=== PATIENT | male | born 1950 | race Caucasian/White ===

== ENCOUNTER 2017-12-13 12:55 | Emergency (ER) | payer MEDICARE, OTHER ==
[~2017-12-13] VITALS: Ht 177.8 cm; Wt 79.4 kg
--- OUTSIDE RECORDS SUMMARY | 2017-12-13 13:06 | XMS REPORT ---
Author Author Lui Renee [facility] Address [address] [place] [address] Care Team Providers Care Director Of Nursing Name Role Phone Lui Renee Unavailable PROBLEMS ALLERGIES Unknown Allergies SOCIAL HISTORY No smoking Hx information available PLAN OF CARE VITAL SIGNS MEDICATIONS RESULTS No Results PROCEDURES IMMUNIZATIONS No Known Immunizations
--- OUTSIDE RECORDS SUMMARY | 2017-12-13 13:06 | XMS REPORT | Referral Summary ---
Author Author [facility] Organization [facility] Address Unknown Phone Unavailable Care Team Providers Care Lane Attendant Name Role Phone No PCP, Pt States PCP Encounter VC Date(s): 03/23/17 - 03/29/17 [facility] [address] [place] [address] Discharge Disposition: 03-[facility] Facility Attending Physician: Laney Morse MD Admitting Physician: Matt Tyler MD Vital Signs Most recent to 1 oldest [Reference Range]: Temperature Oral 36.9 degC [35.8-37.3 degC] (03/29/17 12:06 PM) Peripheral Pulse 64 bpm Rate [60-100 bpm] (03/29/17 12:06 PM) Heart Rate Monitored 65 bpm [60-100 bpm] (03/27/17 8:00 AM) Respiratory Rate 16 br/min [14-20 br/min] (03/29/17 12:06 PM) Blood Pressure 131/61 mmHg [90-140/60-90 mmHg] (03/29/17 12:06 PM) Mean Arterial 118 mmHg Pressure, Cuff (03/24/17 12:54 AM) SpO2 98 % (03/29/17 12:06 PM) Remote Telemetry Ongoing (03/25/17 2:45 AM) Problem List Condition Effective Dates Status Health Status Informant Acute Active pain(Confirmed) At risk of pressure Active sore(Confirmed) CVA (cerebral Active patient vascular accident)(Confirmed) OH (myocardial Active patient infarction)(Confirme d) No Chronic Problems Active Tissue perfusion Active alteration(Confirmed )1 1Problem added automatically by system based on initiation of Tissue Perfusion Cerebral Plan of Care Allergies, Adverse Reactions, Alerts No Known Allergies Medications aspirin 81 mg oral tablet, chewable 81 mg 1 tabs, Oral, Daily, # 30 tabs, 0 Refill(s) Start Date: 03/29/17 Stop Date: 04/28/17 Status: Ordered atorvastatin 80 mg oral tablet 80 mg 1 tabs, Oral, Daily, 0 Refill(s) Start Date: 03/23/17 Status: Ordered terazosin 1 mg oral capsule 2 mg 2 caps, Oral, Bedtime (once a day), 0 Refill(s) Start Date: 03/23/17 Status: Ordered Results Hematology Most recent to 1 oldest [Reference Range]: WBC [4.8-10.8 9.9 10*3/uL 10*3/uL] (03/29/17 5:37 AM) RBC [4.60-6.20] 4.42 *LOW* (03/29/17 5:37 AM) Hgb [14.0-18.0 12.0 gm/dL gm/dL] *LOW* (03/29/17 5:37 AM) Hct [42.0-52.0 %] 36.9 % *LOW* (03/29/17 5:37 AM) MCV [82.0-99.0 fL] 83.5 fL (03/29/17 5:37 AM) MCH [27.0-32.0 pg] 27.1 pg (03/29/17 5:37 AM) MCHC [32.0-36.0 32.5 gm/dL gm/dL] (03/29/17 5:37 AM) RDW [11.5-14.5 %] 14.0 % (03/29/17 5:37 AM) Platelet [150-400 221 10*3/uL 10*3/uL] (03/29/17 5:37 AM) MPV [9.4-12.3 fL] 9.2 fL *LOW* (03/29/17 5:37 AM) Immature 1.0 % Granulocytes (03/24/17 6:14 AM) [0.0-1.0 %] Neutrophils [51-75 83 % %] *HI* (03/24/17 6:14 AM) Lymphocytes [20-46 7 % %] *LOW* (03/24/17 6:14 AM) Monocytes [4-11 %] 8 % (03/24/17 6:14 AM) Eosinophils [0-4 %] 0 % (03/24/17 6:14 AM) Basophils [0-2 %] 0 % (03/24/17 6:14 AM) Neutro Absolute 12.55 [1.90-7.00] *HI* (03/24/17 6:14 AM) Lymph Absolute 1.08 [0.80-3.30] (03/24/17 6:14 AM) [place] Absolute 1.23 [0.30-1.00] *HI* (03/24/17 6:14 AM) Eos Absolute 0.05 [0.00-0.50] (03/24/17 6:14 AM) Baso Absolute 0.01 [0.00-0.20] (03/24/17 6:14 AM) Nucleated RBC 0.0 /100 WBC Automated [0 /100 (03/24/17 6:14 AM) WBC] Smear Review By See pathology Pathologist (03/24/17 6:14 AM) Chemistry Most recent to 1 oldest [Reference Range]: Sodium Lvl [136-144 133 mEq/L mEq/L] *LOW* (03/29/17 5:37 AM) Potassium Lvl 4.3 mEq/L [3.6-5.1 mEq/L] (03/29/17 5:37 AM) Chloride [99-109 98 mEq/L mEq/L] *LOW* (03/29/17 5:37 AM) CO2 [22-32 mEq/L] 28 mEq/L (03/29/17 5:37 AM) AGAP [3-20 mEq/L] 7 mEq/L (03/29/17 5:37 AM) BUN [4-20 mg/dL] 22 mg/dL *HI* (03/29/17 5:37 AM) Glucose Lvl [70-100 62 mg/dL mg/dL] *LOW* (03/29/17 5:37 AM) Creatinine Lvl 1.09 mg/dL [0.64-1.27 mg/dL] (03/29/17 5:37 AM) eGFR [>60 mL/min] >60 mL/min 1 (03/29/17 5:37 AM) Calcium Lvl 9.1 mg/dL [8.6-10.0 mg/dL] (03/29/17 5:37 AM) Albumin Lvl [3.5-4.8 2.3 gm/dL gm/dL] *LOW* (03/28/17 6:06 AM) Total Protein 6.2 gm/dL [6.1-7.9 gm/dL] (03/23/17 4:00 PM) Globulin [1.9-4.3 3.7 gm/dL gm/dL] (03/23/17 4:00 PM) ALT [17-63 U/L] 26 U/L (03/23/17 4:00 PM) AST [15-41 U/L] 29 U/L (03/23/17 4:00 PM) Alk Phos [26-104 86 U/L U/L] (03/23/17 4:00 PM) Bili Total [0.2-1.2 1.0 mg/dL 2 mg/dL] (03/23/17 4:00 PM) Magnesium Lvl 2.3 mg/dL [1.8-2.5 mg/dL] (03/28/17 6:06 AM) Phosphorus [2.4-4.7 3.5 mg/dL 3 mg/dL] (03/28/17 6:06 AM) Total CK [49-397 22 U/L U/L] *LOW* (03/24/17 6:14 AM) Lactic Acid Lvl 0.9 mEq/L [0.5-2.2 mEq/L] (03/23/17 9:06 PM) 25-Hydroxy D Total 46 ng/mL 4 [30-100 ng/mL] (03/24/17 4:26 PM) Vitamin B12 Lvl 459 pg/mL [213-816 pg/mL] (03/24/17 4:26 PM) Chol [0-199 mg/dL] 110 mg/dL (03/24/17 4:26 PM) Trig [0-149 mg/dL] 67 mg/dL (03/24/17 4:26 PM) HDL [40-84 mg/dL] 24 mg/dL *LOW* (03/24/17 4:26 PM) LDL [0-130 mg/dL] 73 mg/dL (03/24/17 4:26 PM) VLDL Cholesterol 13 mg/dL [0-28 mg/dL] (03/24/17 4:26 PM) Cardiac Risk 4.6 [0.0-5.7] (03/24/17 4:26 PM) T4 Free [0.7-1.5 1.3 ng/dL ng/dL] (03/24/17 4:26 PM) TSH with Reflex Free 0.18 T4 [0.35-4.94] *LOW* (03/24/17 4:26 PM) Hgb A1c [4.1-5.6 %] 5.9 % *HI* (03/24/17 4:26 PM) eAvg Glucose 122.6 mg/dL (03/24/17 4:26 PM) Procalcitonin 0.75 ng/mL 5 [0.00-0.09 ng/mL] *HI* (03/24/17 6:14 AM) 1Result Comment: Multiply eGFR results by 1.21 for race. 2Result Comment: Naproxen, specifically the metabolite O-desmethylnaproxen, may cause spurious elevation in Total Bilirubin levels. 3Result Comment: High dosages of liposomal Amphotericin B (AmBisome) therapy or other drug preparations that use a liposomal envelope to facilitate drug delivery may cause falsely elevated results for phosphorus. 4Result Comment: Note new methodology, reference range and reporting of Vitamin D total only. A level consistently >200 is potentially toxic. 5Result Comment: Normal: <0.1 ng/mL (infants >72 hrs - adults) Suspected Lower Respiratory Tract Infection 0.10-0.25 ng/mL=Low likelihood for bacterial infection; Antibiotics discouraged. >0.25 ng/mL=Increased likelihood for bacterial infection; Antibiotics encouraged. Suspected Sepsis: Strongly consider initiating antibiotics in all unstable patients. 0.10-0.50 ng/mL=Low likelihood for sepsis; Antibiotics discouraged. >0.50 ng/mL=Increased likelihood for sepsis; Antibiotics encouraged. Decisions on antibiotic use should not be based solely on procalcitonin levels. If antibiotics are administered, repeat procalcitonin testing should be obtained every 2-3 days to consider early antibiotic cessation. PCT is a dynamic biomarker and most useful when trends are analyzed over time in accompaniment with other clinical data. Interpretation should be based upon clinical context and algorithms. Toxicology Most recent to 1 oldest [Reference Range]: U Amphetamine Scrn Negative (03/23/17 4:50 PM) U Cocaine Scrn Negative (03/23/17 4:50 PM) U Cannab Scrn Negative (03/23/17 4:50 PM) U Opiate Scrn Negative (03/23/17 4:50 PM) U PCP Scrn Negative (03/23/17 4:50 PM) U Benzodiazepine Negative Scrn (03/23/17 4:50 PM) U Barbiturate Scrn Negative (03/23/17 4:50 PM) Methadone Lvl Negative (03/23/17 4:50 PM) Tricyclics Not Detected 1 (03/23/17 4:50 PM) 1Result Comment: Cut-off concentrations: Amphetamines: 1000 ng/mL Cocaine: 300 ng/mL Cannabinoid: 50 ng/mL Opiate: 300 ng/mL Phencyclidine (PCP): 25 ng/mL Benzodiazepine: 200 ng/mL Barbiturate: 200 ng/mL Methadone: 300 ng/mL Tricyclic: 300 ng/mL The urine drug screen assays are qualitative screens. A more specific GC/MS method must be performed to obtain a confirmed analytical result. Unconfirmed screening results must not be used for non-medical purposes(e.g. employment or legal testing) Urinalysis Most recent to 1 oldest [Reference Range]: UA Color Maite *ABN* (03/23/17 4:50 PM) UA Appear Clear (03/23/17 4:50 PM) UA pH [5.0-8.0] 6.0 (03/23/17 4:50 PM) UA Leuk Est Negative [Negative] (03/23/17 4:50 PM) UA Nitrite Negative [Negative] (03/23/17 4:50 PM) UA Protein Negative [Negative] (03/23/17 4:50 PM) UA Glucose Negative [Negative] (03/23/17 4:50 PM) UA Ketones Negative [Negative] (03/23/17 4:50 PM) UA Urobilinogen 2.0 mg/dL [<1.0 mg/dL] *ABN* (03/23/17 4:50 PM) UA Bili [Negative] Negative (03/23/17 4:50 PM) UA Blood [Negative] Pos 2+ *ABN* (03/23/17 4:50 PM) UA Spec Grav 1.020 [1.003-1.030] (03/23/17 4:50 PM) Type Catheter (03/23/17 4:50 PM) UA WBC [0-4] 0-2 (03/23/17 4:50 PM) UA RBC [0-2] 2-5 (03/23/17 4:50 PM) Epithelial Cells None Seen (03/23/17 4:50 PM) UA Bacteria None Seen (03/23/17 4:50 PM) UA Mucous Present (03/23/17 4:50 PM) Microbiology Reports TEST: Blood Culture STATUS: Auth (Verified) BODY SITE: SOURCE: Blood COLLECTED DATE/TIME: 03/23/17 9:11 PM Blood Culture No growth after 5 days of incubation. TEST: Blood Culture STATUS: Auth (Verified) BODY SITE: SOURCE: Blood COLLECTED DATE/TIME: 03/23/17 9:06 PM Blood Culture No growth after 5 days of incubation. Immunizations No data available for this section Procedures Procedure Date Related Diagnosis Body Site Procedure1 1leg surgery Social History Social History Type Response Smoking Status Former smoker Assessment and Plan No data available for this section
--- OUTSIDE RECORDS SUMMARY | 2017-12-13 13:06 | XMS REPORT ---
Author Author Lui Renee [facility] Address [address] [place] [address] Care Team Providers Care Shovel Mechanic Name Role Phone Lui Renee Unavailable PROBLEMS Type Condition ICD9-CM Code [id number] Code Onset Dates Condition Status SNOMED Code Problem Other specified counseling V65.49 Inactive 361387483 Problem Other and unspecified angina pectoris 413.9 Inactive 232305088 Problem Hypertrophy (benign) of prostate without urinary obstruction and other lower urinary tract symptoms [LUTS] 600.00 Inactive 815261563 Problem Special screening for malignant neoplasms, colon V76.51 Inactive 619940005 Problem Nocturia 788.43 Inactive 800592376 Problem Vaccination not carried out because of patient refusal V64.06 Inactive 221236030637 Problem Personal history of tobacco use, presenting hazards to health V15.82 Inactive 9412906957853 Problem Prostatic hyperplasia N40.0 Active 378387939 Problem Hypertension I10 Active 93582610 Problem Obesity E66.9 Active 297202706 Problem Unspecified cerebrovascular disease 437.9 Inactive 24710737 Problem Hyperlipemia E78.5 Active 45289035 Problem CVA (cerebral vascular accident) I63.9 Active 067177572 ALLERGIES Unknown Allergies SOCIAL HISTORY No smoking Hx information available PLAN OF CARE VITAL SIGNS MEDICATIONS Medication Instructions Dosage Frequency Start Date End Date Duration Status Atorvastatin Calcium 80 MG Orally Once a day 1 tablet 24h Jul, 90 days Active RESULTS No Results PROCEDURES No Known procedures IMMUNIZATIONS No Known Immunizations
--- OUTSIDE RECORDS SUMMARY | 2017-12-13 13:06 | XMS REPORT ---
Author Author Lui Renee [facility] Address [address] [place] [address] Care Team Providers Care Actuarial Manager Name Role Phone Lui Renee Unavailable PROBLEMS Type Condition ICD9-CM Code [id number] Code Onset Dates Condition Status SNOMED Code Problem Other specified counseling V65.49 Inactive 722232781 Problem Other and unspecified angina pectoris 413.9 Inactive 819340596 Problem Hypertrophy (benign) of prostate without urinary obstruction and other lower urinary tract symptoms [LUTS] 600.00 Inactive 136684705 Problem Special screening for malignant neoplasms, colon V76.51 Inactive 771491386 Problem Nocturia 788.43 Inactive 798323946 Problem Vaccination not carried out because of patient refusal V64.06 Inactive 980260456152 Problem Personal history of tobacco use, presenting hazards to health V15.82 Inactive 6574337685273 Problem Prostatic hyperplasia N40.0 Active 271274237 Problem Hypertension I10 Active 87706107 Problem Obesity E66.9 Active 069222267 Problem Unspecified cerebrovascular disease 437.9 Inactive 72126416 Problem Hyperlipemia E78.5 Active 92229821 Problem CVA (cerebral vascular accident) I63.9 Active 614662809 ALLERGIES Unknown Allergies SOCIAL HISTORY No smoking Hx information available PLAN OF CARE VITAL SIGNS MEDICATIONS Unknown Medications RESULTS No Results PROCEDURES No Known procedures IMMUNIZATIONS No Known Immunizations
--- OUTSIDE RECORDS SUMMARY | 2017-12-13 13:06 | XMS REPORT ---
Author Author Lui Renee [facility] Address [address] [place] [address] Care Team Providers Care Instructional Manager Name Role Phone Ariana Ragland Lui Unavailable PROBLEMS Type Condition ICD9-CM Code DSI82-AW Code Onset Dates Condition Status SNOMED Code Problem Nocturia 788.43 Inactive 972748246 Problem Unspecified cerebrovascular disease 437.9 Inactive 69117095 Problem Hypertrophy (benign) of prostate without urinary obstruction and other lower urinary tract symptoms [LUTS] 600.00 Inactive 468300279 Problem Special screening for malignant neoplasms, colon V76.51 Inactive 959452600 Problem Other specified counseling V65.49 Inactive 940234084 Problem Vaccination not carried out because of patient refusal V64.06 Inactive 399254685261 Problem Personal history of tobacco use, presenting hazards to health V15.82 Inactive 1005570718253 Problem Prostatic hyperplasia N40.0 Active 255782493 Problem CVA (cerebral vascular accident) I63.9 Active 119809453 Problem Hyperlipemia E78.5 Active 93379422 Problem Other and unspecified angina pectoris 413.9 Inactive 519551229 Problem Hypertension I10 Active 56622531 Problem Obesity E66.9 Active 736937320 ALLERGIES No Information SOCIAL HISTORY Never Assessed PLAN OF CARE VITAL SIGNS MEDICATIONS Unknown Medications RESULTS No Results PROCEDURES No Known procedures IMMUNIZATIONS No Known Immunizations MEDICAL (GENERAL) HISTORY Type Description Date Medical History ACUTE, BUT ILL-DEFINED, CEREBROVASCULAR DISEASE (436.) ; Medical History HTN (hypertension) (401.9) ; Medical History Tobacco abuse, 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 Medical History Residual Dysarthria and Gait Disturbance- Ambulates with Cane ; Medical History Benign prostate hyperplasia
--- OUTSIDE RECORDS SUMMARY | 2017-12-13 13:06 | XMS REPORT ---
Author Author Lui Renee Organization [employer] Address Unknown Phone Unavailable Care Team Providers Care Cosmetology Educator Name Role Phone Lui Renee CP Unavailable Allergies No Known Allergies Problems Problem Type Condition Code Onset Dates Condition Status Problem Personal history of tobacco use, presenting hazards to health V15.82 Inactive Problem Hypertrophy (benign) of prostate without urinary obstruction and other lower urinary tract symptoms [LUTS] 600.00 Inactive Problem Other specified counseling V65.49 Inactive Problem Hyperlipemia E78.5 Active Problem CVA (cerebral vascular accident) I63.9 Active Problem Hypertension I10 Active Problem Unspecified cerebrovascular disease 437.9 Inactive Problem Other and unspecified angina pectoris 413.9 Inactive Problem BPH (benign prostatic hyperplasia) N40.0 Active Problem Obesity E66.9 Active Problem Special screening for malignant neoplasms, colon V76.51 Inactive Problem Nocturia 788.43 Inactive Problem Vaccination not carried out because of patient refusal V64.06 Inactive Medications No Known Medications Results No Known Results Summary Purpose [employer] Submission
--- OUTSIDE RECORDS SUMMARY | 2017-12-13 13:06 | XMS REPORT ---
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 Active Problem Hyperplasia of prostate, unspecified, without urinary obstruction and other lower urinary tract symptoms [LUTS] 600.90 Active Problem Unspecified essential hypertension 401.9 Active Problem Other and unspecified hyperlipidemia 272.4 Active Problem Unspecified cerebrovascular disease 437.9 Inactive Problem Hypertrophy (benign) of prostate without urinary obstruction and other lower urinary tract symptoms [LUTS] 600.00 Inactive Problem Other specified counseling V65.49 Inactive Problem Other and unspecified angina pectoris 413.9 Inactive Problem Anxiety state, unspecified 300.00 Active Problem Special screening for malignant neoplasms, colon V76.51 Inactive Problem Nocturia 788.43 Inactive Assessment Unspecified essential hypertension 401.9 Active Problem Vaccination not carried out because of patient refusal V64.06 Inactive Problem Obesity, unspecified 278.00 Active Problem Orthostatic hypotension 458.0 Active Medications Medication Code System Code Instructions Start Date End Date Status Dosage Lisinopril-Hydrochlorothiazide [facility] [address]-18 20-12.5 MG Orally Once a day Jul 23, 2014 Active 1 tablet Results No Known Results Summary Purpose [employer] Submission
--- OUTSIDE RECORDS SUMMARY | 2017-12-13 13:07 | XMS REPORT | Continuity of Care Document ---
Author Author [facility] Organization [facility] Address Unknown Phone Unavailable Allergies Active Description Code Type Severity Reaction Onset Reported/Identified Relationship to Patient Clinical Status Yes Penicillins Penicillins Drug Allergy Moderate RASH 10/07/2011 Yes No Known Allergies NKMA N/A N/A 03/23/2017 Yes penicillin NKMA N/A [id number] 05/07/2017 Medications Medication Packaging Start Date Stop Date Route Dosage Sig terazosin(terazosin 1 mg oral capsule) 2 caps 03/23/2017 Oral 2 mg 2 mg=2 caps, Oral, Bedtime (once a day), 0 Refill(s) atorvastatin(atorvastatin 80 mg oral tablet) 1 tabs 03/23/2017 Oral 80 mg 80 mg=1 tabs, Oral, Daily, 0 Refill(s) metoclopramide(Reglan) 2 mL 201603/29/2017 IV Push 10 mg 10 mg=2 mL, IV Push, q6hr, PRN: Nausea atorvastatin(atorvastatin) 1 tabs 03/23/2017 03/24/2017 Oral 80 mg 80 mg=1 tabs, Oral, Daily docusate(Colace) 1 caps 03/23/2017 03/29/2017 Oral 100 mg 100 mg=1 caps, Oral, BID ondansetron(Zofran) 2 mL 201603/29/2017 IV Push 4 mg 4 mg=2 mL, IV Push, q6hr, PRN: Nausea terazosin(terazosin) 1 caps 201603/29/2017 Oral 2 mg 2 mg=1 caps, Oral, Bedtime (once a day) polyethylene glycol 3350(MiraLax) 1 packets 03/23/2017 03/29/2017 Oral 17 g 17 g=1 packets, Oral, Daily, PRN: Constipation enoxaparin(Lovenox) 0.4 mL 201603/29/2017 SubCutaneous 40 mg 40 mg=0.4 mL, SubCutaneous, Bedtime (once a day) Sodium Chloride 0.9%(Sodium Chloride 0.9% 1,000 mL) 1,000 mL 03/23/2017 03/26/2017 IV 80 mL/hr, IV acetaminophen(acetaminophen) 2 tabs 03/23/2017 03/29/2017 Oral 650 mg 650 mg=2 tabs, Oral, q4hr, PRN: Other (See Comment) potassium chloride(potassium chloride 20 mEq oral tablet, extended release) 2 tabs 03/24/20172016 Oral 40 mEq 40 mEq=2 tabs, Oral, BID aspirin(aspirin) 1 tabs 03/24/2017 03/29/2017 Oral 81 mg 81 mg=1 tabs, Oral, Daily potassium chloride(potassium chloride 10 mEq/50 mL intravenous solution) 50 mL 03/24/20172016 IV Piggyback 10 mEq 10 mEq=50 mL, 50 mL/hr, IV Piggyback, q1hr aspirin(aspirin 81 mg oral tablet, chewable) 1 tabs 03/29/2017 04/28/2017 Oral 81 mg 81 mg=1 tabs, Oral, Daily, for 30 days, 30 tabs, 0 Refill(s) cefTRIAXone(Rocephin) 10 mL 201605/07/2017 IV Push 1 g 1 g=10 mL, IV Push, Once cephalexin(cephalexin 500 mg oral tablet) 1 tabs 05/07/2017 05/14/2017 Oral 500 mg 500 mg=1 tabs, Oral, BID, for 7 days, 14 tabs, 0 Refill(s) Problems Date Dx Coded Attending Type Code Diagnosis Diagnosed By 05/10/2017 Bass Denise Final I10 Essential (primary) hypertension 05/10/2017 Bass Denise Final I25.2 Old myocardial infarction 05/10/2017 Bass Denise Final N39.0 Urinary tract infection, site not specified 05/10/2017 Bass Denise Reason R42 Dizziness and giddiness 05/10/2017 Bass Denise 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 <section xmlns="urn:hl7-org:v3" xmlns:xsi="http:// www.Twitmusic3.org/2001/XMLSchema-instance"> <templateId root= "[email or web address]" /> <templateId root= "[id number]" /> <code codeSystemName="LOINC" codeSystem= "[id number]" code="00086-8" displayName="Results" /> <title>Results< /title> <text> <table> <thead> <tr> <th>Test</th> <th>Result</th> <th>Range</th> </tr> </thead> < tbody> <tr> <th colspan="10">CBC W/DIFF - 09/28/16 11:22</th> </tr> <tr> <td>COMMENT</td> <td>REVIEWED </td> <td /> </tr> <tr> <td>DOHLE BODIES</td> <td>NOTED </td> <td /> </tr> <tr> <td> GRANULOCYTE #</td> <td>16.6 k/cumm</td> <td>2.0-9.0</td> </tr> <tr> <td>GRANULOCYTE %</td> <td>91 %</ td> <td>50-75</td> </tr> <tr> <td>LYMPHOCYTE #</ td> <td>0.3 k/cumm</td> <td>1.0-4.0</td> </tr> < tr> <td>LYMPHOCYTE %</td> <td>2 %</td> <td>20 -30</td> </tr> <tr> <td>MEAN CELL HGB</td> <td> 27.3 pg</td> <td>27.0-33.0</td> </tr> <tr> <td> MEAN CELL HGB CONCENTRATION</td> <td>34.2 g/dL</td> <td>32.0- 37.0</td> </tr> <tr> <td>MEAN CELL VOLUME</td> < td>79.6 fl</td> <td>80.0-100.0</td> </tr> <tr> < td>MONOCYTE #</td> <td>1.3 k/cumm</td> <td>0.1-1.0</td> </tr> <tr> <td>MONOCYTE %</td> <td>7 %</td> <td>4-6</td> </tr> <tr> <td>RED BLOOD CELL</td> <td>5.54 m/cumm</td> <td>4.00-6.00</td> </tr> < tr> <td>RED CELL DISTRIBUTION WIDTH</td> <td>13.5 %</td> <td>11.0-15.6</td> </tr> <tr> <td>WHITE BLOOD CELL</td> <td>18.2 k/cumm</td> <td>5.0-10.0</td> </tr> <tr> <td>HEMOGLOBIN</td> <td>15.1 gm/dL</td> <td>14.0-18.0</td> </tr> <tr> <td>HEMATOCRIT</td> <td>44.1 %</td> <td>40.0-54.0</td> </tr> <tr> <td>PLATELET COUNT</td> <td>102 k/cumm</td> <td>150-400< /td> </tr> <tr> <th colspan="10">ALCOHOL (ETHANOL) SERUM - 09/28/16 11:22</th> </tr> <tr> <td>ALCOHOL (ETHANOL) SERUM</td> <td>< 10 mg/dL</td> <td> < 10</td> </ tr> <tr> < colspan="10">CHEM/HEM PROFILE-BEDSIDE - 09/28/16 11 :30</th> </tr> <tr> <td>POTASSIUM</td> <td>3.5 mmol/L</td> <td>3.5-5.3</td> </tr> <tr> <td> METHOD</td> <td>Bedside </td> <td /> </tr> <tr> <td>ANION GAP</td> <td>19 mmol/L</td> <td>10-20</td > </tr> <tr> <td>METHOD</td> <td>Bedside </td> <td /> </tr> <tr> <td>GLUCOSE</td> <td> 119 mg/dL</td> <td>70-99</td> </tr> <tr> <td> BLOOD UREA NITROGEN</td> <td>40 mg/dL</td> <td>7-20</td> </tr> <tr> <td>CREATININE</td> <td>1.5 mg/dL</td> <td>0.7-1.3</td> </tr> <tr> <td>HEMOGLOBIN</td> <td>15.3 gm/dL</td> <td>14.0-18.0</td> </tr> <tr > <td>HEMATOCRIT</td> <td>45.0 %</td> <td>40.0- 54.0</td> </tr> <tr> <td>SODIUM</td> <td>131 mmol/L</td> <td>135-148</td> </tr> <tr> <td> CHLORIDE</td> <td>96 mmol/L</td> <td>98-110</td> </tr> <tr> <td>CARBON DIOXIDE</td> <td>21 mmol/L</td> <td>21-32</td> </tr> <tr> <td>CALCIUM IONIZED</td> <td>4.7 mg/dL</td> <td>4.5-5.3</td> </tr> <tr> <th colspan="10">BLOOD CULTURE - 09/28/16 13:05</th> </tr> <tr> <td>Microbiology</td> <td> </td> <td /> </tr> <tr> <th colspan="10">LACTIC ACID - 09/28/16 13:05</th> </tr> <tr> <td>LACTIC ACID</td> <td>2.3 mmol/L< /td> <td>0.5-2.0</td> </tr> <tr> <th colspan="10 ">BLOOD CULTURE - 09/28/16 13:09</th> </tr> <tr> <td> Microbiology</td> <td> </td> <td /> </tr> <tr> <th colspan="10">INFLUENZA A OIA - INFLUENZA B OIA - 09/28/16 13:58</th > </tr> <tr> <td>Microbiology</td> <td> </td> <td /> </tr> <tr> <th colspan="10">URINALYSIS, ROUTINE - 09/28/16 14:10</th> </tr> <tr> <td>UA LEUKOCYTE ESTERASE DIPSTICK</td> <td>TRACE </td> <td>NEGATIVE< /td> </tr> <tr> <td>UA NITRITE DIPSTICK</td> <td >POSITIVE </td> <td>NEGATIVE</td> </tr> <tr> <td >UA PROTEIN DIPSTICK</td> <td>TRACE </td> <td>NEGATIVE</td> </tr> <tr> <td>UA GLUCOSE DIPSTICK</td> <td> NEGATIVE </td> <td>NEGATIVE</td> </tr> <tr> <td> UA KETONE DIPSTICK</td> <td>1+ </td> <td>NEGATIVE</td> </tr> <tr> <td>UA UROBILINOGEN DIPSTICK</td> <td>2+ </ td> <td>NORMAL</td> </tr> <tr> <td>UA BILIRUBIN DIPSTICK</td> <td>POSITIVE </td> <td>NEGATIVE</td> </tr > <tr> <td>UA BLOOD DIPSTICK</td> <td>1+ </td> <td>NEGATIVE</td> </tr> <tr> <td>UA SPECIFIC GRAVITY</ td> <td>1.029 </td> <td>1.015-1.025</td> </tr> < tr> <td>UR PH</td> <td>5.0 </td> <td>5.0-7.0</td> </tr> <tr> < colspan="10">UA MICROSCOPIC - 09/28/16 14:10 </th> </tr> <tr> <td>UA AMORPHOUS SEDIMENT</td> <td>2+ </td> <td /> </tr> <tr> <td>UA BACTERIA</ td> <td>1+ </td> <td>NEGATIVE</td> </tr> <tr> <td>UA RBC</td> <td>5-10 rbc/hpf</td> <td>0 - 3</td> </tr> <tr> <td>UA VOLUME FOR EXAM</td> <td>12.0 mL</td> <td>(12mL STD)</td> </tr> <tr> <td>UA WBC</td> <td>0-1 wbc/hpf</td> <td>0 - 5</td> </tr> <tr> < colspan="10">UR DRUGS OF ABUSE SCREEN - 09/28/16 14:10</th > </tr> <tr> <td>UR AMPHETAMINES SCREEN</td> <td >NEG (<1000 ng/mL) </td> <td>NEGATIVE</td> </tr> <tr > <td>UR BARBITURATE SCREEN</td> <td>NEG (< 200 ng/mL) </ td> <td>NEGATIVE</td> </tr> <tr> <td>DRUGS OF ABUSE SCREEN COMMENT</td> <td> </td> <td /> </tr> <tr> <td>UR OPIATES SCREEN</td> <td>NEG (< 300 ng/ mL) </td> <td>NEGATIVE</td> </tr> <tr> <td>UR PHENCYCLIDINE (PCP) SCREEN</td> <td>NEG (< 25 ng/mL) </td> <td>NEGATIVE</td> </tr> <tr> <td>UR CANNABINOIDS (THC ) SCREEN</td> <td>NEG (< 50 ng/mL) </td> <td>NEGATIVE</td > </tr> <tr> <td>UR COCAINE METABOLITE SCREEN</td> <td>NEG (< 300 ng/mL) </td> <td>NEGATIVE</td> </tr> <tr> <td>UR METHADONE SCREEN</td> <td>NEG (< 300 ng/mL ) </td> <td>NEGATIVE</td> </tr> <tr> <td>UR BENZODIAZEPINE SCREEN</td> <td>NEG (< 200 ng/mL) </td> <td >NEGATIVE</td> </tr> <tr> <th colspan="10">CBC With Platelet and Differential - 05/07/17 13:55</th> </tr> <tr> <td>Absolute Basophils</td> <td>0.03 10*3/uL</td> <td>0.00- 0.20</td> </tr> <tr> <td>Absolute Eosinophils</td> <td>0.04 10*3/uL</td> <td>0.00-0.50</td> </tr> <tr> <td>Absolute Lymphocytes</td> <td>1.15 10*3/uL</td> < td>0.80-3.30</td> </tr> <tr> <td>Absolute Monocytes</td> <td>0.60 10*3/uL</td> <td>0.30-1.00</td> </tr> <tr> <td>Absolute Neutrophils</td> <td>4.22 10*3/uL</td> <td>1.90-7.00</td> </tr> <tr> <td>Basophils</td> <td>1 %</td> <td>0-2</td> </tr> <tr> <td>Eosinophils</td> <td>1 %</td> <td>0-4</td> </tr > <tr> <td>HCT</td> <td>42.5 %</td> <td> 42.0-52.0</td> </tr> <tr> <td>HGB</td> <td>14.4 g/dL</td> <td>14.0-18.0</td> </tr> <tr> <td> Immature Granulocytes</td> <td>0.3 %</td> <td>0.0-1.0</td > </tr> <tr> <td>Lymphocytes</td> <td>19 %</ td> <td>20-46</td> </tr> <tr> <td>MCH</td> <td>27.9 pg</td> <td>27.0-32.0</td> </tr> <tr> <td>MCHC</td> <td>33.9 g/dL</td> <td>32.0-36.0</td> </tr> <tr> <td>MCV</td> <td>82.4 fL</td> < td>82.0-99.0</td> </tr> <tr> <td>Monocytes</td> <td>10 %</td> <td>4-11</td> </tr> <tr> <td> MPV</td> <td>9.4 fL</td> <td>9.4-12.3</td> </tr> <tr> <td>Neutrophils</td> <td>70 %</td> <td>51- 75</td> </tr> <tr> <td>Nucleated RBC Automated</td> <td>0.0 /100 WBC</td> <td /> </tr> <tr> <td >Platelet Count</td> <td>179 K/uL</td> <td>150-400</td> </tr> <tr> <td>RBC</td> <td>5.16 10*6/uL</td> <td>4.60-6.20</td> </tr> <tr> <td>RDW</td> < td>15.5 %</td> <td>11.5-14.5</td> </tr> <tr> <td>WBC</td> <td>6.1 K/uL</td> <td>4.8-10.8</td> </tr > <tr> <th colspan="10">Comprehensive Metabolic Panel (CMP) - 13:55</th> </tr> <tr> <td>Albumin</td> < td>3.8 g/dL</td> <td>3.5-4.8</td> </tr> <tr> <td >Alkaline Phosphatase</td> <td>75 U/L</td> <td>26-104</td> </tr> <tr> <td>ALT (SGPT)</td> <td>17 U/L</td> <td>17-63</td> </tr> <tr> <td>Anion Gap</td> <td>11 mEq/L</td> <td>3-20</td> </tr> <tr> <td>AST (SGOT)</td> <td>22 U/L</td> <td>15-41</td> </tr > <tr> <td>Bilirubin Total</td> <td>0.8 mg/dL</td> <td>0.2-1.2</td> </tr> <tr> <td>BUN</td> < td>13 mg/dL</td> <td>4-20</td> </tr> <tr> <td> Calcium</td> <td>9.5 mg/dL</td> <td>8.6-10.0</td> </tr > <tr> <td>Chloride</td> <td>104 mEq/L</td> < td>99-109</td> </tr> <tr> <td>CO2</td> <td>23 mEq/L</td> <td>22-32</td> </tr> <tr> <td> Creatinine</td> <td>1.11 mg/dL</td> <td>0.64-1.27</td> </tr> <tr> <td>Globulin</td> <td>2.9 g/dL</td> <td>1.9-4.3</td> </tr> <tr> <td>Glucose</td> < td>98 mg/dL</td> <td>70-100</td> </tr> <tr> <td> Potassium</td> <td>3.5 mEq/L</td> <td>3.6-5.1</td> </tr > <tr> <td>Protein</td> <td>6.7 g/dL</td> <td> 6.1-7.9</td> </tr> <tr> <td>Sodium</td> <td>138 mEq/L</td> <td>136-144</td> </tr> <tr> <th colspan="10">eGFR - 05/07/17 13:55</th> </tr> <tr> <td> eGFR</td> <td>>60 mL/min</td> <td>>60</td> </tr> <tr> <th colspan="10">Troponin - 05/07/17 13:55</th> </ tr> <tr> <td>Troponin</td> <td><0.05 ng/mL</td> <td><0.06</td> </tr> <tr> <th colspan="10"> Urinalysis with reflex microscopic - 05/07/17 16:38</th> </tr> <tr > <td>Appearance</td> <td>Cloudy NA</td> <td /> </tr> <tr> <td>Bilirubin</td> <td>Negative NA</td> <td>Negative</td> </tr> <tr> <td>Blood</td> <td>Negative NA</td> <td>Negative</td> </tr> <tr> <td>Color</td> <td>Yellow NA</td> <td /> </tr > <tr> <td>Glucose, Urine</td> <td>Negative </td> <td>Negative</td> </tr> <tr> <td>Ketones</td> <td>Pos 1+ </td> <td>Negative</td> </tr> <tr> <td>Leukocyte Esterase</td> <td>Trace NA</td> <td>Negative< /td> </tr> <tr> <td>Nitrites</td> <td>Negative NA</td> <td>Negative</td> </tr> <tr> <td>pH</td > <td>5.0 NA</td> <td>5.0-8.0</td> </tr> <tr> <td>Protein</td> <td>Pos 1+ NA</td> <td>Negative</td> </tr> <tr> <td>Specific [place]</td> <td>1.025 NA</td> <td>1.003-1.030</td> </tr> <tr> <td>UA Collection type</td> <td>Clean Catch NA</td> <td /> </ tr> <tr> <td>Urobilinogen</td> <td>4.0 mg/dL</td> <td><1.0</td> </tr> <tr> <th colspan="10">Urine Microscopic - 05/07/17 16:38</th> </tr> <tr> <td>Bacteria </td> <td>Occasional NA</td> <td /> </tr> <tr> <td>Crystals</td> <td>Ca Ox NA</td> <td /> </ tr> <tr> <td>Epithelial Cells</td> <td>2 /HPF</td> <td /> </tr> <tr> <td>RBC, Urine</td> <td> 10 /HPF</td> <td>0-2</td> </tr> <tr> <td>Urine Mucus</td> <td>Present NA</td> <td /> </tr> <tr > <td>WBC, Urine</td> <td>20 /HPF</td> <td>0-4</td> </tr> <tr> <th colspan="10">CBC With Platelet and Differential - 08/05/17 01:46</th> </tr> <tr> <td> Absolute Basophils</td> <td>0.03 10*3/uL</td> <td>0.00-0.20</ td> </tr> <tr> <td>Absolute Eosinophils</td> <td >0.15 10*3/uL</td> <td>0.00-0.50</td> </tr> <tr> <td>Absolute Lymphocytes</td> <td>1.44 10*3/uL</td> <td>0.80 -3.30</td> </tr> <tr> <td>Absolute Monocytes</td> <td>0.75 10*3/uL</td> <td>0.30-1.00</td> </tr> <tr> <td>Absolute Neutrophils</td> <td>7.74 10*3/uL</td> < td>1.90-7.00</td> </tr> <tr> <td>Basophils</td> <td>0 %</td> <td>0-2</td> </tr> <tr> <td> Eosinophils</td> <td>2 %</td> <td>0-4</td> </tr> <tr> <td>HCT</td> <td>46.8 %</td> <td>42.0- 52.0</td> </tr> <tr> <td>HGB</td> <td>15.8 g/dL< /td> <td>14.0-18.0</td> </tr> <tr> <td>Immature Granulocytes</td> <td>0.3 %</td> <td>0.0-1.0</td> < /tr> <tr> <td>Lymphocytes</td> <td>14 %</td> <td>20-46</td> </tr> <tr> <td>MCH</td> <td> 29.0 pg</td> <td>27.0-32.0</td> </tr> <tr> <td> MCHC</td> <td>33.8 g/dL</td> <td>32.0-36.0</td> </tr> <tr> <td>MCV</td> <td>86.0 fL</td> <td>82.0- 99.0</td> </tr> <tr> <td>Monocytes</td> <td>7 &# 37;</td> <td>4-11</td> </tr> <tr> <td>MPV</td> <td>10.8 fL</td> <td>9.4-12.3</td> </tr> <tr> <td>Neutrophils</td> <td>76 %</td> <td>51-75</td> </tr> <tr> <td>Nucleated RBC Automated</td> <td >0.0 /100 WBC</td> <td /> </tr> <tr> <td> Platelet Count</td> <td>208 K/uL</td> <td>150-400</td> </tr> <tr> <td>RBC</td> <td>5.44 10*6/uL</td> <td>4.60-6.20</td> </tr> <tr> <td>RDW</td> <td> 13.7 %</td> <td>11.5-14.5</td> </tr> <tr> < td>WBC</td> <td>10.1 K/uL</td> <td>4.8-10.8</td> </tr> <tr> < colspan="10">Urinalysis with reflex microscopic - 01:46</th> </tr> <tr> <td>Appearance</td> <td>Clear NA</td> <td /> </tr> <tr> <td> Bilirubin</td> <td>Negative NA</td> <td>Negative</td> < /tr> <tr> <td>Blood</td> <td>Pos 2+ NA</td> < td>Negative</td> </tr> <tr> <td>Color</td> <td> Colorless NA</td> <td /> </tr> <tr> <td>Glucose , Urine</td> <td>Negative </td> <td>Negative</td> </tr > <tr> <td>Ketones</td> <td>Negative </td> <td >Negative</td> </tr> <tr> <td>Leukocyte Esterase</td> <td>Negative NA</td> <td>Negative</td> </tr> <tr> <td>Nitrites</td> <td>Negative NA</td> <td>Negative< /td> </tr> <tr> <td>pH</td> <td>7.0 NA</td> <td>5.0-8.0</td> </tr> <tr> <td>Protein</td> <td>Negative NA</td> <td>Negative</td> </tr> <tr> <td>Specific [place]</td> <td><1.003 NA</td> <td> 1.003-1.030</td> </tr> <tr> <td>UA Collection type</td> <td>Clean Catch NA</td> <td /> </tr> <tr> <td>Urobilinogen</td> <td>Negative mg/dL</td> <td><1.0< /td> </tr> <tr> < colspan="10">Urine Microscopic - 01:46</th> </tr> <tr> <td>Bacteria</td> < td>None Seen NA</td> <td /> </tr> <tr> <td> Epithelial Cells</td> <td>None Seen /HPF</td> <td /> </ tr> <tr> <td>RBC, Urine</td> <td>0 /HPF</td> < td>0-2</td> </tr> <tr> <td>WBC, Urine</td> <td> 0 /HPF</td> <td>0-4</td> </tr> <tr> < colspan= "10">Comprehensive Metabolic Panel (CMP) - 08/05/17 01:46</th> </tr> <tr> <td>Albumin</td> <td>4.2 g/dL</td> <td>3.5- 4.8</td> </tr> <tr> <td>Alkaline Phosphatase</td> <td>78 U/L</td> <td>26-104</td> </tr> <tr> < td>ALT (SGPT)</td> <td>18 U/L</td> <td>17-63</td> </tr > <tr> <td>Anion Gap</td> <td>8 mEq/L</td> <td >3-20</td> </tr> <tr> <td>AST (SGOT)</td> <td> 26 U/L</td> <td>15-41</td> </tr> <tr> <td> Bilirubin Total</td> <td>1.0 mg/dL</td> <td>0.2-1.2</td> </tr> <tr> <td>BUN</td> <td>14 mg/dL</td> < td>4-20</td> </tr> <tr> <td>Calcium</td> <td> 9.7 mg/dL</td> <td>8.6-10.0</td> </tr> <tr> <td> Chloride</td> <td>98 mEq/L</td> <td>99-109</td> </tr> <tr> <td>CO2</td> <td>29 mEq/L</td> <td>22-32< /td> </tr> <tr> <td>Creatinine</td> <td>0.96 mg/ dL</td> <td>0.64-1.27</td> </tr> <tr> <td> Globulin</td> <td>3.0 g/dL</td> <td>1.9-4.3</td> </tr> <tr> <td>Glucose</td> <td>120 mg/dL</td> <td> 70-100</td> </tr> <tr> <td>Potassium</td> <td> 3.0 mEq/L</td> <td>3.6-5.1</td> </tr> <tr> <td> Protein</td> <td>7.2 g/dL</td> <td>6.1-7.9</td> </tr> <tr> <td>Sodium</td> <td>135 mEq/L</td> <td> 136-144</td> </tr> <tr> <th colspan="10">Lactic Acid Venous - 08/05/17 01:46</th> </tr> <tr> <td>Lactic Acid Venous</td> <td>1.1 mEq/L</td> <td>0.5-2.0</td> </tr> <tr> <th colspan="10">eGFR - 08/05/17 01:46</th> </tr> <tr> <td>eGFR</td> <td>>60 mL/min</td> <td>& gt;60</td> </tr> <tr> <th colspan="10">Magnesium - 01:46</th> </tr> <tr> <td>Magnesium</td> <td> 1.9 mg/dL</td> <td>1.8-2.5</td> </tr> </tbody> </table> </text> <entry> <organizer moodCode="EVN" classCode="BATTERY"> < templateId root="[id number]..22.4.1" /> <id nullFlavor="NA" /> <code codeSystem="local" code="CBCD" displayName="CBC W/DIFF" /> < statusCode code="completed" /> <component> <observation moodCode= "EVN" classCode="OBS"> <templateId root="216.840.1.337872.10...4.2 " /> <id nullFlavor="NA" /> <code codeSystem="local" code= "CBCCOM" displayName="COMMENT" /> <statusCode code="completed" /> <effectiveTime value="[id number]" /> <value unit="" xsi:type="PQ " value="REVIEWED" /> <referenceRange> <observationRange> <text /> </observationRange> </referenceRange> </observation> </component> <component> <observation moodCode="EVN" classCode="OBS"> <templateId root= "10.29.840.1.058427.10...4.2" /> <id nullFlavor="NA" /> < code codeSystem="local" code="DB" displayName="DOHLE BODIES" /> < statusCode code="completed" /> <effectiveTime value="" /> <value unit="" xsi:type="PQ" value="NOTED" /> <referenceRange > <observationRange> <text /> </ observationRange> </referenceRange> </observation> </ component> <component> <observation moodCode="EVN" classCode="OBS"> <templateId root="840.1.283226.10...4.2" /> <id nullFlavor="NA" /> <code codeSystem="local" code="GR#" displayName= "GRANULOCYTE #" /> <statusCode code="completed" /> < effectiveTime value="" /> <value unit="k/cumm" xsi:type="PQ " value="16.6" /> <interpretationCode codeSystem="local" code="*" /> <referenceRange> <observationRange> <text>2.0- 9.0</text> </observationRange> </referenceRange> </ observation> </component> <component> <observation moodCode= "EVN" classCode="OBS"> <templateId root="10.29.840.1.704860.10..22.4.2 " /> <id nullFlavor="NA" /> <code codeSystem="local" code="GR& #37;" displayName="GRANULOCYTE %" /> <statusCode code="completed" / > <effectiveTime value="[id number]" /> <value unit="%" xsi:type="PQ" value="91" /> <interpretationCode codeSystem="local" code ="*" /> <referenceRange> <observationRange> < text>50-75</text> </observationRange> </referenceRange> </observation> </component> <component> <observation moodCode="EVN" classCode="OBS"> <templateId root= "2.16.840.1.711201.10..4.2" /> <id nullFlavor="NA" /> < code codeSystem="local" code="LY#" displayName="LYMPHOCYTE #" /> < statusCode code="completed" /> <effectiveTime value="" /> <value unit="k/cumm" xsi:type="PQ" value="0.3" /> < interpretationCode codeSystem="local" code="*" /> <referenceRange> <observationRange> <text>1.0-4.0</text> </ observationRange> </referenceRange> </observation> </ component> <component> <observation moodCode="EVN" classCode="OBS"> <templateId root="216.840.1.491339.10.4.2" /> <id nullFlavor="NA" /> <code codeSystem="local" code="LY%" displayName= "LYMPHOCYTE %" /> <statusCode code="completed" /> < effectiveTime value="[id number]" /> <value unit="%" xsi:type="PQ " value="2" /> <interpretationCode codeSystem="local" code="*" /> <referenceRange> <observationRange> <text>20-30</ text> </observationRange> </referenceRange> </ observation> </component> <component> <observation moodCode= "EVN" classCode="OBS"> <templateId root="216.840.1.006699.10..4.2 " /> <id nullFlavor="NA" /> <code codeSystem="local" code="MCH " displayName="MEAN CELL HGB" /> <statusCode code="completed" /> <effectiveTime value="447848802702" /> <value unit="pg" xsi:type= "PQ" value="27.3" /> <referenceRange> <observationRange> <text>27.0-33.0</text> </observationRange> </ referenceRange> </observation> </component> <component> <observation moodCode="EVN" classCode="OBS"> <templateId root= "10.29.840.1.326313.10..4.2" /> <id nullFlavor="NA" /> < code codeSystem="local" code="MCHC" displayName="MEAN CELL HGB CONCENTRATION" / > <statusCode code="completed" /> <effectiveTime value= "[id number]" /> <value unit="g/dL" xsi:type="PQ" value="34.2" /> <referenceRange> <observationRange> <text>32.0- 37.0</text> </observationRange> </referenceRange> </ observation> </component> <component> <observation moodCode= "EVN" classCode="OBS"> <templateId root="10.29.840.1.619698.10..4.2 " /> <id nullFlavor="NA" /> <code codeSystem="local" code="MCV " displayName="MEAN CELL VOLUME" /> <statusCode code="completed" /> <effectiveTime value="534479412880" /> <value unit="fl" xsi:type ="PQ" value="79.6" /> <interpretationCode codeSystem="local" code="*" / > <referenceRange> <observationRange> <text> 80.0-100.0</text> </observationRange> </referenceRange> </observation> </component> <component> <observation moodCode="EVN" classCode="OBS"> <templateId root= "216.840.1.703643.10..22.4.2" /> <id nullFlavor="NA" /> < code codeSystem="local" code="MO#" displayName="MONOCYTE #" /> < statusCode code="completed" /> <effectiveTime value="689360328845" /> <value unit="k/cumm" xsi:type="PQ" value="1.3" /> < interpretationCode codeSystem="local" code="*" /> <referenceRange> <observationRange> <text>0.1-1.0</text> </ observationRange> </referenceRange> </observation> </ component> <component> <observation moodCode="EVN" classCode="OBS"> <templateId root="2.16.840.1.315257.10..22.4.2" /> <id nullFlavor="NA" /> <code codeSystem="local" code="MO%" displayName= "MONOCYTE %" /> <statusCode code="completed" /> < effectiveTime value="588023745844" /> <value unit="%" xsi:type="PQ " value="7" /> <interpretationCode codeSystem="local" code="*" /> <referenceRange> <observationRange> <text>4-6</text > </observationRange> </referenceRange> </observation > </component> <component> <observation moodCode="EVN" classCode="OBS"> <templateId root="16.840.1.053515.10.20.22.4.2" /> <id nullFlavor="NA" /> <code codeSystem="local" code="RBC" displayName="RED BLOOD CELL" /> <statusCode code="completed" /> <effectiveTime value="558539357859" /> <value unit="m/cumm" xsi:type ="PQ" value="5.54" /> <referenceRange> <observationRange> <text>4.00-6.00</text> </observationRange> </ referenceRange> </observation> </component> <component> <observation moodCode="EVN" classCode="OBS"> <templateId root= "16.840.1.794863...4.2" /> <id nullFlavor="NA" /> < code codeSystem="local" code="RDW" displayName="RED CELL DISTRIBUTION WIDTH" /> <statusCode code="completed" /> <effectiveTime value= "098521710772" /> <value unit="%" xsi:type="PQ" value="13.5" /> <referenceRange> <observationRange> <text>11.0- 15.6</text> </observationRange> </referenceRange> </ observation> </component> <component> <observation moodCode= "EVN" classCode="OBS"> <templateId root="10.29.840.1.854575.10.20.22.4.2 " /> <id nullFlavor="NA" /> <code codeSystem="local" code="WBC " displayName="WHITE BLOOD CELL" /> <statusCode code="completed" /> <effectiveTime value="181186335902" /> <value unit="k/cumm" xsi: type="PQ" value="18.2" /> <interpretationCode codeSystem="local" code= "*" /> <referenceRange> <observationRange> < text>5.0-10.0</text> </observationRange> </referenceRange> </observation> </component> <component> <observation moodCode="EVN" classCode="OBS"> <templateId root= "216.840.1.292133.10...4.2" /> <id nullFlavor="NA" /> < code codeSystem="local" code="HGBT" displayName="HEMOGLOBIN" /> < statusCode code="completed" /> <effectiveTime value="588158850477" /> <value unit="gm/dL" xsi:type="PQ" value="15.1" /> < referenceRange> <observationRange> <text>14.0-18.0</text > </observationRange> </referenceRange> </observation > </component> <component> <observation moodCode="EVN" classCode="OBS"> <templateId root="10.29.840.1.660157.10..4.2" /> <id nullFlavor="NA" /> <code codeSystem="local" code="HCTT" displayName="HEMATOCRIT" /> <statusCode code="completed" /> < effectiveTime value="005924064346" /> <value unit="%" xsi:type="PQ " value="44.1" /> <referenceRange> <observationRange> <text>40.0-54.0</text> </observationRange> </ referenceRange> </observation> </component> <component> <observation moodCode="EVN" classCode="OBS"> <templateId root= "16.840.1.269557.10.20.22.4.2" /> <id nullFlavor="NA" /> < code codeSystem="local" code="PLT" displayName="PLATELET COUNT" /> < statusCode code="completed" /> <effectiveTime value="143673138568" /> <value unit="k/cumm" xsi:type="PQ" value="102" /> < interpretationCode codeSystem="local" code="*" /> <referenceRange> <observationRange> <text>150-400</text> </ observationRange> </referenceRange> </observation> </ component> </organizer> </entry> <entry> <organizer moodCode="EVN" classCode="BATTERY"> <templateId root="216.840.1.604842.10.20.22.4.1" /> <id nullFlavor="NA" /> <code codeSystem="local" code="ALC" displayName ="ALCOHOL (ETHANOL) SERUM" /> <statusCode code="completed" /> < component> <observation moodCode="EVN" classCode="OBS"> < templateId root="216.840.1.731360.10.20.22.4.2" /> <id nullFlavor="NA " /> <code codeSystem="local" code="ALC" displayName="ALCOHOL (ETHANOL ) SERUM" /> <statusCode code="completed" /> <effectiveTime value="800635971481" /> <value unit="mg/dL" xsi:type="PQ" value="< 10" /> <referenceRange> <observationRange> < text> < 10</text> </observationRange> </referenceRange> </observation> </component> </organizer> </entry> <entry> < organizer moodCode="EVN" classCode="BATTERY"> <templateId root= "216.840.1.676175.10.20.22.4.1" /> <id nullFlavor="NA" /> <code codeSystem="local" code="iCHEM8" displayName="CHEM/HEM PROFILE-BEDSIDE" /> <statusCode code="completed" /> <component> <observation moodCode= "EVN" classCode="OBS"> <templateId root="16.840.1.131894.07.02.22.4.2 " /> <id nullFlavor="NA" /> <code codeSystem="local" code="K" displayName="POTASSIUM" /> <statusCode code="completed" /> < effectiveTime value="131739005257" /> <value unit="mmol/L" xsi:type="PQ " value="3.5" /> <referenceRange> <observationRange> <text>3.5-5.3</text> </observationRange> </ referenceRange> </observation> </component> <component> <observation moodCode="EVN" classCode="OBS"> <templateId root= "10.29.840.1.190504.07.02.22.4.2" /> <id nullFlavor="NA" /> < code codeSystem="local" code="CMETHOD" displayName="METHOD" /> < statusCode code="completed" /> <effectiveTime value="029798735409" /> <value unit="" xsi:type="PQ" value="Bedside" /> < referenceRange> <observationRange> <text /> < /observationRange> </referenceRange> </observation> </ component> <component> <observation moodCode="EVN" classCode="OBS"> <templateId root="16.840.1.435986.07.02.22.4.2" /> <id nullFlavor="NA" /> <code codeSystem="local" code="GAP" displayName= "ANION GAP" /> <statusCode code="completed" /> <effectiveTime value="344137565863" /> <value unit="mmol/L" xsi:type="PQ" value="19" / > <referenceRange> <observationRange> <text>10- 20</text> </observationRange> </referenceRange> </ observation> </component> <component> <observation moodCode= "EVN" classCode="OBS"> <templateId root="10.29.840.1.369040.10..4.2 " /> <id nullFlavor="NA" /> <code codeSystem="local" code= "HMETHOD" displayName="METHOD" /> <statusCode code="completed" /> <effectiveTime value="648852250995" /> <value unit="" xsi:type="PQ " value="Bedside" /> <referenceRange> <observationRange> <text /> </observationRange> </referenceRange> </observation> </component> <component> <observation moodCode="EVN" classCode="OBS"> <templateId root= "840.1.351200.07.02.22.4.2" /> <id nullFlavor="NA" /> < code codeSystem="local" code="GLU" displayName="GLUCOSE" /> < statusCode code="completed" /> <effectiveTime value="256705629182" /> <value unit="mg/dL" xsi:type="PQ" value="119" /> < interpretationCode codeSystem="local" code="*" /> <referenceRange> <observationRange> <text>70-99</text> </ observationRange> </referenceRange> </observation> </ component> <component> <observation moodCode="EVN" classCode="OBS"> <templateId root="10.29.840.1.068944.07.02.22.4.2" /> <id nullFlavor="NA" /> <code codeSystem="local" code="BUN" displayName= "BLOOD UREA NITROGEN" /> <statusCode code="completed" /> < effectiveTime value="253082991160" /> <value unit="mg/dL" xsi:type="PQ " value="40" /> <interpretationCode codeSystem="local" code="*" /> <referenceRange> <observationRange> <text>7-20</ text> </observationRange> </referenceRange> </ observation> </component> <component> <observation moodCode= "EVN" classCode="OBS"> <templateId root="216.840.1.645111.10.20.22.4.2 " /> <id nullFlavor="NA" /> <code codeSystem="local" code= "CREAT" displayName="CREATININE" /> <statusCode code="completed" /> <effectiveTime value="958335712330" /> <value unit="mg/dL" xsi: type="PQ" value="1.5" /> <interpretationCode codeSystem="local" code="* " /> <referenceRange> <observationRange> <text> 0.7-1.3</text> </observationRange> </referenceRange> </observation> </component> <component> <observation moodCode= "EVN" classCode="OBS"> <templateId root="2.16.840.1.764473.10.20.22.4.2 " /> <id nullFlavor="NA" /> <code codeSystem="local" code= "HGBT" displayName="HEMOGLOBIN" /> <statusCode code="completed" /> <effectiveTime value="416958524434" /> <value unit="gm/dL" xsi: type="PQ" value="15.3" /> <referenceRange> <observationRange > <text>14.0-18.0</text> </observationRange> </ referenceRange> </observation> </component> <component> <observation moodCode="EVN" classCode="OBS"> <templateId root= "216.840.1.757932.10.20.22.4.2" /> <id nullFlavor="NA" /> < code codeSystem="local" code="HCTT" displayName="HEMATOCRIT" /> < statusCode code="completed" /> <effectiveTime value="112084047138" /> <value unit="%" xsi:type="PQ" value="45.0" /> < referenceRange> <observationRange> <text>40.0-54.0</text > </observationRange> </referenceRange> </observation > </component> <component> <observation moodCode="EVN" classCode="OBS"> <templateId root="216.840.1.748285.10..4.2" /> <id nullFlavor="NA" /> <code codeSystem="local" code="NA" displayName="SODIUM" /> <statusCode code="completed" /> < effectiveTime value="151204547675" /> <value unit="mmol/L" xsi:type="PQ " value="131" /> <interpretationCode codeSystem="local" code="*" /> <referenceRange> <observationRange> <text>135-148 </text> </observationRange> </referenceRange> </ observation> </component> <component> <observation moodCode= "EVN" classCode="OBS"> <templateId root="16.840.1.026847.10..4.2 " /> <id nullFlavor="NA" /> <code codeSystem="local" code="CL " displayName="CHLORIDE" /> <statusCode code="completed" /> < effectiveTime value="455700077263" /> <value unit="mmol/L" xsi:type="PQ " value="96" /> <interpretationCode codeSystem="local" code="*" /> <referenceRange> <observationRange> <text>98-110</ text> </observationRange> </referenceRange> </ observation> </component> <component> <observation moodCode= "EVN" classCode="OBS"> <templateId root="216.840.1.456743.10...4.2 " /> <id nullFlavor="NA" /> <code codeSystem="local" code="CO2 " displayName="CARBON DIOXIDE" /> <statusCode code="completed" /> <effectiveTime value="755137784919" /> <value unit="mmol/L" xsi: type="PQ" value="21" /> <referenceRange> <observationRange> <text>21-32</text> </observationRange> </ referenceRange> </observation> </component> <component> <observation moodCode="EVN" classCode="OBS"> <templateId root= "10.29.840.1.577002.10..4.2" /> <id nullFlavor="NA" /> < code codeSystem="local" code="CAION" displayName="CALCIUM IONIZED" /> < statusCode code="completed" /> <effectiveTime value="855880512031" /> <value unit="mg/dL" xsi:type="PQ" value="4.7" /> < referenceRange> <observationRange> <text>4.5-5.3</text> </observationRange> </referenceRange> </observation > </component> </organizer> </entry> <entry> <organizer moodCode= "EVN" classCode="BATTERY"> <templateId root="10.29.840.1.279973.10..22.4.1 " /> <id nullFlavor="NA" /> <code codeSystem="local" code="BC" displayName="BLOOD CULTURE" /> <statusCode code="completed" /> < component> <observation moodCode="EVN" classCode="OBS"> < templateId root="10.29.840.1.777883.10..4.2" /> <id nullFlavor="NA " /> <code codeSystem="local" code="MB" displayName="Microbiology" /> <statusCode code="completed" /> <effectiveTime value= "341560984410" /> <value xsi:type="ST" value="<pre><b>BLOOD CULTURE</b > See BelowIs this a Possible Sepsis/Sepsis patient? YesBLOOD CULTURE(F) Jus Date/Time: 09/28/2016 13:05 Richie Date/ Time: 09/30/2016 07:53SOURCE: BLOODSPEC DESC: PERIPHERALPOSITIVE SMEAR CALLED AT 0654, 09/29/16 BY .[facility] TO . AT PHONE #. AND READ BACK.POSITIVE SMEAR (Abnormal)GRAM NEGATIVE BACILLI (Abnormal)HOURS TO DETECTION9:52Organism # 1 ESCHERICHIA COLICOMMENTS .FOR SUSCEPTIBILITY SEE PREVIOUS REPORT [facility] [place] [address]</pre>" /> <referenceRange > <observationRange> <text /> </ observationRange> </referenceRange> </observation> </ component> </organizer> </entry> <entry> <organizer moodCode="EVN" classCode="BATTERY"> <templateId root="10.29.840.1.969609.07.02.22.4.1" /> <id nullFlavor="NA" /> <code codeSystem="local" code="LACT" displayName="LACTIC ACID" /> <statusCode code="completed" /> < component> <observation moodCode="EVN" classCode="OBS"> < templateId root="216.840.1.160927.10...4.2" /> <id nullFlavor="NA " /> <code codeSystem="local" code="LACT" displayName="LACTIC ACID" /> <statusCode code="completed" /> <effectiveTime value= "088714737985" /> <value unit="mmol/L" xsi:type="PQ" value="2.3" /> <interpretationCode codeSystem="local" code="*" /> < referenceRange> <observationRange> <text>0.5-2.0</text> </observationRange> </referenceRange> </observation > </component> </organizer> </entry> <entry> <organizer moodCode= "EVN" classCode="BATTERY"> <templateId root="2.16.840.1.784420.10.20.22.4.1 " /> <id nullFlavor="NA" /> <code codeSystem="local" code="BC" displayName="BLOOD CULTURE" /> <statusCode code="completed" /> < component> <observation moodCode="EVN" classCode="OBS"> < templateId root="2.16.840.1.717941.10.20.22.4.2" /> <id nullFlavor="NA " /> <code codeSystem="local" code="MB" displayName="Microbiology" /> <statusCode code="completed" /> <effectiveTime value= "038152390612" /> <value xsi:type="ST" value="<pre><b> BLOOD CULTURE</b> See BelowIs this a Possible Sepsis/Sepsis patient? YesBLOOD CULTURE(F) Jus Date/Time: 09/28/2016 13:09 Richie Date/Time: 09/30/2016 07:52SOURCE: BLOODSPEC DESC: PERIPHERALPOSITIVE SMEAR CALLED AT 0113, 09/29/16 BY JOVANNI.RIA TO BROOK LIZAMA AT PHONE #[id number] AND READ BACK.POSITIVE SMEAR (Abnormal)GRAM NEGATIVE BACILLI ( Abnormal)HOURS TO [id number] #1 ESCHERICHIA COLI InterpAMPICILLIN VITEK <=2 SAMPICILLIN/SULBACTAM VITEK <=2 SCEFEPIME VITEK &lt ;=1 SCEFTRIAXONE VITEK <=1 SCIPROFLOXACIN VITEK <=0.25 SGENTAMICIN VITEK <=1 SPIPERACILLIN/TAZOBZCTAM VITEK <=4 STRIMETH/SULFA VITEK &lt ;=[address] [facility] [place] [address]</pre>" / > <referenceRange> <observationRange> <text /> </observationRange> </referenceRange> </observation > </component> </organizer> </entry> <entry> <organizer moodCode= "EVN" classCode="BATTERY"> <templateId root="2.16.840.1.588260.10.20.22.4.1 " /> <id nullFlavor="NA" /> <code codeSystem="local" code="INFLAAG" displayName="INFLUENZA A OIA - INFLUENZA B OIA" /> <statusCode code= "completed" /> <component> <observation moodCode="EVN" classCode= "OBS"> <templateId root="2.16.840.1.648255.10.20.22.4.2" /> < id nullFlavor="NA" /> <code codeSystem="local" code="MB" displayName= "Microbiology" /> <statusCode code="completed" /> < effectiveTime value="975583701926" /> <value xsi:type="ST" value="<pre> <b>INFLUENZA A OIA - INFLUENZA B OIA</b> See BelowINFLUENZA A OIA(F) Jus Date/Time: 09/28/2016 13:58 Richie Date/Time: 09/28/2016 14:54SOURCE: NASOPHARYNGEALSPEC DESC: A negative result does not exclude influenza virus infectionINFLUENZA A OIANEGATIVE FOR INFLUENZA [facility] [facility], [place] [address]Hlk BelowINFLUENZA B OIA(F ) Jus Date/Time: 09/28/2016 13:58 Richie Date/Time: 09/28/2016 14:54SOURCE: NASOPHARYNGEALSPEC DESC: INFLUENZA B OIANEGATIVE FOR INFLUENZA [facility] [place] [address]< /pre>" /> <referenceRange> <observationRange> < text /> </observationRange> </referenceRange> </ observation> </component> </organizer> </entry> <entry> <organizer moodCode="EVN" classCode="BATTERY"> <templateId root= "2.16.840.1.025922.10..22.4.1" /> <id nullFlavor="NA" /> <code codeSystem="local" code="UA" displayName="URINALYSIS, ROUTINE" /> < statusCode code="completed" /> <component> <observation moodCode= "EVN" classCode="OBS"> <templateId root="2.16.840.1.316099.10..22.4.2 " /> <id nullFlavor="NA" /> <code codeSystem="local" code= "LEUESU" displayName="UA LEUKOCYTE ESTERASE DIPSTICK" /> <statusCode code="completed" /> <effectiveTime value="349088138954" /> < value unit="" xsi:type="PQ" value="TRACE" /> <interpretationCode codeSystem="local" code="*" /> <referenceRange> < observationRange> <text>NEGATIVE</text> </ observationRange> </referenceRange> </observation> </ component> <component> <observation moodCode="EVN" classCode="OBS"> <templateId root="2.16.840.1.381955.10..22.4.2" /> <id nullFlavor="NA" /> <code codeSystem="local" code="NITRIU" displayName= "UA NITRITE DIPSTICK" /> <statusCode code="completed" /> < effectiveTime value="" /> <value unit="" xsi:type="PQ" value="POSITIVE" /> <interpretationCode codeSystem="local" code="*" /> <referenceRange> <observationRange> <text> NEGATIVE</text> </observationRange> </referenceRange> </observation> </component> <component> <observation moodCode ="EVN" classCode="OBS"> <templateId root= "10.29.840.1.448335.07.02.22.4.2" /> <id nullFlavor="NA" /> < code codeSystem="local" code="PROTEIU" displayName="UA PROTEIN DIPSTICK" /> <statusCode code="completed" /> <effectiveTime value= "" /> <value unit="" xsi:type="PQ" value="TRACE" /> <interpretationCode codeSystem="local" code="*" /> <referenceRange> <observationRange> <text>NEGATIVE</text> </ observationRange> </referenceRange> </observation> </ component> <component> <observation moodCode="EVN" classCode="OBS"> <templateId root="840.1.681223.07.02.22.4.2" /> <id nullFlavor="NA" /> <code codeSystem="local" code="DGLUU" displayName= "UA GLUCOSE DIPSTICK" /> <statusCode code="completed" /> < effectiveTime value="" /> <value unit="" xsi:type="PQ" value="NEGATIVE" /> <referenceRange> <observationRange> <text>NEGATIVE</text> </observationRange> </ referenceRange> </observation> </component> <component> <observation moodCode="EVN" classCode="OBS"> <templateId root= "10.29.840.1.625127.07.02.224.2" /> <id nullFlavor="NA" /> < code codeSystem="local" code="KETONU" displayName="UA KETONE DIPSTICK" /> <statusCode code="completed" /> <effectiveTime value=" " /> <value unit="" xsi:type="PQ" value="1+" /> < interpretationCode codeSystem="local" code="*" /> <referenceRange> <observationRange> <text>NEGATIVE</text> </ observationRange> </referenceRange> </observation> </ component> <component> <observation moodCode="EVN" classCode="OBS"> <templateId root="216.840.1.318567.07.02.224.2" /> <id nullFlavor="NA" /> <code codeSystem="local" code="UROBILU" displayName= "UA UROBILINOGEN DIPSTICK" /> <statusCode code="completed" /> <effectiveTime value="" /> <value unit="" xsi:type="PQ" value="2+" /> <interpretationCode codeSystem="local" code="*" /> <referenceRange> <observationRange> <text>NORMAL</ text> </observationRange> </referenceRange> </ observation> </component> <component> <observation moodCode= "EVN" classCode="OBS"> <templateId root="16.840.1.872912.07.02.22.4.2 " /> <id nullFlavor="NA" /> <code codeSystem="local" code= "BILU" displayName="UA BILIRUBIN DIPSTICK" /> <statusCode code= "completed" /> <effectiveTime value="" /> <value unit="" xsi:type="PQ" value="POSITIVE" /> <interpretationCode codeSystem="local" code="*" /> <referenceRange> < observationRange> <text>NEGATIVE</text> </ observationRange> </referenceRange> </observation> </ component> <component> <observation moodCode="EVN" classCode="OBS"> <templateId root="10.29.840.1.100512.10.2022.4.2" /> <id nullFlavor="NA" /> <code codeSystem="local" code="SURY" displayName="UA BLOOD DIPSTICK" /> <statusCode code="completed" /> < effectiveTime value="709722486854" /> <value unit="" xsi:type="PQ" value="1+" /> <interpretationCode codeSystem="local" code="*" /> <referenceRange> <observationRange> <text>NEGATIVE</ text> </observationRange> </referenceRange> </ observation> </component> <component> <observation moodCode= "EVN" classCode="OBS"> <templateId root="10.29.840.1.205762.10..4.2 " /> <id nullFlavor="NA" /> <code codeSystem="local" code= "SPGRU" displayName="UA SPECIFIC GRAVITY" /> <statusCode code= "completed" /> <effectiveTime value="964745807031" /> <value unit="" xsi:type="PQ" value="1.029" /> <interpretationCode codeSystem= "local" code="*" /> <referenceRange> <observationRange> <text>1.015-1.025</text> </observationRange> </ referenceRange> </observation> </component> <component> <observation moodCode="EVN" classCode="OBS"> <templateId root= "10.29.840.1.849558.10..4.2" /> <id nullFlavor="NA" /> < code codeSystem="local" code="CHUCK" displayName="UR PH" /> <statusCode code="completed" /> <effectiveTime value="" /> < value unit="" xsi:type="PQ" value="5.0" /> <referenceRange> <observationRange> <text>5.0-7.0</text> </ observationRange> </referenceRange> </observation> </ component> </organizer> </entry> <entry> <organizer moodCode="EVN" classCode="BATTERY"> <templateId root="16.840.1.537197.10..22.4.1" /> <id nullFlavor="NA" /> <code codeSystem="local" code="UAMICRO" displayName="UA MICROSCOPIC" /> <statusCode code="completed" /> < component> <observation moodCode="EVN" classCode="OBS"> < templateId root="16.840.1.737822.10...4.2" /> <id nullFlavor="NA " /> <code codeSystem="local" code="AMORPU" displayName="UA AMORPHOUS SEDIMENT" /> <statusCode code="completed" /> <effectiveTime value="" /> <value unit="" xsi:type="PQ" value="2+" /> <referenceRange> <observationRange> <text /> </observationRange> </referenceRange> </observation> </component> <component> <observation moodCode="EVN" classCode= "OBS"> <templateId root="16.840.1.777541.10...4.2" /> < id nullFlavor="NA" /> <code codeSystem="local" code="BACU" displayName= "UA BACTERIA" /> <statusCode code="completed" /> < effectiveTime value="" /> <value unit="" xsi:type="PQ" value="1+" /> <interpretationCode codeSystem="local" code="*" /> <referenceRange> <observationRange> <text>NEGATIVE</ text> </observationRange> </referenceRange> </ observation> </component> <component> <observation moodCode= "EVN" classCode="OBS"> <templateId root="216.840.1.332215.22.4.2 " /> <id nullFlavor="NA" /> <code codeSystem="local" code= "RBCU" displayName="UA RBC" /> <statusCode code="completed" /> <effectiveTime value="012926034167" /> <value unit="rbc/hpf" xsi:type ="PQ" value="5-10" /> <interpretationCode codeSystem="local" code="*" / > <referenceRange> <observationRange> <text>0 - 3</text> </observationRange> </referenceRange> </ observation> </component> <component> <observation moodCode= "EVN" classCode="OBS"> <templateId root="10.29.840.1.303706.07.02.22.4.2 " /> <id nullFlavor="NA" /> <code codeSystem="local" code= "UAVOL" displayName="UA VOLUME FOR EXAM" /> <statusCode code="completed " /> <effectiveTime value="480955341382" /> <value unit="mL" xsi:type="PQ" value="12.0" /> <referenceRange> < observationRange> <text>(12mL STD)</text> </ observationRange> </referenceRange> </observation> </ component> <component> <observation moodCode="EVN" classCode="OBS"> <templateId root="216.840.1.878235..22.4.2" /> <id nullFlavor="NA" /> <code codeSystem="local" code="WBCU" displayName=" UA WBC" /> <statusCode code="completed" /> <effectiveTime value="291628893439" /> <value unit="wbc/hpf" xsi:type="PQ" value="0-1 " /> <referenceRange> <observationRange> <text> 0 - 5</text> </observationRange> </referenceRange> </ observation> </component> </organizer> </entry> <entry> <organizer moodCode="EVN" classCode="BATTERY"> <templateId root= "216.840.1.183114.10...4.1" /> <id nullFlavor="NA" /> <code codeSystem="local" code="DRUGAB" displayName="UR DRUGS OF ABUSE SCREEN" /> <statusCode code="completed" /> <component> <observation moodCode= "EVN" classCode="OBS"> <templateId root="216.840.1.872503.10..22.4.2 " /> <id nullFlavor="NA" /> <code codeSystem="local" code= "AMPHU" displayName="UR AMPHETAMINES SCREEN" /> <statusCode code= "completed" /> <effectiveTime value="840865280317" /> <value unit="" xsi:type="PQ" value="NEG (<1000 ng/mL)" /> <referenceRange > <observationRange> <text>NEGATIVE</text> </ observationRange> </referenceRange> </observation> </ component> <component> <observation moodCode="EVN" classCode="OBS"> <templateId root="216.840.1.809665.10..22.4.2" /> <id nullFlavor="NA" /> <code codeSystem="local" code="BARBU" displayName= "UR BARBITURATE SCREEN" /> <statusCode code="completed" /> < effectiveTime value="461213307926" /> <value unit="" xsi:type="PQ" value="NEG (< 200 ng/mL)" /> <referenceRange> < observationRange> <text>NEGATIVE</text> </ observationRange> </referenceRange> </observation> </ component> <component> <observation moodCode="EVN" classCode="OBS"> <templateId root="216.840.1.165548.10..4.2" /> <id nullFlavor="NA" /> <code codeSystem="local" code="DAUCOMMENT" displayName="DRUGS OF ABUSE SCREEN COMMENT" /> <statusCode code= "completed" /> <effectiveTime value="" /> <value unit="" xsi:type="PQ" value="" /> <referenceRange> < observationRange> <text /> </observationRange> </referenceRange> </observation> </component> <component> <observation moodCode="EVN" classCode="OBS"> <templateId root= "216.840.1.571976.10.4.2" /> <id nullFlavor="NA" /> < code codeSystem="local" code="OPIU" displayName="UR OPIATES SCREEN" /> <statusCode code="completed" /> <effectiveTime value="818879455766" /> <value unit="" xsi:type="PQ" value="NEG (< 300 ng/mL)" /> <referenceRange> <observationRange> <text>NEGATIVE</ text> </observationRange> </referenceRange> </ observation> </component> <component> <observation moodCode= "EVN" classCode="OBS"> <templateId root="216.840.1.134587.07.02.22.4.2 " /> <id nullFlavor="NA" /> <code codeSystem="local" code= "PCPU" displayName="UR PHENCYCLIDINE (PCP) SCREEN" /> <statusCode code= "completed" /> <effectiveTime value="" /> <value unit="" xsi:type="PQ" value="NEG (< 25 ng/mL)" /> <referenceRange > <observationRange> <text>NEGATIVE</text> </ observationRange> </referenceRange> </observation> </ component> <component> <observation moodCode="EVN" classCode="OBS"> <templateId root="2.16.840.1.458640.10..4.2" /> <id nullFlavor="NA" /> <code codeSystem="local" code="THCU" displayName=" UR CANNABINOIDS (THC) SCREEN" /> <statusCode code="completed" /> <effectiveTime value="" /> <value unit="" xsi:type="PQ " value="NEG (< 50 ng/mL)" /> <referenceRange> < observationRange> <text>NEGATIVE</text> </ observationRange> </referenceRange> </observation> </ component> <component> <observation moodCode="EVN" classCode="OBS"> <templateId root="2.16.840.1.591156.10..4.2" /> <id nullFlavor="NA" /> <code codeSystem="local" code="COCAU" displayName= "UR COCAINE METABOLITE SCREEN" /> <statusCode code="completed" /> <effectiveTime value="" /> <value unit="" xsi:type="PQ " value="NEG (< 300 ng/mL)" /> <referenceRange> < observationRange> <text>NEGATIVE</text> </ observationRange> </referenceRange> </observation> </ component> <component> <observation moodCode="EVN" classCode="OBS"> <templateId root="216.840.1.928793.10..22.4.2" /> <id nullFlavor="NA" /> <code codeSystem="local" code="METHU" displayName= "UR METHADONE SCREEN" /> <statusCode code="completed" /> < effectiveTime value="" /> <value unit="" xsi:type="PQ" value="NEG (< 300 ng/mL)" /> <referenceRange> < observationRange> <text>NEGATIVE</text> </ observationRange> </referenceRange> </observation> </ component> <component> <observation moodCode="EVN" classCode="OBS"> <templateId root="216.840.1.229189...4.2" /> <id nullFlavor="NA" /> <code codeSystem="local" code="BENZU" displayName= "UR BENZODIAZEPINE SCREEN" /> <statusCode code="completed" /> <effectiveTime value="" /> <value unit="" xsi:type="PQ" value="NEG (< 200 ng/mL)" /> <referenceRange> < observationRange> <text>NEGATIVE</text> </ observationRange> </referenceRange> </observation> </ component> </organizer> </entry> <entry> <organizer moodCode="EVN" classCode="BATTERY"> <templateId root="2.16.840.1.217810.10..22.4.1" /> <id nullFlavor="NA" /> <code codeSystem="local" code="CBCWD" displayName="CBC With Platelet and Differential" /> <statusCode code= "completed" /> <component> <observation moodCode="EVN" classCode= "OBS"> <templateId root="216.840.1.561726.10..22.4.2" /> < id nullFlavor="NA" /> <code codeSystem="local" code="ABASR" displayName ="Absolute Basophils" /> <statusCode code="completed" /> < effectiveTime value="" /> <value unit="10*3/uL" xsi:type= "PQ" value="0.03" /> <referenceRange> <observationRange> <text>0.00-0.20</text> </observationRange> </ referenceRange> </observation> </component> <component> <observation moodCode="EVN" classCode="OBS"> <templateId root= "216.840.1.733309...4.2" /> <id nullFlavor="NA" /> < code codeSystem="local" code="AEOSR" displayName="Absolute Eosinophils" /> <statusCode code="completed" /> <effectiveTime value=" " /> <value unit="10*3/uL" xsi:type="PQ" value="0.04" /> < referenceRange> <observationRange> <text>0.00-0.50</text > </observationRange> </referenceRange> </observation > </component> <component> <observation moodCode="EVN" classCode="OBS"> <templateId root="16.840.1.358434.10.20.22.4.2" /> <id nullFlavor="NA" /> <code codeSystem="local" code="ALYMR" displayName="Absolute Lymphocytes" /> <statusCode code="completed" /> <effectiveTime value="" /> <value unit="10*3/uL" xsi:type="PQ" value="1.15" /> <referenceRange> < observationRange> <text>0.80-3.30</text> </ observationRange> </referenceRange> </observation> </ component> <component> <observation moodCode="EVN" classCode="OBS"> <templateId root="216.840.1.236593.10.20.22.4.2" /> <id nullFlavor="NA" /> <code codeSystem="local" code="AMONR" displayName= "Absolute Monocytes" /> <statusCode code="completed" /> < effectiveTime value="885814850084" /> <value unit="10*3/uL" xsi:type= "PQ" value="0.60" /> <referenceRange> <observationRange> <text>0.30-1.00</text> </observationRange> </ referenceRange> </observation> </component> <component> <observation moodCode="EVN" classCode="OBS"> <templateId root= "840.1.231810.07.02.22.4.2" /> <id nullFlavor="NA" /> < code codeSystem="local" code="ASEGR" displayName="Absolute Neutrophils" /> <statusCode code="completed" /> <effectiveTime value="243659290657 " /> <value unit="10*3/uL" xsi:type="PQ" value="4.22" /> < referenceRange> <observationRange> <text>1.90-7.00</text > </observationRange> </referenceRange> </observation > </component> <component> <observation moodCode="EVN" classCode="OBS"> <templateId root="10.29.840.1.772086.1020.4.2" /> <id nullFlavor="NA" /> <code codeSystem="local" code="BASOR" displayName="Basophils" /> <statusCode code="completed" /> < effectiveTime value="717349966963" /> <value unit="%" xsi:type="PQ " value="1" /> <referenceRange> <observationRange> <text>0-2</text> </observationRange> </referenceRange> </observation> </component> <component> <observation moodCode="EVN" classCode="OBS"> <templateId root= "216.840.1.872043.10.22.4.2" /> <id nullFlavor="NA" /> < code codeSystem="local" code="EOSR" displayName="Eosinophils" /> < statusCode code="completed" /> <effectiveTime value="651409968842" /> <value unit="%" xsi:type="PQ" value="1" /> <referenceRange > <observationRange> <text>0-4</text> </ observationRange> </referenceRange> </observation> </ component> <component> <observation moodCode="EVN" classCode="OBS"> <templateId root="216.840.1.290102.10..4.2" /> <id nullFlavor="NA" /> <code codeSystem="local" code="HCT" displayName="HCT " /> <statusCode code="completed" /> <effectiveTime value= "215934122934" /> <value unit="%" xsi:type="PQ" value="42.5" /> <referenceRange> <observationRange> <text>42.0- 52.0</text> </observationRange> </referenceRange> </ observation> </component> <component> <observation moodCode= "EVN" classCode="OBS"> <templateId root="216.840.1.183863.10..22.4.2 " /> <id nullFlavor="NA" /> <code codeSystem="local" code="HGB " displayName="HGB" /> <statusCode code="completed" /> < effectiveTime value="642007038162" /> <value unit="g/dL" xsi:type="PQ" value="14.4" /> <referenceRange> <observationRange> <text>14.0-18.0</text> </observationRange> </ referenceRange> </observation> </component> <component> <observation moodCode="EVN" classCode="OBS"> <templateId root= "2.16.840.1.319715.10..22.4.2" /> <id nullFlavor="NA" /> < code codeSystem="local" code="IMGA" displayName="Immature Granulocytes" /> <statusCode code="completed" /> <effectiveTime value="025438627555 " /> <value unit="%" xsi:type="PQ" value="0.3" /> < referenceRange> <observationRange> <text>0.0-1.0</text> </observationRange> </referenceRange> </observation > </component> <component> <observation moodCode="EVN" classCode="OBS"> <templateId root="2.16.840.1.918590.10..22.4.2" /> <id nullFlavor="NA" /> <code codeSystem="local" code="LYMPR" displayName="Lymphocytes" /> <statusCode code="completed" /> < effectiveTime value="156027413495" /> <value unit="%" xsi:type="PQ " value="19" /> <interpretationCode codeSystem="local" code="*" /> <referenceRange> <observationRange> <text>20-46</ text> </observationRange> </referenceRange> </ observation> </component> <component> <observation moodCode= "EVN" classCode="OBS"> <templateId root="16.840.1.313225.10.20.22.4.2 " /> <id nullFlavor="NA" /> <code codeSystem="local" code="MCH " displayName="MCH" /> <statusCode code="completed" /> < effectiveTime value="796758994173" /> <value unit="pg" xsi:type="PQ" value="27.9" /> <referenceRange> <observationRange> <text>27.0-32.0</text> </observationRange> </ referenceRange> </observation> </component> <component> <observation moodCode="EVN" classCode="OBS"> <templateId root= "10.29.840.1.896579.10..22.4.2" /> <id nullFlavor="NA" /> < code codeSystem="local" code="MCHC" displayName="MCHC" /> <statusCode code="completed" /> <effectiveTime value="996317931495" /> < value unit="g/dL" xsi:type="PQ" value="33.9" /> <referenceRange> <observationRange> <text>32.0-36.0</text> </ observationRange> </referenceRange> </observation> </ component> <component> <observation moodCode="EVN" classCode="OBS"> <templateId root="10.29.840.1.454589.10.20.22.4.2" /> <id nullFlavor="NA" /> <code codeSystem="local" code="MCV" displayName="MCV " /> <statusCode code="completed" /> <effectiveTime value= "969739590211" /> <value unit="fL" xsi:type="PQ" value="82.4" /> <referenceRange> <observationRange> <text>82.0-99.0< /text> </observationRange> </referenceRange> </ observation> </component> <component> <observation moodCode= "EVN" classCode="OBS"> <templateId root="216.840.1.045120.10.4.2 " /> <id nullFlavor="NA" /> <code codeSystem="local" code= "MONOR" displayName="Monocytes" /> <statusCode code="completed" /> <effectiveTime value="012545313814" /> <value unit="%" xsi: type="PQ" value="10" /> <referenceRange> <observationRange> <text>4-11</text> </observationRange> </ referenceRange> </observation> </component> <component> <observation moodCode="EVN" classCode="OBS"> <templateId root= "10.29.840.1.427759.07.02.22.4.2" /> <id nullFlavor="NA" /> < code codeSystem="local" code="MPV" displayName="MPV" /> <statusCode code="completed" /> <effectiveTime value="594335916958" /> < value unit="fL" xsi:type="PQ" value="9.4" /> <referenceRange> <observationRange> <text>9.4-12.3</text> </ observationRange> </referenceRange> </observation> </ component> <component> <observation moodCode="EVN" classCode="OBS"> <templateId root="10.29.840.1.750092.07.02.22.4.2" /> <id nullFlavor="NA" /> <code codeSystem="local" code="SEGR" displayName= "Neutrophils" /> <statusCode code="completed" /> < effectiveTime value="152909890871" /> <value unit="%" xsi:type="PQ " value="70" /> <referenceRange> <observationRange> <text>51-75</text> </observationRange> </ referenceRange> </observation> </component> <component> <observation moodCode="EVN" classCode="OBS"> <templateId root= "16.840.1.397501.10.22.4.2" /> <id nullFlavor="NA" /> < code codeSystem="local" code="NRBCA" displayName="Nucleated RBC Automated" /> <statusCode code="completed" /> <effectiveTime value= "901897077876" /> <value unit="/100WBC" xsi:type="PQ" value="0.0" /> <referenceRange> <observationRange> <text /> </observationRange> </referenceRange> </observation> </component> <component> <observation moodCode="EVN" classCode= "OBS"> <templateId root="840.1.909743...4.2" /> < id nullFlavor="NA" /> <code codeSystem="local" code="PLT" displayName= "Platelet Count" /> <statusCode code="completed" /> < effectiveTime value="397033127151" /> <value unit="K/uL" xsi:type="PQ" value="179" /> <referenceRange> <observationRange> <text>150-400</text> </observationRange> </ referenceRange> </observation> </component> <component> <observation moodCode="EVN" classCode="OBS"> <templateId root= "840.1.764256.10.2022.4.2" /> <id nullFlavor="NA" /> < code codeSystem="local" code="RBC" displayName="RBC" /> <statusCode code="completed" /> <effectiveTime value="307485629014" /> < value unit="10*6/uL" xsi:type="PQ" value="5.16" /> <referenceRange> <observationRange> <text>4.60-6.20</text> </ observationRange> </referenceRange> </observation> </ component> <component> <observation moodCode="EVN" classCode="OBS"> <templateId root="216.840.1.100306.10.20.22.4.2" /> <id nullFlavor="NA" /> <code codeSystem="local" code="RDW" displayName="RDW " /> <statusCode code="completed" /> <effectiveTime value= "752872390340" /> <value unit="%" xsi:type="PQ" value="15.5" /> <interpretationCode codeSystem="local" code="*" /> < referenceRange> <observationRange> <text>11.5-14.5</text > </observationRange> </referenceRange> </observation > </component> <component> <observation moodCode="EVN" classCode="OBS"> <templateId root="216.840.1.783675.10.20.22.4.2" /> <id nullFlavor="NA" /> <code codeSystem="local" code="WBCIR" displayName="WBC" /> <statusCode code="completed" /> < effectiveTime value="554182263556" /> <value unit="K/uL" xsi:type="PQ" value="6.1" /> <referenceRange> <observationRange> <text>4.8-10.8</text> </observationRange> </ referenceRange> </observation> </component> </organizer> </entry > <entry> <organizer moodCode="EVN" classCode="BATTERY"> <templateId root="10.29.840.1.117692.10..22.4.1" /> <id nullFlavor="NA" /> <code codeSystem="local" code="CMP" displayName="Comprehensive Metabolic Panel (CMP)" /> <statusCode code="completed" /> <component> <observation moodCode="EVN" classCode="OBS"> <templateId root= "840.1.634563.07.02.22.4.2" /> <id nullFlavor="NA" /> < code codeSystem="local" code="ALB" displayName="Albumin" /> < statusCode code="completed" /> <effectiveTime value="824828318189" /> <value unit="g/dL" xsi:type="PQ" value="3.8" /> < referenceRange> <observationRange> <text>3.5-4.8</text> </observationRange> </referenceRange> </observation > </component> <component> <observation moodCode="EVN" classCode="OBS"> <templateId root="10.29.840.1.897763.07.02.22.4.2" /> <id nullFlavor="NA" /> <code codeSystem="local" code="ALP" displayName="Alkaline Phosphatase" /> <statusCode code="completed" /> <effectiveTime value="503635488286" /> <value unit="U/L" xsi: type="PQ" value="75" /> <referenceRange> <observationRange> <text>26-104</text> </observationRange> </ referenceRange> </observation> </component> <component> <observation moodCode="EVN" classCode="OBS"> <templateId root= "10.29.840.1.693603...4.2" /> <id nullFlavor="NA" /> < code codeSystem="local" code="ALT" displayName="ALT (SGPT)" /> < statusCode code="completed" /> <effectiveTime value="803633901112" /> <value unit="U/L" xsi:type="PQ" value="17" /> <referenceRange > <observationRange> <text>17-63</text> </ observationRange> </referenceRange> </observation> </ component> <component> <observation moodCode="EVN" classCode="OBS"> <templateId root="10.29.840.1.174040.10.20.22.4.2" /> <id nullFlavor="NA" /> <code codeSystem="local" code="AGAP" displayName= "Anion Gap" /> <statusCode code="completed" /> <effectiveTime value="758591099136" /> <value unit="mEq/L" xsi:type="PQ" value="11" / > <referenceRange> <observationRange> <text>3- 20</text> </observationRange> </referenceRange> </ observation> </component> <component> <observation moodCode= "EVN" classCode="OBS"> <templateId root="10.29.840.1.074417.10.20.22.4.2 " /> <id nullFlavor="NA" /> <code codeSystem="local" code="AST " displayName="AST (SGOT)" /> <statusCode code="completed" /> <effectiveTime value="999625498076" /> <value unit="U/L" xsi:type="PQ" value="22" /> <referenceRange> <observationRange> <text>15-41</text> </observationRange> </referenceRange > </observation> </component> <component> <observation moodCode="EVN" classCode="OBS"> <templateId root= "840.1.482104.10..22.4.2" /> <id nullFlavor="NA" /> < code codeSystem="local" code="BILIT" displayName="Bilirubin Total" /> < statusCode code="completed" /> <effectiveTime value="839719139426" /> <value unit="mg/dL" xsi:type="PQ" value="0.8" /> < referenceRange> <observationRange> <text>0.2-1.2</text> </observationRange> </referenceRange> </observation > </component> <component> <observation moodCode="EVN" classCode="OBS"> <templateId root="216.840.1.357351.07.02.22.4.2" /> <id nullFlavor="NA" /> <code codeSystem="local" code="BUN" displayName="BUN" /> <statusCode code="completed" /> < effectiveTime value="459549979118" /> <value unit="mg/dL" xsi:type="PQ " value="13" /> <referenceRange> <observationRange> <text>4-20</text> </observationRange> </referenceRange > </observation> </component> <component> <observation moodCode="EVN" classCode="OBS"> <templateId root= "216.840.1.539046.22.4.2" /> <id nullFlavor="NA" /> < code codeSystem="local" code="CA" displayName="Calcium" /> <statusCode code="completed" /> <effectiveTime value="303895219892" /> < value unit="mg/dL" xsi:type="PQ" value="9.5" /> <referenceRange> <observationRange> <text>8.6-10.0</text> </ observationRange> </referenceRange> </observation> </ component> <component> <observation moodCode="EVN" classCode="OBS"> <templateId root="216.840.1.584968.10..22.4.2" /> <id nullFlavor="NA" /> <code codeSystem="local" code="CL" displayName= "Chloride" /> <statusCode code="completed" /> <effectiveTime value="790759000734" /> <value unit="mEq/L" xsi:type="PQ" value="104" / > <referenceRange> <observationRange> <text>99- 109</text> </observationRange> </referenceRange> </ observation> </component> <component> <observation moodCode= "EVN" classCode="OBS"> <templateId root="216.840.1.449809.10..4.2 " /> <id nullFlavor="NA" /> <code codeSystem="local" code="CO2 " displayName="CO2" /> <statusCode code="completed" /> < effectiveTime value="" /> <value unit="mEq/L" xsi:type="PQ " value="23" /> <referenceRange> <observationRange> <text>22-32</text> </observationRange> </ referenceRange> </observation> </component> <component> <observation moodCode="EVN" classCode="OBS"> <templateId root= "16.840.1.307844.10..22.4.2" /> <id nullFlavor="NA" /> < code codeSystem="local" code="CREAT" displayName="Creatinine" /> < statusCode code="completed" /> <effectiveTime value="340239652624" /> <value unit="mg/dL" xsi:type="PQ" value="1.11" /> < referenceRange> <observationRange> <text>0.64-1.27</text > </observationRange> </referenceRange> </observation > </component> <component> <observation moodCode="EVN" classCode="OBS"> <templateId root="16.840.1.920699.10.22.4.2" /> <id nullFlavor="NA" /> <code codeSystem="local" code="GLOB" displayName="Globulin" /> <statusCode code="completed" /> < effectiveTime value="878332838024" /> <value unit="g/dL" xsi:type="PQ" value="2.9" /> <referenceRange> <observationRange> <text>1.9-4.3</text> </observationRange> </ referenceRange> </observation> </component> <component> <observation moodCode="EVN" classCode="OBS"> <templateId root= "10.29.840.1.294623.07.02.22.4.2" /> <id nullFlavor="NA" /> < code codeSystem="local" code="GLU" displayName="Glucose" /> < statusCode code="completed" /> <effectiveTime value="246143121613" /> <value unit="mg/dL" xsi:type="PQ" value="98" /> < referenceRange> <observationRange> <text>70-100</text> </observationRange> </referenceRange> </observation> </component> <component> <observation moodCode="EVN" classCode ="OBS"> <templateId root="10.29.840.1.481908.10..4.2" /> < id nullFlavor="NA" /> <code codeSystem="local" code="K" displayName= "Potassium" /> <statusCode code="completed" /> <effectiveTime value="226587373906" /> <value unit="mEq/L" xsi:type="PQ" value="3.5" / > <interpretationCode codeSystem="local" code="*" /> < referenceRange> <observationRange> <text>3.6-5.1</text> </observationRange> </referenceRange> </observation > </component> <component> <observation moodCode="EVN" classCode="OBS"> <templateId root="16.840.1.309386.07.02.22.4.2" /> <id nullFlavor="NA" /> <code codeSystem="local" code="TP" displayName="Protein" /> <statusCode code="completed" /> < effectiveTime value="742737390456" /> <value unit="g/dL" xsi:type="PQ" value="6.7" /> <referenceRange> <observationRange> <text>6.1-7.9</text> </observationRange> </ referenceRange> </observation> </component> <component> <observation moodCode="EVN" classCode="OBS"> <templateId root= "16.840.1.726156.07.02.22.4.2" /> <id nullFlavor="NA" /> < code codeSystem="local" code="NA" displayName="Sodium" /> <statusCode code="completed" /> <effectiveTime value="025383226729" /> < value unit="mEq/L" xsi:type="PQ" value="138" /> <referenceRange> <observationRange> <text>136-144</text> </ observationRange> </referenceRange> </observation> </ component> </organizer> </entry> <entry> <organizer moodCode="EVN" classCode="BATTERY"> <templateId root="216.840.1.162560.07.02.22.4.1" /> <id nullFlavor="NA" /> <code codeSystem="local" code="GFR" displayName ="eGFR" /> <statusCode code="completed" /> <component> < observation moodCode="EVN" classCode="OBS"> <templateId root= "16.840.1.441683.07.02.22.4.2" /> <id nullFlavor="NA" /> < code codeSystem="local" code="GFR" displayName="eGFR" /> <statusCode code="completed" /> <effectiveTime value="569136724136" /> < value unit="mL/min" xsi:type="PQ" value=">60" /> <referenceRange> <observationRange> <text>>60</text> </ observationRange> </referenceRange> </observation> </ component> </organizer> </entry> <entry> <organizer moodCode="EVN" classCode="BATTERY"> <templateId root="10.29.840.1.053471.07.02.22.4.1" /> <id nullFlavor="NA" /> <code codeSystem="local" code="TROP" displayName="Troponin" /> <statusCode code="completed" /> <component> <observation moodCode="EVN" classCode="OBS"> <templateId root= "16.840.1.566468.07.02.22.4.2" /> <id nullFlavor="NA" /> < code codeSystem="local" code="TROP" displayName="Troponin" /> < statusCode code="completed" /> <effectiveTime value="022979652061" /> <value unit="ng/mL" xsi:type="PQ" value="<0.05" /> < referenceRange> <observationRange> <text><0.06</text > </observationRange> </referenceRange> </observation > </component> </organizer> </entry> <entry> <organizer moodCode= "EVN" classCode="BATTERY"> <templateId root="2.16.840.1.780739.10..22.4.1 " /> <id nullFlavor="NA" /> <code codeSystem="local" code="UA" displayName="Urinalysis with reflex microscopic" /> <statusCode code= "completed" /> <component> <observation moodCode="EVN" classCode= "OBS"> <templateId root="2.16.840.1.372727.10...4.2" /> < id nullFlavor="NA" /> <code codeSystem="local" code="UAPP" displayName= "Appearance" /> <statusCode code="completed" /> < effectiveTime value="" /> <value unit="NA" xsi:type="PQ" value="Cloudy" /> <interpretationCode codeSystem="local" code="*" /> <referenceRange> <observationRange> <text /> </observationRange> </referenceRange> </observation> </component> <component> <observation moodCode="EVN" classCode= "OBS"> <templateId root="2.16.840.1.382220.10...4.2" /> < id nullFlavor="NA" /> <code codeSystem="local" code="UBIL" displayName= "Bilirubin" /> <statusCode code="completed" /> <effectiveTime value="" /> <value unit="NA" xsi:type="PQ" value="Negative " /> <referenceRange> <observationRange> <text> Negative</text> </observationRange> </referenceRange> </observation> </component> <component> <observation moodCode ="EVN" classCode="OBS"> <templateId root= "16.840.1.669704.10..4.2" /> <id nullFlavor="NA" /> < code codeSystem="local" code="UBLD" displayName="Blood" /> <statusCode code="completed" /> <effectiveTime value="" /> < value unit="NA" xsi:type="PQ" value="Negative" /> <referenceRange> <observationRange> <text>Negative</text> </ observationRange> </referenceRange> </observation> </ component> <component> <observation moodCode="EVN" classCode="OBS"> <templateId root="16.840.1.976428.07.02.22.4.2" /> <id nullFlavor="NA" /> <code codeSystem="local" code="UCOLR" displayName= "Color" /> <statusCode code="completed" /> <effectiveTime value="" /> <value unit="NA" xsi:type="PQ" value="Yellow" / > <referenceRange> <observationRange> <text /> </observationRange> </referenceRange> </observation > </component> <component> <observation moodCode="EVN" classCode="OBS"> <templateId root="10.29.840.1.973553.07.02.22.4.2" /> <id nullFlavor="NA" /> <code codeSystem="local" code="UGLU" displayName="Glucose, Urine" /> <statusCode code="completed" /> <effectiveTime value="" /> <value unit="" xsi:type="PQ" value="Negative" /> <referenceRange> <observationRange> <text>Negative</text> </observationRange> </ referenceRange> </observation> </component> <component> <observation moodCode="EVN" classCode="OBS"> <templateId root= "16.840.1.407025.10..22.4.2" /> <id nullFlavor="NA" /> < code codeSystem="local" code="UKET" displayName="Ketones" /> < statusCode code="completed" /> <effectiveTime value="" /> <value unit="" xsi:type="PQ" value="Pos 1+" /> < interpretationCode codeSystem="local" code="*" /> <referenceRange> <observationRange> <text>Negative</text> </ observationRange> </referenceRange> </observation> </ component> <component> <observation moodCode="EVN" classCode="OBS"> <templateId root="10.29.840.1.619368.07.02.22.4.2" /> <id nullFlavor="NA" /> <code codeSystem="local" code="ULEU" displayName= "Leukocyte Esterase" /> <statusCode code="completed" /> < effectiveTime value="" /> <value unit="NA" xsi:type="PQ" value="Trace" /> <interpretationCode codeSystem="local" code="*" /> <referenceRange> <observationRange> <text> Negative</text> </observationRange> </referenceRange> </observation> </component> <component> <observation moodCode ="EVN" classCode="OBS"> <templateId root= "10.29.840.1.563367.10.22.4.2" /> <id nullFlavor="NA" /> < code codeSystem="local" code="UNIT" displayName="Nitrites" /> < statusCode code="completed" /> <effectiveTime value="" /> <value unit="NA" xsi:type="PQ" value="Negative" /> < referenceRange> <observationRange> <text>Negative</text > </observationRange> </referenceRange> </observation > </component> <component> <observation moodCode="EVN" classCode="OBS"> <templateId root="10.29.840.1.650970.10.22.4.2" /> <id nullFlavor="NA" /> <code codeSystem="local" code="UPH" displayName="pH" /> <statusCode code="completed" /> < effectiveTime value="045244844464" /> <value unit="NA" xsi:type="PQ" value="5.0" /> <referenceRange> <observationRange> <text>5.0-8.0</text> </observationRange> </ referenceRange> </observation> </component> <component> <observation moodCode="EVN" classCode="OBS"> <templateId root= "840.1.112280.10..4.2" /> <id nullFlavor="NA" /> < code codeSystem="local" code="UPRO" displayName="Protein" /> < statusCode code="completed" /> <effectiveTime value="[id number]" /> <value unit="NA" xsi:type="PQ" value="Pos 1+" /> < interpretationCode codeSystem="local" code="*" /> <referenceRange> <observationRange> <text>Negative</text> </ observationRange> </referenceRange> </observation> </ component> <component> <observation moodCode="EVN" classCode="OBS"> <templateId root="840.1.690102.10..22.4.2" /> <id nullFlavor="NA" /> <code codeSystem="local" code="USPG" displayName= "Specific [place]" /> <statusCode code="completed" /> < effectiveTime value="455833164999" /> <value unit="NA" xsi:type="PQ" value="1.025" /> <referenceRange> <observationRange> <text>1.003-1.030</text> </observationRange> </ referenceRange> </observation> </component> <component> <observation moodCode="EVN" classCode="OBS"> <templateId root= "2.16.840.1.598250.10..4.2" /> <id nullFlavor="NA" /> < code codeSystem="local" code="UTYP" displayName="UA Collection type" /> <statusCode code="completed" /> <effectiveTime value="405958044149" / > <value unit="NA" xsi:type="PQ" value="Clean Catch" /> < referenceRange> <observationRange> <text /> < /observationRange> </referenceRange> </observation> </ component> <component> <observation moodCode="EVN" classCode="OBS"> <templateId root="216.840.1.521066.10..4.2" /> <id nullFlavor="NA" /> <code codeSystem="local" code="UURO" displayName= "Urobilinogen" /> <statusCode code="completed" /> < effectiveTime value="727255471019" /> <value unit="mg/dL" xsi:type="PQ " value="4.0" /> <referenceRange> <observationRange> <text><1.0</text> </observationRange> </ referenceRange> </observation> </component> </organizer> </entry > <entry> <organizer moodCode="EVN" classCode="BATTERY"> <templateId root="2.16.840.1.404018.07.02.22.4.1" /> <id nullFlavor="NA" /> <code codeSystem="local" code="UMIC" displayName="Urine Microscopic" /> < statusCode code="completed" /> <component> <observation moodCode= "EVN" classCode="OBS"> <templateId root="840.1.269250.07.02.22.4.2 " /> <id nullFlavor="NA" /> <code codeSystem="local" code= "UBAC" displayName="Bacteria" /> <statusCode code="completed" /> <effectiveTime value="" /> <value unit="NA" xsi:type= "PQ" value="Occasional" /> <interpretationCode codeSystem="local" code= "*" /> <referenceRange> <observationRange> < text /> </observationRange> </referenceRange> </ observation> </component> <component> <observation moodCode= "EVN" classCode="OBS"> <templateId root="840.1.211781.07.02.224.2 " /> <id nullFlavor="NA" /> <code codeSystem="local" code= "UCRY1" displayName="Crystals" /> <statusCode code="completed" /> <effectiveTime value="" /> <value unit="NA" xsi:type= "PQ" value="Ca Ox" /> <referenceRange> <observationRange> <text /> </observationRange> </referenceRange> </observation> </component> <component> <observation moodCode="EVN" classCode="OBS"> <templateId root= "840.1.589067.07.02.22.4.2" /> <id nullFlavor="NA" /> < code codeSystem="local" code="UEPI" displayName="Epithelial Cells" /> < statusCode code="completed" /> <effectiveTime value="" /> <value unit="/HPF" xsi:type="PQ" value="2" /> <referenceRange > <observationRange> <text /> </ observationRange> </referenceRange> </observation> </ component> <component> <observation moodCode="EVN" classCode="OBS"> <templateId root="10.29.840.1.206982.07.02.22.4.2" /> <id nullFlavor="NA" /> <code codeSystem="local" code="URBC" displayName= "RBC, Urine" /> <statusCode code="completed" /> < effectiveTime value="" /> <value unit="/HPF" xsi:type="PQ" value="10" /> <interpretationCode codeSystem="local" code="*" /> <referenceRange> <observationRange> <text>0-2</text > </observationRange> </referenceRange> </observation > </component> <component> <observation moodCode="EVN" classCode="OBS"> <templateId root="10.29.840.1.364262.07.02.22.4.2" /> <id nullFlavor="NA" /> <code codeSystem="local" code="UMUC" displayName="Urine Mucus" /> <statusCode code="completed" /> < effectiveTime value="" /> <value unit="NA" xsi:type="PQ" value="Present" /> <referenceRange> <observationRange> <text /> </observationRange> </referenceRange> </observation> </component> <component> <observation moodCode="EVN" classCode="OBS"> <templateId root= "10.29.840.1.087520.07.02.22.4.2" /> <id nullFlavor="NA" /> < code codeSystem="local" code="UWBC" displayName="WBC, Urine" /> < statusCode code="completed" /> <effectiveTime value="067212828691" /> <value unit="/HPF" xsi:type="PQ" value="20" /> < interpretationCode codeSystem="local" code="*" /> <referenceRange> <observationRange> <text>0-4</text> </ observationRange> </referenceRange> </observation> </ component> </organizer> </entry> <entry> <organizer moodCode="EVN" classCode="BATTERY"> <templateId root="216.840.1.725142.10..22.4.1" /> <id nullFlavor="NA" /> <code codeSystem="local" code="CBCWD" displayName="CBC With Platelet and Differential" /> <statusCode code= "completed" /> <component> <observation moodCode="EVN" classCode= "OBS"> <templateId root="216.840.1.327955.10..22.4.2" /> < id nullFlavor="NA" /> <code codeSystem="local" code="ABASR" displayName ="Absolute Basophils" /> <statusCode code="completed" /> < effectiveTime value="483096250557" /> <value unit="10*3/uL" xsi:type= "PQ" value="0.03" /> <referenceRange> <observationRange> <text>0.00-0.20</text> </observationRange> </ referenceRange> </observation> </component> <component> <observation moodCode="EVN" classCode="OBS"> <templateId root= "216.840.1.855986.10.20.22.4.2" /> <id nullFlavor="NA" /> < code codeSystem="local" code="AEOSR" displayName="Absolute Eosinophils" /> <statusCode code="completed" /> <effectiveTime value="695062321183 " /> <value unit="10*3/uL" xsi:type="PQ" value="0.15" /> < referenceRange> <observationRange> <text>0.00-0.50</text > </observationRange> </referenceRange> </observation > </component> <component> <observation moodCode="EVN" classCode="OBS"> <templateId root="2.16.840.1.478171.10.20.22.4.2" /> <id nullFlavor="NA" /> <code codeSystem="local" code="ALYMR" displayName="Absolute Lymphocytes" /> <statusCode code="completed" /> <effectiveTime value="864603732858" /> <value unit="10*3/uL" xsi:type="PQ" value="1.44" /> <referenceRange> < observationRange> <text>0.80-3.30</text> </ observationRange> </referenceRange> </observation> </ component> <component> <observation moodCode="EVN" classCode="OBS"> <templateId root="2.16.840.1.171230.10.20.22.4.2" /> <id nullFlavor="NA" /> <code codeSystem="local" code="AMONR" displayName= "Absolute Monocytes" /> <statusCode code="completed" /> < effectiveTime value="858540835702" /> <value unit="10*3/uL" xsi:type= "PQ" value="0.75" /> <referenceRange> <observationRange> <text>0.30-1.00</text> </observationRange> </ referenceRange> </observation> </component> <component> <observation moodCode="EVN" classCode="OBS"> <templateId root= "216.840.1.961534.10.20.22.4.2" /> <id nullFlavor="NA" /> < code codeSystem="local" code="ASEGR" displayName="Absolute Neutrophils" /> <statusCode code="completed" /> <effectiveTime value="225119088565 " /> <value unit="10*3/uL" xsi:type="PQ" value="7.74" /> < interpretationCode codeSystem="local" code="*" /> <referenceRange> <observationRange> <text>1.90-7.00</text> </ observationRange> </referenceRange> </observation> </ component> <component> <observation moodCode="EVN" classCode="OBS"> <templateId root="16.840.1.798215.10.22.4.2" /> <id nullFlavor="NA" /> <code codeSystem="local" code="BASOR" displayName= "Basophils" /> <statusCode code="completed" /> <effectiveTime value="" /> <value unit="%" xsi:type="PQ" value="0" /> <referenceRange> <observationRange> <text>0-2< /text> </observationRange> </referenceRange> </ observation> </component> <component> <observation moodCode= "EVN" classCode="OBS"> <templateId root="16.840.1.395766.10.20.22.4.2 " /> <id nullFlavor="NA" /> <code codeSystem="local" code= "EOSR" displayName="Eosinophils" /> <statusCode code="completed" /> <effectiveTime value="231064363041" /> <value unit="%" xsi: type="PQ" value="2" /> <referenceRange> <observationRange> <text>0-4</text> </observationRange> </ referenceRange> </observation> </component> <component> <observation moodCode="EVN" classCode="OBS"> <templateId root= "216.840.1.752065.10..4.2" /> <id nullFlavor="NA" /> < code codeSystem="local" code="HCT" displayName="HCT" /> <statusCode code="completed" /> <effectiveTime value="" /> < value unit="%" xsi:type="PQ" value="46.8" /> <referenceRange> <observationRange> <text>42.0-52.0</text> </ observationRange> </referenceRange> </observation> </ component> <component> <observation moodCode="EVN" classCode="OBS"> <templateId root="10.29.840.1.334228.07.02.22.4.2" /> <id nullFlavor="NA" /> <code codeSystem="local" code="HGB" displayName="HGB " /> <statusCode code="completed" /> <effectiveTime value= "" /> <value unit="g/dL" xsi:type="PQ" value="15.8" /> <referenceRange> <observationRange> <text>14.0- 18.0</text> </observationRange> </referenceRange> </ observation> </component> <component> <observation moodCode= "EVN" classCode="OBS"> <templateId root="10.29.840.1.981777...4.2 " /> <id nullFlavor="NA" /> <code codeSystem="local" code= "IMGA" displayName="Immature Granulocytes" /> <statusCode code= "completed" /> <effectiveTime value="196026231281" /> <value unit="%" xsi:type="PQ" value="0.3" /> <referenceRange> < observationRange> <text>0.0-1.0</text> </ observationRange> </referenceRange> </observation> </ component> <component> <observation moodCode="EVN" classCode="OBS"> <templateId root="216.840.1.693117.10..4.2" /> <id nullFlavor="NA" /> <code codeSystem="local" code="LYMPR" displayName= "Lymphocytes" /> <statusCode code="completed" /> < effectiveTime value="343219970765" /> <value unit="%" xsi:type="PQ " value="14" /> <interpretationCode codeSystem="local" code="*" /> <referenceRange> <observationRange> <text>20-46</ text> </observationRange> </referenceRange> </ observation> </component> <component> <observation moodCode= "EVN" classCode="OBS"> <templateId root="10.29.840.1.643872.10.4.2 " /> <id nullFlavor="NA" /> <code codeSystem="local" code="MCH " displayName="MCH" /> <statusCode code="completed" /> < effectiveTime value="984044696213" /> <value unit="pg" xsi:type="PQ" value="29.0" /> <referenceRange> <observationRange> <text>27.0-32.0</text> </observationRange> </ referenceRange> </observation> </component> <component> <observation moodCode="EVN" classCode="OBS"> <templateId root= "216.840.1.282328.10..4.2" /> <id nullFlavor="NA" /> < code codeSystem="local" code="MCHC" displayName="MCHC" /> <statusCode code="completed" /> <effectiveTime value="793753849995" /> < value unit="g/dL" xsi:type="PQ" value="33.8" /> <referenceRange> <observationRange> <text>32.0-36.0</text> </ observationRange> </referenceRange> </observation> </ component> <component> <observation moodCode="EVN" classCode="OBS"> <templateId root="10.29.840.1.370947.10.20.22.4.2" /> <id nullFlavor="NA" /> <code codeSystem="local" code="MCV" displayName="MCV " /> <statusCode code="completed" /> <effectiveTime value= "568971189808" /> <value unit="fL" xsi:type="PQ" value="86.0" /> <referenceRange> <observationRange> <text>82.0-99.0< /text> </observationRange> </referenceRange> </ observation> </component> <component> <observation moodCode= "EVN" classCode="OBS"> <templateId root="10.29.840.1.113463.10.20.22.4.2 " /> <id nullFlavor="NA" /> <code codeSystem="local" code= "MONOR" displayName="Monocytes" /> <statusCode code="completed" /> <effectiveTime value="085672574646" /> <value unit="%" xsi: type="PQ" value="7" /> <referenceRange> <observationRange> <text>4-11</text> </observationRange> </ referenceRange> </observation> </component> <component> <observation moodCode="EVN" classCode="OBS"> <templateId root= ".1.985771.10.22.4.2" /> <id nullFlavor="NA" /> < code codeSystem="local" code="MPV" displayName="MPV" /> <statusCode code="completed" /> <effectiveTime value="" /> < value unit="fL" xsi:type="PQ" value="10.8" /> <referenceRange> <observationRange> <text>9.4-12.3</text> </ observationRange> </referenceRange> </observation> </ component> <component> <observation moodCode="EVN" classCode="OBS"> <templateId root="10.29.840.1.978041.07.02.22.4.2" /> <id nullFlavor="NA" /> <code codeSystem="local" code="SEGR" displayName= "Neutrophils" /> <statusCode code="completed" /> < effectiveTime value="" /> <value unit="%" xsi:type="PQ " value="76" /> <interpretationCode codeSystem="local" code="*" /> <referenceRange> <observationRange> <text>51-75</ text> </observationRange> </referenceRange> </ observation> </component> <component> <observation moodCode= "EVN" classCode="OBS"> <templateId root="10.29.840.1.085876.10..4.2 " /> <id nullFlavor="NA" /> <code codeSystem="local" code= "NRBCA" displayName="Nucleated RBC Automated" /> <statusCode code= "completed" /> <effectiveTime value="" /> <value unit="/100WBC" xsi:type="PQ" value="0.0" /> <referenceRange> <observationRange> <text /> </observationRange> </referenceRange> </observation> </component> <component> <observation moodCode="EVN" classCode="OBS"> <templateId root= "16.840.1.405040.102022.4.2" /> <id nullFlavor="NA" /> < code codeSystem="local" code="PLT" displayName="Platelet Count" /> < statusCode code="completed" /> <effectiveTime value="" /> <value unit="K/uL" xsi:type="PQ" value="208" /> < referenceRange> <observationRange> <text>150-400</text> </observationRange> </referenceRange> </observation > </component> <component> <observation moodCode="EVN" classCode="OBS"> <templateId root="10.29.840.1.029948.07.02.22.4.2" /> <id nullFlavor="NA" /> <code codeSystem="local" code="RBC" displayName="RBC" /> <statusCode code="completed" /> < effectiveTime value="" /> <value unit="10*6/uL" xsi:type= "PQ" value="5.44" /> <referenceRange> <observationRange> <text>4.60-6.20</text> </observationRange> </ referenceRange> </observation> </component> <component> <observation moodCode="EVN" classCode="OBS"> <templateId root= "10.29.840.1.604589.10.2022.4.2" /> <id nullFlavor="NA" /> < code codeSystem="local" code="RDW" displayName="RDW" /> <statusCode code="completed" /> <effectiveTime value="" /> < value unit="%" xsi:type="PQ" value="13.7" /> <referenceRange> <observationRange> <text>11.5-14.5</text> </ observationRange> </referenceRange> </observation> </ component> <component> <observation moodCode="EVN" classCode="OBS"> <templateId root="10.29.840.1.088614.10.20.22.4.2" /> <id nullFlavor="NA" /> <code codeSystem="local" code="WBCIR" displayName= "WBC" /> <statusCode code="completed" /> <effectiveTime value= "818992068970" /> <value unit="K/uL" xsi:type="PQ" value="10.1" /> <referenceRange> <observationRange> <text>4.8-10.8 </text> </observationRange> </referenceRange> </ observation> </component> </organizer> </entry> <entry> <organizer moodCode="EVN" classCode="BATTERY"> <templateId root= "16.840.1.864643.10..22.4.1" /> <id nullFlavor="NA" /> <code codeSystem="local" code="UA" displayName="Urinalysis with reflex microscopic" / > <statusCode code="completed" /> <component> <observation moodCode="EVN" classCode="OBS"> <templateId root= "16.840.1.616970.10.20.22.4.2" /> <id nullFlavor="NA" /> < code codeSystem="local" code="UAPP" displayName="Appearance" /> < statusCode code="completed" /> <effectiveTime value="205811411984" /> <value unit="NA" xsi:type="PQ" value="Clear" /> < referenceRange> <observationRange> <text /> < /observationRange> </referenceRange> </observation> </ component> <component> <observation moodCode="EVN" classCode="OBS"> <templateId root="10.29.840.1.797279.10.4.2" /> <id nullFlavor="NA" /> <code codeSystem="local" code="UBIL" displayName= "Bilirubin" /> <statusCode code="completed" /> <effectiveTime value="" /> <value unit="NA" xsi:type="PQ" value="Negative " /> <referenceRange> <observationRange> <text> Negative</text> </observationRange> </referenceRange> </observation> </component> <component> <observation moodCode ="EVN" classCode="OBS"> <templateId root= "10.29.840.1.630129.07.02.22.4.2" /> <id nullFlavor="NA" /> < code codeSystem="local" code="UBLD" displayName="Blood" /> <statusCode code="completed" /> <effectiveTime value="" /> < value unit="NA" xsi:type="PQ" value="Pos 2+" /> <interpretationCode codeSystem="local" code="*" /> <referenceRange> < observationRange> <text>Negative</text> </ observationRange> </referenceRange> </observation> </ component> <component> <observation moodCode="EVN" classCode="OBS"> <templateId root="10.29.840.1.603642.1022.4.2" /> <id nullFlavor="NA" /> <code codeSystem="local" code="UCOLR" displayName= "Color" /> <statusCode code="completed" /> <effectiveTime value="" /> <value unit="NA" xsi:type="PQ" value="Colorless " /> <referenceRange> <observationRange> <text /> </observationRange> </referenceRange> </ observation> </component> <component> <observation moodCode= "EVN" classCode="OBS"> <templateId root="10.29.840.1.583305.1022.4.2 " /> <id nullFlavor="NA" /> <code codeSystem="local" code= "UGLU" displayName="Glucose, Urine" /> <statusCode code="completed" /> <effectiveTime value="" /> <value unit="" xsi: type="PQ" value="Negative" /> <referenceRange> < observationRange> <text>Negative</text> </ observationRange> </referenceRange> </observation> </ component> <component> <observation moodCode="EVN" classCode="OBS"> <templateId root="10.29.840.1.134289.10.4.2" /> <id nullFlavor="NA" /> <code codeSystem="local" code="UKET" displayName= "Ketones" /> <statusCode code="completed" /> <effectiveTime value="" /> <value unit="" xsi:type="PQ" value="Negative" / > <referenceRange> <observationRange> <text> Negative</text> </observationRange> </referenceRange> </observation> </component> <component> <observation moodCode ="EVN" classCode="OBS"> <templateId root= "10.29.840.1.689381.10.4.2" /> <id nullFlavor="NA" /> < code codeSystem="local" code="ULEU" displayName="Leukocyte Esterase" /> <statusCode code="completed" /> <effectiveTime value="" / > <value unit="NA" xsi:type="PQ" value="Negative" /> < referenceRange> <observationRange> <text>Negative</text > </observationRange> </referenceRange> </observation > </component> <component> <observation moodCode="EVN" classCode="OBS"> <templateId root="10.29.840.1.120068.10.22.4.2" /> <id nullFlavor="NA" /> <code codeSystem="local" code="UNIT" displayName="Nitrites" /> <statusCode code="completed" /> < effectiveTime value="" /> <value unit="NA" xsi:type="PQ" value="Negative" /> <referenceRange> <observationRange> <text>Negative</text> </observationRange> </ referenceRange> </observation> </component> <component> <observation moodCode="EVN" classCode="OBS"> <templateId root= "10.29.840.1.878510.1022.4.2" /> <id nullFlavor="NA" /> < code codeSystem="local" code="UPH" displayName="pH" /> <statusCode code ="completed" /> <effectiveTime value="" /> <value unit="NA" xsi:type="PQ" value="7.0" /> <referenceRange> < observationRange> <text>5.0-8.0</text> </ observationRange> </referenceRange> </observation> </ component> <component> <observation moodCode="EVN" classCode="OBS"> <templateId root="10.29.840.1.519451.102022.4.2" /> <id nullFlavor="NA" /> <code codeSystem="local" code="UPRO" displayName= "Protein" /> <statusCode code="completed" /> <effectiveTime value="" /> <value unit="NA" xsi:type="PQ" value="Negative " /> <referenceRange> <observationRange> <text> Negative</text> </observationRange> </referenceRange> </observation> </component> <component> <observation moodCode ="EVN" classCode="OBS"> <templateId root= "16.840.1.709501.07.02.22.4.2" /> <id nullFlavor="NA" /> < code codeSystem="local" code="USPG" displayName="Specific [place]" /> < statusCode code="completed" /> <effectiveTime value="034039705388" /> <value unit="NA" xsi:type="PQ" value="<1.003" /> < referenceRange> <observationRange> <text>1.003-1.030</ text> </observationRange> </referenceRange> </ observation> </component> <component> <observation moodCode= "EVN" classCode="OBS"> <templateId root="10.29.840.1.273597.07.02.22.4.2 " /> <id nullFlavor="NA" /> <code codeSystem="local" code= "UTYP" displayName="UA Collection type" /> <statusCode code="completed " /> <effectiveTime value="199561386415" /> <value unit="NA" xsi:type="PQ" value="Clean Catch" /> <referenceRange> < observationRange> <text /> </observationRange> </referenceRange> </observation> </component> <component> <observation moodCode="EVN" classCode="OBS"> <templateId root= "10.29.840.1.372269.07.02.22.4.2" /> <id nullFlavor="NA" /> < code codeSystem="local" code="UURO" displayName="Urobilinogen" /> < statusCode code="completed" /> <effectiveTime value="" /> <value unit="mg/dL" xsi:type="PQ" value="Negative" /> < referenceRange> <observationRange> <text><1.0</text> </observationRange> </referenceRange> </observation > </component> </organizer> </entry> <entry> <organizer moodCode= "EVN" classCode="BATTERY"> <templateId root="16.840.1.966022.10..22.4.1 " /> <id nullFlavor="NA" /> <code codeSystem="local" code="UMIC" displayName="Urine Microscopic" /> <statusCode code="completed" /> < component> <observation moodCode="EVN" classCode="OBS"> < templateId root="16.840.1.386447.10.22.4.2" /> <id nullFlavor="NA " /> <code codeSystem="local" code="UBAC" displayName="Bacteria" /> <statusCode code="completed" /> <effectiveTime value= "" /> <value unit="NA" xsi:type="PQ" value="None Seen" /> <referenceRange> <observationRange> <text /> </observationRange> </referenceRange> </observation> </component> <component> <observation moodCode="EVN" classCode= "OBS"> <templateId root="16.840.1.977022.10.22.4.2" /> < id nullFlavor="NA" /> <code codeSystem="local" code="UEPI" displayName= "Epithelial Cells" /> <statusCode code="completed" /> < effectiveTime value="" /> <value unit="/HPF" xsi:type="PQ" value="None Seen" /> <referenceRange> <observationRange> <text /> </observationRange> </referenceRange> </observation> </component> <component> <observation moodCode="EVN" classCode="OBS"> <templateId root= "16.840.1.048161.10.22.4.2" /> <id nullFlavor="NA" /> < code codeSystem="local" code="URBC" displayName="RBC, Urine" /> < statusCode code="completed" /> <effectiveTime value="" /> <value unit="/HPF" xsi:type="PQ" value="0" /> <referenceRange > <observationRange> <text>0-2</text> </ observationRange> </referenceRange> </observation> </ component> <component> <observation moodCode="EVN" classCode="OBS"> <templateId root="10.29.840.1.982275.07.02.22.4.2" /> <id nullFlavor="NA" /> <code codeSystem="local" code="UWBC" displayName= "WBC, Urine" /> <statusCode code="completed" /> < effectiveTime value="370128671227" /> <value unit="/HPF" xsi:type="PQ" value="0" /> <referenceRange> <observationRange> <text>0-4</text> </observationRange> </referenceRange> </observation> </component> </organizer> </entry> <entry> < organizer moodCode="EVN" classCode="BATTERY"> <templateId root= "10.29.840.1.115223.10.4.1" /> <id nullFlavor="NA" /> <code codeSystem="local" code="CMP" displayName="Comprehensive Metabolic Panel (CMP)" /> <statusCode code="completed" /> <component> <observation moodCode="EVN" classCode="OBS"> <templateId root= "216.840.1.119998.10..22.4.2" /> <id nullFlavor="NA" /> < code codeSystem="local" code="ALB" displayName="Albumin" /> < statusCode code="completed" /> <effectiveTime value="" /> <value unit="g/dL" xsi:type="PQ" value="4.2" /> < referenceRange> <observationRange> <text>3.5-4.8</text> </observationRange> </referenceRange> </observation > </component> <component> <observation moodCode="EVN" classCode="OBS"> <templateId root="16.840.1.924780.10..4.2" /> <id nullFlavor="NA" /> <code codeSystem="local" code="ALP" displayName="Alkaline Phosphatase" /> <statusCode code="completed" /> <effectiveTime value="" /> <value unit="U/L" xsi: type="PQ" value="78" /> <referenceRange> <observationRange> <text>26-104</text> </observationRange> </ referenceRange> </observation> </component> <component> <observation moodCode="EVN" classCode="OBS"> <templateId root= "16.840.1.284403.10...4.2" /> <id nullFlavor="NA" /> < code codeSystem="local" code="ALT" displayName="ALT (SGPT)" /> < statusCode code="completed" /> <effectiveTime value="" /> <value unit="U/L" xsi:type="PQ" value="18" /> <referenceRange > <observationRange> <text>17-63</text> </ observationRange> </referenceRange> </observation> </ component> <component> <observation moodCode="EVN" classCode="OBS"> <templateId root="216.840.1.491469.10..22.4.2" /> <id nullFlavor="NA" /> <code codeSystem="local" code="AGAP" displayName= "Anion Gap" /> <statusCode code="completed" /> <effectiveTime value="" /> <value unit="mEq/L" xsi:type="PQ" value="8" /> <referenceRange> <observationRange> <text>3-20 </text> </observationRange> </referenceRange> </ observation> </component> <component> <observation moodCode= "EVN" classCode="OBS"> <templateId root="10.29.840.1.458662.07.02.22.4.2 " /> <id nullFlavor="NA" /> <code codeSystem="local" code="AST " displayName="AST (SGOT)" /> <statusCode code="completed" /> <effectiveTime value="" /> <value unit="U/L" xsi:type="PQ" value="26" /> <referenceRange> <observationRange> <text>15-41</text> </observationRange> </referenceRange > </observation> </component> <component> <observation moodCode="EVN" classCode="OBS"> <templateId root= "10.29.840.1.410512.10...4.2" /> <id nullFlavor="NA" /> < code codeSystem="local" code="BILIT" displayName="Bilirubin Total" /> < statusCode code="completed" /> <effectiveTime value="246452121649" /> <value unit="mg/dL" xsi:type="PQ" value="1.0" /> < referenceRange> <observationRange> <text>0.2-1.2</text> </observationRange> </referenceRange> </observation > </component> <component> <observation moodCode="EVN" classCode="OBS"> <templateId root="10.29.840.1.003609.1022.4.2" /> <id nullFlavor="NA" /> <code codeSystem="local" code="BUN" displayName="BUN" /> <statusCode code="completed" /> < effectiveTime value="219645202350" /> <value unit="mg/dL" xsi:type="PQ " value="14" /> <referenceRange> <observationRange> <text>4-20</text> </observationRange> </referenceRange > </observation> </component> <component> <observation moodCode="EVN" classCode="OBS"> <templateId root= "10.29.840.1.300141.07.02.22.4.2" /> <id nullFlavor="NA" /> < code codeSystem="local" code="CA" displayName="Calcium" /> <statusCode code="completed" /> <effectiveTime value="712967017193" /> < value unit="mg/dL" xsi:type="PQ" value="9.7" /> <referenceRange> <observationRange> <text>8.6-10.0</text> </ observationRange> </referenceRange> </observation> </ component> <component> <observation moodCode="EVN" classCode="OBS"> <templateId root="10.29.840.1.417340..2022.4.2" /> <id nullFlavor="NA" /> <code codeSystem="local" code="CL" displayName= "Chloride" /> <statusCode code="completed" /> <effectiveTime value="" /> <value unit="mEq/L" xsi:type="PQ" value="98" / > <interpretationCode codeSystem="local" code="*" /> < referenceRange> <observationRange> <text>99-109</text> </observationRange> </referenceRange> </observation> </component> <component> <observation moodCode="EVN" classCode ="OBS"> <templateId root="10.29.840.1.999414.10.20.22.4.2" /> < id nullFlavor="NA" /> <code codeSystem="local" code="CO2" displayName= "CO2" /> <statusCode code="completed" /> <effectiveTime value= "694679714457" /> <value unit="mEq/L" xsi:type="PQ" value="29" /> <referenceRange> <observationRange> <text>22-32</ text> </observationRange> </referenceRange> </ observation> </component> <component> <observation moodCode= "EVN" classCode="OBS"> <templateId root="10.29.840.1.359289.10..22.4.2 " /> <id nullFlavor="NA" /> <code codeSystem="local" code= "CREAT" displayName="Creatinine" /> <statusCode code="completed" /> <effectiveTime value="585527118246" /> <value unit="mg/dL" xsi: type="PQ" value="0.96" /> <referenceRange> <observationRange > <text>0.64-1.27</text> </observationRange> </ referenceRange> </observation> </component> <component> <observation moodCode="EVN" classCode="OBS"> <templateId root= "10.29.840.1.129046.07.02.22.4.2" /> <id nullFlavor="NA" /> < code codeSystem="local" code="GLOB" displayName="Globulin" /> < statusCode code="completed" /> <effectiveTime value="" /> <value unit="g/dL" xsi:type="PQ" value="3.0" /> < referenceRange> <observationRange> <text>1.9-4.3</text> </observationRange> </referenceRange> </observation > </component> <component> <observation moodCode="EVN" classCode="OBS"> <templateId root="216.840.1.490260.07.02.22.4.2" /> <id nullFlavor="NA" /> <code codeSystem="local" code="GLU" displayName="Glucose" /> <statusCode code="completed" /> < effectiveTime value="" /> <value unit="mg/dL" xsi:type="PQ " value="120" /> <interpretationCode codeSystem="local" code="*" /> <referenceRange> <observationRange> <text>70-100< /text> </observationRange> </referenceRange> </ observation> </component> <component> <observation moodCode= "EVN" classCode="OBS"> <templateId root="216.840.1.513043.07.02.22.4.2 " /> <id nullFlavor="NA" /> <code codeSystem="local" code="K" displayName="Potassium" /> <statusCode code="completed" /> < effectiveTime value="740061673063" /> <value unit="mEq/L" xsi:type="PQ " value="3.0" /> <interpretationCode codeSystem="local" code="*" /> <referenceRange> <observationRange> <text>3.6-5.1 </text> </observationRange> </referenceRange> </ observation> </component> <component> <observation moodCode= "EVN" classCode="OBS"> <templateId root="16.840.1.242163.07.02.22.4.2 " /> <id nullFlavor="NA" /> <code codeSystem="local" code="TP " displayName="Protein" /> <statusCode code="completed" /> < effectiveTime value="" /> <value unit="g/dL" xsi:type="PQ" value="7.2" /> <referenceRange> <observationRange> <text>6.1-7.9</text> </observationRange> </ referenceRange> </observation> </component> <component> <observation moodCode="EVN" classCode="OBS"> <templateId root= "10.29.840.1.579056.07.02.22.4.2" /> <id nullFlavor="NA" /> < code codeSystem="local" code="NA" displayName="Sodium" /> <statusCode code="completed" /> <effectiveTime value="006793345453" /> < value unit="mEq/L" xsi:type="PQ" value="135" /> <interpretationCode codeSystem="local" code="*" /> <referenceRange> < observationRange> <text>136-144</text> </ observationRange> </referenceRange> </observation> </ component> </organizer> </entry> <entry> <organizer moodCode="EVN" classCode="BATTERY"> <templateId root="16.840.1.477758.07.02.22.4.1" /> <id nullFlavor="NA" /> <code codeSystem="local" code="LACID" displayName="Lactic Acid Venous" /> <statusCode code="completed" /> < component> <observation moodCode="EVN" classCode="OBS"> < templateId root="2.16.840.1.211587.10..22.4.2" /> <id nullFlavor="NA " /> <code codeSystem="local" code="LACID" displayName="Lactic Acid Venous" /> <statusCode code="completed" /> <effectiveTime value="063287897638" /> <value unit="mEq/L" xsi:type="PQ" value="1.1" / > <referenceRange> <observationRange> <text>0.5 -2.0</text> </observationRange> </referenceRange> </ observation> </component> </organizer> </entry> <entry> <organizer moodCode="EVN" classCode="BATTERY"> <templateId root= "2.16.840.1.085980.10..22.4.1" /> <id nullFlavor="NA" /> <code codeSystem="local" code="GFR" displayName="eGFR" /> <statusCode code= "completed" /> <component> <observation moodCode="EVN" classCode= "OBS"> <templateId root="2.16.840.1.347887.10.20.22.4.2" /> < id nullFlavor="NA" /> <code codeSystem="local" code="GFR" displayName= "eGFR" /> <statusCode code="completed" /> <effectiveTime value ="933035443767" /> <value unit="mL/min" xsi:type="PQ" value=">60" / > <referenceRange> <observationRange> <text>&gt ;60</text> </observationRange> </referenceRange> </ observation> </component> </organizer> </entry> <entry> <organizer moodCode="EVN" classCode="BATTERY"> <templateId root= "2.16.840.1.378250.10.20.22.4.1" /> <id nullFlavor="NA" /> <code codeSystem="local" code="MG" displayName="Magnesium" /> <statusCode code= "completed" /> <component> <observation moodCode="EVN" classCode= "OBS"> <templateId root="2.16.840.1.080317.10.20.22.4.2" /> < id nullFlavor="NA" /> <code codeSystem="local" code="MG" displayName= "Magnesium" /> <statusCode code="completed" /> <effectiveTime value="715120223993" /> <value unit="mg/dL" xsi:type="PQ" value="1.9" / > <referenceRange> <observationRange> <text>1.8 -2.5</text> </observationRange> </referenceRange> </ observation> </component> </organizer> </entry></section> Encounters ACCT No. Visit Date/Time Discharge Status Pt. Type Provider Facility Loc./Unit Complaint [id number] 06/17/2017 13:00:00 06/17/2017 14:51:00 DIS Emergency Tomas Valenzuela DO [facility] W.EDS [id number] 09/28/2016 10:28:00 09/28/2016 17:45:00 DIS Emergency Azul FRAZIER, Vishal Martinez [facility] W.LEO [id number] 10/03/2011 13:27:00 Inpatient [id number] 08/05/2017 00:26:00 08/05/2017 23:59:59 CLS Emergency Carroll Jacob [facility] ED Head pain [id number] 05/07/2017 13:33:00 05/07/2017 23:59:59 CLS Emergency Bass Denise [facility] ab[facility] [id number] 03/23/2017 15:49:00 03/29/2017 14:50:00 DIS Inpatient Morse Donna [facility] on [place] VCHF F8SE ams, leukocytosis [id number] 05/08/2017 05:18:14 Document Registration [id number] 03/30/2017 05:16:25 Document Registration [id number] 03/25/2017 05:16:24 Document Registration [id number] 03/24/2017 05:15:39 Document Registration
--- OUTSIDE RECORDS SUMMARY | 2017-12-13 13:07 | XMS REPORT ---
Author Author Lui Renee [facility] Address [address] [place] [address] Care Team Providers Care Fuel Assembler Name Role Phone Lui Renee Unavailable PROBLEMS Type Condition ICD9-CM Code VQD89-IJ Code Onset Dates Condition Status SNOMED Code Problem Other specified counseling V65.49 Inactive 709249611 Problem Other and unspecified angina pectoris 413.9 Inactive 313063191 Problem Hypertrophy (benign) of prostate without urinary obstruction and other lower urinary tract symptoms [LUTS] 600.00 Inactive 035227739 Problem Special screening for malignant neoplasms, colon V76.51 Inactive 255859570 Problem Nocturia 788.43 Inactive 135132978 Problem Vaccination not carried out because of patient refusal V64.06 Inactive 235439789817 Problem Personal history of tobacco use, presenting hazards to health V15.82 Inactive 3686545396299 Problem Hypertension I10 Active 80366648 Problem Hyperlipemia E78.5 Active 94342202 Problem Obesity E66.9 Active 421459370 Problem Unspecified cerebrovascular disease 437.9 Inactive 01993786 Problem CVA (cerebral vascular accident) I63.9 Active 072242332 Problem BPH (benign prostatic hyperplasia) N40.0 Active 985840246 ALLERGIES Unknown Allergies SOCIAL HISTORY No smoking Hx information available PLAN OF CARE VITAL SIGNS MEDICATIONS Unknown Medications RESULTS No Results PROCEDURES No Known procedures IMMUNIZATIONS No Known Immunizations
--- OUTSIDE RECORDS SUMMARY | 2017-12-13 13:07 | XMS REPORT ---
Author Author Lui Renee Organization [employer] Address Unknown Phone Unavailable Care Team Providers Care Column Precaster Name Role Phone Lui Renee CP Unavailable Allergies, Adverse Reactions, Alerts Substance Reaction Event Type Penicillins Info Not Available Non Drug Allergy Problems Problem Type Condition Code Onset Dates [...] hyperplasia) N40.0 Active Problem Obesity E66.9 Active Assessment Hyperlipemia E78.5 Active Assessment CVA (cerebral vascular accident) I63.9 Active Assessment Repeated falls R29.6 Active Assessment Bedbug bite W57.XXXA Active Assessment Influenza vaccine refused Z28.21 Active Problem Special screening for malignant neoplasms, colon V76.51 Inactive Assessment BPH (benign prostatic hyperplasia) N40.0 Active Problem Nocturia 788.43 Inactive Assessment Hypertension I10 Active Problem Vaccination not carried out because of patient refusal V64.06 Inactive Medications Medication Code System Code Instructions Start Date End Date Status Dosage Terazosin HCl [facility] [address]-15 1 mg Oral at bedtime Nov 03, 2013 2 capsules Lisinopril-Hydrochlorothiazide [facility] [address]-82 20-12.5 MG Orally Once a day Jul 23, 2014 1 tablet Atorvastatin Calcium [facility] [address]-92 80 MG Orally Once a day Jul 17, 2015 1 tablet Aspirin EC [facility] [address]-90 325 MG Oral 1 (one) daily March 02, 2013 not defined Procedures Procedure Coding System Code Date Office Visit, Est Pt., Level 4 CPT-4 78665 Jul 17, 2015 Vital Signs Date/Time: Jul 17, 2015 Temperature 98.3 F Weight 226 lbs Height 67.75 in Respiratory Rate 20 /min Cardiac Monitoring Heart Rate 80 /min Blood Pressure Diastolic 70 mm Hg Blood Pressure Systolic 136 mm Hg BMI 34.61 Index Results Name Result Date Reference Range Unit Abnormality Flag Metabolic Panel (14), Comprehensive (CMP) [id number] Summary Purpose [employer] Submission
--- OUTSIDE RECORDS SUMMARY | 2017-12-13 13:07 | XMS REPORT ---
Author Author Lui Renee [facility] Address [address] [place] [address] Care Team Providers Care Drop Count Associate Name Role Phone Lui Renee Unavailable PROBLEMS Type Condition ICD9-CM Code FOB09-FO Code Onset Dates Condition Status SNOMED Code Problem Other specified counseling V65.49 Inactive 601110659 Problem Other and unspecified angina pectoris 413.9 Inactive 723300397 Problem Hypertrophy (benign) of prostate without urinary obstruction and other lower urinary tract symptoms [LUTS] 600.00 Inactive 676943711 Problem Special screening for malignant neoplasms, colon V76.51 Inactive 582420504 Problem Nocturia 788.43 Inactive 002505127 Problem Vaccination not carried out because of patient refusal V64.06 Inactive 046600549165 Problem Personal history of tobacco use, presenting hazards to health V15.82 Inactive 5732515444937 Problem Prostatic hyperplasia N40.0 Active 209069180 Problem Hypertension I10 Active 67767235 Problem Obesity E66.9 Active 884382873 Problem Unspecified cerebrovascular disease 437.9 Inactive 07652175 Problem Hyperlipemia E78.5 Active 84786170 Problem CVA (cerebral vascular accident) I63.9 Active 201428974 ALLERGIES Unknown Allergies SOCIAL HISTORY No smoking Hx information available PLAN OF CARE VITAL SIGNS MEDICATIONS Unknown Medications RESULTS No Results PROCEDURES No Known procedures IMMUNIZATIONS No Known Immunizations
[2017-12-13] MEDS ORDERED: ZIPRASIDONE 20 MG INJ (GEODON) VIAL IM ONE ×3 (13:20→15:15)
[2017-12-13] MEDS ORDERED: WATER (STERILE) FOR INJECTION 20 ML ONE ×2 (13:24→15:15)
[2017-12-13 13:29] LABS: BASOPHILS % (AUTO) 0 % (0-10); EOSINOPHILS # (AUTO) 0.2 10^3/uL (0.0-0.3); EOSINOPHILS % (AUTO) 2 % (0-10); HEMATOCRIT 44 % (40-54); HEMOGLOBIN 14.7 G/DL (13.3-17.7); LYMPHOCYTES # (AUTO) 1.4 X 10^3 (1.0-4.0); LYMPHOCYTES % (AUTO) 16 % (12-44); MEAN CORPUSCULAR HEMOGLOBIN 31 PG (25-34); MEAN CORPUSCULAR HGB CONC 34 G/DL (32-36); MEAN CORPUSCULAR VOLUME 91 FL (80-99); MEAN PLATELET VOLUME 10.5 FL (7.4-10.4); MONOCYTES # (AUTO) 1.2 X 10^3 (0.0-1.0); MONOCYTES % (AUTO) 13 % (0-12); NEUTROPHILS # (AUTO) 6.3 X 10^3 (1.8-7.8); NEUTROPHILS % (AUTO) 69 % (42-75); PLATELET COUNT 155 10^3/uL (130-400); RED BLOOD COUNT 4.81 10^6/uL (4.35-5.85); RED CELL DISTRIBUTION WIDTH 14.2 % (10.0-14.5); WHITE BLOOD COUNT 9.1 10^3/uL (4.3-11.0)
[2017-12-13 13:45] LABS: ALANINE AMINOTRANSFERASE 21 U/L (0-55); ALBUMIN 4.2 GM/DL (3.2-4.5); ALKALINE PHOSPHATASE 41 U/L (40-136); BILIRUBIN,TOTAL 0.3 MG/DL (0.1-1.0); BUN/CREATININE RATIO 31; CALCIUM 9.6 MG/DL (8.5-10.1); CARBON DIOXIDE 28 MMOL/L (21-32); CHLORIDE 105 MMOL/L (98-107); CREATININE SERUM 0.96 MG/DL (0.60-1.30); GFR ESTIMATED > 60; GLUCOSE 98 MG/DL (70-105); POTASSIUM 4.8 MMOL/L (3.6-5.0); SODIUM 140 MMOL/L (135-145); TOTAL PROTEIN 6.8 GM/DL (6.4-8.2)
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
[2017-12-13 13:53] LABS: VALPROIC ACID 55.5 UG/ML (50.0-100.0)
[2017-12-13 15:53] LABS: BILIRUBIN,URINE NEGATIVE (NEGATIVE); CLARITY,URINE CLEAR; COLOR,URINE YELLOW; GLUCOSE, URINE (UA) NEGATIVE (NEGATIVE); KETONES,URINE NEGATIVE (NEGATIVE); LEUKOCYTE ESTERASE ,URINE NEGATIVE (NEGATIVE); NITRITE,URINE NEGATIVE (NEGATIVE); PH,URINE 8 (5-9); PROTEIN,URINE NEGATIVE (NEGATIVE); UROBILINOGEN,URINE NORMAL (NORMAL)
[2017-12-13] MEDS ORDERED: LORazepam INJ 2 MG/ML (ATIVAN) VIAL IJ ONE (16:00)
[2017-12-13 16:02] LABS: BACTERIA,URINE NEGATIVE /HPF; RBC,URINE RARE /HPF; WBC,URINE RARE /HPF
[2017-12-13 17:49] VITALS: BP 113/78
== END 2017-12-13 17:49 ==
LOC: ER 13:02
DX: G30.9 Alzheimer's disease, unspecified (principal); F03.91 Unspecified dementia, unspecified severity, with behavioral disturbance; R45.1 Restlessness and agitation
CPT/HCPCS: 36415; 80053; 80164; 81000; 85025; 96372; 99284

== ENCOUNTER 2017-12-27 16:40 | Emergency (ER) | payer MEDICARE ==
[~2017-12-27] VITALS: Ht 180.3 cm; Wt 90.7 kg
[2017-12-27] MEDS ORDERED: 1/2 NS IV SOLUTION 1,000 ML IV ONE ×2 (16:45→18:00)
--- OUTSIDE RECORDS SUMMARY | 2017-12-27 16:46 | XMS REPORT | Referral Summary ---
Author Author [facility] Organization [facility] Address Unknown Phone Unavailable Care Team Providers Care Well Blower Name Role Phone No PCP, Pt States PCP Encounter VC Date(s): 05/07/17 - 05/07/17 [facility] [address] [place] [address] Discharge Diagnosis: Fall Discharge Diagnosis: Dizziness Discharge Diagnosis: Urinary tract infection Discharge Disposition: 01-Home or Self Care Attending Physician: Korin Bass MD Admitting Physician: Korin Bass MD Vital Signs Most recent to 1 oldest [Reference Range]: Temperature Oral 36.8 degC [35.8-37.3 degC] (05/07/17 1:45 PM) Peripheral Pulse 83 bpm Rate [60-100 bpm] (05/07/17 7:06 PM) Heart Rate Monitored 86 bpm [60-100 bpm] (05/07/17 6:01 PM) Respiratory Rate 20 br/min [14-20 br/min] (05/07/17 7:06 PM) Blood Pressure 148/98 mmHg [90-140/60-90 mmHg] *HI* (05/07/17 7:06 PM) Mean Arterial 116 mmHg Pressure, Cuff (05/07/17 6:01 PM) SpO2 98 % (05/07/17 7:06 PM) Problem List Condition Effective Dates Status Health Status Informant Acute Active pain(Confirmed) At risk of pressure Active sore(Confirmed) CVA (cerebral Active patient vascular accident)(Confirmed) MO (myocardial Active patient infarction)(Confirme d) No Chronic Problems Active Tissue perfusion Active alteration(Confirmed )1 1Problem added automatically by system based on initiation of Tissue Perfusion Cerebral Plan of Care Allergies, Adverse Reactions, Alerts Substance Reaction Severity Status penicillin Skin Active Medications aspirin 81 mg oral tablet, chewable 81 mg 1 tabs, Oral, Daily, # 30 tabs, 0 Refill(s) Start Date: 03/29/17 Stop Date: 04/28/17 Status: Ordered atorvastatin 80 mg oral tablet 80 mg 1 tabs, Oral, Daily, 0 Refill(s) Start Date: 03/23/17 Status: Ordered cephalexin 500 mg oral tablet 500 mg 1 tabs, Oral, BID, X 7 days, # 14 tabs, 0 Refill(s) Start Date: 05/07/17 Stop Date: 05/14/17 Status: Ordered terazosin 1 mg oral capsule 2 mg 2 caps, Oral, Bedtime (once a day), 0 Refill(s) Start Date: 03/23/17 Status: Ordered Results Hematology Most recent to 1 oldest [Reference Range]: WBC [4.8-10.8 6.1 10*3/uL 10*3/uL] (05/07/17 1:55 PM) RBC [4.60-6.20] 5.16 (05/07/17 1:55 PM) Hgb [14.0-18.0 14.4 gm/dL gm/dL] (05/07/17 1:55 PM) Hct [42.0-52.0 %] 42.5 % (05/07/17 1:55 PM) MCV [82.0-99.0 fL] 82.4 fL (05/07/17 1:55 PM) MCH [27.0-32.0 pg] 27.9 pg (05/07/17 1:55 PM) MCHC [32.0-36.0 33.9 gm/dL gm/dL] (05/07/17 1:55 PM) RDW [11.5-14.5 %] 15.5 % *HI* (05/07/17 1:55 PM) Platelet [150-400 179 10*3/uL 10*3/uL] (05/07/17 1:55 PM) MPV [9.4-12.3 fL] 9.4 fL (05/07/17 1:55 PM) Immature 0.3 % Granulocytes (05/07/17 1:55 PM) [0.0-1.0 %] Neutrophils [51-75 70 % %] (05/07/17 1:55 PM) Lymphocytes [20-46 19 % %] *LOW* (05/07/17 1:55 PM) Monocytes [4-11 %] 10 % (05/07/17 1:55 PM) Eosinophils [0-4 %] 1 % (05/07/17 1:55 PM) Basophils [0-2 %] 1 % (05/07/17 1:55 PM) Neutro Absolute 4.22 [1.90-7.00] (05/07/17 1:55 PM) Lymph Absolute 1.15 [0.80-3.30] (05/07/17 1:55 PM) [place] Absolute 0.60 [0.30-1.00] (05/07/17 1:55 PM) Eos Absolute 0.04 [0.00-0.50] (05/07/17 1:55 PM) Baso Absolute 0.03 [0.00-0.20] (05/07/17 1:55 PM) Nucleated RBC 0.0 /100 WBC Automated [0 /100 (05/07/17 1:55 PM) WBC] Chemistry Most recent to 1 oldest [Reference Range]: Sodium Lvl [136-144 138 mEq/L mEq/L] (05/07/17 1:55 PM) Potassium Lvl 3.5 mEq/L [3.6-5.1 mEq/L] *LOW* (05/07/17 1:55 PM) Chloride [99-109 104 mEq/L mEq/L] (05/07/17 1:55 PM) CO2 [22-32 mEq/L] 23 mEq/L (05/07/17 1:55 PM) AGAP [3-20 mEq/L] 11 mEq/L (05/07/17 1:55 PM) BUN [4-20 mg/dL] 13 mg/dL (05/07/17 1:55 PM) Glucose Lvl [70-100 98 mg/dL mg/dL] (05/07/17 1:55 PM) Creatinine Lvl 1.11 mg/dL [0.64-1.27 mg/dL] (05/07/17 1:55 PM) eGFR [>60 mL/min] >60 mL/min 1 (05/07/17 1:55 PM) Calcium Lvl 9.5 mg/dL [8.6-10.0 mg/dL] (05/07/17 1:55 PM) Albumin Lvl [3.5-4.8 3.8 gm/dL gm/dL] (05/07/17 1:55 PM) Total Protein 6.7 gm/dL [6.1-7.9 gm/dL] (05/07/17 1:55 PM) Globulin [1.9-4.3 2.9 gm/dL gm/dL] (05/07/17 1:55 PM) ALT [17-63 U/L] 17 U/L (05/07/17 1:55 PM) AST [15-41 U/L] 22 U/L (05/07/17 1:55 PM) Alk Phos [26-104 75 U/L U/L] (05/07/17 1:55 PM) Bili Total [0.2-1.2 0.8 mg/dL 2 mg/dL] (05/07/17 1:55 PM) Troponin [<0.06 <0.05 ng/mL ng/mL] (05/07/17 1:55 PM) 1Result Comment: Multiply eGFR results by 1.21 for race. 2Result Comment: Naproxen, specifically the metabolite O-desmethylnaproxen, may cause spurious elevation in Total Bilirubin levels. Urinalysis Most recent to 1 oldest [Reference Range]: UA Color Yellow (05/07/17 4:38 PM) UA Appear Cloudy *ABN* (05/07/17 4:38 PM) UA pH [5.0-8.0] 5.0 (05/07/17 4:38 PM) UA Leuk Est Trace [Negative] *ABN* (05/07/17 4:38 PM) UA Nitrite Negative [Negative] (05/07/17 4:38 PM) UA Protein Pos 1+ [Negative] *ABN* (05/07/17 4:38 PM) UA Glucose Negative [Negative] (05/07/17 4:38 PM) UA Ketones Pos 1+ [Negative] *ABN* (05/07/17 4:38 PM) UA Urobilinogen >=4.0 mg/dL [<1.0 mg/dL] (05/07/17 4:38 PM) UA Bili [Negative] Negative (05/07/17 4:38 PM) UA Blood [Negative] Negative (05/07/17 4:38 PM) UA Spec Grav 1.025 [1.003-1.030] (05/07/17 4:38 PM) Type Clean Catch (05/07/17 4:38 PM) UA WBC [0-4] 20-50 *ABN* (05/07/17 4:38 PM) UA RBC [0-2] 10-20 *ABN* (05/07/17 4:38 PM) Epithelial Cells 2-5 (05/07/17 4:38 PM) UA Bacteria Occasional *ABN* (05/07/17 4:38 PM) Crystals Ca Ox (05/07/17 4:38 PM) UA Mucous Present (05/07/17 4:38 PM) Immunizations No data available for this section Procedures Procedure Date Related Diagnosis Body Site Procedure1 1leg surgery Social History Social History Type Response Smoking Status Former smoker Assessment and Plan No data available for this section
--- OUTSIDE RECORDS SUMMARY | 2017-12-27 16:48 | XMS REPORT | Continuity of Care Document ---
Author Author [facility] Organization [facility] Address Unknown Phone Unavailable Allergies Active Description Code Type Severity Reaction Onset Reported/Identified Relationship to Patient Clinical Status Yes Penicillins Penicillins Drug Allergy Moderate RASH 10/07/2011 Yes No Known Allergies NKMA N/A N/A 03/23/2017 Yes penicillin NKMA N/A [id number] 05/07/2017 Yes No Known Drug Allergies [id number] Drug Allergy Unknown N/A 12/13/2017 Medications Medication Packaging Start Date Stop Date [...] and giddiness 05/10/2017 Bass Denise Final Z79.01 FPC (current) use of anticoagulants 05/10/2017 Bass Denise Final Z86.73 Personal history of transient ischemic attack (TIA), and cerebral infarctio 05/10/2017 Shiousmane Korin Final Z87.891 Personal history of nicotine dependence 12/15/2017 SELIN DUNCAN APRN Ot F03.91 UNSPECIFIED DEMENTIA WITH BEHAVIORAL DIS 12/15/2017 SELIN DUNCAN APRN Ot G30.9 ALZHEIMER'S DISEASE, UNSPECIFIED 12/15/2017 SELIN DUNCAN APRN Ot R45.1 RESTLESSNESS AND AGITATION Procedures There is no data. <section xmlns="urn:hl7-org:v3" xmlns:xsi="http:// www.[employer].org/2001/XMLSchema-instance"> <templateId root= "[email or web address]" /> <templateId root= "[id number]" /> <code codeSystemName="LOINC" codeSystem= "[email or web address]" code="60230-2" displayName="Results" /> <title>Results< /title> <text> <table> <thead> [...] mg/dL</td> <td> < 10</td> </ tr> <tr> <th colspan="10">CHEM/HEM PROFILE-BEDSIDE - 09/28/16 11 :30</th> </tr> [...] <td>CALCIUM IONIZED</td> <td>4.7 mg/dL</td> <td>4.5-5.3</td> </tr> <tr> < colspan="10">BLOOD CULTURE - 09/28/16 13:05</th> </tr> <tr> <td>Microbiology</td> <td> </td> <td /> </tr> <tr> < colspan="10">LACTIC ACID - 09/28/16 13:05</th> </tr> <tr> [...] <td>UR PH</td> <td>5.0 </td> <td>5.0-7.0</td> </tr> <tr> <th colspan="10">UA MICROSCOPIC - 09/28/16 14:10 </th> </tr> <tr> <td>UA AMORPHOUS SEDIMENT</td> <td>2+ </td> <td /> </tr> <tr> <td>UA BACTERIA</ td> <td>1+ </td> <td>NEGATIVE</td> </tr> <tr> <td>UA RBC</td> <td>5-10 rbc/hpf</td> <td>0 - 3</td> </tr> <tr> <td>UA VOLUME FOR EXAM</td> <td>12.0 mL</td> <td>(12mL STD)</td> </tr> <tr> <td>UA WBC</td> <td>0-1 wbc/hpf</td> <td>0 - 5</td> </tr> <tr> <th colspan="10">UR DRUGS OF ABUSE SCREEN - 09/28/16 [...] 200 ng/mL) </td> <td >NEGATIVE</td> </tr> <tr> < colspan="10">CBC With Platelet and Differential - 03/23/17 16:00</th> </tr> <tr> <td>Absolute Basophils</td> <td>0.01 10*3/uL</td> <td>0.00- 0.20</td> </tr> <tr> <td>Absolute Eosinophils</td> <td>0.02 10*3/uL</td> <td>0.00-0.50</td> </tr> <tr> <td>Absolute Lymphocytes</td> <td>1.14 10*3/uL</td> < td>0.80-3.30</td> </tr> <tr> <td>Absolute Monocytes</td> <td>1.47 10*3/uL</td> <td>0.30-1.00</td> </tr> <tr> <td>Absolute Neutrophils</td> <td>14.66 10*3/uL</td> <td>1.90-7.00</td> </tr> <tr> <td>Basophils</td> <td>0 %</td> <td>0-2</td> </tr> <tr> <td>Eosinophils</td> <td>0 %</td> <td>0-4</td> </ tr> <tr> <td>HCT</td> <td>37.8 %</td> <td> 42.0-52.0</td> </tr> <tr> <td>HGB</td> <td>13.1 g/dL</td> <td>14.0-18.0</td> </tr> <tr> <td> Immature Granulocytes</td> <td>1.4 %</td> <td>0.0-1.0</td > </tr> <tr> <td>Lymphocytes</td> <td>7 %</ td> <td>20-46</td> </tr> <tr> <td>MCH</td> <td>27.6 pg</td> <td>27.0-32.0</td> </tr> <tr> <td>MCHC</td> <td>34.7 g/dL</td> <td>32.0-36.0</td> </tr> <tr> <td>MCV</td> <td>79.7 fL</td> < td>82.0-99.0</td> </tr> <tr> <td>Monocytes</td> <td>8 %</td> <td>4-11</td> </tr> <tr> <td> MPV</td> <td>8.7 fL</td> <td>9.4-12.3</td> </tr> <tr> <td>Neutrophils</td> <td>84 %</td> <td>51- 75</td> </tr> <tr> <td>Nucleated RBC Automated</td> <td>0.0 /100 WBC</td> <td /> </tr> <tr> <td >Platelet Count</td> <td>336 K/uL</td> <td>150-400</td> </tr> <tr> <td>RBC</td> <td>4.74 10*6/uL</td> <td>4.60-6.20</td> </tr> <tr> <td>RDW</td> < td>13.9 %</td> <td>11.5-14.5</td> </tr> <tr> <td>WBC</td> <td>17.6 K/uL</td> <td>4.8-10.8</td> </ tr> <tr> <th colspan="10">Comprehensive Metabolic Panel (CMP) - 03/23/17 16:00</th> </tr> <tr> <td>Albumin</td> <td>2.5 g/dL</td> <td>3.5-4.8</td> </tr> <tr> < td>Alkaline Phosphatase</td> <td>86 U/L</td> <td>26-104</td> </tr> <tr> <td>ALT (SGPT)</td> <td>26 U/L</td> <td>17-63</td> </tr> <tr> <td>Anion Gap</td> <td>10 mEq/L</td> <td>3-20</td> </tr> <tr> <td>AST (SGOT)</td> <td>29 U/L</td> <td>15-41</td> < /tr> <tr> <td>Bilirubin Total</td> <td>1.0 mg/dL</td> <td>0.2-1.2</td> </tr> <tr> <td>BUN</td> <td>15 mg/dL</td> <td>4-20</td> </tr> <tr> < td>Calcium</td> <td>8.5 mg/dL</td> <td>8.6-10.0</td> </ tr> <tr> <td>Chloride</td> <td>96 mEq/L</td> < td>99-109</td> </tr> <tr> <td>CO2</td> <td>24 mEq/L</td> <td>22-32</td> </tr> <tr> <td> Creatinine</td> <td>0.93 mg/dL</td> <td>0.64-1.27</td> </tr> <tr> <td>Globulin</td> <td>3.7 g/dL</td> <td>1.9-4.3</td> </tr> <tr> <td>Glucose</td> < td>109 mg/dL</td> <td>70-100</td> </tr> <tr> <td >Potassium</td> <td>3.0 mEq/L</td> <td>3.6-5.1</td> </ tr> <tr> <td>Protein</td> <td>6.2 g/dL</td> < td>6.1-7.9</td> </tr> <tr> <td>Sodium</td> <td> 130 mEq/L</td> <td>136-144</td> </tr> <tr> <th colspan="10">eGFR - 03/23/17 16:00</th> </tr> <tr> <td> eGFR</td> <td>>60 mL/min</td> <td>>60</td> </tr> <tr> < colspan="10">Urine Drug Screen - 03/23/17 16:50</th> </tr> <tr> <td>Tricyclics</td> <td>Not Detected NA</td> <td /> </tr> <tr> <td>Amph/Meth/Ecstasy< /td> <td>Negative NA</td> <td /> </tr> <tr> <td>Barbiturates</td> <td>Negative NA</td> <td /> </tr> <tr> <td>Benzodiazepine</td> <td>Negative NA</ td> <td /> </tr> <tr> <td>Cannabinoid</td> <td>Negative NA</td> <td /> </tr> <tr> <td> Cocaine</td> <td>Negative NA</td> <td /> </tr> < tr> <td>EDDP (Methadone met.)</td> <td>Negative NA</td> <td /> </tr> <tr> <td>Opiate</td> <td> Negative NA</td> <td /> </tr> <tr> <td> Phencyclidine (PCP)</td> <td>Negative NA</td> <td /> </ tr> <tr> < colspan="10">Urinalysis with reflex microscopic - 03/23/17 16:50</th> </tr> <tr> <td>Appearance</td> <td>Clear NA</td> <td /> </tr> <tr> <td> Bilirubin</td> <td>Negative NA</td> <td>Negative</td> < /tr> <tr> <td>Blood</td> <td>Pos 2+ NA</td> < td>Negative</td> </tr> <tr> <td>Color</td> <td> Maite NA</td> <td /> </tr> <tr> <td>Glucose, Urine</td> <td>Negative </td> <td>Negative</td> </tr> <tr> <td>Ketones</td> <td>Negative </td> <td> Negative</td> </tr> <tr> <td>Leukocyte Esterase</td> <td>Negative NA</td> <td>Negative</td> </tr> <tr> <td>Nitrites</td> <td>Negative NA</td> <td>Negative</ td> </tr> <tr> <td>pH</td> <td>6.0 NA</td> <td>5.0-8.0</td> </tr> <tr> <td>Protein</td> <td>Negative NA</td> <td>Negative</td> </tr> <tr> <td>Specific [place]</td> <td>1.020 NA</td> <td>1.003- 1.030</td> </tr> <tr> <td>UA Collection type</td> <td>Catheter NA</td> <td /> </tr> <tr> <td> Urobilinogen</td> <td>2.0 mg/dL</td> <td><1.0</td> < /tr> <tr> <th colspan="10">Urine Microscopic - 03/23/17 16:50</ th> </tr> <tr> <td>Bacteria</td> <td>None Seen NA</td> <td /> </tr> <tr> <td>Epithelial Cells</ td> <td>None Seen /HPF</td> <td /> </tr> <tr> <td>RBC, Urine</td> <td>2 /HPF</td> <td>0-2</td> </tr> <tr> <td>Urine Mucus</td> <td>Present NA</td> <td /> </tr> <tr> <td>WBC, Urine</td> <td>0 /HPF</td> <td>0-4</td> </tr> <tr> <th colspan="10">Lactic Acid Venous - 03/23/17 21:06</th> </tr> <tr> <td>Lactic Acid Venous</td> <td>0.9 mEq/L</td> <td> 0.5-2.2</td> </tr> <tr> <th colspan="10">CBC With Platelet and Differential - 03/24/17 06:14</th> </tr> <tr> <td>Absolute Basophils</td> <td>0.01 10*3/uL</td> <td>0.00- 0.20</td> </tr> <tr> <td>Absolute Eosinophils</td> <td>0.05 10*3/uL</td> <td>0.00-0.50</td> </tr> <tr> <td>Absolute Lymphocytes</td> <td>1.08 10*3/uL</td> < td>0.80-3.30</td> </tr> <tr> <td>Absolute Monocytes</td> <td>1.23 10*3/uL</td> <td>0.30-1.00</td> </tr> <tr> <td>Absolute Neutrophils</td> <td>12.55 10*3/uL</td> <td>1.90-7.00</td> </tr> <tr> <td>Basophils</td> <td>0 %</td> <td>0-2</td> </tr> <tr> <td>Eosinophils</td> <td>0 %</td> <td>0-4</td> </ tr> <tr> <td>HCT</td> <td>37.7 %</td> <td> 42.0-52.0</td> </tr> <tr> <td>HGB</td> <td>12.5 g/dL</td> <td>14.0-18.0</td> </tr> <tr> <td> Immature Granulocytes</td> <td>1.0 %</td> <td>0.0-1.0</td > </tr> <tr> <td>Lymphocytes</td> <td>7 %</ td> <td>20-46</td> </tr> <tr> <td>MCH</td> <td>27.1 pg</td> <td>27.0-32.0</td> </tr> <tr> <td>MCHC</td> <td>33.2 g/dL</td> <td>32.0-36.0</td> </tr> <tr> <td>MCV</td> <td>81.6 fL</td> < td>82.0-99.0</td> </tr> <tr> <td>Monocytes</td> <td>8 %</td> <td>4-11</td> </tr> <tr> <td> MPV</td> <td>9.1 fL</td> <td>9.4-12.3</td> </tr> <tr> <td>Neutrophils</td> <td>83 %</td> <td>51- 75</td> </tr> <tr> <td>Nucleated RBC Automated</td> <td>0.0 /100 WBC</td> <td /> </tr> <tr> <td >Platelet Count</td> <td>305 K/uL</td> <td>150-400</td> </tr> <tr> <td>RBC</td> <td>4.62 10*6/uL</td> <td>4.60-6.20</td> </tr> <tr> <td>RDW</td> < td>14.1 %</td> <td>11.5-14.5</td> </tr> <tr> <td>WBC</td> <td>15.1 K/uL</td> <td>4.8-10.8</td> </ tr> <tr> <th colspan="10">Basic Metabolic Panel (BMP) - 06:14</th> </tr> <tr> <td>Anion Gap</td> <td> 8 mEq/L</td> <td>3-20</td> </tr> <tr> <td>BUN</ td> <td>15 mg/dL</td> <td>4-20</td> </tr> <tr> <td>Calcium</td> <td>8.3 mg/dL</td> <td>8.6-10.0</td > </tr> <tr> <td>Chloride</td> <td>96 mEq/L</td > <td>99-109</td> </tr> <tr> <td>CO2</td> <td>29 mEq/L</td> <td>22-32</td> </tr> <tr> <td>Creatinine</td> <td>1.04 mg/dL</td> <td>0.64-1.27</td> </tr> <tr> <td>Glucose</td> <td>110 mg/dL</td> <td>70-100</td> </tr> <tr> <td>Potassium</td> <td>2.9 mEq/L</td> <td>3.6-5.1</td> </tr> <tr> <td>Sodium</td> <td>133 mEq/L</td> <td>136-144</td> </tr> <tr> <th colspan="10">Magnesium - 03/24/17 06:14</th> </tr> <tr> <td>Magnesium</td> <td>2.2 mg/dL</td > <td>1.8-2.5</td> </tr> <tr> <th colspan="10"> Phosphorus - 03/24/17 06:14</th> </tr> <tr> <td> Phosphorus</td> <td>3.0 mg/dL</td> <td>2.4-4.7</td> </ tr> <tr> <th colspan="10">eGFR - 03/24/17 06:14</th> </tr > <tr> <td>eGFR</td> <td>>60 mL/min</td> < td>>60</td> </tr> <tr> < colspan="10">Creatine Kinase (CPK) - 03/24/17 06:14</th> </tr> <tr> <td> Creatine Kinase (CPK)</td> <td>22 U/L</td> <td>49-397</td> </tr> <tr> <th colspan="10">Procalcitonin - 03/24/17 06:14< /th> </tr> <tr> <td>Procalcitonin</td> <td>0.75 ng/mL</td> <td>0.00-0.09</td> </tr> <tr> <th colspan="10">Lipid Panel - 03/24/17 06:14</th> </tr> <tr> <td>Cardiac Risk</td> <td>5.8 </td> <td>0.0-5.7</td> </tr> <tr> <td>Cholesterol</td> <td>111 mg/dL</td> <td>0-199</td> </tr> <tr> <td>HDL Cholesterol</td> <td>19 mg/dL</td> <td>40-84</td> </tr> <tr> <td>LDL Cholesterol</td> <td>74 mg/dL</td> <td>0-130</ td> </tr> <tr> <td>Triglycerides</td> <td>88 mg/ dL</td> <td>0-149</td> </tr> <tr> <td>VLDL Cholesterol</td> <td>18 mg/dL</td> <td>0-28</td> </tr> <tr> <th colspan="10">TSH with Reflex Free T4 - 03/24/17 16:26< /th> </tr> <tr> <td>TSH with Reflex Free T4</td> <td>0.18 uIU/mL</td> <td>0.35-4.94</td> </tr> <tr> <th colspan="10">Lipid Panel - 03/24/17 16:26</th> </tr> <tr > <td>Cardiac Risk</td> <td>4.6 </td> <td>0.0-5.7</td > </tr> <tr> <td>Cholesterol</td> <td>110 mg/dL< /td> <td>0-199</td> </tr> <tr> <td>HDL Cholesterol</td> <td>24 mg/dL</td> <td>40-84</td> </tr > <tr> <td>LDL Cholesterol</td> <td>73 mg/dL</td> <td>0-130</td> </tr> <tr> <td>Triglycerides</td> <td>67 mg/dL</td> <td>0-149</td> </tr> <tr> <td>VLDL Cholesterol</td> <td>13 mg/dL</td> <td>0-28</td> </tr> <tr> <th colspan="10">Vitamin B12 - 03/24/17 16:26 </th> </tr> <tr> <td>Vitamin B12</td> <td>459 pg /mL</td> <td>213-816</td> </tr> <tr> <th colspan ="10">Free T4 - 03/24/17 16:26</th> </tr> <tr> <td>Free T4</td> <td>1.3 ng/dL</td> <td>0.7-1.5</td> </tr> <tr> <th colspan="10">RPR - 03/24/17 16:26</th> </tr> <tr> <td>RPR</td> <td>Non-reactive NA</td> <td /> </tr> <tr> <th colspan="10">Hemoglobin A1C - 03/24/17 16:26 </th> </tr> <tr> <td>Hemoglobin A1C</td> <td> 5.9 %</td> <td>4.1-5.6</td> </tr> <tr> <th colspan="10">Estimated Average Glucose - 03/24/17 16:26</th> </tr> <tr> <td>Estimated Average Glucose</td> <td>122.6 mg/dL</td > <td /> </tr> <tr> <th colspan="10">Vitamin D, 25-Hydroxy - 03/24/17 16:26</th> </tr> <tr> <td>25- Hydroxy D Total</td> <td>46 ng/mL</td> <td>30-100</td> </tr> <tr> <th colspan="10">CBC With Platelet No Differential - 03/25/17 06:30</th> </tr> <tr> <td>HCT</td> <td> 36.3 %</td> <td>42.0-52.0</td> </tr> <tr> < td>HGB</td> <td>12.0 g/dL</td> <td>14.0-18.0</td> </tr > <tr> <td>MCH</td> <td>27.1 pg</td> <td>27.0- 32.0</td> </tr> <tr> <td>MCHC</td> <td>33.1 g/dL </td> <td>32.0-36.0</td> </tr> <tr> <td>MCV</td > <td>82.1 fL</td> <td>82.0-99.0</td> </tr> <tr > <td>MPV</td> <td>8.7 fL</td> <td>9.4-12.3</td> </tr> <tr> <td>Platelet Count</td> <td>261 K/uL</td > <td>150-400</td> </tr> <tr> <td>RBC</td> <td>4.42 10*6/uL</td> <td>4.60-6.20</td> </tr> <tr> <td>RDW</td> <td>14.2 %</td> <td>11.5-14.5</td> </tr> <tr> <td>WBC</td> <td>16.0 K/uL</td> <td>4.8-10.8</td> </tr> <tr> < colspan="10"> Renal Function Panel - 03/25/17 06:30</th> </tr> <tr> <td >Albumin</td> <td>2.1 g/dL</td> <td>3.5-4.8</td> </tr> <tr> <td>Anion Gap</td> <td>8 mEq/L</td> <td> 3-20</td> </tr> <tr> <td>BUN</td> <td>15 mg/dL</ td> <td>4-20</td> </tr> <tr> <td>Calcium</td> <td>8.4 mg/dL</td> <td>8.6-10.0</td> </tr> <tr> <td>Chloride</td> <td>101 mEq/L</td> <td>99-109</td> </tr> <tr> <td>CO2</td> <td>25 mEq/L</td> <td>22-32</td> </tr> <tr> <td>Creatinine</td> <td>1.00 mg/dL</td> <td>0.64-1.27</td> </tr> <tr> <td>Glucose</td> <td>109 mg/dL</td> <td>70-100</td> </tr> <tr> <td>Phosphorus</td> <td>2.5 mg/dL</td> <td>2.4-4.7</td> </tr> <tr> <td>Potassium</td> <td>3.9 mEq/L</td> <td>3.6-5.1</td> </tr> <tr> <td>Sodium</td> <td>134 mEq/L</td> <td>136-144</td> </tr> <tr> <th colspan="10">Magnesium - 03/25/17 06:30</ th> </tr> <tr> <td>Magnesium</td> <td>2.1 mg/dL< /td> <td>1.8-2.5</td> </tr> <tr> <th colspan="10 ">eGFR - 03/25/17 06:30</th> </tr> <tr> <td>eGFR</td> <td>>60 mL/min</td> <td>>60</td> </tr> <tr> <th colspan="10">Flow, Basic LSP - 03/25/17 06:30</th> </tr> <tr> <td>CD19 (B Cells)</td> <td>6.8 %</td> <td>7.0-23.0</td> </tr> <tr> <td>CD19 Absolute</td> <td>65 Cells/mm3</td> <td>100-600</td> </tr> <tr> <td>CD3 Absolute</td> <td>756 Cells/mm3</td> <td>950 -2350</td> </tr> <tr> <td>CD3 Peripheral T Cells</td> <td>78.8 %</td> <td>60.0-85.0</td> </tr> <tr> <td>CD4 Absolute</td> <td>627 Cells/mm3</td> <td>540 -1600</td> </tr> <tr> <td>CD4 Crosby T Cell</td> <td>65.3 %</td> <td>29.0-59.0</td> </tr> <tr> <td>CD4:CD8 Ratio</td> <td>4.98 </td> <td>1.00-2.90</td> </tr> <tr> <td>CD56</td> <td>12.1 %</td> <td>6.0-29.0</td> </tr> <tr> <td>CD56 Absolute</ td> <td>116 Cells/mm3</td> <td>100-600</td> </tr> <tr> <td>CD8 Absolute</td> <td>126 Cells/mm3</td> <td>300-900</td> </tr> <tr> <td>CD8 Suppressor T Cells</ td> <td>13.1 %</td> <td>18.0-36.0</td> </tr> <tr> <td>Lymphocytes, Absolute</td> <td>960 mm3</td> <td>7246-2811</td> </tr> <tr> <th colspan="10">CBC With Platelet No Differential - 03/26/17 05:38</th> </tr> <tr> <td>HCT</td> <td>38.6 %</td> <td>42.0-52.0</td> </tr> <tr> <td>HGB</td> <td>12.7 g/dL</td> <td>14.0-18.0</td> </tr> <tr> <td>MCH</td> < td>27.3 pg</td> <td>27.0-32.0</td> </tr> <tr> < td>MCHC</td> <td>32.9 g/dL</td> <td>32.0-36.0</td> </tr > <tr> <td>MCV</td> <td>83.0 fL</td> <td>82.0- 99.0</td> </tr> <tr> <td>MPV</td> <td>9.0 fL</td > <td>9.4-12.3</td> </tr> <tr> <td>Platelet Count</td> <td>253 K/uL</td> <td>150-400</td> </tr> <tr> <td>RBC</td> <td>4.65 10*6/uL</td> <td>4.60 -6.20</td> </tr> <tr> <td>RDW</td> <td>14.5 &#37 ;</td> <td>11.5-14.5</td> </tr> <tr> <td>WBC</td > <td>13.0 K/uL</td> <td>4.8-10.8</td> </tr> <tr > <th colspan="10">Basic Metabolic Panel (BMP) - 03/26/17 05:38</th> </tr> <tr> <td>Anion Gap</td> <td>8 mEq/L</td> <td>3-20</td> </tr> <tr> <td>BUN</td> < td>15 mg/dL</td> <td>4-20</td> </tr> <tr> <td> Calcium</td> <td>8.7 mg/dL</td> <td>8.6-10.0</td> </tr > <tr> <td>Chloride</td> <td>98 mEq/L</td> <td >99-109</td> </tr> <tr> <td>CO2</td> <td>27 mEq/ L</td> <td>22-32</td> </tr> <tr> <td>Creatinine< /td> <td>0.90 mg/dL</td> <td>0.64-1.27</td> </tr> <tr> <td>Glucose</td> <td>115 mg/dL</td> <td>70- 100</td> </tr> <tr> <td>Potassium</td> <td>4.0 mEq/L</td> <td>3.6-5.1</td> </tr> <tr> <td> Sodium</td> <td>133 mEq/L</td> <td>136-144</td> </tr> <tr> <th colspan="10">Magnesium - 03/26/17 05:38</th> </ tr> <tr> <td>Magnesium</td> <td>2.2 mg/dL</td> <td>1.8-2.5</td> </tr> <tr> <th colspan="10"> Phosphorus - 03/26/17 05:38</th> </tr> <tr> <td> Phosphorus</td> <td>3.0 mg/dL</td> <td>2.4-4.7</td> </ tr> <tr> <th colspan="10">eGFR - 03/26/17 05:38</th> </tr > <tr> <td>eGFR</td> <td>>60 mL/min</td> < td>>60</td> </tr> <tr> <th colspan="10">CBC With Platelet No Differential - 03/27/17 06:59</th> </tr> <tr> <td>HCT</td> <td>37.8 %</td> <td>42.0-52.0</td> < /tr> <tr> <td>HGB</td> <td>12.5 g/dL</td> <td> 14.0-18.0</td> </tr> <tr> <td>MCH</td> <td>27.4 pg</td> <td>27.0-32.0</td> </tr> <tr> <td>MCHC</ td> <td>33.1 g/dL</td> <td>32.0-36.0</td> </tr> <tr> <td>MCV</td> <td>82.7 fL</td> <td>82.0-99.0</td > </tr> <tr> <td>MPV</td> <td>9.5 fL</td> <td>9.4-12.3</td> </tr> <tr> <td>Platelet Count</td> <td>235 K/uL</td> <td>150-400</td> </tr> <tr> <td>RBC</td> <td>4.57 10*6/uL</td> <td>4.60-6.20</td > </tr> <tr> <td>RDW</td> <td>14.2 %</td> <td>11.5-14.5</td> </tr> <tr> <td>WBC</td> <td>10.5 K/uL</td> <td>4.8-10.8</td> </tr> <tr> <th colspan="10">Renal Function Panel - 03/27/17 06:59</th> </tr> <tr> <td>Albumin</td> <td>2.2 g/dL</td> <td>3.5 -4.8</td> </tr> <tr> <td>Anion Gap</td> <td>7 mEq/L</td> <td>3-20</td> </tr> <tr> <td>BUN</td > <td>16 mg/dL</td> <td>4-20</td> </tr> <tr> <td>Calcium</td> <td>8.6 mg/dL</td> <td>8.6-10.0</td> </tr> <tr> <td>Chloride</td> <td>98 mEq/L</td> <td>99-109</td> </tr> <tr> <td>CO2</td> <td>28 mEq/L</td> <td>22-32</td> </tr> <tr> < td>Creatinine</td> <td>0.88 mg/dL</td> <td>0.64-1.27</td> </tr> <tr> <td>Glucose</td> <td>96 mg/dL</td> <td>70-100</td> </tr> <tr> <td>Phosphorus</td> <td>3.2 mg/dL</td> <td>2.4-4.7</td> </tr> <tr> <td>Potassium</td> <td>4.1 mEq/L</td> <td>3.6-5.1</td> </tr> <tr> <td>Sodium</td> <td>133 mEq/L</td> <td>136-144</td> </tr> <tr> <th colspan="10"> Magnesium - 03/27/17 06:59</th> </tr> <tr> <td>Magnesium< /td> <td>2.2 mg/dL</td> <td>1.8-2.5</td> </tr> < tr> <th colspan="10">eGFR - 03/27/17 06:59</th> </tr> <tr > <td>eGFR</td> <td>>60 mL/min</td> <td>>60</td > </tr> <tr> <th colspan="10">CBC With Platelet No Differential - 03/28/17 06:06</th> </tr> <tr> <td>HCT</td > <td>37.9 %</td> <td>42.0-52.0</td> </tr> < tr> <td>HGB</td> <td>12.4 g/dL</td> <td>14.0-18.0</td > </tr> <tr> <td>MCH</td> <td>27.0 pg</td> <td>27.0-32.0</td> </tr> <tr> <td>MCHC</td> <td>32.7 g/dL</td> <td>32.0-36.0</td> </tr> <tr> <td>MCV</td> <td>82.4 fL</td> <td>82.0-99.0</td> </ tr> <tr> <td>MPV</td> <td>8.8 fL</td> <td>9.4- 12.3</td> </tr> <tr> <td>Platelet Count</td> <td >213 K/uL</td> <td>150-400</td> </tr> <tr> <td> RBC</td> <td>4.60 10*6/uL</td> <td>4.60-6.20</td> </tr > <tr> <td>RDW</td> <td>13.9 %</td> <td> 11.5-14.5</td> </tr> <tr> <td>WBC</td> <td>9.8 K /uL</td> <td>4.8-10.8</td> </tr> <tr> < colspan="10">Renal Function Panel - 03/28/17 06:06</th> </tr> <tr > <td>Albumin</td> <td>2.3 g/dL</td> <td>3.5-4.8</td > </tr> <tr> <td>Anion Gap</td> <td>9 mEq/L</td > <td>3-20</td> </tr> <tr> <td>BUN</td> <td>15 mg/dL</td> <td>4-20</td> </tr> <tr> <td >Calcium</td> <td>8.8 mg/dL</td> <td>8.6-10.0</td> </tr > <tr> <td>Chloride</td> <td>98 mEq/L</td> <td >99-109</td> </tr> <tr> <td>CO2</td> <td>26 mEq/ L</td> <td>22-32</td> </tr> <tr> <td>Creatinine< /td> <td>0.96 mg/dL</td> <td>0.64-1.27</td> </tr> <tr> <td>Glucose</td> <td>95 mg/dL</td> <td>70-100 </td> </tr> <tr> <td>Phosphorus</td> <td>3.5 mg/ dL</td> <td>2.4-4.7</td> </tr> <tr> <td> Potassium</td> <td>4.3 mEq/L</td> <td>3.6-5.1</td> </tr > <tr> <td>Sodium</td> <td>133 mEq/L</td> <td> 136-144</td> </tr> <tr> < colspan="10">Magnesium - 06:06</th> </tr> <tr> <td>Magnesium</td> < td>2.3 mg/dL</td> <td>1.8-2.5</td> </tr> <tr> < th colspan="10">eGFR - 03/28/17 06:06</th> </tr> <tr> <td >eGFR</td> <td>>60 mL/min</td> <td>>60</td> </tr > <tr> <th colspan="10">CBC With Platelet No Differential - 05:37</th> </tr> <tr> <td>HCT</td> <td> 36.9 %</td> <td>42.0-52.0</td> </tr> <tr> < td>HGB</td> <td>12.0 g/dL</td> <td>14.0-18.0</td> </tr > <tr> <td>MCH</td> <td>27.1 pg</td> <td>27.0- 32.0</td> </tr> <tr> <td>MCHC</td> <td>32.5 g/dL </td> <td>32.0-36.0</td> </tr> <tr> <td>MCV</td > <td>83.5 fL</td> <td>82.0-99.0</td> </tr> <tr > <td>MPV</td> <td>9.2 fL</td> <td>9.4-12.3</td> </tr> <tr> <td>Platelet Count</td> <td>221 K/uL</td > <td>150-400</td> </tr> <tr> <td>RBC</td> <td>4.42 10*6/uL</td> <td>4.60-6.20</td> </tr> <tr> <td>RDW</td> <td>14.0 %</td> <td>11.5-14.5</td> </tr> <tr> <td>WBC</td> <td>9.9 K/uL</td> <td>4.8-10.8</td> </tr> <tr> <th colspan="10">Basic Metabolic Panel (BMP) - 03/29/17 05:37</th> </tr> <tr> < td>Anion Gap</td> <td>7 mEq/L</td> <td>3-20</td> </tr> <tr> <td>BUN</td> <td>22 mg/dL</td> <td>4-20< /td> </tr> <tr> <td>Calcium</td> <td>9.1 mg/dL</ td> <td>8.6-10.0</td> </tr> <tr> <td>Chloride</ td> <td>98 mEq/L</td> <td>99-109</td> </tr> <tr > <td>CO2</td> <td>28 mEq/L</td> <td>22-32</td> </tr> <tr> <td>Creatinine</td> <td>1.09 mg/dL</td> <td>0.64-1.27</td> </tr> <tr> <td>Glucose</td> <td>62 mg/dL</td> <td>70-100</td> </tr> <tr> <td>Potassium</td> <td>4.3 mEq/L</td> <td>3.6-5.1</td> </tr> <tr> <td>Sodium</td> <td>133 mEq/L</td> <td>136-144</td> </tr> <tr> <th colspan="10"> eGFR - 03/29/17 05:37</th> </tr> <tr> <td>eGFR</td> <td>>60 mL/min</td> <td>>60</td> </tr> <tr> <th colspan="10">CBC With Platelet and Differential - 05/07/17 13:55</th > </tr> <tr> <td>Absolute Basophils</td> <td> 0.03 10*3/uL</td> <td>0.00-0.20</td> </tr> <tr> <td>Absolute Eosinophils</td> <td>0.04 10*3/uL</td> <td>0.00- 0.50</td> </tr> <tr> <td>Absolute Lymphocytes</td> <td>1.15 10*3/uL</td> <td>0.80-3.30</td> </tr> <tr> <td>Absolute Monocytes</td> <td>0.60 10*3/uL</td> <td >0.30-1.00</td> </tr> <tr> <td>Absolute Neutrophils</td> <td>4.22 10*3/uL</td> <td>1.90-7.00</td> </tr> <tr> <td>Basophils</td> <td>1 %</td> <td>0-2</td > </tr> <tr> <td>Eosinophils</td> <td>1 %</ td> <td>0-4</td> </tr> <tr> <td>HCT</td> <td>42.5 %</td> <td>42.0-52.0</td> </tr> <tr> <td>HGB</td> <td>14.4 g/dL</td> <td>14.0-18.0</td> </tr> <tr> <td>Immature Granulocytes</td> <td>0.3 &# 37;</td> <td>0.0-1.0</td> </tr> <tr> <td> Lymphocytes</td> <td>19 %</td> <td>20-46</td> </tr > <tr> <td>MCH</td> <td>27.9 pg</td> <td>27.0- 32.0</td> </tr> <tr> <td>MCHC</td> <td>33.9 g/dL </td> <td>32.0-36.0</td> </tr> <tr> <td>MCV</td > <td>82.4 fL</td> <td>82.0-99.0</td> </tr> <tr > <td>Monocytes</td> <td>10 %</td> <td>4-11</td> </tr> <tr> <td>MPV</td> <td>9.4 fL</td> <td>9.4-12.3</td> </tr> <tr> <td>Neutrophils</td> <td>70 %</td> <td>51-75</td> </tr> <tr> <td>Nucleated RBC Automated</td> <td>0.0 /100 WBC</td> <td /> </tr> <tr> <td>Platelet Count</td> <td>179 K/ uL</td> <td>150-400</td> </tr> <tr> <td>RBC</td > <td>5.16 10*6/uL</td> <td>4.60-6.20</td> </tr> <tr> <td>RDW</td> <td>15.5 %</td> <td>11.5-14.5 </td> </tr> <tr> <td>WBC</td> <td>6.1 K/uL</td> <td>4.8-10.8</td> </tr> <tr> <th colspan="10"> Comprehensive Metabolic Panel (CMP) - 08/25/17 13:55</th> </tr> < tr> <td>Albumin</td> <td>3.8 g/dL</td> <td>3.5-4.8</ td> </tr> <tr> <td>Alkaline Phosphatase</td> <td >75 U/L</td> <td>26-104</td> </tr> <tr> <td>ALT (SGPT)</td> <td>17 U/L</td> <td>17-63</td> </tr> <tr> <td>Anion Gap</td> <td>11 mEq/L</td> <td>3-20< /td> </tr> <tr> <td>AST (SGOT)</td> <td>22 U/L</ td> <td>15-41</td> </tr> <tr> <td>Bilirubin Total</td> <td>0.8 mg/dL</td> <td>0.2-1.2</td> </tr> <tr> <td>BUN</td> <td>13 mg/dL</td> <td>4-20</ td> </tr> <tr> <td>Calcium</td> <td>9.5 mg/dL</ td> <td>8.6-10.0</td> </tr> <tr> <td>Chloride</ td> <td>104 mEq/L</td> <td>99-109</td> </tr> <tr > <td>CO2</td> <td>23 mEq/L</td> <td>22-32</td> </tr> <tr> <td>Creatinine</td> <td>1.11 mg/dL</td> <td>0.64-1.27</td> </tr> <tr> <td>Globulin</td> <td>2.9 g/dL</td> <td>1.9-4.3</td> </tr> <tr> <td>Glucose</td> <td>98 mg/dL</td> <td>70-100</td> </tr> <tr> <td>Potassium</td> <td>3.5 mEq/L</td> <td>3.6-5.1</td> </tr> <tr> <td>Protein</td> <td>6.7 g/dL</td> <td>6.1-7.9</td> </tr> <tr> <td>Sodium</td> <td>138 mEq/L</td> <td>136-144</td> </tr> <tr> <th colspan="10">eGFR - 05/07/17 13:55</th> </tr> <tr> <td>eGFR</td> <td>>60 mL/min</td> <td>>60</td> </tr> <tr> <th colspan="10"> Troponin - 05/07/17 13:55</th> </tr> <tr> <td>Troponin</ td> <td><0.05 ng/mL</td> <td><0.06</td> </tr> <tr> <th colspan="10">Urinalysis with reflex microscopic - 16:38</th> </tr> <tr> <td>Appearance</td> <td >Cloudy NA</td> <td /> </tr> <tr> <td>Bilirubin< /td> <td>Negative NA</td> <td>Negative</td> </tr> <tr> <td>Blood</td> <td>Negative NA</td> <td> Negative</td> </tr> <tr> <td>Color</td> <td> Yellow NA</td> <td /> </tr> <tr> <td>Glucose, Urine</td> <td>Negative </td> <td>Negative</td> </tr> <tr> <td>Ketones</td> <td>Pos 1+ </td> <td> Negative</td> </tr> <tr> <td>Leukocyte Esterase</td> <td>Trace NA</td> <td>Negative</td> </tr> <tr> <td>Nitrites</td> <td>Negative NA</td> <td>Negative</td > </tr> <tr> <td>pH</td> <td>5.0 NA</td> <td>5.0-8.0</td> </tr> <tr> <td>Protein</td> <td>Pos 1+ NA</td> <td>Negative</td> </tr> <tr> <td>Specific [place]</td> <td>1.025 NA</td> <td>1.003-1.030</ td> </tr> <tr> <td>UA Collection type</td> <td> Clean Catch NA</td> <td /> </tr> <tr> <td> Urobilinogen</td> <td>4.0 mg/dL</td> <td><1.0</td> < /tr> <tr> <th colspan="10">Urine Microscopic - 05/07/17 16:38</ th> </tr> <tr> <td>Bacteria</td> <td>Occasional NA</td> <td /> </tr> <tr> <td>Crystals</td> <td>Ca Ox NA</td> <td /> </tr> <tr> <td> Epithelial Cells</td> <td>2 /HPF</td> <td /> </tr> <tr> <td>RBC, Urine</td> <td>10 /HPF</td> <td>0-2 </td> </tr> <tr> <td>Urine Mucus</td> <td> Present NA</td> <td /> </tr> <tr> <td>WBC, Urine </td> <td>20 /HPF</td> <td>0-4</td> </tr> <tr> <th colspan="10">Urine Drug Screen - 08/05/17 01:46</th> </tr> <tr> <td>Amph/Meth/Ecstasy</td> <td>Negative NA</td> <td /> </tr> <tr> <td>Barbiturates</td> <td>Negative NA</td> <td /> </tr> <tr> <td> Benzodiazepine</td> <td>Negative NA</td> <td /> </tr> <tr> <td>Cannabinoid</td> <td>Negative NA</td> <td /> </tr> <tr> <td>Cocaine</td> <td> Negative NA</td> <td /> </tr> <tr> <td>EDDP ( Methadone met.)</td> <td>Negative NA</td> <td /> </tr> <tr> <td>Opiate</td> <td>Negative NA</td> < td /> </tr> <tr> <td>Phencyclidine (PCP)</td> < td>Negative NA</td> <td /> </tr> <tr> < colspan="10">TSH with Reflex Free T4 - 08/05/17 01:46</th> </tr> < tr> <td>TSH with Reflex Free T4</td> <td>0.84 uIU/mL</td> <td>0.35-4.94</td> </tr> <tr> <th colspan="10">CBC With Platelet and Differential - 08/05/17 01:46</th> </tr> <tr> <td>Absolute Basophils</td> <td>0.03 10*3/uL</td> <td> 0.00-0.20</td> </tr> <tr> <td>Absolute Eosinophils</td> <td>0.15 10*3/uL</td> <td>0.00-0.50</td> </tr> < tr> <td>Absolute Lymphocytes</td> <td>1.44 10*3/uL</td> <td>0.80-3.30</td> </tr> <tr> <td>Absolute Monocytes< /td> <td>0.75 10*3/uL</td> <td>0.30-1.00</td> </tr> <tr> <td>Absolute Neutrophils</td> <td>7.74 10*3/uL</td> <td>1.90-7.00</td> </tr> <tr> <td>Basophils</td > <td>0 %</td> <td>0-2</td> </tr> <tr> <td>Eosinophils</td> <td>2 %</td> <td>0-4</td> </tr> <tr> <td>HCT</td> <td>46.8 %</td> <td>42.0-52.0</td> </tr> <tr> <td>HGB</td> <td> 15.8 g/dL</td> <td>14.0-18.0</td> </tr> <tr> <td >Immature Granulocytes</td> <td>0.3 %</td> <td>0.0-1.0</td > </tr> <tr> <td>Lymphocytes</td> <td>14 %</ td> <td>20-46</td> </tr> <tr> <td>MCH</td> <td>29.0 pg</td> <td>27.0-32.0</td> </tr> <tr> <td>MCHC</td> <td>33.8 g/dL</td> <td>32.0-36.0</td> </tr> <tr> <td>MCV</td> <td>86.0 fL</td> < td>82.0-99.0</td> </tr> <tr> <td>Monocytes</td> <td>7 %</td> <td>4-11</td> </tr> <tr> <td> MPV</td> <td>10.8 fL</td> <td>9.4-12.3</td> </tr> <tr> <td>Neutrophils</td> <td>76 %</td> <td>51 -75</td> </tr> <tr> <td>Nucleated RBC Automated</td> <td>0.0 /100 WBC</td> <td /> </tr> <tr> < td>Platelet Count</td> <td>208 K/uL</td> <td>150-400</td> </tr> <tr> <td>RBC</td> <td>5.44 10*6/uL</td> <td>4.60-6.20</td> </tr> <tr> <td>RDW</td> <td>13.7 %</td> <td>11.5-14.5</td> </tr> <tr> <td>WBC</td> <td>10.1 K/uL</td> <td>4.8-10.8</td> </ tr> <tr> < colspan="10">Urinalysis with reflex microscopic - 08/05/17 01:46</th> </tr> <tr> <td>Appearance</td> <td>Clear NA</td> <td [...] <td>Protein</td> <td>Negative NA</td> <td>Negative</td> </tr> <tr> <td>Specific [place]</td> <td><1.003 NA</td> <td> 1.003-1.030</td> </tr> <tr> <td>UA [...] <tr> <td>Magnesium</td> <td> 1.9 mg/dL</td> <td>1.8-2.5</td> </tr> <tr> <th colspan="10">Basic Metabolic Panel (BMP) - 08/06/17 05:04</th> </tr> <tr> <td>Anion Gap</td> <td>6 mEq/L</td> <td>3-20 </td> </tr> <tr> <td>BUN</td> <td>27 mg/dL</td> <td>4-20</td> </tr> <tr> <td>Calcium</td> <td>9.7 mg/dL</td> <td>8.6-10.0</td> </tr> <tr> <td>Chloride</td> <td>109 mEq/L</td> <td>99-109</td> </tr> <tr> <td>CO2</td> <td>24 mEq/L</td> <td>22-32</td> </tr> <tr> <td>Creatinine</td> <td>1.22 mg/dL</td> <td>0.64-1.27</td> </tr> <tr> <td>Glucose</td> <td>95 mg/dL</td> <td>70-100</td> < /tr> <tr> <td>Potassium</td> <td>4.1 mEq/L</td> <td>3.6-5.1</td> </tr> <tr> <td>Sodium</td> < td>139 mEq/L</td> <td>136-144</td> </tr> <tr> < th colspan="10">eGFR - 08/06/17 05:04</th> </tr> <tr> <td >eGFR</td> <td>60 mL/min</td> <td>>60</td> </tr> <tr> <th colspan="10">B12 and Folate - 08/06/17 18:44</th> </tr> <tr> <td>Folate</td> <td>9.3 ng/mL</td> <td>7.0-31.4</td> </tr> <tr> <td>Vitamin B12</td> <td>141 pg/mL</td> <td>213-816</td> </tr> <tr> <th colspan="10">HIV Antigen/Antibody Combo - 08/06/17 18:44</th> </tr > <tr> <td>HIV Antigen/Antibody Combo</td> <td> Negative NA</td> <td /> </tr> <tr> <th colspan= "10">CBC With Platelet and Differential - 08/27/17 14:10</th> </tr> <tr> <td>Absolute Basophils</td> <td>0.04 10*3/uL</td> <td>0.00-0.20</td> </tr> <tr> <td>Absolute Eosinophils</td> <td>0.24 10*3/uL</td> <td>0.00-0.50</td> </tr> <tr> <td>Absolute Lymphocytes</td> <td>1.51 10*3/uL</td> <td>0.80-3.30</td> </tr> <tr> <td> Absolute Monocytes</td> <td>0.70 10*3/uL</td> <td>0.30-1.00</ td> </tr> <tr> <td>Absolute Neutrophils</td> <td >5.96 10*3/uL</td> <td>1.90-7.00</td> </tr> <tr> <td>Basophils</td> <td>1 %</td> <td>0-2</td> </tr > <tr> <td>Eosinophils</td> <td>3 %</td> < td>0-4</td> </tr> <tr> <td>HCT</td> <td>43.5 &# 37;</td> <td>42.0-52.0</td> </tr> <tr> <td>HGB</ td> <td>14.4 g/dL</td> <td>14.0-18.0</td> </tr> <tr> <td>Immature Granulocytes</td> <td>0.2 %</td> <td>0.0-1.0</td> </tr> <tr> <td>Lymphocytes</td> <td>18 %</td> <td>20-46</td> </tr> <tr> <td>MCH</td> <td>28.6 pg</td> <td>27.0-32.0</td> </tr > <tr> <td>MCHC</td> <td>33.1 g/dL</td> <td> 32.0-36.0</td> </tr> <tr> <td>MCV</td> <td>86.3 fL</td> <td>82.0-99.0</td> </tr> <tr> <td> Monocytes</td> <td>8 %</td> <td>4-11</td> </tr> <tr> <td>MPV</td> <td>11.0 fL</td> <td>9.4-12.3< /td> </tr> <tr> <td>Neutrophils</td> <td>70 &#37 ;</td> <td>51-75</td> </tr> <tr> <td>Nucleated RBC Automated</td> <td>0.0 /100 WBC</td> <td /> </tr> <tr> <td>Platelet Count</td> <td>199 K/uL</td> <td>150-400</td> </tr> <tr> <td>RBC</td> <td> 5.04 10*6/uL</td> <td>4.60-6.20</td> </tr> <tr> <td>RDW</td> <td>13.7 %</td> <td>11.5-14.5</td> </ tr> <tr> <td>WBC</td> <td>8.5 K/uL</td> <td> 4.8-10.8</td> </tr> <tr> <th colspan="10">Comprehensive Metabolic Panel (CMP) - 08/27/17 14:10</th> </tr> <tr> < td>Albumin</td> <td>3.7 g/dL</td> <td>3.5-4.8</td> </tr > <tr> <td>Alkaline Phosphatase</td> <td>67 U/L</td> <td>26-104</td> </tr> <tr> <td>ALT (SGPT)</td> <td>22 U/L</td> <td>17-63</td> </tr> <tr> <td>Anion Gap</td> <td>7 mEq/L</td> <td>3-20</td> </ tr> <tr> <td>AST (SGOT)</td> <td>20 U/L</td> < td>15-41</td> </tr> <tr> <td>Bilirubin Total</td> <td>0.6 mg/dL</td> <td>0.2-1.2</td> </tr> <tr> <td>BUN</td> <td>28 mg/dL</td> <td>4-20</td> </tr> <tr> <td>Calcium</td> <td>9.2 mg/dL</td> <td> 8.6-10.0</td> </tr> <tr> <td>Chloride</td> <td> 104 mEq/L</td> <td>99-109</td> </tr> <tr> <td> CO2</td> <td>26 mEq/L</td> <td>22-32</td> </tr> <tr> <td>Creatinine</td> <td>1.14 mg/dL</td> <td>0.64 -1.27</td> </tr> <tr> <td>Globulin</td> <td>2.5 g/dL</td> <td>1.9-4.3</td> </tr> <tr> <td> Glucose</td> <td>110 mg/dL</td> <td>70-100</td> </tr> <tr> <td>Potassium</td> <td>4.4 mEq/L</td> <td >3.6-5.1</td> </tr> <tr> <td>Protein</td> <td> 6.2 g/dL</td> <td>6.1-7.9</td> </tr> <tr> <td> Sodium</td> <td>137 mEq/L</td> <td>136-144</td> </tr> <tr> < colspan="10">eGFR - 08/27/17 14:10</th> </tr> <tr> <td>eGFR</td> <td>>60 mL/min</td> <td>& gt;60</td> </tr> <tr> < colspan="10">Urine Microscopic - 09/02/17 15:15</th> </tr> <tr> <td>Bacteria</td> <td>None Seen NA</td> <td /> </tr> <tr> <td> Epithelial Cells</td> <td>0 /HPF</td> <td /> </tr> <tr> <td>RBC, Urine</td> <td>0 /HPF</td> <td>0-2< /td> </tr> <tr> <td>Urine Mucus</td> <td> Present NA</td> <td /> </tr> <tr> <td>WBC, Urine </td> <td>0 /HPF</td> <td>0-4</td> </tr> <tr> < colspan="10">Urinalysis with reflex microscopic - 09/02/17 15:15</th > </tr> <tr> <td>Appearance</td> <td>Sl Cloudy NA</td> <td /> </tr> <tr> <td>Bilirubin</td> <td>Negative NA</td> <td>Negative</td> </tr> <tr> <td>Blood</td> <td>Negative NA</td> <td>Negative</td > </tr> <tr> <td>Color</td> <td>Yellow NA</td> <td /> </tr> <tr> <td>Glucose, Urine</td> <td>Negative </td> <td>Negative</td> </tr> <tr> <td>Ketones</td> <td>Negative </td> <td>Negative</td> </tr> <tr> <td>Leukocyte Esterase</td> <td>Trace NA</td> <td>Negative</td> </tr> <tr> <td> Nitrites</td> <td>Negative NA</td> <td>Negative</td> </ tr> <tr> <td>pH</td> <td>6.0 NA</td> <td>5.0- 8.0</td> </tr> <tr> <td>Protein</td> <td> Negative NA</td> <td>Negative</td> </tr> <tr> < td>Specific [place]</td> <td>1.020 NA</td> <td>1.003-1.030</td > </tr> <tr> <td>UA Collection type</td> <td> Clean Catch NA</td> <td /> </tr> <tr> <td> Urobilinogen</td> <td>Negative mg/dL</td> <td><1.0</td> </tr> <tr> <th colspan="10">Valproic Acid - 09/10/17 08:08< /th> </tr> <tr> <td>Valproic Acid</td> <td>51 ug /mL</td> <td>50-125</td> </tr> <tr> <th colspan= "10">Ammonia - 09/16/17 11:26</th> </tr> <tr> <td>Ammonia </td> <td>32 umol/L</td> <td>9-35</td> </tr> <tr > <th colspan="10">Valproic Acid - 09/16/17 11:26</th> </tr> <tr> <td>Valproic Acid</td> <td>71 ug/mL</td> < td>50-125</td> </tr> <tr> <th colspan="10">Vitamin B12 - 09/16/17 11:26</th> </tr> <tr> <td>Vitamin B12</td> <td>449 pg/mL</td> <td>213-816</td> </tr> <tr> <th colspan="10">Urinalysis with reflex microscopic - 09/17/17 23:10</th> </tr> <tr> <td>Appearance</td> <td>Clear NA</td > <td /> </tr> <tr> <td>Bilirubin</td> <td>Negative NA</td> <td>Negative</td> </tr> <tr> <td>Blood</td> <td>Negative NA</td> <td>Negative</td> </tr> <tr> <td>Color</td> <td>Yellow NA</td> <td /> </tr> <tr> <td>Glucose, Urine</td> <td >Negative </td> <td>Negative</td> </tr> <tr> <td >Ketones</td> <td>Trace </td> <td>Negative</td> </tr> <tr> <td>Leukocyte Esterase</td> <td>Negative NA</td> <td>Negative</td> </tr> <tr> <td>Nitrites</td> <td>Negative NA</td> <td>Negative</td> </tr> <tr > <td>pH</td> <td>6.0 NA</td> <td>5.0-8.0</td> </tr> <tr> <td>Protein</td> <td>Negative NA</td> <td>Negative</td> </tr> <tr> <td>Specific [place]</ td> <td>1.030 NA</td> <td>1.003-1.030</td> </tr> <tr> <td>UA Collection type</td> <td>Clean Catch NA</td> <td /> </tr> <tr> <td>Urobilinogen</td> < td>Negative mg/dL</td> <td><1.0</td> </tr> <tr> <th colspan="10">CBC With Platelet No Differential - 09/22/17 05:25</th> </tr> <tr> <td>HCT</td> <td>43.4 %</td> <td>42.0-52.0</td> </tr> <tr> <td>HGB</td> < td>14.2 g/dL</td> <td>14.0-18.0</td> </tr> <tr> <td>MCH</td> <td>28.3 pg</td> <td>27.0-32.0</td> </tr> <tr> <td>MCHC</td> <td>32.7 g/dL</td> <td> 32.0-36.0</td> </tr> <tr> <td>MCV</td> <td>86.6 fL</td> <td>82.0-99.0</td> </tr> <tr> <td>MPV</ td> <td>9.6 fL</td> <td>9.4-12.3</td> </tr> <tr > <td>Platelet Count</td> <td>213 K/uL</td> <td>150- 400</td> </tr> <tr> <td>RBC</td> <td>5.01 10*6/ uL</td> <td>4.60-6.20</td> </tr> <tr> <td>RDW</ td> <td>14.2 %</td> <td>11.5-14.5</td> </tr> <tr> <td>WBC</td> <td>7.0 K/uL</td> <td>4.8-10.8</ td> </tr> <tr> <th colspan="10">Ammonia - 09/22/17 05:25< /th> </tr> <tr> <td>Ammonia</td> <td>12 umol/L</ td> <td>9-35</td> </tr> <tr> <th colspan="10"> Comprehensive Metabolic Panel (CMP) - 09/22/17 05:25</th> </tr> < tr> <td>Albumin</td> <td>3.2 g/dL</td> <td>3.5-4.8</ td> </tr> <tr> <td>Alkaline Phosphatase</td> <td >54 U/L</td> <td>26-104</td> </tr> <tr> <td>ALT (SGPT)</td> <td>20 U/L</td> <td>17-63</td> </tr> <tr> <td>Anion Gap</td> <td>8 mEq/L</td> <td>3-20</ td> </tr> <tr> <td>AST (SGOT)</td> <td>18 U/L</ td> <td>15-41</td> </tr> <tr> <td>Bilirubin Total</td> <td>0.3 mg/dL</td> <td>0.2-1.2</td> </tr> <tr> <td>BUN</td> <td>27 mg/dL</td> <td>4-20</ td> </tr> <tr> <td>Calcium</td> <td>9.5 mg/dL</ td> <td>8.6-10.0</td> </tr> <tr> <td>Chloride</ td> <td>104 mEq/L</td> <td>99-109</td> </tr> <tr > <td>CO2</td> <td>28 mEq/L</td> <td>22-32</td> </tr> <tr> <td>Creatinine</td> <td>1.02 mg/dL</td> <td>0.64-1.27</td> </tr> <tr> <td>Globulin</td> <td>3.4 g/dL</td> <td>1.9-4.3</td> </tr> <tr> <td>Glucose</td> <td>105 mg/dL</td> <td>70-100</td> </tr> <tr> <td>Potassium</td> <td>3.9 mEq/L</td > <td>3.6-5.1</td> </tr> <tr> <td>Protein</td> <td>6.6 g/dL</td> <td>6.1-7.9</td> </tr> <tr> <td>Sodium</td> <td>140 mEq/L</td> <td>136-144</td> </tr> <tr> <th colspan="10">eGFR - 09/22/17 05:25</th> </tr> <tr> <td>eGFR</td> <td>>60 mL/min</td> <td>>60</td> </tr> <tr> <th colspan="10">CBC With Platelet No Differential - 09/28/17 06:50</th> </tr> <tr> <td>HCT</td> <td>42.5 %</td> <td>42.0-52.0</td> </tr> <tr> <td>HGB</td> <td>13.8 g/dL</td> <td>14.0-18.0</td> </tr> <tr> <td>MCH</td> < td>28.3 pg</td> <td>27.0-32.0</td> </tr> <tr> < td>MCHC</td> <td>32.5 g/dL</td> <td>32.0-36.0</td> </tr > <tr> <td>MCV</td> <td>87.1 fL</td> <td>82.0- 99.0</td> </tr> <tr> <td>MPV</td> <td>9.6 fL</td > <td>9.4-12.3</td> </tr> <tr> <td>Platelet Count</td> <td>147 K/uL</td> <td>150-400</td> </tr> <tr> <td>RBC</td> <td>4.88 10*6/uL</td> <td>4.60 -6.20</td> </tr> <tr> <td>RDW</td> <td>14.3 &#37 ;</td> <td>11.5-14.5</td> </tr> <tr> <td>WBC</td > <td>8.5 K/uL</td> <td>4.8-10.8</td> </tr> <tr > <th colspan="10">Basic Metabolic Panel (BMP) - 09/28/17 06:50</th> </tr> <tr> <td>Anion Gap</td> <td>6 mEq/L</td> <td>3-20</td> </tr> <tr> <td>BUN</td> < td>25 mg/dL</td> <td>4-20</td> </tr> <tr> <td> Calcium</td> <td>9.3 mg/dL</td> <td>8.6-10.0</td> </tr > <tr> <td>Chloride</td> <td>101 mEq/L</td> < td>99-109</td> </tr> <tr> <td>CO2</td> <td>29 mEq/L</td> <td>22-32</td> </tr> <tr> <td> Creatinine</td> <td>0.99 mg/dL</td> <td>0.64-1.27</td> </tr> <tr> <td>Glucose</td> <td>91 mg/dL</td> <td>70-100</td> </tr> <tr> <td>Potassium</td> < td>3.7 mEq/L</td> <td>3.6-5.1</td> </tr> <tr> < td>Sodium</td> <td>136 mEq/L</td> <td>136-144</td> </tr > <tr> <th colspan="10">Valproic Acid - 09/28/17 06:50</th> </tr> <tr> <td>Valproic Acid</td> <td>45 ug/mL</td > <td>50-125</td> </tr> <tr> <th colspan="10"> eGFR - 09/28/17 06:50</th> </tr> <tr> <td>eGFR</td> <td>>60 mL/min</td> <td>>60</td> </tr> <tr> <th colspan="10">Valproic Acid - 10/04/17 18:46</th> </tr> <tr> <td>Valproic Acid</td> <td>39 ug/mL</td> <td> 50-125</td> </tr> <tr> <th colspan="10">Valproic Acid - 10/12/17 18:20</th> </tr> <tr> <td>Valproic Acid</td> <td>21 ug/mL</td> <td>50-125</td> </tr> <tr> <th colspan="10">Glucose NPT - 10/19/17 16:08</th> </tr> <tr > <td>Glucose NPT</td> <td>106 mg/dL</td> <td>70-100 </td> </tr> <tr> < colspan="10">CBC With Platelet No Differential - 11/01/17 07:28</th> </tr> <tr> <td>HCT</td > <td>39.0 %</td> <td>42.0-52.0</td> </tr> < tr> <td>HGB</td> <td>12.6 g/dL</td> <td>14.0-18.0</td > </tr> <tr> <td>MCH</td> <td>29.0 pg</td> <td>27.0-32.0</td> </tr> <tr> <td>MCHC</td> <td>32.3 g/dL</td> <td>32.0-36.0</td> </tr> <tr> <td>MCV</td> <td>89.9 fL</td> <td>82.0-99.0</td> </ tr> <tr> <td>MPV</td> <td>10.6 fL</td> <td>9.4 -12.3</td> </tr> <tr> <td>Platelet Count</td> < td>165 K/uL</td> <td>150-400</td> </tr> <tr> <td >RBC</td> <td>4.34 10*6/uL</td> <td>4.60-6.20</td> </tr > <tr> <td>RDW</td> <td>16.3 %</td> <td> 11.5-14.5</td> </tr> <tr> <td>WBC</td> <td>7.3 K /uL</td> <td>4.8-10.8</td> </tr> <tr> <th colspan="10">Renal Function Panel - 11/01/17 07:28</th> </tr> <tr > <td>Albumin</td> <td>3.1 g/dL</td> <td>3.5-4.8</td > </tr> <tr> <td>Anion Gap</td> <td>5 mEq/L</td > <td>3-20</td> </tr> <tr> <td>BUN</td> <td>26 mg/dL</td> <td>4-20</td> </tr> <tr> <td >Calcium</td> <td>8.9 mg/dL</td> <td>8.6-10.0</td> </tr > <tr> <td>Chloride</td> <td>104 mEq/L</td> < td>99-109</td> </tr> <tr> <td>CO2</td> <td>28 mEq/L</td> <td>22-32</td> </tr> <tr> <td> Creatinine</td> <td>1.12 mg/dL</td> <td>0.64-1.27</td> </tr> <tr> <td>Glucose</td> <td>89 mg/dL</td> <td>70-100</td> </tr> <tr> <td>Phosphorus</td> < td>3.2 mg/dL</td> <td>2.4-4.7</td> </tr> <tr> < td>Potassium</td> <td>4.4 mEq/L</td> <td>3.6-5.1</td> < /tr> <tr> <td>Sodium</td> <td>137 mEq/L</td> < td>136-144</td> </tr> <tr> <th colspan="10">eGFR - 07:28</th> </tr> <tr> <td>eGFR</td> <td>> 60 mL/min</td> <td>>60</td> </tr> <tr> <th colspan="10">CBC With Platelet No Differential - 11/30/17 10:49</th> </tr > <tr> <td>HCT</td> <td>43.7 %</td> <td> 42.0-52.0</td> </tr> <tr> <td>HGB</td> <td>14.5 g/dL</td> <td>14.0-18.0</td> </tr> <tr> <td>MCH< /td> <td>30.3 pg</td> <td>27.0-32.0</td> </tr> < tr> <td>MCHC</td> <td>33.2 g/dL</td> <td>32.0-36.0</ td> </tr> <tr> <td>MCV</td> <td>91.2 fL</td> <td>82.0-99.0</td> </tr> <tr> <td>MPV</td> <td>10.7 fL</td> <td>9.4-12.3</td> </tr> <tr> <td>Platelet Count</td> <td>167 K/uL</td> <td>150-400</td> </tr> <tr> <td>RBC</td> <td>4.79 10*6/uL</td> <td>4.60-6.20</td> </tr> <tr> <td>RDW</td> <td>14.9 %</td> <td>11.5-14.5</td> </tr> <tr> <td>WBC</td> <td>7.5 K/uL</td> <td>4.8-10.8</td> </tr> <tr> <th colspan="10">Comprehensive Metabolic Panel (CMP ) - 11/30/17 10:49</th> </tr> <tr> <td>Albumin</td> <td>4.0 g/dL</td> <td>3.5-4.8</td> </tr> <tr> <td>Alkaline Phosphatase</td> <td>36 U/L</td> <td>26-104</ td> </tr> <tr> <td>ALT (SGPT)</td> <td>23 U/L</ td> <td>17-63</td> </tr> <tr> <td>Anion Gap</td > <td>8 mEq/L</td> <td>3-20</td> </tr> <tr> <td>AST (SGOT)</td> <td>18 U/L</td> <td>15-41</td> </tr> <tr> <td>Bilirubin Total</td> <td>0.6 mg/dL</ td> <td>0.2-1.2</td> </tr> <tr> <td>BUN</td> <td>31 mg/dL</td> <td>4-20</td> </tr> <tr> <td>Calcium</td> <td>9.7 mg/dL</td> <td>8.6-10.0</td> </tr> <tr> <td>Chloride</td> <td>101 mEq/L</td> <td>99-109</td> </tr> <tr> <td>CO2</td> < td>31 mEq/L</td> <td>22-32</td> </tr> <tr> <td> Creatinine</td> <td>1.20 mg/dL</td> <td>0.64-1.27</td> </tr> <tr> <td>Globulin</td> <td>2.4 g/dL</td> <td>1.9-4.3</td> </tr> <tr> <td>Glucose</td> < td>97 mg/dL</td> <td>70-100</td> </tr> <tr> <td> Potassium</td> <td>4.8 mEq/L</td> <td>3.6-5.1</td> </tr > <tr> <td>Protein</td> <td>6.4 g/dL</td> <td> 6.1-7.9</td> </tr> <tr> <td>Sodium</td> <td>140 mEq/L</td> <td>136-144</td> </tr> <tr> <th colspan="10">eGFR - 11/30/17 10:49</th> </tr> <tr> <td> eGFR</td> <td>>60 mL/min</td> <td>>60</td> </tr> <tr> <th colspan="10">Complete blood count (CBC) with automated white blood cell (WBC) differential - 12/13/17 13:18</th> </tr > <tr> <td>Blood leukocytes automated count (number/volume)</td > <td>9.1 10*3/uL</td> <td>4.3-11.0</td> </tr> < tr> <td>Blood erythrocytes automated count (number/volume)</td> <td>4.81 10*6/uL</td> <td>4.35-5.85</td> </tr> <tr> <td>Venous blood hemoglobin measurement (mass/volume)</td> <td> 14.7 g/dL</td> <td>13.3-17.7</td> </tr> <tr> <td >Blood hematocrit (volume fraction)</td> <td>44 %</td> <td >40-54</td> </tr> <tr> <td>Automated erythrocyte mean corpuscular volume</td> <td>91 [foz_us]</td> <td>80-99</td> </tr> <tr> <td>Automated erythrocyte mean corpuscular hemoglobin (mass per erythrocyte)</td> <td>31 pg</td> <td>25- 34</td> </tr> <tr> <td>Automated erythrocyte mean corpuscular hemoglobin concentration measurement (mass/volume)</td> <td >34 g/dL</td> <td>32-36</td> </tr> <tr> <td> Automated erythrocyte distribution width ratio</td> <td>14.2 %</td > <td>10.0-14.5</td> </tr> <tr> <td>Automated blood platelet count (count/volume)</td> <td>155 10*3/uL</td> <td>130-400</td> </tr> <tr> <td>Automated blood platelet mean volume measurement</td> <td>10.5 [foz_us]</td> <td>7.4- 10.4</td> </tr> <tr> <td>Automated blood neutrophils/100 leukocytes</td> <td>69 %</td> <td>42-75</td> </tr> <tr> <td>Automated blood lymphocytes/100 leukocytes</td> <td>16 %</td> <td>12-44</td> </tr> <tr> <td>Blood monocytes/100 leukocytes</td> <td>13 %</td> <td> 0-12</td> </tr> <tr> <td>Automated blood eosinophils/100 leukocytes</td> <td>2 %</td> <td>0-10</td> </tr> <tr> <td>Automated blood basophils/100 leukocytes</td> < td>0 %</td> <td>0-10</td> </tr> <tr> <td> Blood neutrophils automated count (number/volume)</td> <td>6.3 10*3</td > <td>1.8-7.8</td> </tr> <tr> <td>Blood lymphocytes automated count (number/volume)</td> <td>1.4 10*3</td> <td>1.0-4.0</td> </tr> <tr> <td>Blood monocytes automated count (number/volume)</td> <td>1.2 10*3</td> <td>0.0 -1.0</td> </tr> <tr> <td>Automated eosinophil count</td> <td>0.2 10*3/uL</td> <td>0.0-0.3</td> </tr> <tr > <td>Automated blood basophil count (count/volume)</td> <td> 0.0 10*3/uL</td> <td>0.0-0.1</td> </tr> <tr> < colspan="10">Comprehensive metabolic panel - 12/13/17 13:18</th> </tr > <tr> <td>Serum or plasma sodium measurement (moles/volume)</td > <td>140 mmol/L</td> <td>135-145</td> </tr> <tr > <td>Serum or plasma potassium measurement (moles/volume)</td> <td>4.8 mmol/L</td> <td>3.6-5.0</td> </tr> <tr> <td>Serum or plasma chloride measurement (moles/volume)</td> <td> 105 mmol/L</td> <td>98-107</td> </tr> <tr> <td> Carbon dioxide</td> <td>28 mmol/L</td> <td>21-32</td> < /tr> <tr> <td>Serum or plasma anion gap determination (moles/ volume)</td> <td>7 mmol/L</td> <td>5-14</td> </tr> <tr> <td>Serum or plasma urea nitrogen measurement (mass/volume)</ td> <td>30 mg/dL</td> <td>7-18</td> </tr> <tr> <td>Serum or plasma creatinine measurement (mass/volume)</td> <td>0.96 mg/dL</td> <td>0.60-1.30</td> </tr> <tr> <td>Serum or plasma urea nitrogen/creatinine mass ratio</td> <td>31 </td> <td>NRG</td> </tr> <tr> <td>Serum or plasma creatinine measurement with calculation of estimated glomerular filtration rate</td> <td>> </td> <td>NRG</td> </tr> <tr> <td>Serum or plasma glucose measurement (mass/volume)</td > <td>98 mg/dL</td> <td>70-105</td> </tr> <tr> <td>Serum or plasma calcium measurement (mass/volume)</td> <td >9.6 mg/dL</td> <td>8.5-10.1</td> </tr> <tr> <td >Serum or plasma total bilirubin measurement (mass/volume)</td> <td> 0.3 mg/dL</td> <td>0.1-1.0</td> </tr> <tr> <td> Serum or plasma alkaline phosphatase measurement (enzymatic activity/volume)</td > <td>41 U/L</td> <td>40-136</td> </tr> <tr> <td>Serum or plasma aspartate aminotransferase measurement (enzymatic activity/volume)</td> <td>13 U/L</td> <td>5-34</td> </ tr> <tr> <td>Serum or plasma alanine aminotransferase measurement (enzymatic activity/volume)</td> <td>21 U/L</td> < td>0-55</td> </tr> <tr> <td>Serum or plasma protein measurement (mass/volume)</td> <td>6.8 g/dL</td> <td>6.4-8.2</ td> </tr> <tr> <td>Serum or plasma albumin measurement ( mass/volume)</td> <td>4.2 g/dL</td> <td>3.2-4.5</td> </ tr> <tr> < colspan="10">[id number] - 12/13/17 13:18</th> < /tr> <tr> <td>[id number]</td> <td>55.5 ug/mL</td> <td>50.0-100.0</td> </tr> <tr> <th colspan="10"> Complete urinalysis with reflex to culture - 12/13/17 15:47</th> </tr> <tr> <td>Urine color determination</td> <td>YELLOW </td > <td>NRG</td> </tr> <tr> <td>Urine clarity determination</td> <td>CLEAR </td> <td>NRG</td> </tr> <tr> <td>Urine pH measurement by test strip</td> <td>8 </td> <td>5-9</td> </tr> <tr> <td>Specific gravity of urine by test strip</td> <td>1.010 </td> <td>1.016- 1.022</td> </tr> <tr> <td>Urine protein assay by test strip, semi-quantitative</td> <td>NEGATIVE </td> <td>NEGATIVE< /td> </tr> <tr> <td>Urine glucose detection by automated test strip</td> <td>NEGATIVE </td> <td>NEGATIVE</td> </ tr> <tr> <td>Erythrocytes detection in urine sediment by light microscopy</td> <td>NEGATIVE </td> <td>NEGATIVE</td> </ tr> <tr> <td>Urine ketones detection by automated test strip</td > <td>NEGATIVE </td> <td>NEGATIVE</td> </tr> <tr > <td>Urine nitrite detection by test strip</td> <td>NEGATIVE </td> <td>NEGATIVE</td> </tr> <tr> <td>Urine total bilirubin detection by test strip</td> <td>NEGATIVE </td> <td>NEGATIVE</td> </tr> <tr> <td>Urine urobilinogen measurement by automated test strip (mass/volume)</td> <td>NORMAL </td > <td>NORMAL</td> </tr> <tr> <td>Urine leukocyte esterase detection by dipstick</td> <td>NEGATIVE </td> <td>NEGATIVE</td> </tr> <tr> <td>Automated urine sediment erythrocyte count by microscopy (number/high power field)</td> <td>RARE </td> <td>NRG</td> </tr> <tr> <td> Automated urine sediment leukocyte count by microscopy (number/high power field) </td> <td>RARE </td> <td>NRG</td> </tr> <tr> <td>Bacteria detection in urine sediment by light microscopy</td> <td>NEGATIVE </td> <td>NRG</td> </tr> <tr> < td>Squamous epithelial cells detection in urine sediment by light microscopy</td > <td>NONE </td> <td>NRG</td> </tr> <tr> <td>Crystals detection in urine sediment by light microscopy</td> < td>NONE </td> <td>NRG</td> </tr> <tr> <td>Casts detection in urine sediment by light microscopy</td> <td>NONE </td> <td>NRG</td> </tr> <tr> <td>Mucus detection in urine sediment by light microscopy</td> <td>NEGATIVE </td> <td >NRG</td> </tr> <tr> <td>Complete urinalysis with reflex to culture</td> <td>NO </td> <td>NRG</td> </tr> </ tbody> </table> </text> <entry> <organizer moodCode="EVN" classCode= "BATTERY"> <templateId root="2.16.840.1.280646.10.20.22.4.1" /> <id nullFlavor="NA" /> <code codeSystem="local" code="CBCD" displayName="CBC W/ DIFF" /> <statusCode code="completed" /> <component> < observation moodCode="EVN" classCode="OBS"> <templateId root= "10.29.840.1.524682.10.4.2" /> <id nullFlavor="NA" /> < code codeSystem="local" code="CBCCOM" displayName="COMMENT" /> < statusCode code="completed" /> <effectiveTime value="" /> <value unit="" xsi:type="PQ" value="REVIEWED" /> < referenceRange> <observationRange> <text /> < /observationRange> </referenceRange> </observation> </ component> <component> <observation moodCode="EVN" classCode="OBS"> <templateId root="840.1.954067.07.02.22.4.2" /> <id nullFlavor="NA" /> <code codeSystem="local" code="DB" displayName= "DOHLE BODIES" /> <statusCode code="completed" /> < effectiveTime value="" /> <value unit="" xsi:type="PQ" value="NOTED" /> <referenceRange> <observationRange> <text /> </observationRange> </referenceRange> </observation> </component> <component> <observation moodCode ="EVN" classCode="OBS"> <templateId root= "840.1.080447.10.4.2" /> <id nullFlavor="NA" /> < code codeSystem="local" code="GR#" displayName="GRANULOCYTE #" /> < statusCode code="completed" /> <effectiveTime value="" /> <value unit="k/cumm" xsi:type="PQ" value="16.6" /> < interpretationCode codeSystem="local" code="*" /> <referenceRange> <observationRange> <text>2.0-9.0</text> </ observationRange> </referenceRange> </observation> </ component> <component> <observation moodCode="EVN" classCode="OBS"> <templateId root="10.29.840.1.883110.10.20.22.4.2" /> <id nullFlavor="NA" /> <code codeSystem="local" code="GR%" displayName= "GRANULOCYTE %" /> <statusCode code="completed" /> < effectiveTime value="082138275222" /> <value unit="%" xsi:type="PQ " value="91" /> <interpretationCode codeSystem="local" code="*" /> <referenceRange> <observationRange> <text>50-75</ text> </observationRange> </referenceRange> </ observation> </component> <component> <observation moodCode= "EVN" classCode="OBS"> <templateId root="10.29.840.1.760381.10.22.4.2 " /> <id nullFlavor="NA" /> <code codeSystem="local" code="LY# " displayName="LYMPHOCYTE #" /> <statusCode code="completed" /> <effectiveTime value="949399588614" /> <value unit="k/cumm" xsi:type ="PQ" value="0.3" /> <interpretationCode codeSystem="local" code="*" / > <referenceRange> <observationRange> <text>1.0 -4.0</text> </observationRange> </referenceRange> </ observation> </component> <component> <observation moodCode= "EVN" classCode="OBS"> <templateId root="10.29.840.1.285110.10.20.22.4.2 " /> <id nullFlavor="NA" /> <code codeSystem="local" code="LY& #37;" displayName="LYMPHOCYTE %" /> <statusCode code="completed" / > <effectiveTime value="671397713324" /> <value unit="%" xsi:type="PQ" value="2" /> <interpretationCode codeSystem="local" code= "*" /> <referenceRange> <observationRange> < text>20-30</text> </observationRange> </referenceRange> </observation> </component> <component> <observation moodCode="EVN" classCode="OBS"> <templateId root= "2.16.840.1.269795.10...4.2" /> <id nullFlavor="NA" /> < code codeSystem="local" code="MCH" displayName="MEAN CELL HGB" /> < statusCode code="completed" /> <effectiveTime value="242956293978" /> <value unit="pg" xsi:type="PQ" value="27.3" /> <referenceRange > <observationRange> <text>27.0-33.0</text> < /observationRange> </referenceRange> </observation> </ component> <component> <observation moodCode="EVN" classCode="OBS"> <templateId root="2.16.840.1.602856.10..22.4.2" /> <id nullFlavor="NA" /> <code codeSystem="local" code="MCHC" displayName= "MEAN CELL HGB CONCENTRATION" /> <statusCode code="completed" /> <effectiveTime value="918308882796" /> <value unit="g/dL" xsi:type= "PQ" value="34.2" /> <referenceRange> <observationRange> <text>32.0-37.0</text> </observationRange> </ referenceRange> </observation> </component> <component> <observation moodCode="EVN" classCode="OBS"> <templateId root= "216.840.1.615728.10..4.2" /> <id nullFlavor="NA" /> < code codeSystem="local" code="MCV" displayName="MEAN CELL VOLUME" /> < statusCode code="completed" /> <effectiveTime value="" /> <value unit="fl" xsi:type="PQ" value="79.6" /> < interpretationCode codeSystem="local" code="*" /> <referenceRange> <observationRange> <text>80.0-100.0</text> </ observationRange> </referenceRange> </observation> </ component> <component> <observation moodCode="EVN" classCode="OBS"> <templateId root="10.29.840.1.266325.07.02.22.4.2" /> <id nullFlavor="NA" /> <code codeSystem="local" code="MO#" displayName= "MONOCYTE #" /> <statusCode code="completed" /> < effectiveTime value="847335029173" /> <value unit="k/cumm" xsi:type="PQ " value="1.3" /> <interpretationCode codeSystem="local" code="*" /> <referenceRange> <observationRange> <text>0.1-1.0 </text> </observationRange> </referenceRange> </ observation> </component> <component> <observation moodCode= "EVN" classCode="OBS"> <templateId root="16.840.1.611106.22.4.2 " /> <id nullFlavor="NA" /> <code codeSystem="local" code="MO& #37;" displayName="MONOCYTE %" /> <statusCode code="completed" /> <effectiveTime value="748990650404" /> <value unit="%" xsi :type="PQ" value="7" /> <interpretationCode codeSystem="local" code="* " /> <referenceRange> <observationRange> <text> 4-6</text> </observationRange> </referenceRange> </ observation> </component> <component> <observation moodCode= "EVN" classCode="OBS"> <templateId root="216.840.1.524980.10..22.4.2 " /> <id nullFlavor="NA" /> <code codeSystem="local" code="RBC " displayName="RED BLOOD CELL" /> <statusCode code="completed" /> <effectiveTime value="818871198660" /> <value unit="m/cumm" xsi: type="PQ" value="5.54" /> <referenceRange> <observationRange > <text>4.00-6.00</text> </observationRange> </ referenceRange> </observation> </component> <component> <observation moodCode="EVN" classCode="OBS"> <templateId root= "216.840.1.509714.10.20.22.4.2" /> <id nullFlavor="NA" /> < code codeSystem="local" code="RDW" displayName="RED CELL DISTRIBUTION WIDTH" /> <statusCode code="completed" /> <effectiveTime value= "153166558817" /> <value unit="%" xsi:type="PQ" value="13.5" /> <referenceRange> <observationRange> <text>11.0- 15.6</text> </observationRange> </referenceRange> </ observation> </component> <component> <observation moodCode= "EVN" classCode="OBS"> <templateId root="216.840.1.051626.10.2022.4.2 " /> <id nullFlavor="NA" /> <code codeSystem="local" code="WBC " displayName="WHITE BLOOD CELL" /> <statusCode code="completed" /> <effectiveTime value="801204781970" /> <value unit="k/cumm" xsi: type="PQ" value="18.2" /> <interpretationCode codeSystem="local" code= "*" /> <referenceRange> <observationRange> < text>5.0-10.0</text> </observationRange> </referenceRange> </observation> </component> <component> <observation moodCode="EVN" classCode="OBS"> <templateId root= "10.29.840.1.112312.22.4.2" /> <id nullFlavor="NA" /> < code codeSystem="local" code="HGBT" displayName="HEMOGLOBIN" /> < statusCode code="completed" /> <effectiveTime value="158192233890" /> <value unit="gm/dL" xsi:type="PQ" value="15.1" /> < referenceRange> <observationRange> <text>14.0-18.0</text > </observationRange> </referenceRange> </observation > </component> <component> <observation moodCode="EVN" classCode="OBS"> <templateId root="10.29.840.1.267715.10.20.22.4.2" /> <id nullFlavor="NA" /> <code codeSystem="local" code="HCTT" displayName="HEMATOCRIT" /> <statusCode code="completed" /> < effectiveTime value="221544211436" /> <value unit="%" xsi:type="PQ " value="44.1" /> <referenceRange> <observationRange> <text>40.0-54.0</text> </observationRange> </ referenceRange> </observation> </component> <component> <observation moodCode="EVN" classCode="OBS"> <templateId root= "216.840.1.276851.10..22.4.2" /> <id nullFlavor="NA" /> < code codeSystem="local" code="PLT" displayName="PLATELET COUNT" /> < statusCode code="completed" /> <effectiveTime value="248831286936" /> <value unit="k/cumm" xsi:type="PQ" value="102" /> < interpretationCode codeSystem="local" code="*" /> <referenceRange> <observationRange> <text>150-400</text> </ observationRange> </referenceRange> </observation> </ component> </organizer> </entry> <entry> <organizer moodCode="EVN" classCode="BATTERY"> <templateId root="216.840.1.728265.10..22.4.1" /> <id nullFlavor="NA" /> <code codeSystem="local" code="ALC" displayName ="ALCOHOL (ETHANOL) SERUM" /> <statusCode code="completed" /> < component> <observation moodCode="EVN" classCode="OBS"> < templateId root="16.840.1.571003.10..22.4.2" /> <id nullFlavor="NA " /> <code codeSystem="local" code="ALC" displayName="ALCOHOL (ETHANOL ) SERUM" /> <statusCode code="completed" /> <effectiveTime value="061810554816" /> <value unit="mg/dL" xsi:type="PQ" value="< 10" /> <referenceRange> <observationRange> < text> < 10</text> </observationRange> </referenceRange> </observation> </component> </organizer> </entry> <entry> < organizer moodCode="EVN" classCode="BATTERY"> <templateId root= "16.840.1.742961.10..22.4.1" /> <id nullFlavor="NA" /> <code codeSystem="local" code="iCHEM8" displayName="CHEM/HEM PROFILE-BEDSIDE" /> <statusCode code="completed" /> <component> <observation moodCode= "EVN" classCode="OBS"> <templateId root="10.29.840.1.717858.10...4.2 " /> <id nullFlavor="NA" /> <code codeSystem="local" code="K" displayName="POTASSIUM" /> <statusCode code="completed" /> < effectiveTime value="577432595331" /> <value unit="mmol/L" xsi:type="PQ " value="3.5" /> <referenceRange> <observationRange> <text>3.5-5.3</text> </observationRange> </ referenceRange> </observation> </component> <component> <observation moodCode="EVN" classCode="OBS"> <templateId root= "10.29.840.1.775441.10...4.2" /> <id nullFlavor="NA" /> < code codeSystem="local" code="CMETHOD" displayName="METHOD" /> < statusCode code="completed" /> <effectiveTime value="492312943347" /> <value unit="" xsi:type="PQ" value="Bedside" /> < referenceRange> <observationRange> <text /> < /observationRange> </referenceRange> </observation> </ component> <component> <observation moodCode="EVN" classCode="OBS"> <templateId root="840.1.831880.10..22.4.2" /> <id nullFlavor="NA" /> <code codeSystem="local" code="GAP" displayName= "ANION GAP" /> <statusCode code="completed" /> <effectiveTime value="292137916292" /> <value unit="mmol/L" xsi:type="PQ" value="19" / > <referenceRange> <observationRange> <text>10- 20</text> </observationRange> </referenceRange> </ observation> </component> <component> <observation moodCode= "EVN" classCode="OBS"> <templateId root="216.840.1.928229.07.02.22.4.2 " /> <id nullFlavor="NA" /> <code codeSystem="local" code= "HMETHOD" displayName="METHOD" /> <statusCode code="completed" /> <effectiveTime value="636197981771" /> <value unit="" xsi:type="PQ " value="Bedside" /> <referenceRange> <observationRange> <text /> </observationRange> </referenceRange> </observation> </component> <component> <observation moodCode="EVN" classCode="OBS"> <templateId root= "216.840.1.960739.07.02..4.2" /> <id nullFlavor="NA" /> < code codeSystem="local" code="GLU" displayName="GLUCOSE" /> < statusCode code="completed" /> <effectiveTime value="643951493882" /> <value unit="mg/dL" xsi:type="PQ" value="119" /> < interpretationCode codeSystem="local" code="*" /> <referenceRange> <observationRange> <text>70-99</text> </ observationRange> </referenceRange> </observation> </ component> <component> <observation moodCode="EVN" classCode="OBS"> <templateId root="216.840.1.988912.10..4.2" /> <id nullFlavor="NA" /> <code codeSystem="local" code="BUN" displayName= "BLOOD UREA NITROGEN" /> <statusCode code="completed" /> < effectiveTime value="674146702402" /> <value unit="mg/dL" xsi:type="PQ " value="40" /> <interpretationCode codeSystem="local" code="*" /> <referenceRange> <observationRange> <text>7-20</ text> </observationRange> </referenceRange> </ observation> </component> <component> <observation moodCode= "EVN" classCode="OBS"> <templateId root="16.840.1.212860.07.02.22.4.2 " /> <id nullFlavor="NA" /> <code codeSystem="local" code= "CREAT" displayName="CREATININE" /> <statusCode code="completed" /> <effectiveTime value="348442477109" /> <value unit="mg/dL" xsi: type="PQ" value="1.5" /> <interpretationCode codeSystem="local" code="* " /> <referenceRange> <observationRange> <text> 0.7-1.3</text> </observationRange> </referenceRange> </observation> </component> <component> <observation moodCode= "EVN" classCode="OBS"> <templateId root="216.840.1.142076..22.4.2 " /> <id nullFlavor="NA" /> <code codeSystem="local" code= "HGBT" displayName="HEMOGLOBIN" /> <statusCode code="completed" /> <effectiveTime value="498348040096" /> <value unit="gm/dL" xsi: type="PQ" value="15.3" /> <referenceRange> <observationRange > <text>14.0-18.0</text> </observationRange> </ referenceRange> </observation> </component> <component> <observation moodCode="EVN" classCode="OBS"> <templateId root= "216.840.1.855035.10..22.4.2" /> <id nullFlavor="NA" /> < code codeSystem="local" code="HCTT" displayName="HEMATOCRIT" /> < statusCode code="completed" /> <effectiveTime value="164342959311" /> <value unit="%" xsi:type="PQ" value="45.0" /> < referenceRange> <observationRange> <text>40.0-54.0</text > </observationRange> </referenceRange> </observation > </component> <component> <observation moodCode="EVN" classCode="OBS"> <templateId root="216.840.1.019020.10...4.2" /> <id nullFlavor="NA" /> <code codeSystem="local" code="NA" displayName="SODIUM" /> <statusCode code="completed" /> < effectiveTime value="357623794933" /> <value unit="mmol/L" xsi:type="PQ " value="131" /> <interpretationCode codeSystem="local" code="*" /> <referenceRange> <observationRange> <text>135-148 </text> </observationRange> </referenceRange> </ observation> </component> <component> <observation moodCode= "EVN" classCode="OBS"> <templateId root="216.840.1.227066.10.20.4.2 " /> <id nullFlavor="NA" /> <code codeSystem="local" code="CL " displayName="CHLORIDE" /> <statusCode code="completed" /> < effectiveTime value="371714014376" /> <value unit="mmol/L" xsi:type="PQ " value="96" /> <interpretationCode codeSystem="local" code="*" /> <referenceRange> <observationRange> <text>98-110</ text> </observationRange> </referenceRange> </ observation> </component> <component> <observation moodCode= "EVN" classCode="OBS"> <templateId root="2.16.840.1.171842.10.4.2 " /> <id nullFlavor="NA" /> <code codeSystem="local" code="CO2 " displayName="CARBON DIOXIDE" /> <statusCode code="completed" /> <effectiveTime value="235062885633" /> <value unit="mmol/L" xsi: type="PQ" value="21" /> <referenceRange> <observationRange> <text>21-32</text> </observationRange> </ referenceRange> </observation> </component> <component> <observation moodCode="EVN" classCode="OBS"> <templateId root= "2.16.840.1.746208.10.4.2" /> <id nullFlavor="NA" /> < code codeSystem="local" code="CAION" displayName="CALCIUM IONIZED" /> < statusCode code="completed" /> <effectiveTime value="035223296366" /> <value unit="mg/dL" xsi:type="PQ" value="4.7" /> < referenceRange> <observationRange> <text>4.5-5.3</text> </observationRange> </referenceRange> </observation > </component> </organizer> </entry> <entry> <organizer moodCode= "EVN" classCode="BATTERY"> <templateId root="2.16.840.1.623207.10.20.22.4.1 " /> <id nullFlavor="NA" /> <code codeSystem="local" code="BC" displayName="BLOOD CULTURE" /> <statusCode code="completed" /> < component> <observation moodCode="EVN" classCode="OBS"> < templateId root="216.840.1.014834.10..22.4.2" /> <id nullFlavor="NA " /> <code codeSystem="local" code="MB" displayName="Microbiology" /> <statusCode code="completed" /> <effectiveTime value= "472823181917" /> <value xsi:type="ST" value="<pre><b>BLOOD CULTURE</b > See BelowIs this a Possible Sepsis/Sepsis patient? YesBLOOD CULTURE(F) Jus Date/Time: 09/28/2016 13:05 Richie Date/ Time: 09/30/2016 07:53SOURCE: BLOODSPEC DESC: PERIPHERALPOSITIVE SMEAR CALLED AT 0654, 09/29/16 BY JOVANNI.[facility] TO . AT PHONE #. AND READ BACK.POSITIVE SMEAR (Abnormal)GRAM NEGATIVE BACILLI (Abnormal)HOURS TO DETECTION9:52Organism # 1 ESCHERICHIA COLICOMMENTS .FOR SUSCEPTIBILITY SEE PREVIOUS REPORT [facility] [facility], [place], [place] [address]</pre>" /> <referenceRange > <observationRange> <text /> </ observationRange> </referenceRange> </observation> </ component> </organizer> </entry> <entry> <organizer moodCode="EVN" classCode="BATTERY"> <templateId root="2.16.840.1.751170.10.20.22.4.1" /> <id nullFlavor="NA" /> <code codeSystem="local" code="LACT" displayName="LACTIC ACID" /> <statusCode code="completed" /> < component> <observation moodCode="EVN" classCode="OBS"> < templateId root="2.16.840.1.306307.10..22.4.2" /> <id nullFlavor="NA " /> <code codeSystem="local" code="LACT" displayName="LACTIC ACID" /> <statusCode code="completed" /> <effectiveTime value= "391165229715" /> <value unit="mmol/L" xsi:type="PQ" value="2.3" /> <interpretationCode codeSystem="local" code="*" /> < referenceRange> <observationRange> <text>0.5-2.0</text> </observationRange> </referenceRange> </observation > </component> </organizer> </entry> <entry> <organizer moodCode= "EVN" classCode="BATTERY"> <templateId root="2.16.840.1.514068.10..22.4.1 " /> <id nullFlavor="NA" /> <code codeSystem="local" code="BC" displayName="BLOOD CULTURE" /> <statusCode code="completed" /> < component> <observation moodCode="EVN" classCode="OBS"> < templateId root="2.16.840.1.127992.10..22.4.2" /> <id nullFlavor="NA " /> <code codeSystem="local" code="MB" displayName="Microbiology" /> <statusCode code="completed" /> <effectiveTime value= "651709092656" /> <value xsi:type="ST" value="<pre><b> BLOOD CULTURE</b> See BelowIs this a Possible Sepsis/Sepsis patient? YesBLOOD CULTURE(F) Jus Date/Time: 09/28/2016 13:09 Richie Date/Time: 09/30/2016 07:52SOURCE: BLOODSPEC DESC: PERIPHERALPOSITIVE SMEAR CALLED AT 0113, 09/29/16 BY JOVANNI.[facility] TO [facility] AT PHONE #[id number] AND READ BACK.POSITIVE SMEAR (Abnormal)GRAM NEGATIVE BACILLI ( Abnormal)HOURS TO [id number] #1 ESCHERICHIA COLI InterpAMPICILLIN VITEK <=2 SAMPICILLIN/SULBACTAM VITEK <=2 SCEFEPIME VITEK &lt ;=1 SCEFTRIAXONE VITEK <=1 SCIPROFLOXACIN VITEK <=0.25 SGENTAMICIN VITEK <=1 SPIPERACILLIN/TAZOBZCTAM VITEK <=4 STRIMETH/SULFA VITEK &lt ;=20 [facility] [place] [address]</pre>" / > <referenceRange> <observationRange> <text /> </observationRange> </referenceRange> </observation > </component> </organizer> </entry> <entry> <organizer moodCode= "EVN" classCode="BATTERY"> <templateId root="2.16.840.1.667517.10.20.22.4.1 " /> <id nullFlavor="NA" /> <code codeSystem="local" code="INFLAAG" displayName="INFLUENZA A OIA - INFLUENZA B OIA" /> <statusCode code= "completed" /> <component> <observation moodCode="EVN" classCode= "OBS"> <templateId root="2.16.840.1.679948.10.20.22.4.2" /> < id nullFlavor="NA" /> <code codeSystem="local" code="MB" displayName= "Microbiology" /> <statusCode code="completed" /> < effectiveTime value="993901674141" /> <value xsi:type="ST" value="<pre> <b>INFLUENZA A OIA - INFLUENZA B OIA</b> See BelowINFLUENZA A OIA(F) Jus Date/Time: 09/28/2016 13:58 Richie Date/Time: 09/28/2016 14:54SOURCE: NASOPHARYNGEALSPEC DESC: A negative result does not exclude influenza virus infectionINFLUENZA A OIANEGATIVE FOR INFLUENZA [place] [address] [place], [place] [address]Vkm BelowINFLUENZA B OIA(F ) Jus Date/Time: 09/28/2016 13:58 Richie Date/Time: 09/28/2016 14:54SOURCE: NASOPHARYNGEALSPEC DESC: INFLUENZA B OIANEGATIVE FOR INFLUENZA [address] [address]< /pre>" /> <referenceRange> <observationRange> < text /> </observationRange> </referenceRange> </ observation> </component> </organizer> </entry> <entry> <organizer moodCode="EVN" classCode="BATTERY"> <templateId root= "2.16.840.1.517155.10.20.22.4.1" /> <id nullFlavor="NA" /> <code codeSystem="local" code="UA" displayName="URINALYSIS, ROUTINE" /> < statusCode code="completed" /> <component> <observation moodCode= "EVN" classCode="OBS"> <templateId root="2.16.840.1.198954.10.20.22.4.2 " /> <id nullFlavor="NA" /> <code codeSystem="local" code= "LEUESU" displayName="UA LEUKOCYTE ESTERASE DIPSTICK" /> <statusCode code="completed" /> <effectiveTime value="901925488323" /> < value unit="" xsi:type="PQ" value="TRACE" /> <interpretationCode codeSystem="local" code="*" /> <referenceRange> < observationRange> <text>NEGATIVE</text> </ observationRange> </referenceRange> </observation> </ component> <component> <observation moodCode="EVN" classCode="OBS"> <templateId root="16.840.1.975514.10..4.2" /> <id nullFlavor="NA" /> <code codeSystem="local" code="NITRIU" displayName= "UA NITRITE DIPSTICK" /> <statusCode code="completed" /> < effectiveTime value="" /> <value unit="" xsi:type="PQ" value="POSITIVE" /> <interpretationCode codeSystem="local" code="*" /> <referenceRange> <observationRange> <text> NEGATIVE</text> </observationRange> </referenceRange> </observation> </component> <component> <observation moodCode ="EVN" classCode="OBS"> <templateId root= "10.29.840.1.844273.07.02.22.4.2" /> <id nullFlavor="NA" /> < code codeSystem="local" code="PROTEIU" displayName="UA PROTEIN DIPSTICK" /> <statusCode code="completed" /> <effectiveTime value= "" /> <value unit="" xsi:type="PQ" value="TRACE" /> <interpretationCode codeSystem="local" code="*" /> <referenceRange> <observationRange> <text>NEGATIVE</text> </ observationRange> </referenceRange> </observation> </ component> <component> <observation moodCode="EVN" classCode="OBS"> <templateId root="16.840.1.610613...4.2" /> <id nullFlavor="NA" /> <code codeSystem="local" code="DGLUU" displayName= "UA GLUCOSE DIPSTICK" /> <statusCode code="completed" /> < effectiveTime value="792433330664" /> <value unit="" xsi:type="PQ" value="NEGATIVE" /> <referenceRange> <observationRange> <text>NEGATIVE</text> </observationRange> </ referenceRange> </observation> </component> <component> <observation moodCode="EVN" classCode="OBS"> <templateId root= "10.29.840.1.540543.10...4.2" /> <id nullFlavor="NA" /> < code codeSystem="local" code="KETONU" displayName="UA KETONE DIPSTICK" /> <statusCode code="completed" /> <effectiveTime value=" " /> <value unit="" xsi:type="PQ" value="1+" /> < interpretationCode codeSystem="local" code="*" /> <referenceRange> <observationRange> <text>NEGATIVE</text> </ observationRange> </referenceRange> </observation> </ component> <component> <observation moodCode="EVN" classCode="OBS"> <templateId root="[id number]" /> <id nullFlavor="NA" /> <code codeSystem="local" code="UROBILU" displayName= "UA UROBILINOGEN DIPSTICK" /> <statusCode code="completed" /> <effectiveTime value="" /> <value unit="" xsi:type="PQ" value="2+" /> <interpretationCode codeSystem="local" code="*" /> <referenceRange> <observationRange> <text>NORMAL</ text> </observationRange> </referenceRange> </ observation> </component> <component> <observation moodCode= "EVN" classCode="OBS"> <templateId root="10.29.840.1.233145.07.02.22.4.2 " /> <id nullFlavor="NA" /> <code codeSystem="local" code= "BILU" displayName="UA BILIRUBIN DIPSTICK" /> <statusCode code= "completed" /> <effectiveTime value="" /> <value unit="" xsi:type="PQ" value="POSITIVE" /> <interpretationCode codeSystem="local" code="*" /> <referenceRange> < observationRange> <text>NEGATIVE</text> </ observationRange> </referenceRange> </observation> </ component> <component> <observation moodCode="EVN" classCode="OBS"> <templateId root="2.16.840.1.694584.07.02.22.4.2" /> <id nullFlavor="NA" /> <code codeSystem="local" code="SURY" displayName="UA BLOOD DIPSTICK" /> <statusCode code="completed" /> < effectiveTime value="" /> <value unit="" xsi:type="PQ" value="1+" /> <interpretationCode codeSystem="local" code="*" /> <referenceRange> <observationRange> <text>NEGATIVE</ text> </observationRange> </referenceRange> </ observation> </component> <component> <observation moodCode= "EVN" classCode="OBS"> <templateId root="2.16.840.1.455612.10.4.2 " /> <id nullFlavor="NA" /> <code codeSystem="local" code= "SPGRU" displayName="UA SPECIFIC GRAVITY" /> <statusCode code= "completed" /> <effectiveTime value="" /> <value unit="" xsi:type="PQ" value="1.029" /> <interpretationCode codeSystem= "local" code="*" /> <referenceRange> <observationRange> <text>1.015-1.025</text> </observationRange> </ referenceRange> </observation> </component> <component> <observation moodCode="EVN" classCode="OBS"> <templateId root= "16.840.1.049576.1022.4.2" /> <id nullFlavor="NA" /> < code codeSystem="local" code="CHUCK" displayName="UR PH" /> <statusCode code="completed" /> <effectiveTime value="[id number]" /> < value unit="" xsi:type="PQ" value="5.0" /> <referenceRange> <observationRange> <text>5.0-7.0</text> </ observationRange> </referenceRange> </observation> </ component> </organizer> </entry> <entry> <organizer moodCode="EVN" classCode="BATTERY"> <templateId root="16.840.1.880922.10..22.4.1" /> <id nullFlavor="NA" /> <code codeSystem="local" code="UAMICRO" displayName="UA MICROSCOPIC" /> <statusCode code="completed" /> < component> <observation moodCode="EVN" classCode="OBS"> < templateId root="16.840.1.326812.10..22.4.2" /> <id nullFlavor="NA " /> <code codeSystem="local" code="AMORPU" displayName="UA AMORPHOUS SEDIMENT" /> <statusCode code="completed" /> <effectiveTime value="[id number]" /> <value unit="" xsi:type="PQ" value="2+" /> <referenceRange> <observationRange> <text /> </observationRange> </referenceRange> </observation> </component> <component> <observation moodCode="EVN" classCode= "OBS"> <templateId root="10.29.840.1.884825.10..22.4.2" /> < id nullFlavor="NA" /> <code codeSystem="local" code="BACU" displayName= "UA BACTERIA" /> <statusCode code="completed" /> < effectiveTime value="" /> <value unit="" xsi:type="PQ" value="1+" /> <interpretationCode codeSystem="local" code="*" /> <referenceRange> <observationRange> <text>NEGATIVE</ text> </observationRange> </referenceRange> </ observation> </component> <component> <observation moodCode= "EVN" classCode="OBS"> <templateId root="840.1.680920...4.2 " /> <id nullFlavor="NA" /> <code codeSystem="local" code= "RBCU" displayName="UA RBC" /> <statusCode code="completed" /> <effectiveTime value="" /> <value unit="rbc/hpf" xsi:type ="PQ" value="5-10" /> <interpretationCode codeSystem="local" code="*" / > <referenceRange> <observationRange> <text>0 - 3</text> </observationRange> </referenceRange> </ observation> </component> <component> <observation moodCode= "EVN" classCode="OBS"> <templateId root="10.29.840.1.495782.10..22.4.2 " /> <id nullFlavor="NA" /> <code codeSystem="local" code= "UAVOL" displayName="UA VOLUME FOR EXAM" /> <statusCode code="completed " /> <effectiveTime value="" /> <value unit="mL" xsi:type="PQ" value="12.0" /> <referenceRange> < observationRange> <text>(12mL STD)</text> </ observationRange> </referenceRange> </observation> </ component> <component> <observation moodCode="EVN" classCode="OBS"> <templateId root="16.840.1.696695.10.20.22.4.2" /> <id nullFlavor="NA" /> <code codeSystem="local" code="WBCU" displayName=" UA WBC" /> <statusCode code="completed" /> <effectiveTime value="[id number]" /> <value unit="wbc/hpf" xsi:type="PQ" value="0-1 " /> <referenceRange> <observationRange> <text> 0 - 5</text> </observationRange> </referenceRange> </ observation> </component> </organizer> </entry> <entry> <organizer moodCode="EVN" classCode="BATTERY"> <templateId root= "16.840.1.436345.10..22.4.1" /> <id nullFlavor="NA" /> <code codeSystem="local" code="DRUGAB" displayName="UR DRUGS OF ABUSE SCREEN" /> <statusCode code="completed" /> <component> <observation moodCode= "EVN" classCode="OBS"> <templateId root="10.29.840.1.799384.10.20.22.4.2 " /> <id nullFlavor="NA" /> <code codeSystem="local" code= "AMPHU" displayName="UR AMPHETAMINES SCREEN" /> <statusCode code= "completed" /> <effectiveTime value="853628853662" /> <value unit="" xsi:type="PQ" value="NEG (<1000 ng/mL)" /> <referenceRange > <observationRange> <text>NEGATIVE</text> </ observationRange> </referenceRange> </observation> </ component> <component> <observation moodCode="EVN" classCode="OBS"> <templateId root="216.840.1.426103.10.4.2" /> <id nullFlavor="NA" /> <code codeSystem="local" code="BARBU" displayName= "UR BARBITURATE SCREEN" /> <statusCode code="completed" /> < effectiveTime value="" /> <value unit="" xsi:type="PQ" value="NEG (< 200 ng/mL)" /> <referenceRange> < observationRange> <text>NEGATIVE</text> </ observationRange> </referenceRange> </observation> </ component> <component> <observation moodCode="EVN" classCode="OBS"> <templateId root="216.840.1.987885.07.02.22.4.2" /> <id nullFlavor="NA" /> <code codeSystem="local" code="DAUCOMMENT" displayName="DRUGS OF ABUSE SCREEN COMMENT" /> <statusCode code= "completed" /> <effectiveTime value="" /> <value unit="" xsi:type="PQ" value="" /> <referenceRange> < observationRange> <text /> </observationRange> </referenceRange> </observation> </component> <component> <observation moodCode="EVN" classCode="OBS"> <templateId root= "216.840.1.065970.07.02.22.4.2" /> <id nullFlavor="NA" /> < code codeSystem="local" code="OPIU" displayName="UR OPIATES SCREEN" /> <statusCode code="completed" /> <effectiveTime value="" /> <value unit="" xsi:type="PQ" value="NEG (< 300 ng/mL)" /> <referenceRange> <observationRange> <text>NEGATIVE</ text> </observationRange> </referenceRange> </ observation> </component> <component> <observation moodCode= "EVN" classCode="OBS"> <templateId root="216.840.1.641159.10.20.22.4.2 " /> <id nullFlavor="NA" /> <code codeSystem="local" code= "PCPU" displayName="UR PHENCYCLIDINE (PCP) SCREEN" /> <statusCode code= "completed" /> <effectiveTime value="995458996109" /> <value unit="" xsi:type="PQ" value="NEG (< 25 ng/mL)" /> <referenceRange > <observationRange> <text>NEGATIVE</text> </ observationRange> </referenceRange> </observation> </ component> <component> <observation moodCode="EVN" classCode="OBS"> <templateId root="16.840.1.194208.10..4.2" /> <id nullFlavor="NA" /> <code codeSystem="local" code="THCU" displayName=" UR CANNABINOIDS (THC) SCREEN" /> <statusCode code="completed" /> <effectiveTime value="610957996183" /> <value unit="" xsi:type="PQ " value="NEG (< 50 ng/mL)" /> <referenceRange> < observationRange> <text>NEGATIVE</text> </ observationRange> </referenceRange> </observation> </ component> <component> <observation moodCode="EVN" classCode="OBS"> <templateId root="216.840.1.822690.10.20.22.4.2" /> <id nullFlavor="NA" /> <code codeSystem="local" code="COCAU" displayName= "UR COCAINE METABOLITE SCREEN" /> <statusCode code="completed" /> <effectiveTime value="" /> <value unit="" xsi:type="PQ " value="NEG (< 300 ng/mL)" /> <referenceRange> < observationRange> <text>NEGATIVE</text> </ observationRange> </referenceRange> </observation> </ component> <component> <observation moodCode="EVN" classCode="OBS"> <templateId root="2.16.840.1.675693.10..22.4.2" /> <id nullFlavor="NA" /> <code codeSystem="local" code="METHU" displayName= "UR METHADONE SCREEN" /> <statusCode code="completed" /> < effectiveTime value="" /> <value unit="" xsi:type="PQ" value="NEG (< 300 ng/mL)" /> <referenceRange> < observationRange> <text>NEGATIVE</text> </ observationRange> </referenceRange> </observation> </ component> <component> <observation moodCode="EVN" classCode="OBS"> <templateId root="2.16.840.1.812395.10..22.4.2" /> <id nullFlavor="NA" /> <code codeSystem="local" code="BENZU" displayName= "UR BENZODIAZEPINE SCREEN" /> <statusCode code="completed" /> <effectiveTime value="105164289553" /> <value unit="" xsi:type="PQ" value="NEG (< 200 ng/mL)" /> <referenceRange> < observationRange> <text>NEGATIVE</text> </ observationRange> </referenceRange> </observation> </ component> </organizer> </entry> <entry> <organizer moodCode="EVN" classCode="BATTERY"> <templateId root="10.29.840.1.845672.10..4.1" /> <id nullFlavor="NA" /> <code codeSystem="local" code="CBCWD" displayName="CBC With Platelet and Differential" /> <statusCode code= "completed" /> <component> <observation moodCode="EVN" classCode= "OBS"> <templateId root="10.29.840.1.235006.07.02.22.4.2" /> < id nullFlavor="NA" /> <code codeSystem="local" code="ABASR" displayName ="Absolute Basophils" /> <statusCode code="completed" /> < effectiveTime value="" /> <value unit="10*3/uL" xsi:type= "PQ" value="0.01" /> <referenceRange> <observationRange> <text>0.00-0.20</text> </observationRange> </ referenceRange> </observation> </component> <component> <observation moodCode="EVN" classCode="OBS"> <templateId root= "840.1.941553.07.02.224.2" /> <id nullFlavor="NA" /> < code codeSystem="local" code="AEOSR" displayName="Absolute Eosinophils" /> <statusCode code="completed" /> <effectiveTime value=" " /> <value unit="10*3/uL" xsi:type="PQ" value="0.02" /> < referenceRange> <observationRange> <text>0.00-0.50</text > </observationRange> </referenceRange> </observation > </component> <component> <observation moodCode="EVN" classCode="OBS"> <templateId root="10.29.840.1.488626.07.02.22.4.2" /> <id nullFlavor="NA" /> <code codeSystem="local" code="ALYMR" displayName="Absolute Lymphocytes" /> <statusCode code="completed" /> <effectiveTime value="" /> <value unit="10*3/uL" xsi:type="PQ" value="1.14" /> <referenceRange> < observationRange> <text>0.80-3.30</text> </ observationRange> </referenceRange> </observation> </ component> <component> <observation moodCode="EVN" classCode="OBS"> <templateId root="2.16.840.1.751197.22.4.2" /> <id nullFlavor="NA" /> <code codeSystem="local" code="AMONR" displayName= "Absolute Monocytes" /> <statusCode code="completed" /> < effectiveTime value="" /> <value unit="10*3/uL" xsi:type= "PQ" value="1.47" /> <interpretationCode codeSystem="local" code="*" / > <referenceRange> <observationRange> <text> 0.30-1.00</text> </observationRange> </referenceRange> </observation> </component> <component> <observation moodCode="EVN" classCode="OBS"> <templateId root= "216.840.1.719062.102022.4.2" /> <id nullFlavor="NA" /> < code codeSystem="local" code="ASEGR" displayName="Absolute Neutrophils" /> <statusCode code="completed" /> <effectiveTime value=" " /> <value unit="10*3/uL" xsi:type="PQ" value="14.66" /> < interpretationCode codeSystem="local" code="*" /> <referenceRange> <observationRange> <text>1.90-7.00</text> </ observationRange> </referenceRange> </observation> </ component> <component> <observation moodCode="EVN" classCode="OBS"> <templateId root="216.840.1.903632.10.2022.4.2" /> <id nullFlavor="NA" /> <code codeSystem="local" code="BASOR" displayName= "Basophils" /> <statusCode code="completed" /> <effectiveTime value="" /> <value unit="%" xsi:type="PQ" value="0" /> <referenceRange> <observationRange> <text>0-2< /text> </observationRange> </referenceRange> </ observation> </component> <component> <observation moodCode= "EVN" classCode="OBS"> <templateId root="10.29.840.1.840121.1022.4.2 " /> <id nullFlavor="NA" /> <code codeSystem="local" code= "EOSR" displayName="Eosinophils" /> <statusCode code="completed" /> <effectiveTime value="" /> <value unit="%" xsi: type="PQ" value="0" /> <referenceRange> <observationRange> <text>0-4</text> </observationRange> </ referenceRange> </observation> </component> <component> <observation moodCode="EVN" classCode="OBS"> <templateId root= "16.840.1.117611.102022.4.2" /> <id nullFlavor="NA" /> < code codeSystem="local" code="HCT" displayName="HCT" /> <statusCode code="completed" /> <effectiveTime value="" /> < value unit="%" xsi:type="PQ" value="37.8" /> <interpretationCode codeSystem="local" code="*" /> <referenceRange> < observationRange> <text>42.0-52.0</text> </ observationRange> </referenceRange> </observation> </ component> <component> <observation moodCode="EVN" classCode="OBS"> <templateId root="216.840.1.626131.10.2022.4.2" /> <id nullFlavor="NA" /> <code codeSystem="local" code="HGB" displayName="HGB " /> <statusCode code="completed" /> <effectiveTime value= "256882314972" /> <value unit="g/dL" xsi:type="PQ" value="13.1" /> <interpretationCode codeSystem="local" code="*" /> < referenceRange> <observationRange> <text>14.0-18.0</text > </observationRange> </referenceRange> </observation > </component> <component> <observation moodCode="EVN" classCode="OBS"> <templateId root="216.840.1.518781.10.2022.4.2" /> <id nullFlavor="NA" /> <code codeSystem="local" code="IMGA" displayName="Immature Granulocytes" /> <statusCode code="completed" /> <effectiveTime value="449804690093" /> <value unit="%" xsi:type="PQ" value="1.4" /> <interpretationCode codeSystem="local" code="*" /> <referenceRange> <observationRange> <text>0.0-1.0</text> </observationRange> </referenceRange > </observation> </component> <component> <observation moodCode="EVN" classCode="OBS"> <templateId root= "2.16.840.1.005433.10.20.22.4.2" /> <id nullFlavor="NA" /> < code codeSystem="local" code="LYMPR" displayName="Lymphocytes" /> < statusCode code="completed" /> <effectiveTime value="" /> <value unit="%" xsi:type="PQ" value="7" /> < interpretationCode codeSystem="local" code="*" /> <referenceRange> <observationRange> <text>20-46</text> </ observationRange> </referenceRange> </observation> </ component> <component> <observation moodCode="EVN" classCode="OBS"> <templateId root="10.29.840.1.243654.10.22.4.2" /> <id nullFlavor="NA" /> <code codeSystem="local" code="MCH" displayName="MCH " /> <statusCode code="completed" /> <effectiveTime value= "" /> <value unit="pg" xsi:type="PQ" value="27.6" /> <referenceRange> <observationRange> <text>27.0-32.0< /text> </observationRange> </referenceRange> </ observation> </component> <component> <observation moodCode= "EVN" classCode="OBS"> <templateId root="10.29.840.1.979701.10.20.22.4.2 " /> <id nullFlavor="NA" /> <code codeSystem="local" code= "MCHC" displayName="MCHC" /> <statusCode code="completed" /> < effectiveTime value="392705291427" /> <value unit="g/dL" xsi:type="PQ" value="34.7" /> <referenceRange> <observationRange> <text>32.0-36.0</text> </observationRange> </ referenceRange> </observation> </component> <component> <observation moodCode="EVN" classCode="OBS"> <templateId root= "216.840.1.771927.10.22.4.2" /> <id nullFlavor="NA" /> < code codeSystem="local" code="MCV" displayName="MCV" /> <statusCode code="completed" /> <effectiveTime value="" /> < value unit="fL" xsi:type="PQ" value="79.7" /> <interpretationCode codeSystem="local" code="*" /> <referenceRange> < observationRange> <text>82.0-99.0</text> </ observationRange> </referenceRange> </observation> </ component> <component> <observation moodCode="EVN" classCode="OBS"> <templateId root="10.29.840.1.811758.1022.4.2" /> <id nullFlavor="NA" /> <code codeSystem="local" code="MONOR" displayName= "Monocytes" /> <statusCode code="completed" /> <effectiveTime value="" /> <value unit="%" xsi:type="PQ" value="8" /> <referenceRange> <observationRange> <text>4-11 </text> </observationRange> </referenceRange> </ observation> </component> <component> <observation moodCode= "EVN" classCode="OBS"> <templateId root="10.29.840.1.222321.10.22.4.2 " /> <id nullFlavor="NA" /> <code codeSystem="local" code="MPV " displayName="MPV" /> <statusCode code="completed" /> < effectiveTime value="" /> <value unit="fL" xsi:type="PQ" value="8.7" /> <interpretationCode codeSystem="local" code="*" /> <referenceRange> <observationRange> <text>9.4-12.3< /text> </observationRange> </referenceRange> </ observation> </component> <component> <observation moodCode= "EVN" classCode="OBS"> <templateId root="10.29.840.1.825896.07.02.22.4.2 " /> <id nullFlavor="NA" /> <code codeSystem="local" code= "SEGR" displayName="Neutrophils" /> <statusCode code="completed" /> <effectiveTime value="" /> <value unit="%" xsi: type="PQ" value="84" /> <interpretationCode codeSystem="local" code="* " /> <referenceRange> <observationRange> <text> 51-75</text> </observationRange> </referenceRange> </ observation> </component> <component> <observation moodCode= "EVN" classCode="OBS"> <templateId root="840.1.966637.07.02.22.4.2 " /> <id nullFlavor="NA" /> <code codeSystem="local" code= "NRBCA" displayName="Nucleated RBC Automated" /> <statusCode code= "completed" /> <effectiveTime value="" /> <value unit="/100WBC" xsi:type="PQ" value="0.0" /> <referenceRange> <observationRange> <text /> </observationRange> </referenceRange> </observation> </component> <component> <observation moodCode="EVN" classCode="OBS"> <templateId root= "10.29.840.1.197291.07.02.22.4.2" /> <id nullFlavor="NA" /> < code codeSystem="local" code="PLT" displayName="Platelet Count" /> < statusCode code="completed" /> <effectiveTime value="" /> <value unit="K/uL" xsi:type="PQ" value="336" /> < referenceRange> <observationRange> <text>150-400</text> </observationRange> </referenceRange> </observation > </component> <component> <observation moodCode="EVN" classCode="OBS"> <templateId root="216.840.1.446109.07.02.22.4.2" /> <id nullFlavor="NA" /> <code codeSystem="local" code="RBC" displayName="RBC" /> <statusCode code="completed" /> < effectiveTime value="" /> <value unit="10*6/uL" xsi:type= "PQ" value="4.74" /> <referenceRange> <observationRange> <text>4.60-6.20</text> </observationRange> </ referenceRange> </observation> </component> <component> <observation moodCode="EVN" classCode="OBS"> <templateId root= "2.16.840.1.780579....4.2" /> <id nullFlavor="NA" /> < code codeSystem="local" code="RDW" displayName="RDW" /> <statusCode code="completed" /> <effectiveTime value="" /> < value unit="%" xsi:type="PQ" value="13.9" /> <referenceRange> <observationRange> <text>11.5-14.5</text> </ observationRange> </referenceRange> </observation> </ component> <component> <observation moodCode="EVN" classCode="OBS"> <templateId root="2.16.840.1.294824.10.20.22.4.2" /> <id nullFlavor="NA" /> <code codeSystem="local" code="WBCIR" displayName= "WBC" /> <statusCode code="completed" /> <effectiveTime value= "085489395467" /> <value unit="K/uL" xsi:type="PQ" value="17.6" /> <interpretationCode codeSystem="local" code="*" /> < referenceRange> <observationRange> <text>4.8-10.8</text > </observationRange> </referenceRange> </observation > </component> </organizer> </entry> <entry> <organizer moodCode= "EVN" classCode="BATTERY"> <templateId root="2.16.840.1.563939.10..22.4.1 " /> <id nullFlavor="NA" /> <code codeSystem="local" code="CMP" displayName="Comprehensive Metabolic Panel (CMP)" /> <statusCode code= "completed" /> <component> <observation moodCode="EVN" classCode= "OBS"> <templateId root="2.16.840.1.712152.10.20.22.4.2" /> < id nullFlavor="NA" /> <code codeSystem="local" code="ALB" displayName= "Albumin" /> <statusCode code="completed" /> <effectiveTime value="759849302341" /> <value unit="g/dL" xsi:type="PQ" value="2.5" / > <interpretationCode codeSystem="local" code="*" /> < referenceRange> <observationRange> <text>3.5-4.8</text> </observationRange> </referenceRange> </observation > </component> <component> <observation moodCode="EVN" classCode="OBS"> <templateId root="16.840.1.098350.10..22.4.2" /> <id nullFlavor="NA" /> <code codeSystem="local" code="ALP" displayName="Alkaline Phosphatase" /> <statusCode code="completed" /> <effectiveTime value="" /> <value unit="U/L" xsi: type="PQ" value="86" /> <referenceRange> <observationRange> <text>26-104</text> </observationRange> </ referenceRange> </observation> </component> <component> <observation moodCode="EVN" classCode="OBS"> <templateId root= "10.29.840.1.316043.10..22.4.2" /> <id nullFlavor="NA" /> < code codeSystem="local" code="ALT" displayName="ALT (SGPT)" /> < statusCode code="completed" /> <effectiveTime value="" /> <value unit="U/L" xsi:type="PQ" value="26" /> <referenceRange > <observationRange> <text>17-63</text> </ observationRange> </referenceRange> </observation> </ component> <component> <observation moodCode="EVN" classCode="OBS"> <templateId root="10.29.840.1.608381.10.20.22.4.2" /> <id nullFlavor="NA" /> <code codeSystem="local" code="AGAP" displayName= "Anion Gap" /> <statusCode code="completed" /> <effectiveTime value="304672534760" /> <value unit="mEq/L" xsi:type="PQ" value="10" / > <referenceRange> <observationRange> <text>3- 20</text> </observationRange> </referenceRange> </ observation> </component> <component> <observation moodCode= "EVN" classCode="OBS"> <templateId root="2.16.840.1.643839.10..4.2 " /> <id nullFlavor="NA" /> <code codeSystem="local" code="AST " displayName="AST (SGOT)" /> <statusCode code="completed" /> <effectiveTime value="" /> <value unit="U/L" xsi:type="PQ" value="29" /> <referenceRange> <observationRange> <text>15-41</text> </observationRange> </referenceRange > </observation> </component> <component> <observation moodCode="EVN" classCode="OBS"> <templateId root= "216.840.1.502738.07.02.22.4.2" /> <id nullFlavor="NA" /> < code codeSystem="local" code="BILIT" displayName="Bilirubin Total" /> < statusCode code="completed" /> <effectiveTime value="" /> <value unit="mg/dL" xsi:type="PQ" value="1.0" /> < referenceRange> <observationRange> <text>0.2-1.2</text> </observationRange> </referenceRange> </observation > </component> <component> <observation moodCode="EVN" classCode="OBS"> <templateId root="216.840.1.463652.10..4.2" /> <id nullFlavor="NA" /> <code codeSystem="local" code="BUN" displayName="BUN" /> <statusCode code="completed" /> < effectiveTime value="" /> <value unit="mg/dL" xsi:type="PQ " value="15" /> <referenceRange> <observationRange> <text>4-20</text> </observationRange> </referenceRange > </observation> </component> <component> <observation moodCode="EVN" classCode="OBS"> <templateId root= "10.29.840.1.412807.10.20.22.4.2" /> <id nullFlavor="NA" /> < code codeSystem="local" code="CA" displayName="Calcium" /> <statusCode code="completed" /> <effectiveTime value="831649161376" /> < value unit="mg/dL" xsi:type="PQ" value="8.5" /> <interpretationCode codeSystem="local" code="*" /> <referenceRange> < observationRange> <text>8.6-10.0</text> </ observationRange> </referenceRange> </observation> </ component> <component> <observation moodCode="EVN" classCode="OBS"> <templateId root="840.1.929762....4.2" /> <id nullFlavor="NA" /> <code codeSystem="local" code="CL" displayName= "Chloride" /> <statusCode code="completed" /> <effectiveTime value="327198888354" /> <value unit="mEq/L" xsi:type="PQ" value="96" / > <interpretationCode codeSystem="local" code="*" /> < referenceRange> <observationRange> <text>99-109</text> </observationRange> </referenceRange> </observation> </component> <component> <observation moodCode="EVN" classCode ="OBS"> <templateId root="10.29.840.1.947802.10.20.22.4.2" /> < id nullFlavor="NA" /> <code codeSystem="local" code="CO2" displayName= "CO2" /> <statusCode code="completed" /> <effectiveTime value= "" /> <value unit="mEq/L" xsi:type="PQ" value="24" /> <referenceRange> <observationRange> <text>22-32</ text> </observationRange> </referenceRange> </ observation> </component> <component> <observation moodCode= "EVN" classCode="OBS"> <templateId root="840.1.029313.10.20.22.4.2 " /> <id nullFlavor="NA" /> <code codeSystem="local" code= "CREAT" displayName="Creatinine" /> <statusCode code="completed" /> <effectiveTime value="" /> <value unit="mg/dL" xsi: type="PQ" value="0.93" /> <referenceRange> <observationRange > <text>0.64-1.27</text> </observationRange> </ referenceRange> </observation> </component> <component> <observation moodCode="EVN" classCode="OBS"> <templateId root= "10.29.840.1.570800.10.20.22.4.2" /> <id nullFlavor="NA" /> < code codeSystem="local" code="GLOB" displayName="Globulin" /> < statusCode code="completed" /> <effectiveTime value="[id number]" /> <value unit="g/dL" xsi:type="PQ" value="3.7" /> < referenceRange> <observationRange> <text>1.9-4.3</text> </observationRange> </referenceRange> </observation > </component> <component> <observation moodCode="EVN" classCode="OBS"> <templateId root="10.29.830.1.114714.10.20.22.4.2" /> <id nullFlavor="NA" /> <code codeSystem="local" code="GLU" displayName="Glucose" /> <statusCode code="completed" /> < effectiveTime value="201859491176" /> <value unit="mg/dL" xsi:type="PQ " value="109" /> <interpretationCode codeSystem="local" code="*" /> <referenceRange> <observationRange> <text>70-100< /text> </observationRange> </referenceRange> </ observation> </component> <component> <observation moodCode= "EVN" classCode="OBS"> <templateId root="840.1.752097.10.2022.4.2 " /> <id nullFlavor="NA" /> <code codeSystem="local" code="K" displayName="Potassium" /> <statusCode code="completed" /> < effectiveTime value="" /> <value unit="mEq/L" xsi:type="PQ " value="3.0" /> <interpretationCode codeSystem="local" code="*" /> <referenceRange> <observationRange> <text>3.6-5.1 </text> </observationRange> </referenceRange> </ observation> </component> <component> <observation moodCode= "EVN" classCode="OBS"> <templateId root="10.29.840.1.363879.10.2022.4.2 " /> <id nullFlavor="NA" /> <code codeSystem="local" code="TP " displayName="Protein" /> <statusCode code="completed" /> < effectiveTime value="[id number]" /> <value unit="g/dL" xsi:type="PQ" value="6.2" /> <referenceRange> <observationRange> <text>6.1-7.9</text> </observationRange> </ referenceRange> </observation> </component> <component> <observation moodCode="EVN" classCode="OBS"> <templateId root= "10.29.840.1.439828.10.20.22.4.2" /> <id nullFlavor="NA" /> < code codeSystem="local" code="NA" displayName="Sodium" /> <statusCode code="completed" /> <effectiveTime value="913329258639" /> < value unit="mEq/L" xsi:type="PQ" value="130" /> <interpretationCode codeSystem="local" code="*" /> <referenceRange> < observationRange> <text>136-144</text> </ observationRange> </referenceRange> </observation> </ component> </organizer> </entry> <entry> <organizer moodCode="EVN" classCode="BATTERY"> <templateId root="10.29.840.1.735343.10.20.22.4.1" /> <id nullFlavor="NA" /> <code codeSystem="local" code="GFR" displayName ="eGFR" /> <statusCode code="completed" /> <component> < observation moodCode="EVN" classCode="OBS"> <templateId root= "10.29.840.1.879612.102022.4.2" /> <id nullFlavor="NA" /> < code codeSystem="local" code="GFR" displayName="eGFR" /> <statusCode code="completed" /> <effectiveTime value="[id number]" /> < value unit="mL/min" xsi:type="PQ" value=">60" /> <referenceRange> <observationRange> <text>>60</text> </ observationRange> </referenceRange> </observation> </ component> </organizer> </entry> <entry> <organizer moodCode="EVN" classCode="BATTERY"> <templateId root="216.840.1.648729.10..4.1" /> <id nullFlavor="NA" /> <code codeSystem="local" code="UDRGH" displayName="Urine Drug Screen" /> <statusCode code="completed" /> < component> <observation moodCode="EVN" classCode="OBS"> < templateId root="216.840.1.323644.10..4.2" /> <id nullFlavor="NA " /> <code codeSystem="local" code="UTCA1" displayName="Tricyclics" /> <statusCode code="completed" /> <effectiveTime value= "757730265780" /> <value unit="NA" xsi:type="PQ" value="Not Detected" / > <referenceRange> <observationRange> <text /> </observationRange> </referenceRange> </observation > </component> <component> <observation moodCode="EVN" classCode="OBS"> <templateId root="216.840.1.653193.10..4.2" /> <id nullFlavor="NA" /> <code codeSystem="local" code="UAMP1" displayName="Amph/Meth/Ecstasy" /> <statusCode code="completed" /> <effectiveTime value="376972197113" /> <value unit="NA" xsi:type= "PQ" value="Negative" /> <referenceRange> <observationRange > <text /> </observationRange> </referenceRange > </observation> </component> <component> <observation moodCode="EVN" classCode="OBS"> <templateId root= "216.840.1.985355.07.02.22.4.2" /> <id nullFlavor="NA" /> < code codeSystem="local" code="UBAR1" displayName="Barbiturates" /> < statusCode code="completed" /> <effectiveTime value="" /> <value unit="NA" xsi:type="PQ" value="Negative" /> < referenceRange> <observationRange> <text /> < /observationRange> </referenceRange> </observation> </ component> <component> <observation moodCode="EVN" classCode="OBS"> <templateId root="216.840.1.851806.07.02.22.4.2" /> <id nullFlavor="NA" /> <code codeSystem="local" code="UBEN1" displayName= "Benzodiazepine" /> <statusCode code="completed" /> < effectiveTime value="" /> <value unit="NA" xsi:type="PQ" value="Negative" /> <referenceRange> <observationRange> <text /> </observationRange> </referenceRange> </observation> </component> <component> <observation moodCode="EVN" classCode="OBS"> <templateId root= "216.840.1.303740.07.02.22.4.2" /> <id nullFlavor="NA" /> < code codeSystem="local" code="UCAN1" displayName="Cannabinoid" /> < statusCode code="completed" /> <effectiveTime value="" /> <value unit="NA" xsi:type="PQ" value="Negative" /> < referenceRange> <observationRange> <text /> < /observationRange> </referenceRange> </observation> </ component> <component> <observation moodCode="EVN" classCode="OBS"> <templateId root="216.840.1.576303.07.02.22.4.2" /> <id nullFlavor="NA" /> <code codeSystem="local" code="UCOC1" displayName= "Cocaine" /> <statusCode code="completed" /> <effectiveTime value="" /> <value unit="NA" xsi:type="PQ" value="Negative " /> <referenceRange> <observationRange> <text /> </observationRange> </referenceRange> </ observation> </component> <component> <observation moodCode= "EVN" classCode="OBS"> <templateId root="10.29.840.1.936428.07.02.22.4.2 " /> <id nullFlavor="NA" /> <code codeSystem="local" code= "UMTD1" displayName="EDDP (Methadone met.)" /> <statusCode code= "completed" /> <effectiveTime value="" /> <value unit="NA" xsi:type="PQ" value="Negative" /> <referenceRange> <observationRange> <text /> </observationRange> </referenceRange> </observation> </component> <component> <observation moodCode="EVN" classCode="OBS"> <templateId root= "840.1.944056...4.2" /> <id nullFlavor="NA" /> < code codeSystem="local" code="UOPI1" displayName="Opiate" /> < statusCode code="completed" /> <effectiveTime value="" /> <value unit="NA" xsi:type="PQ" value="Negative" /> < referenceRange> <observationRange> <text /> < /observationRange> </referenceRange> </observation> </ component> <component> <observation moodCode="EVN" classCode="OBS"> <templateId root="10.29.830.1.608385.10..22.4.2" /> <id nullFlavor="NA" /> <code codeSystem="local" code="UPCP1" displayName= "Phencyclidine (PCP)" /> <statusCode code="completed" /> < effectiveTime value="477713566880" /> <value unit="NA" xsi:type="PQ" value="Negative" /> <referenceRange> <observationRange> <text /> </observationRange> </referenceRange> </observation> </component> </organizer> </entry> <entry> < organizer moodCode="EVN" classCode="BATTERY"> <templateId root= "10.29.840.1.185789.10..22.4.1" /> <id nullFlavor="NA" /> <code codeSystem="local" code="UA" displayName="Urinalysis with reflex microscopic" / > <statusCode code="completed" /> <component> <observation moodCode="EVN" classCode="OBS"> <templateId root= "10.29.840.1.880585.10..22.4.2" /> <id nullFlavor="NA" /> < code codeSystem="local" code="UAPP" displayName="Appearance" /> < statusCode code="completed" /> <effectiveTime value="594846604612" /> <value unit="NA" xsi:type="PQ" value="Clear" /> < referenceRange> <observationRange> <text /> < /observationRange> </referenceRange> </observation> </ component> <component> <observation moodCode="EVN" classCode="OBS"> <templateId root="16.840.1.315564.10..22.4.2" /> <id nullFlavor="NA" /> <code codeSystem="local" code="UBIL" displayName= "Bilirubin" /> <statusCode code="completed" /> <effectiveTime value="" /> <value unit="NA" xsi:type="PQ" value="Negative " /> <referenceRange> <observationRange> <text> Negative</text> </observationRange> </referenceRange> </observation> </component> <component> <observation moodCode ="EVN" classCode="OBS"> <templateId root= "16.840.1.446349.07.02.22.4.2" /> <id nullFlavor="NA" /> < code codeSystem="local" code="UBLD" displayName="Blood" /> <statusCode code="completed" /> <effectiveTime value="" /> < value unit="NA" xsi:type="PQ" value="Pos 2+" /> <interpretationCode codeSystem="local" code="*" /> <referenceRange> < observationRange> <text>Negative</text> </ observationRange> </referenceRange> </observation> </ component> <component> <observation moodCode="EVN" classCode="OBS"> <templateId root="16.840.1.240619.10...4.2" /> <id nullFlavor="NA" /> <code codeSystem="local" code="UCOLR" displayName= "Color" /> <statusCode code="completed" /> <effectiveTime value="" /> <value unit="NA" xsi:type="PQ" value="Miate" / > <interpretationCode codeSystem="local" code="*" /> < referenceRange> <observationRange> <text /> < /observationRange> </referenceRange> </observation> </ component> <component> <observation moodCode="EVN" classCode="OBS"> <templateId root="16.840.1.059567.07.02.22.4.2" /> <id nullFlavor="NA" /> <code codeSystem="local" code="UGLU" displayName= "Glucose, Urine" /> <statusCode code="completed" /> < effectiveTime value="" /> <value unit="" xsi:type="PQ" value="Negative" /> <referenceRange> <observationRange> <text>Negative</text> </observationRange> </ referenceRange> </observation> </component> <component> <observation moodCode="EVN" classCode="OBS"> <templateId root= "10.29.840.1.045708.07.02.22.4.2" /> <id nullFlavor="NA" /> < code codeSystem="local" code="UKET" displayName="Ketones" /> < statusCode code="completed" /> <effectiveTime value="" /> <value unit="" xsi:type="PQ" value="Negative" /> < referenceRange> <observationRange> <text>Negative</text > </observationRange> </referenceRange> </observation > </component> <component> <observation moodCode="EVN" classCode="OBS"> <templateId root="10.29.840.1.885949...4.2" /> <id nullFlavor="NA" /> <code codeSystem="local" code="ULEU" displayName="Leukocyte Esterase" /> <statusCode code="completed" /> <effectiveTime value="" /> <value unit="NA" xsi:type ="PQ" value="Negative" /> <referenceRange> <observationRange > <text>Negative</text> </observationRange> </ referenceRange> </observation> </component> <component> <observation moodCode="EVN" classCode="OBS"> <templateId root= "2.16.840.1.089198.10.22.4.2" /> <id nullFlavor="NA" /> < code codeSystem="local" code="UNIT" displayName="Nitrites" /> < statusCode code="completed" /> <effectiveTime value="" /> <value unit="NA" xsi:type="PQ" value="Negative" /> < referenceRange> <observationRange> <text>Negative</text > </observationRange> </referenceRange> </observation > </component> <component> <observation moodCode="EVN" classCode="OBS"> <templateId root="216.840.1.096050.07.02.22.4.2" /> <id nullFlavor="NA" /> <code codeSystem="local" code="UPH" displayName="pH" /> <statusCode code="completed" /> < effectiveTime value="" /> <value unit="NA" xsi:type="PQ" value="6.0" /> <referenceRange> <observationRange> <text>5.0-8.0</text> </observationRange> </ referenceRange> </observation> </component> <component> <observation moodCode="EVN" classCode="OBS"> <templateId root= "216.840.1.865936.1022.4.2" /> <id nullFlavor="NA" /> < code codeSystem="local" code="UPRO" displayName="Protein" /> < statusCode code="completed" /> <effectiveTime value="" /> <value unit="NA" xsi:type="PQ" value="Negative" /> < referenceRange> <observationRange> <text>Negative</text > </observationRange> </referenceRange> </observation > </component> <component> <observation moodCode="EVN" classCode="OBS"> <templateId root="16.840.1.970470.10.22.4.2" /> <id nullFlavor="NA" /> <code codeSystem="local" code="USPG" displayName="Specific [place]" /> <statusCode code="completed" /> <effectiveTime value="" /> <value unit="NA" xsi:type= "PQ" value="1.020" /> <referenceRange> <observationRange> <text>1.003-1.030</text> </observationRange> </ referenceRange> </observation> </component> <component> <observation moodCode="EVN" classCode="OBS"> <templateId root= "10.29.840.1.219820...4.2" /> <id nullFlavor="NA" /> < code codeSystem="local" code="UTYP" displayName="UA Collection type" /> <statusCode code="completed" /> <effectiveTime value="617040203475" / > <value unit="NA" xsi:type="PQ" value="Catheter" /> < referenceRange> <observationRange> <text /> < /observationRange> </referenceRange> </observation> </ component> <component> <observation moodCode="EVN" classCode="OBS"> <templateId root="10.29.840.1.590069.10..4.2" /> <id nullFlavor="NA" /> <code codeSystem="local" code="UURO" displayName= "Urobilinogen" /> <statusCode code="completed" /> < effectiveTime value="" /> <value unit="mg/dL" xsi:type="PQ " value="2.0" /> <interpretationCode codeSystem="local" code="*" /> <referenceRange> <observationRange> <text><1.0 </text> </observationRange> </referenceRange> </ observation> </component> </organizer> </entry> <entry> <organizer moodCode="EVN" classCode="BATTERY"> <templateId root= "16.840.1.631366.10..22.4.1" /> <id nullFlavor="NA" /> <code codeSystem="local" code="UMIC" displayName="Urine Microscopic" /> < statusCode code="completed" /> <component> <observation moodCode= "EVN" classCode="OBS"> <templateId root="216.840.1.040642.07.02.22.4.2 " /> <id nullFlavor="NA" /> <code codeSystem="local" code= "UBAC" displayName="Bacteria" /> <statusCode code="completed" /> <effectiveTime value="" /> <value unit="NA" xsi:type= "PQ" value="None Seen" /> <referenceRange> <observationRange > <text /> </observationRange> </referenceRange > </observation> </component> <component> <observation moodCode="EVN" classCode="OBS"> <templateId root= "16.840.1.578963.07.02.22.4.2" /> <id nullFlavor="NA" /> < code codeSystem="local" code="UEPI" displayName="Epithelial Cells" /> < statusCode code="completed" /> <effectiveTime value="" /> <value unit="/HPF" xsi:type="PQ" value="None Seen" /> < referenceRange> <observationRange> <text /> < /observationRange> </referenceRange> </observation> </ component> <component> <observation moodCode="EVN" classCode="OBS"> <templateId root="16.840.1.533849.10.22.4.2" /> <id nullFlavor="NA" /> <code codeSystem="local" code="URBC" displayName= "RBC, Urine" /> <statusCode code="completed" /> < effectiveTime value="" /> <value unit="/HPF" xsi:type="PQ" value="2" /> <referenceRange> <observationRange> <text>0-2</text> </observationRange> </referenceRange> </observation> </component> <component> <observation moodCode="EVN" classCode="OBS"> <templateId root= "16.840.1.837556.07.02.22.4.2" /> <id nullFlavor="NA" /> < code codeSystem="local" code="UMUC" displayName="Urine Mucus" /> < statusCode code="completed" /> <effectiveTime value="" /> <value unit="NA" xsi:type="PQ" value="Present" /> < referenceRange> <observationRange> <text /> < /observationRange> </referenceRange> </observation> </ component> <component> <observation moodCode="EVN" classCode="OBS"> <templateId root="10.29.840.1.151243.10.22.4.2" /> <id nullFlavor="NA" /> <code codeSystem="local" code="UWBC" displayName= "WBC, Urine" /> <statusCode code="completed" /> < effectiveTime value="" /> <value unit="/HPF" xsi:type="PQ" value="0" /> <referenceRange> <observationRange> <text>0-4</text> </observationRange> </referenceRange> </observation> </component> </organizer> </entry> <entry> < organizer moodCode="EVN" classCode="BATTERY"> <templateId root= "10.29.840.1.117775.10.4.1" /> <id nullFlavor="NA" /> <code codeSystem="local" code="LACID" displayName="Lactic Acid Venous" /> < statusCode code="completed" /> <component> <observation moodCode= "EVN" classCode="OBS"> <templateId root="840.1.525309.07.02.22.4.2 " /> <id nullFlavor="NA" /> <code codeSystem="local" code= "LACID" displayName="Lactic Acid Venous" /> <statusCode code="completed " /> <effectiveTime value="507718805705" /> <value unit="mEq/L " xsi:type="PQ" value="0.9" /> <referenceRange> < observationRange> <text>0.5-2.2</text> </ observationRange> </referenceRange> </observation> </ component> </organizer> </entry> <entry> <organizer moodCode="EVN" classCode="BATTERY"> <templateId root="10.29.840.1.410049.07.02.22.4.1" /> <id nullFlavor="NA" /> <code codeSystem="local" code="CBCWD" displayName="CBC With Platelet and Differential" /> <statusCode code= "completed" /> <component> <observation moodCode="EVN" classCode= "OBS"> <templateId root="10.29.840.1.185586.10.4.2" /> < id nullFlavor="NA" /> <code codeSystem="local" code="ABASR" displayName ="Absolute Basophils" /> <statusCode code="completed" /> < effectiveTime value="" /> <value unit="10*3/uL" xsi:type= "PQ" value="0.01" /> <referenceRange> <observationRange> <text>0.00-0.20</text> </observationRange> </ referenceRange> </observation> </component> <component> <observation moodCode="EVN" classCode="OBS"> <templateId root= "216.840.1.736274.07.02..4.2" /> <id nullFlavor="NA" /> < code codeSystem="local" code="AEOSR" displayName="Absolute Eosinophils" /> <statusCode code="completed" /> <effectiveTime value=" " /> <value unit="10*3/uL" xsi:type="PQ" value="0.05" /> < referenceRange> <observationRange> <text>0.00-0.50</text > </observationRange> </referenceRange> </observation > </component> <component> <observation moodCode="EVN" classCode="OBS"> <templateId root="216.840.1.041281...22.4.2" /> <id nullFlavor="NA" /> <code codeSystem="local" code="ALYMR" displayName="Absolute Lymphocytes" /> <statusCode code="completed" /> <effectiveTime value="" /> <value unit="10*3/uL" xsi:type="PQ" value="1.08" /> <referenceRange> < observationRange> <text>0.80-3.30</text> </ observationRange> </referenceRange> </observation> </ component> <component> <observation moodCode="EVN" classCode="OBS"> <templateId root="216.840.1.038953.07.02.22.4.2" /> <id nullFlavor="NA" /> <code codeSystem="local" code="AMONR" displayName= "Absolute Monocytes" /> <statusCode code="completed" /> < effectiveTime value="" /> <value unit="10*3/uL" xsi:type= "PQ" value="1.23" /> <interpretationCode codeSystem="local" code="*" / > <referenceRange> <observationRange> <text> 0.30-1.00</text> </observationRange> </referenceRange> </observation> </component> <component> <observation moodCode="EVN" classCode="OBS"> <templateId root= "16.840.1.370337.07.02.22.4.2" /> <id nullFlavor="NA" /> < code codeSystem="local" code="ASEGR" displayName="Absolute Neutrophils" /> <statusCode code="completed" /> <effectiveTime value=" " /> <value unit="10*3/uL" xsi:type="PQ" value="12.55" /> < interpretationCode codeSystem="local" code="*" /> <referenceRange> <observationRange> <text>1.90-7.00</text> </ observationRange> </referenceRange> </observation> </ component> <component> <observation moodCode="EVN" classCode="OBS"> <templateId root="16.840.1.459274.10.22.4.2" /> <id nullFlavor="NA" /> <code codeSystem="local" code="BASOR" displayName= "Basophils" /> <statusCode code="completed" /> <effectiveTime value="" /> <value unit="%" xsi:type="PQ" value="0" /> <referenceRange> <observationRange> <text>0-2< /text> </observationRange> </referenceRange> </ observation> </component> <component> <observation moodCode= "EVN" classCode="OBS"> <templateId root="10.29.840.1.762006.10..22.4.2 " /> <id nullFlavor="NA" /> <code codeSystem="local" code= "EOSR" displayName="Eosinophils" /> <statusCode code="completed" /> <effectiveTime value="" /> <value unit="%" xsi: type="PQ" value="0" /> <referenceRange> <observationRange> <text>0-4</text> </observationRange> </ referenceRange> </observation> </component> <component> <observation moodCode="EVN" classCode="OBS"> <templateId root= "10.29.840.1.525487.07.02.22.4.2" /> <id nullFlavor="NA" /> < code codeSystem="local" code="HCT" displayName="HCT" /> <statusCode code="completed" /> <effectiveTime value="" /> < value unit="%" xsi:type="PQ" value="37.7" /> <interpretationCode codeSystem="local" code="*" /> <referenceRange> < observationRange> <text>42.0-52.0</text> </ observationRange> </referenceRange> </observation> </ component> <component> <observation moodCode="EVN" classCode="OBS"> <templateId root="10.29.840.1.351881.10...4.2" /> <id nullFlavor="NA" /> <code codeSystem="local" code="HGB" displayName="HGB " /> <statusCode code="completed" /> <effectiveTime value= "" /> <value unit="g/dL" xsi:type="PQ" value="12.5" /> <interpretationCode codeSystem="local" code="*" /> < referenceRange> <observationRange> <text>14.0-18.0</text > </observationRange> </referenceRange> </observation > </component> <component> <observation moodCode="EVN" classCode="OBS"> <templateId root="2.16.840.1.433547.10..22.4.2" /> <id nullFlavor="NA" /> <code codeSystem="local" code="IMGA" displayName="Immature Granulocytes" /> <statusCode code="completed" /> <effectiveTime value="" /> <value unit="%" xsi:type="PQ" value="1.0" /> <referenceRange> < observationRange> <text>0.0-1.0</text> </ observationRange> </referenceRange> </observation> </ component> <component> <observation moodCode="EVN" classCode="OBS"> <templateId root="2.16.840.1.668859.10..22.4.2" /> <id nullFlavor="NA" /> <code codeSystem="local" code="LYMPR" displayName= "Lymphocytes" /> <statusCode code="completed" /> < effectiveTime value="" /> <value unit="%" xsi:type="PQ " value="7" /> <interpretationCode codeSystem="local" code="*" /> <referenceRange> <observationRange> <text>20-46</ text> </observationRange> </referenceRange> </ observation> </component> <component> <observation moodCode= "EVN" classCode="OBS"> <templateId root="16.840.1.610550.10.20.22.4.2 " /> <id nullFlavor="NA" /> <code codeSystem="local" code="MCH " displayName="MCH" /> <statusCode code="completed" /> < effectiveTime value="" /> <value unit="pg" xsi:type="PQ" value="27.1" /> <referenceRange> <observationRange> <text>27.0-32.0</text> </observationRange> </ referenceRange> </observation> </component> <component> <observation moodCode="EVN" classCode="OBS"> <templateId root= "10.29.840.1.713347..22.4.2" /> <id nullFlavor="NA" /> < code codeSystem="local" code="MCHC" displayName="MCHC" /> <statusCode code="completed" /> <effectiveTime value="" /> < value unit="g/dL" xsi:type="PQ" value="33.2" /> <referenceRange> <observationRange> <text>32.0-36.0</text> </ observationRange> </referenceRange> </observation> </ component> <component> <observation moodCode="EVN" classCode="OBS"> <templateId root="10.29.840.1.708500.10..22.4.2" /> <id nullFlavor="NA" /> <code codeSystem="local" code="MCV" displayName="MCV " /> <statusCode code="completed" /> <effectiveTime value= "" /> <value unit="fL" xsi:type="PQ" value="81.6" /> <interpretationCode codeSystem="local" code="*" /> <referenceRange > <observationRange> <text>82.0-99.0</text> < /observationRange> </referenceRange> </observation> </ component> <component> <observation moodCode="EVN" classCode="OBS"> <templateId root="16.840.1.281941.10.22.4.2" /> <id nullFlavor="NA" /> <code codeSystem="local" code="MONOR" displayName= "Monocytes" /> <statusCode code="completed" /> <effectiveTime value="" /> <value unit="%" xsi:type="PQ" value="8" /> <referenceRange> <observationRange> <text>4-11 </text> </observationRange> </referenceRange> </ observation> </component> <component> <observation moodCode= "EVN" classCode="OBS"> <templateId root="10.29.840.1.943171.07.02.22.4.2 " /> <id nullFlavor="NA" /> <code codeSystem="local" code="MPV " displayName="MPV" /> <statusCode code="completed" /> < effectiveTime value="" /> <value unit="fL" xsi:type="PQ" value="9.1" /> <interpretationCode codeSystem="local" code="*" /> <referenceRange> <observationRange> <text>9.4-12.3< /text> </observationRange> </referenceRange> </ observation> </component> <component> <observation moodCode= "EVN" classCode="OBS"> <templateId root="10.29.840.1.944915.07.02.22.4.2 " /> <id nullFlavor="NA" /> <code codeSystem="local" code= "SEGR" displayName="Neutrophils" /> <statusCode code="completed" /> <effectiveTime value="" /> <value unit="%" xsi: type="PQ" value="83" /> <interpretationCode codeSystem="local" code="* " /> <referenceRange> <observationRange> <text> 51-75</text> </observationRange> </referenceRange> </ observation> </component> <component> <observation moodCode= "EVN" classCode="OBS"> <templateId root="10.29.840.1.980393.10.22.4.2 " /> <id nullFlavor="NA" /> <code codeSystem="local" code= "NRBCA" displayName="Nucleated RBC Automated" /> <statusCode code= "completed" /> <effectiveTime value="" /> <value unit="/100WBC" xsi:type="PQ" value="0.0" /> <referenceRange> <observationRange> <text /> </observationRange> </referenceRange> </observation> </component> <component> <observation moodCode="EVN" classCode="OBS"> <templateId root= "10.29.840.1.589256.22.4.2" /> <id nullFlavor="NA" /> < code codeSystem="local" code="PLT" displayName="Platelet Count" /> < statusCode code="completed" /> <effectiveTime value="" /> <value unit="K/uL" xsi:type="PQ" value="305" /> < referenceRange> <observationRange> <text>150-400</text> </observationRange> </referenceRange> </observation > </component> <component> <observation moodCode="EVN" classCode="OBS"> <templateId root="10.29.840.1.539553.10.22.4.2" /> <id nullFlavor="NA" /> <code codeSystem="local" code="RBC" displayName="RBC" /> <statusCode code="completed" /> < effectiveTime value="" /> <value unit="10*6/uL" xsi:type= "PQ" value="4.62" /> <referenceRange> <observationRange> <text>4.60-6.20</text> </observationRange> </ referenceRange> </observation> </component> <component> <observation moodCode="EVN" classCode="OBS"> <templateId root= "2.16.840.1.815416...22.4.2" /> <id nullFlavor="NA" /> < code codeSystem="local" code="RDW" displayName="RDW" /> <statusCode code="completed" /> <effectiveTime value="" /> < value unit="%" xsi:type="PQ" value="14.1" /> <referenceRange> <observationRange> <text>11.5-14.5</text> </ observationRange> </referenceRange> </observation> </ component> <component> <observation moodCode="EVN" classCode="OBS"> <templateId root="2.16.840.1.993547.10.20.22.4.2" /> <id nullFlavor="NA" /> <code codeSystem="local" code="WBCIR" displayName= "WBC" /> <statusCode code="completed" /> <effectiveTime value= "" /> <value unit="K/uL" xsi:type="PQ" value="15.1" /> <interpretationCode codeSystem="local" code="*" /> < referenceRange> <observationRange> <text>4.8-10.8</text > </observationRange> </referenceRange> </observation > </component> </organizer> </entry> <entry> <organizer moodCode= "EVN" classCode="BATTERY"> <templateId root="10.29.840.1.400863.10...4.1 " /> <id nullFlavor="NA" /> <code codeSystem="local" code="BMP" displayName="Basic Metabolic Panel (BMP)" /> <statusCode code="completed" / > <component> <observation moodCode="EVN" classCode="OBS"> <templateId root="10.29.840.1.056167.10...4.2" /> <id nullFlavor="NA " /> <code codeSystem="local" code="AGAP" displayName="Anion Gap" /> <statusCode code="completed" /> <effectiveTime value= "[id number]" /> <value unit="mEq/L" xsi:type="PQ" value="8" /> <referenceRange> <observationRange> <text>3-20</text > </observationRange> </referenceRange> </observation > </component> <component> <observation moodCode="EVN" classCode="OBS"> <templateId root="16.840.1.987110...4.2" /> <id nullFlavor="NA" /> <code codeSystem="local" code="BUN" displayName="BUN" /> <statusCode code="completed" /> < effectiveTime value="506940660044" /> <value unit="mg/dL" xsi:type="PQ " value="15" /> <referenceRange> <observationRange> <text>4-20</text> </observationRange> </referenceRange > </observation> </component> <component> <observation moodCode="EVN" classCode="OBS"> <templateId root= "10.29.840.1.010807.1022.4.2" /> <id nullFlavor="NA" /> < code codeSystem="local" code="CA" displayName="Calcium" /> <statusCode code="completed" /> <effectiveTime value="484936408876" /> < value unit="mg/dL" xsi:type="PQ" value="8.3" /> <interpretationCode codeSystem="local" code="*" /> <referenceRange> < observationRange> <text>8.6-10.0</text> </ observationRange> </referenceRange> </observation> </ component> <component> <observation moodCode="EVN" classCode="OBS"> <templateId root="10.29.840.1.902237.07.02.22.4.2" /> <id nullFlavor="NA" /> <code codeSystem="local" code="CL" displayName= "Chloride" /> <statusCode code="completed" /> <effectiveTime value="" /> <value unit="mEq/L" xsi:type="PQ" value="96" / > <interpretationCode codeSystem="local" code="*" /> < referenceRange> <observationRange> <text>99-109</text> </observationRange> </referenceRange> </observation> </component> <component> <observation moodCode="EVN" classCode ="OBS"> <templateId root="10.29.840.1.145063.10.22.4.2" /> < id nullFlavor="NA" /> <code codeSystem="local" code="CO2" displayName= "CO2" /> <statusCode code="completed" /> <effectiveTime value= "350037977974" /> <value unit="mEq/L" xsi:type="PQ" value="29" /> <referenceRange> <observationRange> <text>22-32</ text> </observationRange> </referenceRange> </ observation> </component> <component> <observation moodCode= "EVN" classCode="OBS"> <templateId root="216.840.1.714923.10.4.2 " /> <id nullFlavor="NA" /> <code codeSystem="local" code= "CREAT" displayName="Creatinine" /> <statusCode code="completed" /> <effectiveTime value="" /> <value unit="mg/dL" xsi: type="PQ" value="1.04" /> <referenceRange> <observationRange > <text>0.64-1.27</text> </observationRange> </ referenceRange> </observation> </component> <component> <observation moodCode="EVN" classCode="OBS"> <templateId root= "10.29.840.1.472658.07.02.22.4.2" /> <id nullFlavor="NA" /> < code codeSystem="local" code="GLU" displayName="Glucose" /> < statusCode code="completed" /> <effectiveTime value="" /> <value unit="mg/dL" xsi:type="PQ" value="110" /> < interpretationCode codeSystem="local" code="*" /> <referenceRange> <observationRange> <text>70-100</text> </ observationRange> </referenceRange> </observation> </ component> <component> <observation moodCode="EVN" classCode="OBS"> <templateId root="16.840.1.414236...4.2" /> <id nullFlavor="NA" /> <code codeSystem="local" code="K" displayName= "Potassium" /> <statusCode code="completed" /> <effectiveTime value="" /> <value unit="mEq/L" xsi:type="PQ" value="2.9" / > <interpretationCode codeSystem="local" code="*" /> < referenceRange> <observationRange> <text>3.6-5.1</text> </observationRange> </referenceRange> </observation > </component> <component> <observation moodCode="EVN" classCode="OBS"> <templateId root="10.29.840.1.556704.10..4.2" /> <id nullFlavor="NA" /> <code codeSystem="local" code="NA" displayName="Sodium" /> <statusCode code="completed" /> < effectiveTime value="" /> <value unit="mEq/L" xsi:type="PQ " value="133" /> <interpretationCode codeSystem="local" code="*" /> <referenceRange> <observationRange> <text>136-144 </text> </observationRange> </referenceRange> </ observation> </component> </organizer> </entry> <entry> <organizer moodCode="EVN" classCode="BATTERY"> <templateId root= "10.29.840.1.062959...4.1" /> <id nullFlavor="NA" /> <code codeSystem="local" code="MG" displayName="Magnesium" /> <statusCode code= "completed" /> <component> <observation moodCode="EVN" classCode= "OBS"> <templateId root="840.1.371685...4.2" /> < id nullFlavor="NA" /> <code codeSystem="local" code="MG" displayName= "Magnesium" /> <statusCode code="completed" /> <effectiveTime value="" /> <value unit="mg/dL" xsi:type="PQ" value="2.2" / > <referenceRange> <observationRange> <text>1.8 -2.5</text> </observationRange> </referenceRange> </ observation> </component> </organizer> </entry> <entry> <organizer moodCode="EVN" classCode="BATTERY"> <templateId root= "10.29.840.1.907942.07.02.22.4.1" /> <id nullFlavor="NA" /> <code codeSystem="local" code="PHOS" displayName="Phosphorus" /> <statusCode code ="completed" /> <component> <observation moodCode="EVN" classCode= "OBS"> <templateId root="16.840.1.870264...4.2" /> < id nullFlavor="NA" /> <code codeSystem="local" code="PHOS" displayName= "Phosphorus" /> <statusCode code="completed" /> < effectiveTime value="093800434110" /> <value unit="mg/dL" xsi:type="PQ " value="3.0" /> <referenceRange> <observationRange> <text>2.4-4.7</text> </observationRange> </ referenceRange> </observation> </component> </organizer> </entry > <entry> <organizer moodCode="EVN" classCode="BATTERY"> <templateId root="16.840.1.306730.07.02.22.4.1" /> <id nullFlavor="NA" /> <code codeSystem="local" code="GFR" displayName="eGFR" /> <statusCode code= "completed" /> <component> <observation moodCode="EVN" classCode= "OBS"> <templateId root="10.29.840.1.623693.10..22.4.2" /> < id nullFlavor="NA" /> <code codeSystem="local" code="GFR" displayName= "eGFR" /> <statusCode code="completed" /> <effectiveTime value ="028601095533" /> <value unit="mL/min" xsi:type="PQ" value=">60" / > <referenceRange> <observationRange> <text>&gt ;60</text> </observationRange> </referenceRange> </ observation> </component> </organizer> </entry> <entry> <organizer moodCode="EVN" classCode="BATTERY"> <templateId root= "216.840.1.859489.10..22.4.1" /> <id nullFlavor="NA" /> <code codeSystem="local" code="CPK" displayName="Creatine Kinase (CPK)" /> < statusCode code="completed" /> <component> <observation moodCode= "EVN" classCode="OBS"> <templateId root="2.16.840.1.715177.10..22.4.2 " /> <id nullFlavor="NA" /> <code codeSystem="local" code="CPK " displayName="Creatine Kinase (CPK)" /> <statusCode code="completed" / > <effectiveTime value="257707349668" /> <value unit="U/L" xsi :type="PQ" value="22" /> <interpretationCode codeSystem="local" code="* " /> <referenceRange> <observationRange> <text> 49-397</text> </observationRange> </referenceRange> < /observation> </component> </organizer> </entry> <entry> < organizer moodCode="EVN" classCode="BATTERY"> <templateId root= "2.16.840.1.597937.07.02.22.4.1" /> <id nullFlavor="NA" /> <code codeSystem="local" code="PCT" displayName="Procalcitonin" /> <statusCode code="completed" /> <component> <observation moodCode="EVN" classCode="OBS"> <templateId root="840.1.607553.07.02.22.4.2" /> <id nullFlavor="NA" /> <code codeSystem="local" code="PCT" displayName="Procalcitonin" /> <statusCode code="completed" /> <effectiveTime value="845297413271" /> <value unit="ng/mL" xsi:type= "PQ" value="0.75" /> <interpretationCode codeSystem="local" code="*" / > <referenceRange> <observationRange> <text> 0.00-0.09</text> </observationRange> </referenceRange> </observation> </component> </organizer> </entry> <entry> < organizer moodCode="EVN" classCode="BATTERY"> <templateId root= "840.1.757559.07.02.22.4.1" /> <id nullFlavor="NA" /> <code codeSystem="local" code="LIPID" displayName="Lipid Panel" /> <statusCode code="completed" /> <component> <observation moodCode="EVN" classCode="OBS"> <templateId root="840.1.875277.07.02.22.4.2" /> <id nullFlavor="NA" /> <code codeSystem="local" code="CHR" displayName="Cardiac Risk" /> <statusCode code="completed" /> <effectiveTime value="768982961625" /> <value unit="" xsi:type="PQ" value="5.8" /> <interpretationCode codeSystem="local" code="*" /> <referenceRange> <observationRange> <text>0.0-5.7</ text> </observationRange> </referenceRange> </ observation> </component> <component> <observation moodCode= "EVN" classCode="OBS"> <templateId root="16.840.1.718113.10..22.4.2 " /> <id nullFlavor="NA" /> <code codeSystem="local" code= "CHOL" displayName="Cholesterol" /> <statusCode code="completed" /> <effectiveTime value="073776298541" /> <value unit="mg/dL" xsi: type="PQ" value="111" /> <referenceRange> <observationRange > <text>0-199</text> </observationRange> </ referenceRange> </observation> </component> <component> <observation moodCode="EVN" classCode="OBS"> <templateId root= "840.1.822735.10...4.2" /> <id nullFlavor="NA" /> < code codeSystem="local" code="HDL" displayName="HDL Cholesterol" /> < statusCode code="completed" /> <effectiveTime value="145003033076" /> <value unit="mg/dL" xsi:type="PQ" value="19" /> < interpretationCode codeSystem="local" code="*" /> <referenceRange> <observationRange> <text>40-84</text> </ observationRange> </referenceRange> </observation> </ component> <component> <observation moodCode="EVN" classCode="OBS"> <templateId root="10.29.840.1.867611.10.20.22.4.2" /> <id nullFlavor="NA" /> <code codeSystem="local" code="LDL" displayName=" LDL Cholesterol" /> <statusCode code="completed" /> < effectiveTime value="158066290077" /> <value unit="mg/dL" xsi:type="PQ " value="74" /> <referenceRange> <observationRange> <text>0-130</text> </observationRange> </ referenceRange> </observation> </component> <component> <observation moodCode="EVN" classCode="OBS"> <templateId root= "216.840.1.509662.10.20.22.4.2" /> <id nullFlavor="NA" /> < code codeSystem="local" code="TRIG" displayName="Triglycerides" /> < statusCode code="completed" /> <effectiveTime value="012209410622" /> <value unit="mg/dL" xsi:type="PQ" value="88" /> < referenceRange> <observationRange> <text>0-149</text> </observationRange> </referenceRange> </observation> </component> <component> <observation moodCode="EVN" classCode= "OBS"> <templateId root="216.840.1.918280.10.20.22.4.2" /> < id nullFlavor="NA" /> <code codeSystem="local" code="VLDL" displayName= "VLDL Cholesterol" /> <statusCode code="completed" /> < effectiveTime value="096699202559" /> <value unit="mg/dL" xsi:type="PQ " value="18" /> <referenceRange> <observationRange> <text>0-28</text> </observationRange> </referenceRange > </observation> </component> </organizer> </entry> <entry> <organizer moodCode="EVN" classCode="BATTERY"> <templateId root= "216840.1.128998.07.02.22.4.1" /> <id nullFlavor="NA" /> <code codeSystem="local" code="TSHR" displayName="TSH with Reflex Free T4" /> < statusCode code="completed" /> <component> <observation moodCode= "EVN" classCode="OBS"> <templateId root="840.1.808111.07.02.22.4.2 " /> <id nullFlavor="NA" /> <code codeSystem="local" code= "TSHR" displayName="TSH with Reflex Free T4" /> <statusCode code= "completed" /> <effectiveTime value="665427086275" /> <value unit="uIU/mL" xsi:type="PQ" value="0.18" /> <interpretationCode codeSystem="local" code="*" /> <referenceRange> < observationRange> <text>0.35-4.94</text> </ observationRange> </referenceRange> </observation> </ component> </organizer> </entry> <entry> <organizer moodCode="EVN" classCode="BATTERY"> <templateId root="840.1.702597.07.02.22.4.1" /> <id nullFlavor="NA" /> <code codeSystem="local" code="LIPID" displayName="Lipid Panel" /> <statusCode code="completed" /> < component> <observation moodCode="EVN" classCode="OBS"> < templateId root="840.1.834422.07.02.22.4.2" /> <id nullFlavor="NA " /> <code codeSystem="local" code="CHR" displayName="Cardiac Risk" /> <statusCode code="completed" /> <effectiveTime value= "630961118292" /> <value unit="" xsi:type="PQ" value="4.6" /> <referenceRange> <observationRange> <text>0.0-5.7</text > </observationRange> </referenceRange> </observation > </component> <component> <observation moodCode="EVN" classCode="OBS"> <templateId root="16.840.1.429054.10.20.22.4.2" /> <id nullFlavor="NA" /> <code codeSystem="local" code="CHOL" displayName="Cholesterol" /> <statusCode code="completed" /> < effectiveTime value="889679448978" /> <value unit="mg/dL" xsi:type="PQ " value="110" /> <referenceRange> <observationRange> <text>0-199</text> </observationRange> </ referenceRange> </observation> </component> <component> <observation moodCode="EVN" classCode="OBS"> <templateId root= "10.29.840.1.421945.10...4.2" /> <id nullFlavor="NA" /> < code codeSystem="local" code="HDL" displayName="HDL Cholesterol" /> < statusCode code="completed" /> <effectiveTime value="648867126741" /> <value unit="mg/dL" xsi:type="PQ" value="24" /> < interpretationCode codeSystem="local" code="*" /> <referenceRange> <observationRange> <text>40-84</text> </ observationRange> </referenceRange> </observation> </ component> <component> <observation moodCode="EVN" classCode="OBS"> <templateId root="10.29.840.1.361515.10.20.22.4.2" /> <id nullFlavor="NA" /> <code codeSystem="local" code="LDL" displayName=" LDL Cholesterol" /> <statusCode code="completed" /> < effectiveTime value="450785032765" /> <value unit="mg/dL" xsi:type="PQ " value="73" /> <referenceRange> <observationRange> <text>0-130</text> </observationRange> </ referenceRange> </observation> </component> <component> <observation moodCode="EVN" classCode="OBS"> <templateId root= "216.840.1.554547.10...4.2" /> <id nullFlavor="NA" /> < code codeSystem="local" code="TRIG" displayName="Triglycerides" /> < statusCode code="completed" /> <effectiveTime value="074649025860" /> <value unit="mg/dL" xsi:type="PQ" value="67" /> < referenceRange> <observationRange> <text>0-149</text> </observationRange> </referenceRange> </observation> </component> <component> <observation moodCode="EVN" classCode= "OBS"> <templateId root="216.840.1.141030.10..4.2" /> < id nullFlavor="NA" /> <code codeSystem="local" code="VLDL" displayName= "VLDL Cholesterol" /> <statusCode code="completed" /> < effectiveTime value="406797063864" /> <value unit="mg/dL" xsi:type="PQ " value="13" /> <referenceRange> <observationRange> <text>0-28</text> </observationRange> </referenceRange > </observation> </component> </organizer> </entry> <entry> <organizer moodCode="EVN" classCode="BATTERY"> <templateId root= "2.16.840.1.547420.10..4.1" /> <id nullFlavor="NA" /> <code codeSystem="local" code="B12" displayName="Vitamin B12" /> <statusCode code ="completed" /> <component> <observation moodCode="EVN" classCode= "OBS"> <templateId root="16.840.1.651897.10.4.2" /> < id nullFlavor="NA" /> <code codeSystem="local" code="B12" displayName= "Vitamin B12" /> <statusCode code="completed" /> < effectiveTime value="009711685553" /> <value unit="pg/mL" xsi:type="PQ " value="459" /> <referenceRange> <observationRange> <text>213-816</text> </observationRange> </ referenceRange> </observation> </component> </organizer> </entry > <entry> <organizer moodCode="EVN" classCode="BATTERY"> <templateId root="10.29.840.1.051097.07.02.22.4.1" /> <id nullFlavor="NA" /> <code codeSystem="local" code="FT4" displayName="Free T4" /> <statusCode code= "completed" /> <component> <observation moodCode="EVN" classCode= "OBS"> <templateId root="10.29.840.1.389872.10.4.2" /> < id nullFlavor="NA" /> <code codeSystem="local" code="FT4" displayName= "Free T4" /> <statusCode code="completed" /> <effectiveTime value="121875490249" /> <value unit="ng/dL" xsi:type="PQ" value="1.3" / > <referenceRange> <observationRange> <text>0.7 -1.5</text> </observationRange> </referenceRange> </ observation> </component> </organizer> </entry> <entry> <organizer moodCode="EVN" classCode="BATTERY"> <templateId root= "10.29.840.1.510845.07.02.22.4.1" /> <id nullFlavor="NA" /> <code codeSystem="local" code="RPR" displayName="RPR" /> <statusCode code= "completed" /> <component> <observation moodCode="EVN" classCode= "OBS"> <templateId root="840.1.619121.07.02.224.2" /> < id nullFlavor="NA" /> <code codeSystem="local" code="RPR" displayName= "RPR" /> <statusCode code="completed" /> <effectiveTime value= "110195042141" /> <value unit="NA" xsi:type="PQ" value="Non-reactive" / > <referenceRange> <observationRange> <text /> </observationRange> </referenceRange> </observation > </component> </organizer> </entry> <entry> <organizer moodCode= "EVN" classCode="BATTERY"> <templateId root="840.1.053710.07.02.22.4.1 " /> <id nullFlavor="NA" /> <code codeSystem="local" code="HA1C" displayName="Hemoglobin A1C" /> <statusCode code="completed" /> < component> <observation moodCode="EVN" classCode="OBS"> < templateId root="10.29.840.1.732747.07.02.22.4.2" /> <id nullFlavor="NA " /> <code codeSystem="local" code="HA1C" displayName="Hemoglobin A1C" /> <statusCode code="completed" /> <effectiveTime value= "275757773053" /> <value unit="%" xsi:type="PQ" value="5.9" /> <interpretationCode codeSystem="local" code="*" /> < referenceRange> <observationRange> <text>4.1-5.6</text> </observationRange> </referenceRange> </observation > </component> </organizer> </entry> <entry> <organizer moodCode= "EVN" classCode="BATTERY"> <templateId root="16.840.1.853779.10..22.4.1 " /> <id nullFlavor="NA" /> <code codeSystem="local" code="EAG" displayName="Estimated Average Glucose" /> <statusCode code="completed" /> <component> <observation moodCode="EVN" classCode="OBS"> < templateId root="16.840.1.220457.10..22.4.2" /> <id nullFlavor="NA " /> <code codeSystem="local" code="EAG" displayName="Estimated Average Glucose" /> <statusCode code="completed" /> < effectiveTime value="982960411088" /> <value unit="mg/dL" xsi:type="PQ " value="122.6" /> <referenceRange> <observationRange> <text /> </observationRange> </referenceRange> </observation> </component> </organizer> </entry> <entry> < organizer moodCode="EVN" classCode="BATTERY"> <templateId root= "16.840.1.552966.10.20.22.4.1" /> <id nullFlavor="NA" /> <code codeSystem="local" code="25OHD" displayName="Vitamin D, 25-Hydroxy" /> < statusCode code="completed" /> <component> <observation moodCode= "EVN" classCode="OBS"> <templateId root="216.840.1.984306.10.20.22.4.2 " /> <id nullFlavor="NA" /> <code codeSystem="local" code= "VITDT" displayName="25-Hydroxy D Total" /> <statusCode code="completed " /> <effectiveTime value="144009229737" /> <value unit="ng/mL " xsi:type="PQ" value="46" /> <referenceRange> < observationRange> <text>30-100</text> </observationRange > </referenceRange> </observation> </component> </ organizer> </entry> <entry> <organizer moodCode="EVN" classCode="BATTERY"> <templateId root="216.840.1.284950.10.20.22.4.1" /> <id nullFlavor= "NA" /> <code codeSystem="local" code="CBCND" displayName="CBC With Platelet No Differential" /> <statusCode code="completed" /> < component> <observation moodCode="EVN" classCode="OBS"> < templateId root="216.840.1.678804.10.20.22.4.2" /> <id nullFlavor="NA " /> <code codeSystem="local" code="HCT" displayName="HCT" /> <statusCode code="completed" /> <effectiveTime value="162960732331" /> <value unit="%" xsi:type="PQ" value="36.3" /> < interpretationCode codeSystem="local" code="*" /> <referenceRange> <observationRange> <text>42.0-52.0</text> </ observationRange> </referenceRange> </observation> </ component> <component> <observation moodCode="EVN" classCode="OBS"> <templateId root="216.840.1.884502.10.20.22.4.2" /> <id nullFlavor="NA" /> <code codeSystem="local" code="HGB" displayName="HGB " /> <statusCode code="completed" /> <effectiveTime value= "742115804629" /> <value unit="g/dL" xsi:type="PQ" value="12.0" /> <interpretationCode codeSystem="local" code="*" /> < referenceRange> <observationRange> <text>14.0-18.0</text > </observationRange> </referenceRange> </observation > </component> <component> <observation moodCode="EVN" classCode="OBS"> <templateId root="216.840.1.210480.10..4.2" /> <id nullFlavor="NA" /> <code codeSystem="local" code="MCH" displayName="MCH" /> <statusCode code="completed" /> < effectiveTime value="052690490672" /> <value unit="pg" xsi:type="PQ" value="27.1" /> <referenceRange> <observationRange> <text>27.0-32.0</text> </observationRange> </ referenceRange> </observation> </component> <component> <observation moodCode="EVN" classCode="OBS"> <templateId root= "16.840.1.616409.10.20.22.4.2" /> <id nullFlavor="NA" /> < code codeSystem="local" code="MCHC" displayName="MCHC" /> <statusCode code="completed" /> <effectiveTime value="414015796039" /> < value unit="g/dL" xsi:type="PQ" value="33.1" /> <referenceRange> <observationRange> <text>32.0-36.0</text> </ observationRange> </referenceRange> </observation> </ component> <component> <observation moodCode="EVN" classCode="OBS"> <templateId root="10.29.840.1.585369.10.22.4.2" /> <id nullFlavor="NA" /> <code codeSystem="local" code="MCV" displayName="MCV " /> <statusCode code="completed" /> <effectiveTime value= "191887046866" /> <value unit="fL" xsi:type="PQ" value="82.1" /> <referenceRange> <observationRange> <text>82.0-99.0< /text> </observationRange> </referenceRange> </ observation> </component> <component> <observation moodCode= "EVN" classCode="OBS"> <templateId root="10.29.840.1.540500.07.02.22.4.2 " /> <id nullFlavor="NA" /> <code codeSystem="local" code="MPV " displayName="MPV" /> <statusCode code="completed" /> < effectiveTime value="407694165588" /> <value unit="fL" xsi:type="PQ" value="8.7" /> <interpretationCode codeSystem="local" code="*" /> <referenceRange> <observationRange> <text>9.4-12.3< /text> </observationRange> </referenceRange> </ observation> </component> <component> <observation moodCode= "EVN" classCode="OBS"> <templateId root="10.29.840.1.184156..22.4.2 " /> <id nullFlavor="NA" /> <code codeSystem="local" code="PLT " displayName="Platelet Count" /> <statusCode code="completed" /> <effectiveTime value="571617844437" /> <value unit="K/uL" xsi:type ="PQ" value="261" /> <referenceRange> <observationRange> <text>150-400</text> </observationRange> </ referenceRange> </observation> </component> <component> <observation moodCode="EVN" classCode="OBS"> <templateId root= "216.840.1.336163.10.20.22.4.2" /> <id nullFlavor="NA" /> < code codeSystem="local" code="RBC" displayName="RBC" /> <statusCode code="completed" /> <effectiveTime value="706793834222" /> < value unit="10*6/uL" xsi:type="PQ" value="4.42" /> <interpretationCode codeSystem="local" code="*" /> <referenceRange> < observationRange> <text>4.60-6.20</text> </ observationRange> </referenceRange> </observation> </ component> <component> <observation moodCode="EVN" classCode="OBS"> <templateId root="10.29.840.1.646769.20.22.4.2" /> <id nullFlavor="NA" /> <code codeSystem="local" code="RDW" displayName="RDW " /> <statusCode code="completed" /> <effectiveTime value= "748241755788" /> <value unit="%" xsi:type="PQ" value="14.2" /> <referenceRange> <observationRange> <text>11.5- 14.5</text> </observationRange> </referenceRange> </ observation> </component> <component> <observation moodCode= "EVN" classCode="OBS"> <templateId root="10.29.840.1.623194.22.4.2 " /> <id nullFlavor="NA" /> <code codeSystem="local" code= "WBCIR" displayName="WBC" /> <statusCode code="completed" /> < effectiveTime value="957908012054" /> <value unit="K/uL" xsi:type="PQ" value="16.0" /> <interpretationCode codeSystem="local" code="*" /> <referenceRange> <observationRange> <text>4.8-10.8 </text> </observationRange> </referenceRange> </ observation> </component> </organizer> </entry> <entry> <organizer moodCode="EVN" classCode="BATTERY"> <templateId root= "216.840.1.719127.22.4.1" /> <id nullFlavor="NA" /> <code codeSystem="local" code="RENAL" displayName="Renal Function Panel" /> < statusCode code="completed" /> <component> <observation moodCode= "EVN" classCode="OBS"> <templateId root="2.16.840.1.816188.07.02.22.4.2 " /> <id nullFlavor="NA" /> <code codeSystem="local" code="ALB " displayName="Albumin" /> <statusCode code="completed" /> < effectiveTime value="701383813075" /> <value unit="g/dL" xsi:type="PQ" value="2.1" /> <interpretationCode codeSystem="local" code="*" /> <referenceRange> <observationRange> <text>3.5-4.8</ text> </observationRange> </referenceRange> </ observation> </component> <component> <observation moodCode= "EVN" classCode="OBS"> <templateId root="216.840.1.917814.07.02.22.4.2 " /> <id nullFlavor="NA" /> <code codeSystem="local" code= "AGAP" displayName="Anion Gap" /> <statusCode code="completed" /> <effectiveTime value="" /> <value unit="mEq/L" xsi: type="PQ" value="8" /> <referenceRange> <observationRange> <text>3-20</text> </observationRange> </ referenceRange> </observation> </component> <component> <observation moodCode="EVN" classCode="OBS"> <templateId root= "216.840.1.414849.07.02.22.4.2" /> <id nullFlavor="NA" /> < code codeSystem="local" code="BUN" displayName="BUN" /> <statusCode code="completed" /> <effectiveTime value="" /> < value unit="mg/dL" xsi:type="PQ" value="15" /> <referenceRange> <observationRange> <text>4-20</text> </ observationRange> </referenceRange> </observation> </ component> <component> <observation moodCode="EVN" classCode="OBS"> <templateId root="216.840.1.546361.07.02.22.4.2" /> <id nullFlavor="NA" /> <code codeSystem="local" code="CA" displayName= "Calcium" /> <statusCode code="completed" /> <effectiveTime value="" /> <value unit="mg/dL" xsi:type="PQ" value="8.4" / > <interpretationCode codeSystem="local" code="*" /> < referenceRange> <observationRange> <text>8.6-10.0</text > </observationRange> </referenceRange> </observation > </component> <component> <observation moodCode="EVN" classCode="OBS"> <templateId root="216.840.1.702074.10.22.4.2" /> <id nullFlavor="NA" /> <code codeSystem="local" code="CL" displayName="Chloride" /> <statusCode code="completed" /> < effectiveTime value="" /> <value unit="mEq/L" xsi:type="PQ " value="101" /> <referenceRange> <observationRange> <text>99-109</text> </observationRange> </ referenceRange> </observation> </component> <component> <observation moodCode="EVN" classCode="OBS"> <templateId root= "216.840.1.675005.10..4.2" /> <id nullFlavor="NA" /> < code codeSystem="local" code="CO2" displayName="CO2" /> <statusCode code="completed" /> <effectiveTime value="" /> < value unit="mEq/L" xsi:type="PQ" value="25" /> <referenceRange> <observationRange> <text>22-32</text> </ observationRange> </referenceRange> </observation> </ component> <component> <observation moodCode="EVN" classCode="OBS"> <templateId root="16.840.1.017388.10.20.22.4.2" /> <id nullFlavor="NA" /> <code codeSystem="local" code="CREAT" displayName= "Creatinine" /> <statusCode code="completed" /> < effectiveTime value="637281012114" /> <value unit="mg/dL" xsi:type="PQ " value="1.00" /> <referenceRange> <observationRange> <text>0.64-1.27</text> </observationRange> </ referenceRange> </observation> </component> <component> <observation moodCode="EVN" classCode="OBS"> <templateId root= "10.29.840.1.383444.10.20.22.4.2" /> <id nullFlavor="NA" /> < code codeSystem="local" code="GLU" displayName="Glucose" /> < statusCode code="completed" /> <effectiveTime value="719092457333" /> <value unit="mg/dL" xsi:type="PQ" value="109" /> < interpretationCode codeSystem="local" code="*" /> <referenceRange> <observationRange> <text>70-100</text> </ observationRange> </referenceRange> </observation> </ component> <component> <observation moodCode="EVN" classCode="OBS"> <templateId root="840.1.680430.10..22.4.2" /> <id nullFlavor="NA" /> <code codeSystem="local" code="PHOS" displayName= "Phosphorus" /> <statusCode code="completed" /> < effectiveTime value="722622625556" /> <value unit="mg/dL" xsi:type="PQ " value="2.5" /> <referenceRange> <observationRange> <text>2.4-4.7</text> </observationRange> </ referenceRange> </observation> </component> <component> <observation moodCode="EVN" classCode="OBS"> <templateId root= "840.1.313393.10.20.22.4.2" /> <id nullFlavor="NA" /> < code codeSystem="local" code="K" displayName="Potassium" /> < statusCode code="completed" /> <effectiveTime value="691578529791" /> <value unit="mEq/L" xsi:type="PQ" value="3.9" /> < referenceRange> <observationRange> <text>3.6-5.1</text> </observationRange> </referenceRange> </observation > </component> <component> <observation moodCode="EVN" classCode="OBS"> <templateId root="840.1.004221.07.02.22.4.2" /> <id nullFlavor="NA" /> <code codeSystem="local" code="NA" displayName="Sodium" /> <statusCode code="completed" /> < effectiveTime value="875417443263" /> <value unit="mEq/L" xsi:type="PQ " value="134" /> <interpretationCode codeSystem="local" code="*" /> <referenceRange> <observationRange> <text>136-144 </text> </observationRange> </referenceRange> </ observation> </component> </organizer> </entry> <entry> <organizer moodCode="EVN" classCode="BATTERY"> <templateId root= "840.1.309457.07.02.22.4.1" /> <id nullFlavor="NA" /> <code codeSystem="local" code="MG" displayName="Magnesium" /> <statusCode code= "completed" /> <component> <observation moodCode="EVN" classCode= "OBS"> <templateId root="840.1.847204.07.02.22.4.2" /> < id nullFlavor="NA" /> <code codeSystem="local" code="MG" displayName= "Magnesium" /> <statusCode code="completed" /> <effectiveTime value="698210492604" /> <value unit="mg/dL" xsi:type="PQ" value="2.1" / > <referenceRange> <observationRange> <text>1.8 -2.5</text> </observationRange> </referenceRange> </ observation> </component> </organizer> </entry> <entry> <organizer moodCode="EVN" classCode="BATTERY"> <templateId root= "10.29.840.1.112653.07.02.22.4.1" /> <id nullFlavor="NA" /> <code codeSystem="local" code="GFR" displayName="eGFR" /> <statusCode code= "completed" /> <component> <observation moodCode="EVN" classCode= "OBS"> <templateId root="16.840.1.119934.07.02.22.4.2" /> < id nullFlavor="NA" /> <code codeSystem="local" code="GFR" displayName= "eGFR" /> <statusCode code="completed" /> <effectiveTime value ="802801106025" /> <value unit="mL/min" xsi:type="PQ" value=">60" / > <referenceRange> <observationRange> <text>&gt ;60</text> </observationRange> </referenceRange> </ observation> </component> </organizer> </entry> <entry> <organizer moodCode="EVN" classCode="BATTERY"> <templateId root= "16.840.1.767135.07.02.22.4.1" /> <id nullFlavor="NA" /> <code codeSystem="local" code="LSPBA" displayName="Flow, Basic LSP" /> < statusCode code="completed" /> <component> <observation moodCode= "EVN" classCode="OBS"> <templateId root="10.29.840.1.852362.10.22.4.2 " /> <id nullFlavor="NA" /> <code codeSystem="local" code= "CD19" displayName="CD19 (B Cells)" /> <statusCode code="completed" /> <effectiveTime value="814586272542" /> <value unit="%" xsi:type="PQ" value="6.8" /> <interpretationCode codeSystem="local" code="*" /> <referenceRange> <observationRange> <text>7.0-23.0</text> </observationRange> </referenceRange > </observation> </component> <component> <observation moodCode="EVN" classCode="OBS"> <templateId root= "10.29.840.1.379483.07.02.22.4.2" /> <id nullFlavor="NA" /> < code codeSystem="local" code="CD19A" displayName="CD19 Absolute" /> < statusCode code="completed" /> <effectiveTime value="" /> <value unit="Cells/mm3" xsi:type="PQ" value="65" /> < interpretationCode codeSystem="local" code="*" /> <referenceRange> <observationRange> <text>100-600</text> </ observationRange> </referenceRange> </observation> </ component> <component> <observation moodCode="EVN" classCode="OBS"> <templateId root="840.1.271991.10..4.2" /> <id nullFlavor="NA" /> <code codeSystem="local" code="CD3A" displayName= "CD3 Absolute" /> <statusCode code="completed" /> < effectiveTime value="850137606182" /> <value unit="Cells/mm3" xsi:type= "PQ" value="756" /> <interpretationCode codeSystem="local" code="*" /> <referenceRange> <observationRange> <text>950- 2350</text> </observationRange> </referenceRange> </ observation> </component> <component> <observation moodCode= "EVN" classCode="OBS"> <templateId root="216.840.1.952522.10.20.22.4.2 " /> <id nullFlavor="NA" /> <code codeSystem="local" code="CD3 " displayName="CD3 Peripheral T Cells" /> <statusCode code="completed" /> <effectiveTime value="860386260951" /> <value unit="%" xsi:type="PQ" value="78.8" /> <referenceRange> < observationRange> <text>60.0-85.0</text> </ observationRange> </referenceRange> </observation> </ component> <component> <observation moodCode="EVN" classCode="OBS"> <templateId root="10.29.840.1.499367.10.20.22.4.2" /> <id nullFlavor="NA" /> <code codeSystem="local" code="CD4AN" displayName= "CD4 Absolute" /> <statusCode code="completed" /> < effectiveTime value="227969640799" /> <value unit="Cells/mm3" xsi:type= "PQ" value="627" /> <referenceRange> <observationRange> <text>540-1600</text> </observationRange> </ referenceRange> </observation> </component> <component> <observation moodCode="EVN" classCode="OBS"> <templateId root= "10.29.840.1.712395.10.20.22.4.2" /> <id nullFlavor="NA" /> < code codeSystem="local" code="CD4N" displayName="CD4 Crosby T Cell" /> <statusCode code="completed" /> <effectiveTime value="730437504405" /> <value unit="%" xsi:type="PQ" value="65.3" /> < interpretationCode codeSystem="local" code="*" /> <referenceRange> <observationRange> <text>29.0-59.0</text> </ observationRange> </referenceRange> </observation> </ component> <component> <observation moodCode="EVN" classCode="OBS"> <templateId root="2.16.840.1.197060.10.20.22.4.2" /> <id nullFlavor="NA" /> <code codeSystem="local" code="CD4N8" displayName= "CD4:CD8 Ratio" /> <statusCode code="completed" /> < effectiveTime value="612803774835" /> <value unit="" xsi:type="PQ" value="4.98" /> <interpretationCode codeSystem="local" code="*" /> <referenceRange> <observationRange> <text>1.00- 2.90</text> </observationRange> </referenceRange> </ observation> </component> <component> <observation moodCode= "EVN" classCode="OBS"> <templateId root="216.840.1.284511.10.20.22.4.2 " /> <id nullFlavor="NA" /> <code codeSystem="local" code= "CD56" displayName="CD56" /> <statusCode code="completed" /> < effectiveTime value="995231161508" /> <value unit="%" xsi:type="PQ " value="12.1" /> <referenceRange> <observationRange> <text>6.0-29.0</text> </observationRange> </ referenceRange> </observation> </component> <component> <observation moodCode="EVN" classCode="OBS"> <templateId root= "216.840.1.191663.10.20.22.4.2" /> <id nullFlavor="NA" /> < code codeSystem="local" code="CD56A" displayName="CD56 Absolute" /> < statusCode code="completed" /> <effectiveTime value="" /> <value unit="Cells/mm3" xsi:type="PQ" value="116" /> < referenceRange> <observationRange> <text>100-600</text> </observationRange> </referenceRange> </observation > </component> <component> <observation moodCode="EVN" classCode="OBS"> <templateId root="216.840.1.738264.10..22.4.2" /> <id nullFlavor="NA" /> <code codeSystem="local" code="CD8A" displayName="CD8 Absolute" /> <statusCode code="completed" /> <effectiveTime value="" /> <value unit="Cells/mm3" xsi:type ="PQ" value="126" /> <interpretationCode codeSystem="local" code="*" / > <referenceRange> <observationRange> <text>300 -900</text> </observationRange> </referenceRange> </ observation> </component> <component> <observation moodCode= "EVN" classCode="OBS"> <templateId root="16.840.1.945704.10.20.22.4.2 " /> <id nullFlavor="NA" /> <code codeSystem="local" code="CD8 " displayName="CD8 Suppressor T Cells" /> <statusCode code="completed" /> <effectiveTime value="" /> <value unit="%" xsi:type="PQ" value="13.1" /> <interpretationCode codeSystem="local" code="*" /> <referenceRange> <observationRange> <text>18.0-36.0</text> </observationRange> </ referenceRange> </observation> </component> <component> <observation moodCode="EVN" classCode="OBS"> <templateId root= "840.1.038689.22.4.2" /> <id nullFlavor="NA" /> < code codeSystem="local" code="LYMAB" displayName="Lymphocytes, Absolute" /> <statusCode code="completed" /> <effectiveTime value= "545295153903" /> <value unit="mm3" xsi:type="PQ" value="960" /> <interpretationCode codeSystem="local" code="*" /> <referenceRange > <observationRange> <text>2597-2635</text> < /observationRange> </referenceRange> </observation> </ component> </organizer> </entry> <entry> <organizer moodCode="EVN" classCode="BATTERY"> <templateId root="840.1.296346.22.4.1" /> <id nullFlavor="NA" /> <code codeSystem="local" code="CBCND" displayName="CBC With Platelet No Differential" /> <statusCode code= "completed" /> <component> <observation moodCode="EVN" classCode= "OBS"> <templateId root="840.1.196342.102022.4.2" /> < id nullFlavor="NA" /> <code codeSystem="local" code="HCT" displayName= "HCT" /> <statusCode code="completed" /> <effectiveTime value= "963406540029" /> <value unit="%" xsi:type="PQ" value="38.6" /> <interpretationCode codeSystem="local" code="*" /> < referenceRange> <observationRange> <text>42.0-52.0</text > </observationRange> </referenceRange> </observation > </component> <component> <observation moodCode="EVN" classCode="OBS"> <templateId root="216.840.1.927527.1022.4.2" /> <id nullFlavor="NA" /> <code codeSystem="local" code="HGB" displayName="HGB" /> <statusCode code="completed" /> < effectiveTime value="" /> <value unit="g/dL" xsi:type="PQ" value="12.7" /> <interpretationCode codeSystem="local" code="*" /> <referenceRange> <observationRange> <text>14.0- 18.0</text> </observationRange> </referenceRange> </ observation> </component> <component> <observation moodCode= "EVN" classCode="OBS"> <templateId root="10.29.840.1.826460.07.02.22.4.2 " /> <id nullFlavor="NA" /> <code codeSystem="local" code="MCH " displayName="MCH" /> <statusCode code="completed" /> < effectiveTime value="" /> <value unit="pg" xsi:type="PQ" value="27.3" /> <referenceRange> <observationRange> <text>27.0-32.0</text> </observationRange> </ referenceRange> </observation> </component> <component> <observation moodCode="EVN" classCode="OBS"> <templateId root= "216.840.1.734639.22.4.2" /> <id nullFlavor="NA" /> < code codeSystem="local" code="MCHC" displayName="MCHC" /> <statusCode code="completed" /> <effectiveTime value="" /> < value unit="g/dL" xsi:type="PQ" value="32.9" /> <referenceRange> <observationRange> <text>32.0-36.0</text> </ observationRange> </referenceRange> </observation> </ component> <component> <observation moodCode="EVN" classCode="OBS"> <templateId root="2.16.840.1.440396.10..22.4.2" /> <id nullFlavor="NA" /> <code codeSystem="local" code="MCV" displayName="MCV " /> <statusCode code="completed" /> <effectiveTime value= "" /> <value unit="fL" xsi:type="PQ" value="83.0" /> <referenceRange> <observationRange> <text>82.0-99.0< /text> </observationRange> </referenceRange> </ observation> </component> <component> <observation moodCode= "EVN" classCode="OBS"> <templateId root="2.16.840.1.422727.10..22.4.2 " /> <id nullFlavor="NA" /> <code codeSystem="local" code="MPV " displayName="MPV" /> <statusCode code="completed" /> < effectiveTime value="" /> <value unit="fL" xsi:type="PQ" value="9.0" /> <interpretationCode codeSystem="local" code="*" /> <referenceRange> <observationRange> <text>9.4-12.3< /text> </observationRange> </referenceRange> </ observation> </component> <component> <observation moodCode= "EVN" classCode="OBS"> <templateId root="16.840.1.061644.10.2022.4.2 " /> <id nullFlavor="NA" /> <code codeSystem="local" code="PLT " displayName="Platelet Count" /> <statusCode code="completed" /> <effectiveTime value="022454479856" /> <value unit="K/uL" xsi:type ="PQ" value="253" /> <referenceRange> <observationRange> <text>150-400</text> </observationRange> </ referenceRange> </observation> </component> <component> <observation moodCode="EVN" classCode="OBS"> <templateId root= "10.29.840.1.530566..22.4.2" /> <id nullFlavor="NA" /> < code codeSystem="local" code="RBC" displayName="RBC" /> <statusCode code="completed" /> <effectiveTime value="394374424376" /> < value unit="10*6/uL" xsi:type="PQ" value="4.65" /> <referenceRange> <observationRange> <text>4.60-6.20</text> </ observationRange> </referenceRange> </observation> </ component> <component> <observation moodCode="EVN" classCode="OBS"> <templateId root="10.29.840.1.525482.10.20.22.4.2" /> <id nullFlavor="NA" /> <code codeSystem="local" code="RDW" displayName="RDW " /> <statusCode code="completed" /> <effectiveTime value= "225661531973" /> <value unit="%" xsi:type="PQ" value="14.5" /> <referenceRange> <observationRange> <text>11.5- 14.5</text> </observationRange> </referenceRange> </ observation> </component> <component> <observation moodCode= "EVN" classCode="OBS"> <templateId root="10.29.840.1.944739.10.20.22.4.2 " /> <id nullFlavor="NA" /> <code codeSystem="local" code= "WBCIR" displayName="WBC" /> <statusCode code="completed" /> < effectiveTime value="675132546336" /> <value unit="K/uL" xsi:type="PQ" value="13.0" /> <interpretationCode codeSystem="local" code="*" /> <referenceRange> <observationRange> <text>4.8-10.8 </text> </observationRange> </referenceRange> </ observation> </component> </organizer> </entry> <entry> <organizer moodCode="EVN" classCode="BATTERY"> <templateId root= "10.29.840.1.665707.10..22.4.1" /> <id nullFlavor="NA" /> <code codeSystem="local" code="BMP" displayName="Basic Metabolic Panel (BMP)" /> <statusCode code="completed" /> <component> <observation moodCode= "EVN" classCode="OBS"> <templateId root="10.29.840.1.087078.10.20.22.4.2 " /> <id nullFlavor="NA" /> <code codeSystem="local" code= "AGAP" displayName="Anion Gap" /> <statusCode code="completed" /> <effectiveTime value="754334635086" /> <value unit="mEq/L" xsi: type="PQ" value="8" /> <referenceRange> <observationRange> <text>3-20</text> </observationRange> </ referenceRange> </observation> </component> <component> <observation moodCode="EVN" classCode="OBS"> <templateId root= "10.29.840.1.484052.1022.4.2" /> <id nullFlavor="NA" /> < code codeSystem="local" code="BUN" displayName="BUN" /> <statusCode code="completed" /> <effectiveTime value="" /> < value unit="mg/dL" xsi:type="PQ" value="15" /> <referenceRange> <observationRange> <text>4-20</text> </ observationRange> </referenceRange> </observation> </ component> <component> <observation moodCode="EVN" classCode="OBS"> <templateId root="10.29.840.1.652352.22.4.2" /> <id nullFlavor="NA" /> <code codeSystem="local" code="CA" displayName= "Calcium" /> <statusCode code="completed" /> <effectiveTime value="" /> <value unit="mg/dL" xsi:type="PQ" value="8.7" / > <referenceRange> <observationRange> <text>8.6 -10.0</text> </observationRange> </referenceRange> </ observation> </component> <component> <observation moodCode= "EVN" classCode="OBS"> <templateId root="10.29.840.1.692295.1022.4.2 " /> <id nullFlavor="NA" /> <code codeSystem="local" code="CL " displayName="Chloride" /> <statusCode code="completed" /> < effectiveTime value="" /> <value unit="mEq/L" xsi:type="PQ " value="98" /> <interpretationCode codeSystem="local" code="*" /> <referenceRange> <observationRange> <text>99-109</ text> </observationRange> </referenceRange> </ observation> </component> <component> <observation moodCode= "EVN" classCode="OBS"> <templateId root="10.29.840.1.825267.10.20.22.4.2 " /> <id nullFlavor="NA" /> <code codeSystem="local" code="CO2 " displayName="CO2" /> <statusCode code="completed" /> < effectiveTime value="175380656444" /> <value unit="mEq/L" xsi:type="PQ " value="27" /> <referenceRange> <observationRange> <text>22-32</text> </observationRange> </ referenceRange> </observation> </component> <component> <observation moodCode="EVN" classCode="OBS"> <templateId root= "840.1.309438.10.2022.4.2" /> <id nullFlavor="NA" /> < code codeSystem="local" code="CREAT" displayName="Creatinine" /> < statusCode code="completed" /> <effectiveTime value="100766705942" /> <value unit="mg/dL" xsi:type="PQ" value="0.90" /> < referenceRange> <observationRange> <text>0.64-1.27</text > </observationRange> </referenceRange> </observation > </component> <component> <observation moodCode="EVN" classCode="OBS"> <templateId root="840.1.426117.10.20.22.4.2" /> <id nullFlavor="NA" /> <code codeSystem="local" code="GLU" displayName="Glucose" /> <statusCode code="completed" /> < effectiveTime value="665051645695" /> <value unit="mg/dL" xsi:type="PQ " value="115" /> <interpretationCode codeSystem="local" code="*" /> <referenceRange> <observationRange> <text>70-100< /text> </observationRange> </referenceRange> </ observation> </component> <component> <observation moodCode= "EVN" classCode="OBS"> <templateId root="216.840.1.335373.10.20.22.4.2 " /> <id nullFlavor="NA" /> <code codeSystem="local" code="K" displayName="Potassium" /> <statusCode code="completed" /> < effectiveTime value="868686336741" /> <value unit="mEq/L" xsi:type="PQ " value="4.0" /> <referenceRange> <observationRange> <text>3.6-5.1</text> </observationRange> </ referenceRange> </observation> </component> <component> <observation moodCode="EVN" classCode="OBS"> <templateId root= "2.16.840.1.242445.10.20.22.4.2" /> <id nullFlavor="NA" /> < code codeSystem="local" code="NA" displayName="Sodium" /> <statusCode code="completed" /> <effectiveTime value="[id number]" /> < value unit="mEq/L" xsi:type="PQ" value="133" /> <interpretationCode codeSystem="local" code="*" /> <referenceRange> < observationRange> <text>136-144</text> </ observationRange> </referenceRange> </observation> </ component> </organizer> </entry> <entry> <organizer moodCode="EVN" classCode="BATTERY"> <templateId root="16.840.1.842946.10..4.1" /> <id nullFlavor="NA" /> <code codeSystem="local" code="MG" displayName= "Magnesium" /> <statusCode code="completed" /> <component> < observation moodCode="EVN" classCode="OBS"> <templateId root= "10.29.840.1.656004.07.02.22.4.2" /> <id nullFlavor="NA" /> < code codeSystem="local" code="MG" displayName="Magnesium" /> < statusCode code="completed" /> <effectiveTime value="" /> <value unit="mg/dL" xsi:type="PQ" value="2.2" /> < referenceRange> <observationRange> <text>1.8-2.5</text> </observationRange> </referenceRange> </observation > </component> </organizer> </entry> <entry> <organizer moodCode= "EVN" classCode="BATTERY"> <templateId root="10.29.840.1.686195.07.02.22.4.1 " /> <id nullFlavor="NA" /> <code codeSystem="local" code="PHOS" displayName="Phosphorus" /> <statusCode code="completed" /> <component > <observation moodCode="EVN" classCode="OBS"> <templateId root= "10.29.840.1.030247.22.4.2" /> <id nullFlavor="NA" /> < code codeSystem="local" code="PHOS" displayName="Phosphorus" /> < statusCode code="completed" /> <effectiveTime value="[id number]" /> <value unit="mg/dL" xsi:type="PQ" value="3.0" /> < referenceRange> <observationRange> <text>2.4-4.7</text> </observationRange> </referenceRange> </observation > </component> </organizer> </entry> <entry> <organizer moodCode= "EVN" classCode="BATTERY"> <templateId root="840.1.612138.22.4.1 " /> <id nullFlavor="NA" /> <code codeSystem="local" code="GFR" displayName="eGFR" /> <statusCode code="completed" /> <component> <observation moodCode="EVN" classCode="OBS"> <templateId root= "840.1.019468.07.02.22.4.2" /> <id nullFlavor="NA" /> < code codeSystem="local" code="GFR" displayName="eGFR" /> <statusCode code="completed" /> <effectiveTime value="686549980183" /> < value unit="mL/min" xsi:type="PQ" value=">60" /> <referenceRange> <observationRange> <text>>60</text> </ observationRange> </referenceRange> </observation> </ component> </organizer> </entry> <entry> <organizer moodCode="EVN" classCode="BATTERY"> <templateId root="840.1.796265.22.4.1" /> <id nullFlavor="NA" /> <code codeSystem="local" code="CBCND" displayName="CBC With Platelet No Differential" /> <statusCode code= "completed" /> <component> <observation moodCode="EVN" classCode= "OBS"> <templateId root="840.1.960664.22.4.2" /> < id nullFlavor="NA" /> <code codeSystem="local" code="HCT" displayName= "HCT" /> <statusCode code="completed" /> <effectiveTime value= "" /> <value unit="%" xsi:type="PQ" value="37.8" /> <interpretationCode codeSystem="local" code="*" /> < referenceRange> <observationRange> <text>42.0-52.0</text > </observationRange> </referenceRange> </observation > </component> <component> <observation moodCode="EVN" classCode="OBS"> <templateId root="2.16.840.1.255822.10..22.4.2" /> <id nullFlavor="NA" /> <code codeSystem="local" code="HGB" displayName="HGB" /> <statusCode code="completed" /> < effectiveTime value="" /> <value unit="g/dL" xsi:type="PQ" value="12.5" /> <interpretationCode codeSystem="local" code="*" /> <referenceRange> <observationRange> <text>14.0- 18.0</text> </observationRange> </referenceRange> </ observation> </component> <component> <observation moodCode= "EVN" classCode="OBS"> <templateId root="2.16.840.1.710170.10.2022.4.2 " /> <id nullFlavor="NA" /> <code codeSystem="local" code="MCH " displayName="MCH" /> <statusCode code="completed" /> < effectiveTime value="" /> <value unit="pg" xsi:type="PQ" value="27.4" /> <referenceRange> <observationRange> <text>27.0-32.0</text> </observationRange> </ referenceRange> </observation> </component> <component> <observation moodCode="EVN" classCode="OBS"> <templateId root= "16.840.1.151054.10.22.4.2" /> <id nullFlavor="NA" /> < code codeSystem="local" code="MCHC" displayName="MCHC" /> <statusCode code="completed" /> <effectiveTime value="" /> < value unit="g/dL" xsi:type="PQ" value="33.1" /> <referenceRange> <observationRange> <text>32.0-36.0</text> </ observationRange> </referenceRange> </observation> </ component> <component> <observation moodCode="EVN" classCode="OBS"> <templateId root="10.29.840.1.847987.22.4.2" /> <id nullFlavor="NA" /> <code codeSystem="local" code="MCV" displayName="MCV " /> <statusCode code="completed" /> <effectiveTime value= "" /> <value unit="fL" xsi:type="PQ" value="82.7" /> <referenceRange> <observationRange> <text>82.0-99.0< /text> </observationRange> </referenceRange> </ observation> </component> <component> <observation moodCode= "EVN" classCode="OBS"> <templateId root="10.29.840.1.404103.10.22.4.2 " /> <id nullFlavor="NA" /> <code codeSystem="local" code="MPV " displayName="MPV" /> <statusCode code="completed" /> < effectiveTime value="" /> <value unit="fL" xsi:type="PQ" value="9.5" /> <referenceRange> <observationRange> <text>9.4-12.3</text> </observationRange> </ referenceRange> </observation> </component> <component> <observation moodCode="EVN" classCode="OBS"> <templateId root= "10.29.840.1.302746.10.20.22.4.2" /> <id nullFlavor="NA" /> < code codeSystem="local" code="PLT" displayName="Platelet Count" /> < statusCode code="completed" /> <effectiveTime value="" /> <value unit="K/uL" xsi:type="PQ" value="235" /> < referenceRange> <observationRange> <text>150-400</text> </observationRange> </referenceRange> </observation > </component> <component> <observation moodCode="EVN" classCode="OBS"> <templateId root="10.29.840.1.164720.10.20.22.4.2" /> <id nullFlavor="NA" /> <code codeSystem="local" code="RBC" displayName="RBC" /> <statusCode code="completed" /> < effectiveTime value="827983606009" /> <value unit="10*6/uL" xsi:type= "PQ" value="4.57" /> <interpretationCode codeSystem="local" code="*" / > <referenceRange> <observationRange> <text> 4.60-6.20</text> </observationRange> </referenceRange> </observation> </component> <component> <observation moodCode="EVN" classCode="OBS"> <templateId root= "10.29.840.1.339874.10.20.22.4.2" /> <id nullFlavor="NA" /> < code codeSystem="local" code="RDW" displayName="RDW" /> <statusCode code="completed" /> <effectiveTime value="723056016040" /> < value unit="%" xsi:type="PQ" value="14.2" /> <referenceRange> <observationRange> <text>11.5-14.5</text> </ observationRange> </referenceRange> </observation> </ component> <component> <observation moodCode="EVN" classCode="OBS"> <templateId root="10.29.840.1.355289.10.20.22.4.2" /> <id nullFlavor="NA" /> <code codeSystem="local" code="WBCIR" displayName= "WBC" /> <statusCode code="completed" /> <effectiveTime value= "718944044434" /> <value unit="K/uL" xsi:type="PQ" value="10.5" /> <referenceRange> <observationRange> <text>4.8-10.8 </text> </observationRange> </referenceRange> </ observation> </component> </organizer> </entry> <entry> <organizer moodCode="EVN" classCode="BATTERY"> <templateId root= "10.29.840.1.146146.10..22.4.1" /> <id nullFlavor="NA" /> <code codeSystem="local" code="RENAL" displayName="Renal Function Panel" /> < statusCode code="completed" /> <component> <observation moodCode= "EVN" classCode="OBS"> <templateId root="10.29.840.1.555089.10.20.22.4.2 " /> <id nullFlavor="NA" /> <code codeSystem="local" code="ALB " displayName="Albumin" /> <statusCode code="completed" /> < effectiveTime value="734218075709" /> <value unit="g/dL" xsi:type="PQ" value="2.2" /> <interpretationCode codeSystem="local" code="*" /> <referenceRange> <observationRange> <text>3.5-4.8</ text> </observationRange> </referenceRange> </ observation> </component> <component> <observation moodCode= "EVN" classCode="OBS"> <templateId root="10.29.840.1.619132.102022.4.2 " /> <id nullFlavor="NA" /> <code codeSystem="local" code= "AGAP" displayName="Anion Gap" /> <statusCode code="completed" /> <effectiveTime value="096011550845" /> <value unit="mEq/L" xsi: type="PQ" value="7" /> <referenceRange> <observationRange> <text>3-20</text> </observationRange> </ referenceRange> </observation> </component> <component> <observation moodCode="EVN" classCode="OBS"> <templateId root= "840.1.486902.22.4.2" /> <id nullFlavor="NA" /> < code codeSystem="local" code="BUN" displayName="BUN" /> <statusCode code="completed" /> <effectiveTime value="149465160888" /> < value unit="mg/dL" xsi:type="PQ" value="16" /> <referenceRange> <observationRange> <text>4-20</text> </ observationRange> </referenceRange> </observation> </ component> <component> <observation moodCode="EVN" classCode="OBS"> <templateId root="10.29.840.1.431018.102022.4.2" /> <id nullFlavor="NA" /> <code codeSystem="local" code="CA" displayName= "Calcium" /> <statusCode code="completed" /> <effectiveTime value="641612956333" /> <value unit="mg/dL" xsi:type="PQ" value="8.6" / > <referenceRange> <observationRange> <text>8.6 -10.0</text> </observationRange> </referenceRange> </ observation> </component> <component> <observation moodCode= "EVN" classCode="OBS"> <templateId root="10.29.840.1.546882.10.20.22.4.2 " /> <id nullFlavor="NA" /> <code codeSystem="local" code="CL " displayName="Chloride" /> <statusCode code="completed" /> < effectiveTime value="616977791013" /> <value unit="mEq/L" xsi:type="PQ " value="98" /> <interpretationCode codeSystem="local" code="*" /> <referenceRange> <observationRange> <text>99-109</ text> </observationRange> </referenceRange> </ observation> </component> <component> <observation moodCode= "EVN" classCode="OBS"> <templateId root="10.29.840.1.580401.10.20.22.4.2 " /> <id nullFlavor="NA" /> <code codeSystem="local" code="CO2 " displayName="CO2" /> <statusCode code="completed" /> < effectiveTime value="342145248100" /> <value unit="mEq/L" xsi:type="PQ " value="28" /> <referenceRange> <observationRange> <text>22-32</text> </observationRange> </ referenceRange> </observation> </component> <component> <observation moodCode="EVN" classCode="OBS"> <templateId root= "16.840.1.516560.10.2022.4.2" /> <id nullFlavor="NA" /> < code codeSystem="local" code="CREAT" displayName="Creatinine" /> < statusCode code="completed" /> <effectiveTime value="693324662595" /> <value unit="mg/dL" xsi:type="PQ" value="0.88" /> < referenceRange> <observationRange> <text>0.64-1.27</text > </observationRange> </referenceRange> </observation > </component> <component> <observation moodCode="EVN" classCode="OBS"> <templateId root="16.840.1.273921.10.22.4.2" /> <id nullFlavor="NA" /> <code codeSystem="local" code="GLU" displayName="Glucose" /> <statusCode code="completed" /> < effectiveTime value="969593559590" /> <value unit="mg/dL" xsi:type="PQ " value="96" /> <referenceRange> <observationRange> <text>70-100</text> </observationRange> </ referenceRange> </observation> </component> <component> <observation moodCode="EVN" classCode="OBS"> <templateId root= "16.840.1.166315.10.20.22.4.2" /> <id nullFlavor="NA" /> < code codeSystem="local" code="PHOS" displayName="Phosphorus" /> < statusCode code="completed" /> <effectiveTime value="466323228689" /> <value unit="mg/dL" xsi:type="PQ" value="3.2" /> < referenceRange> <observationRange> <text>2.4-4.7</text> </observationRange> </referenceRange> </observation > </component> <component> <observation moodCode="EVN" classCode="OBS"> <templateId root="216.840.1.383813.10..22.4.2" /> <id nullFlavor="NA" /> <code codeSystem="local" code="K" displayName="Potassium" /> <statusCode code="completed" /> < effectiveTime value="543904586135" /> <value unit="mEq/L" xsi:type="PQ " value="4.1" /> <referenceRange> <observationRange> <text>3.6-5.1</text> </observationRange> </ referenceRange> </observation> </component> <component> <observation moodCode="EVN" classCode="OBS"> <templateId root= "216.840.1.955274.07.02.22.4.2" /> <id nullFlavor="NA" /> < code codeSystem="local" code="NA" displayName="Sodium" /> <statusCode code="completed" /> <effectiveTime value="678743907864" /> < value unit="mEq/L" xsi:type="PQ" value="133" /> <interpretationCode codeSystem="local" code="*" /> <referenceRange> < observationRange> <text>136-144</text> </ observationRange> </referenceRange> </observation> </ component> </organizer> </entry> <entry> <organizer moodCode="EVN" classCode="BATTERY"> <templateId root="216.840.1.734814.10..22.4.1" /> <id nullFlavor="NA" /> <code codeSystem="local" code="MG" displayName= "Magnesium" /> <statusCode code="completed" /> <component> < observation moodCode="EVN" classCode="OBS"> <templateId root= "10.29.840.1.679546.10.22.4.2" /> <id nullFlavor="NA" /> < code codeSystem="local" code="MG" displayName="Magnesium" /> < statusCode code="completed" /> <effectiveTime value="855514336460" /> <value unit="mg/dL" xsi:type="PQ" value="2.2" /> < referenceRange> <observationRange> <text>1.8-2.5</text> </observationRange> </referenceRange> </observation > </component> </organizer> </entry> <entry> <organizer moodCode= "EVN" classCode="BATTERY"> <templateId root="10.29.840.1.637741.07.02.22.4.1 " /> <id nullFlavor="NA" /> <code codeSystem="local" code="GFR" displayName="eGFR" /> <statusCode code="completed" /> <component> <observation moodCode="EVN" classCode="OBS"> <templateId root= "16.840.1.701614.07.02.22.4.2" /> <id nullFlavor="NA" /> < code codeSystem="local" code="GFR" displayName="eGFR" /> <statusCode code="completed" /> <effectiveTime value="913655598427" /> < value unit="mL/min" xsi:type="PQ" value=">60" /> <referenceRange> <observationRange> <text>>60</text> </ observationRange> </referenceRange> </observation> </ component> </organizer> </entry> <entry> <organizer moodCode="EVN" classCode="BATTERY"> <templateId root="10.29.840.1.343691.07.02.22.4.1" /> <id nullFlavor="NA" /> <code codeSystem="local" code="CBCND" displayName="CBC With Platelet No Differential" /> <statusCode code= "completed" /> <component> <observation moodCode="EVN" classCode= "OBS"> <templateId root="216.840.1.054064.10..4.2" /> < id nullFlavor="NA" /> <code codeSystem="local" code="HCT" displayName= "HCT" /> <statusCode code="completed" /> <effectiveTime value= "" /> <value unit="%" xsi:type="PQ" value="37.9" /> <interpretationCode codeSystem="local" code="*" /> < referenceRange> <observationRange> <text>42.0-52.0</text > </observationRange> </referenceRange> </observation > </component> <component> <observation moodCode="EVN" classCode="OBS"> <templateId root="10.29.840.1.017128.07.02.22.4.2" /> <id nullFlavor="NA" /> <code codeSystem="local" code="HGB" displayName="HGB" /> <statusCode code="completed" /> < effectiveTime value="550970713746" /> <value unit="g/dL" xsi:type="PQ" value="12.4" /> <interpretationCode codeSystem="local" code="*" /> <referenceRange> <observationRange> <text>14.0- 18.0</text> </observationRange> </referenceRange> </ observation> </component> <component> <observation moodCode= "EVN" classCode="OBS"> <templateId root="216.840.1.206559.07.02.22.4.2 " /> <id nullFlavor="NA" /> <code codeSystem="local" code="MCH " displayName="MCH" /> <statusCode code="completed" /> < effectiveTime value="" /> <value unit="pg" xsi:type="PQ" value="27.0" /> <referenceRange> <observationRange> <text>27.0-32.0</text> </observationRange> </ referenceRange> </observation> </component> <component> <observation moodCode="EVN" classCode="OBS"> <templateId root= "2.16.840.1.173975.10..4.2" /> <id nullFlavor="NA" /> < code codeSystem="local" code[facility]" displayName="[facility]" /> <statusCode code="completed" /> <effectiveTime value="" /> < value unit="g/dL" xsi:type="PQ" value="32.7" /> <referenceRange> <observationRange> <text>32.0-36.0</text> </ observationRange> </referenceRange> </observation> </ component> <component> <observation moodCode="EVN" classCode="OBS"> <templateId root="2.16.840.1.501432.10..4.2" /> <id nullFlavor="NA" /> <code codeSystem="local" code="MCV" displayName="MCV " /> <statusCode code="completed" /> <effectiveTime value= "" /> <value unit="fL" xsi:type="PQ" value="82.4" /> <referenceRange> <observationRange> <text>82.0-99.0< /text> </observationRange> </referenceRange> </ observation> </component> <component> <observation moodCode= "EVN" classCode="OBS"> <templateId root="16.840.1.731850.10.20.22.4.2 " /> <id nullFlavor="NA" /> <code codeSystem="local" code="MPV " displayName="MPV" /> <statusCode code="completed" /> < effectiveTime value="826680933094" /> <value unit="fL" xsi:type="PQ" value="8.8" /> <interpretationCode codeSystem="local" code="*" /> <referenceRange> <observationRange> <text>9.4-12.3< /text> </observationRange> </referenceRange> </ observation> </component> <component> <observation moodCode= "EVN" classCode="OBS"> <templateId root="10.29.840.1.826765..22.4.2 " /> <id nullFlavor="NA" /> <code codeSystem="local" code="PLT " displayName="Platelet Count" /> <statusCode code="completed" /> <effectiveTime value="408789447530" /> <value unit="K/uL" xsi:type ="PQ" value="213" /> <referenceRange> <observationRange> <text>150-400</text> </observationRange> </ referenceRange> </observation> </component> <component> <observation moodCode="EVN" classCode="OBS"> <templateId root= "10.29.840.1.974336.10.20.22.4.2" /> <id nullFlavor="NA" /> < code codeSystem="local" code="RBC" displayName="RBC" /> <statusCode code="completed" /> <effectiveTime value="895620683683" /> < value unit="10*6/uL" xsi:type="PQ" value="4.60" /> <referenceRange> <observationRange> <text>4.60-6.20</text> </ observationRange> </referenceRange> </observation> </ component> <component> <observation moodCode="EVN" classCode="OBS"> <templateId root="16.840.1.348634.10.20.22.4.2" /> <id nullFlavor="NA" /> <code codeSystem="local" code="RDW" displayName="RDW " /> <statusCode code="completed" /> <effectiveTime value= "604645743369" /> <value unit="%" xsi:type="PQ" value="13.9" /> <referenceRange> <observationRange> <text>11.5- 14.5</text> </observationRange> </referenceRange> </ observation> </component> <component> <observation moodCode= "EVN" classCode="OBS"> <templateId root="10.29.840.1.188777.10..22.4.2 " /> <id nullFlavor="NA" /> <code codeSystem="local" code= "WBCIR" displayName="WBC" /> <statusCode code="completed" /> < effectiveTime value="054636375508" /> <value unit="K/uL" xsi:type="PQ" value="9.8" /> <referenceRange> <observationRange> <text>4.8-10.8</text> </observationRange> </ referenceRange> </observation> </component> </organizer> </entry > <entry> <organizer moodCode="EVN" classCode="BATTERY"> <templateId root="10.29.840.1.826021.10.20.22.4.1" /> <id nullFlavor="NA" /> <code codeSystem="local" code="RENAL" displayName="Renal Function Panel" /> < statusCode code="completed" /> <component> <observation moodCode= "EVN" classCode="OBS"> <templateId root="216.840.1.906180.10.22.4.2 " /> <id nullFlavor="NA" /> <code codeSystem="local" code="ALB " displayName="Albumin" /> <statusCode code="completed" /> < effectiveTime value="" /> <value unit="g/dL" xsi:type="PQ" value="2.3" /> <interpretationCode codeSystem="local" code="*" /> <referenceRange> <observationRange> <text>3.5-4.8</ text> </observationRange> </referenceRange> </ observation> </component> <component> <observation moodCode= "EVN" classCode="OBS"> <templateId root="16.840.1.399948.07.02.22.4.2 " /> <id nullFlavor="NA" /> <code codeSystem="local" code= "AGAP" displayName="Anion Gap" /> <statusCode code="completed" /> <effectiveTime value="" /> <value unit="mEq/L" xsi: type="PQ" value="9" /> <referenceRange> <observationRange> <text>3-20</text> </observationRange> </ referenceRange> </observation> </component> <component> <observation moodCode="EVN" classCode="OBS"> <templateId root= "216.840.1.284892.10.22.4.2" /> <id nullFlavor="NA" /> < code codeSystem="local" code="BUN" displayName="BUN" /> <statusCode code="completed" /> <effectiveTime value="" /> < value unit="mg/dL" xsi:type="PQ" value="15" /> <referenceRange> <observationRange> <text>4-20</text> </ observationRange> </referenceRange> </observation> </ component> <component> <observation moodCode="EVN" classCode="OBS"> <templateId root="10.29.840.1.099259.10.20.22.4.2" /> <id nullFlavor="NA" /> <code codeSystem="local" code="CA" displayName= "Calcium" /> <statusCode code="completed" /> <effectiveTime value="" /> <value unit="mg/dL" xsi:type="PQ" value="8.8" / > <referenceRange> <observationRange> <text>8.6 -10.0</text> </observationRange> </referenceRange> </ observation> </component> <component> <observation moodCode= "EVN" classCode="OBS"> <templateId root="840.1.946006.10.2022.4.2 " /> <id nullFlavor="NA" /> <code codeSystem="local" code="CL " displayName="Chloride" /> <statusCode code="completed" /> < effectiveTime value="" /> <value unit="mEq/L" xsi:type="PQ " value="98" /> <interpretationCode codeSystem="local" code="*" /> <referenceRange> <observationRange> <text>99-109</ text> </observationRange> </referenceRange> </ observation> </component> <component> <observation moodCode= "EVN" classCode="OBS"> <templateId root="840.1.474858.10.20.22.4.2 " /> <id nullFlavor="NA" /> <code codeSystem="local" code="CO2 " displayName="CO2" /> <statusCode code="completed" /> < effectiveTime value="" /> <value unit="mEq/L" xsi:type="PQ " value="26" /> <referenceRange> <observationRange> <text>22-32</text> </observationRange> </ referenceRange> </observation> </component> <component> <observation moodCode="EVN" classCode="OBS"> <templateId root= "16.840.1.135917.10...4.2" /> <id nullFlavor="NA" /> < code codeSystem="local" code="CREAT" displayName="Creatinine" /> < statusCode code="completed" /> <effectiveTime value="" /> <value unit="mg/dL" xsi:type="PQ" value="0.96" /> < referenceRange> <observationRange> <text>0.64-1.27</text > </observationRange> </referenceRange> </observation > </component> <component> <observation moodCode="EVN" classCode="OBS"> <templateId root="10.29.840.1.493938...4.2" /> <id nullFlavor="NA" /> <code codeSystem="local" code="GLU" displayName="Glucose" /> <statusCode code="completed" /> < effectiveTime value="" /> <value unit="mg/dL" xsi:type="PQ " value="95" /> <referenceRange> <observationRange> <text>70-100</text> </observationRange> </ referenceRange> </observation> </component> <component> <observation moodCode="EVN" classCode="OBS"> <templateId root= "10.29.840.1.959360.10...4.2" /> <id nullFlavor="NA" /> < code codeSystem="local" code="PHOS" displayName="Phosphorus" /> < statusCode code="completed" /> <effectiveTime value="" /> <value unit="mg/dL" xsi:type="PQ" value="3.5" /> < referenceRange> <observationRange> <text>2.4-4.7</text> </observationRange> </referenceRange> </observation > </component> <component> <observation moodCode="EVN" classCode="OBS"> <templateId root="2.16.840.1.774287.10.20.22.4.2" /> <id nullFlavor="NA" /> <code codeSystem="local" code="K" displayName="Potassium" /> <statusCode code="completed" /> < effectiveTime value="" /> <value unit="mEq/L" xsi:type="PQ " value="4.3" /> <referenceRange> <observationRange> <text>3.6-5.1</text> </observationRange> </ referenceRange> </observation> </component> <component> <observation moodCode="EVN" classCode="OBS"> <templateId root= "16.840.1.061003.10.20.22.4.2" /> <id nullFlavor="NA" /> < code codeSystem="local" code="NA" displayName="Sodium" /> <statusCode code="completed" /> <effectiveTime value="" /> < value unit="mEq/L" xsi:type="PQ" value="133" /> <interpretationCode codeSystem="local" code="*" /> <referenceRange> < observationRange> <text>136-144</text> </ observationRange> </referenceRange> </observation> </ component> </organizer> </entry> <entry> <organizer moodCode="EVN" classCode="BATTERY"> <templateId root="10.29.840.1.168971.10.4.1" /> <id nullFlavor="NA" /> <code codeSystem="local" code="MG" displayName= "Magnesium" /> <statusCode code="completed" /> <component> < observation moodCode="EVN" classCode="OBS"> <templateId root= "840.1.965707.07.02.22.4.2" /> <id nullFlavor="NA" /> < code codeSystem="local" code="MG" displayName="Magnesium" /> < statusCode code="completed" /> <effectiveTime value="" /> <value unit="mg/dL" xsi:type="PQ" value="2.3" /> < referenceRange> <observationRange> <text>1.8-2.5</text> </observationRange> </referenceRange> </observation > </component> </organizer> </entry> <entry> <organizer moodCode= "EVN" classCode="BATTERY"> <templateId root="840.1.096378.07.02.22.4.1 " /> <id nullFlavor="NA" /> <code codeSystem="local" code="GFR" displayName="eGFR" /> <statusCode code="completed" /> <component> <observation moodCode="EVN" classCode="OBS"> <templateId root= "840.1.431921.07.02.22.4.2" /> <id nullFlavor="NA" /> < code codeSystem="local" code="GFR" displayName="eGFR" /> <statusCode code="completed" /> <effectiveTime value="954610031532" /> < value unit="mL/min" xsi:type="PQ" value=">60" /> <referenceRange> <observationRange> <text>>60</text> </ observationRange> </referenceRange> </observation> </ component> </organizer> </entry> <entry> <organizer moodCode="EVN" classCode="BATTERY"> <templateId root="840.1.411568.10.22.4.1" /> <id nullFlavor="NA" /> <code codeSystem="local" code="CBCND" displayName="CBC With Platelet No Differential" /> <statusCode code= "completed" /> <component> <observation moodCode="EVN" classCode= "OBS"> <templateId root="10.29.840.1.636605.10..4.2" /> < id nullFlavor="NA" /> <code codeSystem="local" code="HCT" displayName= "HCT" /> <statusCode code="completed" /> <effectiveTime value= "162863794844" /> <value unit="%" xsi:type="PQ" value="36.9" /> <interpretationCode codeSystem="local" code="*" /> < referenceRange> <observationRange> <text>42.0-52.0</text > </observationRange> </referenceRange> </observation > </component> <component> <observation moodCode="EVN" classCode="OBS"> <templateId root="10.29.840.1.026812.10.22.4.2" /> <id nullFlavor="NA" /> <code codeSystem="local" code="HGB" displayName="HGB" /> <statusCode code="completed" /> < effectiveTime value="982506395641" /> <value unit="g/dL" xsi:type="PQ" value="12.0" /> <interpretationCode codeSystem="local" code="*" /> <referenceRange> <observationRange> <text>14.0- 18.0</text> </observationRange> </referenceRange> </ observation> </component> <component> <observation moodCode= "EVN" classCode="OBS"> <templateId root="216.840.1.581946.10..22.4.2 " /> <id nullFlavor="NA" /> <code codeSystem="local" code="MCH " displayName="MCH" /> <statusCode code="completed" /> < effectiveTime value="275403932830" /> <value unit="pg" xsi:type="PQ" value="27.1" /> <referenceRange> <observationRange> <text>27.0-32.0</text> </observationRange> </ referenceRange> </observation> </component> <component> <observation moodCode="EVN" classCode="OBS"> <templateId root= "10.29.840.1.793432.10...4.2" /> <id nullFlavor="NA" /> < code codeSystem="local" code="MCHC" displayName="MCHC" /> <statusCode code="completed" /> <effectiveTime value="714111944748" /> < value unit="g/dL" xsi:type="PQ" value="32.5" /> <referenceRange> <observationRange> <text>32.0-36.0</text> </ observationRange> </referenceRange> </observation> </ component> <component> <observation moodCode="EVN" classCode="OBS"> <templateId root="216.840.1.130813.10.20.22.4.2" /> <id nullFlavor="NA" /> <code codeSystem="local" code="MCV" displayName="MCV " /> <statusCode code="completed" /> <effectiveTime value= "323028585625" /> <value unit="fL" xsi:type="PQ" value="83.5" /> <referenceRange> <observationRange> <text>82.0-99.0< /text> </observationRange> </referenceRange> </ observation> </component> <component> <observation moodCode= "EVN" classCode="OBS"> <templateId root="10.29.840.1.039832.10.20.22.4.2 " /> <id nullFlavor="NA" /> <code codeSystem="local" code="MPV " displayName="MPV" /> <statusCode code="completed" /> < effectiveTime value="126329383384" /> <value unit="fL" xsi:type="PQ" value="9.2" /> <interpretationCode codeSystem="local" code="*" /> <referenceRange> <observationRange> <text>9.4-12.3< /text> </observationRange> </referenceRange> </ observation> </component> <component> <observation moodCode= "EVN" classCode="OBS"> <templateId root="10.29.840.1.613510.10.20.22.4.2 " /> <id nullFlavor="NA" /> <code codeSystem="local" code="PLT " displayName="Platelet Count" /> <statusCode code="completed" /> <effectiveTime value="302518374500" /> <value unit="K/uL" xsi:type ="PQ" value="221" /> <referenceRange> <observationRange> <text>150-400</text> </observationRange> </ referenceRange> </observation> </component> <component> <observation moodCode="EVN" classCode="OBS"> <templateId root= "840.1.724581.10.20.22.4.2" /> <id nullFlavor="NA" /> < code codeSystem="local" code="RBC" displayName="RBC" /> <statusCode code="completed" /> <effectiveTime value="040364305256" /> < value unit="10*6/uL" xsi:type="PQ" value="4.42" /> <interpretationCode codeSystem="local" code="*" /> <referenceRange> < observationRange> <text>4.60-6.20</text> </ observationRange> </referenceRange> </observation> </ component> <component> <observation moodCode="EVN" classCode="OBS"> <templateId root="216.840.1.279581.10.20.22.4.2" /> <id nullFlavor="NA" /> <code codeSystem="local" code="RDW" displayName="RDW " /> <statusCode code="completed" /> <effectiveTime value= "314733824608" /> <value unit="%" xsi:type="PQ" value="14.0" /> <referenceRange> <observationRange> <text>11.5- 14.5</text> </observationRange> </referenceRange> </ observation> </component> <component> <observation moodCode= "EVN" classCode="OBS"> <templateId root="16.840.1.195141.10.20.22.4.2 " /> <id nullFlavor="NA" /> <code codeSystem="local" code= "WBCIR" displayName="WBC" /> <statusCode code="completed" /> < effectiveTime value="612154160001" /> <value unit="K/uL" xsi:type="PQ" value="9.9" /> <referenceRange> <observationRange> <text>4.8-10.8</text> </observationRange> </ referenceRange> </observation> </component> </organizer> </entry > <entry> <organizer moodCode="EVN" classCode="BATTERY"> <templateId root="216.840.1.317384.10..22.4.1" /> <id nullFlavor="NA" /> <code codeSystem="local" code="BMP" displayName="Basic Metabolic Panel (BMP)" /> <statusCode code="completed" /> <component> <observation moodCode= "EVN" classCode="OBS"> <templateId root="216.840.1.870361...4.2 " /> <id nullFlavor="NA" /> <code codeSystem="local" code= "AGAP" displayName="Anion Gap" /> <statusCode code="completed" /> <effectiveTime value="808886864479" /> <value unit="mEq/L" xsi: type="PQ" value="7" /> <referenceRange> <observationRange> <text>3-20</text> </observationRange> </ referenceRange> </observation> </component> <component> <observation moodCode="EVN" classCode="OBS"> <templateId root= "16.840.1.969099....4.2" /> <id nullFlavor="NA" /> < code codeSystem="local" code="BUN" displayName="BUN" /> <statusCode code="completed" /> <effectiveTime value="953398800683" /> < value unit="mg/dL" xsi:type="PQ" value="22" /> <interpretationCode codeSystem="local" code="*" /> <referenceRange> < observationRange> <text>4-20</text> </observationRange> </referenceRange> </observation> </component> < component> <observation moodCode="EVN" classCode="OBS"> < templateId root="10.29.840.1.340544.10.22.4.2" /> <id nullFlavor="NA " /> <code codeSystem="local" code="CA" displayName="Calcium" /> <statusCode code="completed" /> <effectiveTime value=" " /> <value unit="mg/dL" xsi:type="PQ" value="9.1" /> < referenceRange> <observationRange> <text>8.6-10.0</text > </observationRange> </referenceRange> </observation > </component> <component> <observation moodCode="EVN" classCode="OBS"> <templateId root="10.29.840.1.441894.07.02.22.4.2" /> <id nullFlavor="NA" /> <code codeSystem="local" code="CL" displayName="Chloride" /> <statusCode code="completed" /> < effectiveTime value="" /> <value unit="mEq/L" xsi:type="PQ " value="98" /> <interpretationCode codeSystem="local" code="*" /> <referenceRange> <observationRange> <text>99-109</ text> </observationRange> </referenceRange> </ observation> </component> <component> <observation moodCode= "EVN" classCode="OBS"> <templateId root="10.29.840.1.145665.22.4.2 " /> <id nullFlavor="NA" /> <code codeSystem="local" code="CO2 " displayName="CO2" /> <statusCode code="completed" /> < effectiveTime value="" /> <value unit="mEq/L" xsi:type="PQ " value="28" /> <referenceRange> <observationRange> <text>22-32</text> </observationRange> </ referenceRange> </observation> </component> <component> <observation moodCode="EVN" classCode="OBS"> <templateId root= "10.29.840.1.049006.10.20.22.4.2" /> <id nullFlavor="NA" /> < code codeSystem="local" code="CREAT" displayName="Creatinine" /> < statusCode code="completed" /> <effectiveTime value="663574786761" /> <value unit="mg/dL" xsi:type="PQ" value="1.09" /> < referenceRange> <observationRange> <text>0.64-1.27</text > </observationRange> </referenceRange> </observation > </component> <component> <observation moodCode="EVN" classCode="OBS"> <templateId root="840.1.638750.10.22.4.2" /> <id nullFlavor="NA" /> <code codeSystem="local" code="GLU" displayName="Glucose" /> <statusCode code="completed" /> < effectiveTime value="765157325270" /> <value unit="mg/dL" xsi:type="PQ " value="62" /> <interpretationCode codeSystem="local" code="*" /> <referenceRange> <observationRange> <text>70-100</ text> </observationRange> </referenceRange> </ observation> </component> <component> <observation moodCode= "EVN" classCode="OBS"> <templateId root="10.29.840.1.296297.10.20.22.4.2 " /> <id nullFlavor="NA" /> <code codeSystem="local" code="K" displayName="Potassium" /> <statusCode code="completed" /> < effectiveTime value="" /> <value unit="mEq/L" xsi:type="PQ " value="4.3" /> <referenceRange> <observationRange> <text>3.6-5.1</text> </observationRange> </ referenceRange> </observation> </component> <component> <observation moodCode="EVN" classCode="OBS"> <templateId root= "10.29.840.1.122456.10.2022.4.2" /> <id nullFlavor="NA" /> < code codeSystem="local" code="NA" displayName="Sodium" /> <statusCode code="completed" /> <effectiveTime value="" /> < value unit="mEq/L" xsi:type="PQ" value="133" /> <interpretationCode codeSystem="local" code="*" /> <referenceRange> < observationRange> <text>136-144</text> </ observationRange> </referenceRange> </observation> </ component> </organizer> </entry> <entry> <organizer moodCode="EVN" classCode="BATTERY"> <templateId root="840.1.504238.10.22.4.1" /> <id nullFlavor="NA" /> <code codeSystem="local" code="GFR" displayName ="eGFR" /> <statusCode code="completed" /> <component> < observation moodCode="EVN" classCode="OBS"> <templateId root= "10.29.840.1.346447.1020.22.4.2" /> <id nullFlavor="NA" /> < code codeSystem="local" code="GFR" displayName="eGFR" /> <statusCode code="completed" /> <effectiveTime value="515557989437" /> < value unit="mL/min" xsi:type="PQ" value=">60" /> <referenceRange> <observationRange> <text>>60</text> </ observationRange> </referenceRange> </observation> </ component> </organizer> </entry> <entry> <organizer moodCode="EVN" classCode="BATTERY"> <templateId root="16.840.1.278184.10.4.1" /> <id nullFlavor="NA" /> <code codeSystem="local" code="CBCWD" displayName="CBC With Platelet and Differential" /> <statusCode code= "completed" /> <component> <observation moodCode="EVN" classCode= "OBS"> <templateId root="216.840.1.249584...4.2" /> < id nullFlavor="NA" /> <code codeSystem="local" code="ABASR" displayName ="Absolute Basophils" /> <statusCode code="completed" /> < effectiveTime value="477163073087" /> <value unit="10*3/uL" xsi:type= "PQ" value="0.03" /> <referenceRange> <observationRange> <text>0.00-0.20</text> </observationRange> </ referenceRange> </observation> </component> <component> <observation moodCode="EVN" classCode="OBS"> <templateId root= "16.840.1.945400.10.2022.4.2" /> <id nullFlavor="NA" /> < code codeSystem="local" code="AEOSR" displayName="Absolute Eosinophils" /> <statusCode code="completed" /> <effectiveTime value="676483626602 " /> <value unit="10*3/uL" xsi:type="PQ" value="0.04" /> < referenceRange> <observationRange> <text>0.00-0.50</text > </observationRange> </referenceRange> </observation > </component> <component> <observation moodCode="EVN" classCode="OBS"> <templateId root="216.840.1.302154.10.20.22.4.2" /> <id nullFlavor="NA" /> <code codeSystem="local" code="ALYMR" displayName="Absolute Lymphocytes" /> <statusCode code="completed" /> <effectiveTime value="354219855190" /> <value unit="10*3/uL" xsi:type="PQ" value="1.15" /> <referenceRange> < observationRange> <text>0.80-3.30</text> </ observationRange> </referenceRange> </observation> </ component> <component> <observation moodCode="EVN" classCode="OBS"> <templateId root="840.1.057999.10..4.2" /> <id nullFlavor="NA" /> <code codeSystem="local" code="AMONR" displayName= "Absolute Monocytes" /> <statusCode code="completed" /> < effectiveTime value="173082355680" /> <value unit="10*3/uL" xsi:type= "PQ" value="0.60" /> <referenceRange> <observationRange> <text>0.30-1.00</text> </observationRange> </ referenceRange> </observation> </component> <component> <observation moodCode="EVN" classCode="OBS"> <templateId root= "10.29.840.1.862580.10.20.22.4.2" /> <id nullFlavor="NA" /> < code codeSystem="local" code="ASEGR" displayName="Absolute Neutrophils" /> <statusCode code="completed" /> <effectiveTime value="250713384998 " /> <value unit="10*3/uL" xsi:type="PQ" value="4.22" /> < referenceRange> <observationRange> <text>1.90-7.00</text > </observationRange> </referenceRange> </observation > </component> <component> <observation moodCode="EVN" classCode="OBS"> <templateId root="10.29.840.1.084410.22.4.2" /> <id nullFlavor="NA" /> <code codeSystem="local" code="BASOR" displayName="Basophils" /> <statusCode code="completed" /> < effectiveTime value="691044574121" /> <value unit="%" xsi:type="PQ " value="1" /> <referenceRange> <observationRange> <text>0-2</text> </observationRange> </referenceRange> </observation> </component> <component> <observation moodCode="EVN" classCode="OBS"> <templateId root= "10.29.840.1.953120.07.02.22.4.2" /> <id nullFlavor="NA" /> < code codeSystem="local" code="EOSR" displayName="Eosinophils" /> < statusCode code="completed" /> <effectiveTime value="647742059091" /> <value unit="%" xsi:type="PQ" value="1" /> <referenceRange > <observationRange> <text>0-4</text> </ observationRange> </referenceRange> </observation> </ component> <component> <observation moodCode="EVN" classCode="OBS"> <templateId root="10.29.840.1.767891.07.02.22.4.2" /> <id nullFlavor="NA" /> <code codeSystem="local" code="HCT" displayName="HCT " /> <statusCode code="completed" /> <effectiveTime value= "411235783033" /> <value unit="%" xsi:type="PQ" value="42.5" /> <referenceRange> <observationRange> <text>42.0- 52.0</text> </observationRange> </referenceRange> </ observation> </component> <component> <observation moodCode= "EVN" classCode="OBS"> <templateId root="2.16.840.1.510564.10..4.2 " /> <id nullFlavor="NA" /> <code codeSystem="local" code="HGB " displayName="HGB" /> <statusCode code="completed" /> < effectiveTime value="214703021173" /> <value unit="g/dL" xsi:type="PQ" value="14.4" /> <referenceRange> <observationRange> <text>14.0-18.0</text> </observationRange> </ referenceRange> </observation> </component> <component> <observation moodCode="EVN" classCode="OBS"> <templateId root= "2.16.840.1.591342.10..4.2" /> <id nullFlavor="NA" /> < code codeSystem="local" code="IMGA" displayName="Immature Granulocytes" /> <statusCode code="completed" /> <effectiveTime value="036991087082 " /> <value unit="%" xsi:type="PQ" value="0.3" /> < referenceRange> <observationRange> <text>0.0-1.0</text> </observationRange> </referenceRange> </observation > </component> <component> <observation moodCode="EVN" classCode="OBS"> <templateId root="216.840.1.929908.10.22.4.2" /> <id nullFlavor="NA" /> <code codeSystem="local" code="LYMPR" displayName="Lymphocytes" /> <statusCode code="completed" /> < effectiveTime value="" /> <value unit="%" xsi:type="PQ " value="19" /> <interpretationCode codeSystem="local" code="*" /> <referenceRange> <observationRange> <text>20-46</ text> </observationRange> </referenceRange> </ observation> </component> <component> <observation moodCode= "EVN" classCode="OBS"> <templateId root="216.840.1.731562.10.4.2 " /> <id nullFlavor="NA" /> <code codeSystem="local" code="MCH " displayName="MCH" /> <statusCode code="completed" /> < effectiveTime value="" /> <value unit="pg" xsi:type="PQ" value="27.9" /> <referenceRange> <observationRange> <text>27.0-32.0</text> </observationRange> </ referenceRange> </observation> </component> <component> <observation moodCode="EVN" classCode="OBS"> <templateId root= "216.840.1.616796.10..4.2" /> <id nullFlavor="NA" /> < code codeSystem="local" code="MCHC" displayName="MCHC" /> <statusCode code="completed" /> <effectiveTime value="" /> < value unit="g/dL" xsi:type="PQ" value="33.9" /> <referenceRange> <observationRange> <text>32.0-36.0</text> </ observationRange> </referenceRange> </observation> </ component> <component> <observation moodCode="EVN" classCode="OBS"> <templateId root="10.29.840.1.839246.10.20.22.4.2" /> <id nullFlavor="NA" /> <code codeSystem="local" code="MCV" displayName="MCV " /> <statusCode code="completed" /> <effectiveTime value= "240654946661" /> <value unit="fL" xsi:type="PQ" value="82.4" /> <referenceRange> <observationRange> <text>82.0-99.0< /text> </observationRange> </referenceRange> </ observation> </component> <component> <observation moodCode= "EVN" classCode="OBS"> <templateId root="840.1.067381.10.22.4.2 " /> <id nullFlavor="NA" /> <code codeSystem="local" code= "MONOR" displayName="Monocytes" /> <statusCode code="completed" /> <effectiveTime value="495096156876" /> <value unit="%" xsi: type="PQ" value="10" /> <referenceRange> <observationRange> <text>4-11</text> </observationRange> </ referenceRange> </observation> </component> <component> <observation moodCode="EVN" classCode="OBS"> <templateId root= "10.29.840.1.586805.10.20.22.4.2" /> <id nullFlavor="NA" /> < code codeSystem="local" code="MPV" displayName="MPV" /> <statusCode code="completed" /> <effectiveTime value="985274095950" /> < value unit="fL" xsi:type="PQ" value="9.4" /> <referenceRange> <observationRange> <text>9.4-12.3</text> </ observationRange> </referenceRange> </observation> </ component> <component> <observation moodCode="EVN" classCode="OBS"> <templateId root="10.29.840.1.177222.07.02.22.4.2" /> <id nullFlavor="NA" /> <code codeSystem="local" code="SEGR" displayName= "Neutrophils" /> <statusCode code="completed" /> < effectiveTime value="671970044875" /> <value unit="%" xsi:type="PQ " value="70" /> <referenceRange> <observationRange> <text>51-75</text> </observationRange> </ referenceRange> </observation> </component> <component> <observation moodCode="EVN" classCode="OBS"> <templateId root= "10.29.840.1.366334.07.02.22.4.2" /> <id nullFlavor="NA" /> < code codeSystem="local" code="NRBCA" displayName="Nucleated RBC Automated" /> <statusCode code="completed" /> <effectiveTime value= "485999232393" /> <value unit="/100WBC" xsi:type="PQ" value="0.0" /> <referenceRange> <observationRange> <text /> </observationRange> </referenceRange> </observation> </component> <component> <observation moodCode="EVN" classCode= "OBS"> <templateId root="10.29.840.1.930271.07.02.22.4.2" /> < id nullFlavor="NA" /> <code codeSystem="local" code="PLT" displayName= "Platelet Count" /> <statusCode code="completed" /> < effectiveTime value="130177831820" /> <value unit="K/uL" xsi:type="PQ" value="179" /> <referenceRange> <observationRange> <text>150-400</text> </observationRange> </ referenceRange> </observation> </component> <component> <observation moodCode="EVN" classCode="OBS"> <templateId root= "2.16.840.1.976640.10.20.22.4.2" /> <id nullFlavor="NA" /> < code codeSystem="local" code="RBC" displayName="RBC" /> <statusCode code="completed" /> <effectiveTime value="592115217830" /> < value unit="10*6/uL" xsi:type="PQ" value="5.16" /> <referenceRange> <observationRange> <text>4.60-6.20</text> </ observationRange> </referenceRange> </observation> </ component> <component> <observation moodCode="EVN" classCode="OBS"> <templateId root="2.16.840.1.010118.10.20.22.4.2" /> <id nullFlavor="NA" /> <code codeSystem="local" code="RDW" displayName="RDW " /> <statusCode code="completed" /> <effectiveTime value= "871931735726" /> <value unit="%" xsi:type="PQ" value="15.5" /> <interpretationCode codeSystem="local" code="*" /> < referenceRange> <observationRange> <text>11.5-14.5</text > </observationRange> </referenceRange> </observation > </component> <component> <observation moodCode="EVN" classCode="OBS"> <templateId root="16.840.1.017360.10.20.22.4.2" /> <id nullFlavor="NA" /> <code codeSystem="local" code="WBCIR" displayName="WBC" /> <statusCode code="completed" /> < effectiveTime value="341026298110" /> <value unit="K/uL" xsi:type="PQ" value="6.1" /> <referenceRange> <observationRange> <text>4.8-10.8</text> </observationRange> </ referenceRange> </observation> </component> </organizer> </entry > <entry> <organizer moodCode="EVN" classCode="BATTERY"> <templateId root="10.29.840.1.512514.10.20.22.4.1" /> <id nullFlavor="NA" /> <code codeSystem="local" code="CMP" displayName="Comprehensive Metabolic Panel (CMP)" /> <statusCode code="completed" /> <component> <observation moodCode="EVN" classCode="OBS"> <templateId root= "10.29.840.1.457404.10.20.22.4.2" /> <id nullFlavor="NA" /> < code codeSystem="local" code="ALB" displayName="Albumin" /> < statusCode code="completed" /> <effectiveTime value="019288147784" /> <value unit="g/dL" xsi:type="PQ" value="3.8" /> < referenceRange> <observationRange> <text>3.5-4.8</text> </observationRange> </referenceRange> </observation > </component> <component> <observation moodCode="EVN" classCode="OBS"> <templateId root="10.29.830.1.743259.10..22.4.2" /> <id nullFlavor="NA" /> <code codeSystem="local" code="ALP" displayName="Alkaline Phosphatase" /> <statusCode code="completed" /> <effectiveTime value="829313696193" /> <value unit="U/L" xsi: type="PQ" value="75" /> <referenceRange> <observationRange> <text>26-104</text> </observationRange> </ referenceRange> </observation> </component> <component> <observation moodCode="EVN" classCode="OBS"> <templateId root= "2.16.840.1.497189.10..22.4.2" /> <id nullFlavor="NA" /> < code codeSystem="local" code="ALT" displayName="ALT (SGPT)" /> < statusCode code="completed" /> <effectiveTime value="166071037761" /> <value unit="U/L" xsi:type="PQ" value="17" /> <referenceRange > <observationRange> <text>17-63</text> </ observationRange> </referenceRange> </observation> </ component> <component> <observation moodCode="EVN" classCode="OBS"> <templateId root="216.840.1.157449...22.4.2" /> <id nullFlavor="NA" /> <code codeSystem="local" code="AGAP" displayName= "Anion Gap" /> <statusCode code="completed" /> <effectiveTime value="" /> <value unit="mEq/L" xsi:type="PQ" value="11" / > <referenceRange> <observationRange> <text>3- 20</text> </observationRange> </referenceRange> </ observation> </component> <component> <observation moodCode= "EVN" classCode="OBS"> <templateId root="216.840.1.536412.10..22.4.2 " /> <id nullFlavor="NA" /> <code codeSystem="local" code="AST " displayName="AST (SGOT)" /> <statusCode code="completed" /> <effectiveTime value="" /> <value unit="U/L" xsi:type="PQ" value="22" /> <referenceRange> <observationRange> <text>15-41</text> </observationRange> </referenceRange > </observation> </component> <component> <observation moodCode="EVN" classCode="OBS"> <templateId root= "16.840.1.036586.10..4.2" /> <id nullFlavor="NA" /> < code codeSystem="local" code="BILIT" displayName="Bilirubin Total" /> < statusCode code="completed" /> <effectiveTime value="" /> <value unit="mg/dL" xsi:type="PQ" value="0.8" /> < referenceRange> <observationRange> <text>0.2-1.2</text> </observationRange> </referenceRange> </observation > </component> <component> <observation moodCode="EVN" classCode="OBS"> <templateId root="10.29.840.1.692961.10..22.4.2" /> <id nullFlavor="NA" /> <code codeSystem="local" code="BUN" displayName="BUN" /> <statusCode code="completed" /> < effectiveTime value="681893445084" /> <value unit="mg/dL" xsi:type="PQ " value="13" /> <referenceRange> <observationRange> <text>4-20</text> </observationRange> </referenceRange > </observation> </component> <component> <observation moodCode="EVN" classCode="OBS"> <templateId root= "16.840.1.637228.10.22.4.2" /> <id nullFlavor="NA" /> < code codeSystem="local" code="CA" displayName="Calcium" /> <statusCode code="completed" /> <effectiveTime value="180293291833" /> < value unit="mg/dL" xsi:type="PQ" value="9.5" /> <referenceRange> <observationRange> <text>8.6-10.0</text> </ observationRange> </referenceRange> </observation> </ component> <component> <observation moodCode="EVN" classCode="OBS"> <templateId root="10.29.840.1.506984.07.02.22.4.2" /> <id nullFlavor="NA" /> <code codeSystem="local" code="CL" displayName= "Chloride" /> <statusCode code="completed" /> <effectiveTime value="802542476425" /> <value unit="mEq/L" xsi:type="PQ" value="104" / > <referenceRange> <observationRange> <text>99- 109</text> </observationRange> </referenceRange> </ observation> </component> <component> <observation moodCode= "EVN" classCode="OBS"> <templateId root="10.29.840.1.093949...4.2 " /> <id nullFlavor="NA" /> <code codeSystem="local" code="CO2 " displayName="CO2" /> <statusCode code="completed" /> < effectiveTime value="322172747610" /> <value unit="mEq/L" xsi:type="PQ " value="23" /> <referenceRange> <observationRange> <text>22-32</text> </observationRange> </ referenceRange> </observation> </component> <component> <observation moodCode="EVN" classCode="OBS"> <templateId root= "16.840.1.071705.10.22.4.2" /> <id nullFlavor="NA" /> < code codeSystem="local" code="CREAT" displayName="Creatinine" /> < statusCode code="completed" /> <effectiveTime value="292449295044" /> <value unit="mg/dL" xsi:type="PQ" value="1.11" /> < referenceRange> <observationRange> <text>0.64-1.27</text > </observationRange> </referenceRange> </observation > </component> <component> <observation moodCode="EVN" classCode="OBS"> <templateId root="10.29.840.1.252806.07.02.22.4.2" /> <id nullFlavor="NA" /> <code codeSystem="local" code="GLOB" displayName="Globulin" /> <statusCode code="completed" /> < effectiveTime value="932823539168" /> <value unit="g/dL" xsi:type="PQ" value="2.9" /> <referenceRange> <observationRange> <text>1.9-4.3</text> </observationRange> </ referenceRange> </observation> </component> <component> <observation moodCode="EVN" classCode="OBS"> <templateId root= "10.29.840.1.447025.10.22.4.2" /> <id nullFlavor="NA" /> < code codeSystem="local" code="GLU" displayName="Glucose" /> < statusCode code="completed" /> <effectiveTime value="173118028616" /> <value unit="mg/dL" xsi:type="PQ" value="98" /> < referenceRange> <observationRange> <text>70-100</text> </observationRange> </referenceRange> </observation> </component> <component> <observation moodCode="EVN" classCode ="OBS"> <templateId root="16.840.1.098708.10.20.22.4.2" /> < id nullFlavor="NA" /> <code codeSystem="local" code="K" displayName= "Potassium" /> <statusCode code="completed" /> <effectiveTime value="328791499959" /> <value unit="mEq/L" xsi:type="PQ" value="3.5" / > <interpretationCode codeSystem="local" code="*" /> < referenceRange> <observationRange> <text>3.6-5.1</text> </observationRange> </referenceRange> </observation > </component> <component> <observation moodCode="EVN" classCode="OBS"> <templateId root="10.29.840.1.380482.10.20.22.4.2" /> <id nullFlavor="NA" /> <code codeSystem="local" code="TP" displayName="Protein" /> <statusCode code="completed" /> < effectiveTime value="137536425139" /> <value unit="g/dL" xsi:type="PQ" value="6.7" /> <referenceRange> <observationRange> <text>6.1-7.9</text> </observationRange> </ referenceRange> </observation> </component> <component> <observation moodCode="EVN" classCode="OBS"> <templateId root= "2.16.840.1.211995.10.22.4.2" /> <id nullFlavor="NA" /> < code codeSystem="local" code="NA" displayName="Sodium" /> <statusCode code="completed" /> <effectiveTime value="420435670488" /> < value unit="mEq/L" xsi:type="PQ" value="138" /> <referenceRange> <observationRange> <text>136-144</text> </ observationRange> </referenceRange> </observation> </ component> </organizer> </entry> <entry> <organizer moodCode="EVN" classCode="BATTERY"> <templateId root="216.840.1.115850.10.4.1" /> <id nullFlavor="NA" /> <code codeSystem="local" code="GFR" displayName ="eGFR" /> <statusCode code="completed" /> <component> < observation moodCode="EVN" classCode="OBS"> <templateId root= "216.840.1.573405.10..22.4.2" /> <id nullFlavor="NA" /> < code codeSystem="local" code="GFR" displayName="eGFR" /> <statusCode code="completed" /> <effectiveTime value="862734913376" /> < value unit="mL/min" xsi:type="PQ" value=">60" /> <referenceRange> <observationRange> <text>>60</text> </ observationRange> </referenceRange> </observation> </ component> </organizer> </entry> <entry> <organizer moodCode="EVN" classCode="BATTERY"> <templateId root="216.840.1.440655.10.22.4.1" /> <id nullFlavor="NA" /> <code codeSystem="local" code="TROP" displayName="Troponin" /> <statusCode code="completed" /> <component> <observation moodCode="EVN" classCode="OBS"> <templateId root= "16.840.1.242510.10..4.2" /> <id nullFlavor="NA" /> < code codeSystem="local" code="TROP" displayName="Troponin" /> < statusCode code="completed" /> <effectiveTime value="661161652241" /> <value unit="ng/mL" xsi:type="PQ" value="<0.05" /> < referenceRange> <observationRange> <text><0.06</text > </observationRange> </referenceRange> </observation > </component> </organizer> </entry> <entry> <organizer moodCode= "EVN" classCode="BATTERY"> <templateId root="10.29.840.1.995422.10..4.1 " /> <id nullFlavor="NA" /> <code codeSystem="local" code="UA" displayName="Urinalysis with reflex microscopic" /> <statusCode code= "completed" /> <component> <observation moodCode="EVN" classCode= "OBS"> <templateId root="10.29.840.1.448337.10.4.2" /> < id nullFlavor="NA" /> <code codeSystem="local" code="UAPP" displayName= "Appearance" /> <statusCode code="completed" /> < effectiveTime value="229683758610" /> <value unit="NA" xsi:type="PQ" value="Cloudy" /> <interpretationCode codeSystem="local" code="*" /> <referenceRange> <observationRange> <text /> </observationRange> </referenceRange> </observation> </component> <component> <observation moodCode="EVN" classCode= "OBS"> <templateId root="216.840.1.021117.10.4.2" /> < id nullFlavor="NA" /> <code codeSystem="local" code="UBIL" displayName= "Bilirubin" /> <statusCode code="completed" /> <effectiveTime value="" /> <value unit="NA" xsi:type="PQ" value="Negative " /> <referenceRange> <observationRange> <text> Negative</text> </observationRange> </referenceRange> </observation> </component> <component> <observation moodCode ="EVN" classCode="OBS"> <templateId root= "2.840.1.951083.07.02.22.4.2" /> <id nullFlavor="NA" /> < code codeSystem="local" code="UBLD" displayName="Blood" /> <statusCode code="completed" /> <effectiveTime value="" /> < value unit="NA" xsi:type="PQ" value="Negative" /> <referenceRange> <observationRange> <text>Negative</text> </ observationRange> </referenceRange> </observation> </ component> <component> <observation moodCode="EVN" classCode="OBS"> <templateId root="10.29.840.1.113244.07.02.22.4.2" /> <id nullFlavor="NA" /> <code codeSystem="local" code="UCOLR" displayName= "Color" /> <statusCode code="completed" /> <effectiveTime value="" /> <value unit="NA" xsi:type="PQ" value="Yellow" / > <referenceRange> <observationRange> <text /> </observationRange> </referenceRange> </observation > </component> <component> <observation moodCode="EVN" classCode="OBS"> <templateId root="16.840.1.361178.10.4.2" /> <id nullFlavor="NA" /> <code codeSystem="local" code="UGLU" displayName="Glucose, Urine" /> <statusCode code="completed" /> <effectiveTime value="" /> <value unit="" xsi:type="PQ" value="Negative" /> <referenceRange> <observationRange> <text>Negative</text> </observationRange> </ referenceRange> </observation> </component> <component> <observation moodCode="EVN" classCode="OBS"> <templateId root= "10.29.840.1.472493.07.02.224.2" /> <id nullFlavor="NA" /> < code codeSystem="local" code="UKET" displayName="Ketones" /> < statusCode code="completed" /> <effectiveTime value="" /> <value unit="" xsi:type="PQ" value="Pos 1+" /> < interpretationCode codeSystem="local" code="*" /> <referenceRange> <observationRange> <text>Negative</text> </ observationRange> </referenceRange> </observation> </ component> <component> <observation moodCode="EVN" classCode="OBS"> <templateId root="10.29.840.1.357866.07.02.22.4.2" /> <id nullFlavor="NA" /> <code codeSystem="local" code="ULEU" displayName= "Leukocyte Esterase" /> <statusCode code="completed" /> < effectiveTime value="" /> <value unit="NA" xsi:type="PQ" value="Trace" /> <interpretationCode codeSystem="local" code="*" /> <referenceRange> <observationRange> <text> Negative</text> </observationRange> </referenceRange> </observation> </component> <component> <observation moodCode ="EVN" classCode="OBS"> <templateId root= "10.29.840.1.725723.10.22.4.2" /> <id nullFlavor="NA" /> < code codeSystem="local" code="UNIT" displayName="Nitrites" /> < statusCode code="completed" /> <effectiveTime value="489786802615" /> <value unit="NA" xsi:type="PQ" value="Negative" /> < referenceRange> <observationRange> <text>Negative</text > </observationRange> </referenceRange> </observation > </component> <component> <observation moodCode="EVN" classCode="OBS"> <templateId root="10.29.840.1.354454.07.02.22.4.2" /> <id nullFlavor="NA" /> <code codeSystem="local" code="UPH" displayName="pH" /> <statusCode code="completed" /> < effectiveTime value="526546454137" /> <value unit="NA" xsi:type="PQ" value="5.0" /> <referenceRange> <observationRange> <text>5.0-8.0</text> </observationRange> </ referenceRange> </observation> </component> <component> <observation moodCode="EVN" classCode="OBS"> <templateId root= "10.29.840.1.721769..22.4.2" /> <id nullFlavor="NA" /> < code codeSystem="local" code="UPRO" displayName="Protein" /> < statusCode code="completed" /> <effectiveTime value="086634031055" /> <value unit="NA" xsi:type="PQ" value="Pos 1+" /> < interpretationCode codeSystem="local" code="*" /> <referenceRange> <observationRange> <text>Negative</text> </ observationRange> </referenceRange> </observation> </ component> <component> <observation moodCode="EVN" classCode="OBS"> <templateId root="16.840.1.414985.10..22.4.2" /> <id nullFlavor="NA" /> <code codeSystem="local" code="USPG" displayName= "Specific [place]" /> <statusCode code="completed" /> < effectiveTime value="238490445281" /> <value unit="NA" xsi:type="PQ" value="1.025" /> <referenceRange> <observationRange> <text>1.003-1.030</text> </observationRange> </ referenceRange> </observation> </component> <component> <observation moodCode="EVN" classCode="OBS"> <templateId root= "16.840.1.116803.10..22.4.2" /> <id nullFlavor="NA" /> < code codeSystem="local" code="UTYP" displayName="UA Collection type" /> <statusCode code="completed" /> <effectiveTime value="330598559279" / > <value unit="NA" xsi:type="PQ" value="Clean Catch" /> < referenceRange> <observationRange> <text /> < /observationRange> </referenceRange> </observation> </ component> <component> <observation moodCode="EVN" classCode="OBS"> <templateId root="10.29.840.1.973498.07.02.22.4.2" /> <id nullFlavor="NA" /> <code codeSystem="local" code="UURO" displayName= "Urobilinogen" /> <statusCode code="completed" /> < effectiveTime value="182944080851" /> <value unit="mg/dL" xsi:type="PQ " value="4.0" /> <referenceRange> <observationRange> <text><1.0</text> </observationRange> </ referenceRange> </observation> </component> </organizer> </entry > <entry> <organizer moodCode="EVN" classCode="BATTERY"> <templateId root="10.29.840.1.385195.07.02.22.4.1" /> <id nullFlavor="NA" /> <code codeSystem="local" code="UMIC" displayName="Urine Microscopic" /> < statusCode code="completed" /> <component> <observation moodCode= "EVN" classCode="OBS"> <templateId root="10.29.840.1.283855.07.02.22.4.2 " /> <id nullFlavor="NA" /> <code codeSystem="local" code= "UBAC" displayName="Bacteria" /> <statusCode code="completed" /> <effectiveTime value="742912815800" /> <value unit="NA" xsi:type= "PQ" value="Occasional" /> <interpretationCode codeSystem="local" code= "*" /> <referenceRange> <observationRange> < text /> </observationRange> </referenceRange> </ observation> </component> <component> <observation moodCode= "EVN" classCode="OBS"> <templateId root="10.29.840.1.390717.07.02.22.4.2 " /> <id nullFlavor="NA" /> <code codeSystem="local" code= "UCRY1" displayName="Crystals" /> <statusCode code="completed" /> <effectiveTime value="" /> <value unit="NA" xsi:type= "PQ" value="Ca Ox" /> <referenceRange> <observationRange> <text /> </observationRange> </referenceRange> </observation> </component> <component> <observation moodCode="EVN" classCode="OBS"> <templateId root= "16.840.1.971264.10.20.22.4.2" /> <id nullFlavor="NA" /> < code codeSystem="local" code="UEPI" displayName="Epithelial Cells" /> < statusCode code="completed" /> <effectiveTime value="" /> <value unit="/HPF" xsi:type="PQ" value="2" /> <referenceRange > <observationRange> <text /> </ observationRange> </referenceRange> </observation> </ component> <component> <observation moodCode="EVN" classCode="OBS"> <templateId root="10.29.840.1.719957.10..22.4.2" /> <id nullFlavor="NA" /> <code codeSystem="local" code="URBC" displayName= "RBC, Urine" /> <statusCode code="completed" /> < effectiveTime value="" /> <value unit="/HPF" xsi:type="PQ" value="10" /> <interpretationCode codeSystem="local" code="*" /> <referenceRange> <observationRange> <text>0-2</text > </observationRange> </referenceRange> </observation > </component> <component> <observation moodCode="EVN" classCode="OBS"> <templateId root="2.16.840.1.340717.07.02.22.4.2" /> <id nullFlavor="NA" /> <code codeSystem="local" code="UMUC" displayName="Urine Mucus" /> <statusCode code="completed" /> < effectiveTime value="" /> <value unit="NA" xsi:type="PQ" value="Present" /> <referenceRange> <observationRange> <text /> </observationRange> </referenceRange> </observation> </component> <component> <observation moodCode="EVN" classCode="OBS"> <templateId root= "840.1.333197.07.02.224.2" /> <id nullFlavor="NA" /> < code codeSystem="local" code="UWBC" displayName="WBC, Urine" /> < statusCode code="completed" /> <effectiveTime value="" /> <value unit="/HPF" xsi:type="PQ" value="20" /> < interpretationCode codeSystem="local" code="*" /> <referenceRange> <observationRange> <text>0-4</text> </ observationRange> </referenceRange> </observation> </ component> </organizer> </entry> <entry> <organizer moodCode="EVN" classCode="BATTERY"> <templateId root="10.29.840.1.163540.07.02.22.4.1" /> <id nullFlavor="NA" /> <code codeSystem="local" code="UDRGH" displayName="Urine Drug Screen" /> <statusCode code="completed" /> < component> <observation moodCode="EVN" classCode="OBS"> < templateId root="10.29.840.1.226045.07.02.22.4.2" /> <id nullFlavor="NA " /> <code codeSystem="local" code="UAMP1" displayName="Amph/Meth/ Ecstasy" /> <statusCode code="completed" /> <effectiveTime value="" /> <value unit="NA" xsi:type="PQ" value="Negative " /> <referenceRange> <observationRange> <text /> </observationRange> </referenceRange> </ observation> </component> <component> <observation moodCode= "EVN" classCode="OBS"> <templateId root="16.840.1.659842...4.2 " /> <id nullFlavor="NA" /> <code codeSystem="local" code= "UBAR1" displayName="Barbiturates" /> <statusCode code="completed" /> <effectiveTime value="" /> <value unit="NA" xsi: type="PQ" value="Negative" /> <referenceRange> < observationRange> <text /> </observationRange> </referenceRange> </observation> </component> <component> <observation moodCode="EVN" classCode="OBS"> <templateId root= "10.29.840.1.653996.22.4.2" /> <id nullFlavor="NA" /> < code codeSystem="local" code="UBEN1" displayName="Benzodiazepine" /> < statusCode code="completed" /> <effectiveTime value="" /> <value unit="NA" xsi:type="PQ" value="Negative" /> < referenceRange> <observationRange> <text /> < /observationRange> </referenceRange> </observation> </ component> <component> <observation moodCode="EVN" classCode="OBS"> <templateId root="10.29.840.1.310476.07.02.22.4.2" /> <id nullFlavor="NA" /> <code codeSystem="local" code="UCAN1" displayName= "Cannabinoid" /> <statusCode code="completed" /> < effectiveTime value="" /> <value unit="NA" xsi:type="PQ" value="Negative" /> <referenceRange> <observationRange> <text /> </observationRange> </referenceRange> </observation> </component> <component> <observation moodCode="EVN" classCode="OBS"> <templateId root= "216.840.1.142430.10...4.2" /> <id nullFlavor="NA" /> < code codeSystem="local" code="UCOC1" displayName="Cocaine" /> < statusCode code="completed" /> <effectiveTime value="" /> <value unit="NA" xsi:type="PQ" value="Negative" /> < referenceRange> <observationRange> <text /> < /observationRange> </referenceRange> </observation> </ component> <component> <observation moodCode="EVN" classCode="OBS"> <templateId root="216.840.1.884502.10..22.4.2" /> <id nullFlavor="NA" /> <code codeSystem="local" code="UMTD1" displayName= "EDDP (Methadone met.)" /> <statusCode code="completed" /> < effectiveTime value="" /> <value unit="NA" xsi:type="PQ" value="Negative" /> <referenceRange> <observationRange> <text /> </observationRange> </referenceRange> </observation> </component> <component> <observation moodCode="EVN" classCode="OBS"> <templateId root= "10.29.840.1.344299.07.02.22.4.2" /> <id nullFlavor="NA" /> < code codeSystem="local" code="UOPI1" displayName="Opiate" /> < statusCode code="completed" /> <effectiveTime value="" /> <value unit="NA" xsi:type="PQ" value="Negative" /> < referenceRange> <observationRange> <text /> < /observationRange> </referenceRange> </observation> </ component> <component> <observation moodCode="EVN" classCode="OBS"> <templateId root="840.1.257048.07.02.224.2" /> <id nullFlavor="NA" /> <code codeSystem="local" code="UPCP1" displayName= "Phencyclidine (PCP)" /> <statusCode code="completed" /> < effectiveTime value="" /> <value unit="NA" xsi:type="PQ" value="Negative" /> <referenceRange> <observationRange> <text /> </observationRange> </referenceRange> </observation> </component> </organizer> </entry> <entry> < organizer moodCode="EVN" classCode="BATTERY"> <templateId root= "840.1.166471.07.02.22.4.1" /> <id nullFlavor="NA" /> <code codeSystem="local" code="TSHR" displayName="TSH with Reflex Free T4" /> < statusCode code="completed" /> <component> <observation moodCode= "EVN" classCode="OBS"> <templateId root="840.1.335976.07.02.22.4.2 " /> <id nullFlavor="NA" /> <code codeSystem="local" code= "TSHR" displayName="TSH with Reflex Free T4" /> <statusCode code= "completed" /> <effectiveTime value="400320837331" /> <value unit="uIU/mL" xsi:type="PQ" value="0.84" /> <referenceRange> <observationRange> <text>0.35-4.94</text> </ observationRange> </referenceRange> </observation> </ component> </organizer> </entry> <entry> <organizer moodCode="EVN" classCode="BATTERY"> <templateId root="216.840.1.753132.10..22.4.1" /> <id nullFlavor="NA" /> <code codeSystem="local" code="CBCWD" displayName="CBC With Platelet and Differential" /> <statusCode code= "completed" /> <component> <observation moodCode="EVN" classCode= "OBS"> <templateId root="216.840.1.555421.10..22.4.2" /> < id nullFlavor="NA" /> <code codeSystem="local" code="ABASR" displayName ="Absolute Basophils" /> <statusCode code="completed" /> < effectiveTime value="148626041631" /> <value unit="10*3/uL" xsi:type= "PQ" value="0.03" /> <referenceRange> <observationRange> <text>0.00-0.20</text> </observationRange> </ referenceRange> </observation> </component> <component> <observation moodCode="EVN" classCode="OBS"> <templateId root= "216.840.1.723122.10...4.2" /> <id nullFlavor="NA" /> < code codeSystem="local" code="AEOSR" displayName="Absolute Eosinophils" /> <statusCode code="completed" /> <effectiveTime value=" " /> <value unit="10*3/uL" xsi:type="PQ" value="0.15" /> < referenceRange> <observationRange> <text>0.00-0.50</text > </observationRange> </referenceRange> </observation > </component> <component> <observation moodCode="EVN" classCode="OBS"> <templateId root="216.840.1.121810.10..4.2" /> <id nullFlavor="NA" /> <code codeSystem="local" code="ALYMR" displayName="Absolute Lymphocytes" /> <statusCode code="completed" /> <effectiveTime value="418312059664" /> <value unit="10*3/uL" xsi:type="PQ" value="1.44" /> <referenceRange> < observationRange> <text>0.80-3.30</text> </ observationRange> </referenceRange> </observation> </ component> <component> <observation moodCode="EVN" classCode="OBS"> <templateId root="216.840.1.476097...4.2" /> <id nullFlavor="NA" /> <code codeSystem="local" code="AMONR" displayName= "Absolute Monocytes" /> <statusCode code="completed" /> < effectiveTime value="754933172321" /> <value unit="10*3/uL" xsi:type= "PQ" value="0.75" /> <referenceRange> <observationRange> <text>0.30-1.00</text> </observationRange> </ referenceRange> </observation> </component> <component> <observation moodCode="EVN" classCode="OBS"> <templateId root= "216.840.1.195298..4.2" /> <id nullFlavor="NA" /> < code codeSystem="local" code="ASEGR" displayName="Absolute Neutrophils" /> <statusCode code="completed" /> <effectiveTime value=" " /> <value unit="10*3/uL" xsi:type="PQ" value="7.74" /> < interpretationCode codeSystem="local" code="*" /> <referenceRange> <observationRange> <text>1.90-7.00</text> </ observationRange> </referenceRange> </observation> </ component> <component> <observation moodCode="EVN" classCode="OBS"> <templateId root="2.16.840.1.480699.07.02.224.2" /> <id nullFlavor="NA" /> <code codeSystem="local" code="BASOR" displayName= "Basophils" /> <statusCode code="completed" /> <effectiveTime value="" /> <value unit="%" xsi:type="PQ" value="0" /> <referenceRange> <observationRange> <text>0-2< /text> </observationRange> </referenceRange> </ observation> </component> <component> <observation moodCode= "EVN" classCode="OBS"> <templateId root="2.16.840.1.079144.10.4.2 " /> <id nullFlavor="NA" /> <code codeSystem="local" code= "EOSR" displayName="Eosinophils" /> <statusCode code="completed" /> <effectiveTime value="" /> <value unit="%" xsi: type="PQ" value="2" /> <referenceRange> <observationRange> <text>0-4</text> </observationRange> </ referenceRange> </observation> </component> <component> <observation moodCode="EVN" classCode="OBS"> <templateId root= "216.840.1.753665.10.20.22.4.2" /> <id nullFlavor="NA" /> < code codeSystem="local" code="HCT" displayName="HCT" /> <statusCode code="completed" /> <effectiveTime value="" /> < value unit="%" xsi:type="PQ" value="46.8" /> <referenceRange> <observationRange> <text>42.0-52.0</text> </ observationRange> </referenceRange> </observation> </ component> <component> <observation moodCode="EVN" classCode="OBS"> <templateId root="216.840.1.545893.10..4.2" /> <id nullFlavor="NA" /> <code codeSystem="local" code="HGB" displayName="HGB " /> <statusCode code="completed" /> <effectiveTime value= "" /> <value unit="g/dL" xsi:type="PQ" value="15.8" /> <referenceRange> <observationRange> <text>14.0- 18.0</text> </observationRange> </referenceRange> </ observation> </component> <component> <observation moodCode= "EVN" classCode="OBS"> <templateId root="16.840.1.093627.10.20.22.4.2 " /> <id nullFlavor="NA" /> <code codeSystem="local" code= "IMGA" displayName="Immature Granulocytes" /> <statusCode code= "completed" /> <effectiveTime value="639148582407" /> <value unit="%" xsi:type="PQ" value="0.3" /> <referenceRange> < observationRange> <text>0.0-1.0</text> </ observationRange> </referenceRange> </observation> </ component> <component> <observation moodCode="EVN" classCode="OBS"> <templateId root="16.840.1.094609.10.20.22.4.2" /> <id nullFlavor="NA" /> <code codeSystem="local" code="LYMPR" displayName= "Lymphocytes" /> <statusCode code="completed" /> < effectiveTime value="598524872477" /> <value unit="%" xsi:type="PQ " value="14" /> <interpretationCode codeSystem="local" code="*" /> <referenceRange> <observationRange> <text>20-46</ text> </observationRange> </referenceRange> </ observation> </component> <component> <observation moodCode= "EVN" classCode="OBS"> <templateId root="840.1.266567.10.22.4.2 " /> <id nullFlavor="NA" /> <code codeSystem="local" code="MCH " displayName="MCH" /> <statusCode code="completed" /> < effectiveTime value="768170575650" /> <value unit="pg" xsi:type="PQ" value="29.0" /> <referenceRange> <observationRange> <text>27.0-32.0</text> </observationRange> </ referenceRange> </observation> </component> <component> <observation moodCode="EVN" classCode="OBS"> <templateId root= "10.29.840.1.929805.10.20.22.4.2" /> <id nullFlavor="NA" /> < code codeSystem="local" code="MCHC" displayName="MCHC" /> <statusCode code="completed" /> <effectiveTime value="835251954782" /> < value unit="g/dL" xsi:type="PQ" value="33.8" /> <referenceRange> <observationRange> <text>32.0-36.0</text> </ observationRange> </referenceRange> </observation> </ component> <component> <observation moodCode="EVN" classCode="OBS"> <templateId root="10.29.840.1.580090.10...4.2" /> <id nullFlavor="NA" /> <code codeSystem="local" code="MCV" displayName="MCV " /> <statusCode code="completed" /> <effectiveTime value= "061896835275" /> <value unit="fL" xsi:type="PQ" value="86.0" /> <referenceRange> <observationRange> <text>82.0-99.0< /text> </observationRange> </referenceRange> </ observation> </component> <component> <observation moodCode= "EVN" classCode="OBS"> <templateId root="10.29.840.1.936383....4.2 " /> <id nullFlavor="NA" /> <code codeSystem="local" code= "MONOR" displayName="Monocytes" /> <statusCode code="completed" /> <effectiveTime value="923888230453" /> <value unit="%" xsi: type="PQ" value="7" /> <referenceRange> <observationRange> <text>4-11</text> </observationRange> </ referenceRange> </observation> </component> <component> <observation moodCode="EVN" classCode="OBS"> <templateId root= "10.29.840.1.056359.10...4.2" /> <id nullFlavor="NA" /> < code codeSystem="local" code="MPV" displayName="MPV" /> <statusCode code="completed" /> <effectiveTime value="569991136124" /> < value unit="fL" xsi:type="PQ" value="10.8" /> <referenceRange> <observationRange> <text>9.4-12.3</text> </ observationRange> </referenceRange> </observation> </ component> <component> <observation moodCode="EVN" classCode="OBS"> <templateId root="2.16.840.1.306024.10...4.2" /> <id nullFlavor="NA" /> <code codeSystem="local" code="SEGR" displayName= "Neutrophils" /> <statusCode code="completed" /> < effectiveTime value="473582330803" /> <value unit="%" xsi:type="PQ " value="76" /> <interpretationCode codeSystem="local" code="*" /> <referenceRange> <observationRange> <text>51-75</ text> </observationRange> </referenceRange> </ observation> </component> <component> <observation moodCode= "EVN" classCode="OBS"> <templateId root="2.16.840.1.723562.10...4.2 " /> <id nullFlavor="NA" /> <code codeSystem="local" code= "NRBCA" displayName="Nucleated RBC Automated" /> <statusCode code= "completed" /> <effectiveTime value="686606965029" /> <value unit="/100WBC" xsi:type="PQ" value="0.0" /> <referenceRange> <observationRange> <text /> </observationRange> </referenceRange> </observation> </component> <component> <observation moodCode="EVN" classCode="OBS"> <templateId root= "16.840.1.120946.10.20.22.4.2" /> <id nullFlavor="NA" /> < code codeSystem="local" code="PLT" displayName="Platelet Count" /> < statusCode code="completed" /> <effectiveTime value="232760088450" /> <value unit="K/uL" xsi:type="PQ" value="208" /> < referenceRange> <observationRange> <text>150-400</text> </observationRange> </referenceRange> </observation > </component> <component> <observation moodCode="EVN" classCode="OBS"> <templateId root="10.29.840.1.590203.10..22.4.2" /> <id nullFlavor="NA" /> <code codeSystem="local" code="RBC" displayName="RBC" /> <statusCode code="completed" /> < effectiveTime value="" /> <value unit="10*6/uL" xsi:type= "PQ" value="5.44" /> <referenceRange> <observationRange> <text>4.60-6.20</text> </observationRange> </ referenceRange> </observation> </component> <component> <observation moodCode="EVN" classCode="OBS"> <templateId root= "10.29.840.1.711873.10.20.22.4.2" /> <id nullFlavor="NA" /> < code codeSystem="local" code="RDW" displayName="RDW" /> <statusCode code="completed" /> <effectiveTime value="309231358615" /> < value unit="%" xsi:type="PQ" value="13.7" /> <referenceRange> <observationRange> <text>11.5-14.5</text> </ observationRange> </referenceRange> </observation> </ component> <component> <observation moodCode="EVN" classCode="OBS"> <templateId root="216.840.1.747173.10..22.4.2" /> <id nullFlavor="NA" /> <code codeSystem="local" code="WBCIR" displayName= "WBC" /> <statusCode code="completed" /> <effectiveTime value= "663664478508" /> <value unit="K/uL" xsi:type="PQ" value="10.1" /> <referenceRange> <observationRange> <text>4.8-10.8 </text> </observationRange> </referenceRange> </ observation> </component> </organizer> </entry> <entry> <organizer moodCode="EVN" classCode="BATTERY"> <templateId root= "216.840.1.640004.10..22.4.1" /> <id nullFlavor="NA" /> <code codeSystem="local" code="UA" displayName="Urinalysis with reflex microscopic" / > <statusCode code="completed" /> <component> <observation moodCode="EVN" classCode="OBS"> <templateId root= "216.840.1.179818.10..22.4.2" /> <id nullFlavor="NA" /> < code codeSystem="local" code="UAPP" displayName="Appearance" /> < statusCode code="completed" /> <effectiveTime value="434923356597" /> <value unit="NA" xsi:type="PQ" value="Clear" /> < referenceRange> <observationRange> <text /> < /observationRange> </referenceRange> </observation> </ component> <component> <observation moodCode="EVN" classCode="OBS"> <templateId root="16.840.1.385577.10..22.4.2" /> <id nullFlavor="NA" /> <code codeSystem="local" code="UBIL" displayName= "Bilirubin" /> <statusCode code="completed" /> <effectiveTime value="" /> <value unit="NA" xsi:type="PQ" value="Negative " /> <referenceRange> <observationRange> <text> Negative</text> </observationRange> </referenceRange> </observation> </component> <component> <observation moodCode ="EVN" classCode="OBS"> <templateId root= "10.29.840.1.599527....4.2" /> <id nullFlavor="NA" /> < code codeSystem="local" code="UBLD" displayName="Blood" /> <statusCode code="completed" /> <effectiveTime value="" /> < value unit="NA" xsi:type="PQ" value="Pos 2+" /> <interpretationCode codeSystem="local" code="*" /> <referenceRange> < observationRange> <text>Negative</text> </ observationRange> </referenceRange> </observation> </ component> <component> <observation moodCode="EVN" classCode="OBS"> <templateId root="10.29.840.1.975130.10..22.4.2" /> <id nullFlavor="NA" /> <code codeSystem="local" code="UCOLR" displayName= "Color" /> <statusCode code="completed" /> <effectiveTime value="248636941826" /> <value unit="NA" xsi:type="PQ" value="Colorless " /> <referenceRange> <observationRange> <text /> </observationRange> </referenceRange> </ observation> </component> <component> <observation moodCode= "EVN" classCode="OBS"> <templateId root="16.840.1.139527.1022.4.2 " /> <id nullFlavor="NA" /> <code codeSystem="local" code= "UGLU" displayName="Glucose, Urine" /> <statusCode code="completed" /> <effectiveTime value="" /> <value unit="" xsi: type="PQ" value="Negative" /> <referenceRange> < observationRange> <text>Negative</text> </ observationRange> </referenceRange> </observation> </ component> <component> <observation moodCode="EVN" classCode="OBS"> <templateId root="216.840.1.230358...4.2" /> <id nullFlavor="NA" /> <code codeSystem="local" code="UKET" displayName= "Ketones" /> <statusCode code="completed" /> <effectiveTime value="" /> <value unit="" xsi:type="PQ" value="Negative" / > <referenceRange> <observationRange> <text> Negative</text> </observationRange> </referenceRange> </observation> </component> <component> <observation moodCode ="EVN" classCode="OBS"> <templateId root= "16.840.1.850301.10.22.4.2" /> <id nullFlavor="NA" /> < code codeSystem="local" code="ULEU" displayName="Leukocyte Esterase" /> <statusCode code="completed" /> <effectiveTime value="" / > <value unit="NA" xsi:type="PQ" value="Negative" /> < referenceRange> <observationRange> <text>Negative</text > </observationRange> </referenceRange> </observation > </component> <component> <observation moodCode="EVN" classCode="OBS"> <templateId root="16.840.1.950365.10.4.2" /> <id nullFlavor="NA" /> <code codeSystem="local" code="UNIT" displayName="Nitrites" /> <statusCode code="completed" /> < effectiveTime value="" /> <value unit="NA" xsi:type="PQ" value="Negative" /> <referenceRange> <observationRange> <text>Negative</text> </observationRange> </ referenceRange> </observation> </component> <component> <observation moodCode="EVN" classCode="OBS"> <templateId root= "10.29.840.1.658876.07.02.22.4.2" /> <id nullFlavor="NA" /> < code codeSystem="local" code="UPH" displayName="pH" /> <statusCode code ="completed" /> <effectiveTime value="" /> <value unit="NA" xsi:type="PQ" value="7.0" /> <referenceRange> < observationRange> <text>5.0-8.0</text> </ observationRange> </referenceRange> </observation> </ component> <component> <observation moodCode="EVN" classCode="OBS"> <templateId root="10.29.840.1.490549.10.4.2" /> <id nullFlavor="NA" /> <code codeSystem="local" code="UPRO" displayName= "Protein" /> <statusCode code="completed" /> <effectiveTime value="" /> <value unit="NA" xsi:type="PQ" value="Negative " /> <referenceRange> <observationRange> <text> Negative</text> </observationRange> </referenceRange> </observation> </component> <component> <observation moodCode ="EVN" classCode="OBS"> <templateId root= "216.840.1.372353.10..4.2" /> <id nullFlavor="NA" /> < code codeSystem="local" code="USPG" displayName="Specific [place]" /> < statusCode code="completed" /> <effectiveTime value="579166262112" /> <value unit="NA" xsi:type="PQ" value="<1.003" /> < referenceRange> <observationRange> <text>1.003-1.030</ text> </observationRange> </referenceRange> </ observation> </component> <component> <observation moodCode= "EVN" classCode="OBS"> <templateId root="16.840.1.816816.10..4.2 " /> <id nullFlavor="NA" /> <code codeSystem="local" code= "UTYP" displayName="UA Collection type" /> <statusCode code="completed " /> <effectiveTime value="902249986739" /> <value unit="NA" xsi:type="PQ" value="Clean Catch" /> <referenceRange> < observationRange> <text /> </observationRange> </referenceRange> </observation> </component> <component> <observation moodCode="EVN" classCode="OBS"> <templateId root= "16.840.1.143346.10.4.2" /> <id nullFlavor="NA" /> < code codeSystem="local" code="UURO" displayName="Urobilinogen" /> < statusCode code="completed" /> <effectiveTime value="264278822643" /> <value unit="mg/dL" xsi:type="PQ" value="Negative" /> < referenceRange> <observationRange> <text><1.0</text> </observationRange> </referenceRange> </observation > </component> </organizer> </entry> <entry> <organizer moodCode= "EVN" classCode="BATTERY"> <templateId root="16.840.1.099441.07.02.22.4.1 " /> <id nullFlavor="NA" /> <code codeSystem="local" code="UMIC" displayName="Urine Microscopic" /> <statusCode code="completed" /> < component> <observation moodCode="EVN" classCode="OBS"> < templateId root="16.840.1.871338.10..4.2" /> <id nullFlavor="NA " /> <code codeSystem="local" code="UBAC" displayName="Bacteria" /> <statusCode code="completed" /> <effectiveTime value= "073631821024" /> <value unit="NA" xsi:type="PQ" value="None Seen" /> <referenceRange> <observationRange> <text /> </observationRange> </referenceRange> </observation> </component> <component> <observation moodCode="EVN" classCode= "OBS"> <templateId root="16.840.1.293381.10..4.2" /> < id nullFlavor="NA" /> <code codeSystem="local" code="UEPI" displayName= "Epithelial Cells" /> <statusCode code="completed" /> < effectiveTime value="" /> <value unit="/HPF" xsi:type="PQ" value="None Seen" /> <referenceRange> <observationRange> <text /> </observationRange> </referenceRange> </observation> </component> <component> <observation moodCode="EVN" classCode="OBS"> <templateId root= "216.840.1.025719.10..4.2" /> <id nullFlavor="NA" /> < code codeSystem="local" code="URBC" displayName="RBC, Urine" /> < statusCode code="completed" /> <effectiveTime value="550964960447" /> <value unit="/HPF" xsi:type="PQ" value="0" /> <referenceRange > <observationRange> <text>0-2</text> </ observationRange> </referenceRange> </observation> </ component> <component> <observation moodCode="EVN" classCode="OBS"> <templateId root="216.840.1.854048.07.02.22.4.2" /> <id nullFlavor="NA" /> <code codeSystem="local" code="UWBC" displayName= "WBC, Urine" /> <statusCode code="completed" /> < effectiveTime value="132587701906" /> <value unit="/HPF" xsi:type="PQ" value="0" /> <referenceRange> <observationRange> <text>0-4</text> </observationRange> </referenceRange> </observation> </component> </organizer> </entry> <entry> < organizer moodCode="EVN" classCode="BATTERY"> <templateId root= "2.16.840.1.982346.10..4.1" /> <id nullFlavor="NA" /> <code codeSystem="local" code="CMP" displayName="Comprehensive Metabolic Panel (CMP)" /> <statusCode code="completed" /> <component> <observation moodCode="EVN" classCode="OBS"> <templateId root= "216.840.1.220318.10..22.4.2" /> <id nullFlavor="NA" /> < code codeSystem="local" code="ALB" displayName="Albumin" /> < statusCode code="completed" /> <effectiveTime value="" /> <value unit="g/dL" xsi:type="PQ" value="4.2" /> < referenceRange> <observationRange> <text>3.5-4.8</text> </observationRange> </referenceRange> </observation > </component> <component> <observation moodCode="EVN" classCode="OBS"> <templateId root="10.29.840.1.178280.10...4.2" /> <id nullFlavor="NA" /> <code codeSystem="local" code="ALP" displayName="Alkaline Phosphatase" /> <statusCode code="completed" /> <effectiveTime value="" /> <value unit="U/L" xsi: type="PQ" value="78" /> <referenceRange> <observationRange> <text>26-104</text> </observationRange> </ referenceRange> </observation> </component> <component> <observation moodCode="EVN" classCode="OBS"> <templateId root= "10.29.840.1.751279.10.2022.4.2" /> <id nullFlavor="NA" /> < code codeSystem="local" code="ALT" displayName="ALT (SGPT)" /> < statusCode code="completed" /> <effectiveTime value="904167342345" /> <value unit="U/L" xsi:type="PQ" value="18" /> <referenceRange > <observationRange> <text>17-63</text> </ observationRange> </referenceRange> </observation> </ component> <component> <observation moodCode="EVN" classCode="OBS"> <templateId root="216.840.1.218617.10...4.2" /> <id nullFlavor="NA" /> <code codeSystem="local" code="AGAP" displayName= "Anion Gap" /> <statusCode code="completed" /> <effectiveTime value="" /> <value unit="mEq/L" xsi:type="PQ" value="8" /> <referenceRange> <observationRange> <text>3-20 </text> </observationRange> </referenceRange> </ observation> </component> <component> <observation moodCode= "EVN" classCode="OBS"> <templateId root="216.840.1.551024...4.2 " /> <id nullFlavor="NA" /> <code codeSystem="local" code="AST " displayName="AST (SGOT)" /> <statusCode code="completed" /> <effectiveTime value="" /> <value unit="U/L" xsi:type="PQ" value="26" /> <referenceRange> <observationRange> <text>15-41</text> </observationRange> </referenceRange > </observation> </component> <component> <observation moodCode="EVN" classCode="OBS"> <templateId root= "16.840.1.082999.10..22.4.2" /> <id nullFlavor="NA" /> < code codeSystem="local" code="BILIT" displayName="Bilirubin Total" /> < statusCode code="completed" /> <effectiveTime value="" /> <value unit="mg/dL" xsi:type="PQ" value="1.0" /> < referenceRange> <observationRange> <text>0.2-1.2</text> </observationRange> </referenceRange> </observation > </component> <component> <observation moodCode="EVN" classCode="OBS"> <templateId root="216.840.1.021440.10.22.4.2" /> <id nullFlavor="NA" /> <code codeSystem="local" code="BUN" displayName="BUN" /> <statusCode code="completed" /> < effectiveTime value="664335580838" /> <value unit="mg/dL" xsi:type="PQ " value="14" /> <referenceRange> <observationRange> <text>4-20</text> </observationRange> </referenceRange > </observation> </component> <component> <observation moodCode="EVN" classCode="OBS"> <templateId root= "10.29.840.1.892901.22.4.2" /> <id nullFlavor="NA" /> < code codeSystem="local" code="CA" displayName="Calcium" /> <statusCode code="completed" /> <effectiveTime value="" /> < value unit="mg/dL" xsi:type="PQ" value="9.7" /> <referenceRange> <observationRange> <text>8.6-10.0</text> </ observationRange> </referenceRange> </observation> </ component> <component> <observation moodCode="EVN" classCode="OBS"> <templateId root="10.29.840.1.334235.1022.4.2" /> <id nullFlavor="NA" /> <code codeSystem="local" code="CL" displayName= "Chloride" /> <statusCode code="completed" /> <effectiveTime value="638824072893" /> <value unit="mEq/L" xsi:type="PQ" value="98" / > <interpretationCode codeSystem="local" code="*" /> < referenceRange> <observationRange> <text>99-109</text> </observationRange> </referenceRange> </observation> </component> <component> <observation moodCode="EVN" classCode ="OBS"> <templateId root="10.29.840.1.788400.1022.4.2" /> < id nullFlavor="NA" /> <code codeSystem="local" code="CO2" displayName= "CO2" /> <statusCode code="completed" /> <effectiveTime value= "" /> <value unit="mEq/L" xsi:type="PQ" value="29" /> <referenceRange> <observationRange> <text>22-32</ text> </observationRange> </referenceRange> </ observation> </component> <component> <observation moodCode= "EVN" classCode="OBS"> <templateId root="10.29.840.1.921990.10.4.2 " /> <id nullFlavor="NA" /> <code codeSystem="local" code= "CREAT" displayName="Creatinine" /> <statusCode code="completed" /> <effectiveTime value="" /> <value unit="mg/dL" xsi: type="PQ" value="0.96" /> <referenceRange> <observationRange > <text>0.64-1.27</text> </observationRange> </ referenceRange> </observation> </component> <component> <observation moodCode="EVN" classCode="OBS"> <templateId root= "10.29.840.1.535821.2022.4.2" /> <id nullFlavor="NA" /> < code codeSystem="local" code="GLOB" displayName="Globulin" /> < statusCode code="completed" /> <effectiveTime value="" /> <value unit="g/dL" xsi:type="PQ" value="3.0" /> < referenceRange> <observationRange> <text>1.9-4.3</text> </observationRange> </referenceRange> </observation > </component> <component> <observation moodCode="EVN" classCode="OBS"> <templateId root="16.840.1.944736.10..22.4.2" /> <id nullFlavor="NA" /> <code codeSystem="local" code="GLU" displayName="Glucose" /> <statusCode code="completed" /> < effectiveTime value="234141276051" /> <value unit="mg/dL" xsi:type="PQ " value="120" /> <interpretationCode codeSystem="local" code="*" /> <referenceRange> <observationRange> <text>70-100< /text> </observationRange> </referenceRange> </ observation> </component> <component> <observation moodCode= "EVN" classCode="OBS"> <templateId root="16.840.1.539695.10.20.22.4.2 " /> <id nullFlavor="NA" /> <code codeSystem="local" code="K" displayName="Potassium" /> <statusCode code="completed" /> < effectiveTime value="971917627280" /> <value unit="mEq/L" xsi:type="PQ " value="3.0" /> <interpretationCode codeSystem="local" code="*" /> <referenceRange> <observationRange> <text>3.6-5.1 </text> </observationRange> </referenceRange> </ observation> </component> <component> <observation moodCode= "EVN" classCode="OBS"> <templateId root="216.840.1.285820.10..22.4.2 " /> <id nullFlavor="NA" /> <code codeSystem="local" code="TP " displayName="Protein" /> <statusCode code="completed" /> < effectiveTime value="910956746140" /> <value unit="g/dL" xsi:type="PQ" value="7.2" /> <referenceRange> <observationRange> <text>6.1-7.9</text> </observationRange> </ referenceRange> </observation> </component> <component> <observation moodCode="EVN" classCode="OBS"> <templateId root= "216.840.1.058643...4.2" /> <id nullFlavor="NA" /> < code codeSystem="local" code="NA" displayName="Sodium" /> <statusCode code="completed" /> <effectiveTime value="324060817116" /> < value unit="mEq/L" xsi:type="PQ" value="135" /> <interpretationCode codeSystem="local" code="*" /> <referenceRange> < observationRange> <text>136-144</text> </ observationRange> </referenceRange> </observation> </ component> </organizer> </entry> <entry> <organizer moodCode="EVN" classCode="BATTERY"> <templateId root="216.840.1.199701.10..22.4.1" /> <id nullFlavor="NA" /> <code codeSystem="local" code="LACID" displayName="Lactic Acid Venous" /> <statusCode code="completed" /> < component> <observation moodCode="EVN" classCode="OBS"> < templateId root="10.29.840.1.534870.10..4.2" /> <id nullFlavor="NA " /> <code codeSystem="local" code="LACID" displayName="Lactic Acid Venous" /> <statusCode code="completed" /> <effectiveTime value="975771089123" /> <value unit="mEq/L" xsi:type="PQ" value="1.1" / > <referenceRange> <observationRange> <text>0.5 -2.0</text> </observationRange> </referenceRange> </ observation> </component> </organizer> </entry> <entry> <organizer moodCode="EVN" classCode="BATTERY"> <templateId root= "10.29.840.1.787278.10..4.1" /> <id nullFlavor="NA" /> <code codeSystem="local" code="GFR" displayName="eGFR" /> <statusCode code= "completed" /> <component> <observation moodCode="EVN" classCode= "OBS"> <templateId root="16.840.1.498721...4.2" /> < id nullFlavor="NA" /> <code codeSystem="local" code="GFR" displayName= "eGFR" /> <statusCode code="completed" /> <effectiveTime value ="766232861151" /> <value unit="mL/min" xsi:type="PQ" value=">60" / > <referenceRange> <observationRange> <text>&gt ;60</text> </observationRange> </referenceRange> </ observation> </component> </organizer> </entry> <entry> <organizer moodCode="EVN" classCode="BATTERY"> <templateId root= "10.29.840.1.868705.07.02.22.4.1" /> <id nullFlavor="NA" /> <code codeSystem="local" code="MG" displayName="Magnesium" /> <statusCode code= "completed" /> <component> <observation moodCode="EVN" classCode= "OBS"> <templateId root="10.29.840.1.418642.07.02.22.4.2" /> < id nullFlavor="NA" /> <code codeSystem="local" code="MG" displayName= "Magnesium" /> <statusCode code="completed" /> <effectiveTime value="514561574238" /> <value unit="mg/dL" xsi:type="PQ" value="1.9" / > <referenceRange> <observationRange> <text>1.8 -2.5</text> </observationRange> </referenceRange> </ observation> </component> </organizer> </entry> <entry> <organizer moodCode="EVN" classCode="BATTERY"> <templateId root= "10.29.840.1.495229.07.02.22.4.1" /> <id nullFlavor="NA" /> <code codeSystem="local" code="BMP" displayName="Basic Metabolic Panel (BMP)" /> <statusCode code="completed" /> <component> <observation moodCode= "EVN" classCode="OBS"> <templateId root="10.29.840.1.795079.07.02.22.4.2 " /> <id nullFlavor="NA" /> <code codeSystem="local" code= "AGAP" displayName="Anion Gap" /> <statusCode code="completed" /> <effectiveTime value="253191551108" /> <value unit="mEq/L" xsi: type="PQ" value="6" /> <referenceRange> <observationRange> <text>3-20</text> </observationRange> </ referenceRange> </observation> </component> <component> <observation moodCode="EVN" classCode="OBS"> <templateId root= "16.840.1.632398.1022.4.2" /> <id nullFlavor="NA" /> < code codeSystem="local" code="BUN" displayName="BUN" /> <statusCode code="completed" /> <effectiveTime value="" /> < value unit="mg/dL" xsi:type="PQ" value="27" /> <interpretationCode codeSystem="local" code="*" /> <referenceRange> < observationRange> <text>4-20</text> </observationRange> </referenceRange> </observation> </component> < component> <observation moodCode="EVN" classCode="OBS"> < templateId root="10.29.840.1.279509.07.02.22.4.2" /> <id nullFlavor="NA " /> <code codeSystem="local" code="CA" displayName="Calcium" /> <statusCode code="completed" /> <effectiveTime value=" " /> <value unit="mg/dL" xsi:type="PQ" value="9.7" /> < referenceRange> <observationRange> <text>8.6-10.0</text > </observationRange> </referenceRange> </observation > </component> <component> <observation moodCode="EVN" classCode="OBS"> <templateId root="10.29.840.1.933227.07.02.22.4.2" /> <id nullFlavor="NA" /> <code codeSystem="local" code="CL" displayName="Chloride" /> <statusCode code="completed" /> < effectiveTime value="492853032798" /> <value unit="mEq/L" xsi:type="PQ " value="109" /> <referenceRange> <observationRange> <text>99-109</text> </observationRange> </ referenceRange> </observation> </component> <component> <observation moodCode="EVN" classCode="OBS"> <templateId root= "216.840.1.291019.10.20.22.4.2" /> <id nullFlavor="NA" /> < code codeSystem="local" code="CO2" displayName="CO2" /> <statusCode code="completed" /> <effectiveTime value="" /> < value unit="mEq/L" xsi:type="PQ" value="24" /> <referenceRange> <observationRange> <text>22-32</text> </ observationRange> </referenceRange> </observation> </ component> <component> <observation moodCode="EVN" classCode="OBS"> <templateId root="10.29.840.1.111561.10..22.4.2" /> <id nullFlavor="NA" /> <code codeSystem="local" code="CREAT" displayName= "Creatinine" /> <statusCode code="completed" /> < effectiveTime value="377961982052" /> <value unit="mg/dL" xsi:type="PQ " value="1.22" /> <referenceRange> <observationRange> <text>0.64-1.27</text> </observationRange> </ referenceRange> </observation> </component> <component> <observation moodCode="EVN" classCode="OBS"> <templateId root= "10.29.840.1.785018.10.20.22.4.2" /> <id nullFlavor="NA" /> < code codeSystem="local" code="GLU" displayName="Glucose" /> < statusCode code="completed" /> <effectiveTime value="" /> <value unit="mg/dL" xsi:type="PQ" value="95" /> < referenceRange> <observationRange> <text>70-100</text> </observationRange> </referenceRange> </observation> </component> <component> <observation moodCode="EVN" classCode ="OBS"> <templateId root="16.840.1.526955.10...4.2" /> < id nullFlavor="NA" /> <code codeSystem="local" code="K" displayName= "Potassium" /> <statusCode code="completed" /> <effectiveTime value="" /> <value unit="mEq/L" xsi:type="PQ" value="4.1" / > <referenceRange> <observationRange> <text>3.6 -5.1</text> </observationRange> </referenceRange> </ observation> </component> <component> <observation moodCode= "EVN" classCode="OBS"> <templateId root="10.29.840.1.513703....4.2 " /> <id nullFlavor="NA" /> <code codeSystem="local" code="NA " displayName="Sodium" /> <statusCode code="completed" /> < effectiveTime value="" /> <value unit="mEq/L" xsi:type="PQ " value="139" /> <referenceRange> <observationRange> <text>136-144</text> </observationRange> </ referenceRange> </observation> </component> </organizer> </entry > <entry> <organizer moodCode="EVN" classCode="BATTERY"> <templateId root="216.840.1.234630.07.02.22.4.1" /> <id nullFlavor="NA" /> <code codeSystem="local" code="GFR" displayName="eGFR" /> <statusCode code= "completed" /> <component> <observation moodCode="EVN" classCode= "OBS"> <templateId root="10.29.840.1.077650.07.02.22.4.2" /> < id nullFlavor="NA" /> <code codeSystem="local" code="GFR" displayName= "eGFR" /> <statusCode code="completed" /> <effectiveTime value ="015688068601" /> <value unit="mL/min" xsi:type="PQ" value="60" /> <referenceRange> <observationRange> <text>>60< /text> </observationRange> </referenceRange> </ observation> </component> </organizer> </entry> <entry> <organizer moodCode="EVN" classCode="BATTERY"> <templateId root= "10.29.840.1.849201.07.02.22.4.1" /> <id nullFlavor="NA" /> <code codeSystem="local" code="B12FO" displayName="B12 and Folate" /> < statusCode code="completed" /> <component> <observation moodCode= "EVN" classCode="OBS"> <templateId root="10.29.840.1.636239.07.02.22.4.2 " /> <id nullFlavor="NA" /> <code codeSystem="local" code= "FOLAT" displayName="Folate" /> <statusCode code="completed" /> <effectiveTime value="585425006431" /> <value unit="ng/mL" xsi:type= "PQ" value="9.3" /> <referenceRange> <observationRange> <text>7.0-31.4</text> </observationRange> </ referenceRange> </observation> </component> <component> <observation moodCode="EVN" classCode="OBS"> <templateId root= "2.16.840.1.940857.10..22.4.2" /> <id nullFlavor="NA" /> < code codeSystem="local" code="B12" displayName="Vitamin B12" /> < statusCode code="completed" /> <effectiveTime value="864172776724" /> <value unit="pg/mL" xsi:type="PQ" value="141" /> < interpretationCode codeSystem="local" code="*" /> <referenceRange> <observationRange> <text>213-816</text> </ observationRange> </referenceRange> </observation> </ component> </organizer> </entry> <entry> <organizer moodCode="EVN" classCode="BATTERY"> <templateId root="2.16.840.1.616068.10..22.4.1" /> <id nullFlavor="NA" /> <code codeSystem="local" code="HIV" displayName ="HIV Antigen/Antibody Combo" /> <statusCode code="completed" /> < component> <observation moodCode="EVN" classCode="OBS"> < templateId root="2.16.840.1.300123.10..22.4.2" /> <id nullFlavor="NA " /> <code codeSystem="local" code="HIV" displayName="HIV Antigen/ Antibody Combo" /> <statusCode code="completed" /> < effectiveTime value="716603765689" /> <value unit="NA" xsi:type="PQ" value="Negative" /> <referenceRange> <observationRange> <text /> </observationRange> </referenceRange> </observation> </component> </organizer> </entry> <entry> < organizer moodCode="EVN" classCode="BATTERY"> <templateId root= "216.840.1.646596.10..22.4.1" /> <id nullFlavor="NA" /> <code codeSystem="local" code="CBCWD" displayName="CBC With Platelet and Differential " /> <statusCode code="completed" /> <component> <observation moodCode="EVN" classCode="OBS"> <templateId root= "216.840.1.833641.10..22.4.2" /> <id nullFlavor="NA" /> < code codeSystem="local" code="ABASR" displayName="Absolute Basophils" /> <statusCode code="completed" /> <effectiveTime value="055177974282" /> <value unit="10*3/uL" xsi:type="PQ" value="0.04" /> < referenceRange> <observationRange> <text>0.00-0.20</text > </observationRange> </referenceRange> </observation > </component> <component> <observation moodCode="EVN" classCode="OBS"> <templateId root="16.840.1.713993.10..22.4.2" /> <id nullFlavor="NA" /> <code codeSystem="local" code="AEOSR" displayName="Absolute Eosinophils" /> <statusCode code="completed" /> <effectiveTime value="037849493727" /> <value unit="10*3/uL" xsi:type="PQ" value="0.24" /> <referenceRange> < observationRange> <text>0.00-0.50</text> </ observationRange> </referenceRange> </observation> </ component> <component> <observation moodCode="EVN" classCode="OBS"> <templateId root="840.1.303264.10..22.4.2" /> <id nullFlavor="NA" /> <code codeSystem="local" code="ALYMR" displayName= "Absolute Lymphocytes" /> <statusCode code="completed" /> < effectiveTime value="412627729089" /> <value unit="10*3/uL" xsi:type= "PQ" value="1.51" /> <referenceRange> <observationRange> <text>0.80-3.30</text> </observationRange> </ referenceRange> </observation> </component> <component> <observation moodCode="EVN" classCode="OBS"> <templateId root= "16.840.1.489142.07.02.22.4.2" /> <id nullFlavor="NA" /> < code codeSystem="local" code="AMONR" displayName="Absolute Monocytes" /> <statusCode code="completed" /> <effectiveTime value="518198738083" /> <value unit="10*3/uL" xsi:type="PQ" value="0.70" /> < referenceRange> <observationRange> <text>0.30-1.00</text > </observationRange> </referenceRange> </observation > </component> <component> <observation moodCode="EVN" classCode="OBS"> <templateId root="10.29.840.1.034566...4.2" /> <id nullFlavor="NA" /> <code codeSystem="local" code="ASEGR" displayName="Absolute Neutrophils" /> <statusCode code="completed" /> <effectiveTime value="214470286280" /> <value unit="10*3/uL" xsi:type="PQ" value="5.96" /> <referenceRange> < observationRange> <text>1.90-7.00</text> </ observationRange> </referenceRange> </observation> </ component> <component> <observation moodCode="EVN" classCode="OBS"> <templateId root="216.840.1.394722.10.22.4.2" /> <id nullFlavor="NA" /> <code codeSystem="local" code="BASOR" displayName= "Basophils" /> <statusCode code="completed" /> <effectiveTime value="991687451909" /> <value unit="%" xsi:type="PQ" value="1" /> <referenceRange> <observationRange> <text>0-2< /text> </observationRange> </referenceRange> </ observation> </component> <component> <observation moodCode= "EVN" classCode="OBS"> <templateId root="16.840.1.712193.07.02.22.4.2 " /> <id nullFlavor="NA" /> <code codeSystem="local" code= "EOSR" displayName="Eosinophils" /> <statusCode code="completed" /> <effectiveTime value="958914849896" /> <value unit="%" xsi: type="PQ" value="3" /> <referenceRange> <observationRange> <text>0-4</text> </observationRange> </ referenceRange> </observation> </component> <component> <observation moodCode="EVN" classCode="OBS"> <templateId root= "216.840.1.642975.10.2022.4.2" /> <id nullFlavor="NA" /> < code codeSystem="local" code="HCT" displayName="HCT" /> <statusCode code="completed" /> <effectiveTime value="039771202796" /> < value unit="%" xsi:type="PQ" value="43.5" /> <referenceRange> <observationRange> <text>42.0-52.0</text> </ observationRange> </referenceRange> </observation> </ component> <component> <observation moodCode="EVN" classCode="OBS"> <templateId root="216.840.1.729861.10.20.22.4.2" /> <id nullFlavor="NA" /> <code codeSystem="local" code="HGB" displayName="HGB " /> <statusCode code="completed" /> <effectiveTime value= "455919268498" /> <value unit="g/dL" xsi:type="PQ" value="14.4" /> <referenceRange> <observationRange> <text>14.0- 18.0</text> </observationRange> </referenceRange> </ observation> </component> <component> <observation moodCode= "EVN" classCode="OBS"> <templateId root="10.29.840.1.215971.10...4.2 " /> <id nullFlavor="NA" /> <code codeSystem="local" code= "IMGA" displayName="Immature Granulocytes" /> <statusCode code= "completed" /> <effectiveTime value="631816500322" /> <value unit="%" xsi:type="PQ" value="0.2" /> <referenceRange> < observationRange> <text>0.0-1.0</text> </ observationRange> </referenceRange> </observation> </ component> <component> <observation moodCode="EVN" classCode="OBS"> <templateId root="216.840.1.058939.10.20.22.4.2" /> <id nullFlavor="NA" /> <code codeSystem="local" code="LYMPR" displayName= "Lymphocytes" /> <statusCode code="completed" /> < effectiveTime value="359698230242" /> <value unit="%" xsi:type="PQ " value="18" /> <interpretationCode codeSystem="local" code="*" /> <referenceRange> <observationRange> <text>20-46</ text> </observationRange> </referenceRange> </ observation> </component> <component> <observation moodCode= "EVN" classCode="OBS"> <templateId root="16.840.1.374748.10.20.22.4.2 " /> <id nullFlavor="NA" /> <code codeSystem="local" code="MCH " displayName="MCH" /> <statusCode code="completed" /> < effectiveTime value="616635403733" /> <value unit="pg" xsi:type="PQ" value="28.6" /> <referenceRange> <observationRange> <text>27.0-32.0</text> </observationRange> </ referenceRange> </observation> </component> <component> <observation moodCode="EVN" classCode="OBS"> <templateId root= "10.29.840.1.041387.10..22.4.2" /> <id nullFlavor="NA" /> < code codeSystem="local" code="MCHC" displayName="MCHC" /> <statusCode code="completed" /> <effectiveTime value="657193829797" /> < value unit="g/dL" xsi:type="PQ" value="33.1" /> <referenceRange> <observationRange> <text>32.0-36.0</text> </ observationRange> </referenceRange> </observation> </ component> <component> <observation moodCode="EVN" classCode="OBS"> <templateId root="2.16.840.1.731343.10..22.4.2" /> <id nullFlavor="NA" /> <code codeSystem="local" code="MCV" displayName="MCV " /> <statusCode code="completed" /> <effectiveTime value= "222381821782" /> <value unit="fL" xsi:type="PQ" value="86.3" /> <referenceRange> <observationRange> <text>82.0-99.0< /text> </observationRange> </referenceRange> </ observation> </component> <component> <observation moodCode= "EVN" classCode="OBS"> <templateId root="16.840.1.523631.10..4.2 " /> <id nullFlavor="NA" /> <code codeSystem="local" code= "MONOR" displayName="Monocytes" /> <statusCode code="completed" /> <effectiveTime value="075128133228" /> <value unit="%" xsi: type="PQ" value="8" /> <referenceRange> <observationRange> <text>4-11</text> </observationRange> </ referenceRange> </observation> </component> <component> <observation moodCode="EVN" classCode="OBS"> <templateId root= "10.29.840.1.082203.1022.4.2" /> <id nullFlavor="NA" /> < code codeSystem="local" code="MPV" displayName="MPV" /> <statusCode code="completed" /> <effectiveTime value="386993219584" /> < value unit="fL" xsi:type="PQ" value="11.0" /> <referenceRange> <observationRange> <text>9.4-12.3</text> </ observationRange> </referenceRange> </observation> </ component> <component> <observation moodCode="EVN" classCode="OBS"> <templateId root="216.840.1.916309.10..4.2" /> <id nullFlavor="NA" /> <code codeSystem="local" code="SEGR" displayName= "Neutrophils" /> <statusCode code="completed" /> < effectiveTime value="" /> <value unit="%" xsi:type="PQ " value="70" /> <referenceRange> <observationRange> <text>51-75</text> </observationRange> </ referenceRange> </observation> </component> <component> <observation moodCode="EVN" classCode="OBS"> <templateId root= "216.840.1.116386.07.02.22.4.2" /> <id nullFlavor="NA" /> < code codeSystem="local" code="NRBCA" displayName="Nucleated RBC Automated" /> <statusCode code="completed" /> <effectiveTime value= "" /> <value unit="/100WBC" xsi:type="PQ" value="0.0" /> <referenceRange> <observationRange> <text /> </observationRange> </referenceRange> </observation> </component> <component> <observation moodCode="EVN" classCode= "OBS"> <templateId root="16.840.1.828015.10..4.2" /> < id nullFlavor="NA" /> <code codeSystem="local" code="PLT" displayName= "Platelet Count" /> <statusCode code="completed" /> < effectiveTime value="865722525566" /> <value unit="K/uL" xsi:type="PQ" value="199" /> <referenceRange> <observationRange> <text>150-400</text> </observationRange> </ referenceRange> </observation> </component> <component> <observation moodCode="EVN" classCode="OBS"> <templateId root= "16.840.1.437596.10..22.4.2" /> <id nullFlavor="NA" /> < code codeSystem="local" code="RBC" displayName="RBC" /> <statusCode code="completed" /> <effectiveTime value="281851462344" /> < value unit="10*6/uL" xsi:type="PQ" value="5.04" /> <referenceRange> <observationRange> <text>4.60-6.20</text> </ observationRange> </referenceRange> </observation> </ component> <component> <observation moodCode="EVN" classCode="OBS"> <templateId root="10.29.840.1.150355.07.02.22.4.2" /> <id nullFlavor="NA" /> <code codeSystem="local" code="RDW" displayName="RDW " /> <statusCode code="completed" /> <effectiveTime value= "384094770531" /> <value unit="%" xsi:type="PQ" value="13.7" /> <referenceRange> <observationRange> <text>11.5- 14.5</text> </observationRange> </referenceRange> </ observation> </component> <component> <observation moodCode= "EVN" classCode="OBS"> <templateId root="10.29.840.1.396314...4.2 " /> <id nullFlavor="NA" /> <code codeSystem="local" code= "WBCIR" displayName="WBC" /> <statusCode code="completed" /> < effectiveTime value="146855406356" /> <value unit="K/uL" xsi:type="PQ" value="8.5" /> <referenceRange> <observationRange> <text>4.8-10.8</text> </observationRange> </ referenceRange> </observation> </component> </organizer> </entry > <entry> <organizer moodCode="EVN" classCode="BATTERY"> <templateId root="16.840.1.297233.10..22.4.1" /> <id nullFlavor="NA" /> <code codeSystem="local" code="CMP" displayName="Comprehensive Metabolic Panel (CMP)" /> <statusCode code="completed" /> <component> <observation moodCode="EVN" classCode="OBS"> <templateId root= "16.840.1.327677.10..22.4.2" /> <id nullFlavor="NA" /> < code codeSystem="local" code="ALB" displayName="Albumin" /> < statusCode code="completed" /> <effectiveTime value="716897781852" /> <value unit="g/dL" xsi:type="PQ" value="3.7" /> < referenceRange> <observationRange> <text>3.5-4.8</text> </observationRange> </referenceRange> </observation > </component> <component> <observation moodCode="EVN" classCode="OBS"> <templateId root="16.840.1.540665.10..22.4.2" /> <id nullFlavor="NA" /> <code codeSystem="local" code="ALP" displayName="Alkaline Phosphatase" /> <statusCode code="completed" /> <effectiveTime value="703148568332" /> <value unit="U/L" xsi: type="PQ" value="67" /> <referenceRange> <observationRange> <text>26-104</text> </observationRange> </ referenceRange> </observation> </component> <component> <observation moodCode="EVN" classCode="OBS"> <templateId root= "16.840.1.948573.10...4.2" /> <id nullFlavor="NA" /> < code codeSystem="local" code="ALT" displayName="ALT (SGPT)" /> < statusCode code="completed" /> <effectiveTime value="722360318769" /> <value unit="U/L" xsi:type="PQ" value="22" /> <referenceRange > <observationRange> <text>17-63</text> </ observationRange> </referenceRange> </observation> </ component> <component> <observation moodCode="EVN" classCode="OBS"> <templateId root="10.29.840.1.637951.10..4.2" /> <id nullFlavor="NA" /> <code codeSystem="local" code="AGAP" displayName= "Anion Gap" /> <statusCode code="completed" /> <effectiveTime value="168008858480" /> <value unit="mEq/L" xsi:type="PQ" value="7" /> <referenceRange> <observationRange> <text>3-20 </text> </observationRange> </referenceRange> </ observation> </component> <component> <observation moodCode= "EVN" classCode="OBS"> <templateId root="10.29.840.1.158806.10..4.2 " /> <id nullFlavor="NA" /> <code codeSystem="local" code="AST " displayName="AST (SGOT)" /> <statusCode code="completed" /> <effectiveTime value="511353415694" /> <value unit="U/L" xsi:type="PQ" value="20" /> <referenceRange> <observationRange> <text>15-41</text> </observationRange> </referenceRange > </observation> </component> <component> <observation moodCode="EVN" classCode="OBS"> <templateId root= "216.840.1.669797.10.22.4.2" /> <id nullFlavor="NA" /> < code codeSystem="local" code="BILIT" displayName="Bilirubin Total" /> < statusCode code="completed" /> <effectiveTime value="329157292020" /> <value unit="mg/dL" xsi:type="PQ" value="0.6" /> < referenceRange> <observationRange> <text>0.2-1.2</text> </observationRange> </referenceRange> </observation > </component> <component> <observation moodCode="EVN" classCode="OBS"> <templateId root="10.29.840.1.126196.10...4.2" /> <id nullFlavor="NA" /> <code codeSystem="local" code="BUN" displayName="BUN" /> <statusCode code="completed" /> < effectiveTime value="017160480002" /> <value unit="mg/dL" xsi:type="PQ " value="28" /> <interpretationCode codeSystem="local" code="*" /> <referenceRange> <observationRange> <text>4-20</ text> </observationRange> </referenceRange> </ observation> </component> <component> <observation moodCode= "EVN" classCode="OBS"> <templateId root="216.840.1.169710...4.2 " /> <id nullFlavor="NA" /> <code codeSystem="local" code="CA " displayName="Calcium" /> <statusCode code="completed" /> < effectiveTime value="253062541838" /> <value unit="mg/dL" xsi:type="PQ " value="9.2" /> <referenceRange> <observationRange> <text>8.6-10.0</text> </observationRange> </ referenceRange> </observation> </component> <component> <observation moodCode="EVN" classCode="OBS"> <templateId root= "2.16.840.1.276678.07.02.22.4.2" /> <id nullFlavor="NA" /> < code codeSystem="local" code="CL" displayName="Chloride" /> < statusCode code="completed" /> <effectiveTime value="915450660448" /> <value unit="mEq/L" xsi:type="PQ" value="104" /> < referenceRange> <observationRange> <text>99-109</text> </observationRange> </referenceRange> </observation> </component> <component> <observation moodCode="EVN" classCode ="OBS"> <templateId root="2.16.840.1.481958.10..4.2" /> < id nullFlavor="NA" /> <code codeSystem="local" code="CO2" displayName= "CO2" /> <statusCode code="completed" /> <effectiveTime value= "802635559048" /> <value unit="mEq/L" xsi:type="PQ" value="26" /> <referenceRange> <observationRange> <text>22-32</ text> </observationRange> </referenceRange> </ observation> </component> <component> <observation moodCode= "EVN" classCode="OBS"> <templateId root="16.840.1.631986.10.2022.4.2 " /> <id nullFlavor="NA" /> <code codeSystem="local" code= "CREAT" displayName="Creatinine" /> <statusCode code="completed" /> <effectiveTime value="867113879637" /> <value unit="mg/dL" xsi: type="PQ" value="1.14" /> <referenceRange> <observationRange > <text>0.64-1.27</text> </observationRange> </ referenceRange> </observation> </component> <component> <observation moodCode="EVN" classCode="OBS"> <templateId root= "10.29.840.1.939032.22.4.2" /> <id nullFlavor="NA" /> < code codeSystem="local" code="GLOB" displayName="Globulin" /> < statusCode code="completed" /> <effectiveTime value="946075666236" /> <value unit="g/dL" xsi:type="PQ" value="2.5" /> < referenceRange> <observationRange> <text>1.9-4.3</text> </observationRange> </referenceRange> </observation > </component> <component> <observation moodCode="EVN" classCode="OBS"> <templateId root="10.29.840.1.981641.10.22.4.2" /> <id nullFlavor="NA" /> <code codeSystem="local" code="GLU" displayName="Glucose" /> <statusCode code="completed" /> < effectiveTime value="587057916543" /> <value unit="mg/dL" xsi:type="PQ " value="110" /> <interpretationCode codeSystem="local" code="*" /> <referenceRange> <observationRange> <text>70-100< /text> </observationRange> </referenceRange> </ observation> </component> <component> <observation moodCode= "EVN" classCode="OBS"> <templateId root="10.29.840.1.734651.10...4.2 " /> <id nullFlavor="NA" /> <code codeSystem="local" code="K" displayName="Potassium" /> <statusCode code="completed" /> < effectiveTime value="831781740921" /> <value unit="mEq/L" xsi:type="PQ " value="4.4" /> <referenceRange> <observationRange> <text>3.6-5.1</text> </observationRange> </ referenceRange> </observation> </component> <component> <observation moodCode="EVN" classCode="OBS"> <templateId root= "840.1.557509.10.4.2" /> <id nullFlavor="NA" /> < code codeSystem="local" code="TP" displayName="Protein" /> <statusCode code="completed" /> <effectiveTime value="796754837175" /> < value unit="g/dL" xsi:type="PQ" value="6.2" /> <referenceRange> <observationRange> <text>6.1-7.9</text> </ observationRange> </referenceRange> </observation> </ component> <component> <observation moodCode="EVN" classCode="OBS"> <templateId root="10.29.840.1.561278.10..4.2" /> <id nullFlavor="NA" /> <code codeSystem="local" code="NA" displayName= "Sodium" /> <statusCode code="completed" /> <effectiveTime value="362506335227" /> <value unit="mEq/L" xsi:type="PQ" value="137" / > <referenceRange> <observationRange> <text>136 -144</text> </observationRange> </referenceRange> </ observation> </component> </organizer> </entry> <entry> <organizer moodCode="EVN" classCode="BATTERY"> <templateId root= "10.29.840.1.247572.22.4.1" /> <id nullFlavor="NA" /> <code codeSystem="local" code="GFR" displayName="eGFR" /> <statusCode code= "completed" /> <component> <observation moodCode="EVN" classCode= "OBS"> <templateId root="10.29.840.1.032483.07.02.22.4.2" /> < id nullFlavor="NA" /> <code codeSystem="local" code="GFR" displayName= "eGFR" /> <statusCode code="completed" /> <effectiveTime value ="109970474541" /> <value unit="mL/min" xsi:type="PQ" value=">60" / > <referenceRange> <observationRange> <text>&gt ;60</text> </observationRange> </referenceRange> </ observation> </component> </organizer> </entry> <entry> <organizer moodCode="EVN" classCode="BATTERY"> <templateId root= "10.29.840.1.169010.22.4.1" /> <id nullFlavor="NA" /> <code codeSystem="local" code="UMIC" displayName="Urine Microscopic" /> < statusCode code="completed" /> <component> <observation moodCode= "EVN" classCode="OBS"> <templateId root="10.29.840.1.343401.07.02.22.4.2 " /> <id nullFlavor="NA" /> <code codeSystem="local" code= "UBAC" displayName="Bacteria" /> <statusCode code="completed" /> <effectiveTime value="" /> <value unit="NA" xsi:type= "PQ" value="None Seen" /> <referenceRange> <observationRange > <text /> </observationRange> </referenceRange > </observation> </component> <component> <observation moodCode="EVN" classCode="OBS"> <templateId root= "16.840.1.542835.10...4.2" /> <id nullFlavor="NA" /> < code codeSystem="local" code="UEPI" displayName="Epithelial Cells" /> < statusCode code="completed" /> <effectiveTime value="" /> <value unit="/HPF" xsi:type="PQ" value="0" /> <referenceRange > <observationRange> <text /> </ observationRange> </referenceRange> </observation> </ component> <component> <observation moodCode="EVN" classCode="OBS"> <templateId root="16.840.1.322528.10..22.4.2" /> <id nullFlavor="NA" /> <code codeSystem="local" code="URBC" displayName= "RBC, Urine" /> <statusCode code="completed" /> < effectiveTime value="" /> <value unit="/HPF" xsi:type="PQ" value="0" /> <referenceRange> <observationRange> <text>0-2</text> </observationRange> </referenceRange> </observation> </component> <component> <observation moodCode="EVN" classCode="OBS"> <templateId root= "840.1.522460.07.02.22.4.2" /> <id nullFlavor="NA" /> < code codeSystem="local" code="UMUC" displayName="Urine Mucus" /> < statusCode code="completed" /> <effectiveTime value="" /> <value unit="NA" xsi:type="PQ" value="Present" /> < referenceRange> <observationRange> <text /> < /observationRange> </referenceRange> </observation> </ component> <component> <observation moodCode="EVN" classCode="OBS"> <templateId root="840.1.095107.07.02.22.4.2" /> <id nullFlavor="NA" /> <code codeSystem="local" code="UWBC" displayName= "WBC, Urine" /> <statusCode code="completed" /> < effectiveTime value="" /> <value unit="/HPF" xsi:type="PQ" value="0" /> <referenceRange> <observationRange> <text>0-4</text> </observationRange> </referenceRange> </observation> </component> </organizer> </entry> <entry> < organizer moodCode="EVN" classCode="BATTERY"> <templateId root= "840.1.877501.07.02.22.4.1" /> <id nullFlavor="NA" /> <code codeSystem="local" code="UA" displayName="Urinalysis with reflex microscopic" / > <statusCode code="completed" /> <component> <observation moodCode="EVN" classCode="OBS"> <templateId root= "840.1.983403.22.4.2" /> <id nullFlavor="NA" /> < code codeSystem="local" code="UAPP" displayName="Appearance" /> < statusCode code="completed" /> <effectiveTime value="" /> <value unit="NA" xsi:type="PQ" value="Sl Cloudy" /> < referenceRange> <observationRange> <text /> < /observationRange> </referenceRange> </observation> </ component> <component> <observation moodCode="EVN" classCode="OBS"> <templateId root="16.840.1.139133.07.02.22.4.2" /> <id nullFlavor="NA" /> <code codeSystem="local" code="UBIL" displayName= "Bilirubin" /> <statusCode code="completed" /> <effectiveTime value="" /> <value unit="NA" xsi:type="PQ" value="Negative " /> <referenceRange> <observationRange> <text> Negative</text> </observationRange> </referenceRange> </observation> </component> <component> <observation moodCode ="EVN" classCode="OBS"> <templateId root= "10.29.840.1.526888.07.02.22.4.2" /> <id nullFlavor="NA" /> < code codeSystem="local" code="UBLD" displayName="Blood" /> <statusCode code="completed" /> <effectiveTime value="" /> < value unit="NA" xsi:type="PQ" value="Negative" /> <referenceRange> <observationRange> <text>Negative</text> </ observationRange> </referenceRange> </observation> </ component> <component> <observation moodCode="EVN" classCode="OBS"> <templateId root="10.29.840.1.638086.07.02.22.4.2" /> <id nullFlavor="NA" /> <code codeSystem="local" code="UCOLR" displayName= "Color" /> <statusCode code="completed" /> <effectiveTime value="" /> <value unit="NA" xsi:type="PQ" value="Yellow" / > <referenceRange> <observationRange> <text /> </observationRange> </referenceRange> </observation > </component> <component> <observation moodCode="EVN" classCode="OBS"> <templateId root="10.29.840.1.041425.10.4.2" /> <id nullFlavor="NA" /> <code codeSystem="local" code="UGLU" displayName="Glucose, Urine" /> <statusCode code="completed" /> <effectiveTime value="" /> <value unit="" xsi:type="PQ" value="Negative" /> <referenceRange> <observationRange> <text>Negative</text> </observationRange> </ referenceRange> </observation> </component> <component> <observation moodCode="EVN" classCode="OBS"> <templateId root= "840.1.030104.07.02.22.4.2" /> <id nullFlavor="NA" /> < code codeSystem="local" code="UKET" displayName="Ketones" /> < statusCode code="completed" /> <effectiveTime value="" /> <value unit="" xsi:type="PQ" value="Negative" /> < referenceRange> <observationRange> <text>Negative</text > </observationRange> </referenceRange> </observation > </component> <component> <observation moodCode="EVN" classCode="OBS"> <templateId root="10.29.840.1.370619.1022.4.2" /> <id nullFlavor="NA" /> <code codeSystem="local" code="ULEU" displayName="Leukocyte Esterase" /> <statusCode code="completed" /> <effectiveTime value="" /> <value unit="NA" xsi:type ="PQ" value="Trace" /> <interpretationCode codeSystem="local" code="*" /> <referenceRange> <observationRange> <text> Negative</text> </observationRange> </referenceRange> </observation> </component> <component> <observation moodCode ="EVN" classCode="OBS"> <templateId root= "216.840.1.403531.10..22.4.2" /> <id nullFlavor="NA" /> < code codeSystem="local" code="UNIT" displayName="Nitrites" /> < statusCode code="completed" /> <effectiveTime value="" /> <value unit="NA" xsi:type="PQ" value="Negative" /> < referenceRange> <observationRange> <text>Negative</text > </observationRange> </referenceRange> </observation > </component> <component> <observation moodCode="EVN" classCode="OBS"> <templateId root="16.840.1.589683.10..22.4.2" /> <id nullFlavor="NA" /> <code codeSystem="local" code="UPH" displayName="pH" /> <statusCode code="completed" /> < effectiveTime value="" /> <value unit="NA" xsi:type="PQ" value="6.0" /> <referenceRange> <observationRange> <text>5.0-8.0</text> </observationRange> </ referenceRange> </observation> </component> <component> <observation moodCode="EVN" classCode="OBS"> <templateId root= "16.840.1.928487.10..22.4.2" /> <id nullFlavor="NA" /> < code codeSystem="local" code="UPRO" displayName="Protein" /> < statusCode code="completed" /> <effectiveTime value="" /> <value unit="NA" xsi:type="PQ" value="Negative" /> < referenceRange> <observationRange> <text>Negative</text > </observationRange> </referenceRange> </observation > </component> <component> <observation moodCode="EVN" classCode="OBS"> <templateId root="2.16.840.1.090259.07.02.22.4.2" /> <id nullFlavor="NA" /> <code codeSystem="local" code="USPG" displayName="Specific [place]" /> <statusCode code="completed" /> <effectiveTime value="" /> <value unit="NA" xsi:type= "PQ" value="1.020" /> <referenceRange> <observationRange> <text>1.003-1.030</text> </observationRange> </ referenceRange> </observation> </component> <component> <observation moodCode="EVN" classCode="OBS"> <templateId root= "216.840.1.749520.07.02.22.4.2" /> <id nullFlavor="NA" /> < code codeSystem="local" code="UTYP" displayName="UA Collection type" /> <statusCode code="completed" /> <effectiveTime value="" / > <value unit="NA" xsi:type="PQ" value="Clean Catch" /> < referenceRange> <observationRange> <text /> < /observationRange> </referenceRange> </observation> </ component> <component> <observation moodCode="EVN" classCode="OBS"> <templateId root="216.840.1.304892.10.20.22.4.2" /> <id nullFlavor="NA" /> <code codeSystem="local" code="UURO" displayName= "Urobilinogen" /> <statusCode code="completed" /> < effectiveTime value="[id number]" /> <value unit="mg/dL" xsi:type="PQ " value="Negative" /> <referenceRange> <observationRange> <text><1.0</text> </observationRange> </ referenceRange> </observation> </component> </organizer> </entry > <entry> <organizer moodCode="EVN" classCode="BATTERY"> <templateId root="2.16.840.1.029263.10.20.22.4.1" /> <id nullFlavor="NA" /> <code codeSystem="local" code="VALP" displayName="Valproic Acid" /> <statusCode code="completed" /> <component> <observation moodCode="EVN" classCode="OBS"> <templateId root="2.16.840.1.880431.10.20.22.4.2" /> <id nullFlavor="NA" /> <code codeSystem="local" code="VALP" displayName="Valproic Acid" /> <statusCode code="completed" /> <effectiveTime value="[id number]" /> <value unit="ug/mL" xsi:type= "PQ" value="51" /> <referenceRange> <observationRange> <text>50-125</text> </observationRange> </ referenceRange> </observation> </component> </organizer> </entry > <entry> <organizer moodCode="EVN" classCode="BATTERY"> <templateId root="10.29.840.1.487879.10..22.4.1" /> <id nullFlavor="NA" /> <code codeSystem="local" code="AMMOV" displayName="Ammonia" /> <statusCode code= "completed" /> <component> <observation moodCode="EVN" classCode= "OBS"> <templateId root="840.1.997313.07.02.22.4.2" /> < id nullFlavor="NA" /> <code codeSystem="local" code="AMMOV" displayName ="Ammonia" /> <statusCode code="completed" /> <effectiveTime value="" /> <value unit="umol/L" xsi:type="PQ" value="32" / > <referenceRange> <observationRange> <text>9- 35</text> </observationRange> </referenceRange> </ observation> </component> </organizer> </entry> <entry> <organizer moodCode="EVN" classCode="BATTERY"> <templateId root= "840.1.519895.07.02.22.4.1" /> <id nullFlavor="NA" /> <code codeSystem="local" code="VALP" displayName="Valproic Acid" /> <statusCode code="completed" /> <component> <observation moodCode="EVN" classCode="OBS"> <templateId root="10.29.840.1.302496.10..4.2" /> <id nullFlavor="NA" /> <code codeSystem="local" code="VALP" displayName="Valproic Acid" /> <statusCode code="completed" /> <effectiveTime value="[id number]" /> <value unit="ug/mL" xsi:type= "PQ" value="71" /> <referenceRange> <observationRange> <text>50-125</text> </observationRange> </ referenceRange> </observation> </component> </organizer> </entry > <entry> <organizer moodCode="EVN" classCode="BATTERY"> <templateId root="16.840.1.177429.10..22.4.1" /> <id nullFlavor="NA" /> <code codeSystem="local" code="B12" displayName="Vitamin B12" /> <statusCode code ="completed" /> <component> <observation moodCode="EVN" classCode= "OBS"> <templateId root="840.1.825456.07.02.22.4.2" /> < id nullFlavor="NA" /> <code codeSystem="local" code="B12" displayName= "Vitamin B12" /> <statusCode code="completed" /> < effectiveTime value="[id number]" /> <value unit="pg/mL" xsi:type="PQ " value="449" /> <referenceRange> <observationRange> <text>213-816</text> </observationRange> </ referenceRange> </observation> </component> </organizer> </entry > <entry> <organizer moodCode="EVN" classCode="BATTERY"> <templateId root="10.29.840.1.767620.07.02.22.4.1" /> <id nullFlavor="NA" /> <code codeSystem="local" code="UA" displayName="Urinalysis with reflex microscopic" / > <statusCode code="completed" /> <component> <observation moodCode="EVN" classCode="OBS"> <templateId root= "16.840.1.514102.10.22.4.2" /> <id nullFlavor="NA" /> < code codeSystem="local" code="UAPP" displayName="Appearance" /> < statusCode code="completed" /> <effectiveTime value="" /> <value unit="NA" xsi:type="PQ" value="Clear" /> < referenceRange> <observationRange> <text /> < /observationRange> </referenceRange> </observation> </ component> <component> <observation moodCode="EVN" classCode="OBS"> <templateId root="10.29.840.1.422571.07.02.22.4.2" /> <id nullFlavor="NA" /> <code codeSystem="local" code="UBIL" displayName= "Bilirubin" /> <statusCode code="completed" /> <effectiveTime value="" /> <value unit="NA" xsi:type="PQ" value="Negative " /> <referenceRange> <observationRange> <text> Negative</text> </observationRange> </referenceRange> </observation> </component> <component> <observation moodCode ="EVN" classCode="OBS"> <templateId root= "10.29.840.1.177441.07.02.22.4.2" /> <id nullFlavor="NA" /> < code codeSystem="local" code="UBLD" displayName="Blood" /> <statusCode code="completed" /> <effectiveTime value="" /> < value unit="NA" xsi:type="PQ" value="Negative" /> <referenceRange> <observationRange> <text>Negative</text> </ observationRange> </referenceRange> </observation> </ component> <component> <observation moodCode="EVN" classCode="OBS"> <templateId root="10.29.840.1.045441.07.02.22.4.2" /> <id nullFlavor="NA" /> <code codeSystem="local" code="UCOLR" displayName= "Color" /> <statusCode code="completed" /> <effectiveTime value="" /> <value unit="NA" xsi:type="PQ" value="Yellow" / > <referenceRange> <observationRange> <text /> </observationRange> </referenceRange> </observation > </component> <component> <observation moodCode="EVN" classCode="OBS"> <templateId root="10.29.840.1.565652.07.02.22.4.2" /> <id nullFlavor="NA" /> <code codeSystem="local" code="UGLU" displayName="Glucose, Urine" /> <statusCode code="completed" /> <effectiveTime value="" /> <value unit="" xsi:type="PQ" value="Negative" /> <referenceRange> <observationRange> <text>Negative</text> </observationRange> </ referenceRange> </observation> </component> <component> <observation moodCode="EVN" classCode="OBS"> <templateId root= "10.29.840.1.839500.07.02.22.4.2" /> <id nullFlavor="NA" /> < code codeSystem="local" code="UKET" displayName="Ketones" /> < statusCode code="completed" /> <effectiveTime value="" /> <value unit="" xsi:type="PQ" value="Trace" /> < interpretationCode codeSystem="local" code="*" /> <referenceRange> <observationRange> <text>Negative</text> </ observationRange> </referenceRange> </observation> </ component> <component> <observation moodCode="EVN" classCode="OBS"> <templateId root="10.29.840.1.935860.22.4.2" /> <id nullFlavor="NA" /> <code codeSystem="local" code="ULEU" displayName= "Leukocyte Esterase" /> <statusCode code="completed" /> < effectiveTime value="" /> <value unit="NA" xsi:type="PQ" value="Negative" /> <referenceRange> <observationRange> <text>Negative</text> </observationRange> </ referenceRange> </observation> </component> <component> <observation moodCode="EVN" classCode="OBS"> <templateId root= "216.840.1.622126.07.02.22.4.2" /> <id nullFlavor="NA" /> < code codeSystem="local" code="UNIT" displayName="Nitrites" /> < statusCode code="completed" /> <effectiveTime value="" /> <value unit="NA" xsi:type="PQ" value="Negative" /> < referenceRange> <observationRange> <text>Negative</text > </observationRange> </referenceRange> </observation > </component> <component> <observation moodCode="EVN" classCode="OBS"> <templateId root="216.840.1.987543.10...4.2" /> <id nullFlavor="NA" /> <code codeSystem="local" code="UPH" displayName="pH" /> <statusCode code="completed" /> < effectiveTime value="" /> <value unit="NA" xsi:type="PQ" value="6.0" /> <referenceRange> <observationRange> <text>5.0-8.0</text> </observationRange> </ referenceRange> </observation> </component> <component> <observation moodCode="EVN" classCode="OBS"> <templateId root= "16.840.1.642645.1022.4.2" /> <id nullFlavor="NA" /> < code codeSystem="local" code="UPRO" displayName="Protein" /> < statusCode code="completed" /> <effectiveTime value="" /> <value unit="NA" xsi:type="PQ" value="Negative" /> < referenceRange> <observationRange> <text>Negative</text > </observationRange> </referenceRange> </observation > </component> <component> <observation moodCode="EVN" classCode="OBS"> <templateId root="16.840.1.104340.07.02.22.4.2" /> <id nullFlavor="NA" /> <code codeSystem="local" code="USPG" displayName="Specific [place]" /> <statusCode code="completed" /> <effectiveTime value="143331749038" /> <value unit="NA" xsi:type= "PQ" value="1.030" /> <referenceRange> <observationRange> <text>1.003-1.030</text> </observationRange> </ referenceRange> </observation> </component> <component> <observation moodCode="EVN" classCode="OBS"> <templateId root= "10.29.840.1.173409.10.4.2" /> <id nullFlavor="NA" /> < code codeSystem="local" code="UTYP" displayName="UA Collection type" /> <statusCode code="completed" /> <effectiveTime value="756732282210" / > <value unit="NA" xsi:type="PQ" value="Clean Catch" /> < referenceRange> <observationRange> <text /> < /observationRange> </referenceRange> </observation> </ component> <component> <observation moodCode="EVN" classCode="OBS"> <templateId root="216.840.1.997992.10..22.4.2" /> <id nullFlavor="NA" /> <code codeSystem="local" code="UURO" displayName= "Urobilinogen" /> <statusCode code="completed" /> < effectiveTime value="128390130796" /> <value unit="mg/dL" xsi:type="PQ " value="Negative" /> <referenceRange> <observationRange> <text><1.0</text> </observationRange> </ referenceRange> </observation> </component> </organizer> </entry > <entry> <organizer moodCode="EVN" classCode="BATTERY"> <templateId root="216.840.1.620651.10..22.4.1" /> <id nullFlavor="NA" /> <code codeSystem="local" code="CBCND" displayName="CBC With Platelet No Differential" /> <statusCode code="completed" /> <component> <observation moodCode="EVN" classCode="OBS"> <templateId root= "216.840.1.032396.10..22.4.2" /> <id nullFlavor="NA" /> < code codeSystem="local" code="HCT" displayName="HCT" /> <statusCode code="completed" /> <effectiveTime value="280329189214" /> < value unit="%" xsi:type="PQ" value="43.4" /> <referenceRange> <observationRange> <text>42.0-52.0</text> </ observationRange> </referenceRange> </observation> </ component> <component> <observation moodCode="EVN" classCode="OBS"> <templateId root="2.16.840.1.868594.10..22.4.2" /> <id nullFlavor="NA" /> <code codeSystem="local" code="HGB" displayName="HGB " /> <statusCode code="completed" /> <effectiveTime value= "" /> <value unit="g/dL" xsi:type="PQ" value="14.2" /> <referenceRange> <observationRange> <text>14.0- 18.0</text> </observationRange> </referenceRange> </ observation> </component> <component> <observation moodCode= "EVN" classCode="OBS"> <templateId root="216.840.1.822372.10..4.2 " /> <id nullFlavor="NA" /> <code codeSystem="local" code="MCH " displayName="MCH" /> <statusCode code="completed" /> < effectiveTime value="" /> <value unit="pg" xsi:type="PQ" value="28.3" /> <referenceRange> <observationRange> <text>27.0-32.0</text> </observationRange> </ referenceRange> </observation> </component> <component> <observation moodCode="EVN" classCode="OBS"> <templateId root= "16.840.1.852423.10.22.4.2" /> <id nullFlavor="NA" /> < code codeSystem="local" code="MCHC" displayName="MCHC" /> <statusCode code="completed" /> <effectiveTime value="" /> < value unit="g/dL" xsi:type="PQ" value="32.7" /> <referenceRange> <observationRange> <text>32.0-36.0</text> </ observationRange> </referenceRange> </observation> </ component> <component> <observation moodCode="EVN" classCode="OBS"> <templateId root="16.840.1.418106.1022.4.2" /> <id nullFlavor="NA" /> <code codeSystem="local" code="MCV" displayName="MCV " /> <statusCode code="completed" /> <effectiveTime value= "" /> <value unit="fL" xsi:type="PQ" value="86.6" /> <referenceRange> <observationRange> <text>82.0-99.0< /text> </observationRange> </referenceRange> </ observation> </component> <component> <observation moodCode= "EVN" classCode="OBS"> <templateId root="10.29.840.1.745953.22.4.2 " /> <id nullFlavor="NA" /> <code codeSystem="local" code="MPV " displayName="MPV" /> <statusCode code="completed" /> < effectiveTime value="" /> <value unit="fL" xsi:type="PQ" value="9.6" /> <referenceRange> <observationRange> <text>9.4-12.3</text> </observationRange> </ referenceRange> </observation> </component> <component> <observation moodCode="EVN" classCode="OBS"> <templateId root= "10.29.840.1.998691.1022.4.2" /> <id nullFlavor="NA" /> < code codeSystem="local" code="PLT" displayName="Platelet Count" /> < statusCode code="completed" /> <effectiveTime value="" /> <value unit="K/uL" xsi:type="PQ" value="213" /> < referenceRange> <observationRange> <text>150-400</text> </observationRange> </referenceRange> </observation > </component> <component> <observation moodCode="EVN" classCode="OBS"> <templateId root="216.840.1.284898.10.20.22.4.2" /> <id nullFlavor="NA" /> <code codeSystem="local" code="RBC" displayName="RBC" /> <statusCode code="completed" /> < effectiveTime value="[id number]" /> <value unit="10*6/uL" xsi:type= "PQ" value="5.01" /> <referenceRange> <observationRange> <text>4.60-6.20</text> </observationRange> </ referenceRange> </observation> </component> <component> <observation moodCode="EVN" classCode="OBS"> <templateId root= "10.29.840.1.116429.10.22.4.2" /> <id nullFlavor="NA" /> < code codeSystem="local" code="RDW" displayName="RDW" /> <statusCode code="completed" /> <effectiveTime value="197518707578" /> < value unit="%" xsi:type="PQ" value="14.2" /> <referenceRange> <observationRange> <text>11.5-14.5</text> </ observationRange> </referenceRange> </observation> </ component> <component> <observation moodCode="EVN" classCode="OBS"> <templateId root="10.29.840.1.158004.10.20.22.4.2" /> <id nullFlavor="NA" /> <code codeSystem="local" code="WBCIR" displayName= "WBC" /> <statusCode code="completed" /> <effectiveTime value= "821714399313" /> <value unit="K/uL" xsi:type="PQ" value="7.0" /> <referenceRange> <observationRange> <text>4.8-10.8< /text> </observationRange> </referenceRange> </ observation> </component> </organizer> </entry> <entry> <organizer moodCode="EVN" classCode="BATTERY"> <templateId root= "16.840.1.878624.10..22.4.1" /> <id nullFlavor="NA" /> <code codeSystem="local" code="AMMOV" displayName="Ammonia" /> <statusCode code= "completed" /> <component> <observation moodCode="EVN" classCode= "OBS"> <templateId root="216.840.1.656649.10..22.4.2" /> < id nullFlavor="NA" /> <code codeSystem="local" code="AMMOV" displayName ="Ammonia" /> <statusCode code="completed" /> <effectiveTime value="093887872892" /> <value unit="umol/L" xsi:type="PQ" value="12" / > <referenceRange> <observationRange> <text>9- 35</text> </observationRange> </referenceRange> </ observation> </component> </organizer> </entry> <entry> <organizer moodCode="EVN" classCode="BATTERY"> <templateId root= "216.840.1.642502.10..22.4.1" /> <id nullFlavor="NA" /> <code codeSystem="local" code="CMP" displayName="Comprehensive Metabolic Panel (CMP)" /> <statusCode code="completed" /> <component> <observation moodCode="EVN" classCode="OBS"> <templateId root= "16.840.1.475907.10..22.4.2" /> <id nullFlavor="NA" /> < code codeSystem="local" code="ALB" displayName="Albumin" /> < statusCode code="completed" /> <effectiveTime value="" /> <value unit="g/dL" xsi:type="PQ" value="3.2" /> < interpretationCode codeSystem="local" code="*" /> <referenceRange> <observationRange> <text>3.5-4.8</text> </ observationRange> </referenceRange> </observation> </ component> <component> <observation moodCode="EVN" classCode="OBS"> <templateId root="16.840.1.750987.10..4.2" /> <id nullFlavor="NA" /> <code codeSystem="local" code="ALP" displayName= "Alkaline Phosphatase" /> <statusCode code="completed" /> < effectiveTime value="" /> <value unit="U/L" xsi:type="PQ" value="54" /> <referenceRange> <observationRange> <text>26-104</text> </observationRange> </referenceRange > </observation> </component> <component> <observation moodCode="EVN" classCode="OBS"> <templateId root= "16.840.1.982815.10.2022.4.2" /> <id nullFlavor="NA" /> < code codeSystem="local" code="ALT" displayName="ALT (SGPT)" /> < statusCode code="completed" /> <effectiveTime value="" /> <value unit="U/L" xsi:type="PQ" value="20" /> <referenceRange > <observationRange> <text>17-63</text> </ observationRange> </referenceRange> </observation> </ component> <component> <observation moodCode="EVN" classCode="OBS"> <templateId root="216.840.1.913547.10...4.2" /> <id nullFlavor="NA" /> <code codeSystem="local" code="AGAP" displayName= "Anion Gap" /> <statusCode code="completed" /> <effectiveTime value="" /> <value unit="mEq/L" xsi:type="PQ" value="8" /> <referenceRange> <observationRange> <text>3-20 </text> </observationRange> </referenceRange> </ observation> </component> <component> <observation moodCode= "EVN" classCode="OBS"> <templateId root="10.29.840.1.361053.07.02.22.4.2 " /> <id nullFlavor="NA" /> <code codeSystem="local" code="AST " displayName="AST (SGOT)" /> <statusCode code="completed" /> <effectiveTime value="" /> <value unit="U/L" xsi:type="PQ" value="18" /> <referenceRange> <observationRange> <text>15-41</text> </observationRange> </referenceRange > </observation> </component> <component> <observation moodCode="EVN" classCode="OBS"> <templateId root= "10.29.840.1.677511....4.2" /> <id nullFlavor="NA" /> < code codeSystem="local" code="BILIT" displayName="Bilirubin Total" /> < statusCode code="completed" /> <effectiveTime value="" /> <value unit="mg/dL" xsi:type="PQ" value="0.3" /> < referenceRange> <observationRange> <text>0.2-1.2</text> </observationRange> </referenceRange> </observation > </component> <component> <observation moodCode="EVN" classCode="OBS"> <templateId root="16.840.1.475261.10..4.2" /> <id nullFlavor="NA" /> <code codeSystem="local" code="BUN" displayName="BUN" /> <statusCode code="completed" /> < effectiveTime value="" /> <value unit="mg/dL" xsi:type="PQ " value="27" /> <interpretationCode codeSystem="local" code="*" /> <referenceRange> <observationRange> <text>4-20</ text> </observationRange> </referenceRange> </ observation> </component> <component> <observation moodCode= "EVN" classCode="OBS"> <templateId root="10.29.840.1.034894.07.02.224.2 " /> <id nullFlavor="NA" /> <code codeSystem="local" code="CA " displayName="Calcium" /> <statusCode code="completed" /> < effectiveTime value="" /> <value unit="mg/dL" xsi:type="PQ " value="9.5" /> <referenceRange> <observationRange> <text>8.6-10.0</text> </observationRange> </ referenceRange> </observation> </component> <component> <observation moodCode="EVN" classCode="OBS"> <templateId root= "10.29.840.1.686050.10.22.4.2" /> <id nullFlavor="NA" /> < code codeSystem="local" code="CL" displayName="Chloride" /> < statusCode code="completed" /> <effectiveTime value="" /> <value unit="mEq/L" xsi:type="PQ" value="104" /> < referenceRange> <observationRange> <text>99-109</text> </observationRange> </referenceRange> </observation> </component> <component> <observation moodCode="EVN" classCode ="OBS"> <templateId root="16.840.1.511885.10.22.4.2" /> < id nullFlavor="NA" /> <code codeSystem="local" code="CO2" displayName= "CO2" /> <statusCode code="completed" /> <effectiveTime value= "" /> <value unit="mEq/L" xsi:type="PQ" value="28" /> <referenceRange> <observationRange> <text>22-32</ text> </observationRange> </referenceRange> </ observation> </component> <component> <observation moodCode= "EVN" classCode="OBS"> <templateId root="10.29.840.1.371086.22.4.2 " /> <id nullFlavor="NA" /> <code codeSystem="local" code= "CREAT" displayName="Creatinine" /> <statusCode code="completed" /> <effectiveTime value="" /> <value unit="mg/dL" xsi: type="PQ" value="1.02" /> <referenceRange> <observationRange > <text>0.64-1.27</text> </observationRange> </ referenceRange> </observation> </component> <component> <observation moodCode="EVN" classCode="OBS"> <templateId root= "10.29.840.1.422078..4.2" /> <id nullFlavor="NA" /> < code codeSystem="local" code="GLOB" displayName="Globulin" /> < statusCode code="completed" /> <effectiveTime value="" /> <value unit="g/dL" xsi:type="PQ" value="3.4" /> < referenceRange> <observationRange> <text>1.9-4.3</text> </observationRange> </referenceRange> </observation > </component> <component> <observation moodCode="EVN" classCode="OBS"> <templateId root="216.840.1.013445.07.02.22.4.2" /> <id nullFlavor="NA" /> <code codeSystem="local" code="GLU" displayName="Glucose" /> <statusCode code="completed" /> < effectiveTime value="" /> <value unit="mg/dL" xsi:type="PQ " value="105" /> <interpretationCode codeSystem="local" code="*" /> <referenceRange> <observationRange> <text>70-100< /text> </observationRange> </referenceRange> </ observation> </component> <component> <observation moodCode= "EVN" classCode="OBS"> <templateId root="216.840.1.682027.22.4.2 " /> <id nullFlavor="NA" /> <code codeSystem="local" code="K" displayName="Potassium" /> <statusCode code="completed" /> < effectiveTime value="" /> <value unit="mEq/L" xsi:type="PQ " value="3.9" /> <referenceRange> <observationRange> <text>3.6-5.1</text> </observationRange> </ referenceRange> </observation> </component> <component> <observation moodCode="EVN" classCode="OBS"> <templateId root= "16.840.1.478603.07.02.22.4.2" /> <id nullFlavor="NA" /> < code codeSystem="local" code="TP" displayName="Protein" /> <statusCode code="completed" /> <effectiveTime value="" /> < value unit="g/dL" xsi:type="PQ" value="6.6" /> <referenceRange> <observationRange> <text>6.1-7.9</text> </ observationRange> </referenceRange> </observation> </ component> <component> <observation moodCode="EVN" classCode="OBS"> <templateId root="10.29.840.1.592650.07.02.22.4.2" /> <id nullFlavor="NA" /> <code codeSystem="local" code="NA" displayName= "Sodium" /> <statusCode code="completed" /> <effectiveTime value="" /> <value unit="mEq/L" xsi:type="PQ" value="140" / > <referenceRange> <observationRange> <text>136 -144</text> </observationRange> </referenceRange> </ observation> </component> </organizer> </entry> <entry> <organizer moodCode="EVN" classCode="BATTERY"> <templateId root= "10.29.840.1.823704.07.02.22.4.1" /> <id nullFlavor="NA" /> <code codeSystem="local" code="GFR" displayName="eGFR" /> <statusCode code= "completed" /> <component> <observation moodCode="EVN" classCode= "OBS"> <templateId root="10.29.840.1.835967.07.02..4.2" /> < id nullFlavor="NA" /> <code codeSystem="local" code="GFR" displayName= "eGFR" /> <statusCode code="completed" /> <effectiveTime value ="[id number]" /> <value unit="mL/min" xsi:type="PQ" value=">60" / > <referenceRange> <observationRange> <text>&gt ;60</text> </observationRange> </referenceRange> </ observation> </component> </organizer> </entry> <entry> <organizer moodCode="EVN" classCode="BATTERY"> <templateId root= "16.840.1.451413....4.1" /> <id nullFlavor="NA" /> <code codeSystem="local" code="CBCND" displayName="CBC With Platelet No Differential" /> <statusCode code="completed" /> <component> <observation moodCode="EVN" classCode="OBS"> <templateId root= "10.29.840.1.539548....4.2" /> <id nullFlavor="NA" /> < code codeSystem="local" code="HCT" displayName="HCT" /> <statusCode code="completed" /> <effectiveTime value="[id number]" /> < value unit="%" xsi:type="PQ" value="42.5" /> <referenceRange> <observationRange> <text>42.0-52.0</text> </ observationRange> </referenceRange> </observation> </ component> <component> <observation moodCode="EVN" classCode="OBS"> <templateId root="10.29.840.1.830273.10...4.2" /> <id nullFlavor="NA" /> <code codeSystem="local" code="HGB" displayName="HGB " /> <statusCode code="completed" /> <effectiveTime value= "" /> <value unit="g/dL" xsi:type="PQ" value="13.8" /> <interpretationCode codeSystem="local" code="*" /> < referenceRange> <observationRange> <text>14.0-18.0</text > </observationRange> </referenceRange> </observation > </component> <component> <observation moodCode="EVN" classCode="OBS"> <templateId root="2.16.840.1.697153.10..22.4.2" /> <id nullFlavor="NA" /> <code codeSystem="local" code="MCH" displayName="MCH" /> <statusCode code="completed" /> < effectiveTime value="" /> <value unit="pg" xsi:type="PQ" value="28.3" /> <referenceRange> <observationRange> <text>27.0-32.0</text> </observationRange> </ referenceRange> </observation> </component> <component> <observation moodCode="EVN" classCode="OBS"> <templateId root= "2.16.840.1.997703.10..22.4.2" /> <id nullFlavor="NA" /> < code codeSystem="local" code="MCHC" displayName="MCHC" /> <statusCode code="completed" /> <effectiveTime value="" /> < value unit="g/dL" xsi:type="PQ" value="32.5" /> <referenceRange> <observationRange> <text>32.0-36.0</text> </ observationRange> </referenceRange> </observation> </ component> <component> <observation moodCode="EVN" classCode="OBS"> <templateId root="10.29.840.1.516097.10.20.22.4.2" /> <id nullFlavor="NA" /> <code codeSystem="local" code="MCV" displayName="MCV " /> <statusCode code="completed" /> <effectiveTime value= "" /> <value unit="fL" xsi:type="PQ" value="87.1" /> <referenceRange> <observationRange> <text>82.0-99.0< /text> </observationRange> </referenceRange> </ observation> </component> <component> <observation moodCode= "EVN" classCode="OBS"> <templateId root="840.1.524025.10.22.4.2 " /> <id nullFlavor="NA" /> <code codeSystem="local" code="MPV " displayName="MPV" /> <statusCode code="completed" /> < effectiveTime value="" /> <value unit="fL" xsi:type="PQ" value="9.6" /> <referenceRange> <observationRange> <text>9.4-12.3</text> </observationRange> </ referenceRange> </observation> </component> <component> <observation moodCode="EVN" classCode="OBS"> <templateId root= "10.29.840.1.919583.10.20.22.4.2" /> <id nullFlavor="NA" /> < code codeSystem="local" code="PLT" displayName="Platelet Count" /> < statusCode code="completed" /> <effectiveTime value="201460712755" /> <value unit="K/uL" xsi:type="PQ" value="147" /> < interpretationCode codeSystem="local" code="*" /> <referenceRange> <observationRange> <text>150-400</text> </ observationRange> </referenceRange> </observation> </ component> <component> <observation moodCode="EVN" classCode="OBS"> <templateId root="16.840.1.471367.10.20.22.4.2" /> <id nullFlavor="NA" /> <code codeSystem="local" code="RBC" displayName="RBC " /> <statusCode code="completed" /> <effectiveTime value= "372498410700" /> <value unit="10*6/uL" xsi:type="PQ" value="4.88" /> <referenceRange> <observationRange> <text>4.60- 6.20</text> </observationRange> </referenceRange> </ observation> </component> <component> <observation moodCode= "EVN" classCode="OBS"> <templateId root="10.29.840.1.526933.10..4.2 " /> <id nullFlavor="NA" /> <code codeSystem="local" code="RDW " displayName="RDW" /> <statusCode code="completed" /> < effectiveTime value="774086135639" /> <value unit="%" xsi:type="PQ " value="14.3" /> <referenceRange> <observationRange> <text>11.5-14.5</text> </observationRange> </ referenceRange> </observation> </component> <component> <observation moodCode="EVN" classCode="OBS"> <templateId root= "10.29.840.1.222826.10.20.22.4.2" /> <id nullFlavor="NA" /> < code codeSystem="local" code="WBCIR" displayName="WBC" /> <statusCode code="completed" /> <effectiveTime value="449888254794" /> < value unit="K/uL" xsi:type="PQ" value="8.5" /> <referenceRange> <observationRange> <text>4.8-10.8</text> </ observationRange> </referenceRange> </observation> </ component> </organizer> </entry> <entry> <organizer moodCode="EVN" classCode="BATTERY"> <templateId root="10.29.840.1.476219.10...4.1" /> <id nullFlavor="NA" /> <code codeSystem="local" code="BMP" displayName ="Basic Metabolic Panel (BMP)" /> <statusCode code="completed" /> < component> <observation moodCode="EVN" classCode="OBS"> < templateId root="10.29.840.1.719907.10...4.2" /> <id nullFlavor="NA " /> <code codeSystem="local" code="AGAP" displayName="Anion Gap" /> <statusCode code="completed" /> <effectiveTime value= "691842850765" /> <value unit="mEq/L" xsi:type="PQ" value="6" /> <referenceRange> <observationRange> <text>3-20</text > </observationRange> </referenceRange> </observation > </component> <component> <observation moodCode="EVN" classCode="OBS"> <templateId root="10.29.840.1.842859.10...4.2" /> <id nullFlavor="NA" /> <code codeSystem="local" code="BUN" displayName="BUN" /> <statusCode code="completed" /> < effectiveTime value="292574256367" /> <value unit="mg/dL" xsi:type="PQ " value="25" /> <interpretationCode codeSystem="local" code="*" /> <referenceRange> <observationRange> <text>4-20</ text> </observationRange> </referenceRange> </ observation> </component> <component> <observation moodCode= "EVN" classCode="OBS"> <templateId root="10.29.840.1.534351.10..4.2 " /> <id nullFlavor="NA" /> <code codeSystem="local" code="CA " displayName="Calcium" /> <statusCode code="completed" /> < effectiveTime value="" /> <value unit="mg/dL" xsi:type="PQ " value="9.3" /> <referenceRange> <observationRange> <text>8.6-10.0</text> </observationRange> </ referenceRange> </observation> </component> <component> <observation moodCode="EVN" classCode="OBS"> <templateId root= "840.1.898831.22.4.2" /> <id nullFlavor="NA" /> < code codeSystem="local" code="CL" displayName="Chloride" /> < statusCode code="completed" /> <effectiveTime value="" /> <value unit="mEq/L" xsi:type="PQ" value="101" /> < referenceRange> <observationRange> <text>99-109</text> </observationRange> </referenceRange> </observation> </component> <component> <observation moodCode="EVN" classCode ="OBS"> <templateId root="10.29.840.1.763708.102022.4.2" /> < id nullFlavor="NA" /> <code codeSystem="local" code="CO2" displayName= "CO2" /> <statusCode code="completed" /> <effectiveTime value= "" /> <value unit="mEq/L" xsi:type="PQ" value="29" /> <referenceRange> <observationRange> <text>22-32</ text> </observationRange> </referenceRange> </ observation> </component> <component> <observation moodCode= "EVN" classCode="OBS"> <templateId root="216.840.1.309828.07.02.22.4.2 " /> <id nullFlavor="NA" /> <code codeSystem="local" code= "CREAT" displayName="Creatinine" /> <statusCode code="completed" /> <effectiveTime value="" /> <value unit="mg/dL" xsi: type="PQ" value="0.99" /> <referenceRange> <observationRange > <text>0.64-1.27</text> </observationRange> </ referenceRange> </observation> </component> <component> <observation moodCode="EVN" classCode="OBS"> <templateId root= "10.29.840.1.823086.07.02.22.4.2" /> <id nullFlavor="NA" /> < code codeSystem="local" code="GLU" displayName="Glucose" /> < statusCode code="completed" /> <effectiveTime value="" /> <value unit="mg/dL" xsi:type="PQ" value="91" /> < referenceRange> <observationRange> <text>70-100</text> </observationRange> </referenceRange> </observation> </component> <component> <observation moodCode="EVN" classCode ="OBS"> <templateId root="16.840.1.869230...4.2" /> < id nullFlavor="NA" /> <code codeSystem="local" code="K" displayName= "Potassium" /> <statusCode code="completed" /> <effectiveTime value="420756357699" /> <value unit="mEq/L" xsi:type="PQ" value="3.7" / > <referenceRange> <observationRange> <text>3.6 -5.1</text> </observationRange> </referenceRange> </ observation> </component> <component> <observation moodCode= "EVN" classCode="OBS"> <templateId root="16.840.1.050164.10..4.2 " /> <id nullFlavor="NA" /> <code codeSystem="local" code="NA " displayName="Sodium" /> <statusCode code="completed" /> < effectiveTime value="719538888990" /> <value unit="mEq/L" xsi:type="PQ " value="136" /> <referenceRange> <observationRange> <text>136-144</text> </observationRange> </ referenceRange> </observation> </component> </organizer> </entry > <entry> <organizer moodCode="EVN" classCode="BATTERY"> <templateId root="16.840.1.538909...4.1" /> <id nullFlavor="NA" /> <code codeSystem="local" code="VALP" displayName="Valproic Acid" /> <statusCode code="completed" /> <component> <observation moodCode="EVN" classCode="OBS"> <templateId root="16.840.1.653928.07.02.22.4.2" /> <id nullFlavor="NA" /> <code codeSystem="local" code="VALP" displayName="Valproic Acid" /> <statusCode code="completed" /> <effectiveTime value="038229559247" /> <value unit="ug/mL" xsi:type= "PQ" value="45" /> <interpretationCode codeSystem="local" code="*" /> <referenceRange> <observationRange> <text>50- 125</text> </observationRange> </referenceRange> </ observation> </component> </organizer> </entry> <entry> <organizer moodCode="EVN" classCode="BATTERY"> <templateId root= "216.840.1.775150.10..22.4.1" /> <id nullFlavor="NA" /> <code codeSystem="local" code="GFR" displayName="eGFR" /> <statusCode code= "completed" /> <component> <observation moodCode="EVN" classCode= "OBS"> <templateId root="216.840.1.405647.10..22.4.2" /> < id nullFlavor="NA" /> <code codeSystem="local" code="GFR" displayName= "eGFR" /> <statusCode code="completed" /> <effectiveTime value ="614648909060" /> <value unit="mL/min" xsi:type="PQ" value=">60" / > <referenceRange> <observationRange> <text>&gt ;60</text> </observationRange> </referenceRange> </ observation> </component> </organizer> </entry> <entry> <organizer moodCode="EVN" classCode="BATTERY"> <templateId root= "216.840.1.566201.10..22.4.1" /> <id nullFlavor="NA" /> <code codeSystem="local" code="VALP" displayName="Valproic Acid" /> <statusCode code="completed" /> <component> <observation moodCode="EVN" classCode="OBS"> <templateId root="2.16.840.1.008030.10.20.22.4.2" /> <id nullFlavor="NA" /> <code codeSystem="local" code="VALP" displayName="Valproic Acid" /> <statusCode code="completed" /> <effectiveTime value="123824099631" /> <value unit="ug/mL" xsi:type= "PQ" value="39" /> <interpretationCode codeSystem="local" code="*" /> <referenceRange> <observationRange> <text>50- 125</text> </observationRange> </referenceRange> </ observation> </component> </organizer> </entry> <entry> <organizer moodCode="EVN" classCode="BATTERY"> <templateId root= "2.16.840.1.915576.10.20.22.4.1" /> <id nullFlavor="NA" /> <code codeSystem="local" code="VALP" displayName="Valproic Acid" /> <statusCode code="completed" /> <component> <observation moodCode="EVN" classCode="OBS"> <templateId root="2.16.840.1.599527.10.20.22.4.2" /> <id nullFlavor="NA" /> <code codeSystem="local" code="VALP" displayName="Valproic Acid" /> <statusCode code="completed" /> <effectiveTime value="230396438674" /> <value unit="ug/mL" xsi:type= "PQ" value="21" /> <interpretationCode codeSystem="local" code="*" /> <referenceRange> <observationRange> <text>50- 125</text> </observationRange> </referenceRange> </ observation> </component> </organizer> </entry> <entry> <organizer moodCode="EVN" classCode="BATTERY"> <templateId root= "840.1.323915.07.02.22.4.1" /> <id nullFlavor="NA" /> <code codeSystem="local" code="GLUN" displayName="Glucose NPT" /> <statusCode code="completed" /> <component> <observation moodCode="EVN" classCode="OBS"> <templateId root="840.1.524364.07.02.224.2" /> <id nullFlavor="NA" /> <code codeSystem="local" code="GLUN" displayName="Glucose NPT" /> <statusCode code="completed" /> <effectiveTime value="013466046187" /> <value unit="mg/dL" xsi:type="PQ " value="106" /> <interpretationCode codeSystem="local" code="*" /> <referenceRange> <observationRange> <text>70-100< /text> </observationRange> </referenceRange> </ observation> </component> </organizer> </entry> <entry> <organizer moodCode="EVN" classCode="BATTERY"> <templateId root= "840.1.065237.07.02.22.4.1" /> <id nullFlavor="NA" /> <code codeSystem="local" code="CBCND" displayName="CBC With Platelet No Differential" /> <statusCode code="completed" /> <component> <observation moodCode="EVN" classCode="OBS"> <templateId root= "840.1.975530.07.02.22.4.2" /> <id nullFlavor="NA" /> < code codeSystem="local" code="HCT" displayName="HCT" /> <statusCode code="completed" /> <effectiveTime value="951619990435" /> < value unit="%" xsi:type="PQ" value="39.0" /> <interpretationCode codeSystem="local" code="*" /> <referenceRange> < observationRange> <text>42.0-52.0</text> </ observationRange> </referenceRange> </observation> </ component> <component> <observation moodCode="EVN" classCode="OBS"> <templateId root="10.29.840.1.360244.10.20.22.4.2" /> <id nullFlavor="NA" /> <code codeSystem="local" code="HGB" displayName="HGB " /> <statusCode code="completed" /> <effectiveTime value= "590558232459" /> <value unit="g/dL" xsi:type="PQ" value="12.6" /> <interpretationCode codeSystem="local" code="*" /> < referenceRange> <observationRange> <text>14.0-18.0</text > </observationRange> </referenceRange> </observation > </component> <component> <observation moodCode="EVN" classCode="OBS"> <templateId root="10.29.840.1.408974.10.20.22.4.2" /> <id nullFlavor="NA" /> <code codeSystem="local" code="MCH" displayName="MCH" /> <statusCode code="completed" /> < effectiveTime value="542736680902" /> <value unit="pg" xsi:type="PQ" value="29.0" /> <referenceRange> <observationRange> <text>27.0-32.0</text> </observationRange> </ referenceRange> </observation> </component> <component> <observation moodCode="EVN" classCode="OBS"> <templateId root= "840.1.163864.10.22.4.2" /> <id nullFlavor="NA" /> < code codeSystem="local" code="MCHC" displayName="MCHC" /> <statusCode code="completed" /> <effectiveTime value="090342380973" /> < value unit="g/dL" xsi:type="PQ" value="32.3" /> <referenceRange> <observationRange> <text>32.0-36.0</text> </ observationRange> </referenceRange> </observation> </ component> <component> <observation moodCode="EVN" classCode="OBS"> <templateId root="216.840.1.304938.07.02.22.4.2" /> <id nullFlavor="NA" /> <code codeSystem="local" code="MCV" displayName="MCV " /> <statusCode code="completed" /> <effectiveTime value= "763701249826" /> <value unit="fL" xsi:type="PQ" value="89.9" /> <referenceRange> <observationRange> <text>82.0-99.0< /text> </observationRange> </referenceRange> </ observation> </component> <component> <observation moodCode= "EVN" classCode="OBS"> <templateId root="16.840.1.739313.1022.4.2 " /> <id nullFlavor="NA" /> <code codeSystem="local" code="MPV " displayName="MPV" /> <statusCode code="completed" /> < effectiveTime value="393738078150" /> <value unit="fL" xsi:type="PQ" value="10.6" /> <referenceRange> <observationRange> <text>9.4-12.3</text> </observationRange> </ referenceRange> </observation> </component> <component> <observation moodCode="EVN" classCode="OBS"> <templateId root= "10.29.840.1.738978.10.22.4.2" /> <id nullFlavor="NA" /> < code codeSystem="local" code="PLT" displayName="Platelet Count" /> < statusCode code="completed" /> <effectiveTime value="" /> <value unit="K/uL" xsi:type="PQ" value="165" /> < referenceRange> <observationRange> <text>150-400</text> </observationRange> </referenceRange> </observation > </component> <component> <observation moodCode="EVN" classCode="OBS"> <templateId root="10.29.840.1.008796.07.02.22.4.2" /> <id nullFlavor="NA" /> <code codeSystem="local" code="RBC" displayName="RBC" /> <statusCode code="completed" /> < effectiveTime value="" /> <value unit="10*6/uL" xsi:type= "PQ" value="4.34" /> <interpretationCode codeSystem="local" code="*" / > <referenceRange> <observationRange> <text> 4.60-6.20</text> </observationRange> </referenceRange> </observation> </component> <component> <observation moodCode="EVN" classCode="OBS"> <templateId root= "10.29.840.1.953457.22.4.2" /> <id nullFlavor="NA" /> < code codeSystem="local" code="RDW" displayName="RDW" /> <statusCode code="completed" /> <effectiveTime value="" /> < value unit="%" xsi:type="PQ" value="16.3" /> <interpretationCode codeSystem="local" code="*" /> <referenceRange> < observationRange> <text>11.5-14.5</text> </ observationRange> </referenceRange> </observation> </ component> <component> <observation moodCode="EVN" classCode="OBS"> <templateId root="840.1.871814.1022.4.2" /> <id nullFlavor="NA" /> <code codeSystem="local" code="WBCIR" displayName= "WBC" /> <statusCode code="completed" /> <effectiveTime value= "894983595469" /> <value unit="K/uL" xsi:type="PQ" value="7.3" /> <referenceRange> <observationRange> <text>4.8-10.8< /text> </observationRange> </referenceRange> </ observation> </component> </organizer> </entry> <entry> <organizer moodCode="EVN" classCode="BATTERY"> <templateId root= "840.1.792607.07.02.22.4.1" /> <id nullFlavor="NA" /> <code codeSystem="local" code="RENAL" displayName="Renal Function Panel" /> < statusCode code="completed" /> <component> <observation moodCode= "EVN" classCode="OBS"> <templateId root="840.1.118351.22.4.2 " /> <id nullFlavor="NA" /> <code codeSystem="local" code="ALB " displayName="Albumin" /> <statusCode code="completed" /> < effectiveTime value="498651715436" /> <value unit="g/dL" xsi:type="PQ" value="3.1" /> <interpretationCode codeSystem="local" code="*" /> <referenceRange> <observationRange> <text>3.5-4.8</ text> </observationRange> </referenceRange> </ observation> </component> <component> <observation moodCode= "EVN" classCode="OBS"> <templateId root="10.29.840.1.580299.10...4.2 " /> <id nullFlavor="NA" /> <code codeSystem="local" code= "AGAP" displayName="Anion Gap" /> <statusCode code="completed" /> <effectiveTime value="078391815893" /> <value unit="mEq/L" xsi: type="PQ" value="5" /> <referenceRange> <observationRange> <text>3-20</text> </observationRange> </ referenceRange> </observation> </component> <component> <observation moodCode="EVN" classCode="OBS"> <templateId root= "10.29.840.1.543874.10..4.2" /> <id nullFlavor="NA" /> < code codeSystem="local" code="BUN" displayName="BUN" /> <statusCode code="completed" /> <effectiveTime value="[id number]" /> < value unit="mg/dL" xsi:type="PQ" value="26" /> <interpretationCode codeSystem="local" code="*" /> <referenceRange> < observationRange> <text>4-20</text> </observationRange> </referenceRange> </observation> </component> < component> <observation moodCode="EVN" classCode="OBS"> < templateId root="10.29.840.1.361916.10..22.4.2" /> <id nullFlavor="NA " /> <code codeSystem="local" code="CA" displayName="Calcium" /> <statusCode code="completed" /> <effectiveTime value="[id number] " /> <value unit="mg/dL" xsi:type="PQ" value="8.9" /> < referenceRange> <observationRange> <text>8.6-10.0</text > </observationRange> </referenceRange> </observation > </component> <component> <observation moodCode="EVN" classCode="OBS"> <templateId root="216.840.1.475936.10..22.4.2" /> <id nullFlavor="NA" /> <code codeSystem="local" code="CL" displayName="Chloride" /> <statusCode code="completed" /> < effectiveTime value="544378074683" /> <value unit="mEq/L" xsi:type="PQ " value="104" /> <referenceRange> <observationRange> <text>99-109</text> </observationRange> </ referenceRange> </observation> </component> <component> <observation moodCode="EVN" classCode="OBS"> <templateId root= "16.840.1.699874.10.20.22.4.2" /> <id nullFlavor="NA" /> < code codeSystem="local" code="CO2" displayName="CO2" /> <statusCode code="completed" /> <effectiveTime value="298447248115" /> < value unit="mEq/L" xsi:type="PQ" value="28" /> <referenceRange> <observationRange> <text>22-32</text> </ observationRange> </referenceRange> </observation> </ component> <component> <observation moodCode="EVN" classCode="OBS"> <templateId root="10.29.840.1.238037.22.4.2" /> <id nullFlavor="NA" /> <code codeSystem="local" code="CREAT" displayName= "Creatinine" /> <statusCode code="completed" /> < effectiveTime value="713496500119" /> <value unit="mg/dL" xsi:type="PQ " value="1.12" /> <referenceRange> <observationRange> <text>0.64-1.27</text> </observationRange> </ referenceRange> </observation> </component> <component> <observation moodCode="EVN" classCode="OBS"> <templateId root= "10.29.840.1.153145.07.02.22.4.2" /> <id nullFlavor="NA" /> < code codeSystem="local" code="GLU" displayName="Glucose" /> < statusCode code="completed" /> <effectiveTime value="231749329955" /> <value unit="mg/dL" xsi:type="PQ" value="89" /> < referenceRange> <observationRange> <text>70-100</text> </observationRange> </referenceRange> </observation> </component> <component> <observation moodCode="EVN" classCode ="OBS"> <templateId root="10.29.840.1.318672.22.4.2" /> < id nullFlavor="NA" /> <code codeSystem="local" code="PHOS" displayName= "Phosphorus" /> <statusCode code="completed" /> < effectiveTime value="514779289092" /> <value unit="mg/dL" xsi:type="PQ " value="3.2" /> <referenceRange> <observationRange> <text>2.4-4.7</text> </observationRange> </ referenceRange> </observation> </component> <component> <observation moodCode="EVN" classCode="OBS"> <templateId root= "10.29.840.1.569159.07.02.22.4.2" /> <id nullFlavor="NA" /> < code codeSystem="local" code="K" displayName="Potassium" /> < statusCode code="completed" /> <effectiveTime value="299553942974" /> <value unit="mEq/L" xsi:type="PQ" value="4.4" /> < referenceRange> <observationRange> <text>3.6-5.1</text> </observationRange> </referenceRange> </observation > </component> <component> <observation moodCode="EVN" classCode="OBS"> <templateId root="10.29.840.1.982336.07.02.22.4.2" /> <id nullFlavor="NA" /> <code codeSystem="local" code="NA" displayName="Sodium" /> <statusCode code="completed" /> < effectiveTime value="119962576204" /> <value unit="mEq/L" xsi:type="PQ " value="137" /> <referenceRange> <observationRange> <text>136-144</text> </observationRange> </ referenceRange> </observation> </component> </organizer> </entry > <entry> <organizer moodCode="EVN" classCode="BATTERY"> <templateId root="10.29.840.1.109106.07.02.22.4.1" /> <id nullFlavor="NA" /> <code codeSystem="local" code="GFR" displayName="eGFR" /> <statusCode code= "completed" /> <component> <observation moodCode="EVN" classCode= "OBS"> <templateId root="10.29.840.1.204700...22.4.2" /> < id nullFlavor="NA" /> <code codeSystem="local" code="GFR" displayName= "eGFR" /> <statusCode code="completed" /> <effectiveTime value ="349420693954" /> <value unit="mL/min" xsi:type="PQ" value=">60" / > <referenceRange> <observationRange> <text>&gt ;60</text> </observationRange> </referenceRange> </ observation> </component> </organizer> </entry> <entry> <organizer moodCode="EVN" classCode="BATTERY"> <templateId root= "16.840.1.750587.10...4.1" /> <id nullFlavor="NA" /> <code codeSystem="local" code="CBCND" displayName="CBC With Platelet No Differential" /> <statusCode code="completed" /> <component> <observation moodCode="EVN" classCode="OBS"> <templateId root= "16.840.1.844628....4.2" /> <id nullFlavor="NA" /> < code codeSystem="local" code="HCT" displayName="HCT" /> <statusCode code="completed" /> <effectiveTime value="308018076477" /> < value unit="%" xsi:type="PQ" value="43.7" /> <referenceRange> <observationRange> <text>42.0-52.0</text> </ observationRange> </referenceRange> </observation> </ component> <component> <observation moodCode="EVN" classCode="OBS"> <templateId root="10.29.840.1.641920.10...4.2" /> <id nullFlavor="NA" /> <code codeSystem="local" code="HGB" displayName="HGB " /> <statusCode code="completed" /> <effectiveTime value= "" /> <value unit="g/dL" xsi:type="PQ" value="14.5" /> <referenceRange> <observationRange> <text>14.0- 18.0</text> </observationRange> </referenceRange> </ observation> </component> <component> <observation moodCode= "EVN" classCode="OBS"> <templateId root="10.29.840.1.960787.10..22.4.2 " /> <id nullFlavor="NA" /> <code codeSystem="local" code="MCH " displayName="MCH" /> <statusCode code="completed" /> < effectiveTime value="" /> <value unit="pg" xsi:type="PQ" value="30.3" /> <referenceRange> <observationRange> <text>27.0-32.0</text> </observationRange> </ referenceRange> </observation> </component> <component> <observation moodCode="EVN" classCode="OBS"> <templateId root= "10.29.840.1.201022.10..22.4.2" /> <id nullFlavor="NA" /> < code codeSystem="local" code="MCHC" displayName="MCHC" /> <statusCode code="completed" /> <effectiveTime value="" /> < value unit="g/dL" xsi:type="PQ" value="33.2" /> <referenceRange> <observationRange> <text>32.0-36.0</text> </ observationRange> </referenceRange> </observation> </ component> <component> <observation moodCode="EVN" classCode="OBS"> <templateId root="10.29.830.1.800875.10..22.4.2" /> <id nullFlavor="NA" /> <code codeSystem="local" code="MCV" displayName="MCV " /> <statusCode code="completed" /> <effectiveTime value= "" /> <value unit="fL" xsi:type="PQ" value="91.2" /> <referenceRange> <observationRange> <text>82.0-99.0< /text> </observationRange> </referenceRange> </ observation> </component> <component> <observation moodCode= "EVN" classCode="OBS"> <templateId root="216.840.1.182289...4.2 " /> <id nullFlavor="NA" /> <code codeSystem="local" code="MPV " displayName="MPV" /> <statusCode code="completed" /> < effectiveTime value="" /> <value unit="fL" xsi:type="PQ" value="10.7" /> <referenceRange> <observationRange> <text>9.4-12.3</text> </observationRange> </ referenceRange> </observation> </component> <component> <observation moodCode="EVN" classCode="OBS"> <templateId root= "16.840.1.888231...22.4.2" /> <id nullFlavor="NA" /> < code codeSystem="local" code="PLT" displayName="Platelet Count" /> < statusCode code="completed" /> <effectiveTime value="" /> <value unit="K/uL" xsi:type="PQ" value="167" /> < referenceRange> <observationRange> <text>150-400</text> </observationRange> </referenceRange> </observation > </component> <component> <observation moodCode="EVN" classCode="OBS"> <templateId root="16.840.1.654724.10..22.4.2" /> <id nullFlavor="NA" /> <code codeSystem="local" code="RBC" displayName="RBC" /> <statusCode code="completed" /> < effectiveTime value="" /> <value unit="10*6/uL" xsi:type= "PQ" value="4.79" /> <referenceRange> <observationRange> <text>4.60-6.20</text> </observationRange> </ referenceRange> </observation> </component> <component> <observation moodCode="EVN" classCode="OBS"> <templateId root= "10.29.840.1.282679.22.4.2" /> <id nullFlavor="NA" /> < code codeSystem="local" code="RDW" displayName="RDW" /> <statusCode code="completed" /> <effectiveTime value="" /> < value unit="%" xsi:type="PQ" value="14.9" /> <interpretationCode codeSystem="local" code="*" /> <referenceRange> < observationRange> <text>11.5-14.5</text> </ observationRange> </referenceRange> </observation> </ component> <component> <observation moodCode="EVN" classCode="OBS"> <templateId root="10.29.840.1.046064.10.22.4.2" /> <id nullFlavor="NA" /> <code codeSystem="local" code="WBCIR" displayName= "WBC" /> <statusCode code="completed" /> <effectiveTime value= "" /> <value unit="K/uL" xsi:type="PQ" value="7.5" /> <referenceRange> <observationRange> <text>4.8-10.8< /text> </observationRange> </referenceRange> </ observation> </component> </organizer> </entry> <entry> <organizer moodCode="EVN" classCode="BATTERY"> <templateId root= "10.29.840.1.076099.10..22.4.1" /> <id nullFlavor="NA" /> <code codeSystem="local" code="CMP" displayName="Comprehensive Metabolic Panel (CMP)" /> <statusCode code="completed" /> <component> <observation moodCode="EVN" classCode="OBS"> <templateId root= "10.29.840.1.205685.10...4.2" /> <id nullFlavor="NA" /> < code codeSystem="local" code="ALB" displayName="Albumin" /> < statusCode code="completed" /> <effectiveTime value="" /> <value unit="g/dL" xsi:type="PQ" value="4.0" /> < referenceRange> <observationRange> <text>3.5-4.8</text> </observationRange> </referenceRange> </observation > </component> <component> <observation moodCode="EVN" classCode="OBS"> <templateId root="10.29.840.1.200404.10.22.4.2" /> <id nullFlavor="NA" /> <code codeSystem="local" code="ALP" displayName="Alkaline Phosphatase" /> <statusCode code="completed" /> <effectiveTime value="" /> <value unit="U/L" xsi: type="PQ" value="36" /> <referenceRange> <observationRange> <text>26-104</text> </observationRange> </ referenceRange> </observation> </component> <component> <observation moodCode="EVN" classCode="OBS"> <templateId root= "216.840.1.217942.10...4.2" /> <id nullFlavor="NA" /> < code codeSystem="local" code="ALT" displayName="ALT (SGPT)" /> < statusCode code="completed" /> <effectiveTime value="" /> <value unit="U/L" xsi:type="PQ" value="23" /> <referenceRange > <observationRange> <text>17-63</text> </ observationRange> </referenceRange> </observation> </ component> <component> <observation moodCode="EVN" classCode="OBS"> <templateId root="10.29.840.1.946858.07.02.22.4.2" /> <id nullFlavor="NA" /> <code codeSystem="local" code="AGAP" displayName= "Anion Gap" /> <statusCode code="completed" /> <effectiveTime value="" /> <value unit="mEq/L" xsi:type="PQ" value="8" /> <referenceRange> <observationRange> <text>3-20 </text> </observationRange> </referenceRange> </ observation> </component> <component> <observation moodCode= "EVN" classCode="OBS"> <templateId root="16.840.1.779766.10...4.2 " /> <id nullFlavor="NA" /> <code codeSystem="local" code="AST " displayName="AST (SGOT)" /> <statusCode code="completed" /> <effectiveTime value="" /> <value unit="U/L" xsi:type="PQ" value="18" /> <referenceRange> <observationRange> <text>15-41</text> </observationRange> </referenceRange > </observation> </component> <component> <observation moodCode="EVN" classCode="OBS"> <templateId root= "216.840.1.521210.10..22.4.2" /> <id nullFlavor="NA" /> < code codeSystem="local" code="BILIT" displayName="Bilirubin Total" /> < statusCode code="completed" /> <effectiveTime value="" /> <value unit="mg/dL" xsi:type="PQ" value="0.6" /> < referenceRange> <observationRange> <text>0.2-1.2</text> </observationRange> </referenceRange> </observation > </component> <component> <observation moodCode="EVN" classCode="OBS"> <templateId root="16.840.1.929547.10...4.2" /> <id nullFlavor="NA" /> <code codeSystem="local" code="BUN" displayName="BUN" /> <statusCode code="completed" /> < effectiveTime value="" /> <value unit="mg/dL" xsi:type="PQ " value="31" /> <interpretationCode codeSystem="local" code="*" /> <referenceRange> <observationRange> <text>4-20</ text> </observationRange> </referenceRange> </ observation> </component> <component> <observation moodCode= "EVN" classCode="OBS"> <templateId root="16.840.1.703552.10..22.4.2 " /> <id nullFlavor="NA" /> <code codeSystem="local" code="CA " displayName="Calcium" /> <statusCode code="completed" /> < effectiveTime value="" /> <value unit="mg/dL" xsi:type="PQ " value="9.7" /> <referenceRange> <observationRange> <text>8.6-10.0</text> </observationRange> </ referenceRange> </observation> </component> <component> <observation moodCode="EVN" classCode="OBS"> <templateId root= "10.29.840.1.998201.10..22.4.2" /> <id nullFlavor="NA" /> < code codeSystem="local" code="CL" displayName="Chloride" /> < statusCode code="completed" /> <effectiveTime value="" /> <value unit="mEq/L" xsi:type="PQ" value="101" /> < referenceRange> <observationRange> <text>99-109</text> </observationRange> </referenceRange> </observation> </component> <component> <observation moodCode="EVN" classCode ="OBS"> <templateId root="16.840.1.388355...22.4.2" /> < id nullFlavor="NA" /> <code codeSystem="local" code="CO2" displayName= "CO2" /> <statusCode code="completed" /> <effectiveTime value= "" /> <value unit="mEq/L" xsi:type="PQ" value="31" /> <referenceRange> <observationRange> <text>22-32</ text> </observationRange> </referenceRange> </ observation> </component> <component> <observation moodCode= "EVN" classCode="OBS"> <templateId root="10.29.840.1.869187.07.02.22.4.2 " /> <id nullFlavor="NA" /> <code codeSystem="local" code= "CREAT" displayName="Creatinine" /> <statusCode code="completed" /> <effectiveTime value="" /> <value unit="mg/dL" xsi: type="PQ" value="1.20" /> <referenceRange> <observationRange > <text>0.64-1.27</text> </observationRange> </ referenceRange> </observation> </component> <component> <observation moodCode="EVN" classCode="OBS"> <templateId root= "2.16.840.1.811050.07.02.22.4.2" /> <id nullFlavor="NA" /> < code codeSystem="local" code="GLOB" displayName="Globulin" /> < statusCode code="completed" /> <effectiveTime value="" /> <value unit="g/dL" xsi:type="PQ" value="2.4" /> < referenceRange> <observationRange> <text>1.9-4.3</text> </observationRange> </referenceRange> </observation > </component> <component> <observation moodCode="EVN" classCode="OBS"> <templateId root="2.16.840.1.270477...4.2" /> <id nullFlavor="NA" /> <code codeSystem="local" code="GLU" displayName="Glucose" /> <statusCode code="completed" /> < effectiveTime value="" /> <value unit="mg/dL" xsi:type="PQ " value="97" /> <referenceRange> <observationRange> <text>70-100</text> </observationRange> </ referenceRange> </observation> </component> <component> <observation moodCode="EVN" classCode="OBS"> <templateId root= "10.29.840.1.275737.10.22.4.2" /> <id nullFlavor="NA" /> < code codeSystem="local" code="K" displayName="Potassium" /> < statusCode code="completed" /> <effectiveTime value="" /> <value unit="mEq/L" xsi:type="PQ" value="4.8" /> < referenceRange> <observationRange> <text>3.6-5.1</text> </observationRange> </referenceRange> </observation > </component> <component> <observation moodCode="EVN" classCode="OBS"> <templateId root="840.1.737741..22.4.2" /> <id nullFlavor="NA" /> <code codeSystem="local" code="TP" displayName="Protein" /> <statusCode code="completed" /> < effectiveTime value="" /> <value unit="g/dL" xsi:type="PQ" value="6.4" /> <referenceRange> <observationRange> <text>6.1-7.9</text> </observationRange> </ referenceRange> </observation> </component> <component> <observation moodCode="EVN" classCode="OBS"> <templateId root= "840.1.175574.10.20.22.4.2" /> <id nullFlavor="NA" /> < code codeSystem="local" code="NA" displayName="Sodium" /> <statusCode code="completed" /> <effectiveTime value="" /> < value unit="mEq/L" xsi:type="PQ" value="140" /> <referenceRange> <observationRange> <text>136-144</text> </ observationRange> </referenceRange> </observation> </ component> </organizer> </entry> <entry> <organizer moodCode="EVN" classCode="BATTERY"> <templateId root="216.840.1.948164.10..22.4.1" /> <id nullFlavor="NA" /> <code codeSystem="local" code="GFR" displayName ="eGFR" /> <statusCode code="completed" /> <component> < observation moodCode="EVN" classCode="OBS"> <templateId root= "10.29.840.1.283837...4.2" /> <id nullFlavor="NA" /> < code codeSystem="local" code="GFR" displayName="eGFR" /> <statusCode code="completed" /> <effectiveTime value="996223349618" /> < value unit="mL/min" xsi:type="PQ" value=">60" /> <referenceRange> <observationRange> <text>>60</text> </ observationRange> </referenceRange> </observation> </ component> </organizer> </entry> <entry> <organizer moodCode="EVN" classCode="BATTERY"> <templateId root="10.29.840.1.123470.10.4.1" /> <id nullFlavor="NA" /> <code codeSystem="local" code="53992-2" displayName="Complete blood count (CBC) with automated white blood cell (WBC) differential" /> <statusCode code="completed" /> <component> < observation moodCode="EVN" classCode="OBS"> <templateId root= "16.840.1.316008.10..22.4.2" /> <id nullFlavor="NA" /> < code codeSystem="local" code="6690-2" displayName="Blood leukocytes automated count (number/volume)" /> <statusCode code="completed" /> < effectiveTime value="" /> <value unit="10*3/uL" xsi:type= "PQ" value="9.1" /> <referenceRange> <observationRange> <text>4.3-11.0</text> </observationRange> </ referenceRange> </observation> </component> <component> <observation moodCode="EVN" classCode="OBS"> <templateId root= "2.16.840.1.976576.10.20.22.4.2" /> <id nullFlavor="NA" /> < code codeSystem="local" code="789-8" displayName="Blood erythrocytes automated count (number/volume)" /> <statusCode code="completed" /> < effectiveTime value="" /> <value unit="10*6/uL" xsi:type= "PQ" value="4.81" /> <referenceRange> <observationRange> <text>4.35-5.85</text> </observationRange> </ referenceRange> </observation> </component> <component> <observation moodCode="EVN" classCode="OBS"> <templateId root= "2.16.840.1.887342.10.20.22.4.2" /> <id nullFlavor="NA" /> < code codeSystem="local" code="77722-1" displayName="Venous blood hemoglobin measurement (mass/volume)" /> <statusCode code="completed" /> <effectiveTime value="" /> <value unit="g/dL" xsi:type="PQ " value="14.7" /> <referenceRange> <observationRange> <text>13.3-17.7</text> </observationRange> </ referenceRange> </observation> </component> <component> <observation moodCode="EVN" classCode="OBS"> <templateId root= "2.16.840.1.287453.10..22.4.2" /> <id nullFlavor="NA" /> < code codeSystem="local" code="98262-3" displayName="Blood hematocrit (volume fraction)" /> <statusCode code="completed" /> <effectiveTime value="624998643400" /> <value unit="%" xsi:type="PQ" value="44" / > <referenceRange> <observationRange> <text>40- 54</text> </observationRange> </referenceRange> </ observation> </component> <component> <observation moodCode= "EVN" classCode="OBS"> <templateId root="2.16.840.1.629752.10..4.2 " /> <id nullFlavor="NA" /> <code codeSystem="local" code="787 -2" displayName="Automated erythrocyte mean corpuscular volume" /> < statusCode code="completed" /> <effectiveTime value="472385664925" /> <value unit="[foz_us]" xsi:type="PQ" value="91" /> < referenceRange> <observationRange> <text>80-99</text> </observationRange> </referenceRange> </observation> </component> <component> <observation moodCode="EVN" classCode= "OBS"> <templateId root="2.16.840.1.767731.10..22.4.2" /> < id nullFlavor="NA" /> <code codeSystem="local" code="785-6" displayName ="Automated erythrocyte mean corpuscular hemoglobin (mass per erythrocyte)" /> <statusCode code="completed" /> <effectiveTime value= "753727358474" /> <value unit="pg" xsi:type="PQ" value="31" /> <referenceRange> <observationRange> <text>25-34</text > </observationRange> </referenceRange> </observation > </component> <component> <observation moodCode="EVN" classCode="OBS"> <templateId root="2.16.840.1.824763.10..22.4.2" /> <id nullFlavor="NA" /> <code codeSystem="local" code="786-4" displayName="Automated erythrocyte mean corpuscular hemoglobin concentration measurement (mass/volume)" /> <statusCode code="completed" /> <effectiveTime value="734460952749" /> <value unit="g/dL" xsi:type="PQ " value="34" /> <referenceRange> <observationRange> <text>32-36</text> </observationRange> </ referenceRange> </observation> </component> <component> <observation moodCode="EVN" classCode="OBS"> <templateId root= "2.16.840.1.796400.10..22.4.2" /> <id nullFlavor="NA" /> < code codeSystem="local" code="788-0" displayName="Automated erythrocyte distribution width ratio" /> <statusCode code="completed" /> < effectiveTime value="621850995742" /> <value unit="%" xsi:type="PQ " value="14.2" /> <referenceRange> <observationRange> <text>10.0-14.5</text> </observationRange> </ referenceRange> </observation> </component> <component> <observation moodCode="EVN" classCode="OBS"> <templateId root= "2.16.840.1.867600.10.20.22.4.2" /> <id nullFlavor="NA" /> < code codeSystem="local" code="777-3" displayName="Automated blood platelet count (count/volume)" /> <statusCode code="completed" /> < effectiveTime value="190834052668" /> <value unit="10*3/uL" xsi:type= "PQ" value="155" /> <referenceRange> <observationRange> <text>130-400</text> </observationRange> </ referenceRange> </observation> </component> <component> <observation moodCode="EVN" classCode="OBS"> <templateId root= "2.16.840.1.657533.10..22.4.2" /> <id nullFlavor="NA" /> < code codeSystem="local" code="05437-6" displayName="Automated blood platelet mean volume measurement" /> <statusCode code="completed" /> < effectiveTime value="817334828613" /> <value unit="[foz_us]" xsi:type= "PQ" value="10.5" /> <interpretationCode codeSystem="local" code="" / > <referenceRange> <observationRange> <text>7.4 -10.4</text> </observationRange> </referenceRange> </ observation> </component> <component> <observation moodCode= "EVN" classCode="OBS"> <templateId root="2.16.840.1.056096.10.20.22.4.2 " /> <id nullFlavor="NA" /> <code codeSystem="local" code="770 -8" displayName="Automated blood neutrophils/100 leukocytes" /> < statusCode code="completed" /> <effectiveTime value="973173118968" /> <value unit="%" xsi:type="PQ" value="69" /> < referenceRange> <observationRange> <text>42-75</text> </observationRange> </referenceRange> </observation> </component> <component> <observation moodCode="EVN" classCode= "OBS"> <templateId root="216.840.1.918081.10.20.22.4.2" /> < id nullFlavor="NA" /> <code codeSystem="local" code="736-9" displayName ="Automated blood lymphocytes/100 leukocytes" /> <statusCode code= "completed" /> <effectiveTime value="640150045599" /> <value unit="%" xsi:type="PQ" value="16" /> <referenceRange> < observationRange> <text>12-44</text> </observationRange > </referenceRange> </observation> </component> < component> <observation moodCode="EVN" classCode="OBS"> < templateId root="16.840.1.957455...4.2" /> <id nullFlavor="NA " /> <code codeSystem="local" code="80078-5" displayName="Blood monocytes/100 leukocytes" /> <statusCode code="completed" /> < effectiveTime value="288151233202" /> <value unit="%" xsi:type="PQ " value="13" /> <interpretationCode codeSystem="local" code="" /> <referenceRange> <observationRange> <text>0-12</ text> </observationRange> </referenceRange> </ observation> </component> <component> <observation moodCode= "EVN" classCode="OBS"> <templateId root="16.840.1.427215.10..22.4.2 " /> <id nullFlavor="NA" /> <code codeSystem="local" code="713 -8" displayName="Automated blood eosinophils/100 leukocytes" /> < statusCode code="completed" /> <effectiveTime value="709511480679" /> <value unit="%" xsi:type="PQ" value="2" /> <referenceRange > <observationRange> <text>0-10</text> </ observationRange> </referenceRange> </observation> </ component> <component> <observation moodCode="EVN" classCode="OBS"> <templateId root="2.16.840.1.780922.10.20.22.4.2" /> <id nullFlavor="NA" /> <code codeSystem="local" code="706-2" displayName= "Automated blood basophils/100 leukocytes" /> <statusCode code= "completed" /> <effectiveTime value="226399884614" /> <value unit="%" xsi:type="PQ" value="0" /> <referenceRange> < observationRange> <text>0-10</text> </observationRange> </referenceRange> </observation> </component> < component> <observation moodCode="EVN" classCode="OBS"> < templateId root="2.16.840.1.501935.10.20.22.4.2" /> <id nullFlavor="NA " /> <code codeSystem="local" code="751-8" displayName="Blood neutrophils automated count (number/volume)" /> <statusCode code= "completed" /> <effectiveTime value="479546718659" /> <value unit="10*3" xsi:type="PQ" value="6.3" /> <referenceRange> < observationRange> <text>1.8-7.8</text> </ observationRange> </referenceRange> </observation> </ component> <component> <observation moodCode="EVN" classCode="OBS"> <templateId root=".16.840.1.548864.10.20.22.4.2" /> <id nullFlavor="NA" /> <code codeSystem="local" code="731-0" displayName= "Blood lymphocytes automated count (number/volume)" /> <statusCode code ="completed" /> <effectiveTime value="430775326172" /> <value unit="10*3" xsi:type="PQ" value="1.4" /> <referenceRange> < observationRange> <text>1.0-4.0</text> </ observationRange> </referenceRange> </observation> </ component> <component> <observation moodCode="EVN" classCode="OBS"> <templateId root="10.29.840.1.363845.102022.4.2" /> <id nullFlavor="NA" /> <code codeSystem="local" code="742-7" displayName= "Blood monocytes automated count (number/volume)" /> <statusCode code= "completed" /> <effectiveTime value="" /> <value unit="10*3" xsi:type="PQ" value="1.2" /> <interpretationCode codeSystem ="local" code="" /> <referenceRange> <observationRange> <text>0.0-1.0</text> </observationRange> </ referenceRange> </observation> </component> <component> <observation moodCode="EVN" classCode="OBS"> <templateId root= "10.29.840.1.266296.10.2022.4.2" /> <id nullFlavor="NA" /> < code codeSystem="local" code="711-2" displayName="Automated eosinophil count" / > <statusCode code="completed" /> <effectiveTime value= "440079203848" /> <value unit="10*3/uL" xsi:type="PQ" value="0.2" /> <referenceRange> <observationRange> <text>0.0- 0.3</text> </observationRange> </referenceRange> </ observation> </component> <component> <observation moodCode= "EVN" classCode="OBS"> <templateId root="16.840.1.048692.10.2022.4.2 " /> <id nullFlavor="NA" /> <code codeSystem="local" code="704 -7" displayName="Automated blood basophil count (count/volume)" /> < statusCode code="completed" /> <effectiveTime value="" /> <value unit="10*3/uL" xsi:type="PQ" value="0.0" /> < referenceRange> <observationRange> <text>0.0-0.1</text> </observationRange> </referenceRange> </observation > </component> </organizer> </entry> <entry> <organizer moodCode= "EVN" classCode="BATTERY"> <templateId root="10.29.840.1.699359.1022.4.1 " /> <id nullFlavor="NA" /> <code codeSystem="local" code="47545-5" displayName="Comprehensive metabolic panel" /> <statusCode code="completed " /> <component> <observation moodCode="EVN" classCode="OBS"> <templateId root="10.29.840.1.888694.10.2022.4.2" /> <id nullFlavor ="NA" /> <code codeSystem="local" code="2951-2" displayName="Serum or plasma sodium measurement (moles/volume)" /> <statusCode code= "completed" /> <effectiveTime value="335861833958" /> <value unit="mmol/L" xsi:type="PQ" value="140" /> <referenceRange> <observationRange> <text>135-145</text> </ observationRange> </referenceRange> </observation> </ component> <component> <observation moodCode="EVN" classCode="OBS"> <templateId root="2.16.840.1.798054.10.20.22.4.2" /> <id nullFlavor="NA" /> <code codeSystem="local" code="2823-" displayName= "Serum or plasma potassium measurement (moles/volume)" /> <statusCode code="completed" /> <effectiveTime value="124883089759" /> < value unit="mmol/L" xsi:type="PQ" value="4.8" /> <referenceRange> <observationRange> <text>3.6-5.0</text> </ observationRange> </referenceRange> </observation> </ component> <component> <observation moodCode="EVN" classCode="OBS"> <templateId root="16.840.1.989488.10..22.4.2" /> <id nullFlavor="NA" /> <code codeSystem="local" code="" displayName= "Serum or plasma chloride measurement (moles/volume)" /> <statusCode code="completed" /> <effectiveTime value="396175246370" /> < value unit="mmol/L" xsi:type="PQ" value="105" /> <referenceRange> <observationRange> <text>98-107</text> </ observationRange> </referenceRange> </observation> </ component> <component> <observation moodCode="EVN" classCode="OBS"> <templateId root="216.840.1.501291.10.20.22.4.2" /> <id nullFlavor="NA" /> <code codeSystem="local" code="2028-05" displayName= "Carbon dioxide" /> <statusCode code="completed" /> < effectiveTime value="572607131374" /> <value unit="mmol/L" xsi:type="PQ " value="28" /> <referenceRange> <observationRange> <text>21-32</text> </observationRange> </ referenceRange> </observation> </component> <component> <observation moodCode="EVN" classCode="OBS"> <templateId root= "2.16.840.1.775489.10.20.22.4.2" /> <id nullFlavor="NA" /> < code codeSystem="local" code="00562-7" displayName="Serum or plasma anion gap determination (moles/volume)" /> <statusCode code="completed" /> <effectiveTime value="958062214220" /> <value unit="mmol/L" xsi: type="PQ" value="7" /> <referenceRange> <observationRange> <text>5-14</text> </observationRange> </ referenceRange> </observation> </component> <component> <observation moodCode="EVN" classCode="OBS"> <templateId root= "2.16.840.1.522300.10.20.22.4.2" /> <id nullFlavor="NA" /> < code codeSystem="local" code="3094-0" displayName="Serum or plasma urea nitrogen measurement (mass/volume)" /> <statusCode code="completed" /> <effectiveTime value="822885344652" /> <value unit="mg/dL" xsi:type="PQ" value="30" /> <interpretationCode codeSystem="local" code ="" /> <referenceRange> <observationRange> < text>7-18</text> </observationRange> </referenceRange> </observation> </component> <component> <observation moodCode="EVN" classCode="OBS"> <templateId root= "2.16.840.1.692249.10.20.22.4.2" /> <id nullFlavor="NA" /> < code codeSystem="local" code="2160-0" displayName="Serum or plasma creatinine measurement (mass/volume)" /> <statusCode code="completed" /> <effectiveTime value="450747155731" /> <value unit="mg/dL" xsi:type="PQ " value="0.96" /> <referenceRange> <observationRange> <text>0.60-1.30</text> </observationRange> </ referenceRange> </observation> </component> <component> <observation moodCode="EVN" classCode="OBS"> <templateId root= "2.16.840.1.639378.10...4.2" /> <id nullFlavor="NA" /> < code codeSystem="local" code="3097-3" displayName="Serum or plasma urea nitrogen /creatinine mass ratio" /> <statusCode code="completed" /> < effectiveTime value="926289433841" /> <value unit="" xsi:type="PQ" value="31" /> <referenceRange> <observationRange> <text>NRG</text> </observationRange> </referenceRange> </observation> </component> <component> <observation moodCode="EVN" classCode="OBS"> <templateId root= "2.16.840.1.272449.10..22.4.2" /> <id nullFlavor="NA" /> < code codeSystem="local" code="09144-5" displayName="Serum or plasma creatinine measurement with calculation of estimated glomerular filtration rate" /> <statusCode code="completed" /> <effectiveTime value="740269249988" /> <value unit="" xsi:type="PQ" value=">" /> < referenceRange> <observationRange> <text>NRG</text> </observationRange> </referenceRange> </observation> </component> <component> <observation moodCode="EVN" classCode= "OBS"> <templateId root="2.16.840.1.603353.10.20.22.4.2" /> < id nullFlavor="NA" /> <code codeSystem="local" code="2345-7" displayName="Serum or plasma glucose measurement (mass/volume)" /> < statusCode code="completed" /> <effectiveTime value="575572549254" /> <value unit="mg/dL" xsi:type="PQ" value="98" /> < referenceRange> <observationRange> <text>70-105</text> </observationRange> </referenceRange> </observation> </component> <component> <observation moodCode="EVN" classCode ="OBS"> <templateId root="216.840.1.915561.10..22.4.2" /> < id nullFlavor="NA" /> <code codeSystem="local" code="58410-7" displayName="Serum or plasma calcium measurement (mass/volume)" /> < statusCode code="completed" /> <effectiveTime value="363874232935" /> <value unit="mg/dL" xsi:type="PQ" value="9.6" /> < referenceRange> <observationRange> <text>8.5-10.1</text > </observationRange> </referenceRange> </observation > </component> <component> <observation moodCode="EVN" classCode="OBS"> <templateId root="2.16.840.1.587616.10.20.22.4.2" /> <id nullFlavor="NA" /> <code codeSystem="local" code="1974-10" displayName="Serum or plasma total bilirubin measurement (mass/volume)" /> <statusCode code="completed" /> <effectiveTime value="556855652421 " /> <value unit="mg/dL" xsi:type="PQ" value="0.3" /> < referenceRange> <observationRange> <text>0.1-1.0</text> </observationRange> </referenceRange> </observation > </component> <component> <observation moodCode="EVN" classCode="OBS"> <templateId root="2.16.840.1.489874.10.20.22.4.2" /> <id nullFlavor="NA" /> <code codeSystem="local" code="6768-6" displayName="Serum or plasma alkaline phosphatase measurement (enzymatic activity/volume)" /> <statusCode code="completed" /> < effectiveTime value="882541087847" /> <value unit="U/L" xsi:type="PQ" value="41" /> <referenceRange> <observationRange> <text>40-136</text> </observationRange> </referenceRange > </observation> </component> <component> <observation moodCode="EVN" classCode="OBS"> <templateId root= "2.16.840.1.784536.10.20.22.4.2" /> <id nullFlavor="NA" /> < code codeSystem="local" code="192" displayName="Serum or plasma aspartate aminotransferase measurement (enzymatic activity/volume)" /> < statusCode code="completed" /> <effectiveTime value="320274948324" /> <value unit="U/L" xsi:type="PQ" value="13" /> <referenceRange > <observationRange> <text>5-34</text> </ observationRange> </referenceRange> </observation> </ component> <component> <observation moodCode="EVN" classCode="OBS"> <templateId root="2.16.840.1.126982.10.20.22.4.2" /> <id nullFlavor="NA" /> <code codeSystem="local" code="1742-6" displayName= "Serum or plasma alanine aminotransferase measurement (enzymatic activity/volume )" /> <statusCode code="completed" /> <effectiveTime value= "700664844757" /> <value unit="U/L" xsi:type="PQ" value="21" /> <referenceRange> <observationRange> <text>0-55</text > </observationRange> </referenceRange> </observation > </component> <component> <observation moodCode="EVN" classCode="OBS"> <templateId root="2.16.840.1.452598.10...4.2" /> <id nullFlavor="NA" /> <code codeSystem="local" code="2885-2" displayName="Serum or plasma protein measurement (mass/volume)" /> < statusCode code="completed" /> <effectiveTime value="349175476956" /> <value unit="g/dL" xsi:type="PQ" value="6.8" /> < referenceRange> <observationRange> <text>6.4-8.2</text> </observationRange> </referenceRange> </observation > </component> <component> <observation moodCode="EVN" classCode="OBS"> <templateId root="2.16.840.1.049061.10..22.4.2" /> <id nullFlavor="NA" /> <code codeSystem="local" code="1751-7" displayName="Serum or plasma albumin measurement (mass/volume)" /> < statusCode code="completed" /> <effectiveTime value="357248310463" /> <value unit="g/dL" xsi:type="PQ" value="4.2" /> < referenceRange> <observationRange> <text>3.2-4.5</text> </observationRange> </referenceRange> </observation > </component> </organizer> </entry> <entry> <organizer moodCode= "EVN" classCode="BATTERY"> <templateId root="216.840.1.432003.10..4.1 " /> <id nullFlavor="NA" /> <code codeSystem="local" code="XQK8980" displayName="[id number]" /> <statusCode code="completed" /> <component> <observation moodCode="EVN" classCode="OBS"> <templateId root= "2.16.840.1.334772.10...4.2" /> <id nullFlavor="NA" /> < code codeSystem="local" code="BOR2077" displayName="[id number]" /> < statusCode code="completed" /> <effectiveTime value="811615570683" /> <value unit="ug/mL" xsi:type="PQ" value="55.5" /> < referenceRange> <observationRange> <text>50.0-100.0</ text> </observationRange> </referenceRange> </ observation> </component> </organizer> </entry> <entry> <organizer moodCode="EVN" classCode="BATTERY"> <templateId root= "216.840.1.855131.10..22.4.1" /> <id nullFlavor="NA" /> <code codeSystem="local" code="42646-6" displayName="Complete urinalysis with reflex to culture" /> <statusCode code="completed" /> <component> < observation moodCode="EVN" classCode="OBS"> <templateId root= "216.840.1.081057.10..22.4.2" /> <id nullFlavor="NA" /> < code codeSystem="local" code="5778-6" displayName="Urine color determination" / > <statusCode code="completed" /> <effectiveTime value= "" /> <value unit="" xsi:type="PQ" value="YELLOW" /> <referenceRange> <observationRange> <text>NRG</text > </observationRange> </referenceRange> </observation > </component> <component> <observation moodCode="EVN" classCode="OBS"> <templateId root="16.840.1.002362.10...4.2" /> <id nullFlavor="NA" /> <code codeSystem="local" code="12818-1 " displayName="Urine clarity determination" /> <statusCode code= "completed" /> <effectiveTime value="" /> <value unit="" xsi:type="PQ" value="CLEAR" /> <referenceRange> < observationRange> <text>NRG</text> </observationRange> </referenceRange> </observation> </component> < component> <observation moodCode="EVN" classCode="OBS"> < templateId root="16.840.1.645430.10..22.4.2" /> <id nullFlavor="NA " /> <code codeSystem="local" code="5803-2" displayName="Urine pH measurement by test strip" /> <statusCode code="completed" /> <effectiveTime value="" /> <value unit="" xsi:type="PQ" value="8" /> <referenceRange> <observationRange> <text>5-9</text> </observationRange> </referenceRange> </observation> </component> <component> <observation moodCode="EVN" classCode="OBS"> <templateId root= "216.840.1.813082.10..4.2" /> <id nullFlavor="NA" /> < code codeSystem="local" code="5811-5" displayName="Specific gravity of urine by test strip" /> <statusCode code="completed" /> <effectiveTime value="477159462163" /> <value unit="" xsi:type="PQ" value="1.010" /> <interpretationCode codeSystem="local" code="" /> < referenceRange> <observationRange> <text>1.016-1.022</ text> </observationRange> </referenceRange> </ observation> </component> <component> <observation moodCode= "EVN" classCode="OBS"> <templateId root="10.29.840.1.377146.10.4.2 " /> <id nullFlavor="NA" /> <code codeSystem="local" code= "90079-2" displayName="Urine protein assay by test strip, semi-quantitative" /> <statusCode code="completed" /> <effectiveTime value= "757000146127" /> <value unit="" xsi:type="PQ" value="NEGATIVE" /> <referenceRange> <observationRange> <text>NEGATIVE </text> </observationRange> </referenceRange> </ observation> </component> <component> <observation moodCode= "EVN" classCode="OBS"> <templateId root="16.840.1.465917.10..4.2 " /> <id nullFlavor="NA" /> <code codeSystem="local" code= "25253-1" displayName="Urine glucose detection by automated test strip" /> <statusCode code="completed" /> <effectiveTime value=" " /> <value unit="" xsi:type="PQ" value="NEGATIVE" /> < referenceRange> <observationRange> <text>NEGATIVE</text > </observationRange> </referenceRange> </observation > </component> <component> <observation moodCode="EVN" classCode="OBS"> <templateId root="216.840.1.178539.10.22.4.2" /> <id nullFlavor="NA" /> <code codeSystem="local" code="99760-8 " displayName="Erythrocytes detection in urine sediment by light microscopy" /> <statusCode code="completed" /> <effectiveTime value= "" /> <value unit="" xsi:type="PQ" value="NEGATIVE" /> <referenceRange> <observationRange> <text>NEGATIVE </text> </observationRange> </referenceRange> </ observation> </component> <component> <observation moodCode= "EVN" classCode="OBS"> <templateId root="10.29.840.1.517631.1022.4.2 " /> <id nullFlavor="NA" /> <code codeSystem="local" code= "54186-1" displayName="Urine ketones detection by automated test strip" /> <statusCode code="completed" /> <effectiveTime value=" " /> <value unit="" xsi:type="PQ" value="NEGATIVE" /> < referenceRange> <observationRange> <text>NEGATIVE</text > </observationRange> </referenceRange> </observation > </component> <component> <observation moodCode="EVN" classCode="OBS"> <templateId root="216.840.1.614849.10.22.4.2" /> <id nullFlavor="NA" /> <code codeSystem="local" code="5802-4" displayName="Urine nitrite detection by test strip" /> <statusCode code ="completed" /> <effectiveTime value="" /> <value unit="" xsi:type="PQ" value="NEGATIVE" /> <referenceRange> < observationRange> <text>NEGATIVE</text> </ observationRange> </referenceRange> </observation> </ component> <component> <observation moodCode="EVN" classCode="OBS"> <templateId root="2.16.840.1.767690.10.20.22.4.2" /> <id nullFlavor="NA" /> <code codeSystem="local" code="5770-3" displayName= "Urine total bilirubin detection by test strip" /> <statusCode code= "completed" /> <effectiveTime value="" /> <value unit="" xsi:type="PQ" value="NEGATIVE" /> <referenceRange> < observationRange> <text>NEGATIVE</text> </ observationRange> </referenceRange> </observation> </ component> <component> <observation moodCode="EVN" classCode="OBS"> <templateId root="2.16.840.1.317827.10.20.22.4.2" /> <id nullFlavor="NA" /> <code codeSystem="local" code="91270-5" displayName= "Urine urobilinogen measurement by automated test strip (mass/volume)" /> <statusCode code="completed" /> <effectiveTime value=" " /> <value unit="" xsi:type="PQ" value="NORMAL" /> < referenceRange> <observationRange> <text>NORMAL</text> </observationRange> </referenceRange> </observation> </component> <component> <observation moodCode="EVN" classCode ="OBS"> <templateId root="216.840.1.459250.10..22.4.2" /> < id nullFlavor="NA" /> <code codeSystem="local" code="5799-2" displayName="Urine leukocyte esterase detection by dipstick" /> < statusCode code="completed" /> <effectiveTime value="" /> <value unit="" xsi:type="PQ" value="NEGATIVE" /> < referenceRange> <observationRange> <text>NEGATIVE</text > </observationRange> </referenceRange> </observation > </component> <component> <observation moodCode="EVN" classCode="OBS"> <templateId root="216.840.1.629598.10...4.2" /> <id nullFlavor="NA" /> <code codeSystem="local" code="61606-5 " displayName="Automated urine sediment erythrocyte count by microscopy (number/ high power field)" /> <statusCode code="completed" /> < effectiveTime value="" /> <value unit="" xsi:type="PQ" value="RARE" /> <referenceRange> <observationRange> <text>NRG</text> </observationRange> </referenceRange > </observation> </component> <component> <observation moodCode="EVN" classCode="OBS"> <templateId root= "16.840.1.754028.10..22.4.2" /> <id nullFlavor="NA" /> < code codeSystem="local" code="5821-4" displayName="Automated urine sediment leukocyte count by microscopy (number/high power field)" /> < statusCode code="completed" /> <effectiveTime value="" /> <value unit="" xsi:type="PQ" value="RARE" /> <referenceRange> <observationRange> <text>NRG</text> </ observationRange> </referenceRange> </observation> </ component> <component> <observation moodCode="EVN" classCode="OBS"> <templateId root="216.840.1.016237.10..22.4.2" /> <id nullFlavor="NA" /> <code codeSystem="local" code="62101-5" displayName= "Bacteria detection in urine sediment by light microscopy" /> < statusCode code="completed" /> <effectiveTime value="555170873367" /> <value unit="" xsi:type="PQ" value="NEGATIVE" /> < referenceRange> <observationRange> <text>NRG</text> </observationRange> </referenceRange> </observation> </component> <component> <observation moodCode="EVN" classCode= "OBS"> <templateId root="10.29.840.1.614134.10...4.2" /> < id nullFlavor="NA" /> <code codeSystem="local" code="30113-7" displayName="Squamous epithelial cells detection in urine sediment by light microscopy" /> <statusCode code="completed" /> <effectiveTime value="727501052231" /> <value unit="" xsi:type="PQ" value="NONE" /> <referenceRange> <observationRange> <text>NRG</ text> </observationRange> </referenceRange> </ observation> </component> <component> <observation moodCode= "EVN" classCode="OBS"> <templateId root="10.29.840.1.068198.10..22.4.2 " /> <id nullFlavor="NA" /> <code codeSystem="local" code= "02537-1" displayName="Crystals detection in urine sediment by light microscopy " /> <statusCode code="completed" /> <effectiveTime value= "477141492063" /> <value unit="" xsi:type="PQ" value="NONE" /> <referenceRange> <observationRange> <text>NRG</text> </observationRange> </referenceRange> </observation> </component> <component> <observation moodCode="EVN" classCode ="OBS"> <templateId root="216.840.1.926470.10..22.4.2" /> < id nullFlavor="NA" /> <code codeSystem="local" code="54202-3" displayName="Casts detection in urine sediment by light microscopy" /> <statusCode code="completed" /> <effectiveTime value="" /> <value unit="" xsi:type="PQ" value="NONE" /> <referenceRange > <observationRange> <text>NRG</text> </ observationRange> </referenceRange> </observation> </ component> <component> <observation moodCode="EVN" classCode="OBS"> <templateId root="16.840.1.461272.10..4.2" /> <id nullFlavor="NA" /> <code codeSystem="local" code="8247-9" displayName= "Mucus detection in urine sediment by light microscopy" /> <statusCode code="completed" /> <effectiveTime value="" /> < value unit="" xsi:type="PQ" value="NEGATIVE" /> <referenceRange> <observationRange> <text>NRG</text> </ observationRange> </referenceRange> </observation> </ component> <component> <observation moodCode="EVN" classCode="OBS"> <templateId root="216.840.1.934398.10.20.22.4.2" /> <id nullFlavor="NA" /> <code codeSystem="local" code="54390-3" displayName= "Complete urinalysis with reflex to culture" /> <statusCode code= "completed" /> <effectiveTime value="089079466590" /> <value unit="" xsi:type="PQ" value="NO" /> <referenceRange> < observationRange> <text>NRG</text> </observationRange> </referenceRange> </observation> </component> </ organizer> </entry></section> Encounters ACCT No. Visit Date/Time Discharge Status Pt. Type Provider Facility Loc./Unit Complaint [id number] 06/17/2017 13:00:00 06/17/2017 14:51:00 DIS Emergency Tomas Valenzuela DO [facility] W.EDS [id number] 09/28/2016 10:28:00 09/28/2016 17:45:00 DIS Emergency Azul FRAZIER, Vishal [facility] W.LEO [id number] 10/03/2011 13:27:00 Inpatient [id number] 08/05/2017 00:26:00 Document Registration [id number] 03/23/2017 15:49:00 Document Registration [id number] 12/13/2017 13:02:00 12/13/2017 17:49:00 DIS Outpatient SELIN DUNCAN APRN [facility] ER MENTAL EVAL [id number] 08/05/2017 00:26:00 08/05/2017 23:59:59 CLS Emergency Carroll Jacob [facility] ED Head pain [id number] 05/07/2017 13:33:00 05/07/2017 23:59:59 CLS Emergency Bass Denise [facility] on [facility] ED abd pain [id number] 03/23/2017 15:49:00 03/29/2017 14:50:00 DIS Inpatient Morse Donna [facility] on [facility] F8SE ams, leukocytosis [id number] 05/08/2017 05:18:14 Document Registration [id number] 03/30/2017 05:16:25 Document Registration [id number] 03/25/2017 05:16:24 Document Registration [id number] 03/24/2017 05:15:39 Document Registration
--- NOTE | 2017-12-27 17:35 | ED General ---
General Chief Complaint: General Problems/Pain Stated Complaint: IV FLUIDS Nursing Triage Note: PT PRESENTS FROM [facility] FOR IV FLUIDS. SENIOR LIVING REPORTS UNABLE TO GET IV FLUIDS ORDERED IN FACILITY. PT HAD LABS DRAWN TODAY AND HAD HIGH SODIUM. Nursing Sepsis Screen: No Definite Risk Source of Information: Patient, Other ([facility] ) Exam Limitations: Other (patient is nonverbal and unable to give history.) History of Present Illness Date Seen by Provider: Dec 27, 2017 Time Seen by Provider: 17:35 Initial Comments 67 yo male patient presents to the ED from [facility] with reports of needing IV fluids. [facility] staff reports patient had labs drawn earlier this afternoon and was found to have a high sodium. They were instructed by Dr. Huynh to give 1/2 NS at the facility, but are unable to give the fluids. States they only have NS in stock. [facility] staff reports they were instructed to send the patient to the ED for IVF. Timing/Duration: Other (RN reports onset this afternoon) Allergies and Home Medications Allergies Coded Allergies: No Known Drug Allergies (Unverified , 12/13/17) Home Medications Unable to Obtain Active Prescriptions or Reported Meds Patient Home Medication List Home Medication List Reviewed: Yes Review of Systems Constitutional: other (patient is nonverbal and unable to give review of systems.) Past Pmvihnn-Uzdmtr-Lwbgyo Hx Patient Social History Alcohol Use: Denies Use Recreational Drug Use: No Smoking Status: Never a Smoker Recent Foreign Travel: No Contact w/Someone Who Travel: No Recent Infectious Disease Expo: No Physical Abuse: No Sexual Abuse: No Mistreated: No Fear: No Past Medical History Respiratory: No Cardiac: Yes Coronary Artery Disease, High Cholesterol, Hypertension Neurological: Yes Dementia, Stroke, TIA Genitourinary: Yes Prostate Problems Gastrointestinal: No Musculoskeletal: No Nursing Suicide Risk Score: 0 Integumentary: No Family Medical History Reviewed Nursing Family Hx (patient unable to give family history and surgical history due to being nonverbal. Past medical history obtained from [facility] EMR.) Physical Exam Vital Signs Vital Signs - First Documented 12/27/17 17:02 Temp 97.3 Pulse 91 Resp 20 B/P (MAP) 143/99 (114) Pulse Ox 95 Capillary Refill : Less Than 3 Seconds General Appearance: No Apparent Distress, Chronically ill, Other (patient is nonverbal.) HEENT: PERRL/EOMI, Other (white coating of the tongue. oral mucosa dry.) Neck: Normal Inspection, Supple Respiratory: Lungs Clear, Normal Breath Sounds, No Accessory Muscle Use, No Respiratory Distress Cardiovascular: Regular Rate, Rhythm, No Murmur, Normal Peripheral Pulses Gastrointestinal: Normal Bowel Sounds, No Organomegaly, Non Tender (no grimacing on palpation of the abdomen.), Soft Extremity: Normal Capillary Refill Neurologic/Psychiatric: Alert, Other (flat affect. nonverbal.) Skin: Normal Color, Warm/Dry Progress/Results/Core Measures Suspected Sepsis Recent Fever Within 48 Hours: No Infection Criteria Present: None New/Unexplained Altered Menta: No Sepsis Screen: No Definite Risk SIRS Temperature:97.3 Pulse: 91 Respiratory Rate: 20 Blood Pressure 143 /99 Mean: 114 Results/Orders My Orders Orders - IGGY ASHBY Saline Lock/Iv-Start (12/27/17 16:44) 1/2 Ns Iv Solution (0.45% Sodium Chlorid (12/27/17 16:45) 1/2 Ns Iv Solution (0.45% Sodium Chlorid (12/27/17 18:00) Medications Given in ED Current Medications Medications Dose Ordered Sig/Danni Route Start Time Stop Time Status Last Admin Dose Admin Sodium Chloride 1,000 ml @ 0 mls/hr Q0M ONCE IV 12/27/17 16:45 12/27/17 16:47 DC 12/27/17 17:02 0 MLS/HR Sodium Chloride 1,000 ml @ 0 mls/hr Q0M ONCE IV 12/27/17 18:00 12/27/17 18:01 DC 12/27/17 18:34 0 MLS/HR Vital Signs/I&O 12/27/17 12/27/17 17:02 19:35 Temp 97.3 Pulse 91 72 Resp 20 16 B/P (MAP) 143/99 (114) 128/80 Pulse Ox 95 95 Capillary Refill : Less Than 3 Seconds Blood Pressure Mean: 114 Departure Communication (Admissions) Patient seen and evaluated. Outpatient labs reviewed showing a sodium of 159 ( up from 136 on 12/08/17), potassium 4.2, chloride 115, creatinine 1.5(up from 1.0 on 12/08/17), BUN 56, GFR 51, white blood cell 14.17 (up from 11.39 on 12/08), hemoglobin 18.1 (up from 14.9 on 12/08/17), and platelets 178K. patient given 2 L of one half normal saline in the emergency department. Plan for discharge to [facility] with follow-up as an outpatient with Dr. Huynh. They were given a prescription for nystatin swish and swallow to use 5 mL by mouth 4 times a day 10 days. We'll repeat labs tomorrow morning and have the half-way contact Dr. Huynh with the results. Emergency department visit uneventful. Impression Primary Impression: Volume depletion Additional Impression: Hypernatremia Disposition: SNF Condition: Stable Departure-Patient Inst. Decision time for Depature: 18:04 Referrals: FELICIA HUYNH DO (PCP/Family) Primary Care Physician Patient Instructions: Dehydration, Adult (DC) Add. Discharge Instructions: All discharge instructions reviewed with patient and/or family. Voiced understanding. Continue usual medications. Continue usual diet and orders per Dr. Huynh. Repeat labs in the AM. Call Dr. Huynh with the results. Follow-up with Dr. Huynh in 1-2 wks. Return to the emergency department for worsened symptoms, changes in behavior, facial drooping, vomiting, shortness of breath, or any other concerns. Scripts Unable to Obtain Active Prescriptions or Reported Meds IGGY ASHBY Dec 27, 2017 17:35
[2017-12-27 19:35] VITALS: BP 128/80
[2018-01-02] MEDS ORDERED: DIVA125T32 PO ×3 (17:41)
== END 2017-12-27 19:35 ==
LOC: EDUNIT# 16:40 → ER 16:41
DX: E86.9 Volume depletion, unspecified (principal); E87.0 Hyperosmolality and hypernatremia; I25.10 Atherosclerotic heart disease of native coronary artery without angina pectoris; E78.00 Pure hypercholesterolemia, unspecified; I10 Essential (primary) hypertension; F03.90 Unspecified dementia, unspecified severity, without behavioral disturbance, psychotic disturbance, mood disturbance, and anxiety; Z86.73 Personal history of transient ischemic attack (TIA), and cerebral infarction without residual deficits
CPT/HCPCS: 96360; 96361

== ENCOUNTER 2018-01-02 11:17 | Inpatient (IN) | payer MEDICARE ==
[2018-01-02] VITALS (13 sets, daily range): BP systolic 94–124; BP diastolic 57–90
[~2018-01-02] VITALS: Ht 180.3 cm; Wt 82.2 kg
--- OUTSIDE RECORDS SUMMARY | 2018-01-02 11:24 | XMS REPORT | Continuity of Care Document ---
Author Author [facility] Organization [facility] Address Unknown Phone Unavailable Allergies Active Description Code Type Severity Reaction Onset Reported/Identified Relationship to Patient Clinical Status Yes Penicillins Penicillins Drug Allergy Moderate RASH 10/07/2011 Yes No Known Allergies NKMA N/A N/A 03/23/2017 Yes penicillin NKMA N/A [id number] 05/07/2017 Yes No Known Drug Allergies [id number] Drug Allergy Unknown N/A 12/13/2017 Medications Medication [...] and giddiness 05/10/2017 Bass Denise Final Z79.01 detention (current) use of anticoagulants 05/10/2017 Bass Denise Final Z86.73 Personal history of transient ischemic attack (TIA), and cerebral infarctio 05/10/2017 Kali, Korin Final Z87.891 Personal history of nicotine dependence 12/15/2017 SELIN DUNCAN CHILD THERAPIST Ot F03.91 UNSPECIFIED DEMENTIA WITH BEHAVIORAL DIS 12/15/2017 SELIN DUNCAN CHILD THERAPIST Ot G30.9 ALZHEIMER'S DISEASE, UNSPECIFIED 12/15/2017 SELIN DUNCAN CHILD THERAPIST Ot R45.1 RESTLESSNESS AND AGITATION 12/29/2017 MEENAKSHI CLARKEN L Ot E78.00 PURE HYPERCHOLESTEROLEMIA, UNSPECIFIED 12/29/2017 IGGY CLARK L Ot E86.9 VOLUME DEPLETION, UNSPECIFIED 12/29/2017 IGGY CLARK L Ot E87.0 HYPEROSMOLALITY AND HYPERNATREMIA 12/29/2017 IGGY CLARK L Ot F03.90 UNSPECIFIED DEMENTIA WITHOUT BEHAVIORAL 12/29/2017 MEENAKSHI CLARKEN L Ot I10 ESSENTIAL (PRIMARY) HYPERTENSION 12/29/2017 IGGY CLARK Ot I25.10 ATHSCL HEART DISEASE OF [place] CORONARY 12/29/2017 IGGY CLARK Ot Z86.73 PRSNL HX OF TIA (TIA), AND CEREB INFRC W 12/29/2017 IGGY CLARK Ot E78.00 PURE HYPERCHOLESTEROLEMIA, UNSPECIFIED 12/29/2017 IGGY CLARK Ot E86.9 VOLUME DEPLETION, UNSPECIFIED 12/29/2017 IGGY CLARK Ot E87.0 HYPEROSMOLALITY AND HYPERNATREMIA 12/29/2017 IGGY CLARK Ot F03.90 UNSPECIFIED DEMENTIA WITHOUT BEHAVIORAL 12/29/2017 IGGY CLARK Ot I10 ESSENTIAL (PRIMARY) HYPERTENSION 12/29/2017 IGGY CLARK Ot I25.10 ATHSCL HEART DISEASE OF [place] CORONARY 12/29/2017 IGGY CLARK Ot Z86.73 PRSNL HX OF TIA (TIA), AND CEREB INFRC W Procedures There is no data. <section xmlns="urn:hl7-org:v3" xmlns:xsi="http:// www.w3.org/2001/XMLSchema-instance"> <templateId root= "2.16.840.1.095985.10.20.22.2.3" /> <templateId root= "2.16.840.1.317688.10.20.22.2.3.1" /> <code codeSystemName="LYNDONINC" codeSystem= "2.16.840.1.042675.6.1" code="30486-1" displayName="Results" /> <title>Results< /title> <text> <table> <thead> [...] eGFR</td> <td>>60 mL/min</td> <td>>60</td> </tr> <tr> <th colspan="10">Urine Drug Screen - 03/23/17 16:50</th> </tr> [...] <td>Protein</td> <td>Negative NA</td> <td>Negative</td> </tr> <tr> <td>Specific [place]</td> <td>1.020 NA</td> <td>1.003- 1.030</td> </tr> <tr> <td>UA Collection type</td> <td>Catheter NA</td> <td /> </tr> <tr> <td> Urobilinogen</td> <td>2.0 mg/dL</td> <td><1.0</td> < /tr> <tr> < colspan="10">Urine Microscopic - 03/23/17 16:50</ th> </tr> [...] <tr> <td>Sodium</td> <td>133 mEq/L</td> <td>136-144</td> </tr> <tr> < colspan="10">Magnesium - 03/24/17 06:14</th> </tr> <tr> <td>Magnesium</td> <td>2.2 mg/dL</td > <td>1.8-2.5</td> </tr> <tr> <th colspan="10"> Phosphorus - 03/24/17 06:14</th> </tr> <tr> <td> Phosphorus</td> <td>3.0 mg/dL</td> <td>2.4-4.7</td> </ tr> <tr> < colspan="10">eGFR - 03/24/17 06:14</th> </tr > <tr> <td>eGFR</td> <td>>60 mL/min</td> < td>>60</td> </tr> <tr> <th colspan="10">Creatine Kinase (CPK) - 03/24/17 06:14</th> </tr> [...] <td>627 Cells/mm3</td> <td>540 -1600</td> </tr> <tr> <td>CD4 [place] T Cell</td> <td>65.3 %</td> <td>29.0-59.0</td> </tr> <tr> <td>CD4:CD8 Ratio</td> <td>4.98 </td> <td>1.00-2.90</td> </tr> <tr> <td>CD56</td> <td>12.1 %</td> <td>6.0-29.0</td> </tr> <tr> <td>CD56 Absolute</ td> <td>116 Cells/mm3</td> <td>100-600</td> </tr> <tr> <td>CD8 Absolute</td> <td>126 Cells/mm3</td> <td>300-900</td> </tr> <tr> <td>CD8 Suppressor T Cells</ td> <td>13.1 %</td> <td>18.0-36.0</td> </tr> <tr> <td>Lymphocytes, Absolute</td> <td>960 mm3</td> <td>1048-2022</td> </tr> <tr> <th colspan="10">CBC With Platelet No [...] <td> Sodium</td> <td>133 mEq/L</td> <td>136-144</td> </tr> <tr> < colspan="10">Magnesium - 03/26/17 05:38</th> </ tr> <tr> <td>Magnesium</td> <td>2.2 mg/dL</td> <td>1.8-2.5</td> </tr> <tr> < colspan="10"> Phosphorus - 03/26/17 05:38</th> </tr> <tr> <td> Phosphorus</td> <td>3.0 mg/dL</td> <td>2.4-4.7</td> </ tr> <tr> < colspan="10">eGFR - 03/26/17 05:38</th> </tr > <tr> <td>eGFR</td> <td>>60 mL/min</td> < td>>60</td> </tr> <tr> < colspan="10">CBC With Platelet No Differential - 03/27/17 [...] <td>WBC</td> <td>9.8 K /uL</td> <td>4.8-10.8</td> </tr> <tr> <th colspan="10">Renal Function Panel - 03/28/17 06:06</th> </tr> [...] <td>Sodium</td> <td>133 mEq/L</td> <td> 136-144</td> </tr> <tr> <th colspan="10">Magnesium - 06:06</th> </tr> <tr> <td>Magnesium</td> < [...] <th colspan="10"> Comprehensive Metabolic Panel (CMP) - 05/07/17 13:55</th> </tr> < tr> <td>Albumin</td> <td>3.8 g/dL</td> [...] <tr> <td>Sodium</td> <td>138 mEq/L</td> <td>136-144</td> </tr> <tr> < colspan="10">eGFR - 05/07/17 13:55</th> </tr> <tr> <td>eGFR</td> [...] <td>Pos 1+ NA</td> <td>Negative</td> </tr> <tr> <td>Specific [place]</td> <td>1.025 NA</td> <td>1.003-1.030</ td> </tr> <tr> <td>UA Collection type</td> <td> Clean Catch NA</td> <td /> </tr> <tr> <td> Urobilinogen</td> <td>4.0 mg/dL</td> <td><1.0</td> < /tr> <tr> < colspan="10">Urine Microscopic - 05/07/17 16:38</ th> </tr> <tr> <td>Bacteria</td> <td>Occasional NA</td> <td /> </tr> <tr> <td>Crystals</td> <td>Ca Ox NA</td> <td /> </tr> <tr> <td> Epithelial Cells</td> <td>2 /HPF</td> <td /> </tr> <tr> <td>RBC, Urine</td> <td>10 /HPF</td> <td>0-2 </td> </tr> <tr> <td>Urine Mucus</td> <td> Present NA</td> <td /> </tr> <tr> <td>WBC, Urine </td> <td>20 /HPF</td> <td>0-4</td> </tr> <tr> < colspan="10">Urine Drug Screen - 08/05/17 01:46</th> </tr> [...] < td>Negative NA</td> <td /> </tr> <tr> <th colspan="10">TSH with Reflex Free T4 - 08/05/17 [...] <td>Protein</td> <td>Negative NA</td> <td>Negative</td> </tr> <tr> <td>Specific [place]</td> <td><1.003 NA</td> <td> 1.003-1.030</td> </tr> <tr> <td>UA [...] <td> Sodium</td> <td>137 mEq/L</td> <td>136-144</td> </tr> <tr> <th colspan="10">eGFR - 08/27/17 14:10</th> </tr> <tr> <td>eGFR</td> <td>>60 mL/min</td> <td>& gt;60</td> </tr> <tr> <th colspan="10">Urine Microscopic - 09/02/17 15:15</th> </tr> <tr> [...] Negative NA</td> <td>Negative</td> </tr> <tr> < td>Specific [place]</td> <td>1.020 NA</td> <td>1.003-1.030</td > </tr> <tr> <td>UA [...] <td>Protein</td> <td>Negative NA</td> <td>Negative</td> </tr> <tr> <td>Specific [place]</ td> <td>1.030 NA</td> <td>1.003-1.030</td> </tr> <tr> <td>UA Collection type</td> <td>Clean Catch NA</td> <td /> </tr> <tr> <td>Urobilinogen</td> < td>Negative mg/dL</td> <td><1.0</td> </tr> <tr> < colspan="10">CBC With Platelet No Differential - 09/22/17 [...] NPT</td> <td>106 mg/dL</td> <td>70-100 </td> </tr> <tr> <th colspan="10">CBC With Platelet No Differential - 11/01/17 [...] <td>WBC</td> <td>7.3 K /uL</td> <td>4.8-10.8</td> </tr> <tr> < colspan="10">Renal Function Panel - 11/01/17 07:28</th> </tr> [...] <td> 0.0 10*3/uL</td> <td>0.0-0.1</td> </tr> <tr> < th colspan="10">Comprehensive metabolic panel - 12/13/17 13:18</th> </tr [...] mass/volume)</td> <td>4.2 g/dL</td> <td>3.2-4.5</td> </ tr> <tr> <th colspan="10">MOF0785 - 12/13/17 13:18</th> < /tr> <tr> <td>XBO1198</td> <td>55.5 ug/mL</td> <td>50.0-100.0</td> </tr> <tr> <th colspan="10"> [...] </text> <entry> <organizer moodCode="EVN" classCode= "BATTERY"> <templateId root="216.840.1.177713.10.20.22.4.1" /> <id nullFlavor="NA" /> <code codeSystem="local" code="CBCD" displayName="CBC W/ DIFF" /> <statusCode code="completed" /> <component> < observation moodCode="EVN" classCode="OBS"> <templateId root= "16.840.1.834343.10..22.4.2" /> <id nullFlavor="NA" /> < code codeSystem="local" code="CBCCOM" displayName="COMMENT" /> < statusCode code="completed" /> <effectiveTime value="295126343337" /> <value unit="" xsi:type="PQ" value="REVIEWED" /> < referenceRange> <observationRange> <text /> < /observationRange> </referenceRange> </observation> </ component> <component> <observation moodCode="EVN" classCode="OBS"> <templateId root="10.29.840.1.857766.1022.4.2" /> <id nullFlavor="NA" /> <code codeSystem="local" code="DB" displayName= "DOHLE BODIES" /> <statusCode code="completed" /> < effectiveTime value="471996175880" /> <value unit="" xsi:type="PQ" value="NOTED" /> <referenceRange> <observationRange> <text /> </observationRange> </referenceRange> </observation> </component> <component> <observation moodCode ="EVN" classCode="OBS"> <templateId root= "10.29.840.1.224844.10.4.2" /> <id nullFlavor="NA" /> < code codeSystem="local" code="GR#" displayName="GRANULOCYTE #" /> < statusCode code="completed" /> <effectiveTime value="" /> <value unit="k/cumm" xsi:type="PQ" value="16.6" /> < interpretationCode codeSystem="local" code="*" /> <referenceRange> <observationRange> <text>2.0-9.0</text> </ observationRange> </referenceRange> </observation> </ component> <component> <observation moodCode="EVN" classCode="OBS"> <templateId root="10.29.840.1.635406.10.2022.4.2" /> <id nullFlavor="NA" /> <code codeSystem="local" code="GR%" displayName= "GRANULOCYTE %" /> <statusCode code="completed" /> < effectiveTime value="" /> <value unit="%" xsi:type="PQ " value="91" /> <interpretationCode codeSystem="local" code="*" /> <referenceRange> <observationRange> <text>50-75</ text> </observationRange> </referenceRange> </ observation> </component> <component> <observation moodCode= "EVN" classCode="OBS"> <templateId root="10.29.840.1.108438.1022.4.2 " /> <id nullFlavor="NA" /> <code codeSystem="local" code="LY# " displayName="LYMPHOCYTE #" /> <statusCode code="completed" /> <effectiveTime value="596842300893" /> <value unit="k/cumm" xsi:type ="PQ" value="0.3" /> <interpretationCode codeSystem="local" code="*" / > <referenceRange> <observationRange> <text>1.0 -4.0</text> </observationRange> </referenceRange> </ observation> </component> <component> <observation moodCode= "EVN" classCode="OBS"> <templateId root="10.29.840.1.420483...4.2 " /> <id nullFlavor="NA" /> <code codeSystem="local" code="LY& #37;" displayName="LYMPHOCYTE %" /> <statusCode code="completed" / > <effectiveTime value="796078757203" /> <value unit="%" xsi:type="PQ" value="2" /> <interpretationCode codeSystem="local" code= "*" /> <referenceRange> <observationRange> < text>20-30</text> </observationRange> </referenceRange> </observation> </component> <component> <observation moodCode="EVN" classCode="OBS"> <templateId root= "10.29.830.1.168343.10..22.4.2" /> <id nullFlavor="NA" /> < code codeSystem="local" code="MCH" displayName="MEAN CELL HGB" /> < statusCode code="completed" /> <effectiveTime value="466322447902" /> <value unit="pg" xsi:type="PQ" value="27.3" /> <referenceRange > <observationRange> <text>27.0-33.0</text> < /observationRange> </referenceRange> </observation> </ component> <component> <observation moodCode="EVN" classCode="OBS"> <templateId root="16.840.1.089993.10...4.2" /> <id nullFlavor="NA" /> <code codeSystem="local" code="MCHC" displayName= "MEAN CELL HGB CONCENTRATION" /> <statusCode code="completed" /> <effectiveTime value="" /> <value unit="g/dL" xsi:type= "PQ" value="34.2" /> <referenceRange> <observationRange> <text>32.0-37.0</text> </observationRange> </ referenceRange> </observation> </component> <component> <observation moodCode="EVN" classCode="OBS"> <templateId root= "10.29.840.1.412714.10..22.4.2" /> <id nullFlavor="NA" /> < code codeSystem="local" code="MCV" displayName="MEAN CELL VOLUME" /> < statusCode code="completed" /> <effectiveTime value="241677408923" /> <value unit="fl" xsi:type="PQ" value="79.6" /> < interpretationCode codeSystem="local" code="*" /> <referenceRange> <observationRange> <text>80.0-100.0</text> </ observationRange> </referenceRange> </observation> </ component> <component> <observation moodCode="EVN" classCode="OBS"> <templateId root="16.840.1.347251.10.20.22.4.2" /> <id nullFlavor="NA" /> <code codeSystem="local" code="MO#" displayName= "MONOCYTE #" /> <statusCode code="completed" /> < effectiveTime value="258483164879" /> <value unit="k/cumm" xsi:type="PQ " value="1.3" /> <interpretationCode codeSystem="local" code="*" /> <referenceRange> <observationRange> <text>0.1-1.0 </text> </observationRange> </referenceRange> </ observation> </component> <component> <observation moodCode= "EVN" classCode="OBS"> <templateId root="16.840.1.948568.10..22.4.2 " /> <id nullFlavor="NA" /> <code codeSystem="local" code="MO& #37;" displayName="MONOCYTE %" /> <statusCode code="completed" /> <effectiveTime value="135692859384" /> <value unit="%" xsi :type="PQ" value="7" /> <interpretationCode codeSystem="local" code="* " /> <referenceRange> <observationRange> <text> 4-6</text> </observationRange> </referenceRange> </ observation> </component> <component> <observation moodCode= "EVN" classCode="OBS"> <templateId root="16.840.1.517319.10.20.22.4.2 " /> <id nullFlavor="NA" /> <code codeSystem="local" code="RBC " displayName="RED BLOOD CELL" /> <statusCode code="completed" /> <effectiveTime value="218007898864" /> <value unit="m/cumm" xsi: type="PQ" value="5.54" /> <referenceRange> <observationRange > <text>4.00-6.00</text> </observationRange> </ referenceRange> </observation> </component> <component> <observation moodCode="EVN" classCode="OBS"> <templateId root= "2.16.840.1.823202.10.20.22.4.2" /> <id nullFlavor="NA" /> < code codeSystem="local" code="RDW" displayName="RED CELL DISTRIBUTION WIDTH" /> <statusCode code="completed" /> <effectiveTime value= "481106483763" /> <value unit="%" xsi:type="PQ" value="13.5" /> <referenceRange> <observationRange> <text>11.0- 15.6</text> </observationRange> </referenceRange> </ observation> </component> <component> <observation moodCode= "EVN" classCode="OBS"> <templateId root="2.16.840.1.430592.10.20.22.4.2 " /> <id nullFlavor="NA" /> <code codeSystem="local" code="WBC " displayName="WHITE BLOOD CELL" /> <statusCode code="completed" /> <effectiveTime value="382484973045" /> <value unit="k/cumm" xsi: type="PQ" value="18.2" /> <interpretationCode codeSystem="local" code= "*" /> <referenceRange> <observationRange> < text>5.0-10.0</text> </observationRange> </referenceRange> </observation> </component> <component> <observation moodCode="EVN" classCode="OBS"> <templateId root= "216.840.1.171483.10...4.2" /> <id nullFlavor="NA" /> < code codeSystem="local" code="HGBT" displayName="HEMOGLOBIN" /> < statusCode code="completed" /> <effectiveTime value="722078552280" /> <value unit="gm/dL" xsi:type="PQ" value="15.1" /> < referenceRange> <observationRange> <text>14.0-18.0</text > </observationRange> </referenceRange> </observation > </component> <component> <observation moodCode="EVN" classCode="OBS"> <templateId root="216.840.1.553289...4.2" /> <id nullFlavor="NA" /> <code codeSystem="local" code="HCTT" displayName="HEMATOCRIT" /> <statusCode code="completed" /> < effectiveTime value="394373682504" /> <value unit="%" xsi:type="PQ " value="44.1" /> <referenceRange> <observationRange> <text>40.0-54.0</text> </observationRange> </ referenceRange> </observation> </component> <component> <observation moodCode="EVN" classCode="OBS"> <templateId root= "10.29.840.1.090669.10..22.4.2" /> <id nullFlavor="NA" /> < code codeSystem="local" code="PLT" displayName="PLATELET COUNT" /> < statusCode code="completed" /> <effectiveTime value="060207887987" /> <value unit="k/cumm" xsi:type="PQ" value="102" /> < interpretationCode codeSystem="local" code="*" /> <referenceRange> <observationRange> <text>150-400</text> </ observationRange> </referenceRange> </observation> </ component> </organizer> </entry> <entry> <organizer moodCode="EVN" classCode="BATTERY"> <templateId root="16.840.1.358861...4.1" /> <id nullFlavor="NA" /> <code codeSystem="local" code="ALC" displayName ="ALCOHOL (ETHANOL) SERUM" /> <statusCode code="completed" /> < component> <observation moodCode="EVN" classCode="OBS"> < templateId root="16.840.1.689039.10...4.2" /> <id nullFlavor="NA " /> <code codeSystem="local" code="ALC" displayName="ALCOHOL (ETHANOL ) SERUM" /> <statusCode code="completed" /> <effectiveTime value="895182705667" /> <value unit="mg/dL" xsi:type="PQ" value="< 10" /> <referenceRange> <observationRange> < text> < 10</text> </observationRange> </referenceRange> </observation> </component> </organizer> </entry> <entry> < organizer moodCode="EVN" classCode="BATTERY"> <templateId root= "16.840.1.180104.10.4.1" /> <id nullFlavor="NA" /> <code codeSystem="local" code="iCHEM8" displayName="CHEM/HEM PROFILE-BEDSIDE" /> <statusCode code="completed" /> <component> <observation moodCode= "EVN" classCode="OBS"> <templateId root="10.29.840.1.871559.22.4.2 " /> <id nullFlavor="NA" /> <code codeSystem="local" code="K" displayName="POTASSIUM" /> <statusCode code="completed" /> < effectiveTime value="191890041014" /> <value unit="mmol/L" xsi:type="PQ " value="3.5" /> <referenceRange> <observationRange> <text>3.5-5.3</text> </observationRange> </ referenceRange> </observation> </component> <component> <observation moodCode="EVN" classCode="OBS"> <templateId root= "2.16.840.1.245585.07.02.22.4.2" /> <id nullFlavor="NA" /> < code codeSystem="local" code="CMETHOD" displayName="METHOD" /> < statusCode code="completed" /> <effectiveTime value="967154294742" /> <value unit="" xsi:type="PQ" value="Bedside" /> < referenceRange> <observationRange> <text /> < /observationRange> </referenceRange> </observation> </ component> <component> <observation moodCode="EVN" classCode="OBS"> <templateId root="2.16.840.1.627329.07.02.22.4.2" /> <id nullFlavor="NA" /> <code codeSystem="local" code="GAP" displayName= "ANION GAP" /> <statusCode code="completed" /> <effectiveTime value="740741020237" /> <value unit="mmol/L" xsi:type="PQ" value="19" / > <referenceRange> <observationRange> <text>10- 20</text> </observationRange> </referenceRange> </ observation> </component> <component> <observation moodCode= "EVN" classCode="OBS"> <templateId root="16.840.1.128085.10..22.4.2 " /> <id nullFlavor="NA" /> <code codeSystem="local" code= "HMETHOD" displayName="METHOD" /> <statusCode code="completed" /> <effectiveTime value="192555948114" /> <value unit="" xsi:type="PQ " value="Bedside" /> <referenceRange> <observationRange> <text /> </observationRange> </referenceRange> </observation> </component> <component> <observation moodCode="EVN" classCode="OBS"> <templateId root= "10.29.840.1.798254...4.2" /> <id nullFlavor="NA" /> < code codeSystem="local" code="GLU" displayName="GLUCOSE" /> < statusCode code="completed" /> <effectiveTime value="352196344685" /> <value unit="mg/dL" xsi:type="PQ" value="119" /> < interpretationCode codeSystem="local" code="*" /> <referenceRange> <observationRange> <text>70-99</text> </ observationRange> </referenceRange> </observation> </ component> <component> <observation moodCode="EVN" classCode="OBS"> <templateId root="10.29.840.1.944663...4.2" /> <id nullFlavor="NA" /> <code codeSystem="local" code="BUN" displayName= "BLOOD UREA NITROGEN" /> <statusCode code="completed" /> < effectiveTime value="459805257231" /> <value unit="mg/dL" xsi:type="PQ " value="40" /> <interpretationCode codeSystem="local" code="*" /> <referenceRange> <observationRange> <text>7-20</ text> </observationRange> </referenceRange> </ observation> </component> <component> <observation moodCode= "EVN" classCode="OBS"> <templateId root="16.840.1.576123.10.20.22.4.2 " /> <id nullFlavor="NA" /> <code codeSystem="local" code= "CREAT" displayName="CREATININE" /> <statusCode code="completed" /> <effectiveTime value="499020676872" /> <value unit="mg/dL" xsi: type="PQ" value="1.5" /> <interpretationCode codeSystem="local" code="* " /> <referenceRange> <observationRange> <text> 0.7-1.3</text> </observationRange> </referenceRange> </observation> </component> <component> <observation moodCode= "EVN" classCode="OBS"> <templateId root="840.1.578136.10..22.4.2 " /> <id nullFlavor="NA" /> <code codeSystem="local" code= "HGBT" displayName="HEMOGLOBIN" /> <statusCode code="completed" /> <effectiveTime value="848571511243" /> <value unit="gm/dL" xsi: type="PQ" value="15.3" /> <referenceRange> <observationRange > <text>14.0-18.0</text> </observationRange> </ referenceRange> </observation> </component> <component> <observation moodCode="EVN" classCode="OBS"> <templateId root= "10.29.840.1.948310.10.20.22.4.2" /> <id nullFlavor="NA" /> < code codeSystem="local" code="HCTT" displayName="HEMATOCRIT" /> < statusCode code="completed" /> <effectiveTime value="533821879123" /> <value unit="%" xsi:type="PQ" value="45.0" /> < referenceRange> <observationRange> <text>40.0-54.0</text > </observationRange> </referenceRange> </observation > </component> <component> <observation moodCode="EVN" classCode="OBS"> <templateId root="216.840.1.288150.10.20.22.4.2" /> <id nullFlavor="NA" /> <code codeSystem="local" code="NA" displayName="SODIUM" /> <statusCode code="completed" /> < effectiveTime value="186823435324" /> <value unit="mmol/L" xsi:type="PQ " value="131" /> <interpretationCode codeSystem="local" code="*" /> <referenceRange> <observationRange> <text>135-148 </text> </observationRange> </referenceRange> </ observation> </component> <component> <observation moodCode= "EVN" classCode="OBS"> <templateId root="216.840.1.154447.10.20.22.4.2 " /> <id nullFlavor="NA" /> <code codeSystem="local" code="CL " displayName="CHLORIDE" /> <statusCode code="completed" /> < effectiveTime value="009931812186" /> <value unit="mmol/L" xsi:type="PQ " value="96" /> <interpretationCode codeSystem="local" code="*" /> <referenceRange> <observationRange> <text>98-110</ text> </observationRange> </referenceRange> </ observation> </component> <component> <observation moodCode= "EVN" classCode="OBS"> <templateId root="[id number] " /> <id nullFlavor="NA" /> <code codeSystem="local" code="CO2 " displayName="CARBON DIOXIDE" /> <statusCode code="completed" /> <effectiveTime value="[id number]" /> <value unit="mmol/L" xsi: type="PQ" value="21" /> <referenceRange> <observationRange> <text>21-32</text> </observationRange> </ referenceRange> </observation> </component> <component> <observation moodCode="EVN" classCode="OBS"> <templateId root= "[id number]" /> <id nullFlavor="NA" /> < code codeSystem="local" code="CAION" displayName="CALCIUM IONIZED" /> < statusCode code="completed" /> <effectiveTime value="[id number]" /> <value unit="mg/dL" xsi:type="PQ" value="4.7" /> < referenceRange> <observationRange> <text>4.5-5.3</text> </observationRange> </referenceRange> </observation > </component> </organizer> </entry> <entry> <organizer moodCode= "EVN" classCode="BATTERY"> <templateId root="[id number] " /> <id nullFlavor="NA" /> <code codeSystem="local" code="BC" displayName="BLOOD CULTURE" /> <statusCode code="completed" /> < component> <observation moodCode="EVN" classCode="OBS"> < templateId root="840.1.924947.22.4.2" /> <id nullFlavor="NA " /> <code codeSystem="local" code="MB" displayName="Microbiology" /> <statusCode code="completed" /> <effectiveTime value= "[id number]" /> <value xsi:type="ST" value="<pre><b>BLOOD CULTURE</b > See BelowIs this a Possible Sepsis/Sepsis patient? YesBLOOD CULTURE(F) Jus Date/Time: 09/28/2016 13:05 Richie Date/ Time: 09/30/2016 07:53SOURCE: BLOODSPEC DESC: PERIPHERALPOSITIVE SMEAR CALLED AT 0654, 09/29/16 BY [facility] TO . AT PHONE #. AND READ BACK.POSITIVE SMEAR (Abnormal)GRAM NEGATIVE BACILLI (Abnormal)HOURS TO DETECTION9:52Organism # 1 ESCHERICHIA COLICOMMENTS .FOR SUSCEPTIBILITY SEE PREVIOUS REPORT [facility] [facility] [address]</pre>" /> <referenceRange > <observationRange> <text /> </ observationRange> </referenceRange> </observation> </ component> </organizer> </entry> <entry> <organizer moodCode="EVN" classCode="BATTERY"> <templateId root="2.16.840.1.392557.10..22.4.1" /> <id nullFlavor="NA" /> <code codeSystem="local" code="LACT" displayName="LACTIC ACID" /> <statusCode code="completed" /> < component> <observation moodCode="EVN" classCode="OBS"> < templateId root="2.16.840.1.498519.10..22.4.2" /> <id nullFlavor="NA " /> <code codeSystem="local" code="LACT" displayName="LACTIC ACID" /> <statusCode code="completed" /> <effectiveTime value= "[id number]" /> <value unit="mmol/L" xsi:type="PQ" value="2.3" /> <interpretationCode codeSystem="local" code="*" /> < referenceRange> <observationRange> <text>0.5-2.0</text> </observationRange> </referenceRange> </observation > </component> </organizer> </entry> <entry> <organizer moodCode= "EVN" classCode="BATTERY"> <templateId root="2.16.840.1.086377.10.20.22.4.1 " /> <id nullFlavor="NA" /> <code codeSystem="local" code="BC" displayName="BLOOD CULTURE" /> <statusCode code="completed" /> < component> <observation moodCode="EVN" classCode="OBS"> < templateId root="2.16.840.1.592582.10.20.22.4.2" /> <id nullFlavor="NA " /> <code codeSystem="local" code="MB" displayName="Microbiology" /> <statusCode code="completed" /> <effectiveTime value= "869270198123" /> <value xsi:type="ST" value="<pre><b> BLOOD CULTURE</b> See BelowIs this a Possible Sepsis/Sepsis patient? YesBLOOD CULTURE(F) Jus Date/Time: 09/28/2016 13:09 Richie Date/Time: 09/30/2016 07:52SOURCE: BLOODSPEC DESC: PERIPHERALPOSITIVE SMEAR CALLED AT 0113, 09/29/16 BY [facility] TO [facility] AT PHONE #[id number] AND READ BACK.POSITIVE SMEAR (Abnormal)GRAM NEGATIVE BACILLI ( Abnormal)HOURS TO MOAVOCBBQ30.1Organism #1 ESCHERICHIA COLI InterpAMPICILLIN VITEK <=2 SAMPICILLIN/SULBACTAM VITEK <=2 SCEFEPIME VITEK &lt ;=1 SCEFTRIAXONE VITEK <=1 SCIPROFLOXACIN VITEK <=0.25 SGENTAMICIN VITEK <=1 SPIPERACILLIN/TAZOBZCTAM VITEK <=4 STRIMETH/SULFA VITEK &lt ;=[address] [address]</pre>" / > <referenceRange> <observationRange> <text /> </observationRange> </referenceRange> </observation > </component> </organizer> </entry> <entry> <organizer moodCode= "EVN" classCode="BATTERY"> <templateId root="2.16.840.1.259920.10.20.22.4.1 " /> <id nullFlavor="NA" /> <code codeSystem="local" code="INFLAAG" displayName="INFLUENZA A OIA - INFLUENZA B OIA" /> <statusCode code= "completed" /> <component> <observation moodCode="EVN" classCode= "OBS"> <templateId root="2.16.840.1.822204.10.20.22.4.2" /> < id nullFlavor="NA" /> <code codeSystem="local" code="MB" displayName= "Microbiology" /> <statusCode code="completed" /> < effectiveTime value="[id number]" /> <value xsi:type="ST" value="<pre> <b>INFLUENZA A OIA - INFLUENZA B OIA</b> See BelowINFLUENZA A OIA(F) Jus Date/Time: 09/28/2016 13:58 Richie Date/Time: 09/28/2016 14:54SOURCE: NASOPHARYNGEALSPEC DESC: A negative result does not exclude influenza virus infectionINFLUENZA A OIANEGATIVE FOR INFLUENZA [address] [id number] BelowINFLUENZA B OIA(F ) Jus Date/Time: 09/28/2016 13:58 Richie Date/Time: 09/28/2016 14:54SOURCE: NASOPHARYNGEALSPEC DESC: INFLUENZA B OIANEGATIVE FOR INFLUENZA [place] [address] [place] [address]< /pre>" /> <referenceRange> <observationRange> < text /> </observationRange> </referenceRange> </ observation> </component> </organizer> </entry> <entry> <organizer moodCode="EVN" classCode="BATTERY"> <templateId root= "16.840.1.144364.10.4.1" /> <id nullFlavor="NA" /> <code codeSystem="local" code="UA" displayName="URINALYSIS, ROUTINE" /> < statusCode code="completed" /> <component> <observation moodCode= "EVN" classCode="OBS"> <templateId root="10.29.840.1.171271.07.02.22.4.2 " /> <id nullFlavor="NA" /> <code codeSystem="local" code= "LEUESU" displayName="UA LEUKOCYTE ESTERASE DIPSTICK" /> <statusCode code="completed" /> <effectiveTime value="" /> < value unit="" xsi:type="PQ" value="TRACE" /> <interpretationCode codeSystem="local" code="*" /> <referenceRange> < observationRange> <text>NEGATIVE</text> </ observationRange> </referenceRange> </observation> </ component> <component> <observation moodCode="EVN" classCode="OBS"> <templateId root="10.29.840.1.589455.07.02.22.4.2" /> <id nullFlavor="NA" /> <code codeSystem="local" code="NITRIU" displayName= "UA NITRITE DIPSTICK" /> <statusCode code="completed" /> < effectiveTime value="" /> <value unit="" xsi:type="PQ" value="POSITIVE" /> <interpretationCode codeSystem="local" code="*" /> <referenceRange> <observationRange> <text> NEGATIVE</text> </observationRange> </referenceRange> </observation> </component> <component> <observation moodCode ="EVN" classCode="OBS"> <templateId root= "216.840.1.495059.10.4.2" /> <id nullFlavor="NA" /> < code codeSystem="local" code="PROTEIU" displayName="UA PROTEIN DIPSTICK" /> <statusCode code="completed" /> <effectiveTime value= "" /> <value unit="" xsi:type="PQ" value="TRACE" /> <interpretationCode codeSystem="local" code="*" /> <referenceRange> <observationRange> <text>NEGATIVE</text> </ observationRange> </referenceRange> </observation> </ component> <component> <observation moodCode="EVN" classCode="OBS"> <templateId root="10.29.840.1.988687.07.02.224.2" /> <id nullFlavor="NA" /> <code codeSystem="local" code="DGLUU" displayName= "UA GLUCOSE DIPSTICK" /> <statusCode code="completed" /> < effectiveTime value="" /> <value unit="" xsi:type="PQ" value="NEGATIVE" /> <referenceRange> <observationRange> <text>NEGATIVE</text> </observationRange> </ referenceRange> </observation> </component> <component> <observation moodCode="EVN" classCode="OBS"> <templateId root= "10.29.840.1.709270.07.02.22.4.2" /> <id nullFlavor="NA" /> < code codeSystem="local" code="KETONU" displayName="UA KETONE DIPSTICK" /> <statusCode code="completed" /> <effectiveTime value=" " /> <value unit="" xsi:type="PQ" value="1+" /> < interpretationCode codeSystem="local" code="*" /> <referenceRange> <observationRange> <text>NEGATIVE</text> </ observationRange> </referenceRange> </observation> </ component> <component> <observation moodCode="EVN" classCode="OBS"> <templateId root="16.840.1.089242.10..4.2" /> <id nullFlavor="NA" /> <code codeSystem="local" code="UROBILU" displayName= "UA UROBILINOGEN DIPSTICK" /> <statusCode code="completed" /> <effectiveTime value="" /> <value unit="" xsi:type="PQ" value="2+" /> <interpretationCode codeSystem="local" code="*" /> <referenceRange> <observationRange> <text>NORMAL</ text> </observationRange> </referenceRange> </ observation> </component> <component> <observation moodCode= "EVN" classCode="OBS"> <templateId root="16.840.1.526885.10...4.2 " /> <id nullFlavor="NA" /> <code codeSystem="local" code= "BILU" displayName="UA BILIRUBIN DIPSTICK" /> <statusCode code= "completed" /> <effectiveTime value="" /> <value unit="" xsi:type="PQ" value="POSITIVE" /> <interpretationCode codeSystem="local" code="*" /> <referenceRange> < observationRange> <text>NEGATIVE</text> </ observationRange> </referenceRange> </observation> </ component> <component> <observation moodCode="EVN" classCode="OBS"> <templateId root="10.29.840.1.616792.10...4.2" /> <id nullFlavor="NA" /> <code codeSystem="local" code="SURY" displayName="UA BLOOD DIPSTICK" /> <statusCode code="completed" /> < effectiveTime value="" /> <value unit="" xsi:type="PQ" value="1+" /> <interpretationCode codeSystem="local" code="*" /> <referenceRange> <observationRange> <text>NEGATIVE</ text> </observationRange> </referenceRange> </ observation> </component> <component> <observation moodCode= "EVN" classCode="OBS"> <templateId root="840.1.433364.07.02.22.4.2 " /> <id nullFlavor="NA" /> <code codeSystem="local" code= "SPGRU" displayName="UA SPECIFIC GRAVITY" /> <statusCode code= "completed" /> <effectiveTime value="" /> <value unit="" xsi:type="PQ" value="1.029" /> <interpretationCode codeSystem= "local" code="*" /> <referenceRange> <observationRange> <text>1.015-1.025</text> </observationRange> </ referenceRange> </observation> </component> <component> <observation moodCode="EVN" classCode="OBS"> <templateId root= "10.29.840.1.599337.10...4.2" /> <id nullFlavor="NA" /> < code codeSystem="local" code="CHUCK" displayName="UR PH" /> <statusCode code="completed" /> <effectiveTime value="" /> < value unit="" xsi:type="PQ" value="5.0" /> <referenceRange> <observationRange> <text>5.0-7.0</text> </ observationRange> </referenceRange> </observation> </ component> </organizer> </entry> <entry> <organizer moodCode="EVN" classCode="BATTERY"> <templateId root="16.840.1.295647.10..22.4.1" /> <id nullFlavor="NA" /> <code codeSystem="local" code="UAMICRO" displayName="UA MICROSCOPIC" /> <statusCode code="completed" /> < component> <observation moodCode="EVN" classCode="OBS"> < templateId root="216.840.1.385038.10...4.2" /> <id nullFlavor="NA " /> <code codeSystem="local" code="AMORPU" displayName="UA AMORPHOUS SEDIMENT" /> <statusCode code="completed" /> <effectiveTime value="" /> <value unit="" xsi:type="PQ" value="2+" /> <referenceRange> <observationRange> <text /> </observationRange> </referenceRange> </observation> </component> <component> <observation moodCode="EVN" classCode= "OBS"> <templateId root="16.840.1.146018.07.02.22.4.2" /> < id nullFlavor="NA" /> <code codeSystem="local" code="BACU" displayName= "UA BACTERIA" /> <statusCode code="completed" /> < effectiveTime value="" /> <value unit="" xsi:type="PQ" value="1+" /> <interpretationCode codeSystem="local" code="*" /> <referenceRange> <observationRange> <text>NEGATIVE</ text> </observationRange> </referenceRange> </ observation> </component> <component> <observation moodCode= "EVN" classCode="OBS"> <templateId root="216.840.1.300525.10.22.4.2 " /> <id nullFlavor="NA" /> <code codeSystem="local" code= "RBCU" displayName="UA RBC" /> <statusCode code="completed" /> <effectiveTime value="" /> <value unit="rbc/hpf" xsi:type ="PQ" value="5-10" /> <interpretationCode codeSystem="local" code="*" / > <referenceRange> <observationRange> <text>0 - 3</text> </observationRange> </referenceRange> </ observation> </component> <component> <observation moodCode= "EVN" classCode="OBS"> <templateId root="16.840.1.291890.07.02.224.2 " /> <id nullFlavor="NA" /> <code codeSystem="local" code= "UAVOL" displayName="UA VOLUME FOR EXAM" /> <statusCode code="completed " /> <effectiveTime value="" /> <value unit="mL" xsi:type="PQ" value="12.0" /> <referenceRange> < observationRange> <text>(12mL STD)</text> </ observationRange> </referenceRange> </observation> </ component> <component> <observation moodCode="EVN" classCode="OBS"> <templateId root="216.840.1.152990.10..22.4.2" /> <id nullFlavor="NA" /> <code codeSystem="local" code="WBCU" displayName=" UA WBC" /> <statusCode code="completed" /> <effectiveTime value="" /> <value unit="wbc/hpf" xsi:type="PQ" value="0-1 " /> <referenceRange> <observationRange> <text> 0 - 5</text> </observationRange> </referenceRange> </ observation> </component> </organizer> </entry> <entry> <organizer moodCode="EVN" classCode="BATTERY"> <templateId root= "216.840.1.348966.10..22.4.1" /> <id nullFlavor="NA" /> <code codeSystem="local" code="DRUGAB" displayName="UR DRUGS OF ABUSE SCREEN" /> <statusCode code="completed" /> <component> <observation moodCode= "EVN" classCode="OBS"> <templateId root="216.840.1.439339.10..22.4.2 " /> <id nullFlavor="NA" /> <code codeSystem="local" code= "AMPHU" displayName="UR AMPHETAMINES SCREEN" /> <statusCode code= "completed" /> <effectiveTime value="017410805780" /> <value unit="" xsi:type="PQ" value="NEG (<1000 ng/mL)" /> <referenceRange > <observationRange> <text>NEGATIVE</text> </ observationRange> </referenceRange> </observation> </ component> <component> <observation moodCode="EVN" classCode="OBS"> <templateId root="216.840.1.329228.10..22.4.2" /> <id nullFlavor="NA" /> <code codeSystem="local" code="BARBU" displayName= "UR BARBITURATE SCREEN" /> <statusCode code="completed" /> < effectiveTime value="228228142710" /> <value unit="" xsi:type="PQ" value="NEG (< 200 ng/mL)" /> <referenceRange> < observationRange> <text>NEGATIVE</text> </ observationRange> </referenceRange> </observation> </ component> <component> <observation moodCode="EVN" classCode="OBS"> <templateId root="216.840.1.949207.10..22.4.2" /> <id nullFlavor="NA" /> <code codeSystem="local" code="DAUCOMMENT" displayName="DRUGS OF ABUSE SCREEN COMMENT" /> <statusCode code= "completed" /> <effectiveTime value="" /> <value unit="" xsi:type="PQ" value="" /> <referenceRange> < observationRange> <text /> </observationRange> </referenceRange> </observation> </component> <component> <observation moodCode="EVN" classCode="OBS"> <templateId root= "16.840.1.653731.10..4.2" /> <id nullFlavor="NA" /> < code codeSystem="local" code="OPIU" displayName="UR OPIATES SCREEN" /> <statusCode code="completed" /> <effectiveTime value="499650512874" /> <value unit="" xsi:type="PQ" value="NEG (< 300 ng/mL)" /> <referenceRange> <observationRange> <text>NEGATIVE</ text> </observationRange> </referenceRange> </ observation> </component> <component> <observation moodCode= "EVN" classCode="OBS"> <templateId root="216.840.1.620846.10...4.2 " /> <id nullFlavor="NA" /> <code codeSystem="local" code= "PCPU" displayName="UR PHENCYCLIDINE (PCP) SCREEN" /> <statusCode code= "completed" /> <effectiveTime value="718819992003" /> <value unit="" xsi:type="PQ" value="NEG (< 25 ng/mL)" /> <referenceRange > <observationRange> <text>NEGATIVE</text> </ observationRange> </referenceRange> </observation> </ component> <component> <observation moodCode="EVN" classCode="OBS"> <templateId root="2.16.840.1.600392.10..22.4.2" /> <id nullFlavor="NA" /> <code codeSystem="local" code="THCU" displayName=" UR CANNABINOIDS (THC) SCREEN" /> <statusCode code="completed" /> <effectiveTime value="875595199041" /> <value unit="" xsi:type="PQ " value="NEG (< 50 ng/mL)" /> <referenceRange> < observationRange> <text>NEGATIVE</text> </ observationRange> </referenceRange> </observation> </ component> <component> <observation moodCode="EVN" classCode="OBS"> <templateId root="2.16.840.1.841267.10...4.2" /> <id nullFlavor="NA" /> <code codeSystem="local" code="COCAU" displayName= "UR COCAINE METABOLITE SCREEN" /> <statusCode code="completed" /> <effectiveTime value="988517343060" /> <value unit="" xsi:type="PQ " value="NEG (< 300 ng/mL)" /> <referenceRange> < observationRange> <text>NEGATIVE</text> </ observationRange> </referenceRange> </observation> </ component> <component> <observation moodCode="EVN" classCode="OBS"> <templateId root="2.16.840.1.841343.10..22.4.2" /> <id nullFlavor="NA" /> <code codeSystem="local" code="METHU" displayName= "UR METHADONE SCREEN" /> <statusCode code="completed" /> < effectiveTime value="" /> <value unit="" xsi:type="PQ" value="NEG (< 300 ng/mL)" /> <referenceRange> < observationRange> <text>NEGATIVE</text> </ observationRange> </referenceRange> </observation> </ component> <component> <observation moodCode="EVN" classCode="OBS"> <templateId root="10.29.840.1.136924.07.02.22.4.2" /> <id nullFlavor="NA" /> <code codeSystem="local" code="BENZU" displayName= "UR BENZODIAZEPINE SCREEN" /> <statusCode code="completed" /> <effectiveTime value="" /> <value unit="" xsi:type="PQ" value="NEG (< 200 ng/mL)" /> <referenceRange> < observationRange> <text>NEGATIVE</text> </ observationRange> </referenceRange> </observation> </ component> </organizer> </entry> <entry> <organizer moodCode="EVN" classCode="BATTERY"> <templateId root="840.1.116204.07.02.22.4.1" /> <id nullFlavor="NA" /> <code codeSystem="local" code="CBCWD" displayName="CBC With Platelet and Differential" /> <statusCode code= "completed" /> <component> <observation moodCode="EVN" classCode= "OBS"> <templateId root="10.29.840.1.907856.10.4.2" /> < id nullFlavor="NA" /> <code codeSystem="local" code="ABASR" displayName ="Absolute Basophils" /> <statusCode code="completed" /> < effectiveTime value="085169160594" /> <value unit="10*3/uL" xsi:type= "PQ" value="0.01" /> <referenceRange> <observationRange> <text>0.00-0.20</text> </observationRange> </ referenceRange> </observation> </component> <component> <observation moodCode="EVN" classCode="OBS"> <templateId root= "216.840.1.421570.10.20.22.4.2" /> <id nullFlavor="NA" /> < code codeSystem="local" code="AEOSR" displayName="Absolute Eosinophils" /> <statusCode code="completed" /> <effectiveTime value="888237353507 " /> <value unit="10*3/uL" xsi:type="PQ" value="0.02" /> < referenceRange> <observationRange> <text>0.00-0.50</text > </observationRange> </referenceRange> </observation > </component> <component> <observation moodCode="EVN" classCode="OBS"> <templateId root="216.840.1.474074.10.20.22.4.2" /> <id nullFlavor="NA" /> <code codeSystem="local" code="ALYMR" displayName="Absolute Lymphocytes" /> <statusCode code="completed" /> <effectiveTime value="454158458577" /> <value unit="10*3/uL" xsi:type="PQ" value="1.14" /> <referenceRange> < observationRange> <text>0.80-3.30</text> </ observationRange> </referenceRange> </observation> </ component> <component> <observation moodCode="EVN" classCode="OBS"> <templateId root="10.29.840.1.963238.10.2022.4.2" /> <id nullFlavor="NA" /> <code codeSystem="local" code="AMONR" displayName= "Absolute Monocytes" /> <statusCode code="completed" /> < effectiveTime value="358210355469" /> <value unit="10*3/uL" xsi:type= "PQ" value="1.47" /> <interpretationCode codeSystem="local" code="*" / > <referenceRange> <observationRange> <text> 0.30-1.00</text> </observationRange> </referenceRange> </observation> </component> <component> <observation moodCode="EVN" classCode="OBS"> <templateId root= "840.1.100497.1022.4.2" /> <id nullFlavor="NA" /> < code codeSystem="local" code="ASEGR" displayName="Absolute Neutrophils" /> <statusCode code="completed" /> <effectiveTime value="824883805260 " /> <value unit="10*3/uL" xsi:type="PQ" value="14.66" /> < interpretationCode codeSystem="local" code="*" /> <referenceRange> <observationRange> <text>1.90-7.00</text> </ observationRange> </referenceRange> </observation> </ component> <component> <observation moodCode="EVN" classCode="OBS"> <templateId root="840.1.830641.10.2022.4.2" /> <id nullFlavor="NA" /> <code codeSystem="local" code="BASOR" displayName= "Basophils" /> <statusCode code="completed" /> <effectiveTime value="948413288502" /> <value unit="%" xsi:type="PQ" value="0" /> <referenceRange> <observationRange> <text>0-2< /text> </observationRange> </referenceRange> </ observation> </component> <component> <observation moodCode= "EVN" classCode="OBS"> <templateId root="10.29.840.1.721378.10.20.22.4.2 " /> <id nullFlavor="NA" /> <code codeSystem="local" code= "EOSR" displayName="Eosinophils" /> <statusCode code="completed" /> <effectiveTime value="" /> <value unit="%" xsi: type="PQ" value="0" /> <referenceRange> <observationRange> <text>0-4</text> </observationRange> </ referenceRange> </observation> </component> <component> <observation moodCode="EVN" classCode="OBS"> <templateId root= "10.29.840.1.279885.10..22.4.2" /> <id nullFlavor="NA" /> < code codeSystem="local" code="HCT" displayName="HCT" /> <statusCode code="completed" /> <effectiveTime value="507410666468" /> < value unit="%" xsi:type="PQ" value="37.8" /> <interpretationCode codeSystem="local" code="*" /> <referenceRange> < observationRange> <text>42.0-52.0</text> </ observationRange> </referenceRange> </observation> </ component> <component> <observation moodCode="EVN" classCode="OBS"> <templateId root="10.29.840.1.412016.10.20.22.4.2" /> <id nullFlavor="NA" /> <code codeSystem="local" code="HGB" displayName="HGB " /> <statusCode code="completed" /> <effectiveTime value= "357142458250" /> <value unit="g/dL" xsi:type="PQ" value="13.1" /> <interpretationCode codeSystem="local" code="*" /> < referenceRange> <observationRange> <text>14.0-18.0</text > </observationRange> </referenceRange> </observation > </component> <component> <observation moodCode="EVN" classCode="OBS"> <templateId root="216.840.1.818497.10..22.4.2" /> <id nullFlavor="NA" /> <code codeSystem="local" code="IMGA" displayName="Immature Granulocytes" /> <statusCode code="completed" /> <effectiveTime value="199915636779" /> <value unit="%" xsi:type="PQ" value="1.4" /> <interpretationCode codeSystem="local" code="*" /> <referenceRange> <observationRange> <text>0.0-1.0</text> </observationRange> </referenceRange > </observation> </component> <component> <observation moodCode="EVN" classCode="OBS"> <templateId root= "2.16.840.1.736129.10..22.4.2" /> <id nullFlavor="NA" /> < code codeSystem="local" code="LYMPR" displayName="Lymphocytes" /> < statusCode code="completed" /> <effectiveTime value="" /> <value unit="%" xsi:type="PQ" value="7" /> < interpretationCode codeSystem="local" code="*" /> <referenceRange> <observationRange> <text>20-46</text> </ observationRange> </referenceRange> </observation> </ component> <component> <observation moodCode="EVN" classCode="OBS"> <templateId root="16.840.1.697676.10.22.4.2" /> <id nullFlavor="NA" /> <code codeSystem="local" code="MCH" displayName="MCH " /> <statusCode code="completed" /> <effectiveTime value= "" /> <value unit="pg" xsi:type="PQ" value="27.6" /> <referenceRange> <observationRange> <text>27.0-32.0< /text> </observationRange> </referenceRange> </ observation> </component> <component> <observation moodCode= "EVN" classCode="OBS"> <templateId root="10.29.840.1.262631.10.4.2 " /> <id nullFlavor="NA" /> <code codeSystem="local" code= "MCHC" displayName="MCHC" /> <statusCode code="completed" /> < effectiveTime value="" /> <value unit="g/dL" xsi:type="PQ" value="34.7" /> <referenceRange> <observationRange> <text>32.0-36.0</text> </observationRange> </ referenceRange> </observation> </component> <component> <observation moodCode="EVN" classCode="OBS"> <templateId root= "10.29.840.1.132755.10.20.22.4.2" /> <id nullFlavor="NA" /> < code codeSystem="local" code="MCV" displayName="MCV" /> <statusCode code="completed" /> <effectiveTime value="" /> < value unit="fL" xsi:type="PQ" value="79.7" /> <interpretationCode codeSystem="local" code="*" /> <referenceRange> < observationRange> <text>82.0-99.0</text> </ observationRange> </referenceRange> </observation> </ component> <component> <observation moodCode="EVN" classCode="OBS"> <templateId root="10.29.840.1.748558.10.20.22.4.2" /> <id nullFlavor="NA" /> <code codeSystem="local" code="MONOR" displayName= "Monocytes" /> <statusCode code="completed" /> <effectiveTime value="072179472166" /> <value unit="%" xsi:type="PQ" value="8" /> <referenceRange> <observationRange> <text>4-11 </text> </observationRange> </referenceRange> </ observation> </component> <component> <observation moodCode= "EVN" classCode="OBS"> <templateId root="840.1.369700.10..22.4.2 " /> <id nullFlavor="NA" /> <code codeSystem="local" code="MPV " displayName="MPV" /> <statusCode code="completed" /> < effectiveTime value="229149077878" /> <value unit="fL" xsi:type="PQ" value="8.7" /> <interpretationCode codeSystem="local" code="*" /> <referenceRange> <observationRange> <text>9.4-12.3< /text> </observationRange> </referenceRange> </ observation> </component> <component> <observation moodCode= "EVN" classCode="OBS"> <templateId root="10.29.840.1.564307.10.20.22.4.2 " /> <id nullFlavor="NA" /> <code codeSystem="local" code= "SEGR" displayName="Neutrophils" /> <statusCode code="completed" /> <effectiveTime value="" /> <value unit="%" xsi: type="PQ" value="84" /> <interpretationCode codeSystem="local" code="* " /> <referenceRange> <observationRange> <text> 51-75</text> </observationRange> </referenceRange> </ observation> </component> <component> <observation moodCode= "EVN" classCode="OBS"> <templateId root="216.840.1.255277.10.20.22.4.2 " /> <id nullFlavor="NA" /> <code codeSystem="local" code= "NRBCA" displayName="Nucleated RBC Automated" /> <statusCode code= "completed" /> <effectiveTime value="" /> <value unit="/100WBC" xsi:type="PQ" value="0.0" /> <referenceRange> <observationRange> <text /> </observationRange> </referenceRange> </observation> </component> <component> <observation moodCode="EVN" classCode="OBS"> <templateId root= "16.840.1.464783.10.20.22.4.2" /> <id nullFlavor="NA" /> < code codeSystem="local" code="PLT" displayName="Platelet Count" /> < statusCode code="completed" /> <effectiveTime value="" /> <value unit="K/uL" xsi:type="PQ" value="336" /> < referenceRange> <observationRange> <text>150-400</text> </observationRange> </referenceRange> </observation > </component> <component> <observation moodCode="EVN" classCode="OBS"> <templateId root="10.29.840.1.607568.22.4.2" /> <id nullFlavor="NA" /> <code codeSystem="local" code="RBC" displayName="RBC" /> <statusCode code="completed" /> < effectiveTime value="" /> <value unit="10*6/uL" xsi:type= "PQ" value="4.74" /> <referenceRange> <observationRange> <text>4.60-6.20</text> </observationRange> </ referenceRange> </observation> </component> <component> <observation moodCode="EVN" classCode="OBS"> <templateId root= "16.840.1.717150.07.02.22.4.2" /> <id nullFlavor="NA" /> < code codeSystem="local" code="RDW" displayName="RDW" /> <statusCode code="completed" /> <effectiveTime value="" /> < value unit="%" xsi:type="PQ" value="13.9" /> <referenceRange> <observationRange> <text>11.5-14.5</text> </ observationRange> </referenceRange> </observation> </ component> <component> <observation moodCode="EVN" classCode="OBS"> <templateId root="10.29.840.1.277016.22.4.2" /> <id nullFlavor="NA" /> <code codeSystem="local" code="WBCIR" displayName= "WBC" /> <statusCode code="completed" /> <effectiveTime value= "[id number]" /> <value unit="K/uL" xsi:type="PQ" value="17.6" /> <interpretationCode codeSystem="local" code="*" /> < referenceRange> <observationRange> <text>4.8-10.8</text > </observationRange> </referenceRange> </observation > </component> </organizer> </entry> <entry> <organizer moodCode= "EVN" classCode="BATTERY"> <templateId root="16.840.1.516713.10..22.4.1 " /> <id nullFlavor="NA" /> <code codeSystem="local" code="CMP" displayName="Comprehensive Metabolic Panel (CMP)" /> <statusCode code= "completed" /> <component> <observation moodCode="EVN" classCode= "OBS"> <templateId root="16.840.1.773398...4.2" /> < id nullFlavor="NA" /> <code codeSystem="local" code="ALB" displayName= "Albumin" /> <statusCode code="completed" /> <effectiveTime value="[id number]" /> <value unit="g/dL" xsi:type="PQ" value="2.5" / > <interpretationCode codeSystem="local" code="*" /> < referenceRange> <observationRange> <text>3.5-4.8</text> </observationRange> </referenceRange> </observation > </component> <component> <observation moodCode="EVN" classCode="OBS"> <templateId root="10.29.840.1.118005.07.02.22.4.2" /> <id nullFlavor="NA" /> <code codeSystem="local" code="ALP" displayName="Alkaline Phosphatase" /> <statusCode code="completed" /> <effectiveTime value="[id number]" /> <value unit="U/L" xsi: type="PQ" value="86" /> <referenceRange> <observationRange> <text>26-104</text> </observationRange> </ referenceRange> </observation> </component> <component> <observation moodCode="EVN" classCode="OBS"> <templateId root= "216.840.1.687420.10..22.4.2" /> <id nullFlavor="NA" /> < code codeSystem="local" code="ALT" displayName="ALT (SGPT)" /> < statusCode code="completed" /> <effectiveTime value="" /> <value unit="U/L" xsi:type="PQ" value="26" /> <referenceRange > <observationRange> <text>17-63</text> </ observationRange> </referenceRange> </observation> </ component> <component> <observation moodCode="EVN" classCode="OBS"> <templateId root="216.840.1.707739....4.2" /> <id nullFlavor="NA" /> <code codeSystem="local" code="AGAP" displayName= "Anion Gap" /> <statusCode code="completed" /> <effectiveTime value="" /> <value unit="mEq/L" xsi:type="PQ" value="10" / > <referenceRange> <observationRange> <text>3- 20</text> </observationRange> </referenceRange> </ observation> </component> <component> <observation moodCode= "EVN" classCode="OBS"> <templateId root="16.840.1.597594.10..22.4.2 " /> <id nullFlavor="NA" /> <code codeSystem="local" code="AST " displayName="AST (SGOT)" /> <statusCode code="completed" /> <effectiveTime value="[id number]" /> <value unit="U/L" xsi:type="PQ" value="29" /> <referenceRange> <observationRange> <text>15-41</text> </observationRange> </referenceRange > </observation> </component> <component> <observation moodCode="EVN" classCode="OBS"> <templateId root= "216.840.1.471299.10.20.22.4.2" /> <id nullFlavor="NA" /> < code codeSystem="local" code="BILIT" displayName="Bilirubin Total" /> < statusCode code="completed" /> <effectiveTime value="" /> <value unit="mg/dL" xsi:type="PQ" value="1.0" /> < referenceRange> <observationRange> <text>0.2-1.2</text> </observationRange> </referenceRange> </observation > </component> <component> <observation moodCode="EVN" classCode="OBS"> <templateId root="10.29.840.1.990898.10.22.4.2" /> <id nullFlavor="NA" /> <code codeSystem="local" code="BUN" displayName="BUN" /> <statusCode code="completed" /> < effectiveTime value="" /> <value unit="mg/dL" xsi:type="PQ " value="15" /> <referenceRange> <observationRange> <text>4-20</text> </observationRange> </referenceRange > </observation> </component> <component> <observation moodCode="EVN" classCode="OBS"> <templateId root= "10.29.840.1.337421.10.20.22.4.2" /> <id nullFlavor="NA" /> < code codeSystem="local" code="CA" displayName="Calcium" /> <statusCode code="completed" /> <effectiveTime value="838944537120" /> < value unit="mg/dL" xsi:type="PQ" value="8.5" /> <interpretationCode codeSystem="local" code="*" /> <referenceRange> < observationRange> <text>8.6-10.0</text> </ observationRange> </referenceRange> </observation> </ component> <component> <observation moodCode="EVN" classCode="OBS"> <templateId root="10.29.840.1.929568.22.4.2" /> <id nullFlavor="NA" /> <code codeSystem="local" code="CL" displayName= "Chloride" /> <statusCode code="completed" /> <effectiveTime value="[id number]" /> <value unit="mEq/L" xsi:type="PQ" value="96" / > <interpretationCode codeSystem="local" code="*" /> < referenceRange> <observationRange> <text>99-109</text> </observationRange> </referenceRange> </observation> </component> <component> <observation moodCode="EVN" classCode ="OBS"> <templateId root="10.29.840.1.887015.07.02.22.4.2" /> < id nullFlavor="NA" /> <code codeSystem="local" code="CO2" displayName= "CO2" /> <statusCode code="completed" /> <effectiveTime value= "361421690840" /> <value unit="mEq/L" xsi:type="PQ" value="24" /> <referenceRange> <observationRange> <text>22-32</ text> </observationRange> </referenceRange> </ observation> </component> <component> <observation moodCode= "EVN" classCode="OBS"> <templateId root="10.29.840.1.908995.22.4.2 " /> <id nullFlavor="NA" /> <code codeSystem="local" code= "CREAT" displayName="Creatinine" /> <statusCode code="completed" /> <effectiveTime value="" /> <value unit="mg/dL" xsi: type="PQ" value="0.93" /> <referenceRange> <observationRange > <text>0.64-1.27</text> </observationRange> </ referenceRange> </observation> </component> <component> <observation moodCode="EVN" classCode="OBS"> <templateId root= "2.16.840.1.392949.07.02.22.4.2" /> <id nullFlavor="NA" /> < code codeSystem="local" code="GLOB" displayName="Globulin" /> < statusCode code="completed" /> <effectiveTime value="" /> <value unit="g/dL" xsi:type="PQ" value="3.7" /> < referenceRange> <observationRange> <text>1.9-4.3</text> </observationRange> </referenceRange> </observation > </component> <component> <observation moodCode="EVN" classCode="OBS"> <templateId root="216.840.1.914650.07.02.22.4.2" /> <id nullFlavor="NA" /> <code codeSystem="local" code="GLU" displayName="Glucose" /> <statusCode code="completed" /> < effectiveTime value="419300522035" /> <value unit="mg/dL" xsi:type="PQ " value="109" /> <interpretationCode codeSystem="local" code="*" /> <referenceRange> <observationRange> <text>70-100< /text> </observationRange> </referenceRange> </ observation> </component> <component> <observation moodCode= "EVN" classCode="OBS"> <templateId root="216.840.1.002914.10.20.22.4.2 " /> <id nullFlavor="NA" /> <code codeSystem="local" code="K" displayName="Potassium" /> <statusCode code="completed" /> < effectiveTime value="" /> <value unit="mEq/L" xsi:type="PQ " value="3.0" /> <interpretationCode codeSystem="local" code="*" /> <referenceRange> <observationRange> <text>3.6-5.1 </text> </observationRange> </referenceRange> </ observation> </component> <component> <observation moodCode= "EVN" classCode="OBS"> <templateId root="10.29.840.1.446498.22.4.2 " /> <id nullFlavor="NA" /> <code codeSystem="local" code="TP " displayName="Protein" /> <statusCode code="completed" /> < effectiveTime value="" /> <value unit="g/dL" xsi:type="PQ" value="6.2" /> <referenceRange> <observationRange> <text>6.1-7.9</text> </observationRange> </ referenceRange> </observation> </component> <component> <observation moodCode="EVN" classCode="OBS"> <templateId root= "16.840.1.984743.10.2022.4.2" /> <id nullFlavor="NA" /> < code codeSystem="local" code="NA" displayName="Sodium" /> <statusCode code="completed" /> <effectiveTime value="" /> < value unit="mEq/L" xsi:type="PQ" value="130" /> <interpretationCode codeSystem="local" code="*" /> <referenceRange> < observationRange> <text>136-144</text> </ observationRange> </referenceRange> </observation> </ component> </organizer> </entry> <entry> <organizer moodCode="EVN" classCode="BATTERY"> <templateId root="10.29.840.1.622712.22.4.1" /> <id nullFlavor="NA" /> <code codeSystem="local" code="GFR" displayName ="eGFR" /> <statusCode code="completed" /> <component> < observation moodCode="EVN" classCode="OBS"> <templateId root= "10.29.840.1.188982.07.02.22.4.2" /> <id nullFlavor="NA" /> < code codeSystem="local" code="GFR" displayName="eGFR" /> <statusCode code="completed" /> <effectiveTime value="101035732549" /> < value unit="mL/min" xsi:type="PQ" value=">60" /> <referenceRange> <observationRange> <text>>60</text> </ observationRange> </referenceRange> </observation> </ component> </organizer> </entry> <entry> <organizer moodCode="EVN" classCode="BATTERY"> <templateId root="16.840.1.355309.22.4.1" /> <id nullFlavor="NA" /> <code codeSystem="local" code="UDRGH" displayName="Urine Drug Screen" /> <statusCode code="completed" /> < component> <observation moodCode="EVN" classCode="OBS"> < templateId root="10.29.840.1.277765.07.02.22.4.2" /> <id nullFlavor="NA " /> <code codeSystem="local" code="UTCA1" displayName="Tricyclics" /> <statusCode code="completed" /> <effectiveTime value= "588080881666" /> <value unit="NA" xsi:type="PQ" value="Not Detected" / > <referenceRange> <observationRange> <text /> </observationRange> </referenceRange> </observation > </component> <component> <observation moodCode="EVN" classCode="OBS"> <templateId root="10.29.840.1.365199.10..4.2" /> <id nullFlavor="NA" /> <code codeSystem="local" code="UAMP1" displayName="Amph/Meth/Ecstasy" /> <statusCode code="completed" /> <effectiveTime value="946458605815" /> <value unit="NA" xsi:type= "PQ" value="Negative" /> <referenceRange> <observationRange > <text /> </observationRange> </referenceRange > </observation> </component> <component> <observation moodCode="EVN" classCode="OBS"> <templateId root= "840.1.912546.10..22.4.2" /> <id nullFlavor="NA" /> < code codeSystem="local" code="UBAR1" displayName="Barbiturates" /> < statusCode code="completed" /> <effectiveTime value="425103287120" /> <value unit="NA" xsi:type="PQ" value="Negative" /> < referenceRange> <observationRange> <text /> < /observationRange> </referenceRange> </observation> </ component> <component> <observation moodCode="EVN" classCode="OBS"> <templateId root="840.1.402575.07.02.22.4.2" /> <id nullFlavor="NA" /> <code codeSystem="local" code="UBEN1" displayName= "Benzodiazepine" /> <statusCode code="completed" /> < effectiveTime value="" /> <value unit="NA" xsi:type="PQ" value="Negative" /> <referenceRange> <observationRange> <text /> </observationRange> </referenceRange> </observation> </component> <component> <observation moodCode="EVN" classCode="OBS"> <templateId root= "840.1.263826.07.02.22.4.2" /> <id nullFlavor="NA" /> < code codeSystem="local" code="UCAN1" displayName="Cannabinoid" /> < statusCode code="completed" /> <effectiveTime value="" /> <value unit="NA" xsi:type="PQ" value="Negative" /> < referenceRange> <observationRange> <text /> < /observationRange> </referenceRange> </observation> </ component> <component> <observation moodCode="EVN" classCode="OBS"> <templateId root="10.29.840.1.421657.07.02.22.4.2" /> <id nullFlavor="NA" /> <code codeSystem="local" code="UCOC1" displayName= "Cocaine" /> <statusCode code="completed" /> <effectiveTime value="" /> <value unit="NA" xsi:type="PQ" value="Negative " /> <referenceRange> <observationRange> <text /> </observationRange> </referenceRange> </ observation> </component> <component> <observation moodCode= "EVN" classCode="OBS"> <templateId root="840.1.063995.10..22.4.2 " /> <id nullFlavor="NA" /> <code codeSystem="local" code= "UMTD1" displayName="EDDP (Methadone met.)" /> <statusCode code= "completed" /> <effectiveTime value="" /> <value unit="NA" xsi:type="PQ" value="Negative" /> <referenceRange> <observationRange> <text /> </observationRange> </referenceRange> </observation> </component> <component> <observation moodCode="EVN" classCode="OBS"> <templateId root= "216.840.1.914274.10..4.2" /> <id nullFlavor="NA" /> < code codeSystem="local" code="UOPI1" displayName="Opiate" /> < statusCode code="completed" /> <effectiveTime value="" /> <value unit="NA" xsi:type="PQ" value="Negative" /> < referenceRange> <observationRange> <text /> < /observationRange> </referenceRange> </observation> </ component> <component> <observation moodCode="EVN" classCode="OBS"> <templateId root="2.16.840.1.498485.10..22.4.2" /> <id nullFlavor="NA" /> <code codeSystem="local" code="UPCP1" displayName= "Phencyclidine (PCP)" /> <statusCode code="completed" /> < effectiveTime value="" /> <value unit="NA" xsi:type="PQ" value="Negative" /> <referenceRange> <observationRange> <text /> </observationRange> </referenceRange> </observation> </component> </organizer> </entry> <entry> < organizer moodCode="EVN" classCode="BATTERY"> <templateId root= "10.29.840.1.542718.10..4.1" /> <id nullFlavor="NA" /> <code codeSystem="local" code="UA" displayName="Urinalysis with reflex microscopic" / > <statusCode code="completed" /> <component> <observation moodCode="EVN" classCode="OBS"> <templateId root= "840.1.296706.07.02.22.4.2" /> <id nullFlavor="NA" /> < code codeSystem="local" code="UAPP" displayName="Appearance" /> < statusCode code="completed" /> <effectiveTime value="" /> <value unit="NA" xsi:type="PQ" value="Clear" /> < referenceRange> <observationRange> <text /> < /observationRange> </referenceRange> </observation> </ component> <component> <observation moodCode="EVN" classCode="OBS"> <templateId root="840.1.674290.07.02.22.4.2" /> <id nullFlavor="NA" /> <code codeSystem="local" code="UBIL" displayName= "Bilirubin" /> <statusCode code="completed" /> <effectiveTime value="" /> <value unit="NA" xsi:type="PQ" value="Negative " /> <referenceRange> <observationRange> <text> Negative</text> </observationRange> </referenceRange> </observation> </component> <component> <observation moodCode ="EVN" classCode="OBS"> <templateId root= "10.29.840.1.543687.07.02.22.4.2" /> <id nullFlavor="NA" /> < code codeSystem="local" code="UBLD" displayName="Blood" /> <statusCode code="completed" /> <effectiveTime value="" /> < value unit="NA" xsi:type="PQ" value="Pos 2+" /> <interpretationCode codeSystem="local" code="*" /> <referenceRange> < observationRange> <text>Negative</text> </ observationRange> </referenceRange> </observation> </ component> <component> <observation moodCode="EVN" classCode="OBS"> <templateId root="16.840.1.740848.10..22.4.2" /> <id nullFlavor="NA" /> <code codeSystem="local" code="UCOLR" displayName= "Color" /> <statusCode code="completed" /> <effectiveTime value="" /> <value unit="NA" xsi:type="PQ" value="Maite" / > <interpretationCode codeSystem="local" code="*" /> < referenceRange> <observationRange> <text /> < /observationRange> </referenceRange> </observation> </ component> <component> <observation moodCode="EVN" classCode="OBS"> <templateId root="10.29.840.1.186445.10..22.4.2" /> <id nullFlavor="NA" /> <code codeSystem="local" code="UGLU" displayName= "Glucose, Urine" /> <statusCode code="completed" /> < effectiveTime value="" /> <value unit="" xsi:type="PQ" value="Negative" /> <referenceRange> <observationRange> <text>Negative</text> </observationRange> </ referenceRange> </observation> </component> <component> <observation moodCode="EVN" classCode="OBS"> <templateId root= "840.1.066408.10.22.4.2" /> <id nullFlavor="NA" /> < code codeSystem="local" code="UKET" displayName="Ketones" /> < statusCode code="completed" /> <effectiveTime value="" /> <value unit="" xsi:type="PQ" value="Negative" /> < referenceRange> <observationRange> <text>Negative</text > </observationRange> </referenceRange> </observation > </component> <component> <observation moodCode="EVN" classCode="OBS"> <templateId root="2.16.840.1.907809.07.02.22.4.2" /> <id nullFlavor="NA" /> <code codeSystem="local" code="ULEU" displayName="Leukocyte Esterase" /> <statusCode code="completed" /> <effectiveTime value="" /> <value unit="NA" xsi:type ="PQ" value="Negative" /> <referenceRange> <observationRange > <text>Negative</text> </observationRange> </ referenceRange> </observation> </component> <component> <observation moodCode="EVN" classCode="OBS"> <templateId root= "2.16.840.1.554295.07.02.22.4.2" /> <id nullFlavor="NA" /> < code codeSystem="local" code="UNIT" displayName="Nitrites" /> < statusCode code="completed" /> <effectiveTime value="" /> <value unit="NA" xsi:type="PQ" value="Negative" /> < referenceRange> <observationRange> <text>Negative</text > </observationRange> </referenceRange> </observation > </component> <component> <observation moodCode="EVN" classCode="OBS"> <templateId root="216.840.1.521979.10.22.4.2" /> <id nullFlavor="NA" /> <code codeSystem="local" code="UPH" displayName="pH" /> <statusCode code="completed" /> < effectiveTime value="" /> <value unit="NA" xsi:type="PQ" value="6.0" /> <referenceRange> <observationRange> <text>5.0-8.0</text> </observationRange> </ referenceRange> </observation> </component> <component> <observation moodCode="EVN" classCode="OBS"> <templateId root= "16.840.1.500726...4.2" /> <id nullFlavor="NA" /> < code codeSystem="local" code="UPRO" displayName="Protein" /> < statusCode code="completed" /> <effectiveTime value="" /> <value unit="NA" xsi:type="PQ" value="Negative" /> < referenceRange> <observationRange> <text>Negative</text > </observationRange> </referenceRange> </observation > </component> <component> <observation moodCode="EVN" classCode="OBS"> <templateId root="16.840.1.757531.1022.4.2" /> <id nullFlavor="NA" /> <code codeSystem="local" code="USPG" displayName="Specific [place]" /> <statusCode code="completed" /> <effectiveTime value="" /> <value unit="NA" xsi:type= "PQ" value="1.020" /> <referenceRange> <observationRange> <text>1.003-1.030</text> </observationRange> </ referenceRange> </observation> </component> <component> <observation moodCode="EVN" classCode="OBS"> <templateId root= "216.840.1.858648.10..4.2" /> <id nullFlavor="NA" /> < code codeSystem="local" code="UTYP" displayName="UA Collection type" /> <statusCode code="completed" /> <effectiveTime value="865891420642" / > <value unit="NA" xsi:type="PQ" value="Catheter" /> < referenceRange> <observationRange> <text /> < /observationRange> </referenceRange> </observation> </ component> <component> <observation moodCode="EVN" classCode="OBS"> <templateId root="216.840.1.653225...4.2" /> <id nullFlavor="NA" /> <code codeSystem="local" code="UURO" displayName= "Urobilinogen" /> <statusCode code="completed" /> < effectiveTime value="602005332663" /> <value unit="mg/dL" xsi:type="PQ " value="2.0" /> <interpretationCode codeSystem="local" code="*" /> <referenceRange> <observationRange> <text><1.0 </text> </observationRange> </referenceRange> </ observation> </component> </organizer> </entry> <entry> <organizer moodCode="EVN" classCode="BATTERY"> <templateId root= "216.840.1.989122.10..4.1" /> <id nullFlavor="NA" /> <code codeSystem="local" code="UMIC" displayName="Urine Microscopic" /> < statusCode code="completed" /> <component> <observation moodCode= "EVN" classCode="OBS"> <templateId root="216.840.1.352036.10.22.4.2 " /> <id nullFlavor="NA" /> <code codeSystem="local" code= "UBAC" displayName="Bacteria" /> <statusCode code="completed" /> <effectiveTime value="" /> <value unit="NA" xsi:type= "PQ" value="None Seen" /> <referenceRange> <observationRange > <text /> </observationRange> </referenceRange > </observation> </component> <component> <observation moodCode="EVN" classCode="OBS"> <templateId root= "16.840.1.631733.22.4.2" /> <id nullFlavor="NA" /> < code codeSystem="local" code="UEPI" displayName="Epithelial Cells" /> < statusCode code="completed" /> <effectiveTime value="" /> <value unit="/HPF" xsi:type="PQ" value="None Seen" /> < referenceRange> <observationRange> <text /> < /observationRange> </referenceRange> </observation> </ component> <component> <observation moodCode="EVN" classCode="OBS"> <templateId root="16.840.1.126504.1022.4.2" /> <id nullFlavor="NA" /> <code codeSystem="local" code="URBC" displayName= "RBC, Urine" /> <statusCode code="completed" /> < effectiveTime value="" /> <value unit="/HPF" xsi:type="PQ" value="2" /> <referenceRange> <observationRange> <text>0-2</text> </observationRange> </referenceRange> </observation> </component> <component> <observation moodCode="EVN" classCode="OBS"> <templateId root= "840.1.173870.07.02.22.4.2" /> <id nullFlavor="NA" /> < code codeSystem="local" code="UMUC" displayName="Urine Mucus" /> < statusCode code="completed" /> <effectiveTime value="" /> <value unit="NA" xsi:type="PQ" value="Present" /> < referenceRange> <observationRange> <text /> < /observationRange> </referenceRange> </observation> </ component> <component> <observation moodCode="EVN" classCode="OBS"> <templateId root="840.1.333315.07.02.22.4.2" /> <id nullFlavor="NA" /> <code codeSystem="local" code="UWBC" displayName= "WBC, Urine" /> <statusCode code="completed" /> < effectiveTime value="" /> <value unit="/HPF" xsi:type="PQ" value="0" /> <referenceRange> <observationRange> <text>0-4</text> </observationRange> </referenceRange> </observation> </component> </organizer> </entry> <entry> < organizer moodCode="EVN" classCode="BATTERY"> <templateId root= "840.1.383162.07.02.22.4.1" /> <id nullFlavor="NA" /> <code codeSystem="local" code="LACID" displayName="Lactic Acid Venous" /> < statusCode code="completed" /> <component> <observation moodCode= "EVN" classCode="OBS"> <templateId root="840.1.093782.07.02.224.2 " /> <id nullFlavor="NA" /> <code codeSystem="local" code= "LACID" displayName="Lactic Acid Venous" /> <statusCode code="completed " /> <effectiveTime value="[id number]" /> <value unit="mEq/L " xsi:type="PQ" value="0.9" /> <referenceRange> < observationRange> <text>0.5-2.2</text> </ observationRange> </referenceRange> </observation> </ component> </organizer> </entry> <entry> <organizer moodCode="EVN" classCode="BATTERY"> <templateId root="16.840.1.776169.07.02.22.4.1" /> <id nullFlavor="NA" /> <code codeSystem="local" code="CBCWD" displayName="CBC With Platelet and Differential" /> <statusCode code= "completed" /> <component> <observation moodCode="EVN" classCode= "OBS"> <templateId root="16.840.1.712491.07.02.22.4.2" /> < id nullFlavor="NA" /> <code codeSystem="local" code="ABASR" displayName ="Absolute Basophils" /> <statusCode code="completed" /> < effectiveTime value="[id number]" /> <value unit="10*3/uL" xsi:type= "PQ" value="0.01" /> <referenceRange> <observationRange> <text>0.00-0.20</text> </observationRange> </ referenceRange> </observation> </component> <component> <observation moodCode="EVN" classCode="OBS"> <templateId root= "16.840.1.246643.07.02.22.4.2" /> <id nullFlavor="NA" /> < code codeSystem="local" code="AEOSR" displayName="Absolute Eosinophils" /> <statusCode code="completed" /> <effectiveTime value=" " /> <value unit="10*3/uL" xsi:type="PQ" value="0.05" /> < referenceRange> <observationRange> <text>0.00-0.50</text > </observationRange> </referenceRange> </observation > </component> <component> <observation moodCode="EVN" classCode="OBS"> <templateId root="2.16.840.1.199689.10..22.4.2" /> <id nullFlavor="NA" /> <code codeSystem="local" code="ALYMR" displayName="Absolute Lymphocytes" /> <statusCode code="completed" /> <effectiveTime value="" /> <value unit="10*3/uL" xsi:type="PQ" value="1.08" /> <referenceRange> < observationRange> <text>0.80-3.30</text> </ observationRange> </referenceRange> </observation> </ component> <component> <observation moodCode="EVN" classCode="OBS"> <templateId root="2.16.840.1.718714.10..22.4.2" /> <id nullFlavor="NA" /> <code codeSystem="local" code="AMONR" displayName= "Absolute Monocytes" /> <statusCode code="completed" /> < effectiveTime value="" /> <value unit="10*3/uL" xsi:type= "PQ" value="1.23" /> <interpretationCode codeSystem="local" code="*" / > <referenceRange> <observationRange> <text> 0.30-1.00</text> </observationRange> </referenceRange> </observation> </component> <component> <observation moodCode="EVN" classCode="OBS"> <templateId root= "2.16.840.1.827250.10.20.22.4.2" /> <id nullFlavor="NA" /> < code codeSystem="local" code="ASEGR" displayName="Absolute Neutrophils" /> <statusCode code="completed" /> <effectiveTime value=" " /> <value unit="10*3/uL" xsi:type="PQ" value="12.55" /> < interpretationCode codeSystem="local" code="*" /> <referenceRange> <observationRange> <text>1.90-7.00</text> </ observationRange> </referenceRange> </observation> </ component> <component> <observation moodCode="EVN" classCode="OBS"> <templateId root="216.840.1.953936.07.02.22.4.2" /> <id nullFlavor="NA" /> <code codeSystem="local" code="BASOR" displayName= "Basophils" /> <statusCode code="completed" /> <effectiveTime value="" /> <value unit="%" xsi:type="PQ" value="0" /> <referenceRange> <observationRange> <text>0-2< /text> </observationRange> </referenceRange> </ observation> </component> <component> <observation moodCode= "EVN" classCode="OBS"> <templateId root="2.16.840.1.281051.10.2022.4.2 " /> <id nullFlavor="NA" /> <code codeSystem="local" code= "EOSR" displayName="Eosinophils" /> <statusCode code="completed" /> <effectiveTime value="" /> <value unit="%" xsi: type="PQ" value="0" /> <referenceRange> <observationRange> <text>0-4</text> </observationRange> </ referenceRange> </observation> </component> <component> <observation moodCode="EVN" classCode="OBS"> <templateId root= "16.840.1.184092.10..22.4.2" /> <id nullFlavor="NA" /> < code codeSystem="local" code="HCT" displayName="HCT" /> <statusCode code="completed" /> <effectiveTime value="" /> < value unit="%" xsi:type="PQ" value="37.7" /> <interpretationCode codeSystem="local" code="*" /> <referenceRange> < observationRange> <text>42.0-52.0</text> </ observationRange> </referenceRange> </observation> </ component> <component> <observation moodCode="EVN" classCode="OBS"> <templateId root="10.29.840.1.430329.10..4.2" /> <id nullFlavor="NA" /> <code codeSystem="local" code="HGB" displayName="HGB " /> <statusCode code="completed" /> <effectiveTime value= "" /> <value unit="g/dL" xsi:type="PQ" value="12.5" /> <interpretationCode codeSystem="local" code="*" /> < referenceRange> <observationRange> <text>14.0-18.0</text > </observationRange> </referenceRange> </observation > </component> <component> <observation moodCode="EVN" classCode="OBS"> <templateId root="16.840.1.471454.10.20.22.4.2" /> <id nullFlavor="NA" /> <code codeSystem="local" code="IMGA" displayName="Immature Granulocytes" /> <statusCode code="completed" /> <effectiveTime value="" /> <value unit="%" xsi:type="PQ" value="1.0" /> <referenceRange> < observationRange> <text>0.0-1.0</text> </ observationRange> </referenceRange> </observation> </ component> <component> <observation moodCode="EVN" classCode="OBS"> <templateId root="2.16.840.1.229673.10...4.2" /> <id nullFlavor="NA" /> <code codeSystem="local" code="LYMPR" displayName= "Lymphocytes" /> <statusCode code="completed" /> < effectiveTime value="" /> <value unit="%" xsi:type="PQ " value="7" /> <interpretationCode codeSystem="local" code="*" /> <referenceRange> <observationRange> <text>20-46</ text> </observationRange> </referenceRange> </ observation> </component> <component> <observation moodCode= "EVN" classCode="OBS"> <templateId root="2.16.840.1.981160.10..22.4.2 " /> <id nullFlavor="NA" /> <code codeSystem="local" code="MCH " displayName="MCH" /> <statusCode code="completed" /> < effectiveTime value="" /> <value unit="pg" xsi:type="PQ" value="27.1" /> <referenceRange> <observationRange> <text>27.0-32.0</text> </observationRange> </ referenceRange> </observation> </component> <component> <observation moodCode="EVN" classCode="OBS"> <templateId root= "10.29.840.1.737892.10.20.22.4.2" /> <id nullFlavor="NA" /> < code codeSystem="local" code="MCHC" displayName="MCHC" /> <statusCode code="completed" /> <effectiveTime value="" /> < value unit="g/dL" xsi:type="PQ" value="33.2" /> <referenceRange> <observationRange> <text>32.0-36.0</text> </ observationRange> </referenceRange> </observation> </ component> <component> <observation moodCode="EVN" classCode="OBS"> <templateId root="10.29.840.1.448371.10.22.4.2" /> <id nullFlavor="NA" /> <code codeSystem="local" code="MCV" displayName="MCV " /> <statusCode code="completed" /> <effectiveTime value= "" /> <value unit="fL" xsi:type="PQ" value="81.6" /> <interpretationCode codeSystem="local" code="*" /> <referenceRange > <observationRange> <text>82.0-99.0</text> < /observationRange> </referenceRange> </observation> </ component> <component> <observation moodCode="EVN" classCode="OBS"> <templateId root="10.29.840.1.200609.10.20.22.4.2" /> <id nullFlavor="NA" /> <code codeSystem="local" code="MONOR" displayName= "Monocytes" /> <statusCode code="completed" /> <effectiveTime value="" /> <value unit="%" xsi:type="PQ" value="8" /> <referenceRange> <observationRange> <text>4-11 </text> </observationRange> </referenceRange> </ observation> </component> <component> <observation moodCode= "EVN" classCode="OBS"> <templateId root="16.840.1.057610.10.20.22.4.2 " /> <id nullFlavor="NA" /> <code codeSystem="local" code="MPV " displayName="MPV" /> <statusCode code="completed" /> < effectiveTime value="" /> <value unit="fL" xsi:type="PQ" value="9.1" /> <interpretationCode codeSystem="local" code="*" /> <referenceRange> <observationRange> <text>9.4-12.3< /text> </observationRange> </referenceRange> </ observation> </component> <component> <observation moodCode= "EVN" classCode="OBS"> <templateId root="10.29.840.1.558898.10..22.4.2 " /> <id nullFlavor="NA" /> <code codeSystem="local" code= "SEGR" displayName="Neutrophils" /> <statusCode code="completed" /> <effectiveTime value="" /> <value unit="%" xsi: type="PQ" value="83" /> <interpretationCode codeSystem="local" code="* " /> <referenceRange> <observationRange> <text> 51-75</text> </observationRange> </referenceRange> </ observation> </component> <component> <observation moodCode= "EVN" classCode="OBS"> <templateId root="10.29.840.1.031497.10.20.22.4.2 " /> <id nullFlavor="NA" /> <code codeSystem="local" code= "NRBCA" displayName="Nucleated RBC Automated" /> <statusCode code= "completed" /> <effectiveTime value="" /> <value unit="/100WBC" xsi:type="PQ" value="0.0" /> <referenceRange> <observationRange> <text /> </observationRange> </referenceRange> </observation> </component> <component> <observation moodCode="EVN" classCode="OBS"> <templateId root= "16.840.1.297708.10.20.22.4.2" /> <id nullFlavor="NA" /> < code codeSystem="local" code="PLT" displayName="Platelet Count" /> < statusCode code="completed" /> <effectiveTime value="" /> <value unit="K/uL" xsi:type="PQ" value="305" /> < referenceRange> <observationRange> <text>150-400</text> </observationRange> </referenceRange> </observation > </component> <component> <observation moodCode="EVN" classCode="OBS"> <templateId root="10.29.840.1.778512.10.20.22.4.2" /> <id nullFlavor="NA" /> <code codeSystem="local" code="RBC" displayName="RBC" /> <statusCode code="completed" /> < effectiveTime value="" /> <value unit="10*6/uL" xsi:type= "PQ" value="4.62" /> <referenceRange> <observationRange> <text>4.60-6.20</text> </observationRange> </ referenceRange> </observation> </component> <component> <observation moodCode="EVN" classCode="OBS"> <templateId root= "10.29.840.1.613444.10.2022.4.2" /> <id nullFlavor="NA" /> < code codeSystem="local" code="RDW" displayName="RDW" /> <statusCode code="completed" /> <effectiveTime value="" /> < value unit="%" xsi:type="PQ" value="14.1" /> <referenceRange> <observationRange> <text>11.5-14.5</text> </ observationRange> </referenceRange> </observation> </ component> <component> <observation moodCode="EVN" classCode="OBS"> <templateId root="10.29.840.1.978846.07.02.22.4.2" /> <id nullFlavor="NA" /> <code codeSystem="local" code="WBCIR" displayName= "WBC" /> <statusCode code="completed" /> <effectiveTime value= "" /> <value unit="K/uL" xsi:type="PQ" value="15.1" /> <interpretationCode codeSystem="local" code="*" /> < referenceRange> <observationRange> <text>4.8-10.8</text > </observationRange> </referenceRange> </observation > </component> </organizer> </entry> <entry> <organizer moodCode= "EVN" classCode="BATTERY"> <templateId root="10.29.840.1.401667.1022.4.1 " /> <id nullFlavor="NA" /> <code codeSystem="local" code="BMP" displayName="Basic Metabolic Panel (BMP)" /> <statusCode code="completed" / > <component> <observation moodCode="EVN" classCode="OBS"> <templateId root="10.29.840.1.329123..4.2" /> <id nullFlavor="NA " /> <code codeSystem="local" code="AGAP" displayName="Anion Gap" /> <statusCode code="completed" /> <effectiveTime value= "" /> <value unit="mEq/L" xsi:type="PQ" value="8" /> <referenceRange> <observationRange> <text>3-20</text > </observationRange> </referenceRange> </observation > </component> <component> <observation moodCode="EVN" classCode="OBS"> <templateId root="216.840.1.707573.07.02.22.4.2" /> <id nullFlavor="NA" /> <code codeSystem="local" code="BUN" displayName="BUN" /> <statusCode code="completed" /> < effectiveTime value="" /> <value unit="mg/dL" xsi:type="PQ " value="15" /> <referenceRange> <observationRange> <text>4-20</text> </observationRange> </referenceRange > </observation> </component> <component> <observation moodCode="EVN" classCode="OBS"> <templateId root= "216.840.1.663007....4.2" /> <id nullFlavor="NA" /> < code codeSystem="local" code="CA" displayName="Calcium" /> <statusCode code="completed" /> <effectiveTime value="" /> < value unit="mg/dL" xsi:type="PQ" value="8.3" /> <interpretationCode codeSystem="local" code="*" /> <referenceRange> < observationRange> <text>8.6-10.0</text> </ observationRange> </referenceRange> </observation> </ component> <component> <observation moodCode="EVN" classCode="OBS"> <templateId root="216.840.1.534441.10..22.4.2" /> <id nullFlavor="NA" /> <code codeSystem="local" code="CL" displayName= "Chloride" /> <statusCode code="completed" /> <effectiveTime value="" /> <value unit="mEq/L" xsi:type="PQ" value="96" / > <interpretationCode codeSystem="local" code="*" /> < referenceRange> <observationRange> <text>99-109</text> </observationRange> </referenceRange> </observation> </component> <component> <observation moodCode="EVN" classCode ="OBS"> <templateId root="16.840.1.136691.07.02.22.4.2" /> < id nullFlavor="NA" /> <code codeSystem="local" code="CO2" displayName= "CO2" /> <statusCode code="completed" /> <effectiveTime value= "" /> <value unit="mEq/L" xsi:type="PQ" value="29" /> <referenceRange> <observationRange> <text>22-32</ text> </observationRange> </referenceRange> </ observation> </component> <component> <observation moodCode= "EVN" classCode="OBS"> <templateId root="16.840.1.630985.10..22.4.2 " /> <id nullFlavor="NA" /> <code codeSystem="local" code= "CREAT" displayName="Creatinine" /> <statusCode code="completed" /> <effectiveTime value="" /> <value unit="mg/dL" xsi: type="PQ" value="1.04" /> <referenceRange> <observationRange > <text>0.64-1.27</text> </observationRange> </ referenceRange> </observation> </component> <component> <observation moodCode="EVN" classCode="OBS"> <templateId root= "10.29.840.1.553941.10.20.22.4.2" /> <id nullFlavor="NA" /> < code codeSystem="local" code="GLU" displayName="Glucose" /> < statusCode code="completed" /> <effectiveTime value="279359193632" /> <value unit="mg/dL" xsi:type="PQ" value="110" /> < interpretationCode codeSystem="local" code="*" /> <referenceRange> <observationRange> <text>70-100</text> </ observationRange> </referenceRange> </observation> </ component> <component> <observation moodCode="EVN" classCode="OBS"> <templateId root="840.1.312858.10..22.4.2" /> <id nullFlavor="NA" /> <code codeSystem="local" code="K" displayName= "Potassium" /> <statusCode code="completed" /> <effectiveTime value="906848326621" /> <value unit="mEq/L" xsi:type="PQ" value="2.9" / > <interpretationCode codeSystem="local" code="*" /> < referenceRange> <observationRange> <text>3.6-5.1</text> </observationRange> </referenceRange> </observation > </component> <component> <observation moodCode="EVN" classCode="OBS"> <templateId root="10.29.840.1.102876.10.20.22.4.2" /> <id nullFlavor="NA" /> <code codeSystem="local" code="NA" displayName="Sodium" /> <statusCode code="completed" /> < effectiveTime value="" /> <value unit="mEq/L" xsi:type="PQ " value="133" /> <interpretationCode codeSystem="local" code="*" /> <referenceRange> <observationRange> <text>136-144 </text> </observationRange> </referenceRange> </ observation> </component> </organizer> </entry> <entry> <organizer moodCode="EVN" classCode="BATTERY"> <templateId root= "16.840.1.964684.10.20.22.4.1" /> <id nullFlavor="NA" /> <code codeSystem="local" code="MG" displayName="Magnesium" /> <statusCode code= "completed" /> <component> <observation moodCode="EVN" classCode= "OBS"> <templateId root="16.840.1.572775.10.20.22.4.2" /> < id nullFlavor="NA" /> <code codeSystem="local" code="MG" displayName= "Magnesium" /> <statusCode code="completed" /> <effectiveTime value="176372963480" /> <value unit="mg/dL" xsi:type="PQ" value="2.2" / > <referenceRange> <observationRange> <text>1.8 -2.5</text> </observationRange> </referenceRange> </ observation> </component> </organizer> </entry> <entry> <organizer moodCode="EVN" classCode="BATTERY"> <templateId root= "10.29.840.1.048786.10.20.22.4.1" /> <id nullFlavor="NA" /> <code codeSystem="local" code="PHOS" displayName="Phosphorus" /> <statusCode code ="completed" /> <component> <observation moodCode="EVN" classCode= "OBS"> <templateId root="216.840.1.823173.10..22.4.2" /> < id nullFlavor="NA" /> <code codeSystem="local" code="PHOS" displayName= "Phosphorus" /> <statusCode code="completed" /> < effectiveTime value="537202492413" /> <value unit="mg/dL" xsi:type="PQ " value="3.0" /> <referenceRange> <observationRange> <text>2.4-4.7</text> </observationRange> </ referenceRange> </observation> </component> </organizer> </entry > <entry> <organizer moodCode="EVN" classCode="BATTERY"> <templateId root="216.840.1.010935.10..22.4.1" /> <id nullFlavor="NA" /> <code codeSystem="local" code="GFR" displayName="eGFR" /> <statusCode code= "completed" /> <component> <observation moodCode="EVN" classCode= "OBS"> <templateId root="216.840.1.734324.10..22.4.2" /> < id nullFlavor="NA" /> <code codeSystem="local" code="GFR" displayName= "eGFR" /> <statusCode code="completed" /> <effectiveTime value ="837300709784" /> <value unit="mL/min" xsi:type="PQ" value=">60" / > <referenceRange> <observationRange> <text>&gt ;60</text> </observationRange> </referenceRange> </ observation> </component> </organizer> </entry> <entry> <organizer moodCode="EVN" classCode="BATTERY"> <templateId root= "840.1.077857.10..4.1" /> <id nullFlavor="NA" /> <code codeSystem="local" code="CPK" displayName="Creatine Kinase (CPK)" /> < statusCode code="completed" /> <component> <observation moodCode= "EVN" classCode="OBS"> <templateId root="840.1.282917.07.02.22.4.2 " /> <id nullFlavor="NA" /> <code codeSystem="local" code="CPK " displayName="Creatine Kinase (CPK)" /> <statusCode code="completed" / > <effectiveTime value="207239611597" /> <value unit="U/L" xsi :type="PQ" value="22" /> <interpretationCode codeSystem="local" code="* " /> <referenceRange> <observationRange> <text> 49-397</text> </observationRange> </referenceRange> < /observation> </component> </organizer> </entry> <entry> < organizer moodCode="EVN" classCode="BATTERY"> <templateId root= "840.1.731166.07.02.22.4.1" /> <id nullFlavor="NA" /> <code codeSystem="local" code="PCT" displayName="Procalcitonin" /> <statusCode code="completed" /> <component> <observation moodCode="EVN" classCode="OBS"> <templateId root="840.1.853136.07.02.22.4.2" /> <id nullFlavor="NA" /> <code codeSystem="local" code="PCT" displayName="Procalcitonin" /> <statusCode code="completed" /> <effectiveTime value="396973986182" /> <value unit="ng/mL" xsi:type= "PQ" value="0.75" /> <interpretationCode codeSystem="local" code="*" / > <referenceRange> <observationRange> <text> 0.00-0.09</text> </observationRange> </referenceRange> </observation> </component> </organizer> </entry> <entry> < organizer moodCode="EVN" classCode="BATTERY"> <templateId root= "16.840.1.604485.10..22.4.1" /> <id nullFlavor="NA" /> <code codeSystem="local" code="LIPID" displayName="Lipid Panel" /> <statusCode code="completed" /> <component> <observation moodCode="EVN" classCode="OBS"> <templateId root="16.840.1.913112.07.02.22.4.2" /> <id nullFlavor="NA" /> <code codeSystem="local" code="CHR" displayName="Cardiac Risk" /> <statusCode code="completed" /> <effectiveTime value="905406855653" /> <value unit="" xsi:type="PQ" value="5.8" /> <interpretationCode codeSystem="local" code="*" /> <referenceRange> <observationRange> <text>0.0-5.7</ text> </observationRange> </referenceRange> </ observation> </component> <component> <observation moodCode= "EVN" classCode="OBS"> <templateId root="10.29.840.1.509065.07.02.22.4.2 " /> <id nullFlavor="NA" /> <code codeSystem="local" code= "CHOL" displayName="Cholesterol" /> <statusCode code="completed" /> <effectiveTime value="957135429716" /> <value unit="mg/dL" xsi: type="PQ" value="111" /> <referenceRange> <observationRange > <text>0-199</text> </observationRange> </ referenceRange> </observation> </component> <component> <observation moodCode="EVN" classCode="OBS"> <templateId root= "216.840.1.440834.10..22.4.2" /> <id nullFlavor="NA" /> < code codeSystem="local" code="HDL" displayName="HDL Cholesterol" /> < statusCode code="completed" /> <effectiveTime value="705966051797" /> <value unit="mg/dL" xsi:type="PQ" value="19" /> < interpretationCode codeSystem="local" code="*" /> <referenceRange> <observationRange> <text>40-84</text> </ observationRange> </referenceRange> </observation> </ component> <component> <observation moodCode="EVN" classCode="OBS"> <templateId root="10.29.840.1.106617.10.4.2" /> <id nullFlavor="NA" /> <code codeSystem="local" code="LDL" displayName=" LDL Cholesterol" /> <statusCode code="completed" /> < effectiveTime value="319141798409" /> <value unit="mg/dL" xsi:type="PQ " value="74" /> <referenceRange> <observationRange> <text>0-130</text> </observationRange> </ referenceRange> </observation> </component> <component> <observation moodCode="EVN" classCode="OBS"> <templateId root= "216.840.1.149733.10..22.4.2" /> <id nullFlavor="NA" /> < code codeSystem="local" code="TRIG" displayName="Triglycerides" /> < statusCode code="completed" /> <effectiveTime value="697202086152" /> <value unit="mg/dL" xsi:type="PQ" value="88" /> < referenceRange> <observationRange> <text>0-149</text> </observationRange> </referenceRange> </observation> </component> <component> <observation moodCode="EVN" classCode= "OBS"> <templateId root="16.840.1.857580.10..4.2" /> < id nullFlavor="NA" /> <code codeSystem="local" code="VLDL" displayName= "VLDL Cholesterol" /> <statusCode code="completed" /> < effectiveTime value="667168054329" /> <value unit="mg/dL" xsi:type="PQ " value="18" /> <referenceRange> <observationRange> <text>0-28</text> </observationRange> </referenceRange > </observation> </component> </organizer> </entry> <entry> <organizer moodCode="EVN" classCode="BATTERY"> <templateId root= "16.840.1.658332.10...4.1" /> <id nullFlavor="NA" /> <code codeSystem="local" code="TSHR" displayName="TSH with Reflex Free T4" /> < statusCode code="completed" /> <component> <observation moodCode= "EVN" classCode="OBS"> <templateId root="16.840.1.438795.10.4.2 " /> <id nullFlavor="NA" /> <code codeSystem="local" code= "TSHR" displayName="TSH with Reflex Free T4" /> <statusCode code= "completed" /> <effectiveTime value="884164076956" /> <value unit="uIU/mL" xsi:type="PQ" value="0.18" /> <interpretationCode codeSystem="local" code="*" /> <referenceRange> < observationRange> <text>0.35-4.94</text> </ observationRange> </referenceRange> </observation> </ component> </organizer> </entry> <entry> <organizer moodCode="EVN" classCode="BATTERY"> <templateId root="16.840.1.669228.10..22.4.1" /> <id nullFlavor="NA" /> <code codeSystem="local" code="LIPID" displayName="Lipid Panel" /> <statusCode code="completed" /> < component> <observation moodCode="EVN" classCode="OBS"> < templateId root="10.29.840.1.774320.10...4.2" /> <id nullFlavor="NA " /> <code codeSystem="local" code="CHR" displayName="Cardiac Risk" /> <statusCode code="completed" /> <effectiveTime value= "378453896115" /> <value unit="" xsi:type="PQ" value="4.6" /> <referenceRange> <observationRange> <text>0.0-5.7</text > </observationRange> </referenceRange> </observation > </component> <component> <observation moodCode="EVN" classCode="OBS"> <templateId root="10.29.840.1.422739.10..22.4.2" /> <id nullFlavor="NA" /> <code codeSystem="local" code="CHOL" displayName="Cholesterol" /> <statusCode code="completed" /> < effectiveTime value="784960710085" /> <value unit="mg/dL" xsi:type="PQ " value="110" /> <referenceRange> <observationRange> <text>0-199</text> </observationRange> </ referenceRange> </observation> </component> <component> <observation moodCode="EVN" classCode="OBS"> <templateId root= "216.840.1.176510.10...4.2" /> <id nullFlavor="NA" /> < code codeSystem="local" code="HDL" displayName="HDL Cholesterol" /> < statusCode code="completed" /> <effectiveTime value="360760035965" /> <value unit="mg/dL" xsi:type="PQ" value="24" /> < interpretationCode codeSystem="local" code="*" /> <referenceRange> <observationRange> <text>40-84</text> </ observationRange> </referenceRange> </observation> </ component> <component> <observation moodCode="EVN" classCode="OBS"> <templateId root="10.29.840.1.283092.10..4.2" /> <id nullFlavor="NA" /> <code codeSystem="local" code="LDL" displayName=" LDL Cholesterol" /> <statusCode code="completed" /> < effectiveTime value="885665667703" /> <value unit="mg/dL" xsi:type="PQ " value="73" /> <referenceRange> <observationRange> <text>0-130</text> </observationRange> </ referenceRange> </observation> </component> <component> <observation moodCode="EVN" classCode="OBS"> <templateId root= "16.840.1.726754.10..22.4.2" /> <id nullFlavor="NA" /> < code codeSystem="local" code="TRIG" displayName="Triglycerides" /> < statusCode code="completed" /> <effectiveTime value="521246009075" /> <value unit="mg/dL" xsi:type="PQ" value="67" /> < referenceRange> <observationRange> <text>0-149</text> </observationRange> </referenceRange> </observation> </component> <component> <observation moodCode="EVN" classCode= "OBS"> <templateId root="216.840.1.941133.10..4.2" /> < id nullFlavor="NA" /> <code codeSystem="local" code="VLDL" displayName= "VLDL Cholesterol" /> <statusCode code="completed" /> < effectiveTime value="539459746485" /> <value unit="mg/dL" xsi:type="PQ " value="13" /> <referenceRange> <observationRange> <text>0-28</text> </observationRange> </referenceRange > </observation> </component> </organizer> </entry> <entry> <organizer moodCode="EVN" classCode="BATTERY"> <templateId root= "216.840.1.256739.10..4.1" /> <id nullFlavor="NA" /> <code codeSystem="local" code="B12" displayName="Vitamin B12" /> <statusCode code ="completed" /> <component> <observation moodCode="EVN" classCode= "OBS"> <templateId root="16.840.1.639235.10..4.2" /> < id nullFlavor="NA" /> <code codeSystem="local" code="B12" displayName= "Vitamin B12" /> <statusCode code="completed" /> < effectiveTime value="523843996715" /> <value unit="pg/mL" xsi:type="PQ " value="459" /> <referenceRange> <observationRange> <text>213-816</text> </observationRange> </ referenceRange> </observation> </component> </organizer> </entry > <entry> <organizer moodCode="EVN" classCode="BATTERY"> <templateId root="10.29.840.1.815526.07.02.22.4.1" /> <id nullFlavor="NA" /> <code codeSystem="local" code="FT4" displayName="Free T4" /> <statusCode code= "completed" /> <component> <observation moodCode="EVN" classCode= "OBS"> <templateId root="216.840.1.047775...4.2" /> < id nullFlavor="NA" /> <code codeSystem="local" code="FT4" displayName= "Free T4" /> <statusCode code="completed" /> <effectiveTime value="077038555289" /> <value unit="ng/dL" xsi:type="PQ" value="1.3" / > <referenceRange> <observationRange> <text>0.7 -1.5</text> </observationRange> </referenceRange> </ observation> </component> </organizer> </entry> <entry> <organizer moodCode="EVN" classCode="BATTERY"> <templateId root= "16.840.1.686681.1022.4.1" /> <id nullFlavor="NA" /> <code codeSystem="local" code="RPR" displayName="RPR" /> <statusCode code= "completed" /> <component> <observation moodCode="EVN" classCode= "OBS"> <templateId root="10.29.840.1.668717.07.02.22.4.2" /> < id nullFlavor="NA" /> <code codeSystem="local" code="RPR" displayName= "RPR" /> <statusCode code="completed" /> <effectiveTime value= "717076869518" /> <value unit="NA" xsi:type="PQ" value="Non-reactive" / > <referenceRange> <observationRange> <text /> </observationRange> </referenceRange> </observation > </component> </organizer> </entry> <entry> <organizer moodCode= "EVN" classCode="BATTERY"> <templateId root="216.840.1.977008.07.02.22.4.1 " /> <id nullFlavor="NA" /> <code codeSystem="local" code="HA1C" displayName="Hemoglobin A1C" /> <statusCode code="completed" /> < component> <observation moodCode="EVN" classCode="OBS"> < templateId root="16.840.1.707763....4.2" /> <id nullFlavor="NA " /> <code codeSystem="local" code="HA1C" displayName="Hemoglobin A1C" /> <statusCode code="completed" /> <effectiveTime value= "180980705796" /> <value unit="%" xsi:type="PQ" value="5.9" /> <interpretationCode codeSystem="local" code="*" /> < referenceRange> <observationRange> <text>4.1-5.6</text> </observationRange> </referenceRange> </observation > </component> </organizer> </entry> <entry> <organizer moodCode= "EVN" classCode="BATTERY"> <templateId root="16.840.1.987154.07.02.22.4.1 " /> <id nullFlavor="NA" /> <code codeSystem="local" code="EAG" displayName="Estimated Average Glucose" /> <statusCode code="completed" /> <component> <observation moodCode="EVN" classCode="OBS"> < templateId root="216.840.1.792553.10.20.22.4.2" /> <id nullFlavor="NA " /> <code codeSystem="local" code="EAG" displayName="Estimated Average Glucose" /> <statusCode code="completed" /> < effectiveTime value="189741075290" /> <value unit="mg/dL" xsi:type="PQ " value="122.6" /> <referenceRange> <observationRange> <text /> </observationRange> </referenceRange> </observation> </component> </organizer> </entry> <entry> < organizer moodCode="EVN" classCode="BATTERY"> <templateId root= "16.840.1.374298.10..22.4.1" /> <id nullFlavor="NA" /> <code codeSystem="local" code="25OHD" displayName="Vitamin D, 25-Hydroxy" /> < statusCode code="completed" /> <component> <observation moodCode= "EVN" classCode="OBS"> <templateId root="16.840.1.993499.10.20.22.4.2 " /> <id nullFlavor="NA" /> <code codeSystem="local" code= "VITDT" displayName="25-Hydroxy D Total" /> <statusCode code="completed " /> <effectiveTime value="946480397536" /> <value unit="ng/mL " xsi:type="PQ" value="46" /> <referenceRange> < observationRange> <text>30-100</text> </observationRange > </referenceRange> </observation> </component> </ organizer> </entry> <entry> <organizer moodCode="EVN" classCode="BATTERY"> <templateId root="216.840.1.393532.10..22.4.1" /> <id nullFlavor= "NA" /> <code codeSystem="local" code="CBCND" displayName="CBC With Platelet No Differential" /> <statusCode code="completed" /> < component> <observation moodCode="EVN" classCode="OBS"> < templateId root="216.840.1.234200.10...4.2" /> <id nullFlavor="NA " /> <code codeSystem="local" code="HCT" displayName="HCT" /> <statusCode code="completed" /> <effectiveTime value="882119585805" /> <value unit="%" xsi:type="PQ" value="36.3" /> < interpretationCode codeSystem="local" code="*" /> <referenceRange> <observationRange> <text>42.0-52.0</text> </ observationRange> </referenceRange> </observation> </ component> <component> <observation moodCode="EVN" classCode="OBS"> <templateId root="216.840.1.447874....4.2" /> <id nullFlavor="NA" /> <code codeSystem="local" code="HGB" displayName="HGB " /> <statusCode code="completed" /> <effectiveTime value= "621500703853" /> <value unit="g/dL" xsi:type="PQ" value="12.0" /> <interpretationCode codeSystem="local" code="*" /> < referenceRange> <observationRange> <text>14.0-18.0</text > </observationRange> </referenceRange> </observation > </component> <component> <observation moodCode="EVN" classCode="OBS"> <templateId root="16.840.1.399331.1022.4.2" /> <id nullFlavor="NA" /> <code codeSystem="local" code="MCH" displayName="MCH" /> <statusCode code="completed" /> < effectiveTime value="612617229593" /> <value unit="pg" xsi:type="PQ" value="27.1" /> <referenceRange> <observationRange> <text>27.0-32.0</text> </observationRange> </ referenceRange> </observation> </component> <component> <observation moodCode="EVN" classCode="OBS"> <templateId root= "10.29.840.1.559646.07.02.22.4.2" /> <id nullFlavor="NA" /> < code codeSystem="local" code="MCHC" displayName="MCHC" /> <statusCode code="completed" /> <effectiveTime value="048652078258" /> < value unit="g/dL" xsi:type="PQ" value="33.1" /> <referenceRange> <observationRange> <text>32.0-36.0</text> </ observationRange> </referenceRange> </observation> </ component> <component> <observation moodCode="EVN" classCode="OBS"> <templateId root="10.29.840.1.005912.10.2022.4.2" /> <id nullFlavor="NA" /> <code codeSystem="local" code="MCV" displayName="MCV " /> <statusCode code="completed" /> <effectiveTime value= "277453648973" /> <value unit="fL" xsi:type="PQ" value="82.1" /> <referenceRange> <observationRange> <text>82.0-99.0< /text> </observationRange> </referenceRange> </ observation> </component> <component> <observation moodCode= "EVN" classCode="OBS"> <templateId root="10.29.840.1.782806.10..22.4.2 " /> <id nullFlavor="NA" /> <code codeSystem="local" code="MPV " displayName="MPV" /> <statusCode code="completed" /> < effectiveTime value="279022061610" /> <value unit="fL" xsi:type="PQ" value="8.7" /> <interpretationCode codeSystem="local" code="*" /> <referenceRange> <observationRange> <text>9.4-12.3< /text> </observationRange> </referenceRange> </ observation> </component> <component> <observation moodCode= "EVN" classCode="OBS"> <templateId root="840.1.232477.07.02.22.4.2 " /> <id nullFlavor="NA" /> <code codeSystem="local" code="PLT " displayName="Platelet Count" /> <statusCode code="completed" /> <effectiveTime value="386267242602" /> <value unit="K/uL" xsi:type ="PQ" value="261" /> <referenceRange> <observationRange> <text>150-400</text> </observationRange> </ referenceRange> </observation> </component> <component> <observation moodCode="EVN" classCode="OBS"> <templateId root= "10.29.840.1.539856.10.20.22.4.2" /> <id nullFlavor="NA" /> < code codeSystem="local" code="RBC" displayName="RBC" /> <statusCode code="completed" /> <effectiveTime value="623725691482" /> < value unit="10*6/uL" xsi:type="PQ" value="4.42" /> <interpretationCode codeSystem="local" code="*" /> <referenceRange> < observationRange> <text>4.60-6.20</text> </ observationRange> </referenceRange> </observation> </ component> <component> <observation moodCode="EVN" classCode="OBS"> <templateId root="2.16.840.1.121876.10.20.22.4.2" /> <id nullFlavor="NA" /> <code codeSystem="local" code="RDW" displayName="RDW " /> <statusCode code="completed" /> <effectiveTime value= "108742817994" /> <value unit="%" xsi:type="PQ" value="14.2" /> <referenceRange> <observationRange> <text>11.5- 14.5</text> </observationRange> </referenceRange> </ observation> </component> <component> <observation moodCode= "EVN" classCode="OBS"> <templateId root="2.16.840.1.894790.10.20.22.4.2 " /> <id nullFlavor="NA" /> <code codeSystem="local" code= "WBCIR" displayName="WBC" /> <statusCode code="completed" /> < effectiveTime value="527130614949" /> <value unit="K/uL" xsi:type="PQ" value="16.0" /> <interpretationCode codeSystem="local" code="*" /> <referenceRange> <observationRange> <text>4.8-10.8 </text> </observationRange> </referenceRange> </ observation> </component> </organizer> </entry> <entry> <organizer moodCode="EVN" classCode="BATTERY"> <templateId root= "16.840.1.325016.10..22.4.1" /> <id nullFlavor="NA" /> <code codeSystem="local" code="RENAL" displayName="Renal Function Panel" /> < statusCode code="completed" /> <component> <observation moodCode= "EVN" classCode="OBS"> <templateId root="16.840.1.923550.10...4.2 " /> <id nullFlavor="NA" /> <code codeSystem="local" code="ALB " displayName="Albumin" /> <statusCode code="completed" /> < effectiveTime value="108633411307" /> <value unit="g/dL" xsi:type="PQ" value="2.1" /> <interpretationCode codeSystem="local" code="*" /> <referenceRange> <observationRange> <text>3.5-4.8</ text> </observationRange> </referenceRange> </ observation> </component> <component> <observation moodCode= "EVN" classCode="OBS"> <templateId root="16.840.1.856716.10..22.4.2 " /> <id nullFlavor="NA" /> <code codeSystem="local" code= "AGAP" displayName="Anion Gap" /> <statusCode code="completed" /> <effectiveTime value="627883365612" /> <value unit="mEq/L" xsi: type="PQ" value="8" /> <referenceRange> <observationRange> <text>3-20</text> </observationRange> </ referenceRange> </observation> </component> <component> <observation moodCode="EVN" classCode="OBS"> <templateId root= "216.840.1.451706.10.20.22.4.2" /> <id nullFlavor="NA" /> < code codeSystem="local" code="BUN" displayName="BUN" /> <statusCode code="completed" /> <effectiveTime value="" /> < value unit="mg/dL" xsi:type="PQ" value="15" /> <referenceRange> <observationRange> <text>4-20</text> </ observationRange> </referenceRange> </observation> </ component> <component> <observation moodCode="EVN" classCode="OBS"> <templateId root="10.29.840.1.454199.10.22.4.2" /> <id nullFlavor="NA" /> <code codeSystem="local" code="CA" displayName= "Calcium" /> <statusCode code="completed" /> <effectiveTime value="" /> <value unit="mg/dL" xsi:type="PQ" value="8.4" / > <interpretationCode codeSystem="local" code="*" /> < referenceRange> <observationRange> <text>8.6-10.0</text > </observationRange> </referenceRange> </observation > </component> <component> <observation moodCode="EVN" classCode="OBS"> <templateId root="10.29.840.1.766420.10.20.22.4.2" /> <id nullFlavor="NA" /> <code codeSystem="local" code="CL" displayName="Chloride" /> <statusCode code="completed" /> < effectiveTime value="300812376219" /> <value unit="mEq/L" xsi:type="PQ " value="101" /> <referenceRange> <observationRange> <text>99-109</text> </observationRange> </ referenceRange> </observation> </component> <component> <observation moodCode="EVN" classCode="OBS"> <templateId root= "2.16.840.1.804642.10..4.2" /> <id nullFlavor="NA" /> < code codeSystem="local" code="CO2" displayName="CO2" /> <statusCode code="completed" /> <effectiveTime value="" /> < value unit="mEq/L" xsi:type="PQ" value="25" /> <referenceRange> <observationRange> <text>22-32</text> </ observationRange> </referenceRange> </observation> </ component> <component> <observation moodCode="EVN" classCode="OBS"> <templateId root="216.840.1.040229.07.02.22.4.2" /> <id nullFlavor="NA" /> <code codeSystem="local" code="CREAT" displayName= "Creatinine" /> <statusCode code="completed" /> < effectiveTime value="" /> <value unit="mg/dL" xsi:type="PQ " value="1.00" /> <referenceRange> <observationRange> <text>0.64-1.27</text> </observationRange> </ referenceRange> </observation> </component> <component> <observation moodCode="EVN" classCode="OBS"> <templateId root= "216.840.1.310353.10..4.2" /> <id nullFlavor="NA" /> < code codeSystem="local" code="GLU" displayName="Glucose" /> < statusCode code="completed" /> <effectiveTime value="" /> <value unit="mg/dL" xsi:type="PQ" value="109" /> < interpretationCode codeSystem="local" code="*" /> <referenceRange> <observationRange> <text>70-100</text> </ observationRange> </referenceRange> </observation> </ component> <component> <observation moodCode="EVN" classCode="OBS"> <templateId root="10.29.840.1.507254.1022.4.2" /> <id nullFlavor="NA" /> <code codeSystem="local" code="PHOS" displayName= "Phosphorus" /> <statusCode code="completed" /> < effectiveTime value="396677481842" /> <value unit="mg/dL" xsi:type="PQ " value="2.5" /> <referenceRange> <observationRange> <text>2.4-4.7</text> </observationRange> </ referenceRange> </observation> </component> <component> <observation moodCode="EVN" classCode="OBS"> <templateId root= "840.1.396029.07.02.22.4.2" /> <id nullFlavor="NA" /> < code codeSystem="local" code="K" displayName="Potassium" /> < statusCode code="completed" /> <effectiveTime value="760815791955" /> <value unit="mEq/L" xsi:type="PQ" value="3.9" /> < referenceRange> <observationRange> <text>3.6-5.1</text> </observationRange> </referenceRange> </observation > </component> <component> <observation moodCode="EVN" classCode="OBS"> <templateId root="840.1.126824.2022.4.2" /> <id nullFlavor="NA" /> <code codeSystem="local" code="NA" displayName="Sodium" /> <statusCode code="completed" /> < effectiveTime value="195965205629" /> <value unit="mEq/L" xsi:type="PQ " value="134" /> <interpretationCode codeSystem="local" code="*" /> <referenceRange> <observationRange> <text>136-144 </text> </observationRange> </referenceRange> </ observation> </component> </organizer> </entry> <entry> <organizer moodCode="EVN" classCode="BATTERY"> <templateId root= "16.840.1.832583.10..22.4.1" /> <id nullFlavor="NA" /> <code codeSystem="local" code="MG" displayName="Magnesium" /> <statusCode code= "completed" /> <component> <observation moodCode="EVN" classCode= "OBS"> <templateId root="16.840.1.911600.10..22.4.2" /> < id nullFlavor="NA" /> <code codeSystem="local" code="MG" displayName= "Magnesium" /> <statusCode code="completed" /> <effectiveTime value="353105684275" /> <value unit="mg/dL" xsi:type="PQ" value="2.1" / > <referenceRange> <observationRange> <text>1.8 -2.5</text> </observationRange> </referenceRange> </ observation> </component> </organizer> </entry> <entry> <organizer moodCode="EVN" classCode="BATTERY"> <templateId root= "10.29.840.1.583534.10..22.4.1" /> <id nullFlavor="NA" /> <code codeSystem="local" code="GFR" displayName="eGFR" /> <statusCode code= "completed" /> <component> <observation moodCode="EVN" classCode= "OBS"> <templateId root="216.840.1.673130.10.22.4.2" /> < id nullFlavor="NA" /> <code codeSystem="local" code="GFR" displayName= "eGFR" /> <statusCode code="completed" /> <effectiveTime value ="786878484090" /> <value unit="mL/min" xsi:type="PQ" value=">60" / > <referenceRange> <observationRange> <text>&gt ;60</text> </observationRange> </referenceRange> </ observation> </component> </organizer> </entry> <entry> <organizer moodCode="EVN" classCode="BATTERY"> <templateId root= "216.840.1.250121.10..4.1" /> <id nullFlavor="NA" /> <code codeSystem="local" code="LSPBA" displayName="Flow, Basic LSP" /> < statusCode code="completed" /> <component> <observation moodCode= "EVN" classCode="OBS"> <templateId root="216.840.1.707785.10..22.4.2 " /> <id nullFlavor="NA" /> <code codeSystem="local" code= "CD19" displayName="CD19 (B Cells)" /> <statusCode code="completed" /> <effectiveTime value="106195527650" /> <value unit="%" xsi:type="PQ" value="6.8" /> <interpretationCode codeSystem="local" code="*" /> <referenceRange> <observationRange> <text>7.0-23.0</text> </observationRange> </referenceRange > </observation> </component> <component> <observation moodCode="EVN" classCode="OBS"> <templateId root= "216.840.1.247221.10..22.4.2" /> <id nullFlavor="NA" /> < code codeSystem="local" code="CD19A" displayName="CD19 Absolute" /> < statusCode code="completed" /> <effectiveTime value="" /> <value unit="Cells/mm3" xsi:type="PQ" value="65" /> < interpretationCode codeSystem="local" code="*" /> <referenceRange> <observationRange> <text>100-600</text> </ observationRange> </referenceRange> </observation> </ component> <component> <observation moodCode="EVN" classCode="OBS"> <templateId root="216.840.1.963825.10..4.2" /> <id nullFlavor="NA" /> <code codeSystem="local" code="CD3A" displayName= "CD3 Absolute" /> <statusCode code="completed" /> < effectiveTime value="" /> <value unit="Cells/mm3" xsi:type= "PQ" value="756" /> <interpretationCode codeSystem="local" code="*" /> <referenceRange> <observationRange> <text>950- 2350</text> </observationRange> </referenceRange> </ observation> </component> <component> <observation moodCode= "EVN" classCode="OBS"> <templateId root="216.840.1.083993.10..4.2 " /> <id nullFlavor="NA" /> <code codeSystem="local" code="CD3 " displayName="CD3 Peripheral T Cells" /> <statusCode code="completed" /> <effectiveTime value="" /> <value unit="%" xsi:type="PQ" value="78.8" /> <referenceRange> < observationRange> <text>60.0-85.0</text> </ observationRange> </referenceRange> </observation> </ component> <component> <observation moodCode="EVN" classCode="OBS"> <templateId root="216.840.1.404993.10.22.4.2" /> <id nullFlavor="NA" /> <code codeSystem="local" code="CD4AN" displayName= "CD4 Absolute" /> <statusCode code="completed" /> < effectiveTime value="756412396383" /> <value unit="Cells/mm3" xsi:type= "PQ" value="627" /> <referenceRange> <observationRange> <text>540-1600</text> </observationRange> </ referenceRange> </observation> </component> <component> <observation moodCode="EVN" classCode="OBS"> <templateId root= "216.840.1.001518.10..4.2" /> <id nullFlavor="NA" /> < code codeSystem="local" code="CD4N" displayName="CD4 [place] T Cell" /> <statusCode code="completed" /> <effectiveTime value="807556641510" /> <value unit="%" xsi:type="PQ" value="65.3" /> < interpretationCode codeSystem="local" code="*" /> <referenceRange> <observationRange> <text>29.0-59.0</text> </ observationRange> </referenceRange> </observation> </ component> <component> <observation moodCode="EVN" classCode="OBS"> <templateId root="216.840.1.950724.07.02.22.4.2" /> <id nullFlavor="NA" /> <code codeSystem="local" code="CD4N8" displayName= "CD4:CD8 Ratio" /> <statusCode code="completed" /> < effectiveTime value="" /> <value unit="" xsi:type="PQ" value="4.98" /> <interpretationCode codeSystem="local" code="*" /> <referenceRange> <observationRange> <text>1.00- 2.90</text> </observationRange> </referenceRange> </ observation> </component> <component> <observation moodCode= "EVN" classCode="OBS"> <templateId root="216.840.1.821395.07.02.224.2 " /> <id nullFlavor="NA" /> <code codeSystem="local" code= "CD56" displayName="CD56" /> <statusCode code="completed" /> < effectiveTime value="" /> <value unit="%" xsi:type="PQ " value="12.1" /> <referenceRange> <observationRange> <text>6.0-29.0</text> </observationRange> </ referenceRange> </observation> </component> <component> <observation moodCode="EVN" classCode="OBS"> <templateId root= "216.840.1.893693.07.02.22.4.2" /> <id nullFlavor="NA" /> < code codeSystem="local" code="CD56A" displayName="CD56 Absolute" /> < statusCode code="completed" /> <effectiveTime value="296956350467" /> <value unit="Cells/mm3" xsi:type="PQ" value="116" /> < referenceRange> <observationRange> <text>100-600</text> </observationRange> </referenceRange> </observation > </component> <component> <observation moodCode="EVN" classCode="OBS"> <templateId root="216.840.1.920964.10..4.2" /> <id nullFlavor="NA" /> <code codeSystem="local" code="CD8A" displayName="CD8 Absolute" /> <statusCode code="completed" /> <effectiveTime value="085512210522" /> <value unit="Cells/mm3" xsi:type ="PQ" value="126" /> <interpretationCode codeSystem="local" code="*" / > <referenceRange> <observationRange> <text>300 -900</text> </observationRange> </referenceRange> </ observation> </component> <component> <observation moodCode= "EVN" classCode="OBS"> <templateId root="10.29.840.1.745240.07.02.22.4.2 " /> <id nullFlavor="NA" /> <code codeSystem="local" code="CD8 " displayName="CD8 Suppressor T Cells" /> <statusCode code="completed" /> <effectiveTime value="253374585286" /> <value unit="%" xsi:type="PQ" value="13.1" /> <interpretationCode codeSystem="local" code="*" /> <referenceRange> <observationRange> <text>18.0-36.0</text> </observationRange> </ referenceRange> </observation> </component> <component> <observation moodCode="EVN" classCode="OBS"> <templateId root= "16.840.1.967871..22.4.2" /> <id nullFlavor="NA" /> < code codeSystem="local" code="LYMAB" displayName="Lymphocytes, Absolute" /> <statusCode code="completed" /> <effectiveTime value= "856796652720" /> <value unit="mm3" xsi:type="PQ" value="960" /> <interpretationCode codeSystem="local" code="*" /> <referenceRange > <observationRange> <text>9856-3155</text> < /observationRange> </referenceRange> </observation> </ component> </organizer> </entry> <entry> <organizer moodCode="EVN" classCode="BATTERY"> <templateId root="16.840.1.965192.10..22.4.1" /> <id nullFlavor="NA" /> <code codeSystem="local" code="CBCND" displayName="CBC With Platelet No Differential" /> <statusCode code= "completed" /> <component> <observation moodCode="EVN" classCode= "OBS"> <templateId root="16.840.1.928869.10..22.4.2" /> < id nullFlavor="NA" /> <code codeSystem="local" code="HCT" displayName= "HCT" /> <statusCode code="completed" /> <effectiveTime value= "483827164442" /> <value unit="%" xsi:type="PQ" value="38.6" /> <interpretationCode codeSystem="local" code="*" /> < referenceRange> <observationRange> <text>42.0-52.0</text > </observationRange> </referenceRange> </observation > </component> <component> <observation moodCode="EVN" classCode="OBS"> <templateId root="16.840.1.067256.10..22.4.2" /> <id nullFlavor="NA" /> <code codeSystem="local" code="HGB" displayName="HGB" /> <statusCode code="completed" /> < effectiveTime value="" /> <value unit="g/dL" xsi:type="PQ" value="12.7" /> <interpretationCode codeSystem="local" code="*" /> <referenceRange> <observationRange> <text>14.0- 18.0</text> </observationRange> </referenceRange> </ observation> </component> <component> <observation moodCode= "EVN" classCode="OBS"> <templateId root="216.840.1.031094.10.20.22.4.2 " /> <id nullFlavor="NA" /> <code codeSystem="local" code="MCH " displayName="MCH" /> <statusCode code="completed" /> < effectiveTime value="" /> <value unit="pg" xsi:type="PQ" value="27.3" /> <referenceRange> <observationRange> <text>27.0-32.0</text> </observationRange> </ referenceRange> </observation> </component> <component> <observation moodCode="EVN" classCode="OBS"> <templateId root= "216.840.1.079562.10..22.4.2" /> <id nullFlavor="NA" /> < code codeSystem="local" code="MCHC" displayName="MCHC" /> <statusCode code="completed" /> <effectiveTime value="" /> < value unit="g/dL" xsi:type="PQ" value="32.9" /> <referenceRange> <observationRange> <text>32.0-36.0</text> </ observationRange> </referenceRange> </observation> </ component> <component> <observation moodCode="EVN" classCode="OBS"> <templateId root="216.840.1.691081.22.4.2" /> <id nullFlavor="NA" /> <code codeSystem="local" code="MCV" displayName="MCV " /> <statusCode code="completed" /> <effectiveTime value= "" /> <value unit="fL" xsi:type="PQ" value="83.0" /> <referenceRange> <observationRange> <text>82.0-99.0< /text> </observationRange> </referenceRange> </ observation> </component> <component> <observation moodCode= "EVN" classCode="OBS"> <templateId root="216.840.1.159778.07.02.22.4.2 " /> <id nullFlavor="NA" /> <code codeSystem="local" code="MPV " displayName="MPV" /> <statusCode code="completed" /> < effectiveTime value="[id number]" /> <value unit="fL" xsi:type="PQ" value="9.0" /> <interpretationCode codeSystem="local" code="*" /> <referenceRange> <observationRange> <text>9.4-12.3< /text> </observationRange> </referenceRange> </ observation> </component> <component> <observation moodCode= "EVN" classCode="OBS"> <templateId root="16.840.1.150196.1022.4.2 " /> <id nullFlavor="NA" /> <code codeSystem="local" code="PLT " displayName="Platelet Count" /> <statusCode code="completed" /> <effectiveTime value="" /> <value unit="K/uL" xsi:type ="PQ" value="253" /> <referenceRange> <observationRange> <text>150-400</text> </observationRange> </ referenceRange> </observation> </component> <component> <observation moodCode="EVN" classCode="OBS"> <templateId root= "216.840.1.585285.10..22.4.2" /> <id nullFlavor="NA" /> < code codeSystem="local" code="RBC" displayName="RBC" /> <statusCode code="completed" /> <effectiveTime value="" /> < value unit="10*6/uL" xsi:type="PQ" value="4.65" /> <referenceRange> <observationRange> <text>4.60-6.20</text> </ observationRange> </referenceRange> </observation> </ component> <component> <observation moodCode="EVN" classCode="OBS"> <templateId root="10.29.840.1.069717.22.4.2" /> <id nullFlavor="NA" /> <code codeSystem="local" code="RDW" displayName="RDW " /> <statusCode code="completed" /> <effectiveTime value= "" /> <value unit="%" xsi:type="PQ" value="14.5" /> <referenceRange> <observationRange> <text>11.5- 14.5</text> </observationRange> </referenceRange> </ observation> </component> <component> <observation moodCode= "EVN" classCode="OBS"> <templateId root="10.29.840.1.060156.10.20.22.4.2 " /> <id nullFlavor="NA" /> <code codeSystem="local" code= "WBCIR" displayName="WBC" /> <statusCode code="completed" /> < effectiveTime value="[id number]" /> <value unit="K/uL" xsi:type="PQ" value="13.0" /> <interpretationCode codeSystem="local" code="*" /> <referenceRange> <observationRange> <text>4.8-10.8 </text> </observationRange> </referenceRange> </ observation> </component> </organizer> </entry> <entry> <organizer moodCode="EVN" classCode="BATTERY"> <templateId root= "10.29.840.1.055470.10.2022.4.1" /> <id nullFlavor="NA" /> <code codeSystem="local" code="BMP" displayName="Basic Metabolic Panel (BMP)" /> <statusCode code="completed" /> <component> <observation moodCode= "EVN" classCode="OBS"> <templateId root="10.29.840.1.207738.10..22.4.2 " /> <id nullFlavor="NA" /> <code codeSystem="local" code= "AGAP" displayName="Anion Gap" /> <statusCode code="completed" /> <effectiveTime value="" /> <value unit="mEq/L" xsi: type="PQ" value="8" /> <referenceRange> <observationRange> <text>3-20</text> </observationRange> </ referenceRange> </observation> </component> <component> <observation moodCode="EVN" classCode="OBS"> <templateId root= "10.29.840.1.114134.10.2022.4.2" /> <id nullFlavor="NA" /> < code codeSystem="local" code="BUN" displayName="BUN" /> <statusCode code="completed" /> <effectiveTime value="[id number]" /> < value unit="mg/dL" xsi:type="PQ" value="15" /> <referenceRange> <observationRange> <text>4-20</text> </ observationRange> </referenceRange> </observation> </ component> <component> <observation moodCode="EVN" classCode="OBS"> <templateId root="10.29.840.1.397727.22.4.2" /> <id nullFlavor="NA" /> <code codeSystem="local" code="CA" displayName= "Calcium" /> <statusCode code="completed" /> <effectiveTime value="" /> <value unit="mg/dL" xsi:type="PQ" value="8.7" / > <referenceRange> <observationRange> <text>8.6 -10.0</text> </observationRange> </referenceRange> </ observation> </component> <component> <observation moodCode= "EVN" classCode="OBS"> <templateId root="10.29.840.1.455314.07.02.22.4.2 " /> <id nullFlavor="NA" /> <code codeSystem="local" code="CL " displayName="Chloride" /> <statusCode code="completed" /> < effectiveTime value="" /> <value unit="mEq/L" xsi:type="PQ " value="98" /> <interpretationCode codeSystem="local" code="*" /> <referenceRange> <observationRange> <text>99-109</ text> </observationRange> </referenceRange> </ observation> </component> <component> <observation moodCode= "EVN" classCode="OBS"> <templateId root="10.29.840.1.930657..22.4.2 " /> <id nullFlavor="NA" /> <code codeSystem="local" code="CO2 " displayName="CO2" /> <statusCode code="completed" /> < effectiveTime value="" /> <value unit="mEq/L" xsi:type="PQ " value="27" /> <referenceRange> <observationRange> <text>22-32</text> </observationRange> </ referenceRange> </observation> </component> <component> <observation moodCode="EVN" classCode="OBS"> <templateId root= "216.840.1.736711.10..22.4.2" /> <id nullFlavor="NA" /> < code codeSystem="local" code="CREAT" displayName="Creatinine" /> < statusCode code="completed" /> <effectiveTime value="" /> <value unit="mg/dL" xsi:type="PQ" value="0.90" /> < referenceRange> <observationRange> <text>0.64-1.27</text > </observationRange> </referenceRange> </observation > </component> <component> <observation moodCode="EVN" classCode="OBS"> <templateId root="10.29.840.1.512340.10...4.2" /> <id nullFlavor="NA" /> <code codeSystem="local" code="GLU" displayName="Glucose" /> <statusCode code="completed" /> < effectiveTime value="" /> <value unit="mg/dL" xsi:type="PQ " value="115" /> <interpretationCode codeSystem="local" code="*" /> <referenceRange> <observationRange> <text>70-100< /text> </observationRange> </referenceRange> </ observation> </component> <component> <observation moodCode= "EVN" classCode="OBS"> <templateId root="10.29.840.1.004098.10..22.4.2 " /> <id nullFlavor="NA" /> <code codeSystem="local" code="K" displayName="Potassium" /> <statusCode code="completed" /> < effectiveTime value="006754450083" /> <value unit="mEq/L" xsi:type="PQ " value="4.0" /> <referenceRange> <observationRange> <text>3.6-5.1</text> </observationRange> </ referenceRange> </observation> </component> <component> <observation moodCode="EVN" classCode="OBS"> <templateId root= "840.1.522621.10..4.2" /> <id nullFlavor="NA" /> < code codeSystem="local" code="NA" displayName="Sodium" /> <statusCode code="completed" /> <effectiveTime value="893922337224" /> < value unit="mEq/L" xsi:type="PQ" value="133" /> <interpretationCode codeSystem="local" code="*" /> <referenceRange> < observationRange> <text>136-144</text> </ observationRange> </referenceRange> </observation> </ component> </organizer> </entry> <entry> <organizer moodCode="EVN" classCode="BATTERY"> <templateId root="840.1.199865.22.4.1" /> <id nullFlavor="NA" /> <code codeSystem="local" code="MG" displayName= "Magnesium" /> <statusCode code="completed" /> <component> < observation moodCode="EVN" classCode="OBS"> <templateId root= "10.29.840.1.971223.10.2022.4.2" /> <id nullFlavor="NA" /> < code codeSystem="local" code="MG" displayName="Magnesium" /> < statusCode code="completed" /> <effectiveTime value="833731128477" /> <value unit="mg/dL" xsi:type="PQ" value="2.2" /> < referenceRange> <observationRange> <text>1.8-2.5</text> </observationRange> </referenceRange> </observation > </component> </organizer> </entry> <entry> <organizer moodCode= "EVN" classCode="BATTERY"> <templateId root="16.840.1.735445.10.20.22.4.1 " /> <id nullFlavor="NA" /> <code codeSystem="local" code="PHOS" displayName="Phosphorus" /> <statusCode code="completed" /> <component > <observation moodCode="EVN" classCode="OBS"> <templateId root= "16.840.1.622740.10.22.4.2" /> <id nullFlavor="NA" /> < code codeSystem="local" code="PHOS" displayName="Phosphorus" /> < statusCode code="completed" /> <effectiveTime value="504373033669" /> <value unit="mg/dL" xsi:type="PQ" value="3.0" /> < referenceRange> <observationRange> <text>2.4-4.7</text> </observationRange> </referenceRange> </observation > </component> </organizer> </entry> <entry> <organizer moodCode= "EVN" classCode="BATTERY"> <templateId root="16.840.1.627046.10.2022.4.1 " /> <id nullFlavor="NA" /> <code codeSystem="local" code="GFR" displayName="eGFR" /> <statusCode code="completed" /> <component> <observation moodCode="EVN" classCode="OBS"> <templateId root= "10.29.840.1.856452.10..22.4.2" /> <id nullFlavor="NA" /> < code codeSystem="local" code="GFR" displayName="eGFR" /> <statusCode code="completed" /> <effectiveTime value="307247772385" /> < value unit="mL/min" xsi:type="PQ" value=">60" /> <referenceRange> <observationRange> <text>>60</text> </ observationRange> </referenceRange> </observation> </ component> </organizer> </entry> <entry> <organizer moodCode="EVN" classCode="BATTERY"> <templateId root="10.29.840.1.956714.10..22.4.1" /> <id nullFlavor="NA" /> <code codeSystem="local" code="CBCND" displayName="CBC With Platelet No Differential" /> <statusCode code= "completed" /> <component> <observation moodCode="EVN" classCode= "OBS"> <templateId root="10.29.840.1.429135.10..22.4.2" /> < id nullFlavor="NA" /> <code codeSystem="local" code="HCT" displayName= "HCT" /> <statusCode code="completed" /> <effectiveTime value= "599066540608" /> <value unit="%" xsi:type="PQ" value="37.8" /> <interpretationCode codeSystem="local" code="*" /> < referenceRange> <observationRange> <text>42.0-52.0</text > </observationRange> </referenceRange> </observation > </component> <component> <observation moodCode="EVN" classCode="OBS"> <templateId root="10.29.830.1.788394.10..22.4.2" /> <id nullFlavor="NA" /> <code codeSystem="local" code="HGB" displayName="HGB" /> <statusCode code="completed" /> < effectiveTime value="" /> <value unit="g/dL" xsi:type="PQ" value="12.5" /> <interpretationCode codeSystem="local" code="*" /> <referenceRange> <observationRange> <text>14.0- 18.0</text> </observationRange> </referenceRange> </ observation> </component> <component> <observation moodCode= "EVN" classCode="OBS"> <templateId root="16.840.1.084304.10...4.2 " /> <id nullFlavor="NA" /> <code codeSystem="local" code="MCH " displayName="MCH" /> <statusCode code="completed" /> < effectiveTime value="" /> <value unit="pg" xsi:type="PQ" value="27.4" /> <referenceRange> <observationRange> <text>27.0-32.0</text> </observationRange> </ referenceRange> </observation> </component> <component> <observation moodCode="EVN" classCode="OBS"> <templateId root= "16.840.1.973697.10.20.22.4.2" /> <id nullFlavor="NA" /> < code codeSystem="local" code="MCHC" displayName="MCHC" /> <statusCode code="completed" /> <effectiveTime value="" /> < value unit="g/dL" xsi:type="PQ" value="33.1" /> <referenceRange> <observationRange> <text>32.0-36.0</text> </ observationRange> </referenceRange> </observation> </ component> <component> <observation moodCode="EVN" classCode="OBS"> <templateId root="216.840.1.472421.1022.4.2" /> <id nullFlavor="NA" /> <code codeSystem="local" code="MCV" displayName="MCV " /> <statusCode code="completed" /> <effectiveTime value= "" /> <value unit="fL" xsi:type="PQ" value="82.7" /> <referenceRange> <observationRange> <text>82.0-99.0< /text> </observationRange> </referenceRange> </ observation> </component> <component> <observation moodCode= "EVN" classCode="OBS"> <templateId root="10.29.840.1.140871.07.02.22.4.2 " /> <id nullFlavor="NA" /> <code codeSystem="local" code="MPV " displayName="MPV" /> <statusCode code="completed" /> < effectiveTime value="" /> <value unit="fL" xsi:type="PQ" value="9.5" /> <referenceRange> <observationRange> <text>9.4-12.3</text> </observationRange> </ referenceRange> </observation> </component> <component> <observation moodCode="EVN" classCode="OBS"> <templateId root= "10.29.840.1.828535.22.4.2" /> <id nullFlavor="NA" /> < code codeSystem="local" code="PLT" displayName="Platelet Count" /> < statusCode code="completed" /> <effectiveTime value="" /> <value unit="K/uL" xsi:type="PQ" value="235" /> < referenceRange> <observationRange> <text>150-400</text> </observationRange> </referenceRange> </observation > </component> <component> <observation moodCode="EVN" classCode="OBS"> <templateId root="16.840.1.854715.10.20.22.4.2" /> <id nullFlavor="NA" /> <code codeSystem="local" code="RBC" displayName="RBC" /> <statusCode code="completed" /> < effectiveTime value="745154415801" /> <value unit="10*6/uL" xsi:type= "PQ" value="4.57" /> <interpretationCode codeSystem="local" code="*" / > <referenceRange> <observationRange> <text> 4.60-6.20</text> </observationRange> </referenceRange> </observation> </component> <component> <observation moodCode="EVN" classCode="OBS"> <templateId root= "10.29.840.1.746932..22.4.2" /> <id nullFlavor="NA" /> < code codeSystem="local" code="RDW" displayName="RDW" /> <statusCode code="completed" /> <effectiveTime value="970805892778" /> < value unit="%" xsi:type="PQ" value="14.2" /> <referenceRange> <observationRange> <text>11.5-14.5</text> </ observationRange> </referenceRange> </observation> </ component> <component> <observation moodCode="EVN" classCode="OBS"> <templateId root="16.840.1.908988.10.20.22.4.2" /> <id nullFlavor="NA" /> <code codeSystem="local" code="WBCIR" displayName= "WBC" /> <statusCode code="completed" /> <effectiveTime value= "912304649578" /> <value unit="K/uL" xsi:type="PQ" value="10.5" /> <referenceRange> <observationRange> <text>4.8-10.8 </text> </observationRange> </referenceRange> </ observation> </component> </organizer> </entry> <entry> <organizer moodCode="EVN" classCode="BATTERY"> <templateId root= "16.840.1.971214.10..22.4.1" /> <id nullFlavor="NA" /> <code codeSystem="local" code="RENAL" displayName="Renal Function Panel" /> < statusCode code="completed" /> <component> <observation moodCode= "EVN" classCode="OBS"> <templateId root="16.840.1.102546.10.20.22.4.2 " /> <id nullFlavor="NA" /> <code codeSystem="local" code="ALB " displayName="Albumin" /> <statusCode code="completed" /> < effectiveTime value="259456447323" /> <value unit="g/dL" xsi:type="PQ" value="2.2" /> <interpretationCode codeSystem="local" code="*" /> <referenceRange> <observationRange> <text>3.5-4.8</ text> </observationRange> </referenceRange> </ observation> </component> <component> <observation moodCode= "EVN" classCode="OBS"> <templateId root="16.840.1.246974.10.20.22.4.2 " /> <id nullFlavor="NA" /> <code codeSystem="local" code= "AGAP" displayName="Anion Gap" /> <statusCode code="completed" /> <effectiveTime value="" /> <value unit="mEq/L" xsi: type="PQ" value="7" /> <referenceRange> <observationRange> <text>3-20</text> </observationRange> </ referenceRange> </observation> </component> <component> <observation moodCode="EVN" classCode="OBS"> <templateId root= "10.29.840.1.724927..22.4.2" /> <id nullFlavor="NA" /> < code codeSystem="local" code="BUN" displayName="BUN" /> <statusCode code="completed" /> <effectiveTime value="" /> < value unit="mg/dL" xsi:type="PQ" value="16" /> <referenceRange> <observationRange> <text>4-20</text> </ observationRange> </referenceRange> </observation> </ component> <component> <observation moodCode="EVN" classCode="OBS"> <templateId root="10.29.840.1.169903.22.4.2" /> <id nullFlavor="NA" /> <code codeSystem="local" code="CA" displayName= "Calcium" /> <statusCode code="completed" /> <effectiveTime value="" /> <value unit="mg/dL" xsi:type="PQ" value="8.6" / > <referenceRange> <observationRange> <text>8.6 -10.0</text> </observationRange> </referenceRange> </ observation> </component> <component> <observation moodCode= "EVN" classCode="OBS"> <templateId root="10.29.840.1.312866.22.4.2 " /> <id nullFlavor="NA" /> <code codeSystem="local" code="CL " displayName="Chloride" /> <statusCode code="completed" /> < effectiveTime value="" /> <value unit="mEq/L" xsi:type="PQ " value="98" /> <interpretationCode codeSystem="local" code="*" /> <referenceRange> <observationRange> <text>99-109</ text> </observationRange> </referenceRange> </ observation> </component> <component> <observation moodCode= "EVN" classCode="OBS"> <templateId root="216.840.1.841719...4.2 " /> <id nullFlavor="NA" /> <code codeSystem="local" code="CO2 " displayName="CO2" /> <statusCode code="completed" /> < effectiveTime value="" /> <value unit="mEq/L" xsi:type="PQ " value="28" /> <referenceRange> <observationRange> <text>22-32</text> </observationRange> </ referenceRange> </observation> </component> <component> <observation moodCode="EVN" classCode="OBS"> <templateId root= "2.16.840.1.065363.10...4.2" /> <id nullFlavor="NA" /> < code codeSystem="local" code="CREAT" displayName="Creatinine" /> < statusCode code="completed" /> <effectiveTime value="" /> <value unit="mg/dL" xsi:type="PQ" value="0.88" /> < referenceRange> <observationRange> <text>0.64-1.27</text > </observationRange> </referenceRange> </observation > </component> <component> <observation moodCode="EVN" classCode="OBS"> <templateId root="10.29.840.1.507687.10.20.22.4.2" /> <id nullFlavor="NA" /> <code codeSystem="local" code="GLU" displayName="Glucose" /> <statusCode code="completed" /> < effectiveTime value="" /> <value unit="mg/dL" xsi:type="PQ " value="96" /> <referenceRange> <observationRange> <text>70-100</text> </observationRange> </ referenceRange> </observation> </component> <component> <observation moodCode="EVN" classCode="OBS"> <templateId root= "10.29.840.1.781201.10.20.22.4.2" /> <id nullFlavor="NA" /> < code codeSystem="local" code="PHOS" displayName="Phosphorus" /> < statusCode code="completed" /> <effectiveTime value="863828932975" /> <value unit="mg/dL" xsi:type="PQ" value="3.2" /> < referenceRange> <observationRange> <text>2.4-4.7</text> </observationRange> </referenceRange> </observation > </component> <component> <observation moodCode="EVN" classCode="OBS"> <templateId root="10.29.840.1.993492.10.20.22.4.2" /> <id nullFlavor="NA" /> <code codeSystem="local" code="K" displayName="Potassium" /> <statusCode code="completed" /> < effectiveTime value="158385715571" /> <value unit="mEq/L" xsi:type="PQ " value="4.1" /> <referenceRange> <observationRange> <text>3.6-5.1</text> </observationRange> </ referenceRange> </observation> </component> <component> <observation moodCode="EVN" classCode="OBS"> <templateId root= "216.840.1.935284.10..22.4.2" /> <id nullFlavor="NA" /> < code codeSystem="local" code="NA" displayName="Sodium" /> <statusCode code="completed" /> <effectiveTime value="002864459299" /> < value unit="mEq/L" xsi:type="PQ" value="133" /> <interpretationCode codeSystem="local" code="*" /> <referenceRange> < observationRange> <text>136-144</text> </ observationRange> </referenceRange> </observation> </ component> </organizer> </entry> <entry> <organizer moodCode="EVN" classCode="BATTERY"> <templateId root="216.840.1.202560.10..22.4.1" /> <id nullFlavor="NA" /> <code codeSystem="local" code="MG" displayName= "Magnesium" /> <statusCode code="completed" /> <component> < observation moodCode="EVN" classCode="OBS"> <templateId root= "216.840.1.421699.10..22.4.2" /> <id nullFlavor="NA" /> < code codeSystem="local" code="MG" displayName="Magnesium" /> < statusCode code="completed" /> <effectiveTime value="319770251659" /> <value unit="mg/dL" xsi:type="PQ" value="2.2" /> < referenceRange> <observationRange> <text>1.8-2.5</text> </observationRange> </referenceRange> </observation > </component> </organizer> </entry> <entry> <organizer moodCode= "EVN" classCode="BATTERY"> <templateId root="840.1.469552.10..4.1 " /> <id nullFlavor="NA" /> <code codeSystem="local" code="GFR" displayName="eGFR" /> <statusCode code="completed" /> <component> <observation moodCode="EVN" classCode="OBS"> <templateId root= "840.1.942699.07.02.22.4.2" /> <id nullFlavor="NA" /> < code codeSystem="local" code="GFR" displayName="eGFR" /> <statusCode code="completed" /> <effectiveTime value="001745622909" /> < value unit="mL/min" xsi:type="PQ" value=">60" /> <referenceRange> <observationRange> <text>>60</text> </ observationRange> </referenceRange> </observation> </ component> </organizer> </entry> <entry> <organizer moodCode="EVN" classCode="BATTERY"> <templateId root="840.1.471812.07.02.22.4.1" /> <id nullFlavor="NA" /> <code codeSystem="local" code="CBCND" displayName="CBC With Platelet No Differential" /> <statusCode code= "completed" /> <component> <observation moodCode="EVN" classCode= "OBS"> <templateId root="840.1.323047.07.02.22.4.2" /> < id nullFlavor="NA" /> <code codeSystem="local" code="HCT" displayName= "HCT" /> <statusCode code="completed" /> <effectiveTime value= "257962880698" /> <value unit="%" xsi:type="PQ" value="37.9" /> <interpretationCode codeSystem="local" code="*" /> < referenceRange> <observationRange> <text>42.0-52.0</text > </observationRange> </referenceRange> </observation > </component> <component> <observation moodCode="EVN" classCode="OBS"> <templateId root="216.840.1.332337.10.4.2" /> <id nullFlavor="NA" /> <code codeSystem="local" code="HGB" displayName="HGB" /> <statusCode code="completed" /> < effectiveTime value="" /> <value unit="g/dL" xsi:type="PQ" value="12.4" /> <interpretationCode codeSystem="local" code="*" /> <referenceRange> <observationRange> <text>14.0- 18.0</text> </observationRange> </referenceRange> </ observation> </component> <component> <observation moodCode= "EVN" classCode="OBS"> <templateId root="216.840.1.939562.10..4.2 " /> <id nullFlavor="NA" /> <code codeSystem="local" code="MCH " displayName="MCH" /> <statusCode code="completed" /> < effectiveTime value="" /> <value unit="pg" xsi:type="PQ" value="27.0" /> <referenceRange> <observationRange> <text>27.0-32.0</text> </observationRange> </ referenceRange> </observation> </component> <component> <observation moodCode="EVN" classCode="OBS"> <templateId root= "216.840.1.424992.22.4.2" /> <id nullFlavor="NA" /> < code codeSystem="local" code="MCHC" displayName="MCHC" /> <statusCode code="completed" /> <effectiveTime value="994723764390" /> < value unit="g/dL" xsi:type="PQ" value="32.7" /> <referenceRange> <observationRange> <text>32.0-36.0</text> </ observationRange> </referenceRange> </observation> </ component> <component> <observation moodCode="EVN" classCode="OBS"> <templateId root="216.840.1.403054.22.4.2" /> <id nullFlavor="NA" /> <code codeSystem="local" code="MCV" displayName="MCV " /> <statusCode code="completed" /> <effectiveTime value= "" /> <value unit="fL" xsi:type="PQ" value="82.4" /> <referenceRange> <observationRange> <text>82.0-99.0< /text> </observationRange> </referenceRange> </ observation> </component> <component> <observation moodCode= "EVN" classCode="OBS"> <templateId root="216.840.1.347278.10.22.4.2 " /> <id nullFlavor="NA" /> <code codeSystem="local" code="MPV " displayName="MPV" /> <statusCode code="completed" /> < effectiveTime value="712350746130" /> <value unit="fL" xsi:type="PQ" value="8.8" /> <interpretationCode codeSystem="local" code="*" /> <referenceRange> <observationRange> <text>9.4-12.3< /text> </observationRange> </referenceRange> </ observation> </component> <component> <observation moodCode= "EVN" classCode="OBS"> <templateId root="216.840.1.523970.102022.4.2 " /> <id nullFlavor="NA" /> <code codeSystem="local" code="PLT " displayName="Platelet Count" /> <statusCode code="completed" /> <effectiveTime value="" /> <value unit="K/uL" xsi:type ="PQ" value="213" /> <referenceRange> <observationRange> <text>150-400</text> </observationRange> </ referenceRange> </observation> </component> <component> <observation moodCode="EVN" classCode="OBS"> <templateId root= "10.29.840.1.169702.07.02.22.4.2" /> <id nullFlavor="NA" /> < code codeSystem="local" code="RBC" displayName="RBC" /> <statusCode code="completed" /> <effectiveTime value="" /> < value unit="10*6/uL" xsi:type="PQ" value="4.60" /> <referenceRange> <observationRange> <text>4.60-6.20</text> </ observationRange> </referenceRange> </observation> </ component> <component> <observation moodCode="EVN" classCode="OBS"> <templateId root="10.29.840.1.196026.10.2022.4.2" /> <id nullFlavor="NA" /> <code codeSystem="local" code="RDW" displayName="RDW " /> <statusCode code="completed" /> <effectiveTime value= "" /> <value unit="%" xsi:type="PQ" value="13.9" /> <referenceRange> <observationRange> <text>11.5- 14.5</text> </observationRange> </referenceRange> </ observation> </component> <component> <observation moodCode= "EVN" classCode="OBS"> <templateId root="10.29.840.1.522179.10.20.22.4.2 " /> <id nullFlavor="NA" /> <code codeSystem="local" code= "WBCIR" displayName="WBC" /> <statusCode code="completed" /> < effectiveTime value="[id number]" /> <value unit="K/uL" xsi:type="PQ" value="9.8" /> <referenceRange> <observationRange> <text>4.8-10.8</text> </observationRange> </ referenceRange> </observation> </component> </organizer> </entry > <entry> <organizer moodCode="EVN" classCode="BATTERY"> <templateId root="10.29.840.1.943262.10..22.4.1" /> <id nullFlavor="NA" /> <code codeSystem="local" code="RENAL" displayName="Renal Function Panel" /> < statusCode code="completed" /> <component> <observation moodCode= "EVN" classCode="OBS"> <templateId root="10.29.840.1.167187.10.20.22.4.2 " /> <id nullFlavor="NA" /> <code codeSystem="local" code="ALB " displayName="Albumin" /> <statusCode code="completed" /> < effectiveTime value="341601089444" /> <value unit="g/dL" xsi:type="PQ" value="2.3" /> <interpretationCode codeSystem="local" code="*" /> <referenceRange> <observationRange> <text>3.5-4.8</ text> </observationRange> </referenceRange> </ observation> </component> <component> <observation moodCode= "EVN" classCode="OBS"> <templateId root="16.840.1.936689.10.2022.4.2 " /> <id nullFlavor="NA" /> <code codeSystem="local" code= "AGAP" displayName="Anion Gap" /> <statusCode code="completed" /> <effectiveTime value="" /> <value unit="mEq/L" xsi: type="PQ" value="9" /> <referenceRange> <observationRange> <text>3-20</text> </observationRange> </ referenceRange> </observation> </component> <component> <observation moodCode="EVN" classCode="OBS"> <templateId root= "10.29.840.1.004168.1022.4.2" /> <id nullFlavor="NA" /> < code codeSystem="local" code="BUN" displayName="BUN" /> <statusCode code="completed" /> <effectiveTime value="" /> < value unit="mg/dL" xsi:type="PQ" value="15" /> <referenceRange> <observationRange> <text>4-20</text> </ observationRange> </referenceRange> </observation> </ component> <component> <observation moodCode="EVN" classCode="OBS"> <templateId root="10.29.840.1.554876.10.2022.4.2" /> <id nullFlavor="NA" /> <code codeSystem="local" code="CA" displayName= "Calcium" /> <statusCode code="completed" /> <effectiveTime value="" /> <value unit="mg/dL" xsi:type="PQ" value="8.8" / > <referenceRange> <observationRange> <text>8.6 -10.0</text> </observationRange> </referenceRange> </ observation> </component> <component> <observation moodCode= "EVN" classCode="OBS"> <templateId root="16.840.1.104755.10.22.4.2 " /> <id nullFlavor="NA" /> <code codeSystem="local" code="CL " displayName="Chloride" /> <statusCode code="completed" /> < effectiveTime value="" /> <value unit="mEq/L" xsi:type="PQ " value="98" /> <interpretationCode codeSystem="local" code="*" /> <referenceRange> <observationRange> <text>99-109</ text> </observationRange> </referenceRange> </ observation> </component> <component> <observation moodCode= "EVN" classCode="OBS"> <templateId root="840.1.948262.10.4.2 " /> <id nullFlavor="NA" /> <code codeSystem="local" code="CO2 " displayName="CO2" /> <statusCode code="completed" /> < effectiveTime value="" /> <value unit="mEq/L" xsi:type="PQ " value="26" /> <referenceRange> <observationRange> <text>22-32</text> </observationRange> </ referenceRange> </observation> </component> <component> <observation moodCode="EVN" classCode="OBS"> <templateId root= "10.29.840.1.213830.10.20.22.4.2" /> <id nullFlavor="NA" /> < code codeSystem="local" code="CREAT" displayName="Creatinine" /> < statusCode code="completed" /> <effectiveTime value="923460794468" /> <value unit="mg/dL" xsi:type="PQ" value="0.96" /> < referenceRange> <observationRange> <text>0.64-1.27</text > </observationRange> </referenceRange> </observation > </component> <component> <observation moodCode="EVN" classCode="OBS"> <templateId root="16.840.1.677702.10.20.22.4.2" /> <id nullFlavor="NA" /> <code codeSystem="local" code="GLU" displayName="Glucose" /> <statusCode code="completed" /> < effectiveTime value="" /> <value unit="mg/dL" xsi:type="PQ " value="95" /> <referenceRange> <observationRange> <text>70-100</text> </observationRange> </ referenceRange> </observation> </component> <component> <observation moodCode="EVN" classCode="OBS"> <templateId root= "16.840.1.487993.10.20.22.4.2" /> <id nullFlavor="NA" /> < code codeSystem="local" code="PHOS" displayName="Phosphorus" /> < statusCode code="completed" /> <effectiveTime value="427482171979" /> <value unit="mg/dL" xsi:type="PQ" value="3.5" /> < referenceRange> <observationRange> <text>2.4-4.7</text> </observationRange> </referenceRange> </observation > </component> <component> <observation moodCode="EVN" classCode="OBS"> <templateId root="10.29.840.1.369598.22.4.2" /> <id nullFlavor="NA" /> <code codeSystem="local" code="K" displayName="Potassium" /> <statusCode code="completed" /> < effectiveTime value="388734858273" /> <value unit="mEq/L" xsi:type="PQ " value="4.3" /> <referenceRange> <observationRange> <text>3.6-5.1</text> </observationRange> </ referenceRange> </observation> </component> <component> <observation moodCode="EVN" classCode="OBS"> <templateId root= "840.1.196871.07.02.22.4.2" /> <id nullFlavor="NA" /> < code codeSystem="local" code="NA" displayName="Sodium" /> <statusCode code="completed" /> <effectiveTime value="254110742797" /> < value unit="mEq/L" xsi:type="PQ" value="133" /> <interpretationCode codeSystem="local" code="*" /> <referenceRange> < observationRange> <text>136-144</text> </ observationRange> </referenceRange> </observation> </ component> </organizer> </entry> <entry> <organizer moodCode="EVN" classCode="BATTERY"> <templateId root="840.1.037176.22.4.1" /> <id nullFlavor="NA" /> <code codeSystem="local" code="MG" displayName= "Magnesium" /> <statusCode code="completed" /> <component> < observation moodCode="EVN" classCode="OBS"> <templateId root= "840.1.679774.07.02.22.4.2" /> <id nullFlavor="NA" /> < code codeSystem="local" code="MG" displayName="Magnesium" /> < statusCode code="completed" /> <effectiveTime value="430833716104" /> <value unit="mg/dL" xsi:type="PQ" value="2.3" /> < referenceRange> <observationRange> <text>1.8-2.5</text> </observationRange> </referenceRange> </observation > </component> </organizer> </entry> <entry> <organizer moodCode= "EVN" classCode="BATTERY"> <templateId root="16.840.1.146451.10..22.4.1 " /> <id nullFlavor="NA" /> <code codeSystem="local" code="GFR" displayName="eGFR" /> <statusCode code="completed" /> <component> <observation moodCode="EVN" classCode="OBS"> <templateId root= "16.840.1.390532.10..22.4.2" /> <id nullFlavor="NA" /> < code codeSystem="local" code="GFR" displayName="eGFR" /> <statusCode code="completed" /> <effectiveTime value="" /> < value unit="mL/min" xsi:type="PQ" value=">60" /> <referenceRange> <observationRange> <text>>60</text> </ observationRange> </referenceRange> </observation> </ component> </organizer> </entry> <entry> <organizer moodCode="EVN" classCode="BATTERY"> <templateId root="16.840.1.501117.10..22.4.1" /> <id nullFlavor="NA" /> <code codeSystem="local" code="CBCND" displayName="CBC With Platelet No Differential" /> <statusCode code= "completed" /> <component> <observation moodCode="EVN" classCode= "OBS"> <templateId root="10.29.840.1.558026.07.02.22.4.2" /> < id nullFlavor="NA" /> <code codeSystem="local" code="HCT" displayName= "HCT" /> <statusCode code="completed" /> <effectiveTime value= "266968983595" /> <value unit="%" xsi:type="PQ" value="36.9" /> <interpretationCode codeSystem="local" code="*" /> < referenceRange> <observationRange> <text>42.0-52.0</text > </observationRange> </referenceRange> </observation > </component> <component> <observation moodCode="EVN" classCode="OBS"> <templateId root="10.29.840.1.002062.07.02.22.4.2" /> <id nullFlavor="NA" /> <code codeSystem="local" code="HGB" displayName="HGB" /> <statusCode code="completed" /> < effectiveTime value="123161825433" /> <value unit="g/dL" xsi:type="PQ" value="12.0" /> <interpretationCode codeSystem="local" code="*" /> <referenceRange> <observationRange> <text>14.0- 18.0</text> </observationRange> </referenceRange> </ observation> </component> <component> <observation moodCode= "EVN" classCode="OBS"> <templateId root="10.29.840.1.636742.22.4.2 " /> <id nullFlavor="NA" /> <code codeSystem="local" code="MCH " displayName="MCH" /> <statusCode code="completed" /> < effectiveTime value="306255759473" /> <value unit="pg" xsi:type="PQ" value="27.1" /> <referenceRange> <observationRange> <text>27.0-32.0</text> </observationRange> </ referenceRange> </observation> </component> <component> <observation moodCode="EVN" classCode="OBS"> <templateId root= "216.840.1.398805.07.02.22.4.2" /> <id nullFlavor="NA" /> < code codeSystem="local" code="MCHC" displayName="MCHC" /> <statusCode code="completed" /> <effectiveTime value="" /> < value unit="g/dL" xsi:type="PQ" value="32.5" /> <referenceRange> <observationRange> <text>32.0-36.0</text> </ observationRange> </referenceRange> </observation> </ component> <component> <observation moodCode="EVN" classCode="OBS"> <templateId root="2.840.1.058292.07.02.22.4.2" /> <id nullFlavor="NA" /> <code codeSystem="local" code="MCV" displayName="MCV " /> <statusCode code="completed" /> <effectiveTime value= "" /> <value unit="fL" xsi:type="PQ" value="83.5" /> <referenceRange> <observationRange> <text>82.0-99.0< /text> </observationRange> </referenceRange> </ observation> </component> <component> <observation moodCode= "EVN" classCode="OBS"> <templateId root="216.840.1.405398.10.22.4.2 " /> <id nullFlavor="NA" /> <code codeSystem="local" code="MPV " displayName="MPV" /> <statusCode code="completed" /> < effectiveTime value="284460716620" /> <value unit="fL" xsi:type="PQ" value="9.2" /> <interpretationCode codeSystem="local" code="*" /> <referenceRange> <observationRange> <text>9.4-12.3< /text> </observationRange> </referenceRange> </ observation> </component> <component> <observation moodCode= "EVN" classCode="OBS"> <templateId root="216.840.1.450576.22.4.2 " /> <id nullFlavor="NA" /> <code codeSystem="local" code="PLT " displayName="Platelet Count" /> <statusCode code="completed" /> <effectiveTime value="" /> <value unit="K/uL" xsi:type ="PQ" value="221" /> <referenceRange> <observationRange> <text>150-400</text> </observationRange> </ referenceRange> </observation> </component> <component> <observation moodCode="EVN" classCode="OBS"> <templateId root= "216.840.1.206699.22.4.2" /> <id nullFlavor="NA" /> < code codeSystem="local" code="RBC" displayName="RBC" /> <statusCode code="completed" /> <effectiveTime value="973828871015" /> < value unit="10*6/uL" xsi:type="PQ" value="4.42" /> <interpretationCode codeSystem="local" code="*" /> <referenceRange> < observationRange> <text>4.60-6.20</text> </ observationRange> </referenceRange> </observation> </ component> <component> <observation moodCode="EVN" classCode="OBS"> <templateId root="2.16.840.1.328159.10..22.4.2" /> <id nullFlavor="NA" /> <code codeSystem="local" code="RDW" displayName="RDW " /> <statusCode code="completed" /> <effectiveTime value= "915969295033" /> <value unit="%" xsi:type="PQ" value="14.0" /> <referenceRange> <observationRange> <text>11.5- 14.5</text> </observationRange> </referenceRange> </ observation> </component> <component> <observation moodCode= "EVN" classCode="OBS"> <templateId root="216.840.1.954486.07.02.22.4.2 " /> <id nullFlavor="NA" /> <code codeSystem="local" code= "WBCIR" displayName="WBC" /> <statusCode code="completed" /> < effectiveTime value="390433655189" /> <value unit="K/uL" xsi:type="PQ" value="9.9" /> <referenceRange> <observationRange> <text>4.8-10.8</text> </observationRange> </ referenceRange> </observation> </component> </organizer> </entry > <entry> <organizer moodCode="EVN" classCode="BATTERY"> <templateId root="2.16.840.1.227756.10..22.4.1" /> <id nullFlavor="NA" /> <code codeSystem="local" code="BMP" displayName="Basic Metabolic Panel (BMP)" /> <statusCode code="completed" /> <component> <observation moodCode= "EVN" classCode="OBS"> <templateId root="16.840.1.839172.10.20.22.4.2 " /> <id nullFlavor="NA" /> <code codeSystem="local" code= "AGAP" displayName="Anion Gap" /> <statusCode code="completed" /> <effectiveTime value="364108292485" /> <value unit="mEq/L" xsi: type="PQ" value="7" /> <referenceRange> <observationRange> <text>3-20</text> </observationRange> </ referenceRange> </observation> </component> <component> <observation moodCode="EVN" classCode="OBS"> <templateId root= "10.29.840.1.670236.10.22.4.2" /> <id nullFlavor="NA" /> < code codeSystem="local" code="BUN" displayName="BUN" /> <statusCode code="completed" /> <effectiveTime value="978904636512" /> < value unit="mg/dL" xsi:type="PQ" value="22" /> <interpretationCode codeSystem="local" code="*" /> <referenceRange> < observationRange> <text>4-20</text> </observationRange> </referenceRange> </observation> </component> < component> <observation moodCode="EVN" classCode="OBS"> < templateId root="10.29.840.1.715492.10.20.22.4.2" /> <id nullFlavor="NA " /> <code codeSystem="local" code="CA" displayName="Calcium" /> <statusCode code="completed" /> <effectiveTime value="732525050872 " /> <value unit="mg/dL" xsi:type="PQ" value="9.1" /> < referenceRange> <observationRange> <text>8.6-10.0</text > </observationRange> </referenceRange> </observation > </component> <component> <observation moodCode="EVN" classCode="OBS"> <templateId root="16.840.1.649197.10..4.2" /> <id nullFlavor="NA" /> <code codeSystem="local" code="CL" displayName="Chloride" /> <statusCode code="completed" /> < effectiveTime value="210800712217" /> <value unit="mEq/L" xsi:type="PQ " value="98" /> <interpretationCode codeSystem="local" code="*" /> <referenceRange> <observationRange> <text>99-109</ text> </observationRange> </referenceRange> </ observation> </component> <component> <observation moodCode= "EVN" classCode="OBS"> <templateId root="10.29.840.1.225372.10.4.2 " /> <id nullFlavor="NA" /> <code codeSystem="local" code="CO2 " displayName="CO2" /> <statusCode code="completed" /> < effectiveTime value="146031857605" /> <value unit="mEq/L" xsi:type="PQ " value="28" /> <referenceRange> <observationRange> <text>22-32</text> </observationRange> </ referenceRange> </observation> </component> <component> <observation moodCode="EVN" classCode="OBS"> <templateId root= "10.29.840.1.551406.10.22.4.2" /> <id nullFlavor="NA" /> < code codeSystem="local" code="CREAT" displayName="Creatinine" /> < statusCode code="completed" /> <effectiveTime value="722148875520" /> <value unit="mg/dL" xsi:type="PQ" value="1.09" /> < referenceRange> <observationRange> <text>0.64-1.27</text > </observationRange> </referenceRange> </observation > </component> <component> <observation moodCode="EVN" classCode="OBS"> <templateId root="10.29.840.1.703607.10.22.4.2" /> <id nullFlavor="NA" /> <code codeSystem="local" code="GLU" displayName="Glucose" /> <statusCode code="completed" /> < effectiveTime value="474404968433" /> <value unit="mg/dL" xsi:type="PQ " value="62" /> <interpretationCode codeSystem="local" code="*" /> <referenceRange> <observationRange> <text>70-100</ text> </observationRange> </referenceRange> </ observation> </component> <component> <observation moodCode= "EVN" classCode="OBS"> <templateId root="840.1.585978.22.4.2 " /> <id nullFlavor="NA" /> <code codeSystem="local" code="K" displayName="Potassium" /> <statusCode code="completed" /> < effectiveTime value="510264499205" /> <value unit="mEq/L" xsi:type="PQ " value="4.3" /> <referenceRange> <observationRange> <text>3.6-5.1</text> </observationRange> </ referenceRange> </observation> </component> <component> <observation moodCode="EVN" classCode="OBS"> <templateId root= "10.29.840.1.897915.10.20.22.4.2" /> <id nullFlavor="NA" /> < code codeSystem="local" code="NA" displayName="Sodium" /> <statusCode code="completed" /> <effectiveTime value="461779128512" /> < value unit="mEq/L" xsi:type="PQ" value="133" /> <interpretationCode codeSystem="local" code="*" /> <referenceRange> < observationRange> <text>136-144</text> </ observationRange> </referenceRange> </observation> </ component> </organizer> </entry> <entry> <organizer moodCode="EVN" classCode="BATTERY"> <templateId root="16.840.1.693684.10.20.22.4.1" /> <id nullFlavor="NA" /> <code codeSystem="local" code="GFR" displayName ="eGFR" /> <statusCode code="completed" /> <component> < observation moodCode="EVN" classCode="OBS"> <templateId root= "16.840.1.672800.10.20.22.4.2" /> <id nullFlavor="NA" /> < code codeSystem="local" code="GFR" displayName="eGFR" /> <statusCode code="completed" /> <effectiveTime value="711729847547" /> < value unit="mL/min" xsi:type="PQ" value=">60" /> <referenceRange> <observationRange> <text>>60</text> </ observationRange> </referenceRange> </observation> </ component> </organizer> </entry> <entry> <organizer moodCode="EVN" classCode="BATTERY"> <templateId root="16.840.1.089753.10.20.22.4.1" /> <id nullFlavor="NA" /> <code codeSystem="local" code="CBCWD" displayName="CBC With Platelet and Differential" /> <statusCode code= "completed" /> <component> <observation moodCode="EVN" classCode= "OBS"> <templateId root="216.840.1.978254.07.02.22.4.2" /> < id nullFlavor="NA" /> <code codeSystem="local" code="ABASR" displayName ="Absolute Basophils" /> <statusCode code="completed" /> < effectiveTime value="347805305355" /> <value unit="10*3/uL" xsi:type= "PQ" value="0.03" /> <referenceRange> <observationRange> <text>0.00-0.20</text> </observationRange> </ referenceRange> </observation> </component> <component> <observation moodCode="EVN" classCode="OBS"> <templateId root= "10.29.840.1.104860.07.02.224.2" /> <id nullFlavor="NA" /> < code codeSystem="local" code="AEOSR" displayName="Absolute Eosinophils" /> <statusCode code="completed" /> <effectiveTime value="646084448671 " /> <value unit="10*3/uL" xsi:type="PQ" value="0.04" /> < referenceRange> <observationRange> <text>0.00-0.50</text > </observationRange> </referenceRange> </observation > </component> <component> <observation moodCode="EVN" classCode="OBS"> <templateId root="16.840.1.273691.07.02.22.4.2" /> <id nullFlavor="NA" /> <code codeSystem="local" code="ALYMR" displayName="Absolute Lymphocytes" /> <statusCode code="completed" /> <effectiveTime value="892420556327" /> <value unit="10*3/uL" xsi:type="PQ" value="1.15" /> <referenceRange> < observationRange> <text>0.80-3.30</text> </ observationRange> </referenceRange> </observation> </ component> <component> <observation moodCode="EVN" classCode="OBS"> <templateId root="216.840.1.834022.10.22.4.2" /> <id nullFlavor="NA" /> <code codeSystem="local" code="AMONR" displayName= "Absolute Monocytes" /> <statusCode code="completed" /> < effectiveTime value="271859846339" /> <value unit="10*3/uL" xsi:type= "PQ" value="0.60" /> <referenceRange> <observationRange> <text>0.30-1.00</text> </observationRange> </ referenceRange> </observation> </component> <component> <observation moodCode="EVN" classCode="OBS"> <templateId root= "10.29.840.1.074044.10..4.2" /> <id nullFlavor="NA" /> < code codeSystem="local" code="ASEGR" displayName="Absolute Neutrophils" /> <statusCode code="completed" /> <effectiveTime value="241972557653 " /> <value unit="10*3/uL" xsi:type="PQ" value="4.22" /> < referenceRange> <observationRange> <text>1.90-7.00</text > </observationRange> </referenceRange> </observation > </component> <component> <observation moodCode="EVN" classCode="OBS"> <templateId root="216.840.1.668150.10..22.4.2" /> <id nullFlavor="NA" /> <code codeSystem="local" code="BASOR" displayName="Basophils" /> <statusCode code="completed" /> < effectiveTime value="633350779662" /> <value unit="%" xsi:type="PQ " value="1" /> <referenceRange> <observationRange> <text>0-2</text> </observationRange> </referenceRange> </observation> </component> <component> <observation moodCode="EVN" classCode="OBS"> <templateId root= "2.16.840.1.484468.10..22.4.2" /> <id nullFlavor="NA" /> < code codeSystem="local" code="EOSR" displayName="Eosinophils" /> < statusCode code="completed" /> <effectiveTime value="142673597473" /> <value unit="%" xsi:type="PQ" value="1" /> <referenceRange > <observationRange> <text>0-4</text> </ observationRange> </referenceRange> </observation> </ component> <component> <observation moodCode="EVN" classCode="OBS"> <templateId root="2.16.840.1.993507.10..22.4.2" /> <id nullFlavor="NA" /> <code codeSystem="local" code="HCT" displayName="HCT " /> <statusCode code="completed" /> <effectiveTime value= "991034433371" /> <value unit="%" xsi:type="PQ" value="42.5" /> <referenceRange> <observationRange> <text>42.0- 52.0</text> </observationRange> </referenceRange> </ observation> </component> <component> <observation moodCode= "EVN" classCode="OBS"> <templateId root="216.840.1.369608.10.20.22.4.2 " /> <id nullFlavor="NA" /> <code codeSystem="local" code="HGB " displayName="HGB" /> <statusCode code="completed" /> < effectiveTime value="558761610242" /> <value unit="g/dL" xsi:type="PQ" value="14.4" /> <referenceRange> <observationRange> <text>14.0-18.0</text> </observationRange> </ referenceRange> </observation> </component> <component> <observation moodCode="EVN" classCode="OBS"> <templateId root= "16.840.1.069853.10..4.2" /> <id nullFlavor="NA" /> < code codeSystem="local" code="IMGA" displayName="Immature Granulocytes" /> <statusCode code="completed" /> <effectiveTime value="538270190912 " /> <value unit="%" xsi:type="PQ" value="0.3" /> < referenceRange> <observationRange> <text>0.0-1.0</text> </observationRange> </referenceRange> </observation > </component> <component> <observation moodCode="EVN" classCode="OBS"> <templateId root="10.29.840.1.760493.10..22.4.2" /> <id nullFlavor="NA" /> <code codeSystem="local" code="LYMPR" displayName="Lymphocytes" /> <statusCode code="completed" /> < effectiveTime value="919263326009" /> <value unit="%" xsi:type="PQ " value="19" /> <interpretationCode codeSystem="local" code="*" /> <referenceRange> <observationRange> <text>20-46</ text> </observationRange> </referenceRange> </ observation> </component> <component> <observation moodCode= "EVN" classCode="OBS"> <templateId root="16.840.1.722473.10.2022.4.2 " /> <id nullFlavor="NA" /> <code codeSystem="local" code="MCH " displayName="MCH" /> <statusCode code="completed" /> < effectiveTime value="465741676516" /> <value unit="pg" xsi:type="PQ" value="27.9" /> <referenceRange> <observationRange> <text>27.0-32.0</text> </observationRange> </ referenceRange> </observation> </component> <component> <observation moodCode="EVN" classCode="OBS"> <templateId root= "10.29.840.1.502692.07.02.22.4.2" /> <id nullFlavor="NA" /> < code codeSystem="local" code="MCHC" displayName="MCHC" /> <statusCode code="completed" /> <effectiveTime value="180371026111" /> < value unit="g/dL" xsi:type="PQ" value="33.9" /> <referenceRange> <observationRange> <text>32.0-36.0</text> </ observationRange> </referenceRange> </observation> </ component> <component> <observation moodCode="EVN" classCode="OBS"> <templateId root="10.29.840.1.162316.102022.4.2" /> <id nullFlavor="NA" /> <code codeSystem="local" code="MCV" displayName="MCV " /> <statusCode code="completed" /> <effectiveTime value= "012358211777" /> <value unit="fL" xsi:type="PQ" value="82.4" /> <referenceRange> <observationRange> <text>82.0-99.0< /text> </observationRange> </referenceRange> </ observation> </component> <component> <observation moodCode= "EVN" classCode="OBS"> <templateId root="10.29.840.1.781042.10.22.4.2 " /> <id nullFlavor="NA" /> <code codeSystem="local" code= "MONOR" displayName="Monocytes" /> <statusCode code="completed" /> <effectiveTime value="743702604210" /> <value unit="%" xsi: type="PQ" value="10" /> <referenceRange> <observationRange> <text>4-11</text> </observationRange> </ referenceRange> </observation> </component> <component> <observation moodCode="EVN" classCode="OBS"> <templateId root= "10.29.840.1.031982.07.02.22.4.2" /> <id nullFlavor="NA" /> < code codeSystem="local" code="MPV" displayName="MPV" /> <statusCode code="completed" /> <effectiveTime value="[id number]" /> < value unit="fL" xsi:type="PQ" value="9.4" /> <referenceRange> <observationRange> <text>9.4-12.3</text> </ observationRange> </referenceRange> </observation> </ component> <component> <observation moodCode="EVN" classCode="OBS"> <templateId root="10.29.840.1.226570.10..22.4.2" /> <id nullFlavor="NA" /> <code codeSystem="local" code="SEGR" displayName= "Neutrophils" /> <statusCode code="completed" /> < effectiveTime value="151435736090" /> <value unit="%" xsi:type="PQ " value="70" /> <referenceRange> <observationRange> <text>51-75</text> </observationRange> </ referenceRange> </observation> </component> <component> <observation moodCode="EVN" classCode="OBS"> <templateId root= "10.29.840.1.904391.10.22.4.2" /> <id nullFlavor="NA" /> < code codeSystem="local" code="NRBCA" displayName="Nucleated RBC Automated" /> <statusCode code="completed" /> <effectiveTime value= "743392898403" /> <value unit="/100WBC" xsi:type="PQ" value="0.0" /> <referenceRange> <observationRange> <text /> </observationRange> </referenceRange> </observation> </component> <component> <observation moodCode="EVN" classCode= "OBS"> <templateId root="10.29.840.1.357636.07.02.22.4.2" /> < id nullFlavor="NA" /> <code codeSystem="local" code="PLT" displayName= "Platelet Count" /> <statusCode code="completed" /> < effectiveTime value="582889321817" /> <value unit="K/uL" xsi:type="PQ" value="179" /> <referenceRange> <observationRange> <text>150-400</text> </observationRange> </ referenceRange> </observation> </component> <component> <observation moodCode="EVN" classCode="OBS"> <templateId root= "10.29.840.1.671612.22.4.2" /> <id nullFlavor="NA" /> < code codeSystem="local" code="RBC" displayName="RBC" /> <statusCode code="completed" /> <effectiveTime value="986845491840" /> < value unit="10*6/uL" xsi:type="PQ" value="5.16" /> <referenceRange> <observationRange> <text>4.60-6.20</text> </ observationRange> </referenceRange> </observation> </ component> <component> <observation moodCode="EVN" classCode="OBS"> <templateId root="216.840.1.652198.07.02.22.4.2" /> <id nullFlavor="NA" /> <code codeSystem="local" code="RDW" displayName="RDW " /> <statusCode code="completed" /> <effectiveTime value= "098409334688" /> <value unit="%" xsi:type="PQ" value="15.5" /> <interpretationCode codeSystem="local" code="*" /> < referenceRange> <observationRange> <text>11.5-14.5</text > </observationRange> </referenceRange> </observation > </component> <component> <observation moodCode="EVN" classCode="OBS"> <templateId root="216.840.1.629632.22.4.2" /> <id nullFlavor="NA" /> <code codeSystem="local" code="WBCIR" displayName="WBC" /> <statusCode code="completed" /> < effectiveTime value="976186851170" /> <value unit="K/uL" xsi:type="PQ" value="6.1" /> <referenceRange> <observationRange> <text>4.8-10.8</text> </observationRange> </ referenceRange> </observation> </component> </organizer> </entry > <entry> <organizer moodCode="EVN" classCode="BATTERY"> <templateId root="216.840.1.045222.10..22.4.1" /> <id nullFlavor="NA" /> <code codeSystem="local" code="CMP" displayName="Comprehensive Metabolic Panel (CMP)" /> <statusCode code="completed" /> <component> <observation moodCode="EVN" classCode="OBS"> <templateId root= "2.16.840.1.305834.10...4.2" /> <id nullFlavor="NA" /> < code codeSystem="local" code="ALB" displayName="Albumin" /> < statusCode code="completed" /> <effectiveTime value="291441854253" /> <value unit="g/dL" xsi:type="PQ" value="3.8" /> < referenceRange> <observationRange> <text>3.5-4.8</text> </observationRange> </referenceRange> </observation > </component> <component> <observation moodCode="EVN" classCode="OBS"> <templateId root="2.16.840.1.972028.10..22.4.2" /> <id nullFlavor="NA" /> <code codeSystem="local" code="ALP" displayName="Alkaline Phosphatase" /> <statusCode code="completed" /> <effectiveTime value="766090631839" /> <value unit="U/L" xsi: type="PQ" value="75" /> <referenceRange> <observationRange> <text>26-104</text> </observationRange> </ referenceRange> </observation> </component> <component> <observation moodCode="EVN" classCode="OBS"> <templateId root= "216.840.1.187655.10..22.4.2" /> <id nullFlavor="NA" /> < code codeSystem="local" code="ALT" displayName="ALT (SGPT)" /> < statusCode code="completed" /> <effectiveTime value="743192001176" /> <value unit="U/L" xsi:type="PQ" value="17" /> <referenceRange > <observationRange> <text>17-63</text> </ observationRange> </referenceRange> </observation> </ component> <component> <observation moodCode="EVN" classCode="OBS"> <templateId root="216.840.1.223677.10...4.2" /> <id nullFlavor="NA" /> <code codeSystem="local" code="AGAP" displayName= "Anion Gap" /> <statusCode code="completed" /> <effectiveTime value="892180955060" /> <value unit="mEq/L" xsi:type="PQ" value="11" / > <referenceRange> <observationRange> <text>3- 20</text> </observationRange> </referenceRange> </ observation> </component> <component> <observation moodCode= "EVN" classCode="OBS"> <templateId root="10.29.840.1.293539.10..22.4.2 " /> <id nullFlavor="NA" /> <code codeSystem="local" code="AST " displayName="AST (SGOT)" /> <statusCode code="completed" /> <effectiveTime value="796233009593" /> <value unit="U/L" xsi:type="PQ" value="22" /> <referenceRange> <observationRange> <text>15-41</text> </observationRange> </referenceRange > </observation> </component> <component> <observation moodCode="EVN" classCode="OBS"> <templateId root= "216.840.1.358041.22.4.2" /> <id nullFlavor="NA" /> < code codeSystem="local" code="BILIT" displayName="Bilirubin Total" /> < statusCode code="completed" /> <effectiveTime value="" /> <value unit="mg/dL" xsi:type="PQ" value="0.8" /> < referenceRange> <observationRange> <text>0.2-1.2</text> </observationRange> </referenceRange> </observation > </component> <component> <observation moodCode="EVN" classCode="OBS"> <templateId root="10.29.840.1.774979.07.02.22.4.2" /> <id nullFlavor="NA" /> <code codeSystem="local" code="BUN" displayName="BUN" /> <statusCode code="completed" /> < effectiveTime value="" /> <value unit="mg/dL" xsi:type="PQ " value="13" /> <referenceRange> <observationRange> <text>4-20</text> </observationRange> </referenceRange > </observation> </component> <component> <observation moodCode="EVN" classCode="OBS"> <templateId root= "16.840.1.343214.22.4.2" /> <id nullFlavor="NA" /> < code codeSystem="local" code="CA" displayName="Calcium" /> <statusCode code="completed" /> <effectiveTime value="" /> < value unit="mg/dL" xsi:type="PQ" value="9.5" /> <referenceRange> <observationRange> <text>8.6-10.0</text> </ observationRange> </referenceRange> </observation> </ component> <component> <observation moodCode="EVN" classCode="OBS"> <templateId root="216.840.1.800808.10...4.2" /> <id nullFlavor="NA" /> <code codeSystem="local" code="CL" displayName= "Chloride" /> <statusCode code="completed" /> <effectiveTime value="526417782069" /> <value unit="mEq/L" xsi:type="PQ" value="104" / > <referenceRange> <observationRange> <text>99- 109</text> </observationRange> </referenceRange> </ observation> </component> <component> <observation moodCode= "EVN" classCode="OBS"> <templateId root="10.29.840.1.443894.10..4.2 " /> <id nullFlavor="NA" /> <code codeSystem="local" code="CO2 " displayName="CO2" /> <statusCode code="completed" /> < effectiveTime value="549507055339" /> <value unit="mEq/L" xsi:type="PQ " value="23" /> <referenceRange> <observationRange> <text>22-32</text> </observationRange> </ referenceRange> </observation> </component> <component> <observation moodCode="EVN" classCode="OBS"> <templateId root= "10.29.840.1.055322.10.20.4.2" /> <id nullFlavor="NA" /> < code codeSystem="local" code="CREAT" displayName="Creatinine" /> < statusCode code="completed" /> <effectiveTime value="908219912139" /> <value unit="mg/dL" xsi:type="PQ" value="1.11" /> < referenceRange> <observationRange> <text>0.64-1.27</text > </observationRange> </referenceRange> </observation > </component> <component> <observation moodCode="EVN" classCode="OBS"> <templateId root="16.840.1.399690.102022.4.2" /> <id nullFlavor="NA" /> <code codeSystem="local" code="GLOB" displayName="Globulin" /> <statusCode code="completed" /> < effectiveTime value="691001465300" /> <value unit="g/dL" xsi:type="PQ" value="2.9" /> <referenceRange> <observationRange> <text>1.9-4.3</text> </observationRange> </ referenceRange> </observation> </component> <component> <observation moodCode="EVN" classCode="OBS"> <templateId root= "10.29.840.1.406207..22.4.2" /> <id nullFlavor="NA" /> < code codeSystem="local" code="GLU" displayName="Glucose" /> < statusCode code="completed" /> <effectiveTime value="961372761860" /> <value unit="mg/dL" xsi:type="PQ" value="98" /> < referenceRange> <observationRange> <text>70-100</text> </observationRange> </referenceRange> </observation> </component> <component> <observation moodCode="EVN" classCode ="OBS"> <templateId root="16.840.1.160512.10.20.22.4.2" /> < id nullFlavor="NA" /> <code codeSystem="local" code="K" displayName= "Potassium" /> <statusCode code="completed" /> <effectiveTime value="188313531567" /> <value unit="mEq/L" xsi:type="PQ" value="3.5" / > <interpretationCode codeSystem="local" code="*" /> < referenceRange> <observationRange> <text>3.6-5.1</text> </observationRange> </referenceRange> </observation > </component> <component> <observation moodCode="EVN" classCode="OBS"> <templateId root="2.16.840.1.044762.10..22.4.2" /> <id nullFlavor="NA" /> <code codeSystem="local" code="TP" displayName="Protein" /> <statusCode code="completed" /> < effectiveTime value="587579663552" /> <value unit="g/dL" xsi:type="PQ" value="6.7" /> <referenceRange> <observationRange> <text>6.1-7.9</text> </observationRange> </ referenceRange> </observation> </component> <component> <observation moodCode="EVN" classCode="OBS"> <templateId root= "2.16.840.1.650495.10..22.4.2" /> <id nullFlavor="NA" /> < code codeSystem="local" code="NA" displayName="Sodium" /> <statusCode code="completed" /> <effectiveTime value="459311893530" /> < value unit="mEq/L" xsi:type="PQ" value="138" /> <referenceRange> <observationRange> <text>136-144</text> </ observationRange> </referenceRange> </observation> </ component> </organizer> </entry> <entry> <organizer moodCode="EVN" classCode="BATTERY"> <templateId root="10.29.840.1.744243.10.4.1" /> <id nullFlavor="NA" /> <code codeSystem="local" code="GFR" displayName ="eGFR" /> <statusCode code="completed" /> <component> < observation moodCode="EVN" classCode="OBS"> <templateId root= "840.1.053342.07.02.22.4.2" /> <id nullFlavor="NA" /> < code codeSystem="local" code="GFR" displayName="eGFR" /> <statusCode code="completed" /> <effectiveTime value="041086916744" /> < value unit="mL/min" xsi:type="PQ" value=">60" /> <referenceRange> <observationRange> <text>>60</text> </ observationRange> </referenceRange> </observation> </ component> </organizer> </entry> <entry> <organizer moodCode="EVN" classCode="BATTERY"> <templateId root="840.1.529035.07.02.224.1" /> <id nullFlavor="NA" /> <code codeSystem="local" code="TROP" displayName="Troponin" /> <statusCode code="completed" /> <component> <observation moodCode="EVN" classCode="OBS"> <templateId root= "10.29.840.1.787430.07.02.22.4.2" /> <id nullFlavor="NA" /> < code codeSystem="local" code="TROP" displayName="Troponin" /> < statusCode code="completed" /> <effectiveTime value="716615085599" /> <value unit="ng/mL" xsi:type="PQ" value="<0.05" /> < referenceRange> <observationRange> <text><0.06</text > </observationRange> </referenceRange> </observation > </component> </organizer> </entry> <entry> <organizer moodCode= "EVN" classCode="BATTERY"> <templateId root="16.840.1.493487.10.4.1 " /> <id nullFlavor="NA" /> <code codeSystem="local" code="UA" displayName="Urinalysis with reflex microscopic" /> <statusCode code= "completed" /> <component> <observation moodCode="EVN" classCode= "OBS"> <templateId root="16.840.1.941283.10..4.2" /> < id nullFlavor="NA" /> <code codeSystem="local" code="UAPP" displayName= "Appearance" /> <statusCode code="completed" /> < effectiveTime value="" /> <value unit="NA" xsi:type="PQ" value="Cloudy" /> <interpretationCode codeSystem="local" code="*" /> <referenceRange> <observationRange> <text /> </observationRange> </referenceRange> </observation> </component> <component> <observation moodCode="EVN" classCode= "OBS"> <templateId root="10.29.840.1.653932.10.4.2" /> < id nullFlavor="NA" /> <code codeSystem="local" code="UBIL" displayName= "Bilirubin" /> <statusCode code="completed" /> <effectiveTime value="" /> <value unit="NA" xsi:type="PQ" value="Negative " /> <referenceRange> <observationRange> <text> Negative</text> </observationRange> </referenceRange> </observation> </component> <component> <observation moodCode ="EVN" classCode="OBS"> <templateId root= "216.840.1.604427.07.02.22.4.2" /> <id nullFlavor="NA" /> < code codeSystem="local" code="UBLD" displayName="Blood" /> <statusCode code="completed" /> <effectiveTime value="" /> < value unit="NA" xsi:type="PQ" value="Negative" /> <referenceRange> <observationRange> <text>Negative</text> </ observationRange> </referenceRange> </observation> </ component> <component> <observation moodCode="EVN" classCode="OBS"> <templateId root="10.29.840.1.646421.07.02.22.4.2" /> <id nullFlavor="NA" /> <code codeSystem="local" code="UCOLR" displayName= "Color" /> <statusCode code="completed" /> <effectiveTime value="" /> <value unit="NA" xsi:type="PQ" value="Yellow" / > <referenceRange> <observationRange> <text /> </observationRange> </referenceRange> </observation > </component> <component> <observation moodCode="EVN" classCode="OBS"> <templateId root="10.29.840.1.072412.10.4.2" /> <id nullFlavor="NA" /> <code codeSystem="local" code="UGLU" displayName="Glucose, Urine" /> <statusCode code="completed" /> <effectiveTime value="" /> <value unit="" xsi:type="PQ" value="Negative" /> <referenceRange> <observationRange> <text>Negative</text> </observationRange> </ referenceRange> </observation> </component> <component> <observation moodCode="EVN" classCode="OBS"> <templateId root= "10.29.840.1.532039.10.20.22.4.2" /> <id nullFlavor="NA" /> < code codeSystem="local" code="UKET" displayName="Ketones" /> < statusCode code="completed" /> <effectiveTime value="214266356559" /> <value unit="" xsi:type="PQ" value="Pos 1+" /> < interpretationCode codeSystem="local" code="*" /> <referenceRange> <observationRange> <text>Negative</text> </ observationRange> </referenceRange> </observation> </ component> <component> <observation moodCode="EVN" classCode="OBS"> <templateId root="840.1.298641.10..4.2" /> <id nullFlavor="NA" /> <code codeSystem="local" code="ULEU" displayName= "Leukocyte Esterase" /> <statusCode code="completed" /> < effectiveTime value="938953544593" /> <value unit="NA" xsi:type="PQ" value="Trace" /> <interpretationCode codeSystem="local" code="*" /> <referenceRange> <observationRange> <text> Negative</text> </observationRange> </referenceRange> </observation> </component> <component> <observation moodCode ="EVN" classCode="OBS"> <templateId root= "10.29.840.1.663029.10.22.4.2" /> <id nullFlavor="NA" /> < code codeSystem="local" code="UNIT" displayName="Nitrites" /> < statusCode code="completed" /> <effectiveTime value="" /> <value unit="NA" xsi:type="PQ" value="Negative" /> < referenceRange> <observationRange> <text>Negative</text > </observationRange> </referenceRange> </observation > </component> <component> <observation moodCode="EVN" classCode="OBS"> <templateId root="16.840.1.298046.07.02.22.4.2" /> <id nullFlavor="NA" /> <code codeSystem="local" code="UPH" displayName="pH" /> <statusCode code="completed" /> < effectiveTime value="" /> <value unit="NA" xsi:type="PQ" value="5.0" /> <referenceRange> <observationRange> <text>5.0-8.0</text> </observationRange> </ referenceRange> </observation> </component> <component> <observation moodCode="EVN" classCode="OBS"> <templateId root= "10.29.840.1.238816.07.02.22.4.2" /> <id nullFlavor="NA" /> < code codeSystem="local" code="UPRO" displayName="Protein" /> < statusCode code="completed" /> <effectiveTime value="" /> <value unit="NA" xsi:type="PQ" value="Pos 1+" /> < interpretationCode codeSystem="local" code="*" /> <referenceRange> <observationRange> <text>Negative</text> </ observationRange> </referenceRange> </observation> </ component> <component> <observation moodCode="EVN" classCode="OBS"> <templateId root="10.29.840.1.569417.07.02.22.4.2" /> <id nullFlavor="NA" /> <code codeSystem="local" code="USPG" displayName= "Specific [place]" /> <statusCode code="completed" /> < effectiveTime value="291831969599" /> <value unit="NA" xsi:type="PQ" value="1.025" /> <referenceRange> <observationRange> <text>1.003-1.030</text> </observationRange> </ referenceRange> </observation> </component> <component> <observation moodCode="EVN" classCode="OBS"> <templateId root= "2.16.840.1.458384.07.02.22.4.2" /> <id nullFlavor="NA" /> < code codeSystem="local" code="UTYP" displayName="UA Collection type" /> <statusCode code="completed" /> <effectiveTime value="471321987305" / > <value unit="NA" xsi:type="PQ" value="Clean Catch" /> < referenceRange> <observationRange> <text /> < /observationRange> </referenceRange> </observation> </ component> <component> <observation moodCode="EVN" classCode="OBS"> <templateId root="2.16.840.1.361663.10..4.2" /> <id nullFlavor="NA" /> <code codeSystem="local" code="UURO" displayName= "Urobilinogen" /> <statusCode code="completed" /> < effectiveTime value="297640912572" /> <value unit="mg/dL" xsi:type="PQ " value="4.0" /> <referenceRange> <observationRange> <text><1.0</text> </observationRange> </ referenceRange> </observation> </component> </organizer> </entry > <entry> <organizer moodCode="EVN" classCode="BATTERY"> <templateId root="10.29.840.1.581156.10..4.1" /> <id nullFlavor="NA" /> <code codeSystem="local" code="UMIC" displayName="Urine Microscopic" /> < statusCode code="completed" /> <component> <observation moodCode= "EVN" classCode="OBS"> <templateId root="840.1.241528.07.02.22.4.2 " /> <id nullFlavor="NA" /> <code codeSystem="local" code= "UBAC" displayName="Bacteria" /> <statusCode code="completed" /> <effectiveTime value="" /> <value unit="NA" xsi:type= "PQ" value="Occasional" /> <interpretationCode codeSystem="local" code= "*" /> <referenceRange> <observationRange> < text /> </observationRange> </referenceRange> </ observation> </component> <component> <observation moodCode= "EVN" classCode="OBS"> <templateId root="840.1.563373.07.02.22.4.2 " /> <id nullFlavor="NA" /> <code codeSystem="local" code= "UCRY1" displayName="Crystals" /> <statusCode code="completed" /> <effectiveTime value="" /> <value unit="NA" xsi:type= "PQ" value="Ca Ox" /> <referenceRange> <observationRange> <text /> </observationRange> </referenceRange> </observation> </component> <component> <observation moodCode="EVN" classCode="OBS"> <templateId root= "10.29.840.1.226381.07.02.22.4.2" /> <id nullFlavor="NA" /> < code codeSystem="local" code="UEPI" displayName="Epithelial Cells" /> < statusCode code="completed" /> <effectiveTime value="" /> <value unit="/HPF" xsi:type="PQ" value="2" /> <referenceRange > <observationRange> <text /> </ observationRange> </referenceRange> </observation> </ component> <component> <observation moodCode="EVN" classCode="OBS"> <templateId root="216.840.1.499269.10...4.2" /> <id nullFlavor="NA" /> <code codeSystem="local" code="URBC" displayName= "RBC, Urine" /> <statusCode code="completed" /> < effectiveTime value="" /> <value unit="/HPF" xsi:type="PQ" value="10" /> <interpretationCode codeSystem="local" code="*" /> <referenceRange> <observationRange> <text>0-2</text > </observationRange> </referenceRange> </observation > </component> <component> <observation moodCode="EVN" classCode="OBS"> <templateId root="216.840.1.666684....4.2" /> <id nullFlavor="NA" /> <code codeSystem="local" code="UMUC" displayName="Urine Mucus" /> <statusCode code="completed" /> < effectiveTime value="" /> <value unit="NA" xsi:type="PQ" value="Present" /> <referenceRange> <observationRange> <text /> </observationRange> </referenceRange> </observation> </component> <component> <observation moodCode="EVN" classCode="OBS"> <templateId root= "216.840.1.414546.10.22.4.2" /> <id nullFlavor="NA" /> < code codeSystem="local" code="UWBC" displayName="WBC, Urine" /> < statusCode code="completed" /> <effectiveTime value="860526052228" /> <value unit="/HPF" xsi:type="PQ" value="20" /> < interpretationCode codeSystem="local" code="*" /> <referenceRange> <observationRange> <text>0-4</text> </ observationRange> </referenceRange> </observation> </ component> </organizer> </entry> <entry> <organizer moodCode="EVN" classCode="BATTERY"> <templateId root="216.840.1.660148.10.22.4.1" /> <id nullFlavor="NA" /> <code codeSystem="local" code="UDRGH" displayName="Urine Drug Screen" /> <statusCode code="completed" /> < component> <observation moodCode="EVN" classCode="OBS"> < templateId root="216.840.1.903296.10..22.4.2" /> <id nullFlavor="NA " /> <code codeSystem="local" code="UAMP1" displayName="Amph/Meth/ Ecstasy" /> <statusCode code="completed" /> <effectiveTime value="201699345197" /> <value unit="NA" xsi:type="PQ" value="Negative " /> <referenceRange> <observationRange> <text /> </observationRange> </referenceRange> </ observation> </component> <component> <observation moodCode= "EVN" classCode="OBS"> <templateId root="216.840.1.011751.22.4.2 " /> <id nullFlavor="NA" /> <code codeSystem="local" code= "UBAR1" displayName="Barbiturates" /> <statusCode code="completed" /> <effectiveTime value="" /> <value unit="NA" xsi: type="PQ" value="Negative" /> <referenceRange> < observationRange> <text /> </observationRange> </referenceRange> </observation> </component> <component> <observation moodCode="EVN" classCode="OBS"> <templateId root= "216.840.1.160958.07.02.22.4.2" /> <id nullFlavor="NA" /> < code codeSystem="local" code="UBEN1" displayName="Benzodiazepine" /> < statusCode code="completed" /> <effectiveTime value="" /> <value unit="NA" xsi:type="PQ" value="Negative" /> < referenceRange> <observationRange> <text /> < /observationRange> </referenceRange> </observation> </ component> <component> <observation moodCode="EVN" classCode="OBS"> <templateId root="216.840.1.781215....4.2" /> <id nullFlavor="NA" /> <code codeSystem="local" code="UCAN1" displayName= "Cannabinoid" /> <statusCode code="completed" /> < effectiveTime value="" /> <value unit="NA" xsi:type="PQ" value="Negative" /> <referenceRange> <observationRange> <text /> </observationRange> </referenceRange> </observation> </component> <component> <observation moodCode="EVN" classCode="OBS"> <templateId root= "216.840.1.788282.07.02.22.4.2" /> <id nullFlavor="NA" /> < code codeSystem="local" code="UCOC1" displayName="Cocaine" /> < statusCode code="completed" /> <effectiveTime value="" /> <value unit="NA" xsi:type="PQ" value="Negative" /> < referenceRange> <observationRange> <text /> < /observationRange> </referenceRange> </observation> </ component> <component> <observation moodCode="EVN" classCode="OBS"> <templateId root="10.29.840.1.078644.07.02.22.4.2" /> <id nullFlavor="NA" /> <code codeSystem="local" code="UMTD1" displayName= "EDDP (Methadone met.)" /> <statusCode code="completed" /> < effectiveTime value="" /> <value unit="NA" xsi:type="PQ" value="Negative" /> <referenceRange> <observationRange> <text /> </observationRange> </referenceRange> </observation> </component> <component> <observation moodCode="EVN" classCode="OBS"> <templateId root= "10.29.840.1.079192...4.2" /> <id nullFlavor="NA" /> < code codeSystem="local" code="UOPI1" displayName="Opiate" /> < statusCode code="completed" /> <effectiveTime value="" /> <value unit="NA" xsi:type="PQ" value="Negative" /> < referenceRange> <observationRange> <text /> < /observationRange> </referenceRange> </observation> </ component> <component> <observation moodCode="EVN" classCode="OBS"> <templateId root="10.29.840.1.236106.10..22.4.2" /> <id nullFlavor="NA" /> <code codeSystem="local" code="UPCP1" displayName= "Phencyclidine (PCP)" /> <statusCode code="completed" /> < effectiveTime value="146366292607" /> <value unit="NA" xsi:type="PQ" value="Negative" /> <referenceRange> <observationRange> <text /> </observationRange> </referenceRange> </observation> </component> </organizer> </entry> <entry> < organizer moodCode="EVN" classCode="BATTERY"> <templateId root= "16.840.1.637337.10..4.1" /> <id nullFlavor="NA" /> <code codeSystem="local" code="TSHR" displayName="TSH with Reflex Free T4" /> < statusCode code="completed" /> <component> <observation moodCode= "EVN" classCode="OBS"> <templateId root="16.840.1.301723.10..22.4.2 " /> <id nullFlavor="NA" /> <code codeSystem="local" code= "TSHR" displayName="TSH with Reflex Free T4" /> <statusCode code= "completed" /> <effectiveTime value="342106821472" /> <value unit="uIU/mL" xsi:type="PQ" value="0.84" /> <referenceRange> <observationRange> <text>0.35-4.94</text> </ observationRange> </referenceRange> </observation> </ component> </organizer> </entry> <entry> <organizer moodCode="EVN" classCode="BATTERY"> <templateId root="16.840.1.001999.07.02.22.4.1" /> <id nullFlavor="NA" /> <code codeSystem="local" code="CBCWD" displayName="CBC With Platelet and Differential" /> <statusCode code= "completed" /> <component> <observation moodCode="EVN" classCode= "OBS"> <templateId root="10.29.840.1.802870.07.02.22.4.2" /> < id nullFlavor="NA" /> <code codeSystem="local" code="ABASR" displayName ="Absolute Basophils" /> <statusCode code="completed" /> < effectiveTime value="898874582895" /> <value unit="10*3/uL" xsi:type= "PQ" value="0.03" /> <referenceRange> <observationRange> <text>0.00-0.20</text> </observationRange> </ referenceRange> </observation> </component> <component> <observation moodCode="EVN" classCode="OBS"> <templateId root= "840.1.576005.07.02.224.2" /> <id nullFlavor="NA" /> < code codeSystem="local" code="AEOSR" displayName="Absolute Eosinophils" /> <statusCode code="completed" /> <effectiveTime value="944376561041 " /> <value unit="10*3/uL" xsi:type="PQ" value="0.15" /> < referenceRange> <observationRange> <text>0.00-0.50</text > </observationRange> </referenceRange> </observation > </component> <component> <observation moodCode="EVN" classCode="OBS"> <templateId root="10.29.840.1.628308.07.02.22.4.2" /> <id nullFlavor="NA" /> <code codeSystem="local" code="ALYMR" displayName="Absolute Lymphocytes" /> <statusCode code="completed" /> <effectiveTime value="041862362293" /> <value unit="10*3/uL" xsi:type="PQ" value="1.44" /> <referenceRange> < observationRange> <text>0.80-3.30</text> </ observationRange> </referenceRange> </observation> </ component> <component> <observation moodCode="EVN" classCode="OBS"> <templateId root="2.16.840.1.461746.10..22.4.2" /> <id nullFlavor="NA" /> <code codeSystem="local" code="AMONR" displayName= "Absolute Monocytes" /> <statusCode code="completed" /> < effectiveTime value="077440461180" /> <value unit="10*3/uL" xsi:type= "PQ" value="0.75" /> <referenceRange> <observationRange> <text>0.30-1.00</text> </observationRange> </ referenceRange> </observation> </component> <component> <observation moodCode="EVN" classCode="OBS"> <templateId root= "2.16.840.1.276200.10.20.22.4.2" /> <id nullFlavor="NA" /> < code codeSystem="local" code="ASEGR" displayName="Absolute Neutrophils" /> <statusCode code="completed" /> <effectiveTime value="259324286251 " /> <value unit="10*3/uL" xsi:type="PQ" value="7.74" /> < interpretationCode codeSystem="local" code="*" /> <referenceRange> <observationRange> <text>1.90-7.00</text> </ observationRange> </referenceRange> </observation> </ component> <component> <observation moodCode="EVN" classCode="OBS"> <templateId root="16.840.1.152234.10.20.22.4.2" /> <id nullFlavor="NA" /> <code codeSystem="local" code="BASOR" displayName= "Basophils" /> <statusCode code="completed" /> <effectiveTime value="" /> <value unit="%" xsi:type="PQ" value="0" /> <referenceRange> <observationRange> <text>0-2< /text> </observationRange> </referenceRange> </ observation> </component> <component> <observation moodCode= "EVN" classCode="OBS"> <templateId root="16.840.1.254548.10.20.22.4.2 " /> <id nullFlavor="NA" /> <code codeSystem="local" code= "EOSR" displayName="Eosinophils" /> <statusCode code="completed" /> <effectiveTime value="114987089965" /> <value unit="%" xsi: type="PQ" value="2" /> <referenceRange> <observationRange> <text>0-4</text> </observationRange> </ referenceRange> </observation> </component> <component> <observation moodCode="EVN" classCode="OBS"> <templateId root= "10.29.840.1.621528.10.20.22.4.2" /> <id nullFlavor="NA" /> < code codeSystem="local" code="HCT" displayName="HCT" /> <statusCode code="completed" /> <effectiveTime value="354482100083" /> < value unit="%" xsi:type="PQ" value="46.8" /> <referenceRange> <observationRange> <text>42.0-52.0</text> </ observationRange> </referenceRange> </observation> </ component> <component> <observation moodCode="EVN" classCode="OBS"> <templateId root="2.16.840.1.207189.10..4.2" /> <id nullFlavor="NA" /> <code codeSystem="local" code="HGB" displayName="HGB " /> <statusCode code="completed" /> <effectiveTime value= "766573694364" /> <value unit="g/dL" xsi:type="PQ" value="15.8" /> <referenceRange> <observationRange> <text>14.0- 18.0</text> </observationRange> </referenceRange> </ observation> </component> <component> <observation moodCode= "EVN" classCode="OBS"> <templateId root="216.840.1.127191.07.02.22.4.2 " /> <id nullFlavor="NA" /> <code codeSystem="local" code= "IMGA" displayName="Immature Granulocytes" /> <statusCode code= "completed" /> <effectiveTime value="604546027992" /> <value unit="%" xsi:type="PQ" value="0.3" /> <referenceRange> < observationRange> <text>0.0-1.0</text> </ observationRange> </referenceRange> </observation> </ component> <component> <observation moodCode="EVN" classCode="OBS"> <templateId root="216.840.1.917390.10..4.2" /> <id nullFlavor="NA" /> <code codeSystem="local" code="LYMPR" displayName= "Lymphocytes" /> <statusCode code="completed" /> < effectiveTime value="837601976323" /> <value unit="%" xsi:type="PQ " value="14" /> <interpretationCode codeSystem="local" code="*" /> <referenceRange> <observationRange> <text>20-46</ text> </observationRange> </referenceRange> </ observation> </component> <component> <observation moodCode= "EVN" classCode="OBS"> <templateId root="216.840.1.950447.10..22.4.2 " /> <id nullFlavor="NA" /> <code codeSystem="local" code="MCH " displayName="MCH" /> <statusCode code="completed" /> < effectiveTime value="978835880621" /> <value unit="pg" xsi:type="PQ" value="29.0" /> <referenceRange> <observationRange> <text>27.0-32.0</text> </observationRange> </ referenceRange> </observation> </component> <component> <observation moodCode="EVN" classCode="OBS"> <templateId root= "10.29.840.1.746685.10..4.2" /> <id nullFlavor="NA" /> < code codeSystem="local" code="MCHC" displayName="MCHC" /> <statusCode code="completed" /> <effectiveTime value="673192937849" /> < value unit="g/dL" xsi:type="PQ" value="33.8" /> <referenceRange> <observationRange> <text>32.0-36.0</text> </ observationRange> </referenceRange> </observation> </ component> <component> <observation moodCode="EVN" classCode="OBS"> <templateId root="16.840.1.791750.10.20.22.4.2" /> <id nullFlavor="NA" /> <code codeSystem="local" code="MCV" displayName="MCV " /> <statusCode code="completed" /> <effectiveTime value= "" /> <value unit="fL" xsi:type="PQ" value="86.0" /> <referenceRange> <observationRange> <text>82.0-99.0< /text> </observationRange> </referenceRange> </ observation> </component> <component> <observation moodCode= "EVN" classCode="OBS"> <templateId root="16.840.1.332622.10.20.22.4.2 " /> <id nullFlavor="NA" /> <code codeSystem="local" code= "MONOR" displayName="Monocytes" /> <statusCode code="completed" /> <effectiveTime value="" /> <value unit="%" xsi: type="PQ" value="7" /> <referenceRange> <observationRange> <text>4-11</text> </observationRange> </ referenceRange> </observation> </component> <component> <observation moodCode="EVN" classCode="OBS"> <templateId root= "16.840.1.771223.10.20.22.4.2" /> <id nullFlavor="NA" /> < code codeSystem="local" code="MPV" displayName="MPV" /> <statusCode code="completed" /> <effectiveTime value="174783664817" /> < value unit="fL" xsi:type="PQ" value="10.8" /> <referenceRange> <observationRange> <text>9.4-12.3</text> </ observationRange> </referenceRange> </observation> </ component> <component> <observation moodCode="EVN" classCode="OBS"> <templateId root="10.29.840.1.866424.07.02.22.4.2" /> <id nullFlavor="NA" /> <code codeSystem="local" code="SEGR" displayName= "Neutrophils" /> <statusCode code="completed" /> < effectiveTime value="" /> <value unit="%" xsi:type="PQ " value="76" /> <interpretationCode codeSystem="local" code="*" /> <referenceRange> <observationRange> <text>51-75</ text> </observationRange> </referenceRange> </ observation> </component> <component> <observation moodCode= "EVN" classCode="OBS"> <templateId root="216.840.1.216928...4.2 " /> <id nullFlavor="NA" /> <code codeSystem="local" code= "NRBCA" displayName="Nucleated RBC Automated" /> <statusCode code= "completed" /> <effectiveTime value="" /> <value unit="/100WBC" xsi:type="PQ" value="0.0" /> <referenceRange> <observationRange> <text /> </observationRange> </referenceRange> </observation> </component> <component> <observation moodCode="EVN" classCode="OBS"> <templateId root= "16.840.1.010134.10..4.2" /> <id nullFlavor="NA" /> < code codeSystem="local" code="PLT" displayName="Platelet Count" /> < statusCode code="completed" /> <effectiveTime value="" /> <value unit="K/uL" xsi:type="PQ" value="208" /> < referenceRange> <observationRange> <text>150-400</text> </observationRange> </referenceRange> </observation > </component> <component> <observation moodCode="EVN" classCode="OBS"> <templateId root="16.840.1.673666.22.4.2" /> <id nullFlavor="NA" /> <code codeSystem="local" code="RBC" displayName="RBC" /> <statusCode code="completed" /> < effectiveTime value="" /> <value unit="10*6/uL" xsi:type= "PQ" value="5.44" /> <referenceRange> <observationRange> <text>4.60-6.20</text> </observationRange> </ referenceRange> </observation> </component> <component> <observation moodCode="EVN" classCode="OBS"> <templateId root= "10.29.840.1.586631.22.4.2" /> <id nullFlavor="NA" /> < code codeSystem="local" code="RDW" displayName="RDW" /> <statusCode code="completed" /> <effectiveTime value="" /> < value unit="%" xsi:type="PQ" value="13.7" /> <referenceRange> <observationRange> <text>11.5-14.5</text> </ observationRange> </referenceRange> </observation> </ component> <component> <observation moodCode="EVN" classCode="OBS"> <templateId root="10.29.840.1.431785.10.20.22.4.2" /> <id nullFlavor="NA" /> <code codeSystem="local" code="WBCIR" displayName= "WBC" /> <statusCode code="completed" /> <effectiveTime value= "220142322566" /> <value unit="K/uL" xsi:type="PQ" value="10.1" /> <referenceRange> <observationRange> <text>4.8-10.8 </text> </observationRange> </referenceRange> </ observation> </component> </organizer> </entry> <entry> <organizer moodCode="EVN" classCode="BATTERY"> <templateId root= "216.840.1.486829.10..22.4.1" /> <id nullFlavor="NA" /> <code codeSystem="local" code="UA" displayName="Urinalysis with reflex microscopic" / > <statusCode code="completed" /> <component> <observation moodCode="EVN" classCode="OBS"> <templateId root= "216.840.1.689431.10...4.2" /> <id nullFlavor="NA" /> < code codeSystem="local" code="UAPP" displayName="Appearance" /> < statusCode code="completed" /> <effectiveTime value="702152809722" /> <value unit="NA" xsi:type="PQ" value="Clear" /> < referenceRange> <observationRange> <text /> < /observationRange> </referenceRange> </observation> </ component> <component> <observation moodCode="EVN" classCode="OBS"> <templateId root="16.840.1.263476.10..4.2" /> <id nullFlavor="NA" /> <code codeSystem="local" code="UBIL" displayName= "Bilirubin" /> <statusCode code="completed" /> <effectiveTime value="580686394655" /> <value unit="NA" xsi:type="PQ" value="Negative " /> <referenceRange> <observationRange> <text> Negative</text> </observationRange> </referenceRange> </observation> </component> <component> <observation moodCode ="EVN" classCode="OBS"> <templateId root= "16.840.1.817328.10..22.4.2" /> <id nullFlavor="NA" /> < code codeSystem="local" code="UBLD" displayName="Blood" /> <statusCode code="completed" /> <effectiveTime value="" /> < value unit="NA" xsi:type="PQ" value="Pos 2+" /> <interpretationCode codeSystem="local" code="*" /> <referenceRange> < observationRange> <text>Negative</text> </ observationRange> </referenceRange> </observation> </ component> <component> <observation moodCode="EVN" classCode="OBS"> <templateId root="16.840.1.944384...4.2" /> <id nullFlavor="NA" /> <code codeSystem="local" code="UCOLR" displayName= "Color" /> <statusCode code="completed" /> <effectiveTime value="" /> <value unit="NA" xsi:type="PQ" value="Colorless " /> <referenceRange> <observationRange> <text /> </observationRange> </referenceRange> </ observation> </component> <component> <observation moodCode= "EVN" classCode="OBS"> <templateId root="16.840.1.294626.10..22.4.2 " /> <id nullFlavor="NA" /> <code codeSystem="local" code= "UGLU" displayName="Glucose, Urine" /> <statusCode code="completed" /> <effectiveTime value="" /> <value unit="" xsi: type="PQ" value="Negative" /> <referenceRange> < observationRange> <text>Negative</text> </ observationRange> </referenceRange> </observation> </ component> <component> <observation moodCode="EVN" classCode="OBS"> <templateId root="216.840.1.800615.10.4.2" /> <id nullFlavor="NA" /> <code codeSystem="local" code="UKET" displayName= "Ketones" /> <statusCode code="completed" /> <effectiveTime value="" /> <value unit="" xsi:type="PQ" value="Negative" / > <referenceRange> <observationRange> <text> Negative</text> </observationRange> </referenceRange> </observation> </component> <component> <observation moodCode ="EVN" classCode="OBS"> <templateId root= "216.840.1.096192.07.02.22.4.2" /> <id nullFlavor="NA" /> < code codeSystem="local" code="ULEU" displayName="Leukocyte Esterase" /> <statusCode code="completed" /> <effectiveTime value="" / > <value unit="NA" xsi:type="PQ" value="Negative" /> < referenceRange> <observationRange> <text>Negative</text > </observationRange> </referenceRange> </observation > </component> <component> <observation moodCode="EVN" classCode="OBS"> <templateId root="16.840.1.681987.1022.4.2" /> <id nullFlavor="NA" /> <code codeSystem="local" code="UNIT" displayName="Nitrites" /> <statusCode code="completed" /> < effectiveTime value="" /> <value unit="NA" xsi:type="PQ" value="Negative" /> <referenceRange> <observationRange> <text>Negative</text> </observationRange> </ referenceRange> </observation> </component> <component> <observation moodCode="EVN" classCode="OBS"> <templateId root= "10.29.840.1.132141.10.4.2" /> <id nullFlavor="NA" /> < code codeSystem="local" code="UPH" displayName="pH" /> <statusCode code ="completed" /> <effectiveTime value="" /> <value unit="NA" xsi:type="PQ" value="7.0" /> <referenceRange> < observationRange> <text>5.0-8.0</text> </ observationRange> </referenceRange> </observation> </ component> <component> <observation moodCode="EVN" classCode="OBS"> <templateId root="10.29.840.1.098732.07.02.22.4.2" /> <id nullFlavor="NA" /> <code codeSystem="local" code="UPRO" displayName= "Protein" /> <statusCode code="completed" /> <effectiveTime value="" /> <value unit="NA" xsi:type="PQ" value="Negative " /> <referenceRange> <observationRange> <text> Negative</text> </observationRange> </referenceRange> </observation> </component> <component> <observation moodCode ="EVN" classCode="OBS"> <templateId root= "10.29.840.1.428643.10.4.2" /> <id nullFlavor="NA" /> < code codeSystem="local" code="USPG" displayName="Specific [place]" /> < statusCode code="completed" /> <effectiveTime value="" /> <value unit="NA" xsi:type="PQ" value="<1.003" /> < referenceRange> <observationRange> <text>1.003-1.030</ text> </observationRange> </referenceRange> </ observation> </component> <component> <observation moodCode= "EVN" classCode="OBS"> <templateId root="216.840.1.672434.10.20.22.4.2 " /> <id nullFlavor="NA" /> <code codeSystem="local" code= "UTYP" displayName="UA Collection type" /> <statusCode code="completed " /> <effectiveTime value="782034419782" /> <value unit="NA" xsi:type="PQ" value="Clean Catch" /> <referenceRange> < observationRange> <text /> </observationRange> </referenceRange> </observation> </component> <component> <observation moodCode="EVN" classCode="OBS"> <templateId root= "10.29.840.1.787213.10..4.2" /> <id nullFlavor="NA" /> < code codeSystem="local" code="UURO" displayName="Urobilinogen" /> < statusCode code="completed" /> <effectiveTime value="002612599895" /> <value unit="mg/dL" xsi:type="PQ" value="Negative" /> < referenceRange> <observationRange> <text><1.0</text> </observationRange> </referenceRange> </observation > </component> </organizer> </entry> <entry> <organizer moodCode= "EVN" classCode="BATTERY"> <templateId root="16.840.1.567315.10.20.22.4.1 " /> <id nullFlavor="NA" /> <code codeSystem="local" code="UMIC" displayName="Urine Microscopic" /> <statusCode code="completed" /> < component> <observation moodCode="EVN" classCode="OBS"> < templateId root="16.840.1.424206.07.02.22.4.2" /> <id nullFlavor="NA " /> <code codeSystem="local" code="UBAC" displayName="Bacteria" /> <statusCode code="completed" /> <effectiveTime value= "" /> <value unit="NA" xsi:type="PQ" value="None Seen" /> <referenceRange> <observationRange> <text /> </observationRange> </referenceRange> </observation> </component> <component> <observation moodCode="EVN" classCode= "OBS"> <templateId root="16.840.1.591673.07.02.22.4.2" /> < id nullFlavor="NA" /> <code codeSystem="local" code="UEPI" displayName= "Epithelial Cells" /> <statusCode code="completed" /> < effectiveTime value="" /> <value unit="/HPF" xsi:type="PQ" value="None Seen" /> <referenceRange> <observationRange> <text /> </observationRange> </referenceRange> </observation> </component> <component> <observation moodCode="EVN" classCode="OBS"> <templateId root= "10.29.840.1.353034.1022.4.2" /> <id nullFlavor="NA" /> < code codeSystem="local" code="URBC" displayName="RBC, Urine" /> < statusCode code="completed" /> <effectiveTime value="" /> <value unit="/HPF" xsi:type="PQ" value="0" /> <referenceRange > <observationRange> <text>0-2</text> </ observationRange> </referenceRange> </observation> </ component> <component> <observation moodCode="EVN" classCode="OBS"> <templateId root="216.840.1.574859.10..22.4.2" /> <id nullFlavor="NA" /> <code codeSystem="local" code="UWBC" displayName= "WBC, Urine" /> <statusCode code="completed" /> < effectiveTime value="626736909654" /> <value unit="/HPF" xsi:type="PQ" value="0" /> <referenceRange> <observationRange> <text>0-4</text> </observationRange> </referenceRange> </observation> </component> </organizer> </entry> <entry> < organizer moodCode="EVN" classCode="BATTERY"> <templateId root= "16.840.1.539832.10..22.4.1" /> <id nullFlavor="NA" /> <code codeSystem="local" code="CMP" displayName="Comprehensive Metabolic Panel (CMP)" /> <statusCode code="completed" /> <component> <observation moodCode="EVN" classCode="OBS"> <templateId root= "216.840.1.419857.10..22.4.2" /> <id nullFlavor="NA" /> < code codeSystem="local" code="ALB" displayName="Albumin" /> < statusCode code="completed" /> <effectiveTime value="324998365787" /> <value unit="g/dL" xsi:type="PQ" value="4.2" /> < referenceRange> <observationRange> <text>3.5-4.8</text> </observationRange> </referenceRange> </observation > </component> <component> <observation moodCode="EVN" classCode="OBS"> <templateId root="16.840.1.082645.10..22.4.2" /> <id nullFlavor="NA" /> <code codeSystem="local" code="ALP" displayName="Alkaline Phosphatase" /> <statusCode code="completed" /> <effectiveTime value="" /> <value unit="U/L" xsi: type="PQ" value="78" /> <referenceRange> <observationRange> <text>26-104</text> </observationRange> </ referenceRange> </observation> </component> <component> <observation moodCode="EVN" classCode="OBS"> <templateId root= "10.29.840.1.691328.10..22.4.2" /> <id nullFlavor="NA" /> < code codeSystem="local" code="ALT" displayName="ALT (SGPT)" /> < statusCode code="completed" /> <effectiveTime value="" /> <value unit="U/L" xsi:type="PQ" value="18" /> <referenceRange > <observationRange> <text>17-63</text> </ observationRange> </referenceRange> </observation> </ component> <component> <observation moodCode="EVN" classCode="OBS"> <templateId root="10.29.840.1.638968.10..22.4.2" /> <id nullFlavor="NA" /> <code codeSystem="local" code="AGAP" displayName= "Anion Gap" /> <statusCode code="completed" /> <effectiveTime value="758026796803" /> <value unit="mEq/L" xsi:type="PQ" value="8" /> <referenceRange> <observationRange> <text>3-20 </text> </observationRange> </referenceRange> </ observation> </component> <component> <observation moodCode= "EVN" classCode="OBS"> <templateId root="2.16.840.1.860967.10..4.2 " /> <id nullFlavor="NA" /> <code codeSystem="local" code="AST " displayName="AST (SGOT)" /> <statusCode code="completed" /> <effectiveTime value="" /> <value unit="U/L" xsi:type="PQ" value="26" /> <referenceRange> <observationRange> <text>15-41</text> </observationRange> </referenceRange > </observation> </component> <component> <observation moodCode="EVN" classCode="OBS"> <templateId root= "216.840.1.309992.07.02.22.4.2" /> <id nullFlavor="NA" /> < code codeSystem="local" code="BILIT" displayName="Bilirubin Total" /> < statusCode code="completed" /> <effectiveTime value="" /> <value unit="mg/dL" xsi:type="PQ" value="1.0" /> < referenceRange> <observationRange> <text>0.2-1.2</text> </observationRange> </referenceRange> </observation > </component> <component> <observation moodCode="EVN" classCode="OBS"> <templateId root="216.840.1.247949..22.4.2" /> <id nullFlavor="NA" /> <code codeSystem="local" code="BUN" displayName="BUN" /> <statusCode code="completed" /> < effectiveTime value="" /> <value unit="mg/dL" xsi:type="PQ " value="14" /> <referenceRange> <observationRange> <text>4-20</text> </observationRange> </referenceRange > </observation> </component> <component> <observation moodCode="EVN" classCode="OBS"> <templateId root= "10.29.840.1.511930.10.20.22.4.2" /> <id nullFlavor="NA" /> < code codeSystem="local" code="CA" displayName="Calcium" /> <statusCode code="completed" /> <effectiveTime value="186913304614" /> < value unit="mg/dL" xsi:type="PQ" value="9.7" /> <referenceRange> <observationRange> <text>8.6-10.0</text> </ observationRange> </referenceRange> </observation> </ component> <component> <observation moodCode="EVN" classCode="OBS"> <templateId root="840.1.378328.10.22.4.2" /> <id nullFlavor="NA" /> <code codeSystem="local" code="CL" displayName= "Chloride" /> <statusCode code="completed" /> <effectiveTime value="625268021501" /> <value unit="mEq/L" xsi:type="PQ" value="98" / > <interpretationCode codeSystem="local" code="*" /> < referenceRange> <observationRange> <text>99-109</text> </observationRange> </referenceRange> </observation> </component> <component> <observation moodCode="EVN" classCode ="OBS"> <templateId root="10.29.840.1.390167.10.20.22.4.2" /> < id nullFlavor="NA" /> <code codeSystem="local" code="CO2" displayName= "CO2" /> <statusCode code="completed" /> <effectiveTime value= "" /> <value unit="mEq/L" xsi:type="PQ" value="29" /> <referenceRange> <observationRange> <text>22-32</ text> </observationRange> </referenceRange> </ observation> </component> <component> <observation moodCode= "EVN" classCode="OBS"> <templateId root="10.29.840.1.473126.10..4.2 " /> <id nullFlavor="NA" /> <code codeSystem="local" code= "CREAT" displayName="Creatinine" /> <statusCode code="completed" /> <effectiveTime value="" /> <value unit="mg/dL" xsi: type="PQ" value="0.96" /> <referenceRange> <observationRange > <text>0.64-1.27</text> </observationRange> </ referenceRange> </observation> </component> <component> <observation moodCode="EVN" classCode="OBS"> <templateId root= "10.29.840.1.881040.07.02.22.4.2" /> <id nullFlavor="NA" /> < code codeSystem="local" code="GLOB" displayName="Globulin" /> < statusCode code="completed" /> <effectiveTime value="" /> <value unit="g/dL" xsi:type="PQ" value="3.0" /> < referenceRange> <observationRange> <text>1.9-4.3</text> </observationRange> </referenceRange> </observation > </component> <component> <observation moodCode="EVN" classCode="OBS"> <templateId root="10.29.840.1.743778.07.02.22.4.2" /> <id nullFlavor="NA" /> <code codeSystem="local" code="GLU" displayName="Glucose" /> <statusCode code="completed" /> < effectiveTime value="" /> <value unit="mg/dL" xsi:type="PQ " value="120" /> <interpretationCode codeSystem="local" code="*" /> <referenceRange> <observationRange> <text>70-100< /text> </observationRange> </referenceRange> </ observation> </component> <component> <observation moodCode= "EVN" classCode="OBS"> <templateId root="216.840.1.801603.07.02.224.2 " /> <id nullFlavor="NA" /> <code codeSystem="local" code="K" displayName="Potassium" /> <statusCode code="completed" /> < effectiveTime value="" /> <value unit="mEq/L" xsi:type="PQ " value="3.0" /> <interpretationCode codeSystem="local" code="*" /> <referenceRange> <observationRange> <text>3.6-5.1 </text> </observationRange> </referenceRange> </ observation> </component> <component> <observation moodCode= "EVN" classCode="OBS"> <templateId root="16.840.1.258747.07.02.22.4.2 " /> <id nullFlavor="NA" /> <code codeSystem="local" code="TP " displayName="Protein" /> <statusCode code="completed" /> < effectiveTime value="" /> <value unit="g/dL" xsi:type="PQ" value="7.2" /> <referenceRange> <observationRange> <text>6.1-7.9</text> </observationRange> </ referenceRange> </observation> </component> <component> <observation moodCode="EVN" classCode="OBS"> <templateId root= "2.16.840.1.492504.10.4.2" /> <id nullFlavor="NA" /> < code codeSystem="local" code="NA" displayName="Sodium" /> <statusCode code="completed" /> <effectiveTime value="[id number]" /> < value unit="mEq/L" xsi:type="PQ" value="135" /> <interpretationCode codeSystem="local" code="*" /> <referenceRange> < observationRange> <text>136-144</text> </ observationRange> </referenceRange> </observation> </ component> </organizer> </entry> <entry> <organizer moodCode="EVN" classCode="BATTERY"> <templateId root="2.16.840.1.707508.10..22.4.1" /> <id nullFlavor="NA" /> <code codeSystem="local" code="LACID" displayName="Lactic Acid Venous" /> <statusCode code="completed" /> < component> <observation moodCode="EVN" classCode="OBS"> < templateId root="2.16.840.1.318588.10..22.4.2" /> <id nullFlavor="NA " /> <code codeSystem="local" code="LACID" displayName="Lactic Acid Venous" /> <statusCode code="completed" /> <effectiveTime value="991117079128" /> <value unit="mEq/L" xsi:type="PQ" value="1.1" / > <referenceRange> <observationRange> <text>0.5 -2.0</text> </observationRange> </referenceRange> </ observation> </component> </organizer> </entry> <entry> <organizer moodCode="EVN" classCode="BATTERY"> <templateId root= "10.29.840.1.480100.10.4.1" /> <id nullFlavor="NA" /> <code codeSystem="local" code="GFR" displayName="eGFR" /> <statusCode code= "completed" /> <component> <observation moodCode="EVN" classCode= "OBS"> <templateId root="840.1.960736.07.02.22.4.2" /> < id nullFlavor="NA" /> <code codeSystem="local" code="GFR" displayName= "eGFR" /> <statusCode code="completed" /> <effectiveTime value ="166780663499" /> <value unit="mL/min" xsi:type="PQ" value=">60" / > <referenceRange> <observationRange> <text>&gt ;60</text> </observationRange> </referenceRange> </ observation> </component> </organizer> </entry> <entry> <organizer moodCode="EVN" classCode="BATTERY"> <templateId root= "10.29.840.1.217593.07.02.22.4.1" /> <id nullFlavor="NA" /> <code codeSystem="local" code="MG" displayName="Magnesium" /> <statusCode code= "completed" /> <component> <observation moodCode="EVN" classCode= "OBS"> <templateId root="10.29.840.1.056802.07.02.22.4.2" /> < id nullFlavor="NA" /> <code codeSystem="local" code="MG" displayName= "Magnesium" /> <statusCode code="completed" /> <effectiveTime value="323287251451" /> <value unit="mg/dL" xsi:type="PQ" value="1.9" / > <referenceRange> <observationRange> <text>1.8 -2.5</text> </observationRange> </referenceRange> </ observation> </component> </organizer> </entry> <entry> <organizer moodCode="EVN" classCode="BATTERY"> <templateId root= "10.29.840.1.414390.1022.4.1" /> <id nullFlavor="NA" /> <code codeSystem="local" code="BMP" displayName="Basic Metabolic Panel (BMP)" /> <statusCode code="completed" /> <component> <observation moodCode= "EVN" classCode="OBS"> <templateId root="10.29.840.1.934345.10...4.2 " /> <id nullFlavor="NA" /> <code codeSystem="local" code= "AGAP" displayName="Anion Gap" /> <statusCode code="completed" /> <effectiveTime value="" /> <value unit="mEq/L" xsi: type="PQ" value="6" /> <referenceRange> <observationRange> <text>3-20</text> </observationRange> </ referenceRange> </observation> </component> <component> <observation moodCode="EVN" classCode="OBS"> <templateId root= "10.29.840.1.489560.10.22.4.2" /> <id nullFlavor="NA" /> < code codeSystem="local" code="BUN" displayName="BUN" /> <statusCode code="completed" /> <effectiveTime value="" /> < value unit="mg/dL" xsi:type="PQ" value="27" /> <interpretationCode codeSystem="local" code="*" /> <referenceRange> < observationRange> <text>4-20</text> </observationRange> </referenceRange> </observation> </component> < component> <observation moodCode="EVN" classCode="OBS"> < templateId root="10.29.840.1.246552.10.22.4.2" /> <id nullFlavor="NA " /> <code codeSystem="local" code="CA" displayName="Calcium" /> <statusCode code="completed" /> <effectiveTime value=" " /> <value unit="mg/dL" xsi:type="PQ" value="9.7" /> < referenceRange> <observationRange> <text>8.6-10.0</text > </observationRange> </referenceRange> </observation > </component> <component> <observation moodCode="EVN" classCode="OBS"> <templateId root="840.1.490614.10.4.2" /> <id nullFlavor="NA" /> <code codeSystem="local" code="CL" displayName="Chloride" /> <statusCode code="completed" /> < effectiveTime value="" /> <value unit="mEq/L" xsi:type="PQ " value="109" /> <referenceRange> <observationRange> <text>99-109</text> </observationRange> </ referenceRange> </observation> </component> <component> <observation moodCode="EVN" classCode="OBS"> <templateId root= "840.1.160766.10.4.2" /> <id nullFlavor="NA" /> < code codeSystem="local" code="CO2" displayName="CO2" /> <statusCode code="completed" /> <effectiveTime value="" /> < value unit="mEq/L" xsi:type="PQ" value="24" /> <referenceRange> <observationRange> <text>22-32</text> </ observationRange> </referenceRange> </observation> </ component> <component> <observation moodCode="EVN" classCode="OBS"> <templateId root="10.29.840.1.333602.10..4.2" /> <id nullFlavor="NA" /> <code codeSystem="local" code="CREAT" displayName= "Creatinine" /> <statusCode code="completed" /> < effectiveTime value="" /> <value unit="mg/dL" xsi:type="PQ " value="1.22" /> <referenceRange> <observationRange> <text>0.64-1.27</text> </observationRange> </ referenceRange> </observation> </component> <component> <observation moodCode="EVN" classCode="OBS"> <templateId root= "10.29.840.1.161773.07.02.22.4.2" /> <id nullFlavor="NA" /> < code codeSystem="local" code="GLU" displayName="Glucose" /> < statusCode code="completed" /> <effectiveTime value="" /> <value unit="mg/dL" xsi:type="PQ" value="95" /> < referenceRange> <observationRange> <text>70-100</text> </observationRange> </referenceRange> </observation> </component> <component> <observation moodCode="EVN" classCode ="OBS"> <templateId root="10.29.840.1.561437.10..22.4.2" /> < id nullFlavor="NA" /> <code codeSystem="local" code="K" displayName= "Potassium" /> <statusCode code="completed" /> <effectiveTime value="" /> <value unit="mEq/L" xsi:type="PQ" value="4.1" / > <referenceRange> <observationRange> <text>3.6 -5.1</text> </observationRange> </referenceRange> </ observation> </component> <component> <observation moodCode= "EVN" classCode="OBS"> <templateId root="16.840.1.042805.10.22.4.2 " /> <id nullFlavor="NA" /> <code codeSystem="local" code="NA " displayName="Sodium" /> <statusCode code="completed" /> < effectiveTime value="" /> <value unit="mEq/L" xsi:type="PQ " value="139" /> <referenceRange> <observationRange> <text>136-144</text> </observationRange> </ referenceRange> </observation> </component> </organizer> </entry > <entry> <organizer moodCode="EVN" classCode="BATTERY"> <templateId root="16.840.1.999308..22.4.1" /> <id nullFlavor="NA" /> <code codeSystem="local" code="GFR" displayName="eGFR" /> <statusCode code= "completed" /> <component> <observation moodCode="EVN" classCode= "OBS"> <templateId root="10.29.840.1.194437...22.4.2" /> < id nullFlavor="NA" /> <code codeSystem="local" code="GFR" displayName= "eGFR" /> <statusCode code="completed" /> <effectiveTime value ="364300472457" /> <value unit="mL/min" xsi:type="PQ" value="60" /> <referenceRange> <observationRange> <text>>60< /text> </observationRange> </referenceRange> </ observation> </component> </organizer> </entry> <entry> <organizer moodCode="EVN" classCode="BATTERY"> <templateId root= "10.29.840.1.815748.10.22.4.1" /> <id nullFlavor="NA" /> <code codeSystem="local" code="B12FO" displayName="B12 and Folate" /> < statusCode code="completed" /> <component> <observation moodCode= "EVN" classCode="OBS"> <templateId root="10.29.840.1.071318.10..4.2 " /> <id nullFlavor="NA" /> <code codeSystem="local" code= "FOLAT" displayName="Folate" /> <statusCode code="completed" /> <effectiveTime value="382691130954" /> <value unit="ng/mL" xsi:type= "PQ" value="9.3" /> <referenceRange> <observationRange> <text>7.0-31.4</text> </observationRange> </ referenceRange> </observation> </component> <component> <observation moodCode="EVN" classCode="OBS"> <templateId root= "10.29.840.1.999549.10.22.4.2" /> <id nullFlavor="NA" /> < code codeSystem="local" code="B12" displayName="Vitamin B12" /> < statusCode code="completed" /> <effectiveTime value="201405831966" /> <value unit="pg/mL" xsi:type="PQ" value="141" /> < interpretationCode codeSystem="local" code="*" /> <referenceRange> <observationRange> <text>213816</text> </ observationRange> </referenceRange> </observation> </ component> </organizer> </entry> <entry> <organizer moodCode="EVN" classCode="BATTERY"> <templateId root="10.29.840.1.543688.10...4.1" /> <id nullFlavor="NA" /> <code codeSystem="local" code="HIV" displayName ="HIV Antigen/Antibody Combo" /> <statusCode code="completed" /> < component> <observation moodCode="EVN" classCode="OBS"> < templateId root="840.1.087141.10..4.2" /> <id nullFlavor="NA " /> <code codeSystem="local" code="HIV" displayName="HIV Antigen/ Antibody Combo" /> <statusCode code="completed" /> < effectiveTime value="521582322567" /> <value unit="NA" xsi:type="PQ" value="Negative" /> <referenceRange> <observationRange> <text /> </observationRange> </referenceRange> </observation> </component> </organizer> </entry> <entry> < organizer moodCode="EVN" classCode="BATTERY"> <templateId root= "840.1.256968.07.02.22.4.1" /> <id nullFlavor="NA" /> <code codeSystem="local" code="CBCWD" displayName="CBC With Platelet and Differential " /> <statusCode code="completed" /> <component> <observation moodCode="EVN" classCode="OBS"> <templateId root= "10.29.840.1.527453.10...4.2" /> <id nullFlavor="NA" /> < code codeSystem="local" code="ABASR" displayName="Absolute Basophils" /> <statusCode code="completed" /> <effectiveTime value="373575321817" /> <value unit="10*3/uL" xsi:type="PQ" value="0.04" /> < referenceRange> <observationRange> <text>0.00-0.20</text > </observationRange> </referenceRange> </observation > </component> <component> <observation moodCode="EVN" classCode="OBS"> <templateId root="2.16.840.1.963574.10..22.4.2" /> <id nullFlavor="NA" /> <code codeSystem="local" code="AEOSR" displayName="Absolute Eosinophils" /> <statusCode code="completed" /> <effectiveTime value="054699208160" /> <value unit="10*3/uL" xsi:type="PQ" value="0.24" /> <referenceRange> < observationRange> <text>0.00-0.50</text> </ observationRange> </referenceRange> </observation> </ component> <component> <observation moodCode="EVN" classCode="OBS"> <templateId root="2.16.840.1.211520...22.4.2" /> <id nullFlavor="NA" /> <code codeSystem="local" code="ALYMR" displayName= "Absolute Lymphocytes" /> <statusCode code="completed" /> < effectiveTime value="522658491823" /> <value unit="10*3/uL" xsi:type= "PQ" value="1.51" /> <referenceRange> <observationRange> <text>0.80-3.30</text> </observationRange> </ referenceRange> </observation> </component> <component> <observation moodCode="EVN" classCode="OBS"> <templateId root= "16.840.1.661033.10.20.22.4.2" /> <id nullFlavor="NA" /> < code codeSystem="local" code="AMONR" displayName="Absolute Monocytes" /> <statusCode code="completed" /> <effectiveTime value="579062233484" /> <value unit="10*3/uL" xsi:type="PQ" value="0.70" /> < referenceRange> <observationRange> <text>0.30-1.00</text > </observationRange> </referenceRange> </observation > </component> <component> <observation moodCode="EVN" classCode="OBS"> <templateId root="16.840.1.177404.07.02.22.4.2" /> <id nullFlavor="NA" /> <code codeSystem="local" code="ASEGR" displayName="Absolute Neutrophils" /> <statusCode code="completed" /> <effectiveTime value="046550694925" /> <value unit="10*3/uL" xsi:type="PQ" value="5.96" /> <referenceRange> < observationRange> <text>1.90-7.00</text> </ observationRange> </referenceRange> </observation> </ component> <component> <observation moodCode="EVN" classCode="OBS"> <templateId root="16.840.1.024059.10..22.4.2" /> <id nullFlavor="NA" /> <code codeSystem="local" code="BASOR" displayName= "Basophils" /> <statusCode code="completed" /> <effectiveTime value="776613503350" /> <value unit="%" xsi:type="PQ" value="1" /> <referenceRange> <observationRange> <text>0-2< /text> </observationRange> </referenceRange> </ observation> </component> <component> <observation moodCode= "EVN" classCode="OBS"> <templateId root="16.840.1.003885.10..4.2 " /> <id nullFlavor="NA" /> <code codeSystem="local" code= "EOSR" displayName="Eosinophils" /> <statusCode code="completed" /> <effectiveTime value="873670738457" /> <value unit="%" xsi: type="PQ" value="3" /> <referenceRange> <observationRange> <text>0-4</text> </observationRange> </ referenceRange> </observation> </component> <component> <observation moodCode="EVN" classCode="OBS"> <templateId root= "10.29.840.1.660395.07.02.224.2" /> <id nullFlavor="NA" /> < code codeSystem="local" code="HCT" displayName="HCT" /> <statusCode code="completed" /> <effectiveTime value="740274872262" /> < value unit="%" xsi:type="PQ" value="43.5" /> <referenceRange> <observationRange> <text>42.0-52.0</text> </ observationRange> </referenceRange> </observation> </ component> <component> <observation moodCode="EVN" classCode="OBS"> <templateId root="10.29.840.1.656142.07.02.22.4.2" /> <id nullFlavor="NA" /> <code codeSystem="local" code="HGB" displayName="HGB " /> <statusCode code="completed" /> <effectiveTime value= "402984339145" /> <value unit="g/dL" xsi:type="PQ" value="14.4" /> <referenceRange> <observationRange> <text>14.0- 18.0</text> </observationRange> </referenceRange> </ observation> </component> <component> <observation moodCode= "EVN" classCode="OBS"> <templateId root="216.840.1.440415.1022.4.2 " /> <id nullFlavor="NA" /> <code codeSystem="local" code= "IMGA" displayName="Immature Granulocytes" /> <statusCode code= "completed" /> <effectiveTime value="086083118460" /> <value unit="%" xsi:type="PQ" value="0.2" /> <referenceRange> < observationRange> <text>0.0-1.0</text> </ observationRange> </referenceRange> </observation> </ component> <component> <observation moodCode="EVN" classCode="OBS"> <templateId root="216.840.1.156387.07.02.22.4.2" /> <id nullFlavor="NA" /> <code codeSystem="local" code="LYMPR" displayName= "Lymphocytes" /> <statusCode code="completed" /> < effectiveTime value="836180487781" /> <value unit="%" xsi:type="PQ " value="18" /> <interpretationCode codeSystem="local" code="*" /> <referenceRange> <observationRange> <text>20-46</ text> </observationRange> </referenceRange> </ observation> </component> <component> <observation moodCode= "EVN" classCode="OBS"> <templateId root="216.840.1.737863.10.4.2 " /> <id nullFlavor="NA" /> <code codeSystem="local" code="MCH " displayName="MCH" /> <statusCode code="completed" /> < effectiveTime value="031204221518" /> <value unit="pg" xsi:type="PQ" value="28.6" /> <referenceRange> <observationRange> <text>27.0-32.0</text> </observationRange> </ referenceRange> </observation> </component> <component> <observation moodCode="EVN" classCode="OBS"> <templateId root= "2.16.840.1.434951.07.02.22.4.2" /> <id nullFlavor="NA" /> < code codeSystem="local" code="MCHC" displayName="MCHC" /> <statusCode code="completed" /> <effectiveTime value="985956035514" /> < value unit="g/dL" xsi:type="PQ" value="33.1" /> <referenceRange> <observationRange> <text>32.0-36.0</text> </ observationRange> </referenceRange> </observation> </ component> <component> <observation moodCode="EVN" classCode="OBS"> <templateId root="2.16.840.1.017357.07.02.22.4.2" /> <id nullFlavor="NA" /> <code codeSystem="local" code="MCV" displayName="MCV " /> <statusCode code="completed" /> <effectiveTime value= "621477860072" /> <value unit="fL" xsi:type="PQ" value="86.3" /> <referenceRange> <observationRange> <text>82.0-99.0< /text> </observationRange> </referenceRange> </ observation> </component> <component> <observation moodCode= "EVN" classCode="OBS"> <templateId root="16.840.1.329404.10.20.22.4.2 " /> <id nullFlavor="NA" /> <code codeSystem="local" code= "MONOR" displayName="Monocytes" /> <statusCode code="completed" /> <effectiveTime value="196466624216" /> <value unit="%" xsi: type="PQ" value="8" /> <referenceRange> <observationRange> <text>4-11</text> </observationRange> </ referenceRange> </observation> </component> <component> <observation moodCode="EVN" classCode="OBS"> <templateId root= "10.29.840.1.498592.10..22.4.2" /> <id nullFlavor="NA" /> < code codeSystem="local" code="MPV" displayName="MPV" /> <statusCode code="completed" /> <effectiveTime value="863865477244" /> < value unit="fL" xsi:type="PQ" value="11.0" /> <referenceRange> <observationRange> <text>9.4-12.3</text> </ observationRange> </referenceRange> </observation> </ component> <component> <observation moodCode="EVN" classCode="OBS"> <templateId root="10.29.840.1.767472.10.20.22.4.2" /> <id nullFlavor="NA" /> <code codeSystem="local" code="SEGR" displayName= "Neutrophils" /> <statusCode code="completed" /> < effectiveTime value="974010881688" /> <value unit="%" xsi:type="PQ " value="70" /> <referenceRange> <observationRange> <text>51-75</text> </observationRange> </ referenceRange> </observation> </component> <component> <observation moodCode="EVN" classCode="OBS"> <templateId root= "216.840.1.828234.1022.4.2" /> <id nullFlavor="NA" /> < code codeSystem="local" code="NRBCA" displayName="Nucleated RBC Automated" /> <statusCode code="completed" /> <effectiveTime value= "" /> <value unit="/100WBC" xsi:type="PQ" value="0.0" /> <referenceRange> <observationRange> <text /> </observationRange> </referenceRange> </observation> </component> <component> <observation moodCode="EVN" classCode= "OBS"> <templateId root="10.29.840.1.932550.07.02.22.4.2" /> < id nullFlavor="NA" /> <code codeSystem="local" code="PLT" displayName= "Platelet Count" /> <statusCode code="completed" /> < effectiveTime value="" /> <value unit="K/uL" xsi:type="PQ" value="199" /> <referenceRange> <observationRange> <text>150-400</text> </observationRange> </ referenceRange> </observation> </component> <component> <observation moodCode="EVN" classCode="OBS"> <templateId root= "16.840.1.173028.1022.4.2" /> <id nullFlavor="NA" /> < code codeSystem="local" code="RBC" displayName="RBC" /> <statusCode code="completed" /> <effectiveTime value="" /> < value unit="10*6/uL" xsi:type="PQ" value="5.04" /> <referenceRange> <observationRange> <text>4.60-6.20</text> </ observationRange> </referenceRange> </observation> </ component> <component> <observation moodCode="EVN" classCode="OBS"> <templateId root="216.840.1.106464.10.20.22.4.2" /> <id nullFlavor="NA" /> <code codeSystem="local" code="RDW" displayName="RDW " /> <statusCode code="completed" /> <effectiveTime value= "169555832660" /> <value unit="%" xsi:type="PQ" value="13.7" /> <referenceRange> <observationRange> <text>11.5- 14.5</text> </observationRange> </referenceRange> </ observation> </component> <component> <observation moodCode= "EVN" classCode="OBS"> <templateId root="10.29.840.1.989346.10..22.4.2 " /> <id nullFlavor="NA" /> <code codeSystem="local" code= "WBCIR" displayName="WBC" /> <statusCode code="completed" /> < effectiveTime value="734800978265" /> <value unit="K/uL" xsi:type="PQ" value="8.5" /> <referenceRange> <observationRange> <text>4.8-10.8</text> </observationRange> </ referenceRange> </observation> </component> </organizer> </entry > <entry> <organizer moodCode="EVN" classCode="BATTERY"> <templateId root="16.840.1.522560.10.20.22.4.1" /> <id nullFlavor="NA" /> <code codeSystem="local" code="CMP" displayName="Comprehensive Metabolic Panel (CMP)" /> <statusCode code="completed" /> <component> <observation moodCode="EVN" classCode="OBS"> <templateId root= "16.840.1.725681.10.4.2" /> <id nullFlavor="NA" /> < code codeSystem="local" code="ALB" displayName="Albumin" /> < statusCode code="completed" /> <effectiveTime value="985868812194" /> <value unit="g/dL" xsi:type="PQ" value="3.7" /> < referenceRange> <observationRange> <text>3.5-4.8</text> </observationRange> </referenceRange> </observation > </component> <component> <observation moodCode="EVN" classCode="OBS"> <templateId root="840.1.329416.07.02.22.4.2" /> <id nullFlavor="NA" /> <code codeSystem="local" code="ALP" displayName="Alkaline Phosphatase" /> <statusCode code="completed" /> <effectiveTime value="670155418788" /> <value unit="U/L" xsi: type="PQ" value="67" /> <referenceRange> <observationRange> <text>26-104</text> </observationRange> </ referenceRange> </observation> </component> <component> <observation moodCode="EVN" classCode="OBS"> <templateId root= "10.29.840.1.299629.07.02.22.4.2" /> <id nullFlavor="NA" /> < code codeSystem="local" code="ALT" displayName="ALT (SGPT)" /> < statusCode code="completed" /> <effectiveTime value="106913738281" /> <value unit="U/L" xsi:type="PQ" value="22" /> <referenceRange > <observationRange> <text>17-63</text> </ observationRange> </referenceRange> </observation> </ component> <component> <observation moodCode="EVN" classCode="OBS"> <templateId root="10.29.840.1.096196.10...4.2" /> <id nullFlavor="NA" /> <code codeSystem="local" code="AGAP" displayName= "Anion Gap" /> <statusCode code="completed" /> <effectiveTime value="131708257644" /> <value unit="mEq/L" xsi:type="PQ" value="7" /> <referenceRange> <observationRange> <text>3-20 </text> </observationRange> </referenceRange> </ observation> </component> <component> <observation moodCode= "EVN" classCode="OBS"> <templateId root="840.1.833956.10...4.2 " /> <id nullFlavor="NA" /> <code codeSystem="local" code="AST " displayName="AST (SGOT)" /> <statusCode code="completed" /> <effectiveTime value="817369300859" /> <value unit="U/L" xsi:type="PQ" value="20" /> <referenceRange> <observationRange> <text>15-41</text> </observationRange> </referenceRange > </observation> </component> <component> <observation moodCode="EVN" classCode="OBS"> <templateId root= "10.29.840.1.040180.10..22.4.2" /> <id nullFlavor="NA" /> < code codeSystem="local" code="BILIT" displayName="Bilirubin Total" /> < statusCode code="completed" /> <effectiveTime value="[id number]" /> <value unit="mg/dL" xsi:type="PQ" value="0.6" /> < referenceRange> <observationRange> <text>0.2-1.2</text> </observationRange> </referenceRange> </observation > </component> <component> <observation moodCode="EVN" classCode="OBS"> <templateId root="10.29.840.1.780150.10.20.22.4.2" /> <id nullFlavor="NA" /> <code codeSystem="local" code="BUN" displayName="BUN" /> <statusCode code="completed" /> < effectiveTime value="602283266163" /> <value unit="mg/dL" xsi:type="PQ " value="28" /> <interpretationCode codeSystem="local" code="*" /> <referenceRange> <observationRange> <text>4-20</ text> </observationRange> </referenceRange> </ observation> </component> <component> <observation moodCode= "EVN" classCode="OBS"> <templateId root="10.29.840.1.012382.10.20.22.4.2 " /> <id nullFlavor="NA" /> <code codeSystem="local" code="CA " displayName="Calcium" /> <statusCode code="completed" /> < effectiveTime value="221848969587" /> <value unit="mg/dL" xsi:type="PQ " value="9.2" /> <referenceRange> <observationRange> <text>8.6-10.0</text> </observationRange> </ referenceRange> </observation> </component> <component> <observation moodCode="EVN" classCode="OBS"> <templateId root= "840.1.539420.10..22.4.2" /> <id nullFlavor="NA" /> < code codeSystem="local" code="CL" displayName="Chloride" /> < statusCode code="completed" /> <effectiveTime value="684353563064" /> <value unit="mEq/L" xsi:type="PQ" value="104" /> < referenceRange> <observationRange> <text>99-109</text> </observationRange> </referenceRange> </observation> </component> <component> <observation moodCode="EVN" classCode ="OBS"> <templateId root="2.16.840.1.695188...4.2" /> < id nullFlavor="NA" /> <code codeSystem="local" code="CO2" displayName= "CO2" /> <statusCode code="completed" /> <effectiveTime value= "031732355165" /> <value unit="mEq/L" xsi:type="PQ" value="26" /> <referenceRange> <observationRange> <text>22-32</ text> </observationRange> </referenceRange> </ observation> </component> <component> <observation moodCode= "EVN" classCode="OBS"> <templateId root="216.840.1.642833....4.2 " /> <id nullFlavor="NA" /> <code codeSystem="local" code= "CREAT" displayName="Creatinine" /> <statusCode code="completed" /> <effectiveTime value="459530851977" /> <value unit="mg/dL" xsi: type="PQ" value="1.14" /> <referenceRange> <observationRange > <text>0.64-1.27</text> </observationRange> </ referenceRange> </observation> </component> <component> <observation moodCode="EVN" classCode="OBS"> <templateId root= "16.840.1.160958.1022.4.2" /> <id nullFlavor="NA" /> < code codeSystem="local" code="GLOB" displayName="Globulin" /> < statusCode code="completed" /> <effectiveTime value="036394165367" /> <value unit="g/dL" xsi:type="PQ" value="2.5" /> < referenceRange> <observationRange> <text>1.9-4.3</text> </observationRange> </referenceRange> </observation > </component> <component> <observation moodCode="EVN" classCode="OBS"> <templateId root="10.29.840.1.199276.10.4.2" /> <id nullFlavor="NA" /> <code codeSystem="local" code="GLU" displayName="Glucose" /> <statusCode code="completed" /> < effectiveTime value="538527819950" /> <value unit="mg/dL" xsi:type="PQ " value="110" /> <interpretationCode codeSystem="local" code="*" /> <referenceRange> <observationRange> <text>70-100< /text> </observationRange> </referenceRange> </ observation> </component> <component> <observation moodCode= "EVN" classCode="OBS"> <templateId root="10.29.840.1.564182.10.22.4.2 " /> <id nullFlavor="NA" /> <code codeSystem="local" code="K" displayName="Potassium" /> <statusCode code="completed" /> < effectiveTime value="684497922891" /> <value unit="mEq/L" xsi:type="PQ " value="4.4" /> <referenceRange> <observationRange> <text>3.6-5.1</text> </observationRange> </ referenceRange> </observation> </component> <component> <observation moodCode="EVN" classCode="OBS"> <templateId root= "10.29.840.1.615342.10..22.4.2" /> <id nullFlavor="NA" /> < code codeSystem="local" code="TP" displayName="Protein" /> <statusCode code="completed" /> <effectiveTime value="718115558774" /> < value unit="g/dL" xsi:type="PQ" value="6.2" /> <referenceRange> <observationRange> <text>6.1-7.9</text> </ observationRange> </referenceRange> </observation> </ component> <component> <observation moodCode="EVN" classCode="OBS"> <templateId root="840.1.521716.10...4.2" /> <id nullFlavor="NA" /> <code codeSystem="local" code="NA" displayName= "Sodium" /> <statusCode code="completed" /> <effectiveTime value="055351350498" /> <value unit="mEq/L" xsi:type="PQ" value="137" / > <referenceRange> <observationRange> <text>136 -144</text> </observationRange> </referenceRange> </ observation> </component> </organizer> </entry> <entry> <organizer moodCode="EVN" classCode="BATTERY"> <templateId root= "10.29.840.1.262142.10.20.22.4.1" /> <id nullFlavor="NA" /> <code codeSystem="local" code="GFR" displayName="eGFR" /> <statusCode code= "completed" /> <component> <observation moodCode="EVN" classCode= "OBS"> <templateId root="16.840.1.617243.10..4.2" /> < id nullFlavor="NA" /> <code codeSystem="local" code="GFR" displayName= "eGFR" /> <statusCode code="completed" /> <effectiveTime value ="334160161372" /> <value unit="mL/min" xsi:type="PQ" value=">60" / > <referenceRange> <observationRange> <text>&gt ;60</text> </observationRange> </referenceRange> </ observation> </component> </organizer> </entry> <entry> <organizer moodCode="EVN" classCode="BATTERY"> <templateId root= "216.840.1.744467.07.02.22.4.1" /> <id nullFlavor="NA" /> <code codeSystem="local" code="UMIC" displayName="Urine Microscopic" /> < statusCode code="completed" /> <component> <observation moodCode= "EVN" classCode="OBS"> <templateId root="216.840.1.139553.10..22.4.2 " /> <id nullFlavor="NA" /> <code codeSystem="local" code= "UBAC" displayName="Bacteria" /> <statusCode code="completed" /> <effectiveTime value="371132629938" /> <value unit="NA" xsi:type= "PQ" value="None Seen" /> <referenceRange> <observationRange > <text /> </observationRange> </referenceRange > </observation> </component> <component> <observation moodCode="EVN" classCode="OBS"> <templateId root= "216.840.1.059472....4.2" /> <id nullFlavor="NA" /> < code codeSystem="local" code="UEPI" displayName="Epithelial Cells" /> < statusCode code="completed" /> <effectiveTime value="" /> <value unit="/HPF" xsi:type="PQ" value="0" /> <referenceRange > <observationRange> <text /> </ observationRange> </referenceRange> </observation> </ component> <component> <observation moodCode="EVN" classCode="OBS"> <templateId root="216.840.1.333818.07.02.22.4.2" /> <id nullFlavor="NA" /> <code codeSystem="local" code="URBC" displayName= "RBC, Urine" /> <statusCode code="completed" /> < effectiveTime value="" /> <value unit="/HPF" xsi:type="PQ" value="0" /> <referenceRange> <observationRange> <text>0-2</text> </observationRange> </referenceRange> </observation> </component> <component> <observation moodCode="EVN" classCode="OBS"> <templateId root= "10.29.840.1.787457...4.2" /> <id nullFlavor="NA" /> < code codeSystem="local" code="UMUC" displayName="Urine Mucus" /> < statusCode code="completed" /> <effectiveTime value="" /> <value unit="NA" xsi:type="PQ" value="Present" /> < referenceRange> <observationRange> <text /> < /observationRange> </referenceRange> </observation> </ component> <component> <observation moodCode="EVN" classCode="OBS"> <templateId root="10.29.840.1.518085.10.22.4.2" /> <id nullFlavor="NA" /> <code codeSystem="local" code="UWBC" displayName= "WBC, Urine" /> <statusCode code="completed" /> < effectiveTime value="" /> <value unit="/HPF" xsi:type="PQ" value="0" /> <referenceRange> <observationRange> <text>0-4</text> </observationRange> </referenceRange> </observation> </component> </organizer> </entry> <entry> < organizer moodCode="EVN" classCode="BATTERY"> <templateId root= "10.29.840.1.981030.10.4.1" /> <id nullFlavor="NA" /> <code codeSystem="local" code="UA" displayName="Urinalysis with reflex microscopic" / > <statusCode code="completed" /> <component> <observation moodCode="EVN" classCode="OBS"> <templateId root= "10.29.840.1.508302...4.2" /> <id nullFlavor="NA" /> < code codeSystem="local" code="UAPP" displayName="Appearance" /> < statusCode code="completed" /> <effectiveTime value="" /> <value unit="NA" xsi:type="PQ" value="Sl Cloudy" /> < referenceRange> <observationRange> <text /> < /observationRange> </referenceRange> </observation> </ component> <component> <observation moodCode="EVN" classCode="OBS"> <templateId root="16.840.1.441926.10.22.4.2" /> <id nullFlavor="NA" /> <code codeSystem="local" code="UBIL" displayName= "Bilirubin" /> <statusCode code="completed" /> <effectiveTime value="" /> <value unit="NA" xsi:type="PQ" value="Negative " /> <referenceRange> <observationRange> <text> Negative</text> </observationRange> </referenceRange> </observation> </component> <component> <observation moodCode ="EVN" classCode="OBS"> <templateId root= "10.29.840.1.081821.07.02.22.4.2" /> <id nullFlavor="NA" /> < code codeSystem="local" code="UBLD" displayName="Blood" /> <statusCode code="completed" /> <effectiveTime value="" /> < value unit="NA" xsi:type="PQ" value="Negative" /> <referenceRange> <observationRange> <text>Negative</text> </ observationRange> </referenceRange> </observation> </ component> <component> <observation moodCode="EVN" classCode="OBS"> <templateId root="10.29.840.1.703569.07.02.22.4.2" /> <id nullFlavor="NA" /> <code codeSystem="local" code="UCOLR" displayName= "Color" /> <statusCode code="completed" /> <effectiveTime value="" /> <value unit="NA" xsi:type="PQ" value="Yellow" / > <referenceRange> <observationRange> <text /> </observationRange> </referenceRange> </observation > </component> <component> <observation moodCode="EVN" classCode="OBS"> <templateId root="10.29.840.1.194751.22.4.2" /> <id nullFlavor="NA" /> <code codeSystem="local" code="UGLU" displayName="Glucose, Urine" /> <statusCode code="completed" /> <effectiveTime value="" /> <value unit="" xsi:type="PQ" value="Negative" /> <referenceRange> <observationRange> <text>Negative</text> </observationRange> </ referenceRange> </observation> </component> <component> <observation moodCode="EVN" classCode="OBS"> <templateId root= "16.840.1.008581.10..4.2" /> <id nullFlavor="NA" /> < code codeSystem="local" code="UKET" displayName="Ketones" /> < statusCode code="completed" /> <effectiveTime value="" /> <value unit="" xsi:type="PQ" value="Negative" /> < referenceRange> <observationRange> <text>Negative</text > </observationRange> </referenceRange> </observation > </component> <component> <observation moodCode="EVN" classCode="OBS"> <templateId root="16.840.1.722650.10...4.2" /> <id nullFlavor="NA" /> <code codeSystem="local" code="ULEU" displayName="Leukocyte Esterase" /> <statusCode code="completed" /> <effectiveTime value="" /> <value unit="NA" xsi:type ="PQ" value="Trace" /> <interpretationCode codeSystem="local" code="*" /> <referenceRange> <observationRange> <text> Negative</text> </observationRange> </referenceRange> </observation> </component> <component> <observation moodCode ="EVN" classCode="OBS"> <templateId root= "16.840.1.843312.07.02.22.4.2" /> <id nullFlavor="NA" /> < code codeSystem="local" code="UNIT" displayName="Nitrites" /> < statusCode code="completed" /> <effectiveTime value="" /> <value unit="NA" xsi:type="PQ" value="Negative" /> < referenceRange> <observationRange> <text>Negative</text > </observationRange> </referenceRange> </observation > </component> <component> <observation moodCode="EVN" classCode="OBS"> <templateId root="216.840.1.448776.07.02.22.4.2" /> <id nullFlavor="NA" /> <code codeSystem="local" code="UPH" displayName="pH" /> <statusCode code="completed" /> < effectiveTime value="" /> <value unit="NA" xsi:type="PQ" value="6.0" /> <referenceRange> <observationRange> <text>5.0-8.0</text> </observationRange> </ referenceRange> </observation> </component> <component> <observation moodCode="EVN" classCode="OBS"> <templateId root= "216.840.1.327956.07.02.22.4.2" /> <id nullFlavor="NA" /> < code codeSystem="local" code="UPRO" displayName="Protein" /> < statusCode code="completed" /> <effectiveTime value="" /> <value unit="NA" xsi:type="PQ" value="Negative" /> < referenceRange> <observationRange> <text>Negative</text > </observationRange> </referenceRange> </observation > </component> <component> <observation moodCode="EVN" classCode="OBS"> <templateId root="2.16.840.1.232909.10..22.4.2" /> <id nullFlavor="NA" /> <code codeSystem="local" code="USPG" displayName="Specific [place]" /> <statusCode code="completed" /> <effectiveTime value="" /> <value unit="NA" xsi:type= "PQ" value="1.020" /> <referenceRange> <observationRange> <text>1.003-1.030</text> </observationRange> </ referenceRange> </observation> </component> <component> <observation moodCode="EVN" classCode="OBS"> <templateId root= "2.16.840.1.117315.10..4.2" /> <id nullFlavor="NA" /> < code codeSystem="local" code="UTYP" displayName="UA Collection type" /> <statusCode code="completed" /> <effectiveTime value="" / > <value unit="NA" xsi:type="PQ" value="Clean Catch" /> < referenceRange> <observationRange> <text /> < /observationRange> </referenceRange> </observation> </ component> <component> <observation moodCode="EVN" classCode="OBS"> <templateId root="2.16.840.1.192493.10.22.4.2" /> <id nullFlavor="NA" /> <code codeSystem="local" code="UURO" displayName= "Urobilinogen" /> <statusCode code="completed" /> < effectiveTime value="" /> <value unit="mg/dL" xsi:type="PQ " value="Negative" /> <referenceRange> <observationRange> <text><1.0</text> </observationRange> </ referenceRange> </observation> </component> </organizer> </entry > <entry> <organizer moodCode="EVN" classCode="BATTERY"> <templateId root="10.29.840.1.043148.07.02.22.4.1" /> <id nullFlavor="NA" /> <code codeSystem="local" code="VALP" displayName="Valproic Acid" /> <statusCode code="completed" /> <component> <observation moodCode="EVN" classCode="OBS"> <templateId root="840.1.472727...4.2" /> <id nullFlavor="NA" /> <code codeSystem="local" code="VALP" displayName="Valproic Acid" /> <statusCode code="completed" /> <effectiveTime value="469905586505" /> <value unit="ug/mL" xsi:type= "PQ" value="51" /> <referenceRange> <observationRange> <text>50-125</text> </observationRange> </ referenceRange> </observation> </component> </organizer> </entry > <entry> <organizer moodCode="EVN" classCode="BATTERY"> <templateId root="10.29.840.1.807492.07.02.22.4.1" /> <id nullFlavor="NA" /> <code codeSystem="local" code="AMMOV" displayName="Ammonia" /> <statusCode code= "completed" /> <component> <observation moodCode="EVN" classCode= "OBS"> <templateId root="10.29.840.1.080738.07.02.22.4.2" /> < id nullFlavor="NA" /> <code codeSystem="local" code="AMMOV" displayName ="Ammonia" /> <statusCode code="completed" /> <effectiveTime value="237953207788" /> <value unit="umol/L" xsi:type="PQ" value="32" / > <referenceRange> <observationRange> <text>9- 35</text> </observationRange> </referenceRange> </ observation> </component> </organizer> </entry> <entry> <organizer moodCode="EVN" classCode="BATTERY"> <templateId root= "16.840.1.499997.10..22.4.1" /> <id nullFlavor="NA" /> <code codeSystem="local" code="VALP" displayName="Valproic Acid" /> <statusCode code="completed" /> <component> <observation moodCode="EVN" classCode="OBS"> <templateId root="216.840.1.509615.10..22.4.2" /> <id nullFlavor="NA" /> <code codeSystem="local" code="VALP" displayName="Valproic Acid" /> <statusCode code="completed" /> <effectiveTime value="338907128139" /> <value unit="ug/mL" xsi:type= "PQ" value="71" /> <referenceRange> <observationRange> <text>50-125</text> </observationRange> </ referenceRange> </observation> </component> </organizer> </entry > <entry> <organizer moodCode="EVN" classCode="BATTERY"> <templateId root="16.840.1.538710.10..22.4.1" /> <id nullFlavor="NA" /> <code codeSystem="local" code="B12" displayName="Vitamin B12" /> <statusCode code ="completed" /> <component> <observation moodCode="EVN" classCode= "OBS"> <templateId root="10.29.840.1.111870.10..22.4.2" /> < id nullFlavor="NA" /> <code codeSystem="local" code="B12" displayName= "Vitamin B12" /> <statusCode code="completed" /> < effectiveTime value="497603986288" /> <value unit="pg/mL" xsi:type="PQ " value="449" /> <referenceRange> <observationRange> <text>213-816</text> </observationRange> </ referenceRange> </observation> </component> </organizer> </entry > <entry> <organizer moodCode="EVN" classCode="BATTERY"> <templateId root="10.29.840.1.022193.10...4.1" /> <id nullFlavor="NA" /> <code codeSystem="local" code="UA" displayName="Urinalysis with reflex microscopic" / > <statusCode code="completed" /> <component> <observation moodCode="EVN" classCode="OBS"> <templateId root= "10.29.840.1.720814.10...4.2" /> <id nullFlavor="NA" /> < code codeSystem="local" code="UAPP" displayName="Appearance" /> < statusCode code="completed" /> <effectiveTime value="751074158366" /> <value unit="NA" xsi:type="PQ" value="Clear" /> < referenceRange> <observationRange> <text /> < /observationRange> </referenceRange> </observation> </ component> <component> <observation moodCode="EVN" classCode="OBS"> <templateId root="10.29.840.1.604512.10..22.4.2" /> <id nullFlavor="NA" /> <code codeSystem="local" code="UBIL" displayName= "Bilirubin" /> <statusCode code="completed" /> <effectiveTime value="" /> <value unit="NA" xsi:type="PQ" value="Negative " /> <referenceRange> <observationRange> <text> Negative</text> </observationRange> </referenceRange> </observation> </component> <component> <observation moodCode ="EVN" classCode="OBS"> <templateId root= "10.29.840.1.027125.07.02.22.4.2" /> <id nullFlavor="NA" /> < code codeSystem="local" code="UBLD" displayName="Blood" /> <statusCode code="completed" /> <effectiveTime value="" /> < value unit="NA" xsi:type="PQ" value="Negative" /> <referenceRange> <observationRange> <text>Negative</text> </ observationRange> </referenceRange> </observation> </ component> <component> <observation moodCode="EVN" classCode="OBS"> <templateId root="840.1.407021.07.02.22.4.2" /> <id nullFlavor="NA" /> <code codeSystem="local" code="UCOLR" displayName= "Color" /> <statusCode code="completed" /> <effectiveTime value="" /> <value unit="NA" xsi:type="PQ" value="Yellow" / > <referenceRange> <observationRange> <text /> </observationRange> </referenceRange> </observation > </component> <component> <observation moodCode="EVN" classCode="OBS"> <templateId root="10.29.840.1.664708.07.02.22.4.2" /> <id nullFlavor="NA" /> <code codeSystem="local" code="UGLU" displayName="Glucose, Urine" /> <statusCode code="completed" /> <effectiveTime value="" /> <value unit="" xsi:type="PQ" value="Negative" /> <referenceRange> <observationRange> <text>Negative</text> </observationRange> </ referenceRange> </observation> </component> <component> <observation moodCode="EVN" classCode="OBS"> <templateId root= "840.1.495104.10..22.4.2" /> <id nullFlavor="NA" /> < code codeSystem="local" code="UKET" displayName="Ketones" /> < statusCode code="completed" /> <effectiveTime value="" /> <value unit="" xsi:type="PQ" value="Trace" /> < interpretationCode codeSystem="local" code="*" /> <referenceRange> <observationRange> <text>Negative</text> </ observationRange> </referenceRange> </observation> </ component> <component> <observation moodCode="EVN" classCode="OBS"> <templateId root="840.1.191746.10..22.4.2" /> <id nullFlavor="NA" /> <code codeSystem="local" code="ULEU" displayName= "Leukocyte Esterase" /> <statusCode code="completed" /> < effectiveTime value="" /> <value unit="NA" xsi:type="PQ" value="Negative" /> <referenceRange> <observationRange> <text>Negative</text> </observationRange> </ referenceRange> </observation> </component> <component> <observation moodCode="EVN" classCode="OBS"> <templateId root= "840.1.022583.10.4.2" /> <id nullFlavor="NA" /> < code codeSystem="local" code="UNIT" displayName="Nitrites" /> < statusCode code="completed" /> <effectiveTime value="" /> <value unit="NA" xsi:type="PQ" value="Negative" /> < referenceRange> <observationRange> <text>Negative</text > </observationRange> </referenceRange> </observation > </component> <component> <observation moodCode="EVN" classCode="OBS"> <templateId root="216.840.1.436871.07.02.22.4.2" /> <id nullFlavor="NA" /> <code codeSystem="local" code="UPH" displayName="pH" /> <statusCode code="completed" /> < effectiveTime value="" /> <value unit="NA" xsi:type="PQ" value="6.0" /> <referenceRange> <observationRange> <text>5.0-8.0</text> </observationRange> </ referenceRange> </observation> </component> <component> <observation moodCode="EVN" classCode="OBS"> <templateId root= "16.840.1.482360.07.02.22.4.2" /> <id nullFlavor="NA" /> < code codeSystem="local" code="UPRO" displayName="Protein" /> < statusCode code="completed" /> <effectiveTime value="" /> <value unit="NA" xsi:type="PQ" value="Negative" /> < referenceRange> <observationRange> <text>Negative</text > </observationRange> </referenceRange> </observation > </component> <component> <observation moodCode="EVN" classCode="OBS"> <templateId root="16.840.1.473636.10..22.4.2" /> <id nullFlavor="NA" /> <code codeSystem="local" code="USPG" displayName="Specific [place]" /> <statusCode code="completed" /> <effectiveTime value="705799314322" /> <value unit="NA" xsi:type= "PQ" value="1.030" /> <referenceRange> <observationRange> <text>1.003-1.030</text> </observationRange> </ referenceRange> </observation> </component> <component> <observation moodCode="EVN" classCode="OBS"> <templateId root= "16.840.1.555932.10..4.2" /> <id nullFlavor="NA" /> < code codeSystem="local" code="UTYP" displayName="UA Collection type" /> <statusCode code="completed" /> <effectiveTime value="057263422020" / > <value unit="NA" xsi:type="PQ" value="Clean Catch" /> < referenceRange> <observationRange> <text /> < /observationRange> </referenceRange> </observation> </ component> <component> <observation moodCode="EVN" classCode="OBS"> <templateId root="16.840.1.532514.10..4.2" /> <id nullFlavor="NA" /> <code codeSystem="local" code="UURO" displayName= "Urobilinogen" /> <statusCode code="completed" /> < effectiveTime value="042610327284" /> <value unit="mg/dL" xsi:type="PQ " value="Negative" /> <referenceRange> <observationRange> <text><1.0</text> </observationRange> </ referenceRange> </observation> </component> </organizer> </entry > <entry> <organizer moodCode="EVN" classCode="BATTERY"> <templateId root="216.840.1.407491.10..22.4.1" /> <id nullFlavor="NA" /> <code codeSystem="local" code="CBCND" displayName="CBC With Platelet No Differential" /> <statusCode code="completed" /> <component> <observation moodCode="EVN" classCode="OBS"> <templateId root= "216.840.1.044909.10..4.2" /> <id nullFlavor="NA" /> < code codeSystem="local" code="HCT" displayName="HCT" /> <statusCode code="completed" /> <effectiveTime value="" /> < value unit="%" xsi:type="PQ" value="43.4" /> <referenceRange> <observationRange> <text>42.0-52.0</text> </ observationRange> </referenceRange> </observation> </ component> <component> <observation moodCode="EVN" classCode="OBS"> <templateId root="216.840.1.458399.10...4.2" /> <id nullFlavor="NA" /> <code codeSystem="local" code="HGB" displayName="HGB " /> <statusCode code="completed" /> <effectiveTime value= "" /> <value unit="g/dL" xsi:type="PQ" value="14.2" /> <referenceRange> <observationRange> <text>14.0- 18.0</text> </observationRange> </referenceRange> </ observation> </component> <component> <observation moodCode= "EVN" classCode="OBS"> <templateId root="16.840.1.407092.10.20.22.4.2 " /> <id nullFlavor="NA" /> <code codeSystem="local" code="MCH " displayName="MCH" /> <statusCode code="completed" /> < effectiveTime value="" /> <value unit="pg" xsi:type="PQ" value="28.3" /> <referenceRange> <observationRange> <text>27.0-32.0</text> </observationRange> </ referenceRange> </observation> </component> <component> <observation moodCode="EVN" classCode="OBS"> <templateId root= "10.29.840.1.366825.10.22.4.2" /> <id nullFlavor="NA" /> < code codeSystem="local" code="MCHC" displayName="MCHC" /> <statusCode code="completed" /> <effectiveTime value="" /> < value unit="g/dL" xsi:type="PQ" value="32.7" /> <referenceRange> <observationRange> <text>32.0-36.0</text> </ observationRange> </referenceRange> </observation> </ component> <component> <observation moodCode="EVN" classCode="OBS"> <templateId root="10.29.840.1.513238.10.20.22.4.2" /> <id nullFlavor="NA" /> <code codeSystem="local" code="MCV" displayName="MCV " /> <statusCode code="completed" /> <effectiveTime value= "[id number]" /> <value unit="fL" xsi:type="PQ" value="86.6" /> <referenceRange> <observationRange> <text>82.0-99.0< /text> </observationRange> </referenceRange> </ observation> </component> <component> <observation moodCode= "EVN" classCode="OBS"> <templateId root="16.840.1.223130.07.02.22.4.2 " /> <id nullFlavor="NA" /> <code codeSystem="local" code="MPV " displayName="MPV" /> <statusCode code="completed" /> < effectiveTime value="" /> <value unit="fL" xsi:type="PQ" value="9.6" /> <referenceRange> <observationRange> <text>9.4-12.3</text> </observationRange> </ referenceRange> </observation> </component> <component> <observation moodCode="EVN" classCode="OBS"> <templateId root= "10.29.840.1.395171.07.02.22.4.2" /> <id nullFlavor="NA" /> < code codeSystem="local" code="PLT" displayName="Platelet Count" /> < statusCode code="completed" /> <effectiveTime value="" /> <value unit="K/uL" xsi:type="PQ" value="213" /> < referenceRange> <observationRange> <text>150-400</text> </observationRange> </referenceRange> </observation > </component> <component> <observation moodCode="EVN" classCode="OBS"> <templateId root="10.29.840.1.775170.07.02.22.4.2" /> <id nullFlavor="NA" /> <code codeSystem="local" code="RBC" displayName="RBC" /> <statusCode code="completed" /> < effectiveTime value="" /> <value unit="10*6/uL" xsi:type= "PQ" value="5.01" /> <referenceRange> <observationRange> <text>4.60-6.20</text> </observationRange> </ referenceRange> </observation> </component> <component> <observation moodCode="EVN" classCode="OBS"> <templateId root= "216.840.1.997082.10..22.4.2" /> <id nullFlavor="NA" /> < code codeSystem="local" code="RDW" displayName="RDW" /> <statusCode code="completed" /> <effectiveTime value="[id number]" /> < value unit="%" xsi:type="PQ" value="14.2" /> <referenceRange> <observationRange> <text>11.5-14.5</text> </ observationRange> </referenceRange> </observation> </ component> <component> <observation moodCode="EVN" classCode="OBS"> <templateId root="16.840.1.861406.10...4.2" /> <id nullFlavor="NA" /> <code codeSystem="local" code="WBCIR" displayName= "WBC" /> <statusCode code="completed" /> <effectiveTime value= "[id number]" /> <value unit="K/uL" xsi:type="PQ" value="7.0" /> <referenceRange> <observationRange> <text>4.8-10.8< /text> </observationRange> </referenceRange> </ observation> </component> </organizer> </entry> <entry> <organizer moodCode="EVN" classCode="BATTERY"> <templateId root= "16.840.1.585952.10.20.22.4.1" /> <id nullFlavor="NA" /> <code codeSystem="local" code="AMMOV" displayName="Ammonia" /> <statusCode code= "completed" /> <component> <observation moodCode="EVN" classCode= "OBS"> <templateId root="16.840.1.332828.10..22.4.2" /> < id nullFlavor="NA" /> <code codeSystem="local" code="AMMOV" displayName ="Ammonia" /> <statusCode code="completed" /> <effectiveTime value="[id number]" /> <value unit="umol/L" xsi:type="PQ" value="12" / > <referenceRange> <observationRange> <text>9- 35</text> </observationRange> </referenceRange> </ observation> </component> </organizer> </entry> <entry> <organizer moodCode="EVN" classCode="BATTERY"> <templateId root= "16.840.1.257090.10..4.1" /> <id nullFlavor="NA" /> <code codeSystem="local" code="CMP" displayName="Comprehensive Metabolic Panel (CMP)" /> <statusCode code="completed" /> <component> <observation moodCode="EVN" classCode="OBS"> <templateId root= "16.840.1.454192.10..22.4.2" /> <id nullFlavor="NA" /> < code codeSystem="local" code="ALB" displayName="Albumin" /> < statusCode code="completed" /> <effectiveTime value="" /> <value unit="g/dL" xsi:type="PQ" value="3.2" /> < interpretationCode codeSystem="local" code="*" /> <referenceRange> <observationRange> <text>3.5-4.8</text> </ observationRange> </referenceRange> </observation> </ component> <component> <observation moodCode="EVN" classCode="OBS"> <templateId root="216.840.1.455264.10..4.2" /> <id nullFlavor="NA" /> <code codeSystem="local" code="ALP" displayName= "Alkaline Phosphatase" /> <statusCode code="completed" /> < effectiveTime value="" /> <value unit="U/L" xsi:type="PQ" value="54" /> <referenceRange> <observationRange> <text>26-104</text> </observationRange> </referenceRange > </observation> </component> <component> <observation moodCode="EVN" classCode="OBS"> <templateId root= "10.29.840.1.270660.07.02.22.4.2" /> <id nullFlavor="NA" /> < code codeSystem="local" code="ALT" displayName="ALT (SGPT)" /> < statusCode code="completed" /> <effectiveTime value="" /> <value unit="U/L" xsi:type="PQ" value="20" /> <referenceRange > <observationRange> <text>17-63</text> </ observationRange> </referenceRange> </observation> </ component> <component> <observation moodCode="EVN" classCode="OBS"> <templateId root="10.29.840.1.765608.10.22.4.2" /> <id nullFlavor="NA" /> <code codeSystem="local" code="AGAP" displayName= "Anion Gap" /> <statusCode code="completed" /> <effectiveTime value="" /> <value unit="mEq/L" xsi:type="PQ" value="8" /> <referenceRange> <observationRange> <text>3-20 </text> </observationRange> </referenceRange> </ observation> </component> <component> <observation moodCode= "EVN" classCode="OBS"> <templateId root="16.840.1.689119.10..4.2 " /> <id nullFlavor="NA" /> <code codeSystem="local" code="AST " displayName="AST (SGOT)" /> <statusCode code="completed" /> <effectiveTime value="" /> <value unit="U/L" xsi:type="PQ" value="18" /> <referenceRange> <observationRange> <text>15-41</text> </observationRange> </referenceRange > </observation> </component> <component> <observation moodCode="EVN" classCode="OBS"> <templateId root= "10.29.840.1.616321.07.02.22.4.2" /> <id nullFlavor="NA" /> < code codeSystem="local" code="BILIT" displayName="Bilirubin Total" /> < statusCode code="completed" /> <effectiveTime value="" /> <value unit="mg/dL" xsi:type="PQ" value="0.3" /> < referenceRange> <observationRange> <text>0.2-1.2</text> </observationRange> </referenceRange> </observation > </component> <component> <observation moodCode="EVN" classCode="OBS"> <templateId root="10.29.840.1.748465.10..4.2" /> <id nullFlavor="NA" /> <code codeSystem="local" code="BUN" displayName="BUN" /> <statusCode code="completed" /> < effectiveTime value="" /> <value unit="mg/dL" xsi:type="PQ " value="27" /> <interpretationCode codeSystem="local" code="*" /> <referenceRange> <observationRange> <text>4-20</ text> </observationRange> </referenceRange> </ observation> </component> <component> <observation moodCode= "EVN" classCode="OBS"> <templateId root="10.29.840.1.103887.22.4.2 " /> <id nullFlavor="NA" /> <code codeSystem="local" code="CA " displayName="Calcium" /> <statusCode code="completed" /> < effectiveTime value="" /> <value unit="mg/dL" xsi:type="PQ " value="9.5" /> <referenceRange> <observationRange> <text>8.6-10.0</text> </observationRange> </ referenceRange> </observation> </component> <component> <observation moodCode="EVN" classCode="OBS"> <templateId root= "840.1.465322.07.02.22.4.2" /> <id nullFlavor="NA" /> < code codeSystem="local" code="CL" displayName="Chloride" /> < statusCode code="completed" /> <effectiveTime value="" /> <value unit="mEq/L" xsi:type="PQ" value="104" /> < referenceRange> <observationRange> <text>99-109</text> </observationRange> </referenceRange> </observation> </component> <component> <observation moodCode="EVN" classCode ="OBS"> <templateId root="10.29.840.1.748286.1022.4.2" /> < id nullFlavor="NA" /> <code codeSystem="local" code="CO2" displayName= "CO2" /> <statusCode code="completed" /> <effectiveTime value= "" /> <value unit="mEq/L" xsi:type="PQ" value="28" /> <referenceRange> <observationRange> <text>22-32</ text> </observationRange> </referenceRange> </ observation> </component> <component> <observation moodCode= "EVN" classCode="OBS"> <templateId root="16.840.1.698061.10..22.4.2 " /> <id nullFlavor="NA" /> <code codeSystem="local" code= "CREAT" displayName="Creatinine" /> <statusCode code="completed" /> <effectiveTime value="" /> <value unit="mg/dL" xsi: type="PQ" value="1.02" /> <referenceRange> <observationRange > <text>0.64-1.27</text> </observationRange> </ referenceRange> </observation> </component> <component> <observation moodCode="EVN" classCode="OBS"> <templateId root= "16.840.1.749368.10..22.4.2" /> <id nullFlavor="NA" /> < code codeSystem="local" code="GLOB" displayName="Globulin" /> < statusCode code="completed" /> <effectiveTime value="" /> <value unit="g/dL" xsi:type="PQ" value="3.4" /> < referenceRange> <observationRange> <text>1.9-4.3</text> </observationRange> </referenceRange> </observation > </component> <component> <observation moodCode="EVN" classCode="OBS"> <templateId root="2.16.840.1.469763.10.20.22.4.2" /> <id nullFlavor="NA" /> <code codeSystem="local" code="GLU" displayName="Glucose" /> <statusCode code="completed" /> < effectiveTime value="" /> <value unit="mg/dL" xsi:type="PQ " value="105" /> <interpretationCode codeSystem="local" code="*" /> <referenceRange> <observationRange> <text>70-100< /text> </observationRange> </referenceRange> </ observation> </component> <component> <observation moodCode= "EVN" classCode="OBS"> <templateId root="10.29.840.1.142689..22.4.2 " /> <id nullFlavor="NA" /> <code codeSystem="local" code="K" displayName="Potassium" /> <statusCode code="completed" /> < effectiveTime value="" /> <value unit="mEq/L" xsi:type="PQ " value="3.9" /> <referenceRange> <observationRange> <text>3.6-5.1</text> </observationRange> </ referenceRange> </observation> </component> <component> <observation moodCode="EVN" classCode="OBS"> <templateId root= "10.29.840.1.311264.10.20.22.4.2" /> <id nullFlavor="NA" /> < code codeSystem="local" code="TP" displayName="Protein" /> <statusCode code="completed" /> <effectiveTime value="" /> < value unit="g/dL" xsi:type="PQ" value="6.6" /> <referenceRange> <observationRange> <text>6.1-7.9</text> </ observationRange> </referenceRange> </observation> </ component> <component> <observation moodCode="EVN" classCode="OBS"> <templateId root="2.16.840.1.878361.22.4.2" /> <id nullFlavor="NA" /> <code codeSystem="local" code="NA" displayName= "Sodium" /> <statusCode code="completed" /> <effectiveTime value="" /> <value unit="mEq/L" xsi:type="PQ" value="140" / > <referenceRange> <observationRange> <text>136 -144</text> </observationRange> </referenceRange> </ observation> </component> </organizer> </entry> <entry> <organizer moodCode="EVN" classCode="BATTERY"> <templateId root= "2.16.840.1.669160.10..22.4.1" /> <id nullFlavor="NA" /> <code codeSystem="local" code="GFR" displayName="eGFR" /> <statusCode code= "completed" /> <component> <observation moodCode="EVN" classCode= "OBS"> <templateId root="2.16.840.1.350897.10..22.4.2" /> < id nullFlavor="NA" /> <code codeSystem="local" code="GFR" displayName= "eGFR" /> <statusCode code="completed" /> <effectiveTime value ="" /> <value unit="mL/min" xsi:type="PQ" value=">60" / > <referenceRange> <observationRange> <text>&gt ;60</text> </observationRange> </referenceRange> </ observation> </component> </organizer> </entry> <entry> <organizer moodCode="EVN" classCode="BATTERY"> <templateId root= "16.840.1.584634.10..22.4.1" /> <id nullFlavor="NA" /> <code codeSystem="local" code="CBCND" displayName="CBC With Platelet No Differential" /> <statusCode code="completed" /> <component> <observation moodCode="EVN" classCode="OBS"> <templateId root= "10.29.840.1.972341.07.02.22.4.2" /> <id nullFlavor="NA" /> < code codeSystem="local" code="HCT" displayName="HCT" /> <statusCode code="completed" /> <effectiveTime value="887344752385" /> < value unit="%" xsi:type="PQ" value="42.5" /> <referenceRange> <observationRange> <text>42.0-52.0</text> </ observationRange> </referenceRange> </observation> </ component> <component> <observation moodCode="EVN" classCode="OBS"> <templateId root="16.840.1.979419.07.02.22.4.2" /> <id nullFlavor="NA" /> <code codeSystem="local" code="HGB" displayName="HGB " /> <statusCode code="completed" /> <effectiveTime value= "833319464282" /> <value unit="g/dL" xsi:type="PQ" value="13.8" /> <interpretationCode codeSystem="local" code="*" /> < referenceRange> <observationRange> <text>14.0-18.0</text > </observationRange> </referenceRange> </observation > </component> <component> <observation moodCode="EVN" classCode="OBS"> <templateId root="10.29.840.1.851265.22.4.2" /> <id nullFlavor="NA" /> <code codeSystem="local" code="MCH" displayName="MCH" /> <statusCode code="completed" /> < effectiveTime value="" /> <value unit="pg" xsi:type="PQ" value="28.3" /> <referenceRange> <observationRange> <text>27.0-32.0</text> </observationRange> </ referenceRange> </observation> </component> <component> <observation moodCode="EVN" classCode="OBS"> <templateId root= "216.840.1.772479.07.02.22.4.2" /> <id nullFlavor="NA" /> < code codeSystem="local" code="MCHC" displayName="MCHC" /> <statusCode code="completed" /> <effectiveTime value="" /> < value unit="g/dL" xsi:type="PQ" value="32.5" /> <referenceRange> <observationRange> <text>32.0-36.0</text> </ observationRange> </referenceRange> </observation> </ component> <component> <observation moodCode="EVN" classCode="OBS"> <templateId root="216.840.1.754922.22.4.2" /> <id nullFlavor="NA" /> <code codeSystem="local" code="MCV" displayName="MCV " /> <statusCode code="completed" /> <effectiveTime value= "" /> <value unit="fL" xsi:type="PQ" value="87.1" /> <referenceRange> <observationRange> <text>82.0-99.0< /text> </observationRange> </referenceRange> </ observation> </component> <component> <observation moodCode= "EVN" classCode="OBS"> <templateId root="10.29.840.1.191432.1022.4.2 " /> <id nullFlavor="NA" /> <code codeSystem="local" code="MPV " displayName="MPV" /> <statusCode code="completed" /> < effectiveTime value="" /> <value unit="fL" xsi:type="PQ" value="9.6" /> <referenceRange> <observationRange> <text>9.4-12.3</text> </observationRange> </ referenceRange> </observation> </component> <component> <observation moodCode="EVN" classCode="OBS"> <templateId root= "10.29.840.1.196622.07.02.22.4.2" /> <id nullFlavor="NA" /> < code codeSystem="local" code="PLT" displayName="Platelet Count" /> < statusCode code="completed" /> <effectiveTime value="" /> <value unit="K/uL" xsi:type="PQ" value="147" /> < interpretationCode codeSystem="local" code="*" /> <referenceRange> <observationRange> <text>150-400</text> </ observationRange> </referenceRange> </observation> </ component> <component> <observation moodCode="EVN" classCode="OBS"> <templateId root="10.29.840.1.842479.10.2022.4.2" /> <id nullFlavor="NA" /> <code codeSystem="local" code="RBC" displayName="RBC " /> <statusCode code="completed" /> <effectiveTime value= "" /> <value unit="10*6/uL" xsi:type="PQ" value="4.88" /> <referenceRange> <observationRange> <text>4.60- 6.20</text> </observationRange> </referenceRange> </ observation> </component> <component> <observation moodCode= "EVN" classCode="OBS"> <templateId root="16.840.1.346107.10.20.22.4.2 " /> <id nullFlavor="NA" /> <code codeSystem="local" code="RDW " displayName="RDW" /> <statusCode code="completed" /> < effectiveTime value="616809444127" /> <value unit="%" xsi:type="PQ " value="14.3" /> <referenceRange> <observationRange> <text>11.5-14.5</text> </observationRange> </ referenceRange> </observation> </component> <component> <observation moodCode="EVN" classCode="OBS"> <templateId root= "10.29.840.1.657534.10..22.4.2" /> <id nullFlavor="NA" /> < code codeSystem="local" code="WBCIR" displayName="WBC" /> <statusCode code="completed" /> <effectiveTime value="505744280749" /> < value unit="K/uL" xsi:type="PQ" value="8.5" /> <referenceRange> <observationRange> <text>4.8-10.8</text> </ observationRange> </referenceRange> </observation> </ component> </organizer> </entry> <entry> <organizer moodCode="EVN" classCode="BATTERY"> <templateId root="16.840.1.677582.10.20.22.4.1" /> <id nullFlavor="NA" /> <code codeSystem="local" code="BMP" displayName ="Basic Metabolic Panel (BMP)" /> <statusCode code="completed" /> < component> <observation moodCode="EVN" classCode="OBS"> < templateId root="16.840.1.835239.07.02.22.4.2" /> <id nullFlavor="NA " /> <code codeSystem="local" code="AGAP" displayName="Anion Gap" /> <statusCode code="completed" /> <effectiveTime value= "" /> <value unit="mEq/L" xsi:type="PQ" value="6" /> <referenceRange> <observationRange> <text>3-20</text > </observationRange> </referenceRange> </observation > </component> <component> <observation moodCode="EVN" classCode="OBS"> <templateId root="10.29.840.1.925192.07.02.22.4.2" /> <id nullFlavor="NA" /> <code codeSystem="local" code="BUN" displayName="BUN" /> <statusCode code="completed" /> < effectiveTime value="" /> <value unit="mg/dL" xsi:type="PQ " value="25" /> <interpretationCode codeSystem="local" code="*" /> <referenceRange> <observationRange> <text>4-20</ text> </observationRange> </referenceRange> </ observation> </component> <component> <observation moodCode= "EVN" classCode="OBS"> <templateId root="10.29.840.1.933815.07.02.22.4.2 " /> <id nullFlavor="NA" /> <code codeSystem="local" code="CA " displayName="Calcium" /> <statusCode code="completed" /> < effectiveTime value="" /> <value unit="mg/dL" xsi:type="PQ " value="9.3" /> <referenceRange> <observationRange> <text>8.6-10.0</text> </observationRange> </ referenceRange> </observation> </component> <component> <observation moodCode="EVN" classCode="OBS"> <templateId root= "10.29.840.1.146038..22.4.2" /> <id nullFlavor="NA" /> < code codeSystem="local" code="CL" displayName="Chloride" /> < statusCode code="completed" /> <effectiveTime value="686649968282" /> <value unit="mEq/L" xsi:type="PQ" value="101" /> < referenceRange> <observationRange> <text>99-109</text> </observationRange> </referenceRange> </observation> </component> <component> <observation moodCode="EVN" classCode ="OBS"> <templateId root="10.29.840.1.190685...4.2" /> < id nullFlavor="NA" /> <code codeSystem="local" code="CO2" displayName= "CO2" /> <statusCode code="completed" /> <effectiveTime value= "985036252660" /> <value unit="mEq/L" xsi:type="PQ" value="29" /> <referenceRange> <observationRange> <text>22-32</ text> </observationRange> </referenceRange> </ observation> </component> <component> <observation moodCode= "EVN" classCode="OBS"> <templateId root="10.29.840.1.052208.10.20.22.4.2 " /> <id nullFlavor="NA" /> <code codeSystem="local" code= "CREAT" displayName="Creatinine" /> <statusCode code="completed" /> <effectiveTime value="083443917521" /> <value unit="mg/dL" xsi: type="PQ" value="0.99" /> <referenceRange> <observationRange > <text>0.64-1.27</text> </observationRange> </ referenceRange> </observation> </component> <component> <observation moodCode="EVN" classCode="OBS"> <templateId root= "10.29.840.1.884812.10..4.2" /> <id nullFlavor="NA" /> < code codeSystem="local" code="GLU" displayName="Glucose" /> < statusCode code="completed" /> <effectiveTime value="510941501716" /> <value unit="mg/dL" xsi:type="PQ" value="91" /> < referenceRange> <observationRange> <text>70-100</text> </observationRange> </referenceRange> </observation> </component> <component> <observation moodCode="EVN" classCode ="OBS"> <templateId root="10.29.840.1.578964...22.4.2" /> < id nullFlavor="NA" /> <code codeSystem="local" code="K" displayName= "Potassium" /> <statusCode code="completed" /> <effectiveTime value="238053817772" /> <value unit="mEq/L" xsi:type="PQ" value="3.7" / > <referenceRange> <observationRange> <text>3.6 -5.1</text> </observationRange> </referenceRange> </ observation> </component> <component> <observation moodCode= "EVN" classCode="OBS"> <templateId root="10.29.840.1.459109.22.4.2 " /> <id nullFlavor="NA" /> <code codeSystem="local" code="NA " displayName="Sodium" /> <statusCode code="completed" /> < effectiveTime value="299319673814" /> <value unit="mEq/L" xsi:type="PQ " value="136" /> <referenceRange> <observationRange> <text>136-144</text> </observationRange> </ referenceRange> </observation> </component> </organizer> </entry > <entry> <organizer moodCode="EVN" classCode="BATTERY"> <templateId root="216.840.1.812389.10..4.1" /> <id nullFlavor="NA" /> <code codeSystem="local" code="VALP" displayName="Valproic Acid" /> <statusCode code="completed" /> <component> <observation moodCode="EVN" classCode="OBS"> <templateId root="216.840.1.946577.10..22.4.2" /> <id nullFlavor="NA" /> <code codeSystem="local" code="VALP" displayName="Valproic Acid" /> <statusCode code="completed" /> <effectiveTime value="826820628064" /> <value unit="ug/mL" xsi:type= "PQ" value="45" /> <interpretationCode codeSystem="local" code="*" /> <referenceRange> <observationRange> <text>50- 125</text> </observationRange> </referenceRange> </ observation> </component> </organizer> </entry> <entry> <organizer moodCode="EVN" classCode="BATTERY"> <templateId root= "216.840.1.319305.10..4.1" /> <id nullFlavor="NA" /> <code codeSystem="local" code="GFR" displayName="eGFR" /> <statusCode code= "completed" /> <component> <observation moodCode="EVN" classCode= "OBS"> <templateId root="16.840.1.884598.10.22.4.2" /> < id nullFlavor="NA" /> <code codeSystem="local" code="GFR" displayName= "eGFR" /> <statusCode code="completed" /> <effectiveTime value ="182486733575" /> <value unit="mL/min" xsi:type="PQ" value=">60" / > <referenceRange> <observationRange> <text>&gt ;60</text> </observationRange> </referenceRange> </ observation> </component> </organizer> </entry> <entry> <organizer moodCode="EVN" classCode="BATTERY"> <templateId root= "10.29.840.1.602823.10...4.1" /> <id nullFlavor="NA" /> <code codeSystem="local" code="VALP" displayName="Valproic Acid" /> <statusCode code="completed" /> <component> <observation moodCode="EVN" classCode="OBS"> <templateId root="10.29.840.1.242601.10.22.4.2" /> <id nullFlavor="NA" /> <code codeSystem="local" code="VALP" displayName="Valproic Acid" /> <statusCode code="completed" /> <effectiveTime value="191394592707" /> <value unit="ug/mL" xsi:type= "PQ" value="39" /> <interpretationCode codeSystem="local" code="*" /> <referenceRange> <observationRange> <text>50- 125</text> </observationRange> </referenceRange> </ observation> </component> </organizer> </entry> <entry> <organizer moodCode="EVN" classCode="BATTERY"> <templateId root= "10.29.840.1.982735.10.4.1" /> <id nullFlavor="NA" /> <code codeSystem="local" code="VALP" displayName="Valproic Acid" /> <statusCode code="completed" /> <component> <observation moodCode="EVN" classCode="OBS"> <templateId root="840.1.497418.07.02.22.4.2" /> <id nullFlavor="NA" /> <code codeSystem="local" code="VALP" displayName="Valproic Acid" /> <statusCode code="completed" /> <effectiveTime value="913704949271" /> <value unit="ug/mL" xsi:type= "PQ" value="21" /> <interpretationCode codeSystem="local" code="*" /> <referenceRange> <observationRange> <text>50- 125</text> </observationRange> </referenceRange> </ observation> </component> </organizer> </entry> <entry> <organizer moodCode="EVN" classCode="BATTERY"> <templateId root= "840.1.841733.07.02.22.4.1" /> <id nullFlavor="NA" /> <code codeSystem="local" code="GLUN" displayName="Glucose NPT" /> <statusCode code="completed" /> <component> <observation moodCode="EVN" classCode="OBS"> <templateId root="840.1.040331.07.02.22.4.2" /> <id nullFlavor="NA" /> <code codeSystem="local" code="GLUN" displayName="Glucose NPT" /> <statusCode code="completed" /> <effectiveTime value="420339929970" /> <value unit="mg/dL" xsi:type="PQ " value="106" /> <interpretationCode codeSystem="local" code="*" /> <referenceRange> <observationRange> <text>70-100< /text> </observationRange> </referenceRange> </ observation> </component> </organizer> </entry> <entry> <organizer moodCode="EVN" classCode="BATTERY"> <templateId root= "16.840.1.780183.10...4.1" /> <id nullFlavor="NA" /> <code codeSystem="local" code="CBCND" displayName="CBC With Platelet No Differential" /> <statusCode code="completed" /> <component> <observation moodCode="EVN" classCode="OBS"> <templateId root= "16.840.1.222442.10..22.4.2" /> <id nullFlavor="NA" /> < code codeSystem="local" code="HCT" displayName="HCT" /> <statusCode code="completed" /> <effectiveTime value="[id number]" /> < value unit="%" xsi:type="PQ" value="39.0" /> <interpretationCode codeSystem="local" code="*" /> <referenceRange> < observationRange> <text>42.0-52.0</text> </ observationRange> </referenceRange> </observation> </ component> <component> <observation moodCode="EVN" classCode="OBS"> <templateId root="10.29.840.1.418180.10.20.22.4.2" /> <id nullFlavor="NA" /> <code codeSystem="local" code="HGB" displayName="HGB " /> <statusCode code="completed" /> <effectiveTime value= "" /> <value unit="g/dL" xsi:type="PQ" value="12.6" /> <interpretationCode codeSystem="local" code="*" /> < referenceRange> <observationRange> <text>14.0-18.0</text > </observationRange> </referenceRange> </observation > </component> <component> <observation moodCode="EVN" classCode="OBS"> <templateId root="2.16.840.1.577225.10..22.4.2" /> <id nullFlavor="NA" /> <code codeSystem="local" code="MCH" displayName="MCH" /> <statusCode code="completed" /> < effectiveTime value="" /> <value unit="pg" xsi:type="PQ" value="29.0" /> <referenceRange> <observationRange> <text>27.0-32.0</text> </observationRange> </ referenceRange> </observation> </component> <component> <observation moodCode="EVN" classCode="OBS"> <templateId root= "2.16.840.1.222720.10...4.2" /> <id nullFlavor="NA" /> < code codeSystem="local" code="MCHC" displayName="MCHC" /> <statusCode code="completed" /> <effectiveTime value="" /> < value unit="g/dL" xsi:type="PQ" value="32.3" /> <referenceRange> <observationRange> <text>32.0-36.0</text> </ observationRange> </referenceRange> </observation> </ component> <component> <observation moodCode="EVN" classCode="OBS"> <templateId root="10.29.840.1.307235.10.20.22.4.2" /> <id nullFlavor="NA" /> <code codeSystem="local" code="MCV" displayName="MCV " /> <statusCode code="completed" /> <effectiveTime value= "" /> <value unit="fL" xsi:type="PQ" value="89.9" /> <referenceRange> <observationRange> <text>82.0-99.0< /text> </observationRange> </referenceRange> </ observation> </component> <component> <observation moodCode= "EVN" classCode="OBS"> <templateId root="10.29.840.1.116646.10..22.4.2 " /> <id nullFlavor="NA" /> <code codeSystem="local" code="MPV " displayName="MPV" /> <statusCode code="completed" /> < effectiveTime value="" /> <value unit="fL" xsi:type="PQ" value="10.6" /> <referenceRange> <observationRange> <text>9.4-12.3</text> </observationRange> </ referenceRange> </observation> </component> <component> <observation moodCode="EVN" classCode="OBS"> <templateId root= "10.29.840.1.968552.10.20.22.4.2" /> <id nullFlavor="NA" /> < code codeSystem="local" code="PLT" displayName="Platelet Count" /> < statusCode code="completed" /> <effectiveTime value="257100610501" /> <value unit="K/uL" xsi:type="PQ" value="165" /> < referenceRange> <observationRange> <text>150-400</text> </observationRange> </referenceRange> </observation > </component> <component> <observation moodCode="EVN" classCode="OBS"> <templateId root="10.29.840.1.697849.10.2022.4.2" /> <id nullFlavor="NA" /> <code codeSystem="local" code="RBC" displayName="RBC" /> <statusCode code="completed" /> < effectiveTime value="486457809158" /> <value unit="10*6/uL" xsi:type= "PQ" value="4.34" /> <interpretationCode codeSystem="local" code="*" / > <referenceRange> <observationRange> <text> 4.60-6.20</text> </observationRange> </referenceRange> </observation> </component> <component> <observation moodCode="EVN" classCode="OBS"> <templateId root= "10.29.840.1.373616.102022.4.2" /> <id nullFlavor="NA" /> < code codeSystem="local" code="RDW" displayName="RDW" /> <statusCode code="completed" /> <effectiveTime value="185765516043" /> < value unit="%" xsi:type="PQ" value="16.3" /> <interpretationCode codeSystem="local" code="*" /> <referenceRange> < observationRange> <text>11.5-14.5</text> </ observationRange> </referenceRange> </observation> </ component> <component> <observation moodCode="EVN" classCode="OBS"> <templateId root="10.29.840.1.860840.10.2022.4.2" /> <id nullFlavor="NA" /> <code codeSystem="local" code="WBCIR" displayName= "WBC" /> <statusCode code="completed" /> <effectiveTime value= "363688370011" /> <value unit="K/uL" xsi:type="PQ" value="7.3" /> <referenceRange> <observationRange> <text>4.8-10.8< /text> </observationRange> </referenceRange> </ observation> </component> </organizer> </entry> <entry> <organizer moodCode="EVN" classCode="BATTERY"> <templateId root= "840.1.063308.10.20.22.4.1" /> <id nullFlavor="NA" /> <code codeSystem="local" code="RENAL" displayName="Renal Function Panel" /> < statusCode code="completed" /> <component> <observation moodCode= "EVN" classCode="OBS"> <templateId root="10.29.840.1.097441.10..22.4.2 " /> <id nullFlavor="NA" /> <code codeSystem="local" code="ALB " displayName="Albumin" /> <statusCode code="completed" /> < effectiveTime value="412269103410" /> <value unit="g/dL" xsi:type="PQ" value="3.1" /> <interpretationCode codeSystem="local" code="*" /> <referenceRange> <observationRange> <text>3.5-4.8</ text> </observationRange> </referenceRange> </ observation> </component> <component> <observation moodCode= "EVN" classCode="OBS"> <templateId root="840.1.313220.10.20.22.4.2 " /> <id nullFlavor="NA" /> <code codeSystem="local" code= "AGAP" displayName="Anion Gap" /> <statusCode code="completed" /> <effectiveTime value="428715455305" /> <value unit="mEq/L" xsi: type="PQ" value="5" /> <referenceRange> <observationRange> <text>3-20</text> </observationRange> </ referenceRange> </observation> </component> <component> <observation moodCode="EVN" classCode="OBS"> <templateId root= "10.29.840.1.037245.22.4.2" /> <id nullFlavor="NA" /> < code codeSystem="local" code="BUN" displayName="BUN" /> <statusCode code="completed" /> <effectiveTime value="674793162012" /> < value unit="mg/dL" xsi:type="PQ" value="26" /> <interpretationCode codeSystem="local" code="*" /> <referenceRange> < observationRange> <text>4-20</text> </observationRange> </referenceRange> </observation> </component> < component> <observation moodCode="EVN" classCode="OBS"> < templateId root="10.29.840.1.494987.22.4.2" /> <id nullFlavor="NA " /> <code codeSystem="local" code="CA" displayName="Calcium" /> <statusCode code="completed" /> <effectiveTime value="890509747600 " /> <value unit="mg/dL" xsi:type="PQ" value="8.9" /> < referenceRange> <observationRange> <text>8.6-10.0</text > </observationRange> </referenceRange> </observation > </component> <component> <observation moodCode="EVN" classCode="OBS"> <templateId root="10.29.840.1.387392.07.02.22.4.2" /> <id nullFlavor="NA" /> <code codeSystem="local" code="CL" displayName="Chloride" /> <statusCode code="completed" /> < effectiveTime value="102989580582" /> <value unit="mEq/L" xsi:type="PQ " value="104" /> <referenceRange> <observationRange> <text>99-109</text> </observationRange> </ referenceRange> </observation> </component> <component> <observation moodCode="EVN" classCode="OBS"> <templateId root= "216.840.1.843213.10...4.2" /> <id nullFlavor="NA" /> < code codeSystem="local" code="CO2" displayName="CO2" /> <statusCode code="completed" /> <effectiveTime value="371900779472" /> < value unit="mEq/L" xsi:type="PQ" value="28" /> <referenceRange> <observationRange> <text>22-32</text> </ observationRange> </referenceRange> </observation> </ component> <component> <observation moodCode="EVN" classCode="OBS"> <templateId root="2.16.840.1.580087.10...4.2" /> <id nullFlavor="NA" /> <code codeSystem="local" code="CREAT" displayName= "Creatinine" /> <statusCode code="completed" /> < effectiveTime value="210450265079" /> <value unit="mg/dL" xsi:type="PQ " value="1.12" /> <referenceRange> <observationRange> <text>0.64-1.27</text> </observationRange> </ referenceRange> </observation> </component> <component> <observation moodCode="EVN" classCode="OBS"> <templateId root= "10.29.840.1.841226.10.20.22.4.2" /> <id nullFlavor="NA" /> < code codeSystem="local" code="GLU" displayName="Glucose" /> < statusCode code="completed" /> <effectiveTime value="051926980489" /> <value unit="mg/dL" xsi:type="PQ" value="89" /> < referenceRange> <observationRange> <text>70-100</text> </observationRange> </referenceRange> </observation> </component> <component> <observation moodCode="EVN" classCode ="OBS"> <templateId root="10.29.840.1.101660.2022.4.2" /> < id nullFlavor="NA" /> <code codeSystem="local" code="PHOS" displayName= "Phosphorus" /> <statusCode code="completed" /> < effectiveTime value="687833567073" /> <value unit="mg/dL" xsi:type="PQ " value="3.2" /> <referenceRange> <observationRange> <text>2.4-4.7</text> </observationRange> </ referenceRange> </observation> </component> <component> <observation moodCode="EVN" classCode="OBS"> <templateId root= "10.29.840.1.886294.10.20.22.4.2" /> <id nullFlavor="NA" /> < code codeSystem="local" code="K" displayName="Potassium" /> < statusCode code="completed" /> <effectiveTime value="766819571993" /> <value unit="mEq/L" xsi:type="PQ" value="4.4" /> < referenceRange> <observationRange> <text>3.6-5.1</text> </observationRange> </referenceRange> </observation > </component> <component> <observation moodCode="EVN" classCode="OBS"> <templateId root="216.840.1.614610.10.4.2" /> <id nullFlavor="NA" /> <code codeSystem="local" code="NA" displayName="Sodium" /> <statusCode code="completed" /> < effectiveTime value="645469840229" /> <value unit="mEq/L" xsi:type="PQ " value="137" /> <referenceRange> <observationRange> <text>136-144</text> </observationRange> </ referenceRange> </observation> </component> </organizer> </entry > <entry> <organizer moodCode="EVN" classCode="BATTERY"> <templateId root="216.840.1.557838.10..22.4.1" /> <id nullFlavor="NA" /> <code codeSystem="local" code="GFR" displayName="eGFR" /> <statusCode code= "completed" /> <component> <observation moodCode="EVN" classCode= "OBS"> <templateId root="2.16.840.1.956094.10..22.4.2" /> < id nullFlavor="NA" /> <code codeSystem="local" code="GFR" displayName= "eGFR" /> <statusCode code="completed" /> <effectiveTime value ="739507507654" /> <value unit="mL/min" xsi:type="PQ" value=">60" / > <referenceRange> <observationRange> <text>&gt ;60</text> </observationRange> </referenceRange> </ observation> </component> </organizer> </entry> <entry> <organizer moodCode="EVN" classCode="BATTERY"> <templateId root= "10.29.840.1.049251.10...4.1" /> <id nullFlavor="NA" /> <code codeSystem="local" code="CBCND" displayName="CBC With Platelet No Differential" /> <statusCode code="completed" /> <component> <observation moodCode="EVN" classCode="OBS"> <templateId root= "10.29.840.1.029283.07.02.22.4.2" /> <id nullFlavor="NA" /> < code codeSystem="local" code="HCT" displayName="HCT" /> <statusCode code="completed" /> <effectiveTime value="" /> < value unit="%" xsi:type="PQ" value="43.7" /> <referenceRange> <observationRange> <text>42.0-52.0</text> </ observationRange> </referenceRange> </observation> </ component> <component> <observation moodCode="EVN" classCode="OBS"> <templateId root="10.29.840.1.310427.07.02.22.4.2" /> <id nullFlavor="NA" /> <code codeSystem="local" code="HGB" displayName="HGB " /> <statusCode code="completed" /> <effectiveTime value= "" /> <value unit="g/dL" xsi:type="PQ" value="14.5" /> <referenceRange> <observationRange> <text>14.0- 18.0</text> </observationRange> </referenceRange> </ observation> </component> <component> <observation moodCode= "EVN" classCode="OBS"> <templateId root="10.29.840.1.189599.07.02.22.4.2 " /> <id nullFlavor="NA" /> <code codeSystem="local" code="MCH " displayName="MCH" /> <statusCode code="completed" /> < effectiveTime value="" /> <value unit="pg" xsi:type="PQ" value="30.3" /> <referenceRange> <observationRange> <text>27.0-32.0</text> </observationRange> </ referenceRange> </observation> </component> <component> <observation moodCode="EVN" classCode="OBS"> <templateId root= "2.16.840.1.939838.07.02.22.4.2" /> <id nullFlavor="NA" /> < code codeSystem="local" code="MCHC" displayName="MCHC" /> <statusCode code="completed" /> <effectiveTime value="" /> < value unit="g/dL" xsi:type="PQ" value="33.2" /> <referenceRange> <observationRange> <text>32.0-36.0</text> </ observationRange> </referenceRange> </observation> </ component> <component> <observation moodCode="EVN" classCode="OBS"> <templateId root="2.16.840.1.128305.10.4.2" /> <id nullFlavor="NA" /> <code codeSystem="local" code="MCV" displayName="MCV " /> <statusCode code="completed" /> <effectiveTime value= "" /> <value unit="fL" xsi:type="PQ" value="91.2" /> <referenceRange> <observationRange> <text>82.0-99.0< /text> </observationRange> </referenceRange> </ observation> </component> <component> <observation moodCode= "EVN" classCode="OBS"> <templateId root="16.840.1.392866.10.20.22.4.2 " /> <id nullFlavor="NA" /> <code codeSystem="local" code="MPV " displayName="MPV" /> <statusCode code="completed" /> < effectiveTime value="" /> <value unit="fL" xsi:type="PQ" value="10.7" /> <referenceRange> <observationRange> <text>9.4-12.3</text> </observationRange> </ referenceRange> </observation> </component> <component> <observation moodCode="EVN" classCode="OBS"> <templateId root= "10.29.840.1.133481..22.4.2" /> <id nullFlavor="NA" /> < code codeSystem="local" code="PLT" displayName="Platelet Count" /> < statusCode code="completed" /> <effectiveTime value="" /> <value unit="K/uL" xsi:type="PQ" value="167" /> < referenceRange> <observationRange> <text>150-400</text> </observationRange> </referenceRange> </observation > </component> <component> <observation moodCode="EVN" classCode="OBS"> <templateId root="10.29.840.1.210017.10.20.22.4.2" /> <id nullFlavor="NA" /> <code codeSystem="local" code="RBC" displayName="RBC" /> <statusCode code="completed" /> < effectiveTime value="" /> <value unit="10*6/uL" xsi:type= "PQ" value="4.79" /> <referenceRange> <observationRange> <text>4.60-6.20</text> </observationRange> </ referenceRange> </observation> </component> <component> <observation moodCode="EVN" classCode="OBS"> <templateId root= "216.840.1.627555.10.22.4.2" /> <id nullFlavor="NA" /> < code codeSystem="local" code="RDW" displayName="RDW" /> <statusCode code="completed" /> <effectiveTime value="" /> < value unit="%" xsi:type="PQ" value="14.9" /> <interpretationCode codeSystem="local" code="*" /> <referenceRange> < observationRange> <text>11.5-14.5</text> </ observationRange> </referenceRange> </observation> </ component> <component> <observation moodCode="EVN" classCode="OBS"> <templateId root="10.29.840.1.241460.07.02.22.4.2" /> <id nullFlavor="NA" /> <code codeSystem="local" code="WBCIR" displayName= "WBC" /> <statusCode code="completed" /> <effectiveTime value= "" /> <value unit="K/uL" xsi:type="PQ" value="7.5" /> <referenceRange> <observationRange> <text>4.8-10.8< /text> </observationRange> </referenceRange> </ observation> </component> </organizer> </entry> <entry> <organizer moodCode="EVN" classCode="BATTERY"> <templateId root= "216.840.1.661849.10..22.4.1" /> <id nullFlavor="NA" /> <code codeSystem="local" code="CMP" displayName="Comprehensive Metabolic Panel (CMP)" /> <statusCode code="completed" /> <component> <observation moodCode="EVN" classCode="OBS"> <templateId root= "216.840.1.917554.10..4.2" /> <id nullFlavor="NA" /> < code codeSystem="local" code="ALB" displayName="Albumin" /> < statusCode code="completed" /> <effectiveTime value="" /> <value unit="g/dL" xsi:type="PQ" value="4.0" /> < referenceRange> <observationRange> <text>3.5-4.8</text> </observationRange> </referenceRange> </observation > </component> <component> <observation moodCode="EVN" classCode="OBS"> <templateId root="16.840.1.654490.07.02.22.4.2" /> <id nullFlavor="NA" /> <code codeSystem="local" code="ALP" displayName="Alkaline Phosphatase" /> <statusCode code="completed" /> <effectiveTime value="" /> <value unit="U/L" xsi: type="PQ" value="36" /> <referenceRange> <observationRange> <text>26-104</text> </observationRange> </ referenceRange> </observation> </component> <component> <observation moodCode="EVN" classCode="OBS"> <templateId root= "16.840.1.152289.10..4.2" /> <id nullFlavor="NA" /> < code codeSystem="local" code="ALT" displayName="ALT (SGPT)" /> < statusCode code="completed" /> <effectiveTime value="" /> <value unit="U/L" xsi:type="PQ" value="23" /> <referenceRange > <observationRange> <text>17-63</text> </ observationRange> </referenceRange> </observation> </ component> <component> <observation moodCode="EVN" classCode="OBS"> <templateId root="216.840.1.968944.10...4.2" /> <id nullFlavor="NA" /> <code codeSystem="local" code="AGAP" displayName= "Anion Gap" /> <statusCode code="completed" /> <effectiveTime value="" /> <value unit="mEq/L" xsi:type="PQ" value="8" /> <referenceRange> <observationRange> <text>3-20 </text> </observationRange> </referenceRange> </ observation> </component> <component> <observation moodCode= "EVN" classCode="OBS"> <templateId root="10.29.840.1.400727.10..4.2 " /> <id nullFlavor="NA" /> <code codeSystem="local" code="AST " displayName="AST (SGOT)" /> <statusCode code="completed" /> <effectiveTime value="" /> <value unit="U/L" xsi:type="PQ" value="18" /> <referenceRange> <observationRange> <text>15-41</text> </observationRange> </referenceRange > </observation> </component> <component> <observation moodCode="EVN" classCode="OBS"> <templateId root= "10.29.840.1.983052.10..4.2" /> <id nullFlavor="NA" /> < code codeSystem="local" code="BILIT" displayName="Bilirubin Total" /> < statusCode code="completed" /> <effectiveTime value="" /> <value unit="mg/dL" xsi:type="PQ" value="0.6" /> < referenceRange> <observationRange> <text>0.2-1.2</text> </observationRange> </referenceRange> </observation > </component> <component> <observation moodCode="EVN" classCode="OBS"> <templateId root="16.840.1.270974..22.4.2" /> <id nullFlavor="NA" /> <code codeSystem="local" code="BUN" displayName="BUN" /> <statusCode code="completed" /> < effectiveTime value="" /> <value unit="mg/dL" xsi:type="PQ " value="31" /> <interpretationCode codeSystem="local" code="*" /> <referenceRange> <observationRange> <text>4-20</ text> </observationRange> </referenceRange> </ observation> </component> <component> <observation moodCode= "EVN" classCode="OBS"> <templateId root="10.29.840.1.414605.07.02.22.4.2 " /> <id nullFlavor="NA" /> <code codeSystem="local" code="CA " displayName="Calcium" /> <statusCode code="completed" /> < effectiveTime value="" /> <value unit="mg/dL" xsi:type="PQ " value="9.7" /> <referenceRange> <observationRange> <text>8.6-10.0</text> </observationRange> </ referenceRange> </observation> </component> <component> <observation moodCode="EVN" classCode="OBS"> <templateId root= "16.840.1.216259.22.4.2" /> <id nullFlavor="NA" /> < code codeSystem="local" code="CL" displayName="Chloride" /> < statusCode code="completed" /> <effectiveTime value="" /> <value unit="mEq/L" xsi:type="PQ" value="101" /> < referenceRange> <observationRange> <text>99-109</text> </observationRange> </referenceRange> </observation> </component> <component> <observation moodCode="EVN" classCode ="OBS"> <templateId root="2.16.840.1.526651.10..4.2" /> < id nullFlavor="NA" /> <code codeSystem="local" code="CO2" displayName= "CO2" /> <statusCode code="completed" /> <effectiveTime value= "" /> <value unit="mEq/L" xsi:type="PQ" value="31" /> <referenceRange> <observationRange> <text>22-32</ text> </observationRange> </referenceRange> </ observation> </component> <component> <observation moodCode= "EVN" classCode="OBS"> <templateId root="2.16.840.1.992315.10...4.2 " /> <id nullFlavor="NA" /> <code codeSystem="local" code= "CREAT" displayName="Creatinine" /> <statusCode code="completed" /> <effectiveTime value="" /> <value unit="mg/dL" xsi: type="PQ" value="1.20" /> <referenceRange> <observationRange > <text>0.64-1.27</text> </observationRange> </ referenceRange> </observation> </component> <component> <observation moodCode="EVN" classCode="OBS"> <templateId root= "16.840.1.203203.10.22.4.2" /> <id nullFlavor="NA" /> < code codeSystem="local" code="GLOB" displayName="Globulin" /> < statusCode code="completed" /> <effectiveTime value="" /> <value unit="g/dL" xsi:type="PQ" value="2.4" /> < referenceRange> <observationRange> <text>1.9-4.3</text> </observationRange> </referenceRange> </observation > </component> <component> <observation moodCode="EVN" classCode="OBS"> <templateId root="10.29.840.1.448292.07.02.22.4.2" /> <id nullFlavor="NA" /> <code codeSystem="local" code="GLU" displayName="Glucose" /> <statusCode code="completed" /> < effectiveTime value="" /> <value unit="mg/dL" xsi:type="PQ " value="97" /> <referenceRange> <observationRange> <text>70-100</text> </observationRange> </ referenceRange> </observation> </component> <component> <observation moodCode="EVN" classCode="OBS"> <templateId root= "10.29.840.1.723961.22.4.2" /> <id nullFlavor="NA" /> < code codeSystem="local" code="K" displayName="Potassium" /> < statusCode code="completed" /> <effectiveTime value="" /> <value unit="mEq/L" xsi:type="PQ" value="4.8" /> < referenceRange> <observationRange> <text>3.6-5.1</text> </observationRange> </referenceRange> </observation > </component> <component> <observation moodCode="EVN" classCode="OBS"> <templateId root="10.29.840.1.955668.10.4.2" /> <id nullFlavor="NA" /> <code codeSystem="local" code="TP" displayName="Protein" /> <statusCode code="completed" /> < effectiveTime value="" /> <value unit="g/dL" xsi:type="PQ" value="6.4" /> <referenceRange> <observationRange> <text>6.1-7.9</text> </observationRange> </ referenceRange> </observation> </component> <component> <observation moodCode="EVN" classCode="OBS"> <templateId root= "10.29.840.1.632634.07.02.22.4.2" /> <id nullFlavor="NA" /> < code codeSystem="local" code="NA" displayName="Sodium" /> <statusCode code="completed" /> <effectiveTime value="" /> < value unit="mEq/L" xsi:type="PQ" value="140" /> <referenceRange> <observationRange> <text>136-144</text> </ observationRange> </referenceRange> </observation> </ component> </organizer> </entry> <entry> <organizer moodCode="EVN" classCode="BATTERY"> <templateId root="16.840.1.477299.10..4.1" /> <id nullFlavor="NA" /> <code codeSystem="local" code="GFR" displayName ="eGFR" /> <statusCode code="completed" /> <component> < observation moodCode="EVN" classCode="OBS"> <templateId root= "10.29.840.1.850449.10.20.22.4.2" /> <id nullFlavor="NA" /> < code codeSystem="local" code="GFR" displayName="eGFR" /> <statusCode code="completed" /> <effectiveTime value="350181441700" /> < value unit="mL/min" xsi:type="PQ" value=">60" /> <referenceRange> <observationRange> <text>>60</text> </ observationRange> </referenceRange> </observation> </ component> </organizer> </entry> <entry> <organizer moodCode="EVN" classCode="BATTERY"> <templateId root="2.16.840.1.311808.10.20.22.4.1" /> <id nullFlavor="NA" /> <code codeSystem="local" code="32090-9" displayName="Complete blood count (CBC) with automated white blood cell (WBC) differential" /> <statusCode code="completed" /> <component> < observation moodCode="EVN" classCode="OBS"> <templateId root= "2.16.840.1.246126.10.20.22.4.2" /> <id nullFlavor="NA" /> < code codeSystem="local" code="6690-2" displayName="Blood leukocytes automated count (number/volume)" /> <statusCode code="completed" /> < effectiveTime value="021702604389" /> <value unit="10*3/uL" xsi:type= "PQ" value="9.1" /> <referenceRange> <observationRange> <text>4.3-11.0</text> </observationRange> </ referenceRange> </observation> </component> <component> <observation moodCode="EVN" classCode="OBS"> <templateId root= "216.840.1.264959.10.20.22.4.2" /> <id nullFlavor="NA" /> < code codeSystem="local" code="789-8" displayName="Blood erythrocytes automated count (number/volume)" /> <statusCode code="completed" /> < effectiveTime value="668742719086" /> <value unit="10*6/uL" xsi:type= "PQ" value="4.81" /> <referenceRange> <observationRange> <text>4.35-5.85</text> </observationRange> </ referenceRange> </observation> </component> <component> <observation moodCode="EVN" classCode="OBS"> <templateId root= "216.840.1.173166.10.20.22.4.2" /> <id nullFlavor="NA" /> < code codeSystem="local" code="16545-1" displayName="Venous blood hemoglobin measurement (mass/volume)" /> <statusCode code="completed" /> <effectiveTime value="761368205214" /> <value unit="g/dL" xsi:type="PQ " value="14.7" /> <referenceRange> <observationRange> <text>13.3-17.7</text> </observationRange> </ referenceRange> </observation> </component> <component> <observation moodCode="EVN" classCode="OBS"> <templateId root= "2.16.840.1.557275.10.20.22.4.2" /> <id nullFlavor="NA" /> < code codeSystem="local" code="47235-9" displayName="Blood hematocrit (volume fraction)" /> <statusCode code="completed" /> <effectiveTime value="192770643681" /> <value unit="%" xsi:type="PQ" value="44" / > <referenceRange> <observationRange> <text>40- 54</text> </observationRange> </referenceRange> </ observation> </component> <component> <observation moodCode= "EVN" classCode="OBS"> <templateId root="216.840.1.714533.10.20.22.4.2 " /> <id nullFlavor="NA" /> <code codeSystem="local" code="787 -2" displayName="Automated erythrocyte mean corpuscular volume" /> < statusCode code="completed" /> <effectiveTime value="646717109256" /> <value unit="[foz_us]" xsi:type="PQ" value="91" /> < referenceRange> <observationRange> <text>80-99</text> </observationRange> </referenceRange> </observation> </component> <component> <observation moodCode="EVN" classCode= "OBS"> <templateId root="16.840.1.593754.10..22.4.2" /> < id nullFlavor="NA" /> <code codeSystem="local" code="785-6" displayName ="Automated erythrocyte mean corpuscular hemoglobin (mass per erythrocyte)" /> <statusCode code="completed" /> <effectiveTime value= "414001313462" /> <value unit="pg" xsi:type="PQ" value="31" /> <referenceRange> <observationRange> <text>25-34</text > </observationRange> </referenceRange> </observation > </component> <component> <observation moodCode="EVN" classCode="OBS"> <templateId root="216.840.1.423760.10.20.22.4.2" /> <id nullFlavor="NA" /> <code codeSystem="local" code="786-4" displayName="Automated erythrocyte mean corpuscular hemoglobin concentration measurement (mass/volume)" /> <statusCode code="completed" /> <effectiveTime value="330979683075" /> <value unit="g/dL" xsi:type="PQ " value="34" /> <referenceRange> <observationRange> <text>32-36</text> </observationRange> </ referenceRange> </observation> </component> <component> <observation moodCode="EVN" classCode="OBS"> <templateId root= "2.16.840.1.121586.10.20.22.4.2" /> <id nullFlavor="NA" /> < code codeSystem="local" code="788-0" displayName="Automated erythrocyte distribution width ratio" /> <statusCode code="completed" /> < effectiveTime value="157450929181" /> <value unit="%" xsi:type="PQ " value="14.2" /> <referenceRange> <observationRange> <text>10.0-14.5</text> </observationRange> </ referenceRange> </observation> </component> <component> <observation moodCode="EVN" classCode="OBS"> <templateId root= "2.16.840.1.363480.10.20.22.4.2" /> <id nullFlavor="NA" /> < code codeSystem="local" code="777-3" displayName="Automated blood platelet count (count/volume)" /> <statusCode code="completed" /> < effectiveTime value="708789690569" /> <value unit="10*3/uL" xsi:type= "PQ" value="155" /> <referenceRange> <observationRange> <text>130-400</text> </observationRange> </ referenceRange> </observation> </component> <component> <observation moodCode="EVN" classCode="OBS"> <templateId root= "10.29.840.1.782532.10.20.22.4.2" /> <id nullFlavor="NA" /> < code codeSystem="local" code="12513-4" displayName="Automated blood platelet mean volume measurement" /> <statusCode code="completed" /> < effectiveTime value="955974286418" /> <value unit="[fo_us]" xsi:type= "PQ" value="10.5" /> <interpretationCode codeSystem="local" code="" / > <referenceRange> <observationRange> <text>7.4 -10.4</text> </observationRange> </referenceRange> </ observation> </component> <component> <observation moodCode= "EVN" classCode="OBS"> <templateId root="216.840.1.105778.10.22.4.2 " /> <id nullFlavor="NA" /> <code codeSystem="local" code="770 -8" displayName="Automated blood neutrophils/100 leukocytes" /> < statusCode code="completed" /> <effectiveTime value="898573787271" /> <value unit="%" xsi:type="PQ" value="69" /> < referenceRange> <observationRange> <text>42-75</text> </observationRange> </referenceRange> </observation> </component> <component> <observation moodCode="EVN" classCode= "OBS"> <templateId root="216.840.1.151689.10.20.22.4.2" /> < id nullFlavor="NA" /> <code codeSystem="local" code="736-9" displayName ="Automated blood lymphocytes/100 leukocytes" /> <statusCode code= "completed" /> <effectiveTime value="072446327624" /> <value unit="%" xsi:type="PQ" value="16" /> <referenceRange> < observationRange> <text>12-44</text> </observationRange > </referenceRange> </observation> </component> < component> <observation moodCode="EVN" classCode="OBS"> < templateId root="216.840.1.315970.10.20.22.4.2" /> <id nullFlavor="NA " /> <code codeSystem="local" code="41921-7" displayName="Blood monocytes/100 leukocytes" /> <statusCode code="completed" /> < effectiveTime value="659533543090" /> <value unit="%" xsi:type="PQ " value="13" /> <interpretationCode codeSystem="local" code="" /> <referenceRange> <observationRange> <text>0-12</ text> </observationRange> </referenceRange> </ observation> </component> <component> <observation moodCode= "EVN" classCode="OBS"> <templateId root="216.840.1.057621.10..4.2 " /> <id nullFlavor="NA" /> <code codeSystem="local" code="713 -8" displayName="Automated blood eosinophils/100 leukocytes" /> < statusCode code="completed" /> <effectiveTime value="617123274392" /> <value unit="%" xsi:type="PQ" value="2" /> <referenceRange > <observationRange> <text>0-10</text> </ observationRange> </referenceRange> </observation> </ component> <component> <observation moodCode="EVN" classCode="OBS"> <templateId root="216.840.1.403323.10.20.22.4.2" /> <id nullFlavor="NA" /> <code codeSystem="local" code="706-2" displayName= "Automated blood basophils/100 leukocytes" /> <statusCode code= "completed" /> <effectiveTime value="570837538861" /> <value unit="%" xsi:type="PQ" value="0" /> <referenceRange> < observationRange> <text>0-10</text> </observationRange> </referenceRange> </observation> </component> < component> <observation moodCode="EVN" classCode="OBS"> < templateId root="2.16.840.1.429497.10.20.22.4.2" /> <id nullFlavor="NA " /> <code codeSystem="local" code="751-8" displayName="Blood neutrophils automated count (number/volume)" /> <statusCode code= "completed" /> <effectiveTime value="924770880742" /> <value unit="10*3" xsi:type="PQ" value="6.3" /> <referenceRange> < observationRange> <text>1.8-7.8</text> </ observationRange> </referenceRange> </observation> </ component> <component> <observation moodCode="EVN" classCode="OBS"> <templateId root="2.16.840.1.861280.10.20.22.4.2" /> <id nullFlavor="NA" /> <code codeSystem="local" code="731-0" displayName= "Blood lymphocytes automated count (number/volume)" /> <statusCode code ="completed" /> <effectiveTime value="967678964485" /> <value unit="10*3" xsi:type="PQ" value="1.4" /> <referenceRange> < observationRange> <text>1.0-4.0</text> </ observationRange> </referenceRange> </observation> </ component> <component> <observation moodCode="EVN" classCode="OBS"> <templateId root="216.840.1.573418.10..4.2" /> <id nullFlavor="NA" /> <code codeSystem="local" code="742-7" displayName= "Blood monocytes automated count (number/volume)" /> <statusCode code= "completed" /> <effectiveTime value="" /> <value unit="10*3" xsi:type="PQ" value="1.2" /> <interpretationCode codeSystem ="local" code="" /> <referenceRange> <observationRange> <text>0.0-1.0</text> </observationRange> </ referenceRange> </observation> </component> <component> <observation moodCode="EVN" classCode="OBS"> <templateId root= "216.840.1.887299.07.02.22.4.2" /> <id nullFlavor="NA" /> < code codeSystem="local" code="711-2" displayName="Automated eosinophil count" / > <statusCode code="completed" /> <effectiveTime value= "171537634628" /> <value unit="10*3/uL" xsi:type="PQ" value="0.2" /> <referenceRange> <observationRange> <text>0.0- 0.3</text> </observationRange> </referenceRange> </ observation> </component> <component> <observation moodCode= "EVN" classCode="OBS"> <templateId root="216.840.1.288583.10.22.4.2 " /> <id nullFlavor="NA" /> <code codeSystem="local" code="704 -7" displayName="Automated blood basophil count (count/volume)" /> < statusCode code="completed" /> <effectiveTime value="217675407628" /> <value unit="10*3/uL" xsi:type="PQ" value="0.0" /> < referenceRange> <observationRange> <text>0.0-0.1</text> </observationRange> </referenceRange> </observation > </component> </organizer> </entry> <entry> <organizer moodCode= "EVN" classCode="BATTERY"> <templateId root="216.840.1.661626.10.20.22.4.1 " /> <id nullFlavor="NA" /> <code codeSystem="local" code="86162-0" displayName="Comprehensive metabolic panel" /> <statusCode code="completed " /> <component> <observation moodCode="EVN" classCode="OBS"> <templateId root="2.16.840.1.697603.10..22.4.2" /> <id nullFlavor ="NA" /> <code codeSystem="local" code="2951-2" displayName="Serum or plasma sodium measurement (moles/volume)" /> <statusCode code= "completed" /> <effectiveTime value="816678108971" /> <value unit="mmol/L" xsi:type="PQ" value="140" /> <referenceRange> <observationRange> <text>135-145</text> </ observationRange> </referenceRange> </observation> </ component> <component> <observation moodCode="EVN" classCode="OBS"> <templateId root="2.16.840.1.735327.10.20.22.4.2" /> <id nullFlavor="NA" /> <code codeSystem="local" code="2823-3" displayName= "Serum or plasma potassium measurement (moles/volume)" /> <statusCode code="completed" /> <effectiveTime value="859317544638" /> < value unit="mmol/L" xsi:type="PQ" value="4.8" /> <referenceRange> <observationRange> <text>3.6-5.0</text> </ observationRange> </referenceRange> </observation> </ component> <component> <observation moodCode="EVN" classCode="OBS"> <templateId root="216.840.1.649169.10..22.4.2" /> <id nullFlavor="NA" /> <code codeSystem="local" code="" displayName= "Serum or plasma chloride measurement (moles/volume)" /> <statusCode code="completed" /> <effectiveTime value="377681547010" /> < value unit="mmol/L" xsi:type="PQ" value="105" /> <referenceRange> <observationRange> <text>98-107</text> </ observationRange> </referenceRange> </observation> </ component> <component> <observation moodCode="EVN" classCode="OBS"> <templateId root="2.840.1.294827.10..4.2" /> <id nullFlavor="NA" /> <code codeSystem="local" code="2028-05" displayName= "Carbon dioxide" /> <statusCode code="completed" /> < effectiveTime value="229700351612" /> <value unit="mmol/L" xsi:type="PQ " value="28" /> <referenceRange> <observationRange> <text>21-32</text> </observationRange> </ referenceRange> </observation> </component> <component> <observation moodCode="EVN" classCode="OBS"> <templateId root= "2.16.840.1.075630.10..22.4.2" /> <id nullFlavor="NA" /> < code codeSystem="local" code="79456-5" displayName="Serum or plasma anion gap determination (moles/volume)" /> <statusCode code="completed" /> <effectiveTime value="984923518408" /> <value unit="mmol/L" xsi: type="PQ" value="7" /> <referenceRange> <observationRange> <text>5-14</text> </observationRange> </ referenceRange> </observation> </component> <component> <observation moodCode="EVN" classCode="OBS"> <templateId root= "2.16.840.1.847206.10.20.22.4.2" /> <id nullFlavor="NA" /> < code codeSystem="local" code="3094-0" displayName="Serum or plasma urea nitrogen measurement (mass/volume)" /> <statusCode code="completed" /> <effectiveTime value="982956795124" /> <value unit="mg/dL" xsi:type="PQ" value="30" /> <interpretationCode codeSystem="local" code ="" /> <referenceRange> <observationRange> < text>7-18</text> </observationRange> </referenceRange> </observation> </component> <component> <observation moodCode="EVN" classCode="OBS"> <templateId root= "2.16.840.1.605119.10..22.4.2" /> <id nullFlavor="NA" /> < code codeSystem="local" code="2160-0" displayName="Serum or plasma creatinine measurement (mass/volume)" /> <statusCode code="completed" /> <effectiveTime value="407804164276" /> <value unit="mg/dL" xsi:type="PQ " value="0.96" /> <referenceRange> <observationRange> <text>0.60-1.30</text> </observationRange> </ referenceRange> </observation> </component> <component> <observation moodCode="EVN" classCode="OBS"> <templateId root= "2.16.840.1.888321.10..22.4.2" /> <id nullFlavor="NA" /> < code codeSystem="local" code="3097-3" displayName="Serum or plasma urea nitrogen /creatinine mass ratio" /> <statusCode code="completed" /> < effectiveTime value="782288019712" /> <value unit="" xsi:type="PQ" value="31" /> <referenceRange> <observationRange> <text>NRG</text> </observationRange> </referenceRange> </observation> </component> <component> <observation moodCode="EVN" classCode="OBS"> <templateId root= "216.840.1.853970.10..4.2" /> <id nullFlavor="NA" /> < code codeSystem="local" code="09625-5" displayName="Serum or plasma creatinine measurement with calculation of estimated glomerular filtration rate" /> <statusCode code="completed" /> <effectiveTime value="552323581132" /> <value unit="" xsi:type="PQ" value=">" /> < referenceRange> <observationRange> <text>NRG</text> </observationRange> </referenceRange> </observation> </component> <component> <observation moodCode="EVN" classCode= "OBS"> <templateId root="2.16.840.1.879081.10..22.4.2" /> < id nullFlavor="NA" /> <code codeSystem="local" code="2345-7" displayName="Serum or plasma glucose measurement (mass/volume)" /> < statusCode code="completed" /> <effectiveTime value="347142093797" /> <value unit="mg/dL" xsi:type="PQ" value="98" /> < referenceRange> <observationRange> <text>70-105</text> </observationRange> </referenceRange> </observation> </component> <component> <observation moodCode="EVN" classCode ="OBS"> <templateId root="2.16.840.1.582039.10.20.22.4.2" /> < id nullFlavor="NA" /> <code codeSystem="local" code="" displayName="Serum or plasma calcium measurement (mass/volume)" /> < statusCode code="completed" /> <effectiveTime value="377649339365" /> <value unit="mg/dL" xsi:type="PQ" value="9.6" /> < referenceRange> <observationRange> <text>8.5-10.1</text > </observationRange> </referenceRange> </observation > </component> <component> <observation moodCode="EVN" classCode="OBS"> <templateId root="2.16.840.1.087341.10..22.4.2" /> <id nullFlavor="NA" /> <code codeSystem="local" code="1974-10" displayName="Serum or plasma total bilirubin measurement (mass/volume)" /> <statusCode code="completed" /> <effectiveTime value="375487944973 " /> <value unit="mg/dL" xsi:type="PQ" value="0.3" /> < referenceRange> <observationRange> <text>0.1-1.0</text> </observationRange> </referenceRange> </observation > </component> <component> <observation moodCode="EVN" classCode="OBS"> <templateId root="2.16.840.1.406251.10.20.22.4.2" /> <id nullFlavor="NA" /> <code codeSystem="local" code="6768-" displayName="Serum or plasma alkaline phosphatase measurement (enzymatic activity/volume)" /> <statusCode code="completed" /> < effectiveTime value="784343764741" /> <value unit="U/L" xsi:type="PQ" value="41" /> <referenceRange> <observationRange> <text>40-136</text> </observationRange> </referenceRange > </observation> </component> <component> <observation moodCode="EVN" classCode="OBS"> <templateId root= "2.16.840.1.085872.10..22.4.2" /> <id nullFlavor="NA" /> < code codeSystem="local" code="192" displayName="Serum or plasma aspartate aminotransferase measurement (enzymatic activity/volume)" /> < statusCode code="completed" /> <effectiveTime value="603546615786" /> <value unit="U/L" xsi:type="PQ" value="13" /> <referenceRange > <observationRange> <text>5-34</text> </ observationRange> </referenceRange> </observation> </ component> <component> <observation moodCode="EVN" classCode="OBS"> <templateId root="2.16.840.1.442258.10..22.4.2" /> <id nullFlavor="NA" /> <code codeSystem="local" code="17410-19" displayName= "Serum or plasma alanine aminotransferase measurement (enzymatic activity/volume )" /> <statusCode code="completed" /> <effectiveTime value= "178721724797" /> <value unit="U/L" xsi:type="PQ" value="21" /> <referenceRange> <observationRange> <text>0-55</text > </observationRange> </referenceRange> </observation > </component> <component> <observation moodCode="EVN" classCode="OBS"> <templateId root="216.840.1.092744.10.20.22.4.2" /> <id nullFlavor="NA" /> <code codeSystem="local" code="2885-2" displayName="Serum or plasma protein measurement (mass/volume)" /> < statusCode code="completed" /> <effectiveTime value="849003612503" /> <value unit="g/dL" xsi:type="PQ" value="6.8" /> < referenceRange> <observationRange> <text>6.4-8.2</text> </observationRange> </referenceRange> </observation > </component> <component> <observation moodCode="EVN" classCode="OBS"> <templateId root="16.840.1.937317.10.20.22.4.2" /> <id nullFlavor="NA" /> <code codeSystem="local" code="1751-7" displayName="Serum or plasma albumin measurement (mass/volume)" /> < statusCode code="completed" /> <effectiveTime value="915783545017" /> <value unit="g/dL" xsi:type="PQ" value="4.2" /> < referenceRange> <observationRange> <text>3.2-4.5</text> </observationRange> </referenceRange> </observation > </component> </organizer> </entry> <entry> <organizer moodCode= "EVN" classCode="BATTERY"> <templateId root="2.16.840.1.748098.10.20.22.4.1 " /> <id nullFlavor="NA" /> <code codeSystem="local" code="THE4625" displayName="[id number]" /> <statusCode code="completed" /> <component> <observation moodCode="EVN" classCode="OBS"> <templateId root= "2.16.840.1.870477.10..4.2" /> <id nullFlavor="NA" /> < code codeSystem="local" code="KUM9762" displayName="[id number]" /> < statusCode code="completed" /> <effectiveTime value="287542052723" /> <value unit="ug/mL" xsi:type="PQ" value="55.5" /> < referenceRange> <observationRange> <text>50.0-100.0</ text> </observationRange> </referenceRange> </ observation> </component> </organizer> </entry> <entry> <organizer moodCode="EVN" classCode="BATTERY"> <templateId root= "216.840.1.200691.10..22.4.1" /> <id nullFlavor="NA" /> <code codeSystem="local" code="06030-7" displayName="Complete urinalysis with reflex to culture" /> <statusCode code="completed" /> <component> < observation moodCode="EVN" classCode="OBS"> <templateId root= "216.840.1.487403.10.22.4.2" /> <id nullFlavor="NA" /> < code codeSystem="local" code="5778-6" displayName="Urine color determination" / > <statusCode code="completed" /> <effectiveTime value= "514441046509" /> <value unit="" xsi:type="PQ" value="YELLOW" /> <referenceRange> <observationRange> <text>NRG</text > </observationRange> </referenceRange> </observation > </component> <component> <observation moodCode="EVN" classCode="OBS"> <templateId root="2.16.840.1.347638.10.20.22.4.2" /> <id nullFlavor="NA" /> <code codeSystem="local" code="72715-4 " displayName="Urine clarity determination" /> <statusCode code= "completed" /> <effectiveTime value="" /> <value unit="" xsi:type="PQ" value="CLEAR" /> <referenceRange> < observationRange> <text>NRG</text> </observationRange> </referenceRange> </observation> </component> < component> <observation moodCode="EVN" classCode="OBS"> < templateId root="216.840.1.434512.10..22.4.2" /> <id nullFlavor="NA " /> <code codeSystem="local" code="5803-2" displayName="Urine pH measurement by test strip" /> <statusCode code="completed" /> <effectiveTime value="" /> <value unit="" xsi:type="PQ" value="8" /> <referenceRange> <observationRange> <text>5-9</text> </observationRange> </referenceRange> </observation> </component> <component> <observation moodCode="EVN" classCode="OBS"> <templateId root= "216.840.1.128118.10.20.22.4.2" /> <id nullFlavor="NA" /> < code codeSystem="local" code="5811-5" displayName="Specific gravity of urine by test strip" /> <statusCode code="completed" /> <effectiveTime value="" /> <value unit="" xsi:type="PQ" value="1.010" /> <interpretationCode codeSystem="local" code="" /> < referenceRange> <observationRange> <text>1.016-1.022</ text> </observationRange> </referenceRange> </ observation> </component> <component> <observation moodCode= "EVN" classCode="OBS"> <templateId root="10.29.840.1.181837.10.22.4.2 " /> <id nullFlavor="NA" /> <code codeSystem="local" code= "48120-9" displayName="Urine protein assay by test strip, semi-quantitative" /> <statusCode code="completed" /> <effectiveTime value= "" /> <value unit="" xsi:type="PQ" value="NEGATIVE" /> <referenceRange> <observationRange> <text>NEGATIVE </text> </observationRange> </referenceRange> </ observation> </component> <component> <observation moodCode= "EVN" classCode="OBS"> <templateId root="840.1.909777.1022.4.2 " /> <id nullFlavor="NA" /> <code codeSystem="local" code= "60981-7" displayName="Urine glucose detection by automated test strip" /> <statusCode code="completed" /> <effectiveTime value=" " /> <value unit="" xsi:type="PQ" value="NEGATIVE" /> < referenceRange> <observationRange> <text>NEGATIVE</text > </observationRange> </referenceRange> </observation > </component> <component> <observation moodCode="EVN" classCode="OBS"> <templateId root="10.29.840.1.362243.102022.4.2" /> <id nullFlavor="NA" /> <code codeSystem="local" code="34738-1 " displayName="Erythrocytes detection in urine sediment by light microscopy" /> <statusCode code="completed" /> <effectiveTime value= "" /> <value unit="" xsi:type="PQ" value="NEGATIVE" /> <referenceRange> <observationRange> <text>NEGATIVE </text> </observationRange> </referenceRange> </ observation> </component> <component> <observation moodCode= "EVN" classCode="OBS"> <templateId root="10.29.840.1.032750.10..4.2 " /> <id nullFlavor="NA" /> <code codeSystem="local" code= "00765-8" displayName="Urine ketones detection by automated test strip" /> <statusCode code="completed" /> <effectiveTime value=" " /> <value unit="" xsi:type="PQ" value="NEGATIVE" /> < referenceRange> <observationRange> <text>NEGATIVE</text > </observationRange> </referenceRange> </observation > </component> <component> <observation moodCode="EVN" classCode="OBS"> <templateId root="10.29.840.1.370492.10..4.2" /> <id nullFlavor="NA" /> <code codeSystem="local" code="5802-4" displayName="Urine nitrite detection by test strip" /> <statusCode code ="completed" /> <effectiveTime value="" /> <value unit="" xsi:type="PQ" value="NEGATIVE" /> <referenceRange> < observationRange> <text>NEGATIVE</text> </ observationRange> </referenceRange> </observation> </ component> <component> <observation moodCode="EVN" classCode="OBS"> <templateId root="10.29.840.1.236515.10.4.2" /> <id nullFlavor="NA" /> <code codeSystem="local" code="5770-3" displayName= "Urine total bilirubin detection by test strip" /> <statusCode code= "completed" /> <effectiveTime value="" /> <value unit="" xsi:type="PQ" value="NEGATIVE" /> <referenceRange> < observationRange> <text>NEGATIVE</text> </ observationRange> </referenceRange> </observation> </ component> <component> <observation moodCode="EVN" classCode="OBS"> <templateId root="2.16.840.1.459568.10...4.2" /> <id nullFlavor="NA" /> <code codeSystem="local" code="76934-5" displayName= "Urine urobilinogen measurement by automated test strip (mass/volume)" /> <statusCode code="completed" /> <effectiveTime value=" " /> <value unit="" xsi:type="PQ" value="NORMAL" /> < referenceRange> <observationRange> <text>NORMAL</text> </observationRange> </referenceRange> </observation> </component> <component> <observation moodCode="EVN" classCode ="OBS"> <templateId root="2.16.840.1.981885.10...4.2" /> < id nullFlavor="NA" /> <code codeSystem="local" code="5799-2" displayName="Urine leukocyte esterase detection by dipstick" /> < statusCode code="completed" /> <effectiveTime value="" /> <value unit="" xsi:type="PQ" value="NEGATIVE" /> < referenceRange> <observationRange> <text>NEGATIVE</text > </observationRange> </referenceRange> </observation > </component> <component> <observation moodCode="EVN" classCode="OBS"> <templateId root="216.840.1.445363.10..22.4.2" /> <id nullFlavor="NA" /> <code codeSystem="local" code="13666-1 " displayName="Automated urine sediment erythrocyte count by microscopy (number/ high power field)" /> <statusCode code="completed" /> < effectiveTime value="" /> <value unit="" xsi:type="PQ" value="RARE" /> <referenceRange> <observationRange> <text>NRG</text> </observationRange> </referenceRange > </observation> </component> <component> <observation moodCode="EVN" classCode="OBS"> <templateId root= "216.840.1.379713.10..4.2" /> <id nullFlavor="NA" /> < code codeSystem="local" code="5821-4" displayName="Automated urine sediment leukocyte count by microscopy (number/high power field)" /> < statusCode code="completed" /> <effectiveTime value="" /> <value unit="" xsi:type="PQ" value="RARE" /> <referenceRange> <observationRange> <text>NRG</text> </ observationRange> </referenceRange> </observation> </ component> <component> <observation moodCode="EVN" classCode="OBS"> <templateId root="16.840.1.387275.10..22.4.2" /> <id nullFlavor="NA" /> <code codeSystem="local" code="52958-1" displayName= "Bacteria detection in urine sediment by light microscopy" /> < statusCode code="completed" /> <effectiveTime value="" /> <value unit="" xsi:type="PQ" value="NEGATIVE" /> < referenceRange> <observationRange> <text>NRG</text> </observationRange> </referenceRange> </observation> </component> <component> <observation moodCode="EVN" classCode= "OBS"> <templateId root="10.29.840.1.775179.10.20.22.4.2" /> < id nullFlavor="NA" /> <code codeSystem="local" code="73594-2" displayName="Squamous epithelial cells detection in urine sediment by light microscopy" /> <statusCode code="completed" /> <effectiveTime value="[id number]" /> <value unit="" xsi:type="PQ" value="NONE" /> <referenceRange> <observationRange> <text>NRG</ text> </observationRange> </referenceRange> </ observation> </component> <component> <observation moodCode= "EVN" classCode="OBS"> <templateId root="840.1.700502.10.20.22.4.2 " /> <id nullFlavor="NA" /> <code codeSystem="local" code= "27813-4" displayName="Crystals detection in urine sediment by light microscopy " /> <statusCode code="completed" /> <effectiveTime value= "[id number]" /> <value unit="" xsi:type="PQ" value="NONE" /> <referenceRange> <observationRange> <text>NRG</text> </observationRange> </referenceRange> </observation> </component> <component> <observation moodCode="EVN" classCode ="OBS"> <templateId root="10.29.840.1.641920.10.20.22.4.2" /> < id nullFlavor="NA" /> <code codeSystem="local" code="60466-1" displayName="Casts detection in urine sediment by light microscopy" /> <statusCode code="completed" /> <effectiveTime value="[id number]" /> <value unit="" xsi:type="PQ" value="NONE" /> <referenceRange > <observationRange> <text>NRG</text> </ observationRange> </referenceRange> </observation> </ component> <component> <observation moodCode="EVN" classCode="OBS"> <templateId root="2.16.840.1.115062.10..22.4.2" /> <id nullFlavor="NA" /> <code codeSystem="local" code="8247-9" displayName= "Mucus detection in urine sediment by light microscopy" /> <statusCode code="completed" /> <effectiveTime value="340749692822" /> < value unit="" xsi:type="PQ" value="NEGATIVE" /> <referenceRange> <observationRange> <text>NRG</text> </ observationRange> </referenceRange> </observation> </ component> <component> <observation moodCode="EVN" classCode="OBS"> <templateId root="2.16.840.1.329179.10..22.4.2" /> <id nullFlavor="NA" /> <code codeSystem="local" code="49843-2" displayName= "Complete urinalysis with reflex to culture" /> <statusCode code= "completed" /> <effectiveTime value="763100022132" /> <value unit="" xsi:type="PQ" value="NO" /> <referenceRange> < observationRange> <text>NRG</text> </observationRange> </referenceRange> </observation> </component> </ organizer> </entry></section> Encounters ACCT No. Visit Date/Time Discharge Status Pt. Type Provider Facility Loc./Unit Complaint [id number] 06/17/2017 13:00:00 06/17/2017 14:51:00 DIS Emergency Tomas Valenzuela DO [facility]O [facility] W.EDS [id number] 09/28/2016 10:28:00 09/28/2016 17:45:00 DIS Emergency Azul FRAZIER, Vishal Martinez [facility] W.LEO [id number] 10/03/2011 13:27:00 Inpatient [id number] 08/05/2017 00:26:00 Document Registration [id number] 03/23/2017 15:49:00 Document Registration [id number] 12/27/2017 16:41:00 12/27/2017 19:35:00 DIS Outpatient IGGY CLARK [facility] ER IV FLUIDS [id number] 12/13/2017 13:02:00 12/13/2017 17:49:00 DIS Outpatient SELIN DUNCAN APRN [facility] ER MENTAL EVAL [id number] 08/05/2017 00:26:00 08/05/2017 23:59:59 CLS Emergency Glen,, Jose [facility] ED Head pain [id number] 05/07/2017 13:33:00 05/07/2017 23:59:59 CLS Emergency Bruey, Korin [facility] on [facility] ED abd pain [id number] 03/23/2017 15:49:00 03/29/2017 14:50:00 DIS Inpatient Mini, Laney [facility] on [facility] F8SE ams, leukocytosis [id number] 05/08/2017 05:18:14 Document Registration [id number] 03/30/2017 05:16:25 Document Registration [id number] 03/25/2017 05:16:24 Document Registration [id number] 03/24/2017 05:15:39 Document Registration
[2018-01-02] MEDS ORDERED: NS IV 1000 ML 1,000 ML IV ONE (11:36)
[2018-01-02] MEDS ORDERED: PROPOFOL DRIP (ICU) 100 ML IV ONE (11:42)
[2018-01-02] MEDS ORDERED: RT-ALBUTEROL/IPRATROPIUM 3 ML (DUONEB) VIAL ONE ×2 (11:51→13:32)
--- NOTE | 2018-01-02 12:20 | Diagnostic Imaging Report ---
EXAM: CHEST 1 VIEW, AP/PA ONLY INDICATION: Respiratory distress. COMPARISON: Chest x-ray 08/05/2017. FINDINGS: Normal heart size and pulmonary vascularity. ETT tip between the level of the clavicles and virgilio. NG tube tip and side-port overlying the stomach. No dense consolidation, pleural effusion or pneumothorax. No acute osseous findings. IMPRESSION: 1. New ETT and NGT in the expected positions. 2. No acute cardiopulmonary findings. Dictated by: Dictated on workstation # [id number]
[2018-01-02 12:23] LABS: ABG BASE EXCESS -1.2 MMOL/L (-2.5-2.5); ABG OXYGEN SATURATION 100 % (94-100); ABG PCO2 59 MMHG (35-45); ABG PO2 246 MMHG (79-93); ABG TCO2 26.8 MMOL/L (21.0-31.0)
[2018-01-02] MEDS ORDERED: NOREPINEPHRINE 4 MG/4 ML (LEVOPHED) AMP IV ONE (12:23)
[2018-01-02] MEDS ORDERED: NS (IVPB) 250 ML ONE (12:23)
[2018-01-02 12:24] LABS: ABG PH 7.25 (7.37-7.43); ALLENS TEST POSITIVE; INSPIRED O2 100%; PATIENT TEMP 99.5; VENTILATOR YES
[2018-01-02 12:27] LABS: BASOPHILS % (AUTO) 0 % (0-10); EOSINOPHILS % (AUTO) 0 % (0-10); HEMATOCRIT 42 % (40-54); HEMOGLOBIN 12.9 G/DL (13.3-17.7); LYMPHOCYTES % (AUTO) 7 % (12-44); MEAN CORPUSCULAR HEMOGLOBIN 30 PG (25-34); MEAN CORPUSCULAR HGB CONC 31 G/DL (32-36); MEAN CORPUSCULAR VOLUME 97 FL (80-99); MEAN PLATELET VOLUME 10.7 FL (7.4-10.4); MONOCYTES # (AUTO) 1.4 X 10^3 (0.0-1.0); MONOCYTES % (AUTO) 10 % (0-12); NEUTROPHILS # (AUTO) 11.7 X 10^3 (1.8-7.8); NEUTROPHILS % (AUTO) 83 % (42-75); PLATELET COUNT 119 10^3/uL (130-400); RED BLOOD COUNT 4.35 10^6/uL (4.35-5.85); RED CELL DISTRIBUTION WIDTH 13.8 % (10.0-14.5); WHITE BLOOD COUNT 14.2 10^3/uL (4.3-11.0)
--- NOTE | 2018-01-02 12:35 | ED General ---
General Chief Complaint: Respiratory Problems Stated Complaint: RESPIRATORY PROBLEMS Source of Information: Patient Exam Limitations: No Limitations History of Present Illness Date Seen by Provider: Jan 02, 2018 Time Seen by Provider: 11:19 Initial Comments Here by EMS from senior living with report of shortness of air and altered mental status. Patient had O2 saturations in the 70s on their arrival. He is placed on BiPAP due to initial finding of significant crackles on respiratory distress. O2 saturations only increased to the upper 80s. Patient's not responding. Timing/Duration: 1-3 Hours Severity: Severe Associated Systoms: Fever/Chills, Shortness of Air Allergies and Home Medications Allergies Coded Allergies: No Known Drug Allergies (Unverified , 12/13/17) Home Medications Unable to Obtain Active Prescriptions or Reported Meds Patient Home Medication List Home Medication List Reviewed: Yes Review of Systems Constitutional: see HPI, fever Respiratory: short of breath Unable to obtain due to altered mental status and severe clinical condition. Past Hxvuigi-Nwpwdc-Qindpm Hx Past Med/Social Hx: Reviewed Nursing Past Med/Soc Hx Patient Social History Smoking Status: Unknown if Ever Smoked Recent Foreign Travel: No Contact w/Someone Who Travel: No Past Medical History Respiratory: No Cardiac: Yes Coronary Artery Disease, High Cholesterol, Hypertension Neurological: Yes Dementia, Stroke, TIA Genitourinary: Yes Prostate Problems Gastrointestinal: No Musculoskeletal: No Integumentary: No Family Medical History Reviewed Nursing Family Hx No Pertinent Family Hx Physical Exam-Suspected Sepsis Physical Exam Vital Signs Vital Signs - First Documented 01/02/18 12:29 Pulse 81 Resp 18 Pulse Ox 97 FiO2 100 Capillary Refill : General Appearance: WD/WN, Severe Distress HEENT: PERRL/EOMI, Other (mucous membranes dry with mucus within the mouth.) Neck: Non Tender, Supple Respiratory: Crackles, Decreased Breath Sounds, Expiration, Inspiration, Respiratory Distress Cardiovascular: Regular Rate, Rhythm, No Murmur Gastrointestinal: Non Tender, Soft Back: Normal Inspection, No CVA Tenderness, No Vertebral Tenderness Extremity: Normal Range of Motion, Non Tender, Pedal Edema Neurologic/Psychiatric: Other (unresponsive with occasional spontaneous cough.) Skin: normal color, warm/dry Focused Exam Lactate Level 01/02/18 12:37: Lactic Acid Level 0.88 Lactic Acid Level Laboratory Tests Test 01/02/18 12:37 Lactic Acid Level 0.88 MMOL/L (0.50-2.00) Procedures/Interventions Lumen: triple Central Line Procedure: betadine prep, sterile drapes applied, sterile dressing applied Position: internal jugular (R) Complications: none Post Position: sutured, good blood return, position confirmed w/ CXR Placed via ultrasound guidance times one stick via Seldinger technique. No complications. Date of ETT Placement: Jan 02, 2018 Time of ETT Placement: 11:27 Intubation Method: orotracheal Tube Size: 8 Medications: Etomidate, Fentanyl, Succinylcholine, Versed Positive End Tide CO2: Yes Breath Sounds after Intubation: bilateral-equal Intubation Complications: no complications Post Intubation Xray: Yes tube in good position Progress/Results/Core Measures Suspected Sepsis SIRS Temperature: Pulse: Respiratory Rate: Laboratory Tests 01/02/18 12:21: White Blood Count 14.2H Blood Pressure / Mean: 01/02/18 12:37: Lactic Acid Level 0.88 Laboratory Tests 01/02/18 12:21: Creatinine 1.18, INR Comment 1.4, Platelet Count 119L, Total Bilirubin 0.5 01/02/18 13:06: Creatinine 1.19 Results/Orders Lab Results Laboratory Tests Test 01/02/18 12:17 01/02/18 12:21 01/02/18 12:37 01/02/18 13:06 Range/Units Blood Gas Puncture Site LEFT RADIAL Blood Gas Patient Temperature 99.5 Arterial Blood pH 7.25 *L 7.37-7.43 Arterial Blood Partial Pressure CO2 59 H 35-45 MMHG Arterial Blood Partial Pressure O2 246 H 79-93 MMHG Arterial Blood HCO3 25 23-27 MMOL/L Arterial Blood Total CO2 26.8 21.0-31.0 MMOL/L Arterial Blood Oxygen Saturation 100 94-100 % Arterial Blood Base Excess -1.2 -2.5-2.5 MMOL/L Ralph Test POSITIVE Blood Gas Ventilator Setting YES Blood Gas Inspired Oxygen 100% White Blood Count 14.2 H 4.3-11.0 10^3/uL Red Blood Count 4.35 4.35-5.85 10^6/uL Hemoglobin 12.9 L 13.3-17.7 G/DL Hematocrit 42 40-54 % Mean Corpuscular Volume 97 80-99 FL Mean Corpuscular Hemoglobin 30 25-34 PG Mean Corpuscular Hemoglobin Concent 31 L 32-36 G/DL Red Cell Distribution Width 13.8 10.0-14.5 % Platelet Count 119 L 130-400 10^3/uL Mean Platelet Volume 10.7 H 7.4-10.4 FL Neutrophils (%) (Auto) 83 H 42-75 % Lymphocytes (%) (Auto) 7 L 12-44 % Monocytes (%) (Auto) 10 0-12 % Eosinophils (%) (Auto) 0 0-10 % Basophils (%) (Auto) 0 0-10 % Neutrophils # (Auto) 11.7 H 1.8-7.8 X 10^3 Lymphocytes # (Auto) 1.0 1.0-4.0 X 10^3 Monocytes # (Auto) 1.4 H 0.0-1.0 X 10^3 Eosinophils # (Auto) 0.0 0.0-0.3 10^3/uL Basophils # (Auto) 0.0 0.0-0.1 10^3/uL Neutrophils % (Manual) 90 % Lymphocytes % (Manual) 7 % Monocytes % (Manual) 3 % Prothrombin Time 17.5 H 12.2-14.7 SEC INR Comment 1.4 0.8-1.4 Activated Partial Thromboplast Time 27 24-35 SEC Sodium Level 164 *H 164 *H 135-145 MMOL/L Potassium Level 3.8 3.9 3.6-5.0 MMOL/L Chloride Level 133 H 132 H 98-107 MMOL/L Carbon Dioxide Level 26 25 21-32 MMOL/L Anion Gap 5 7 5-14 MMOL/L Blood Urea Nitrogen 48 H 47 H 7-18 MG/DL Creatinine 1.18 1.19 0.60-1.30 MG/DL Estimat Glomerular Filtration Rate > 60 > 60 BUN/Creatinine Ratio 41 39 Glucose Level 99 98 70-105 MG/DL Calcium Level 7.7 L 7.7 L 8.5-10.1 MG/DL Total Bilirubin 0.5 0.1-1.0 MG/DL Aspartate Amino Transf (AST/SGOT) 25 5-34 U/L Alanine Aminotransferase (ALT/SGPT) 45 0-55 U/L Alkaline Phosphatase 37 L 40-136 U/L C-Reactive Protein High Sensitivity 5.18 H 0.00-0.50 MG/DL B-Type Natriuretic Peptide 49.5 <100.0 PG/ML Total Protein 4.6 L 6.4-8.2 GM/DL Albumin 2.6 L 3.2-4.5 GM/DL Lactic Acid Level 0.88 0.50-2.00 MMOL/L My Orders Orders - ANA CRISTINA ARIZA MD Cbc With Automated Diff (01/02/18 11:36) Comprehensive Metabolic Panel (01/02/18 11:36) Lactic Acid Analyzer (01/02/18 11:36) Blood Culture (01/02/18 11:36) Sputum Culture (01/02/18 11:36) Ua Culture If Indicated (01/02/18 11:36) Protime With Inr (01/02/18 11:36) Partial Thromboplastin Time (01/02/18 11:36) Chest 1 View, Ap/Pa Only (01/02/18 11:36) O2 (01/02/18 11:36) Saline Lock/Iv-Start (01/02/18 11:36) Ekg Tracing (01/02/18 11:36) Vital Signs Adult Sepsis Patie Q1H (01/02/18 11:36) Remove Rings In Anticipation O (01/02/18 11:36) Ns Iv 1000 Ml (Sodium Chloride 0.9%) (01/02/18 11:36) BNP (01/02/18 11:36) Hs C Reactive Protein (01/02/18 11:36) Propofol Drip (Icu) (Diprivan Drip (Icu) (01/02/18 11:45) Propofol Drip (Icu) (Diprivan Drip (Icu) (01/02/18 11:42) Albuterol/Ipra Inhalation Soln (Duoneb I (01/02/18 11:51) Arterial Blood Gas (01/02/18 12:17) Norepinephrine (Levophed) (01/02/18 12:23) Manual Differential (01/02/18 12:21) Ns (Ivpb) (Sodium Chloride 0.9%) (01/02/18 12:23) Basic Metabolic Panel (01/02/18 13:04) Chest 1 View, Ap/Pa Only (01/02/18 13:04) Albuterol/Ipra Inhalation Soln (Duoneb I (01/02/18 13:32) Piperacillin Sodium/Tazobactam (Zosyn Vi (01/02/18 14:45) Vancomycin Injection (Vancomycin Injecti (01/02/18 14:45) Vancomycin Injection (Vancomycin Injecti (01/02/18 14:33) Piperacillin Sodium/Tazobactam (Zosyn Vi (01/02/18 14:34) Ns (Ivpb) (Sodium Chloride 0.9% Ivpb Bag (01/02/18 14:34) Medications Given in ED Current Medications Medications Dose Ordered Sig/Danni Route Start Time Stop Time Status Last Admin Dose Admin Albuterol/ Ipratropium 3 ml STK-MED ONCE .ROUTE 01/02/18 11:51 01/02/18 11:55 DC 01/02/18 12:51 3 ML Sodium Chloride 1,000 ml @ 0 mls/hr Q0M ONCE IV 01/02/18 11:36 01/02/18 11:38 DC 01/02/18 13:13 0 MLS/HR Vital Signs/I&O 01/02/18 12:29 Pulse 81 Resp 18 Pulse Ox 97 FiO2 100 Capillary Refill : Progress Note : Progress Note Seen and evaluated. IV by EMS. Patient on BiPAP without improvement in his O2 saturations. Due to the obtunded state, intubation indicated. Patient noted to be full code on senior living documentation. Intubated by me, regarding conditions using etomidate and succinylcholine. Second IV initiated. Postintubation sedation with Versed and fentanyl followed by propofol. Normal saline 1 L bolus initiated and second liter initiated. DuoNeb initiated. Patient was hypertensive initially and then normotensive. Became hypotensive. Patient will get 3 L of normal saline total which will exceed the 30 mL/kg IV bolus required 4 septic shock. Sepsis order set has been initiated. 1237: Blood pressure 92/60 with heart rate of 80 and O2 sat 98 percent on vent at rate of 18 with tidal volume of 500 and PEEP of 5. Central line to be initiated. 1315: Central line placed. Tolerated procedure well. X-ray ordered. 1335: Patient was doing better but now has acutely decompensated. O2 saturations declining into the 70s. Patient taken off that and bagged via bag- valve-mask and O2 sats return. Repeat chest x-ray ordered. 1357: Did get a fair amount of mucus while suctioning but still having difficulty. I discussed the case with Dr. Cuello and he will come see the patient in the ER for bronchoscopy. RT to set up bronchoscopy. I did change vent settings to increase his peep to 10 from 8 and continued rate of 18 with tidal line 500. This did improve his saturations overall. 1425: Dr. Cuello in the ER evaluating. 1447: Endoscopy in progress and patient has a significant amount of mucus within the lungs which is the likely cause of his problems. Patient is on Levophed. We have changed that from 10 to 5 g and blood pressure is improved to 128/75 with heart rate is 77 and O2 sat are 98 percent at this time. Zosyn 4.5 g IV as well as vancomycin 1 g IV ordered and is infusing currently. Patient has had a total of 4 L of normal saline and he still has had very little urine output. Sodium and chloride levels are both high and indicate significant dehydration. Patient will likely require more fluids. Patient to be admitted to the ICU with Dr. Cuello on consult. 1451: I did discuss the case with Dr. Adler, on-call for Dr. Huynh and she accepts patient for admission, inpatient status. Patient is in critical condition but improved after bronchoscopy. 1506: I attest a focused exam at this time. Patient has scant urine output. Heart rate 77 with O2 sat on previous stent settings. Lopressor 97/67 and patient is on Levophed and now at 10 g. Improved bilateral lung sounds. Admit to ICU. 1516: Post bronchoscopy chest x- ray shows greatly improved aeration of both lung gregory. ECG Initial ECG Impression Date: Jan 02, 2018 Initial ECG Impression Time: 12:30 Initial ECG Rate: 81 Initial ECG Rhythm: Normal Sinus Initial ECG Comparisson: No Previous ECG Available Comment Sinus rhythm with PAC. Normal axis. No evidence of ST elevation TX. Flat T waves throughout. No previous available for comparison. Interpreted by me. Diagnostic Imaging Diagonstic Imaging: Xray Plain Films/CT/US/NM/MRI: chest Comments NAME: STAR WALLIS [facility] REC#: [id number] PT STATUS: REG ER : 1950 PHYSICIAN: ANA CRISTINA ARIZA MD ADMIT DATE: 01/02/18/ER Signed Date of Exam: 04/22/18 CHEST 1 VIEW, AP/PA ONLY EXAM: CHEST 1 VIEW, AP/PA ONLY INDICATION: Respiratory distress. COMPARISON: Chest x-ray 08/05/2017. FINDINGS: Normal heart size and pulmonary vascularity. ETT tip between the level of the clavicles and virgilio. NG tube tip and side-port overlying the stomach. No dense consolidation, pleural effusion or pneumothorax. No acute osseous findings. IMPRESSION: 1. New ETT and NGT in the expected positions. 2. No acute cardiopulmonary findings. Dictated by: Dictated on workstation # [id number] Dict: 01/02/18 1216 Trans: 01/02/18 1228 Interpreted by: RENE GOULD MD Electronically signed by: RENE GOULD MD 01/02/18 1228 Critical Care Note Critical Care Start Time: 11:19 Stop Time: 15:15 Total Time (minutes) 90 Departure Communication (Admissions) Time/Spoke to Admitting Phy: 04:51 Time/Spoke to Consulting Phy: 13:57 Impression Primary Impression: Respiratory failure Qualified Codes: J96.01 - Acute respiratory failure with hypoxia; J96.02 - Acute respiratory failure with hypercapnia Additional Impression: Septic shock Disposition: ADMITTED INPATIENT Condition: Critical Admissions Decision to Admit Reason: Admit from ER (General) Decision to Admit/Date: Jan 02, 2018 Time/Decision to Admit Time: 13:57 Departure-Patient Inst. Referrals: FELICIA HUYNH DO (PCP/Family) Primary Care Physician Scripts Unable to Obtain Active Prescriptions or Reported Meds ANA CRISTINA ARIZA MD Jan 02, 2018 12:34
[2018-01-02 12:37] LABS: INR 1.4 (0.8-1.4); PROTHROMBIN TIME PATIENT 17.5 SEC (12.2-14.7)
[2018-01-02 12:44] LABS: ALANINE AMINOTRANSFERASE 45 U/L (0-55); ALBUMIN 2.6 GM/DL (3.2-4.5); ALKALINE PHOSPHATASE 37 U/L (40-136); BILIRUBIN,TOTAL 0.5 MG/DL (0.1-1.0); BUN/CREATININE RATIO 41; CALCIUM 7.7 MG/DL (8.5-10.1); CARBON DIOXIDE 26 MMOL/L (21-32); CHLORIDE 133 MMOL/L (98-107); CREATININE SERUM 1.18 MG/DL (0.60-1.30); GFR ESTIMATED > 60; GLUCOSE 99 MG/DL (70-105); POTASSIUM 3.8 MMOL/L (3.6-5.0); TOTAL PROTEIN 4.6 GM/DL (6.4-8.2)
[2018-01-02 12:47] LABS: SODIUM 164 MMOL/L (135-145)
[2018-01-02 13:03] LABS: LYMPHOCYTES % (MANUAL) 7 %; MONOCYTES % (MANUAL) 3 %; NEUTROPHILS % (MANUAL) 90 %
--- NOTE | 2018-01-02 13:28 | Diagnostic Imaging Report ---
INDICATION: Central line placement. FINDINGS: There has been interval placement of a right-sided jugular line. Tip is in the SVC several centimeters above the right atrium. The ET tube and OG tube remain in place. The lungs are well expanded. IMPRESSION: Central line tip is in the SVC. Dictated by: Dictated on workstation # [id number]
[2018-01-02 13:40] LABS: BUN/CREATININE RATIO 39; CALCIUM 7.7 MG/DL (8.5-10.1); CARBON DIOXIDE 25 MMOL/L (21-32); CHLORIDE 132 MMOL/L (98-107); CREATININE SERUM 1.19 MG/DL (0.60-1.30); GFR ESTIMATED > 60; GLUCOSE 98 MG/DL (70-105); POTASSIUM 3.9 MMOL/L (3.6-5.0)
[2018-01-02 13:41] LABS: SODIUM 164 MMOL/L (135-145)
--- NOTE | 2018-01-02 14:00 | Diagnostic Imaging Report ---
EXAM: CHEST 1 VIEW, AP/PA ONLY INDICATION: Respiratory distress. Hypoxia. COMPARISON: Chest radiograph 01/02/2018. FINDINGS: Cardiomegaly. Increasing consolidation in the left lung base. ETT tip midway between the level of the clavicles and virgilio. Right IJ CVC tip mid SVC. NG tube tip and side-port overlying the stomach. No pneumothorax. No acute osseous findings. IMPRESSION: 1. Support lines in the expected positions, including the ETT. 2. Increasing consolidation in the left lung base. Dictated by: Dictated on workstation # [id number]
[2018-01-02] MEDS ORDERED: VANCOMYCIN 1000 MG/VIAL ONE (14:33)
[2018-01-02] MEDS ORDERED: NS (IVPB) 100 ML ONE (14:34)
[2018-01-02] MEDS ORDERED: PIPERACILLIN/TAZO 4.5 GM VIAL (ZOSYN) IV ONE (14:34)
[2018-01-02] MEDS ORDERED: VANCOMYCIN INJECTION 1,000 MG in NS (IVPB) 250 ML IV ONE (14:45)
[2018-01-02] MEDS ORDERED: PIPERACILLIN SODIUM/TAZOBACTAM 4.5 GM in D5W 100 ML IVPB 100 ML IV ONE (14:45)
--- OUTSIDE RECORDS SUMMARY | 2018-01-02 14:47 | XMS REPORT | Continuity of Care Document ---
Author Author [facility] Organization [facility] Address Unknown Phone Unavailable Allergies Active Description Code Type Severity Reaction Onset Reported/Identified Relationship to Patient Clinical Status Yes Penicillins Penicillins Drug Allergy Moderate RASH 10/07/2011 Yes No Known Allergies NKMA N/A N/A 03/23/2017 Yes penicillin NKMA N/A [id number] 05/07/2017 Yes No Known Drug Allergies [id number] Drug Allergy Unknown N/A 12/13/2017 Medications Medication [...] and giddiness 05/10/2017 Bass Denise Final Z79.01 long-term (current) use of anticoagulants 05/10/2017 Bass Denise Final Z86.73 Personal history of transient ischemic attack (TIA), and cerebral infarctio 05/10/2017 Kali, Korin Final Z87.891 Personal history of nicotine dependence 12/15/2017 SELIN DUNCAN [employer] Ot F03.91 UNSPECIFIED DEMENTIA WITH BEHAVIORAL DIS 12/15/2017 SELIN DUNCAN [employer] Ot G30.9 ALZHEIMER'S DISEASE, UNSPECIFIED 12/15/2017 SELIN DUNCAN [employer] Ot R45.1 RESTLESSNESS AND AGITATION 12/29/2017 MEENAKSHI CLARKEN L Ot E78.00 PURE HYPERCHOLESTEROLEMIA, UNSPECIFIED 12/29/2017 IGGY CLARK L Ot E86.9 VOLUME DEPLETION, UNSPECIFIED 12/29/2017 IGGY CLARK L Ot E87.0 HYPEROSMOLALITY AND HYPERNATREMIA 12/29/2017 IGGY CLARK L Ot F03.90 UNSPECIFIED DEMENTIA WITHOUT BEHAVIORAL 12/29/2017 MEENAKSHI CLARKEN L Ot I10 ESSENTIAL (PRIMARY) HYPERTENSION 12/29/2017 IGGY CLARK Ot I25.10 ATHSCL HEART DISEASE OF [place] CORONARY 12/29/2017 IGGY CLARK Ot Z86.73 PRSNL [...] CLARK Ot I25.10 ATHSCL HEART DISEASE OF [place] CORONARY 12/29/2017 IGGY CLARK Ot Z86.73 PRSNL HX OF TIA (TIA), AND CEREB INFRC W Procedures There is no data. <section xmlns="urn:hl7-org:v3" xmlns:xsi="http:// www.w3.org/2001/XMLSchema-instance"> <templateId root= "[id number].3" /> <templateId root= "2.16.840.1.251956.10.20.22.2.3.1" /> <code codeSystemName="LYNDONINC" codeSystem= "2.16.840.1.429267.6.1" code="34497-0" displayName="Results" /> <title>Results< /title> <text> <table> <thead> [...] <td>Protein</td> <td>Negative NA</td> <td>Negative</td> </tr> <tr> <td>Specific [place]</td> <td>1.020 NA</td> <td>1.003- 1.030</td> </tr> <tr> <td>UA [...] <td>627 Cells/mm3</td> <td>540 -1600</td> </tr> <tr> <td>CD4 [place] T Cell</td> <td>65.3 %</td> <td>29.0-59.0</td> </tr> <tr> <td>CD4:CD8 Ratio</td> <td>4.98 </td> <td>1.00-2.90</td> </tr> <tr> <td>CD56</td> <td>12.1 %</td> <td>6.0-29.0</td> </tr> <tr> <td>CD56 Absolute</ td> <td>116 Cells/mm3</td> <td>100-600</td> </tr> <tr> <td>CD8 Absolute</td> <td>126 Cells/mm3</td> <td>300-900</td> </tr> <tr> <td>CD8 Suppressor T Cells</ td> <td>13.1 %</td> <td>18.0-36.0</td> </tr> <tr> <td>Lymphocytes, Absolute</td> <td>960 mm3</td> <td>6240-9275</td> </tr> <tr> <th colspan="10">CBC With Platelet No [...] <td>Pos 1+ NA</td> <td>Negative</td> </tr> <tr> <td>Specific [place]</td> <td>1.025 NA</td> <td>1.003-1.030</ td> </tr> <tr> <td>UA [...] <td>Protein</td> <td>Negative NA</td> <td>Negative</td> </tr> <tr> <td>Specific [place]</td> <td><1.003 NA</td> <td> 1.003-1.030</td> </tr> <tr> <td>UA [...] Negative NA</td> <td>Negative</td> </tr> <tr> < td>Specific [place]</td> <td>1.020 NA</td> <td>1.003-1.030</td > </tr> <tr> <td>UA [...] <td>Protein</td> <td>Negative NA</td> <td>Negative</td> </tr> <tr> <td>Specific [place]</ td> <td>1.030 NA</td> <td>1.003-1.030</td> </tr> <tr> <td>UA [...] <td>4.2 g/dL</td> <td>3.2-4.5</td> </ tr> <tr> <th colspan="10">[id number] - 12/13/17 13:18</th> < /tr> <tr> <td>[id number]</td> <td>55.5 ug/mL</td> <td>50.0-100.0</td> </tr> <tr> <th colspan="10"> [...] reflex to culture</td> <td>NO </td> <td>NRG</td> </tr> <tr> < colspan="10">Arterial blood gas measurement - 01/02/18 12:17</ th> </tr> <tr> <td>Blood pCO2</td> <td>59 mm[Hg] </td> <td>35-45</td> </tr> <tr> <td>Blood pO2</ td> <td>246 mm[Hg]</td> <td>79-93</td> </tr> <tr > <td>Arterial blood bicarbonate measurement (moles/volume)</td> <td>25 mmol/L</td> <td>23-27</td> </tr> <tr> <td>Arterial blood base excess by calculation</td> <td>-1.2 mmol/L</ td> <td>-2.5-2.5</td> </tr> <tr> <td>Arterial blood oxygen saturation measurement</td> <td>100 %</td> < td>94-100</td> </tr> <tr> <td>* Inhaled oxygen flow rate< /td> <td>100% </td> <td>NRG</td> </tr> <tr> <td>Arterial blood pH measurement with patient temperature correction< /td> <td>7.25 </td> <td>7.37-7.43</td> </tr> <tr > <td>Arterial blood carbon dioxide, total measurement (moles/volume)</ td> <td>26.8 mmol/L</td> <td>21.0-31.0</td> </tr> <tr> <td>Body site</td> <td>LEFT RADIAL </td> <td> NRG</td> </tr> <tr> <td>Assessment of wrist artery patency prior to arterial puncture</td> <td>POSITIVE </td> <td >NRG</td> </tr> <tr> <td>Setting of ventilation mode</td > <td>YES </td> <td>NRG</td> </tr> <tr> <td>Measurement of body temperature</td> <td>99.5 </td> <td> NRG</td> </tr> <tr> < colspan="10">Complete blood count (CBC) with automated white blood cell (WBC) differential - 01/02/18 12:21< /th> </tr> <tr> <td>Blood leukocytes automated count ( number/volume)</td> <td>14.2 10*3/uL</td> <td>4.3-11.0</td> </tr> <tr> <td>Blood erythrocytes automated count (number/ volume)</td> <td>4.35 10*6/uL</td> <td>4.35-5.85</td> < /tr> <tr> <td>Venous blood hemoglobin measurement (mass/volume)< /td> <td>12.9 g/dL</td> <td>13.3-17.7</td> </tr> <tr> <td>Blood hematocrit (volume fraction)</td> <td>42 &#37 ;</td> <td>40-54</td> </tr> <tr> <td>Automated erythrocyte mean corpuscular volume</td> <td>97 [foz_us]</td> <td>80-99</td> </tr> <tr> <td>Automated erythrocyte mean corpuscular hemoglobin (mass per erythrocyte)</td> <td>30 pg</td> <td>25-34</td> </tr> <tr> <td>Automated erythrocyte mean corpuscular hemoglobin concentration measurement (mass/volume)</td> <td>31 g/dL</td> <td>32-36</td> </tr> <tr> < td>Automated erythrocyte distribution width ratio</td> <td>13.8 %</ td> <td>10.0-14.5</td> </tr> <tr> <td>Automated blood platelet count (count/volume)</td> <td>119 10*3/uL</td> <td>130-400</td> </tr> <tr> <td>Automated blood platelet mean volume measurement</td> <td>10.7 [foz_us]</td> <td>7.4- 10.4</td> </tr> <tr> <td>Automated blood neutrophils/100 leukocytes</td> <td>83 %</td> <td>42-75</td> </tr> <tr> <td>Automated blood lymphocytes/100 leukocytes</td> <td>7 %</td> <td>12-44</td> </tr> <tr> < td>Blood monocytes/100 leukocytes</td> <td>10 %</td> <td>0 -12</td> </tr> <tr> <td>Automated blood eosinophils/100 leukocytes</td> <td>0 %</td> <td>0-10</td> </tr> <tr> <td>Automated blood basophils/100 leukocytes</td> < td>0 %</td> <td>0-10</td> </tr> <tr> <td> Blood neutrophils automated count (number/volume)</td> <td>11.7 10*3</ td> <td>1.8-7.8</td> </tr> <tr> <td>Blood lymphocytes automated count (number/volume)</td> <td>1.0 10*3</td> <td>1.0-4.0</td> </tr> <tr> <td>Blood monocytes automated count (number/volume)</td> <td>1.4 10*3</td> <td>0.0 -1.0</td> </tr> <tr> <td>Automated eosinophil count</td> <td>0.0 10*3/uL</td> <td>0.0-0.3</td> </tr> <tr > <td>Automated blood basophil count (count/volume)</td> <td> 0.0 10*3/uL</td> <td>0.0-0.1</td> </tr> <tr> < th colspan="10">PT panel in platelet poor plasma by coagulation assay - 12:21</th> </tr> <tr> <td>Prothrombin time (PT) in platelet poor plasma by coagulation assay</td> <td>17.5 s</td> <td>12.2-14.7</td> </tr> <tr> <td>INR in platelet poor plasma or blood by coagulation assay</td> <td>1.4 </td> <td> 0.8-1.4</td> </tr> <tr> <th colspan="10">Activated partial thromboplastin time (aPTT) in platelet poor plasma bycoagulation assay - 01/02/18 12:21</th> </tr> <tr> <td>Activated partial thromboplastin time (aPTT) in platelet poor plasma bycoagulation assay</td> <td>27 s</td> <td>24-35</td> </tr> <tr> < th colspan="10">Comprehensive metabolic panel - 01/02/18 12:21</th> </tr > <tr> <td>Serum or plasma sodium measurement (moles/volume)</td > <td>164 mmol/L</td> <td>135-145</td> </tr> <tr > <td>Serum or plasma potassium measurement (moles/volume)</td> <td>3.8 mmol/L</td> <td>3.6-5.0</td> </tr> <tr> <td>Serum or plasma chloride measurement (moles/volume)</td> <td> 133 mmol/L</td> <td>98-107</td> </tr> <tr> <td> Carbon dioxide</td> <td>26 mmol/L</td> <td>21-32</td> < /tr> <tr> <td>Serum or plasma anion gap determination (moles/ volume)</td> <td>5 mmol/L</td> <td>5-14</td> </tr> <tr> <td>Serum or plasma urea nitrogen measurement (mass/volume)</ td> <td>48 mg/dL</td> <td>7-18</td> </tr> <tr> <td>Serum or plasma creatinine measurement (mass/volume)</td> <td>1.18 mg/dL</td> <td>0.60-1.30</td> </tr> <tr> <td>Serum or plasma urea nitrogen/creatinine mass ratio</td> <td>41 </td> <td>NRG</td> </tr> <tr> <td>Serum or plasma creatinine measurement with calculation of estimated glomerular filtration rate</td> <td>> </td> <td>NRG</td> </tr> <tr> <td>Serum or plasma glucose measurement (mass/volume)</td > <td>99 mg/dL</td> <td>70-105</td> </tr> <tr> <td>Serum or plasma calcium measurement (mass/volume)</td> <td >7.7 mg/dL</td> <td>8.5-10.1</td> </tr> <tr> <td >Serum or plasma total bilirubin measurement (mass/volume)</td> <td> 0.5 mg/dL</td> <td>0.1-1.0</td> </tr> <tr> <td> Serum or plasma alkaline phosphatase measurement (enzymatic activity/volume)</td > <td>37 U/L</td> <td>40-136</td> </tr> <tr> <td>Serum or plasma aspartate aminotransferase measurement (enzymatic activity/volume)</td> <td>25 U/L</td> <td>5-34</td> </ tr> <tr> <td>Serum or plasma alanine aminotransferase measurement (enzymatic activity/volume)</td> <td>45 U/L</td> < td>0-55</td> </tr> <tr> <td>Serum or plasma protein measurement (mass/volume)</td> <td>4.6 g/dL</td> <td>6.4-8.2</ td> </tr> <tr> <td>Serum or plasma albumin measurement ( mass/volume)</td> <td>2.6 g/dL</td> <td>3.2-4.5</td> </ tr> <tr> <th colspan="10">Serum or plasma C reactive protein measurement (mass/volume) - 01/02/18 12:21</th> </tr> <tr> <td>Serum or plasma C reactive protein measurement (mass/volume)</td> <td>5.18 mg/dL</td> <td>0.00-0.50</td> </tr> <tr> <th colspan="10">Serum or plasma lithium measurement (moles/volume) - 12:21</th> </tr> <tr> <td>BNP level</td> < td>49.5 pg/mL</td> <td><100.0</td> </tr> <tr> <th colspan="10">Blood manual differential performed detection - 01/02/18 12: 21</th> </tr> <tr> <td>Blood monocytes/100 leukocytes</td > <td>3 %</td> <td>NRG</td> </tr> <tr> <td>Manual blood segmented neutrophils/100 leukocytes</td> <td>90 %</td> <td>NRG</td> </tr> <tr> <td>Manual blood lymphocytes/100 leukocytes</td> <td>7 %</td> <td>NRG </td> </tr> <tr> <th colspan="10">Blood lactic acid measurement (moles/volume) - 01/02/18 12:37</th> </tr> <tr> <td>Blood lactic acid measurement (moles/volume)</td> <td>0.88 mmol /L</td> <td>0.50-2.00</td> </tr> <tr> <th colspan="10">Whole blood basic metabolic panel - 01/02/18 13:06</th> </tr > <tr> <td>Serum or plasma sodium measurement (moles/volume)</td > <td>164 mmol/L</td> <td>135-145</td> </tr> <tr > <td>Serum or plasma potassium measurement (moles/volume)</td> <td>3.9 mmol/L</td> <td>3.6-5.0</td> </tr> <tr> <td>Serum or plasma chloride measurement (moles/volume)</td> <td> 132 mmol/L</td> <td>98-107</td> </tr> <tr> <td> Carbon dioxide</td> <td>25 mmol/L</td> <td>21-32</td> < /tr> <tr> <td>Serum or plasma anion gap determination (moles/ volume)</td> <td>7 mmol/L</td> <td>5-14</td> </tr> <tr> <td>Serum or plasma urea nitrogen measurement (mass/volume)</ td> <td>47 mg/dL</td> <td>7-18</td> </tr> <tr> <td>Serum or plasma creatinine measurement (mass/volume)</td> <td>1.19 mg/dL</td> <td>0.60-1.30</td> </tr> <tr> <td>Serum or plasma urea nitrogen/creatinine mass ratio</td> <td>39 </td> <td>NRG</td> </tr> <tr> <td>Serum or plasma creatinine measurement with calculation of estimated glomerular filtration rate</td> <td>> </td> <td>NRG</td> </tr> <tr> <td>Serum or plasma glucose measurement (mass/volume)</td > <td>98 mg/dL</td> <td>70-105</td> </tr> <tr> <td>Serum or plasma calcium measurement (mass/volume)</td> <td >7.7 mg/dL</td> <td>8.5-10.1</td> </tr> </tbody> </table > </text> <entry> <organizer moodCode="EVN" classCode="BATTERY"> < templateId root="2.16.840.1.520621.10..22.4.1" /> <id nullFlavor="NA" /> <code codeSystem="local" code="CBCD" displayName="CBC W/DIFF" /> < statusCode code="completed" /> <component> <observation moodCode= "EVN" classCode="OBS"> <templateId root="2.16.840.1.555946.10..22.4.2 " /> <id nullFlavor="NA" /> <code codeSystem="local" code= "CBCCOM" displayName="COMMENT" /> <statusCode code="completed" /> <effectiveTime value="090620769720" /> <value unit="" xsi:type="PQ " value="REVIEWED" /> <referenceRange> <observationRange> <text /> </observationRange> </referenceRange> </observation> </component> <component> <observation moodCode="EVN" classCode="OBS"> <templateId root= "10.29.840.1.238841.10.20.22.4.2" /> <id nullFlavor="NA" /> < code codeSystem="local" code="DB" displayName="DOHLE BODIES" /> < statusCode code="completed" /> <effectiveTime value="" /> <value unit="" xsi:type="PQ" value="NOTED" /> <referenceRange > <observationRange> <text /> </ observationRange> </referenceRange> </observation> </ component> <component> <observation moodCode="EVN" classCode="OBS"> <templateId root="10.29.840.1.261924.10.22.4.2" /> <id nullFlavor="NA" /> <code codeSystem="local" code="GR#" displayName= "GRANULOCYTE #" /> <statusCode code="completed" /> < effectiveTime value="" /> <value unit="k/cumm" xsi:type="PQ " value="16.6" /> <interpretationCode codeSystem="local" code="*" /> <referenceRange> <observationRange> <text>2.0- 9.0</text> </observationRange> </referenceRange> </ observation> </component> <component> <observation moodCode= "EVN" classCode="OBS"> <templateId root="10.29.840.1.158977.10.20.22.4.2 " /> <id nullFlavor="NA" /> <code codeSystem="local" code="GR& #37;" displayName="GRANULOCYTE %" /> <statusCode code="completed" / > <effectiveTime value="109210524990" /> <value unit="%" xsi:type="PQ" value="91" /> <interpretationCode codeSystem="local" code ="*" /> <referenceRange> <observationRange> < text>50-75</text> </observationRange> </referenceRange> </observation> </component> <component> <observation moodCode="EVN" classCode="OBS"> <templateId root= "2.16.840.1.842504.10..4.2" /> <id nullFlavor="NA" /> < code codeSystem="local" code="LY#" displayName="LYMPHOCYTE #" /> < statusCode code="completed" /> <effectiveTime value="" /> <value unit="k/cumm" xsi:type="PQ" value="0.3" /> < interpretationCode codeSystem="local" code="*" /> <referenceRange> <observationRange> <text>1.0-4.0</text> </ observationRange> </referenceRange> </observation> </ component> <component> <observation moodCode="EVN" classCode="OBS"> <templateId root="216.840.1.504934.1022.4.2" /> <id nullFlavor="NA" /> <code codeSystem="local" code="LY%" displayName= "LYMPHOCYTE %" /> <statusCode code="completed" /> < effectiveTime value="110517437655" /> <value unit="%" xsi:type="PQ " value="2" /> <interpretationCode codeSystem="local" code="*" /> <referenceRange> <observationRange> <text>20-30</ text> </observationRange> </referenceRange> </ observation> </component> <component> <observation moodCode= "EVN" classCode="OBS"> <templateId root="216.840.1.758004.10.4.2 " /> <id nullFlavor="NA" /> <code codeSystem="local" code="MCH " displayName="MEAN CELL HGB" /> <statusCode code="completed" /> <effectiveTime value="672578867575" /> <value unit="pg" xsi:type= "PQ" value="27.3" /> <referenceRange> <observationRange> <text>27.0-33.0</text> </observationRange> </ referenceRange> </observation> </component> <component> <observation moodCode="EVN" classCode="OBS"> <templateId root= "10.29.840.1.858615.07.02.22.4.2" /> <id nullFlavor="NA" /> < code codeSystem="local" code="MCHC" displayName="MEAN CELL HGB CONCENTRATION" / > <statusCode code="completed" /> <effectiveTime value= "277304431905" /> <value unit="g/dL" xsi:type="PQ" value="34.2" /> <referenceRange> <observationRange> <text>32.0- 37.0</text> </observationRange> </referenceRange> </ observation> </component> <component> <observation moodCode= "EVN" classCode="OBS"> <templateId root="216.840.1.609763...4.2 " /> <id nullFlavor="NA" /> <code codeSystem="local" code="MCV " displayName="MEAN CELL VOLUME" /> <statusCode code="completed" /> <effectiveTime value="933996522924" /> <value unit="fl" xsi:type ="PQ" value="79.6" /> <interpretationCode codeSystem="local" code="*" / > <referenceRange> <observationRange> <text> 80.0-100.0</text> </observationRange> </referenceRange> </observation> </component> <component> <observation moodCode="EVN" classCode="OBS"> <templateId root= "216.840.1.099102..22.4.2" /> <id nullFlavor="NA" /> < code codeSystem="local" code="MO#" displayName="MONOCYTE #" /> < statusCode code="completed" /> <effectiveTime value="341501967038" /> <value unit="k/cumm" xsi:type="PQ" value="1.3" /> < interpretationCode codeSystem="local" code="*" /> <referenceRange> <observationRange> <text>0.1-1.0</text> </ observationRange> </referenceRange> </observation> </ component> <component> <observation moodCode="EVN" classCode="OBS"> <templateId root="216.840.1.921846.10...4.2" /> <id nullFlavor="NA" /> <code codeSystem="local" code="MO%" displayName= "MONOCYTE %" /> <statusCode code="completed" /> < effectiveTime value="279085764146" /> <value unit="%" xsi:type="PQ " value="7" /> <interpretationCode codeSystem="local" code="*" /> <referenceRange> <observationRange> <text>4-6</text > </observationRange> </referenceRange> </observation > </component> <component> <observation moodCode="EVN" classCode="OBS"> <templateId root="10.29.840.1.746398.10.20.22.4.2" /> <id nullFlavor="NA" /> <code codeSystem="local" code="RBC" displayName="RED BLOOD CELL" /> <statusCode code="completed" /> <effectiveTime value="006572219792" /> <value unit="m/cumm" xsi:type ="PQ" value="5.54" /> <referenceRange> <observationRange> <text>4.00-6.00</text> </observationRange> </ referenceRange> </observation> </component> <component> <observation moodCode="EVN" classCode="OBS"> <templateId root= "10.29.840.1.826888.10..22.4.2" /> <id nullFlavor="NA" /> < code codeSystem="local" code="RDW" displayName="RED CELL DISTRIBUTION WIDTH" /> <statusCode code="completed" /> <effectiveTime value= "" /> <value unit="%" xsi:type="PQ" value="13.5" /> <referenceRange> <observationRange> <text>11.0- 15.6</text> </observationRange> </referenceRange> </ observation> </component> <component> <observation moodCode= "EVN" classCode="OBS"> <templateId root="10.29.840.1.779928.10.20.22.4.2 " /> <id nullFlavor="NA" /> <code codeSystem="local" code="WBC " displayName="WHITE BLOOD CELL" /> <statusCode code="completed" /> <effectiveTime value="504644492648" /> <value unit="k/cumm" xsi: type="PQ" value="18.2" /> <interpretationCode codeSystem="local" code= "*" /> <referenceRange> <observationRange> < text>5.0-10.0</text> </observationRange> </referenceRange> </observation> </component> <component> <observation moodCode="EVN" classCode="OBS"> <templateId root= "216.840.1.941009.10.20.22.4.2" /> <id nullFlavor="NA" /> < code codeSystem="local" code="HGBT" displayName="HEMOGLOBIN" /> < statusCode code="completed" /> <effectiveTime value="322021562285" /> <value unit="gm/dL" xsi:type="PQ" value="15.1" /> < referenceRange> <observationRange> <text>14.0-18.0</text > </observationRange> </referenceRange> </observation > </component> <component> <observation moodCode="EVN" classCode="OBS"> <templateId root="10.29.840.1.909212.10..22.4.2" /> <id nullFlavor="NA" /> <code codeSystem="local" code="HCTT" displayName="HEMATOCRIT" /> <statusCode code="completed" /> < effectiveTime value="322580438012" /> <value unit="%" xsi:type="PQ " value="44.1" /> <referenceRange> <observationRange> <text>40.0-54.0</text> </observationRange> </ referenceRange> </observation> </component> <component> <observation moodCode="EVN" classCode="OBS"> <templateId root= "16.840.1.790997.10.20.22.4.2" /> <id nullFlavor="NA" /> < code codeSystem="local" code="PLT" displayName="PLATELET COUNT" /> < statusCode code="completed" /> <effectiveTime value="567275798354" /> <value unit="k/cumm" xsi:type="PQ" value="102" /> < interpretationCode codeSystem="local" code="*" /> <referenceRange> <observationRange> <text>150-400</text> </ observationRange> </referenceRange> </observation> </ component> </organizer> </entry> <entry> <organizer moodCode="EVN" classCode="BATTERY"> <templateId root="216.840.1.134776.10..22.4.1" /> <id nullFlavor="NA" /> <code codeSystem="local" code="ALC" displayName ="ALCOHOL (ETHANOL) SERUM" /> <statusCode code="completed" /> < component> <observation moodCode="EVN" classCode="OBS"> < templateId root="216.840.1.994019.10.20.22.4.2" /> <id nullFlavor="NA " /> <code codeSystem="local" code="ALC" displayName="ALCOHOL (ETHANOL ) SERUM" /> <statusCode code="completed" /> <effectiveTime value="357064023630" /> <value unit="mg/dL" xsi:type="PQ" value="< 10" /> <referenceRange> <observationRange> < text> < 10</text> </observationRange> </referenceRange> </observation> </component> </organizer> </entry> <entry> < organizer moodCode="EVN" classCode="BATTERY"> <templateId root= "216.840.1.013566.10.20.22.4.1" /> <id nullFlavor="NA" /> <code codeSystem="local" code="iCHEM8" displayName="CHEM/HEM PROFILE-BEDSIDE" /> <statusCode code="completed" /> <component> <observation moodCode= "EVN" classCode="OBS"> <templateId root="16.840.1.312002.07.02.22.4.2 " /> <id nullFlavor="NA" /> <code codeSystem="local" code="K" displayName="POTASSIUM" /> <statusCode code="completed" /> < effectiveTime value="409852278990" /> <value unit="mmol/L" xsi:type="PQ " value="3.5" /> <referenceRange> <observationRange> <text>3.5-5.3</text> </observationRange> </ referenceRange> </observation> </component> <component> <observation moodCode="EVN" classCode="OBS"> <templateId root= "[id number]" /> <id nullFlavor="NA" /> < code codeSystem="local" code="CMETHOD" displayName="METHOD" /> < statusCode code="completed" /> <effectiveTime value="260103409947" /> <value unit="" xsi:type="PQ" value="Bedside" /> < referenceRange> <observationRange> <text /> < /observationRange> </referenceRange> </observation> </ component> <component> <observation moodCode="EVN" classCode="OBS"> <templateId root="[id number]" /> <id nullFlavor="NA" /> <code codeSystem="local" code="GAP" displayName= "ANION GAP" /> <statusCode code="completed" /> <effectiveTime value="083301733412" /> <value unit="mmol/L" xsi:type="PQ" value="19" / > <referenceRange> <observationRange> <text>10- 20</text> </observationRange> </referenceRange> </ observation> </component> <component> <observation moodCode= "EVN" classCode="OBS"> <templateId root="[id number]..4.2 " /> <id nullFlavor="NA" /> <code codeSystem="local" code= "HMETHOD" displayName="METHOD" /> <statusCode code="completed" /> <effectiveTime value="223921141083" /> <value unit="" xsi:type="PQ " value="Bedside" /> <referenceRange> <observationRange> <text /> </observationRange> </referenceRange> </observation> </component> <component> <observation moodCode="EVN" classCode="OBS"> <templateId root= "[id number]" /> <id nullFlavor="NA" /> < code codeSystem="local" code="GLU" displayName="GLUCOSE" /> < statusCode code="completed" /> <effectiveTime value="461753279242" /> <value unit="mg/dL" xsi:type="PQ" value="119" /> < interpretationCode codeSystem="local" code="*" /> <referenceRange> <observationRange> <text>70-99</text> </ observationRange> </referenceRange> </observation> </ component> <component> <observation moodCode="EVN" classCode="OBS"> <templateId root="[id number]2.4.2" /> <id nullFlavor="NA" /> <code codeSystem="local" code="BUN" displayName= "BLOOD UREA NITROGEN" /> <statusCode code="completed" /> < effectiveTime value="[id number]" /> <value unit="mg/dL" xsi:type="PQ " value="40" /> <interpretationCode codeSystem="local" code="*" /> <referenceRange> <observationRange> <text>7-20</ text> </observationRange> </referenceRange> </ observation> </component> <component> <observation moodCode= "EVN" classCode="OBS"> <templateId root="216.840.1.325097.07.02.22.4.2 " /> <id nullFlavor="NA" /> <code codeSystem="local" code= "CREAT" displayName="CREATININE" /> <statusCode code="completed" /> <effectiveTime value="[id number]" /> <value unit="mg/dL" xsi: type="PQ" value="1.5" /> <interpretationCode codeSystem="local" code="* " /> <referenceRange> <observationRange> <text> 0.7-1.3</text> </observationRange> </referenceRange> </observation> </component> <component> <observation moodCode= "EVN" classCode="OBS"> <templateId root="216.840.1.183689.10...4.2 " /> <id nullFlavor="NA" /> <code codeSystem="local" code= "HGBT" displayName="HEMOGLOBIN" /> <statusCode code="completed" /> <effectiveTime value="655404403104" /> <value unit="gm/dL" xsi: type="PQ" value="15.3" /> <referenceRange> <observationRange > <text>14.0-18.0</text> </observationRange> </ referenceRange> </observation> </component> <component> <observation moodCode="EVN" classCode="OBS"> <templateId root= "10.29.840.1.004889..22.4.2" /> <id nullFlavor="NA" /> < code codeSystem="local" code="HCTT" displayName="HEMATOCRIT" /> < statusCode code="completed" /> <effectiveTime value="595166545752" /> <value unit="%" xsi:type="PQ" value="45.0" /> < referenceRange> <observationRange> <text>40.0-54.0</text > </observationRange> </referenceRange> </observation > </component> <component> <observation moodCode="EVN" classCode="OBS"> <templateId root="10.29.840.1.826978.07.02.22.4.2" /> <id nullFlavor="NA" /> <code codeSystem="local" code="NA" displayName="SODIUM" /> <statusCode code="completed" /> < effectiveTime value="741050794762" /> <value unit="mmol/L" xsi:type="PQ " value="131" /> <interpretationCode codeSystem="local" code="*" /> <referenceRange> <observationRange> <text>135-148 </text> </observationRange> </referenceRange> </ observation> </component> <component> <observation moodCode= "EVN" classCode="OBS"> <templateId root="10.29.840.1.139334.07.02.22.4.2 " /> <id nullFlavor="NA" /> <code codeSystem="local" code="CL " displayName="CHLORIDE" /> <statusCode code="completed" /> < effectiveTime value="055916831531" /> <value unit="mmol/L" xsi:type="PQ " value="96" /> <interpretationCode codeSystem="local" code="*" /> <referenceRange> <observationRange> <text>98-110</ text> </observationRange> </referenceRange> </ observation> </component> <component> <observation moodCode= "EVN" classCode="OBS"> <templateId root="216.840.1.814699.10...4.2 " /> <id nullFlavor="NA" /> <code codeSystem="local" code="CO2 " displayName="CARBON DIOXIDE" /> <statusCode code="completed" /> <effectiveTime value="371194887620" /> <value unit="mmol/L" xsi: type="PQ" value="21" /> <referenceRange> <observationRange> <text>21-32</text> </observationRange> </ referenceRange> </observation> </component> <component> <observation moodCode="EVN" classCode="OBS"> <templateId root= "10.29.840.1.626145.07.02.22.4.2" /> <id nullFlavor="NA" /> < code codeSystem="local" code="CAION" displayName="CALCIUM IONIZED" /> < statusCode code="completed" /> <effectiveTime value="243564125102" /> <value unit="mg/dL" xsi:type="PQ" value="4.7" /> < referenceRange> <observationRange> <text>4.5-5.3</text> </observationRange> </referenceRange> </observation > </component> </organizer> </entry> <entry> <organizer moodCode= "EVN" classCode="BATTERY"> <templateId root="16.840.1.003640.10..4.1 " /> <id nullFlavor="NA" /> <code codeSystem="local" code="BC" displayName="BLOOD CULTURE" /> <statusCode code="completed" /> < component> <observation moodCode="EVN" classCode="OBS"> < templateId root="10.29.840.1.866008.10..4.2" /> <id nullFlavor="NA " /> <code codeSystem="local" code="MB" displayName="Microbiology" /> <statusCode code="completed" /> <effectiveTime value= "108289329954" /> <value xsi:type="ST" value="<pre><b>BLOOD CULTURE</b > See BelowIs this a Possible Sepsis/Sepsis patient? YesBLOOD CULTURE(F) Jus Date/Time: 09/28/2016 13:05 Richie Date/ Time: 09/30/2016 07:53SOURCE: BLOODSPEC DESC: PERIPHERALPOSITIVE SMEAR CALLED AT 0654, 09/29/16 BY JOVANNI.[facility] TO . AT PHONE #. AND READ BACK.POSITIVE SMEAR (Abnormal)GRAM NEGATIVE BACILLI (Abnormal)HOURS TO DETECTION9:52Organism # 1 ESCHERICHIA COLICOMMENTS .FOR SUSCEPTIBILITY SEE PREVIOUS REPORT [facility] [place] [place] [address]</pre>" /> <referenceRange > <observationRange> <text /> </ observationRange> </referenceRange> </observation> </ component> </organizer> </entry> <entry> <organizer moodCode="EVN" classCode="BATTERY"> <templateId root="10.29.840.1.968820.07.02.22.4.1" /> <id nullFlavor="NA" /> <code codeSystem="local" code="LACT" displayName="LACTIC ACID" /> <statusCode code="completed" /> < component> <observation moodCode="EVN" classCode="OBS"> < templateId root="216.840.1.005977.10...4.2" /> <id nullFlavor="NA " /> <code codeSystem="local" code="LACT" displayName="LACTIC ACID" /> <statusCode code="completed" /> <effectiveTime value= "296222284771" /> <value unit="mmol/L" xsi:type="PQ" value="2.3" /> <interpretationCode codeSystem="local" code="*" /> < referenceRange> <observationRange> <text>0.5-2.0</text> </observationRange> </referenceRange> </observation > </component> </organizer> </entry> <entry> <organizer moodCode= "EVN" classCode="BATTERY"> <templateId root="2.16.840.1.656762.10.20.22.4.1 " /> <id nullFlavor="NA" /> <code codeSystem="local" code="BC" displayName="BLOOD CULTURE" /> <statusCode code="completed" /> < component> <observation moodCode="EVN" classCode="OBS"> < templateId root="2.16.840.1.207184.10.20.22.4.2" /> <id nullFlavor="NA " /> <code codeSystem="local" code="MB" displayName="Microbiology" /> <statusCode code="completed" /> <effectiveTime value= "357282211729" /> <value xsi:type="ST" value="<pre><b> BLOOD CULTURE</b> See BelowIs this a Possible Sepsis/Sepsis patient? YesBLOOD CULTURE(F) Jus Date/Time: 09/28/2016 13:09 Richie Date/Time: 09/30/2016 07:52SOURCE: BLOODSPEC DESC: PERIPHERALPOSITIVE SMEAR CALLED AT 0113, 09/29/16 BY JOVANNI.[facility] AT PHONE #[id number] AND READ BACK.POSITIVE SMEAR (Abnormal)GRAM NEGATIVE BACILLI ( Abnormal)HOURS TO [id number] #1 ESCHERICHIA COLI InterpAMPICILLIN VITEK <=2 SAMPICILLIN/SULBACTAM VITEK <=2 SCEFEPIME VITEK &lt ;=1 SCEFTRIAXONE VITEK <=1 SCIPROFLOXACIN VITEK <=0.25 SGENTAMICIN VITEK <=1 SPIPERACILLIN/TAZOBZCTAM VITEK <=4 STRIMETH/SULFA VITEK &lt ;=20 [facility] [place] [address]</pre>" / > <referenceRange> <observationRange> <text /> </observationRange> </referenceRange> </observation > </component> </organizer> </entry> <entry> <organizer moodCode= "EVN" classCode="BATTERY"> <templateId root="2.16.840.1.951036.10.20.22.4.1 " /> <id nullFlavor="NA" /> <code codeSystem="local" code="INFLAAG" displayName="INFLUENZA A OIA - INFLUENZA B OIA" /> <statusCode code= "completed" /> <component> <observation moodCode="EVN" classCode= "OBS"> <templateId root="2.16.840.1.728634.10.20.22.4.2" /> < id nullFlavor="NA" /> <code codeSystem="local" code="MB" displayName= "Microbiology" /> <statusCode code="completed" /> < effectiveTime value="563390795667" /> <value xsi:type="ST" value="<pre> <b>INFLUENZA A OIA - INFLUENZA B OIA</b> See BelowINFLUENZA A OIA(F) Jus Date/Time: 09/28/2016 13:58 Richie Date/Time: 09/28/2016 14:54SOURCE: NASOPHARYNGEALSPEC DESC: A negative result does not exclude influenza virus infectionINFLUENZA A OIANEGATIVE FOR INFLUENZA [facility] [place], [place] [address]Cst BelowINFLUENZA B OIA(F ) Jus Date/Time: 09/28/2016 13:58 Richie Date/Time: 09/28/2016 14:54SOURCE: NASOPHARYNGEALSPEC DESC: INFLUENZA B OIANEGATIVE FOR INFLUENZA [facility] [place] [address]< /pre>" /> <referenceRange> <observationRange> < text /> </observationRange> </referenceRange> </ observation> </component> </organizer> </entry> <entry> <organizer moodCode="EVN" classCode="BATTERY"> <templateId root= "216.840.1.302114.10..22.4.1" /> <id nullFlavor="NA" /> <code codeSystem="local" code="UA" displayName="URINALYSIS, ROUTINE" /> < statusCode code="completed" /> <component> <observation moodCode= "EVN" classCode="OBS"> <templateId root="216.840.1.116822.10..22.4.2 " /> <id nullFlavor="NA" /> <code codeSystem="local" code= "LEUESU" displayName="UA LEUKOCYTE ESTERASE DIPSTICK" /> <statusCode code="completed" /> <effectiveTime value="" /> < value unit="" xsi:type="PQ" value="TRACE" /> <interpretationCode codeSystem="local" code="*" /> <referenceRange> < observationRange> <text>NEGATIVE</text> </ observationRange> </referenceRange> </observation> </ component> <component> <observation moodCode="EVN" classCode="OBS"> <templateId root="216.840.1.453408.10..22.4.2" /> <id nullFlavor="NA" /> <code codeSystem="local" code="NITRIU" displayName= "UA NITRITE DIPSTICK" /> <statusCode code="completed" /> < effectiveTime value="" /> <value unit="" xsi:type="PQ" value="POSITIVE" /> <interpretationCode codeSystem="local" code="*" /> <referenceRange> <observationRange> <text> NEGATIVE</text> </observationRange> </referenceRange> </observation> </component> <component> <observation moodCode ="EVN" classCode="OBS"> <templateId root= "840.1.038845.07.02.22.4.2" /> <id nullFlavor="NA" /> < code codeSystem="local" code="PROTEIU" displayName="UA PROTEIN DIPSTICK" /> <statusCode code="completed" /> <effectiveTime value= "" /> <value unit="" xsi:type="PQ" value="TRACE" /> <interpretationCode codeSystem="local" code="*" /> <referenceRange> <observationRange> <text>NEGATIVE</text> </ observationRange> </referenceRange> </observation> </ component> <component> <observation moodCode="EVN" classCode="OBS"> <templateId root="840.1.455806.07.02.22.4.2" /> <id nullFlavor="NA" /> <code codeSystem="local" code="DGLUU" displayName= "UA GLUCOSE DIPSTICK" /> <statusCode code="completed" /> < effectiveTime value="" /> <value unit="" xsi:type="PQ" value="NEGATIVE" /> <referenceRange> <observationRange> <text>NEGATIVE</text> </observationRange> </ referenceRange> </observation> </component> <component> <observation moodCode="EVN" classCode="OBS"> <templateId root= "10.29.840.1.784761.07.02.22.4.2" /> <id nullFlavor="NA" /> < code codeSystem="local" code="KETONU" displayName="UA KETONE DIPSTICK" /> <statusCode code="completed" /> <effectiveTime value=" " /> <value unit="" xsi:type="PQ" value="1+" /> < interpretationCode codeSystem="local" code="*" /> <referenceRange> <observationRange> <text>NEGATIVE</text> </ observationRange> </referenceRange> </observation> </ component> <component> <observation moodCode="EVN" classCode="OBS"> <templateId root="216.840.1.675865.07.02.22.4.2" /> <id nullFlavor="NA" /> <code codeSystem="local" code="UROBILU" displayName= "UA UROBILINOGEN DIPSTICK" /> <statusCode code="completed" /> <effectiveTime value="" /> <value unit="" xsi:type="PQ" value="2+" /> <interpretationCode codeSystem="local" code="*" /> <referenceRange> <observationRange> <text>NORMAL</ text> </observationRange> </referenceRange> </ observation> </component> <component> <observation moodCode= "EVN" classCode="OBS"> <templateId root="16.840.1.066442.07.02.22.4.2 " /> <id nullFlavor="NA" /> <code codeSystem="local" code= "BILU" displayName="UA BILIRUBIN DIPSTICK" /> <statusCode code= "completed" /> <effectiveTime value="" /> <value unit="" xsi:type="PQ" value="POSITIVE" /> <interpretationCode codeSystem="local" code="*" /> <referenceRange> < observationRange> <text>NEGATIVE</text> </ observationRange> </referenceRange> </observation> </ component> <component> <observation moodCode="EVN" classCode="OBS"> <templateId root="10.29.840.1.865193.10.22.4.2" /> <id nullFlavor="NA" /> <code codeSystem="local" code="SURY" displayName="UA BLOOD DIPSTICK" /> <statusCode code="completed" /> < effectiveTime value="" /> <value unit="" xsi:type="PQ" value="1+" /> <interpretationCode codeSystem="local" code="*" /> <referenceRange> <observationRange> <text>NEGATIVE</ text> </observationRange> </referenceRange> </ observation> </component> <component> <observation moodCode= "EVN" classCode="OBS"> <templateId root="10.29.840.1.545765.07.02.22.4.2 " /> <id nullFlavor="NA" /> <code codeSystem="local" code= "SPGRU" displayName="UA SPECIFIC GRAVITY" /> <statusCode code= "completed" /> <effectiveTime value="" /> <value unit="" xsi:type="PQ" value="1.029" /> <interpretationCode codeSystem= "local" code="*" /> <referenceRange> <observationRange> <text>1.015-1.025</text> </observationRange> </ referenceRange> </observation> </component> <component> <observation moodCode="EVN" classCode="OBS"> <templateId root= "10.29.840.1.513360.10..4.2" /> <id nullFlavor="NA" /> < code codeSystem="local" code="CHUCK" displayName="UR PH" /> <statusCode code="completed" /> <effectiveTime value="" /> < value unit="" xsi:type="PQ" value="5.0" /> <referenceRange> <observationRange> <text>5.0-7.0</text> </ observationRange> </referenceRange> </observation> </ component> </organizer> </entry> <entry> <organizer moodCode="EVN" classCode="BATTERY"> <templateId root="16.840.1.260871.10..22.4.1" /> <id nullFlavor="NA" /> <code codeSystem="local" code="UAMICRO" displayName="UA MICROSCOPIC" /> <statusCode code="completed" /> < component> <observation moodCode="EVN" classCode="OBS"> < templateId root="16.840.1.996107...4.2" /> <id nullFlavor="NA " /> <code codeSystem="local" code="AMORPU" displayName="UA AMORPHOUS SEDIMENT" /> <statusCode code="completed" /> <effectiveTime value="" /> <value unit="" xsi:type="PQ" value="2+" /> <referenceRange> <observationRange> <text /> </observationRange> </referenceRange> </observation> </component> <component> <observation moodCode="EVN" classCode= "OBS"> <templateId root="16.840.1.188671.10..4.2" /> < id nullFlavor="NA" /> <code codeSystem="local" code="BACU" displayName= "UA BACTERIA" /> <statusCode code="completed" /> < effectiveTime value="" /> <value unit="" xsi:type="PQ" value="1+" /> <interpretationCode codeSystem="local" code="*" /> <referenceRange> <observationRange> <text>NEGATIVE</ text> </observationRange> </referenceRange> </ observation> </component> <component> <observation moodCode= "EVN" classCode="OBS"> <templateId root="216.840.1.910713.1022.4.2 " /> <id nullFlavor="NA" /> <code codeSystem="local" code= "RBCU" displayName="UA RBC" /> <statusCode code="completed" /> <effectiveTime value="" /> <value unit="rbc/hpf" xsi:type ="PQ" value="5-10" /> <interpretationCode codeSystem="local" code="*" / > <referenceRange> <observationRange> <text>0 - 3</text> </observationRange> </referenceRange> </ observation> </component> <component> <observation moodCode= "EVN" classCode="OBS"> <templateId root="10.29.840.1.599258.07.02.22.4.2 " /> <id nullFlavor="NA" /> <code codeSystem="local" code= "UAVOL" displayName="UA VOLUME FOR EXAM" /> <statusCode code="completed " /> <effectiveTime value="" /> <value unit="mL" xsi:type="PQ" value="12.0" /> <referenceRange> < observationRange> <text>(12mL STD)</text> </ observationRange> </referenceRange> </observation> </ component> <component> <observation moodCode="EVN" classCode="OBS"> <templateId root="16.840.1.313337.10.22.4.2" /> <id nullFlavor="NA" /> <code codeSystem="local" code="WBCU" displayName=" UA WBC" /> <statusCode code="completed" /> <effectiveTime value="965292028763" /> <value unit="wbc/hpf" xsi:type="PQ" value="0-1 " /> <referenceRange> <observationRange> <text> 0 - 5</text> </observationRange> </referenceRange> </ observation> </component> </organizer> </entry> <entry> <organizer moodCode="EVN" classCode="BATTERY"> <templateId root= "2.16.840.1.448672.10..22.4.1" /> <id nullFlavor="NA" /> <code codeSystem="local" code="DRUGAB" displayName="UR DRUGS OF ABUSE SCREEN" /> <statusCode code="completed" /> <component> <observation moodCode= "EVN" classCode="OBS"> <templateId root="216.840.1.771925.10..22.4.2 " /> <id nullFlavor="NA" /> <code codeSystem="local" code= "AMPHU" displayName="UR AMPHETAMINES SCREEN" /> <statusCode code= "completed" /> <effectiveTime value="805874633141" /> <value unit="" xsi:type="PQ" value="NEG (<1000 ng/mL)" /> <referenceRange > <observationRange> <text>NEGATIVE</text> </ observationRange> </referenceRange> </observation> </ component> <component> <observation moodCode="EVN" classCode="OBS"> <templateId root="216.840.1.578743.10..22.4.2" /> <id nullFlavor="NA" /> <code codeSystem="local" code="BARBU" displayName= "UR BARBITURATE SCREEN" /> <statusCode code="completed" /> < effectiveTime value="950783883532" /> <value unit="" xsi:type="PQ" value="NEG (< 200 ng/mL)" /> <referenceRange> < observationRange> <text>NEGATIVE</text> </ observationRange> </referenceRange> </observation> </ component> <component> <observation moodCode="EVN" classCode="OBS"> <templateId root="216.840.1.060560.10.4.2" /> <id nullFlavor="NA" /> <code codeSystem="local" code="DAUCOMMENT" displayName="DRUGS OF ABUSE SCREEN COMMENT" /> <statusCode code= "completed" /> <effectiveTime value="864860046735" /> <value unit="" xsi:type="PQ" value="" /> <referenceRange> < observationRange> <text /> </observationRange> </referenceRange> </observation> </component> <component> <observation moodCode="EVN" classCode="OBS"> <templateId root= "216.840.1.535410.07.02.22.4.2" /> <id nullFlavor="NA" /> < code codeSystem="local" code="OPIU" displayName="UR OPIATES SCREEN" /> <statusCode code="completed" /> <effectiveTime value="808800693723" /> <value unit="" xsi:type="PQ" value="NEG (< 300 ng/mL)" /> <referenceRange> <observationRange> <text>NEGATIVE</ text> </observationRange> </referenceRange> </ observation> </component> <component> <observation moodCode= "EVN" classCode="OBS"> <templateId root="216.840.1.522803.07.02.22.4.2 " /> <id nullFlavor="NA" /> <code codeSystem="local" code= "PCPU" displayName="UR PHENCYCLIDINE (PCP) SCREEN" /> <statusCode code= "completed" /> <effectiveTime value="" /> <value unit="" xsi:type="PQ" value="NEG (< 25 ng/mL)" /> <referenceRange > <observationRange> <text>NEGATIVE</text> </ observationRange> </referenceRange> </observation> </ component> <component> <observation moodCode="EVN" classCode="OBS"> <templateId root="2.16.840.1.932211.10..22.4.2" /> <id nullFlavor="NA" /> <code codeSystem="local" code="THCU" displayName=" UR CANNABINOIDS (THC) SCREEN" /> <statusCode code="completed" /> <effectiveTime value="" /> <value unit="" xsi:type="PQ " value="NEG (< 50 ng/mL)" /> <referenceRange> < observationRange> <text>NEGATIVE</text> </ observationRange> </referenceRange> </observation> </ component> <component> <observation moodCode="EVN" classCode="OBS"> <templateId root="2.16.840.1.939677.10..22.4.2" /> <id nullFlavor="NA" /> <code codeSystem="local" code="COCAU" displayName= "UR COCAINE METABOLITE SCREEN" /> <statusCode code="completed" /> <effectiveTime value="" /> <value unit="" xsi:type="PQ " value="NEG (< 300 ng/mL)" /> <referenceRange> < observationRange> <text>NEGATIVE</text> </ observationRange> </referenceRange> </observation> </ component> <component> <observation moodCode="EVN" classCode="OBS"> <templateId root="16.840.1.300057.10..22.4.2" /> <id nullFlavor="NA" /> <code codeSystem="local" code="METHU" displayName= "UR METHADONE SCREEN" /> <statusCode code="completed" /> < effectiveTime value="460456796448" /> <value unit="" xsi:type="PQ" value="NEG (< 300 ng/mL)" /> <referenceRange> < observationRange> <text>NEGATIVE</text> </ observationRange> </referenceRange> </observation> </ component> <component> <observation moodCode="EVN" classCode="OBS"> <templateId root="10.29.840.1.474082.10...4.2" /> <id nullFlavor="NA" /> <code codeSystem="local" code="BENZU" displayName= "UR BENZODIAZEPINE SCREEN" /> <statusCode code="completed" /> <effectiveTime value="139232220663" /> <value unit="" xsi:type="PQ" value="NEG (< 200 ng/mL)" /> <referenceRange> < observationRange> <text>NEGATIVE</text> </ observationRange> </referenceRange> </observation> </ component> </organizer> </entry> <entry> <organizer moodCode="EVN" classCode="BATTERY"> <templateId root="16.840.1.460071.10..22.4.1" /> <id nullFlavor="NA" /> <code codeSystem="local" code="CBCWD" displayName="CBC With Platelet and Differential" /> <statusCode code= "completed" /> <component> <observation moodCode="EVN" classCode= "OBS"> <templateId root="840.1.721632...22.4.2" /> < id nullFlavor="NA" /> <code codeSystem="local" code="ABASR" displayName ="Absolute Basophils" /> <statusCode code="completed" /> < effectiveTime value="" /> <value unit="10*3/uL" xsi:type= "PQ" value="0.01" /> <referenceRange> <observationRange> <text>0.00-0.20</text> </observationRange> </ referenceRange> </observation> </component> <component> <observation moodCode="EVN" classCode="OBS"> <templateId root= "216.840.1.931575.07.02.22.4.2" /> <id nullFlavor="NA" /> < code codeSystem="local" code="AEOSR" displayName="Absolute Eosinophils" /> <statusCode code="completed" /> <effectiveTime value=" " /> <value unit="10*3/uL" xsi:type="PQ" value="0.02" /> < referenceRange> <observationRange> <text>0.00-0.50</text > </observationRange> </referenceRange> </observation > </component> <component> <observation moodCode="EVN" classCode="OBS"> <templateId root="16.840.1.084153.07.02.22.4.2" /> <id nullFlavor="NA" /> <code codeSystem="local" code="ALYMR" displayName="Absolute Lymphocytes" /> <statusCode code="completed" /> <effectiveTime value="621966753147" /> <value unit="10*3/uL" xsi:type="PQ" value="1.14" /> <referenceRange> < observationRange> <text>0.80-3.30</text> </ observationRange> </referenceRange> </observation> </ component> <component> <observation moodCode="EVN" classCode="OBS"> <templateId root="10.29.840.1.317607.10.2022.4.2" /> <id nullFlavor="NA" /> <code codeSystem="local" code="AMONR" displayName= "Absolute Monocytes" /> <statusCode code="completed" /> < effectiveTime value="" /> <value unit="10*3/uL" xsi:type= "PQ" value="1.47" /> <interpretationCode codeSystem="local" code="*" / > <referenceRange> <observationRange> <text> 0.30-1.00</text> </observationRange> </referenceRange> </observation> </component> <component> <observation moodCode="EVN" classCode="OBS"> <templateId root= "10.29.840.1.140126.1022.4.2" /> <id nullFlavor="NA" /> < code codeSystem="local" code="ASEGR" displayName="Absolute Neutrophils" /> <statusCode code="completed" /> <effectiveTime value="181861699222 " /> <value unit="10*3/uL" xsi:type="PQ" value="14.66" /> < interpretationCode codeSystem="local" code="*" /> <referenceRange> <observationRange> <text>1.90-7.00</text> </ observationRange> </referenceRange> </observation> </ component> <component> <observation moodCode="EVN" classCode="OBS"> <templateId root="10.29.840.1.633483.10.2022.4.2" /> <id nullFlavor="NA" /> <code codeSystem="local" code="BASOR" displayName= "Basophils" /> <statusCode code="completed" /> <effectiveTime value="" /> <value unit="%" xsi:type="PQ" value="0" /> <referenceRange> <observationRange> <text>0-2< /text> </observationRange> </referenceRange> </ observation> </component> <component> <observation moodCode= "EVN" classCode="OBS"> <templateId root="16.840.1.897244.10..22.4.2 " /> <id nullFlavor="NA" /> <code codeSystem="local" code= "EOSR" displayName="Eosinophils" /> <statusCode code="completed" /> <effectiveTime value="329521882174" /> <value unit="%" xsi: type="PQ" value="0" /> <referenceRange> <observationRange> <text>0-4</text> </observationRange> </ referenceRange> </observation> </component> <component> <observation moodCode="EVN" classCode="OBS"> <templateId root= "10.29.840.1.604668.10..22.4.2" /> <id nullFlavor="NA" /> < code codeSystem="local" code="HCT" displayName="HCT" /> <statusCode code="completed" /> <effectiveTime value="" /> < value unit="%" xsi:type="PQ" value="37.8" /> <interpretationCode codeSystem="local" code="*" /> <referenceRange> < observationRange> <text>42.0-52.0</text> </ observationRange> </referenceRange> </observation> </ component> <component> <observation moodCode="EVN" classCode="OBS"> <templateId root="840.1.502268.10.20.22.4.2" /> <id nullFlavor="NA" /> <code codeSystem="local" code="HGB" displayName="HGB " /> <statusCode code="completed" /> <effectiveTime value= "987408749106" /> <value unit="g/dL" xsi:type="PQ" value="13.1" /> <interpretationCode codeSystem="local" code="*" /> < referenceRange> <observationRange> <text>14.0-18.0</text > </observationRange> </referenceRange> </observation > </component> <component> <observation moodCode="EVN" classCode="OBS"> <templateId root="840.1.097005.1022.4.2" /> <id nullFlavor="NA" /> <code codeSystem="local" code="IMGA" displayName="Immature Granulocytes" /> <statusCode code="completed" /> <effectiveTime value="" /> <value unit="%" xsi:type="PQ" value="1.4" /> <interpretationCode codeSystem="local" code="*" /> <referenceRange> <observationRange> <text>0.0-1.0</text> </observationRange> </referenceRange > </observation> </component> <component> <observation moodCode="EVN" classCode="OBS"> <templateId root= "840.1.021555.10.20.22.4.2" /> <id nullFlavor="NA" /> < code codeSystem="local" code="LYMPR" displayName="Lymphocytes" /> < statusCode code="completed" /> <effectiveTime value="[id number]" /> <value unit="%" xsi:type="PQ" value="7" /> < interpretationCode codeSystem="local" code="*" /> <referenceRange> <observationRange> <text>20-46</text> </ observationRange> </referenceRange> </observation> </ component> <component> <observation moodCode="EVN" classCode="OBS"> <templateId root="10.29.840.1.903303.10.20.22.4.2" /> <id nullFlavor="NA" /> <code codeSystem="local" code="MCH" displayName="MCH " /> <statusCode code="completed" /> <effectiveTime value= "" /> <value unit="pg" xsi:type="PQ" value="27.6" /> <referenceRange> <observationRange> <text>27.0-32.0< /text> </observationRange> </referenceRange> </ observation> </component> <component> <observation moodCode= "EVN" classCode="OBS"> <templateId root="840.1.990312.10.2022.4.2 " /> <id nullFlavor="NA" /> <code codeSystem="local" code= "MCHC" displayName="MCHC" /> <statusCode code="completed" /> < effectiveTime value="" /> <value unit="g/dL" xsi:type="PQ" value="34.7" /> <referenceRange> <observationRange> <text>32.0-36.0</text> </observationRange> </ referenceRange> </observation> </component> <component> <observation moodCode="EVN" classCode="OBS"> <templateId root= "10.29.840.1.749731.10.20.22.4.2" /> <id nullFlavor="NA" /> < code codeSystem="local" code="MCV" displayName="MCV" /> <statusCode code="completed" /> <effectiveTime value="[id number]" /> < value unit="fL" xsi:type="PQ" value="79.7" /> <interpretationCode codeSystem="local" code="*" /> <referenceRange> < observationRange> <text>82.0-99.0</text> </ observationRange> </referenceRange> </observation> </ component> <component> <observation moodCode="EVN" classCode="OBS"> <templateId root="16.840.1.236250.10.20.22.4.2" /> <id nullFlavor="NA" /> <code codeSystem="local" code="MONOR" displayName= "Monocytes" /> <statusCode code="completed" /> <effectiveTime value="[id number]" /> <value unit="%" xsi:type="PQ" value="8" /> <referenceRange> <observationRange> <text>4-11 </text> </observationRange> </referenceRange> </ observation> </component> <component> <observation moodCode= "EVN" classCode="OBS"> <templateId root="16.840.1.649154.10.20.22.4.2 " /> <id nullFlavor="NA" /> <code codeSystem="local" code="MPV " displayName="MPV" /> <statusCode code="completed" /> < effectiveTime value="219047620348" /> <value unit="fL" xsi:type="PQ" value="8.7" /> <interpretationCode codeSystem="local" code="*" /> <referenceRange> <observationRange> <text>9.4-12.3< /text> </observationRange> </referenceRange> </ observation> </component> <component> <observation moodCode= "EVN" classCode="OBS"> <templateId root="10.29.840.1.228646.10.20.22.4.2 " /> <id nullFlavor="NA" /> <code codeSystem="local" code= "SEGR" displayName="Neutrophils" /> <statusCode code="completed" /> <effectiveTime value="" /> <value unit="%" xsi: type="PQ" value="84" /> <interpretationCode codeSystem="local" code="* " /> <referenceRange> <observationRange> <text> 51-75</text> </observationRange> </referenceRange> </ observation> </component> <component> <observation moodCode= "EVN" classCode="OBS"> <templateId root="10.29.840.1.210469.10...4.2 " /> <id nullFlavor="NA" /> <code codeSystem="local" code= "NRBCA" displayName="Nucleated RBC Automated" /> <statusCode code= "completed" /> <effectiveTime value="" /> <value unit="/100WBC" xsi:type="PQ" value="0.0" /> <referenceRange> <observationRange> <text /> </observationRange> </referenceRange> </observation> </component> <component> <observation moodCode="EVN" classCode="OBS"> <templateId root= "10.29.840.1.424287.10.20.22.4.2" /> <id nullFlavor="NA" /> < code codeSystem="local" code="PLT" displayName="Platelet Count" /> < statusCode code="completed" /> <effectiveTime value="" /> <value unit="K/uL" xsi:type="PQ" value="336" /> < referenceRange> <observationRange> <text>150-400</text> </observationRange> </referenceRange> </observation > </component> <component> <observation moodCode="EVN" classCode="OBS"> <templateId root="216.840.1.778382.1022.4.2" /> <id nullFlavor="NA" /> <code codeSystem="local" code="RBC" displayName="RBC" /> <statusCode code="completed" /> < effectiveTime value="" /> <value unit="10*6/uL" xsi:type= "PQ" value="4.74" /> <referenceRange> <observationRange> <text>4.60-6.20</text> </observationRange> </ referenceRange> </observation> </component> <component> <observation moodCode="EVN" classCode="OBS"> <templateId root= "2.840.1.389670.22.4.2" /> <id nullFlavor="NA" /> < code codeSystem="local" code="RDW" displayName="RDW" /> <statusCode code="completed" /> <effectiveTime value="" /> < value unit="%" xsi:type="PQ" value="13.9" /> <referenceRange> <observationRange> <text>11.5-14.5</text> </ observationRange> </referenceRange> </observation> </ component> <component> <observation moodCode="EVN" classCode="OBS"> <templateId root="216.840.1.889558.10.22.4.2" /> <id nullFlavor="NA" /> <code codeSystem="local" code="WBCIR" displayName= "WBC" /> <statusCode code="completed" /> <effectiveTime value= "" /> <value unit="K/uL" xsi:type="PQ" value="17.6" /> <interpretationCode codeSystem="local" code="*" /> < referenceRange> <observationRange> <text>4.8-10.8</text > </observationRange> </referenceRange> </observation > </component> </organizer> </entry> <entry> <organizer moodCode= "EVN" classCode="BATTERY"> <templateId root="16.840.1.022571.07.02.22.4.1 " /> <id nullFlavor="NA" /> <code codeSystem="local" code="CMP" displayName="Comprehensive Metabolic Panel (CMP)" /> <statusCode code= "completed" /> <component> <observation moodCode="EVN" classCode= "OBS"> <templateId root="16.840.1.806028.07.02.22.4.2" /> < id nullFlavor="NA" /> <code codeSystem="local" code="ALB" displayName= "Albumin" /> <statusCode code="completed" /> <effectiveTime value="" /> <value unit="g/dL" xsi:type="PQ" value="2.5" / > <interpretationCode codeSystem="local" code="*" /> < referenceRange> <observationRange> <text>3.5-4.8</text> </observationRange> </referenceRange> </observation > </component> <component> <observation moodCode="EVN" classCode="OBS"> <templateId root="10.29.840.1.602851.07.02.22.4.2" /> <id nullFlavor="NA" /> <code codeSystem="local" code="ALP" displayName="Alkaline Phosphatase" /> <statusCode code="completed" /> <effectiveTime value="[id number]" /> <value unit="U/L" xsi: type="PQ" value="86" /> <referenceRange> <observationRange> <text>26-104</text> </observationRange> </ referenceRange> </observation> </component> <component> <observation moodCode="EVN" classCode="OBS"> <templateId root= "16.840.1.462166.10.20.22.4.2" /> <id nullFlavor="NA" /> < code codeSystem="local" code="ALT" displayName="ALT (SGPT)" /> < statusCode code="completed" /> <effectiveTime value="400550667059" /> <value unit="U/L" xsi:type="PQ" value="26" /> <referenceRange > <observationRange> <text>17-63</text> </ observationRange> </referenceRange> </observation> </ component> <component> <observation moodCode="EVN" classCode="OBS"> <templateId root="840.1.525486.10.22.4.2" /> <id nullFlavor="NA" /> <code codeSystem="local" code="AGAP" displayName= "Anion Gap" /> <statusCode code="completed" /> <effectiveTime value="701393597829" /> <value unit="mEq/L" xsi:type="PQ" value="10" / > <referenceRange> <observationRange> <text>3- 20</text> </observationRange> </referenceRange> </ observation> </component> <component> <observation moodCode= "EVN" classCode="OBS"> <templateId root="10.29.840.1.638308.10.20.22.4.2 " /> <id nullFlavor="NA" /> <code codeSystem="local" code="AST " displayName="AST (SGOT)" /> <statusCode code="completed" /> <effectiveTime value="" /> <value unit="U/L" xsi:type="PQ" value="29" /> <referenceRange> <observationRange> <text>15-41</text> </observationRange> </referenceRange > </observation> </component> <component> <observation moodCode="EVN" classCode="OBS"> <templateId root= "16.840.1.914144.10...4.2" /> <id nullFlavor="NA" /> < code codeSystem="local" code="BILIT" displayName="Bilirubin Total" /> < statusCode code="completed" /> <effectiveTime value="" /> <value unit="mg/dL" xsi:type="PQ" value="1.0" /> < referenceRange> <observationRange> <text>0.2-1.2</text> </observationRange> </referenceRange> </observation > </component> <component> <observation moodCode="EVN" classCode="OBS"> <templateId root="10.29.840.1.897113....4.2" /> <id nullFlavor="NA" /> <code codeSystem="local" code="BUN" displayName="BUN" /> <statusCode code="completed" /> < effectiveTime value="" /> <value unit="mg/dL" xsi:type="PQ " value="15" /> <referenceRange> <observationRange> <text>4-20</text> </observationRange> </referenceRange > </observation> </component> <component> <observation moodCode="EVN" classCode="OBS"> <templateId root= "10.29.840.1.428577.10..22.4.2" /> <id nullFlavor="NA" /> < code codeSystem="local" code="CA" displayName="Calcium" /> <statusCode code="completed" /> <effectiveTime value="" /> < value unit="mg/dL" xsi:type="PQ" value="8.5" /> <interpretationCode codeSystem="local" code="*" /> <referenceRange> < observationRange> <text>8.6-10.0</text> </ observationRange> </referenceRange> </observation> </ component> <component> <observation moodCode="EVN" classCode="OBS"> <templateId root="2.16.840.1.801140...4.2" /> <id nullFlavor="NA" /> <code codeSystem="local" code="CL" displayName= "Chloride" /> <statusCode code="completed" /> <effectiveTime value="" /> <value unit="mEq/L" xsi:type="PQ" value="96" / > <interpretationCode codeSystem="local" code="*" /> < referenceRange> <observationRange> <text>99-109</text> </observationRange> </referenceRange> </observation> </component> <component> <observation moodCode="EVN" classCode ="OBS"> <templateId root="2.16.840.1.532846.10.2022.4.2" /> < id nullFlavor="NA" /> <code codeSystem="local" code="CO2" displayName= "CO2" /> <statusCode code="completed" /> <effectiveTime value= "" /> <value unit="mEq/L" xsi:type="PQ" value="24" /> <referenceRange> <observationRange> <text>22-32</ text> </observationRange> </referenceRange> </ observation> </component> <component> <observation moodCode= "EVN" classCode="OBS"> <templateId root="16.840.1.046309.10..4.2 " /> <id nullFlavor="NA" /> <code codeSystem="local" code= "CREAT" displayName="Creatinine" /> <statusCode code="completed" /> <effectiveTime value="" /> <value unit="mg/dL" xsi: type="PQ" value="0.93" /> <referenceRange> <observationRange > <text>0.64-1.27</text> </observationRange> </ referenceRange> </observation> </component> <component> <observation moodCode="EVN" classCode="OBS"> <templateId root= "16.840.1.655172.07.02.22.4.2" /> <id nullFlavor="NA" /> < code codeSystem="local" code="GLOB" displayName="Globulin" /> < statusCode code="completed" /> <effectiveTime value="687575768393" /> <value unit="g/dL" xsi:type="PQ" value="3.7" /> < referenceRange> <observationRange> <text>1.9-4.3</text> </observationRange> </referenceRange> </observation > </component> <component> <observation moodCode="EVN" classCode="OBS"> <templateId root="10.29.840.1.785415.10..22.4.2" /> <id nullFlavor="NA" /> <code codeSystem="local" code="GLU" displayName="Glucose" /> <statusCode code="completed" /> < effectiveTime value="" /> <value unit="mg/dL" xsi:type="PQ " value="109" /> <interpretationCode codeSystem="local" code="*" /> <referenceRange> <observationRange> <text>70-100< /text> </observationRange> </referenceRange> </ observation> </component> <component> <observation moodCode= "EVN" classCode="OBS"> <templateId root="10.29.840.1.880814.10.20.22.4.2 " /> <id nullFlavor="NA" /> <code codeSystem="local" code="K" displayName="Potassium" /> <statusCode code="completed" /> < effectiveTime value="947539537397" /> <value unit="mEq/L" xsi:type="PQ " value="3.0" /> <interpretationCode codeSystem="local" code="*" /> <referenceRange> <observationRange> <text>3.6-5.1 </text> </observationRange> </referenceRange> </ observation> </component> <component> <observation moodCode= "EVN" classCode="OBS"> <templateId root="840.1.390780.07.02.22.4.2 " /> <id nullFlavor="NA" /> <code codeSystem="local" code="TP " displayName="Protein" /> <statusCode code="completed" /> < effectiveTime value="398434349562" /> <value unit="g/dL" xsi:type="PQ" value="6.2" /> <referenceRange> <observationRange> <text>6.1-7.9</text> </observationRange> </ referenceRange> </observation> </component> <component> <observation moodCode="EVN" classCode="OBS"> <templateId root= "10.29.840.1.264492.10.20.22.4.2" /> <id nullFlavor="NA" /> < code codeSystem="local" code="NA" displayName="Sodium" /> <statusCode code="completed" /> <effectiveTime value="349951199639" /> < value unit="mEq/L" xsi:type="PQ" value="130" /> <interpretationCode codeSystem="local" code="*" /> <referenceRange> < observationRange> <text>136-144</text> </ observationRange> </referenceRange> </observation> </ component> </organizer> </entry> <entry> <organizer moodCode="EVN" classCode="BATTERY"> <templateId root="216.840.1.495307.10..22.4.1" /> <id nullFlavor="NA" /> <code codeSystem="local" code="GFR" displayName ="eGFR" /> <statusCode code="completed" /> <component> < observation moodCode="EVN" classCode="OBS"> <templateId root= "216.840.1.440058.10..22.4.2" /> <id nullFlavor="NA" /> < code codeSystem="local" code="GFR" displayName="eGFR" /> <statusCode code="completed" /> <effectiveTime value="385566032046" /> < value unit="mL/min" xsi:type="PQ" value=">60" /> <referenceRange> <observationRange> <text>>60</text> </ observationRange> </referenceRange> </observation> </ component> </organizer> </entry> <entry> <organizer moodCode="EVN" classCode="BATTERY"> <templateId root="216.840.1.670234.10..22.4.1" /> <id nullFlavor="NA" /> <code codeSystem="local" code="UDRGH" displayName="Urine Drug Screen" /> <statusCode code="completed" /> < component> <observation moodCode="EVN" classCode="OBS"> < templateId root="216.840.1.708082.10..4.2" /> <id nullFlavor="NA " /> <code codeSystem="local" code="UTCA1" displayName="Tricyclics" /> <statusCode code="completed" /> <effectiveTime value= "854252015734" /> <value unit="NA" xsi:type="PQ" value="Not Detected" / > <referenceRange> <observationRange> <text /> </observationRange> </referenceRange> </observation > </component> <component> <observation moodCode="EVN" classCode="OBS"> <templateId root="216.840.1.780934.10..4.2" /> <id nullFlavor="NA" /> <code codeSystem="local" code="UAMP1" displayName="Amph/Meth/Ecstasy" /> <statusCode code="completed" /> <effectiveTime value="449045483547" /> <value unit="NA" xsi:type= "PQ" value="Negative" /> <referenceRange> <observationRange > <text /> </observationRange> </referenceRange > </observation> </component> <component> <observation moodCode="EVN" classCode="OBS"> <templateId root= "216.840.1.723942.10.22.4.2" /> <id nullFlavor="NA" /> < code codeSystem="local" code="UBAR1" displayName="Barbiturates" /> < statusCode code="completed" /> <effectiveTime value="012808128474" /> <value unit="NA" xsi:type="PQ" value="Negative" /> < referenceRange> <observationRange> <text /> < /observationRange> </referenceRange> </observation> </ component> <component> <observation moodCode="EVN" classCode="OBS"> <templateId root="216.840.1.970903.07.02.22.4.2" /> <id nullFlavor="NA" /> <code codeSystem="local" code="UBEN1" displayName= "Benzodiazepine" /> <statusCode code="completed" /> < effectiveTime value="" /> <value unit="NA" xsi:type="PQ" value="Negative" /> <referenceRange> <observationRange> <text /> </observationRange> </referenceRange> </observation> </component> <component> <observation moodCode="EVN" classCode="OBS"> <templateId root= "216.840.1.827708.07.02.22.4.2" /> <id nullFlavor="NA" /> < code codeSystem="local" code="UCAN1" displayName="Cannabinoid" /> < statusCode code="completed" /> <effectiveTime value="" /> <value unit="NA" xsi:type="PQ" value="Negative" /> < referenceRange> <observationRange> <text /> < /observationRange> </referenceRange> </observation> </ component> <component> <observation moodCode="EVN" classCode="OBS"> <templateId root="16.840.1.080639.1022.4.2" /> <id nullFlavor="NA" /> <code codeSystem="local" code="UCOC1" displayName= "Cocaine" /> <statusCode code="completed" /> <effectiveTime value="" /> <value unit="NA" xsi:type="PQ" value="Negative " /> <referenceRange> <observationRange> <text /> </observationRange> </referenceRange> </ observation> </component> <component> <observation moodCode= "EVN" classCode="OBS"> <templateId root="216.840.1.075408.10.4.2 " /> <id nullFlavor="NA" /> <code codeSystem="local" code= "UMTD1" displayName="EDDP (Methadone met.)" /> <statusCode code= "completed" /> <effectiveTime value="" /> <value unit="NA" xsi:type="PQ" value="Negative" /> <referenceRange> <observationRange> <text /> </observationRange> </referenceRange> </observation> </component> <component> <observation moodCode="EVN" classCode="OBS"> <templateId root= "216.840.1.840544.07.02.22.4.2" /> <id nullFlavor="NA" /> < code codeSystem="local" code="UOPI1" displayName="Opiate" /> < statusCode code="completed" /> <effectiveTime value="" /> <value unit="NA" xsi:type="PQ" value="Negative" /> < referenceRange> <observationRange> <text /> < /observationRange> </referenceRange> </observation> </ component> <component> <observation moodCode="EVN" classCode="OBS"> <templateId root="16.840.1.559143.1022.4.2" /> <id nullFlavor="NA" /> <code codeSystem="local" code="UPCP1" displayName= "Phencyclidine (PCP)" /> <statusCode code="completed" /> < effectiveTime value="" /> <value unit="NA" xsi:type="PQ" value="Negative" /> <referenceRange> <observationRange> <text /> </observationRange> </referenceRange> </observation> </component> </organizer> </entry> <entry> < organizer moodCode="EVN" classCode="BATTERY"> <templateId root= "216.840.1.322428.10..22.4.1" /> <id nullFlavor="NA" /> <code codeSystem="local" code="UA" displayName="Urinalysis with reflex microscopic" / > <statusCode code="completed" /> <component> <observation moodCode="EVN" classCode="OBS"> <templateId root= "216.840.1.862680...4.2" /> <id nullFlavor="NA" /> < code codeSystem="local" code="UAPP" displayName="Appearance" /> < statusCode code="completed" /> <effectiveTime value="" /> <value unit="NA" xsi:type="PQ" value="Clear" /> < referenceRange> <observationRange> <text /> < /observationRange> </referenceRange> </observation> </ component> <component> <observation moodCode="EVN" classCode="OBS"> <templateId root="216.840.1.167142....4.2" /> <id nullFlavor="NA" /> <code codeSystem="local" code="UBIL" displayName= "Bilirubin" /> <statusCode code="completed" /> <effectiveTime value="" /> <value unit="NA" xsi:type="PQ" value="Negative " /> <referenceRange> <observationRange> <text> Negative</text> </observationRange> </referenceRange> </observation> </component> <component> <observation moodCode ="EVN" classCode="OBS"> <templateId root= "10.29.840.1.468203.10..22.4.2" /> <id nullFlavor="NA" /> < code codeSystem="local" code="UBLD" displayName="Blood" /> <statusCode code="completed" /> <effectiveTime value="" /> < value unit="NA" xsi:type="PQ" value="Pos 2+" /> <interpretationCode codeSystem="local" code="*" /> <referenceRange> < observationRange> <text>Negative</text> </ observationRange> </referenceRange> </observation> </ component> <component> <observation moodCode="EVN" classCode="OBS"> <templateId root="10.29.840.1.143866.07.02.22.4.2" /> <id nullFlavor="NA" /> <code codeSystem="local" code="UCOLR" displayName= "Color" /> <statusCode code="completed" /> <effectiveTime value="" /> <value unit="NA" xsi:type="PQ" value="Maite" / > <interpretationCode codeSystem="local" code="*" /> < referenceRange> <observationRange> <text /> < /observationRange> </referenceRange> </observation> </ component> <component> <observation moodCode="EVN" classCode="OBS"> <templateId root="10.29.840.1.255104.10.22.4.2" /> <id nullFlavor="NA" /> <code codeSystem="local" code="UGLU" displayName= "Glucose, Urine" /> <statusCode code="completed" /> < effectiveTime value="" /> <value unit="" xsi:type="PQ" value="Negative" /> <referenceRange> <observationRange> <text>Negative</text> </observationRange> </ referenceRange> </observation> </component> <component> <observation moodCode="EVN" classCode="OBS"> <templateId root= "216.840.1.270110.10.4.2" /> <id nullFlavor="NA" /> < code codeSystem="local" code="UKET" displayName="Ketones" /> < statusCode code="completed" /> <effectiveTime value="" /> <value unit="" xsi:type="PQ" value="Negative" /> < referenceRange> <observationRange> <text>Negative</text > </observationRange> </referenceRange> </observation > </component> <component> <observation moodCode="EVN" classCode="OBS"> <templateId root="10.29.840.1.939980.07.02.22.4.2" /> <id nullFlavor="NA" /> <code codeSystem="local" code="ULEU" displayName="Leukocyte Esterase" /> <statusCode code="completed" /> <effectiveTime value="" /> <value unit="NA" xsi:type ="PQ" value="Negative" /> <referenceRange> <observationRange > <text>Negative</text> </observationRange> </ referenceRange> </observation> </component> <component> <observation moodCode="EVN" classCode="OBS"> <templateId root= "10.29.840.1.906917.1022.4.2" /> <id nullFlavor="NA" /> < code codeSystem="local" code="UNIT" displayName="Nitrites" /> < statusCode code="completed" /> <effectiveTime value="" /> <value unit="NA" xsi:type="PQ" value="Negative" /> < referenceRange> <observationRange> <text>Negative</text > </observationRange> </referenceRange> </observation > </component> <component> <observation moodCode="EVN" classCode="OBS"> <templateId root="16.840.1.363587.1022.4.2" /> <id nullFlavor="NA" /> <code codeSystem="local" code="UPH" displayName="pH" /> <statusCode code="completed" /> < effectiveTime value="" /> <value unit="NA" xsi:type="PQ" value="6.0" /> <referenceRange> <observationRange> <text>5.0-8.0</text> </observationRange> </ referenceRange> </observation> </component> <component> <observation moodCode="EVN" classCode="OBS"> <templateId root= "10.29.840.1.478803.07.02.22.4.2" /> <id nullFlavor="NA" /> < code codeSystem="local" code="UPRO" displayName="Protein" /> < statusCode code="completed" /> <effectiveTime value="" /> <value unit="NA" xsi:type="PQ" value="Negative" /> < referenceRange> <observationRange> <text>Negative</text > </observationRange> </referenceRange> </observation > </component> <component> <observation moodCode="EVN" classCode="OBS"> <templateId root="10.29.840.1.938185.07.02.22.4.2" /> <id nullFlavor="NA" /> <code codeSystem="local" code="USPG" displayName="Specific [place]" /> <statusCode code="completed" /> <effectiveTime value="" /> <value unit="NA" xsi:type= "PQ" value="1.020" /> <referenceRange> <observationRange> <text>1.003-1.030</text> </observationRange> </ referenceRange> </observation> </component> <component> <observation moodCode="EVN" classCode="OBS"> <templateId root= "216.840.1.023324.10.22.4.2" /> <id nullFlavor="NA" /> < code codeSystem="local" code="UTYP" displayName="UA Collection type" /> <statusCode code="completed" /> <effectiveTime value="931673907359" / > <value unit="NA" xsi:type="PQ" value="Catheter" /> < referenceRange> <observationRange> <text /> < /observationRange> </referenceRange> </observation> </ component> <component> <observation moodCode="EVN" classCode="OBS"> <templateId root="16.840.1.981222.10...4.2" /> <id nullFlavor="NA" /> <code codeSystem="local" code="UURO" displayName= "Urobilinogen" /> <statusCode code="completed" /> < effectiveTime value="[id number]" /> <value unit="mg/dL" xsi:type="PQ " value="2.0" /> <interpretationCode codeSystem="local" code="*" /> <referenceRange> <observationRange> <text><1.0 </text> </observationRange> </referenceRange> </ observation> </component> </organizer> </entry> <entry> <organizer moodCode="EVN" classCode="BATTERY"> <templateId root= "216.840.1.917514.10..22.4.1" /> <id nullFlavor="NA" /> <code codeSystem="local" code="UMIC" displayName="Urine Microscopic" /> < statusCode code="completed" /> <component> <observation moodCode= "EVN" classCode="OBS"> <templateId root="10.29.840.1.391220.10.4.2 " /> <id nullFlavor="NA" /> <code codeSystem="local" code= "UBAC" displayName="Bacteria" /> <statusCode code="completed" /> <effectiveTime value="" /> <value unit="NA" xsi:type= "PQ" value="None Seen" /> <referenceRange> <observationRange > <text /> </observationRange> </referenceRange > </observation> </component> <component> <observation moodCode="EVN" classCode="OBS"> <templateId root= "840.1.093657.07.02.22.4.2" /> <id nullFlavor="NA" /> < code codeSystem="local" code="UEPI" displayName="Epithelial Cells" /> < statusCode code="completed" /> <effectiveTime value="" /> <value unit="/HPF" xsi:type="PQ" value="None Seen" /> < referenceRange> <observationRange> <text /> < /observationRange> </referenceRange> </observation> </ component> <component> <observation moodCode="EVN" classCode="OBS"> <templateId root="840.1.404565.07.02.22.4.2" /> <id nullFlavor="NA" /> <code codeSystem="local" code="URBC" displayName= "RBC, Urine" /> <statusCode code="completed" /> < effectiveTime value="" /> <value unit="/HPF" xsi:type="PQ" value="2" /> <referenceRange> <observationRange> <text>0-2</text> </observationRange> </referenceRange> </observation> </component> <component> <observation moodCode="EVN" classCode="OBS"> <templateId root= "16.840.1.844844.10...4.2" /> <id nullFlavor="NA" /> < code codeSystem="local" code="UMUC" displayName="Urine Mucus" /> < statusCode code="completed" /> <effectiveTime value="" /> <value unit="NA" xsi:type="PQ" value="Present" /> < referenceRange> <observationRange> <text /> < /observationRange> </referenceRange> </observation> </ component> <component> <observation moodCode="EVN" classCode="OBS"> <templateId root="10.29.840.1.489081.10..4.2" /> <id nullFlavor="NA" /> <code codeSystem="local" code="UWBC" displayName= "WBC, Urine" /> <statusCode code="completed" /> < effectiveTime value="[id number]" /> <value unit="/HPF" xsi:type="PQ" value="0" /> <referenceRange> <observationRange> <text>0-4</text> </observationRange> </referenceRange> </observation> </component> </organizer> </entry> <entry> < organizer moodCode="EVN" classCode="BATTERY"> <templateId root= "10.29.840.1.964021.10...4.1" /> <id nullFlavor="NA" /> <code codeSystem="local" code="LACID" displayName="Lactic Acid Venous" /> < statusCode code="completed" /> <component> <observation moodCode= "EVN" classCode="OBS"> <templateId root="2.16.840.1.520422.10..22.4.2 " /> <id nullFlavor="NA" /> <code codeSystem="local" code= "LACID" displayName="Lactic Acid Venous" /> <statusCode code="completed " /> <effectiveTime value="[id number]" /> <value unit="mEq/L " xsi:type="PQ" value="0.9" /> <referenceRange> < observationRange> <text>0.5-2.2</text> </ observationRange> </referenceRange> </observation> </ component> </organizer> </entry> <entry> <organizer moodCode="EVN" classCode="BATTERY"> <templateId root="2.16.840.1.448675.10..22.4.1" /> <id nullFlavor="NA" /> <code codeSystem="local" code="CBCWD" displayName="CBC With Platelet and Differential" /> <statusCode code= "completed" /> <component> <observation moodCode="EVN" classCode= "OBS"> <templateId root="2.16.840.1.908594.10.20.22.4.2" /> < id nullFlavor="NA" /> <code codeSystem="local" code="ABASR" displayName ="Absolute Basophils" /> <statusCode code="completed" /> < effectiveTime value="[id number]" /> <value unit="10*3/uL" xsi:type= "PQ" value="0.01" /> <referenceRange> <observationRange> <text>0.00-0.20</text> </observationRange> </ referenceRange> </observation> </component> <component> <observation moodCode="EVN" classCode="OBS"> <templateId root= "16.840.1.492930.10.20.22.4.2" /> <id nullFlavor="NA" /> < code codeSystem="local" code="AEOSR" displayName="Absolute Eosinophils" /> <statusCode code="completed" /> <effectiveTime value=" " /> <value unit="10*3/uL" xsi:type="PQ" value="0.05" /> < referenceRange> <observationRange> <text>0.00-0.50</text > </observationRange> </referenceRange> </observation > </component> <component> <observation moodCode="EVN" classCode="OBS"> <templateId root="10.29.840.1.711640.10.22.4.2" /> <id nullFlavor="NA" /> <code codeSystem="local" code="ALYMR" displayName="Absolute Lymphocytes" /> <statusCode code="completed" /> <effectiveTime value="" /> <value unit="10*3/uL" xsi:type="PQ" value="1.08" /> <referenceRange> < observationRange> <text>0.80-3.30</text> </ observationRange> </referenceRange> </observation> </ component> <component> <observation moodCode="EVN" classCode="OBS"> <templateId root="16.840.1.133714.10.2022.4.2" /> <id nullFlavor="NA" /> <code codeSystem="local" code="AMONR" displayName= "Absolute Monocytes" /> <statusCode code="completed" /> < effectiveTime value="" /> <value unit="10*3/uL" xsi:type= "PQ" value="1.23" /> <interpretationCode codeSystem="local" code="*" / > <referenceRange> <observationRange> <text> 0.30-1.00</text> </observationRange> </referenceRange> </observation> </component> <component> <observation moodCode="EVN" classCode="OBS"> <templateId root= "16.840.1.880869.10.20.22.4.2" /> <id nullFlavor="NA" /> < code codeSystem="local" code="ASEGR" displayName="Absolute Neutrophils" /> <statusCode code="completed" /> <effectiveTime value=" " /> <value unit="10*3/uL" xsi:type="PQ" value="12.55" /> < interpretationCode codeSystem="local" code="*" /> <referenceRange> <observationRange> <text>1.90-7.00</text> </ observationRange> </referenceRange> </observation> </ component> <component> <observation moodCode="EVN" classCode="OBS"> <templateId root="10.29.840.1.631700.10.4.2" /> <id nullFlavor="NA" /> <code codeSystem="local" code="BASOR" displayName= "Basophils" /> <statusCode code="completed" /> <effectiveTime value="" /> <value unit="%" xsi:type="PQ" value="0" /> <referenceRange> <observationRange> <text>0-2< /text> </observationRange> </referenceRange> </ observation> </component> <component> <observation moodCode= "EVN" classCode="OBS"> <templateId root="16.840.1.187111.10.20.22.4.2 " /> <id nullFlavor="NA" /> <code codeSystem="local" code= "EOSR" displayName="Eosinophils" /> <statusCode code="completed" /> <effectiveTime value="" /> <value unit="%" xsi: type="PQ" value="0" /> <referenceRange> <observationRange> <text>0-4</text> </observationRange> </ referenceRange> </observation> </component> <component> <observation moodCode="EVN" classCode="OBS"> <templateId root= "2.16.840.1.212394.10.20.22.4.2" /> <id nullFlavor="NA" /> < code codeSystem="local" code="HCT" displayName="HCT" /> <statusCode code="completed" /> <effectiveTime value="" /> < value unit="%" xsi:type="PQ" value="37.7" /> <interpretationCode codeSystem="local" code="*" /> <referenceRange> < observationRange> <text>42.0-52.0</text> </ observationRange> </referenceRange> </observation> </ component> <component> <observation moodCode="EVN" classCode="OBS"> <templateId root="2.16.840.1.068226.10.20.22.4.2" /> <id nullFlavor="NA" /> <code codeSystem="local" code="HGB" displayName="HGB " /> <statusCode code="completed" /> <effectiveTime value= "" /> <value unit="g/dL" xsi:type="PQ" value="12.5" /> <interpretationCode codeSystem="local" code="*" /> < referenceRange> <observationRange> <text>14.0-18.0</text > </observationRange> </referenceRange> </observation > </component> <component> <observation moodCode="EVN" classCode="OBS"> <templateId root="16.840.1.765672.10.2022.4.2" /> <id nullFlavor="NA" /> <code codeSystem="local" code="IMGA" displayName="Immature Granulocytes" /> <statusCode code="completed" /> <effectiveTime value="" /> <value unit="%" xsi:type="PQ" value="1.0" /> <referenceRange> < observationRange> <text>0.0-1.0</text> </ observationRange> </referenceRange> </observation> </ component> <component> <observation moodCode="EVN" classCode="OBS"> <templateId root="16.840.1.458096.10.4.2" /> <id nullFlavor="NA" /> <code codeSystem="local" code="LYMPR" displayName= "Lymphocytes" /> <statusCode code="completed" /> < effectiveTime value="" /> <value unit="%" xsi:type="PQ " value="7" /> <interpretationCode codeSystem="local" code="*" /> <referenceRange> <observationRange> <text>20-46</ text> </observationRange> </referenceRange> </ observation> </component> <component> <observation moodCode= "EVN" classCode="OBS"> <templateId root="16.840.1.522909.10.20.22.4.2 " /> <id nullFlavor="NA" /> <code codeSystem="local" code="MCH " displayName="MCH" /> <statusCode code="completed" /> < effectiveTime value="" /> <value unit="pg" xsi:type="PQ" value="27.1" /> <referenceRange> <observationRange> <text>27.0-32.0</text> </observationRange> </ referenceRange> </observation> </component> <component> <observation moodCode="EVN" classCode="OBS"> <templateId root= "10.29.840.1.401004.10.20.22.4.2" /> <id nullFlavor="NA" /> < code codeSystem="local" code="MCHC" displayName="MCHC" /> <statusCode code="completed" /> <effectiveTime value="" /> < value unit="g/dL" xsi:type="PQ" value="33.2" /> <referenceRange> <observationRange> <text>32.0-36.0</text> </ observationRange> </referenceRange> </observation> </ component> <component> <observation moodCode="EVN" classCode="OBS"> <templateId root="10.29.840.1.783816.10...4.2" /> <id nullFlavor="NA" /> <code codeSystem="local" code="MCV" displayName="MCV " /> <statusCode code="completed" /> <effectiveTime value= "" /> <value unit="fL" xsi:type="PQ" value="81.6" /> <interpretationCode codeSystem="local" code="*" /> <referenceRange > <observationRange> <text>82.0-99.0</text> < /observationRange> </referenceRange> </observation> </ component> <component> <observation moodCode="EVN" classCode="OBS"> <templateId root="10.29.840.1.819408.10.20.22.4.2" /> <id nullFlavor="NA" /> <code codeSystem="local" code="MONOR" displayName= "Monocytes" /> <statusCode code="completed" /> <effectiveTime value="" /> <value unit="%" xsi:type="PQ" value="8" /> <referenceRange> <observationRange> <text>4-11 </text> </observationRange> </referenceRange> </ observation> </component> <component> <observation moodCode= "EVN" classCode="OBS"> <templateId root="216.840.1.368637.10.20.22.4.2 " /> <id nullFlavor="NA" /> <code codeSystem="local" code="MPV " displayName="MPV" /> <statusCode code="completed" /> < effectiveTime value="" /> <value unit="fL" xsi:type="PQ" value="9.1" /> <interpretationCode codeSystem="local" code="*" /> <referenceRange> <observationRange> <text>9.4-12.3< /text> </observationRange> </referenceRange> </ observation> </component> <component> <observation moodCode= "EVN" classCode="OBS"> <templateId root="216.840.1.104207.10.20.22.4.2 " /> <id nullFlavor="NA" /> <code codeSystem="local" code= "SEGR" displayName="Neutrophils" /> <statusCode code="completed" /> <effectiveTime value="" /> <value unit="%" xsi: type="PQ" value="83" /> <interpretationCode codeSystem="local" code="* " /> <referenceRange> <observationRange> <text> 51-75</text> </observationRange> </referenceRange> </ observation> </component> <component> <observation moodCode= "EVN" classCode="OBS"> <templateId root="10.29.840.1.572795.10..22.4.2 " /> <id nullFlavor="NA" /> <code codeSystem="local" code= "NRBCA" displayName="Nucleated RBC Automated" /> <statusCode code= "completed" /> <effectiveTime value="" /> <value unit="/100WBC" xsi:type="PQ" value="0.0" /> <referenceRange> <observationRange> <text /> </observationRange> </referenceRange> </observation> </component> <component> <observation moodCode="EVN" classCode="OBS"> <templateId root= "10.29.840.1.337589.22.4.2" /> <id nullFlavor="NA" /> < code codeSystem="local" code="PLT" displayName="Platelet Count" /> < statusCode code="completed" /> <effectiveTime value="" /> <value unit="K/uL" xsi:type="PQ" value="305" /> < referenceRange> <observationRange> <text>150-400</text> </observationRange> </referenceRange> </observation > </component> <component> <observation moodCode="EVN" classCode="OBS"> <templateId root="10.29.840.1.116344.1022.4.2" /> <id nullFlavor="NA" /> <code codeSystem="local" code="RBC" displayName="RBC" /> <statusCode code="completed" /> < effectiveTime value="" /> <value unit="10*6/uL" xsi:type= "PQ" value="4.62" /> <referenceRange> <observationRange> <text>4.60-6.20</text> </observationRange> </ referenceRange> </observation> </component> <component> <observation moodCode="EVN" classCode="OBS"> <templateId root= "216.840.1.045510.10..22.4.2" /> <id nullFlavor="NA" /> < code codeSystem="local" code="RDW" displayName="RDW" /> <statusCode code="completed" /> <effectiveTime value="" /> < value unit="%" xsi:type="PQ" value="14.1" /> <referenceRange> <observationRange> <text>11.5-14.5</text> </ observationRange> </referenceRange> </observation> </ component> <component> <observation moodCode="EVN" classCode="OBS"> <templateId root="216.840.1.813578.07.02.22.4.2" /> <id nullFlavor="NA" /> <code codeSystem="local" code="WBCIR" displayName= "WBC" /> <statusCode code="completed" /> <effectiveTime value= "" /> <value unit="K/uL" xsi:type="PQ" value="15.1" /> <interpretationCode codeSystem="local" code="*" /> < referenceRange> <observationRange> <text>4.8-10.8</text > </observationRange> </referenceRange> </observation > </component> </organizer> </entry> <entry> <organizer moodCode= "EVN" classCode="BATTERY"> <templateId root="2.16.840.1.112556.10.22.4.1 " /> <id nullFlavor="NA" /> <code codeSystem="local" code="BMP" displayName="Basic Metabolic Panel (BMP)" /> <statusCode code="completed" / > <component> <observation moodCode="EVN" classCode="OBS"> <templateId root="16.840.1.545382.10..22.4.2" /> <id nullFlavor="NA " /> <code codeSystem="local" code="AGAP" displayName="Anion Gap" /> <statusCode code="completed" /> <effectiveTime value= "" /> <value unit="mEq/L" xsi:type="PQ" value="8" /> <referenceRange> <observationRange> <text>3-20</text > </observationRange> </referenceRange> </observation > </component> <component> <observation moodCode="EVN" classCode="OBS"> <templateId root="16.840.1.750009...4.2" /> <id nullFlavor="NA" /> <code codeSystem="local" code="BUN" displayName="BUN" /> <statusCode code="completed" /> < effectiveTime value="" /> <value unit="mg/dL" xsi:type="PQ " value="15" /> <referenceRange> <observationRange> <text>4-20</text> </observationRange> </referenceRange > </observation> </component> <component> <observation moodCode="EVN" classCode="OBS"> <templateId root= "10.29.840.1.523665.10..22.4.2" /> <id nullFlavor="NA" /> < code codeSystem="local" code="CA" displayName="Calcium" /> <statusCode code="completed" /> <effectiveTime value="" /> < value unit="mg/dL" xsi:type="PQ" value="8.3" /> <interpretationCode codeSystem="local" code="*" /> <referenceRange> < observationRange> <text>8.6-10.0</text> </ observationRange> </referenceRange> </observation> </ component> <component> <observation moodCode="EVN" classCode="OBS"> <templateId root="16.840.1.901907.10.20.22.4.2" /> <id nullFlavor="NA" /> <code codeSystem="local" code="CL" displayName= "Chloride" /> <statusCode code="completed" /> <effectiveTime value="935979348927" /> <value unit="mEq/L" xsi:type="PQ" value="96" / > <interpretationCode codeSystem="local" code="*" /> < referenceRange> <observationRange> <text>99-109</text> </observationRange> </referenceRange> </observation> </component> <component> <observation moodCode="EVN" classCode ="OBS"> <templateId root="10.29.840.1.208996.10.22.4.2" /> < id nullFlavor="NA" /> <code codeSystem="local" code="CO2" displayName= "CO2" /> <statusCode code="completed" /> <effectiveTime value= "097328792175" /> <value unit="mEq/L" xsi:type="PQ" value="29" /> <referenceRange> <observationRange> <text>22-32</ text> </observationRange> </referenceRange> </ observation> </component> <component> <observation moodCode= "EVN" classCode="OBS"> <templateId root="10.29.840.1.174027.10.20.22.4.2 " /> <id nullFlavor="NA" /> <code codeSystem="local" code= "CREAT" displayName="Creatinine" /> <statusCode code="completed" /> <effectiveTime value="778603980166" /> <value unit="mg/dL" xsi: type="PQ" value="1.04" /> <referenceRange> <observationRange > <text>0.64-1.27</text> </observationRange> </ referenceRange> </observation> </component> <component> <observation moodCode="EVN" classCode="OBS"> <templateId root= "16.840.1.799149.10..22.4.2" /> <id nullFlavor="NA" /> < code codeSystem="local" code="GLU" displayName="Glucose" /> < statusCode code="completed" /> <effectiveTime value="511733317616" /> <value unit="mg/dL" xsi:type="PQ" value="110" /> < interpretationCode codeSystem="local" code="*" /> <referenceRange> <observationRange> <text>70-100</text> </ observationRange> </referenceRange> </observation> </ component> <component> <observation moodCode="EVN" classCode="OBS"> <templateId root="16.840.1.974813.10.20.22.4.2" /> <id nullFlavor="NA" /> <code codeSystem="local" code="K" displayName= "Potassium" /> <statusCode code="completed" /> <effectiveTime value="446632247838" /> <value unit="mEq/L" xsi:type="PQ" value="2.9" / > <interpretationCode codeSystem="local" code="*" /> < referenceRange> <observationRange> <text>3.6-5.1</text> </observationRange> </referenceRange> </observation > </component> <component> <observation moodCode="EVN" classCode="OBS"> <templateId root="16.840.1.620000.10.20.22.4.2" /> <id nullFlavor="NA" /> <code codeSystem="local" code="NA" displayName="Sodium" /> <statusCode code="completed" /> < effectiveTime value="221150237432" /> <value unit="mEq/L" xsi:type="PQ " value="133" /> <interpretationCode codeSystem="local" code="*" /> <referenceRange> <observationRange> <text>136-144 </text> </observationRange> </referenceRange> </ observation> </component> </organizer> </entry> <entry> <organizer moodCode="EVN" classCode="BATTERY"> <templateId root= "216.840.1.989789.10.20.22.4.1" /> <id nullFlavor="NA" /> <code codeSystem="local" code="MG" displayName="Magnesium" /> <statusCode code= "completed" /> <component> <observation moodCode="EVN" classCode= "OBS"> <templateId root="16.840.1.462308.10.20.22.4.2" /> < id nullFlavor="NA" /> <code codeSystem="local" code="MG" displayName= "Magnesium" /> <statusCode code="completed" /> <effectiveTime value="515975846091" /> <value unit="mg/dL" xsi:type="PQ" value="2.2" / > <referenceRange> <observationRange> <text>1.8 -2.5</text> </observationRange> </referenceRange> </ observation> </component> </organizer> </entry> <entry> <organizer moodCode="EVN" classCode="BATTERY"> <templateId root= "840.1.002331.10.22.4.1" /> <id nullFlavor="NA" /> <code codeSystem="local" code="PHOS" displayName="Phosphorus" /> <statusCode code ="completed" /> <component> <observation moodCode="EVN" classCode= "OBS"> <templateId root="10.29.840.1.948270.07.02.22.4.2" /> < id nullFlavor="NA" /> <code codeSystem="local" code="PHOS" displayName= "Phosphorus" /> <statusCode code="completed" /> < effectiveTime value="" /> <value unit="mg/dL" xsi:type="PQ " value="3.0" /> <referenceRange> <observationRange> <text>2.4-4.7</text> </observationRange> </ referenceRange> </observation> </component> </organizer> </entry > <entry> <organizer moodCode="EVN" classCode="BATTERY"> <templateId root="10.29.840.1.254758.07.02.22.4.1" /> <id nullFlavor="NA" /> <code codeSystem="local" code="GFR" displayName="eGFR" /> <statusCode code= "completed" /> <component> <observation moodCode="EVN" classCode= "OBS"> <templateId root="10.29.840.1.444712.10.4.2" /> < id nullFlavor="NA" /> <code codeSystem="local" code="GFR" displayName= "eGFR" /> <statusCode code="completed" /> <effectiveTime value ="795027010966" /> <value unit="mL/min" xsi:type="PQ" value=">60" / > <referenceRange> <observationRange> <text>&gt ;60</text> </observationRange> </referenceRange> </ observation> </component> </organizer> </entry> <entry> <organizer moodCode="EVN" classCode="BATTERY"> <templateId root= "16.840.1.542919.10..22.4.1" /> <id nullFlavor="NA" /> <code codeSystem="local" code="CPK" displayName="Creatine Kinase (CPK)" /> < statusCode code="completed" /> <component> <observation moodCode= "EVN" classCode="OBS"> <templateId root="10.29.840.1.247289...4.2 " /> <id nullFlavor="NA" /> <code codeSystem="local" code="CPK " displayName="Creatine Kinase (CPK)" /> <statusCode code="completed" / > <effectiveTime value="946035843811" /> <value unit="U/L" xsi :type="PQ" value="22" /> <interpretationCode codeSystem="local" code="* " /> <referenceRange> <observationRange> <text> 49-397</text> </observationRange> </referenceRange> < /observation> </component> </organizer> </entry> <entry> < organizer moodCode="EVN" classCode="BATTERY"> <templateId root= "10.29.840.1.413339.10...4.1" /> <id nullFlavor="NA" /> <code codeSystem="local" code="PCT" displayName="Procalcitonin" /> <statusCode code="completed" /> <component> <observation moodCode="EVN" classCode="OBS"> <templateId root="10.29.840.1.987556.10.4.2" /> <id nullFlavor="NA" /> <code codeSystem="local" code="PCT" displayName="Procalcitonin" /> <statusCode code="completed" /> <effectiveTime value="405450517302" /> <value unit="ng/mL" xsi:type= "PQ" value="0.75" /> <interpretationCode codeSystem="local" code="*" / > <referenceRange> <observationRange> <text> 0.00-0.09</text> </observationRange> </referenceRange> </observation> </component> </organizer> </entry> <entry> < organizer moodCode="EVN" classCode="BATTERY"> <templateId root= "216.840.1.329338.07.02.22.4.1" /> <id nullFlavor="NA" /> <code codeSystem="local" code="LIPID" displayName="Lipid Panel" /> <statusCode code="completed" /> <component> <observation moodCode="EVN" classCode="OBS"> <templateId root="16.840.1.064442.07.02.22.4.2" /> <id nullFlavor="NA" /> <code codeSystem="local" code="CHR" displayName="Cardiac Risk" /> <statusCode code="completed" /> <effectiveTime value="511735423282" /> <value unit="" xsi:type="PQ" value="5.8" /> <interpretationCode codeSystem="local" code="*" /> <referenceRange> <observationRange> <text>0.0-5.7</ text> </observationRange> </referenceRange> </ observation> </component> <component> <observation moodCode= "EVN" classCode="OBS"> <templateId root="16.840.1.743126.07.02.22.4.2 " /> <id nullFlavor="NA" /> <code codeSystem="local" code= "CHOL" displayName="Cholesterol" /> <statusCode code="completed" /> <effectiveTime value="588938185241" /> <value unit="mg/dL" xsi: type="PQ" value="111" /> <referenceRange> <observationRange > <text>0-199</text> </observationRange> </ referenceRange> </observation> </component> <component> <observation moodCode="EVN" classCode="OBS"> <templateId root= "2.16.840.1.554304.07.02.22.4.2" /> <id nullFlavor="NA" /> < code codeSystem="local" code="HDL" displayName="HDL Cholesterol" /> < statusCode code="completed" /> <effectiveTime value="975629758775" /> <value unit="mg/dL" xsi:type="PQ" value="19" /> < interpretationCode codeSystem="local" code="*" /> <referenceRange> <observationRange> <text>40-84</text> </ observationRange> </referenceRange> </observation> </ component> <component> <observation moodCode="EVN" classCode="OBS"> <templateId root="2.16.840.1.539909...4.2" /> <id nullFlavor="NA" /> <code codeSystem="local" code="LDL" displayName=" LDL Cholesterol" /> <statusCode code="completed" /> < effectiveTime value="051874699628" /> <value unit="mg/dL" xsi:type="PQ " value="74" /> <referenceRange> <observationRange> <text>0-130</text> </observationRange> </ referenceRange> </observation> </component> <component> <observation moodCode="EVN" classCode="OBS"> <templateId root= "840.1.681575.10..4.2" /> <id nullFlavor="NA" /> < code codeSystem="local" code="TRIG" displayName="Triglycerides" /> < statusCode code="completed" /> <effectiveTime value="173884211142" /> <value unit="mg/dL" xsi:type="PQ" value="88" /> < referenceRange> <observationRange> <text>0-149</text> </observationRange> </referenceRange> </observation> </component> <component> <observation moodCode="EVN" classCode= "OBS"> <templateId root="840.1.257835.07.02.22.4.2" /> < id nullFlavor="NA" /> <code codeSystem="local" code="VLDL" displayName= "VLDL Cholesterol" /> <statusCode code="completed" /> < effectiveTime value="838924697005" /> <value unit="mg/dL" xsi:type="PQ " value="18" /> <referenceRange> <observationRange> <text>0-28</text> </observationRange> </referenceRange > </observation> </component> </organizer> </entry> <entry> <organizer moodCode="EVN" classCode="BATTERY"> <templateId root= "840.1.641549.1022.4.1" /> <id nullFlavor="NA" /> <code codeSystem="local" code="TSHR" displayName="TSH with Reflex Free T4" /> < statusCode code="completed" /> <component> <observation moodCode= "EVN" classCode="OBS"> <templateId root="840.1.305886.07.02.22.4.2 " /> <id nullFlavor="NA" /> <code codeSystem="local" code= "TSHR" displayName="TSH with Reflex Free T4" /> <statusCode code= "completed" /> <effectiveTime value="769801761762" /> <value unit="uIU/mL" xsi:type="PQ" value="0.18" /> <interpretationCode codeSystem="local" code="*" /> <referenceRange> < observationRange> <text>0.35-4.94</text> </ observationRange> </referenceRange> </observation> </ component> </organizer> </entry> <entry> <organizer moodCode="EVN" classCode="BATTERY"> <templateId root="16.840.1.101619.07.02.22.4.1" /> <id nullFlavor="NA" /> <code codeSystem="local" code="LIPID" displayName="Lipid Panel" /> <statusCode code="completed" /> < component> <observation moodCode="EVN" classCode="OBS"> < templateId root="16.840.1.188194.07.02.22.4.2" /> <id nullFlavor="NA " /> <code codeSystem="local" code="CHR" displayName="Cardiac Risk" /> <statusCode code="completed" /> <effectiveTime value= "182232595077" /> <value unit="" xsi:type="PQ" value="4.6" /> <referenceRange> <observationRange> <text>0.0-5.7</text > </observationRange> </referenceRange> </observation > </component> <component> <observation moodCode="EVN" classCode="OBS"> <templateId root="16.840.1.416326.07.02.22.4.2" /> <id nullFlavor="NA" /> <code codeSystem="local" code="CHOL" displayName="Cholesterol" /> <statusCode code="completed" /> < effectiveTime value="971468577455" /> <value unit="mg/dL" xsi:type="PQ " value="110" /> <referenceRange> <observationRange> <text>0-199</text> </observationRange> </ referenceRange> </observation> </component> <component> <observation moodCode="EVN" classCode="OBS"> <templateId root= "2.16.840.1.612371.10.20.22.4.2" /> <id nullFlavor="NA" /> < code codeSystem="local" code="HDL" displayName="HDL Cholesterol" /> < statusCode code="completed" /> <effectiveTime value="723983596308" /> <value unit="mg/dL" xsi:type="PQ" value="24" /> < interpretationCode codeSystem="local" code="*" /> <referenceRange> <observationRange> <text>40-84</text> </ observationRange> </referenceRange> </observation> </ component> <component> <observation moodCode="EVN" classCode="OBS"> <templateId root="2.16.840.1.130882.10..22.4.2" /> <id nullFlavor="NA" /> <code codeSystem="local" code="LDL" displayName=" LDL Cholesterol" /> <statusCode code="completed" /> < effectiveTime value="238059025567" /> <value unit="mg/dL" xsi:type="PQ " value="73" /> <referenceRange> <observationRange> <text>0-130</text> </observationRange> </ referenceRange> </observation> </component> <component> <observation moodCode="EVN" classCode="OBS"> <templateId root= "840.1.520344.10.2022.4.2" /> <id nullFlavor="NA" /> < code codeSystem="local" code="TRIG" displayName="Triglycerides" /> < statusCode code="completed" /> <effectiveTime value="563715286789" /> <value unit="mg/dL" xsi:type="PQ" value="67" /> < referenceRange> <observationRange> <text>0-149</text> </observationRange> </referenceRange> </observation> </component> <component> <observation moodCode="EVN" classCode= "OBS"> <templateId root="840.1.220466.22.4.2" /> < id nullFlavor="NA" /> <code codeSystem="local" code="VLDL" displayName= "VLDL Cholesterol" /> <statusCode code="completed" /> < effectiveTime value="729504440255" /> <value unit="mg/dL" xsi:type="PQ " value="13" /> <referenceRange> <observationRange> <text>0-28</text> </observationRange> </referenceRange > </observation> </component> </organizer> </entry> <entry> <organizer moodCode="EVN" classCode="BATTERY"> <templateId root= "840.1.189456.102022.4.1" /> <id nullFlavor="NA" /> <code codeSystem="local" code="B12" displayName="Vitamin B12" /> <statusCode code ="completed" /> <component> <observation moodCode="EVN" classCode= "OBS"> <templateId root="840.1.110046.102022.4.2" /> < id nullFlavor="NA" /> <code codeSystem="local" code="B12" displayName= "Vitamin B12" /> <statusCode code="completed" /> < effectiveTime value="515884577824" /> <value unit="pg/mL" xsi:type="PQ " value="459" /> <referenceRange> <observationRange> <text>213-816</text> </observationRange> </ referenceRange> </observation> </component> </organizer> </entry > <entry> <organizer moodCode="EVN" classCode="BATTERY"> <templateId root="216.840.1.064481.10..22.4.1" /> <id nullFlavor="NA" /> <code codeSystem="local" code="FT4" displayName="Free T4" /> <statusCode code= "completed" /> <component> <observation moodCode="EVN" classCode= "OBS"> <templateId root="216.840.1.889496.10..22.4.2" /> < id nullFlavor="NA" /> <code codeSystem="local" code="FT4" displayName= "Free T4" /> <statusCode code="completed" /> <effectiveTime value="665484301825" /> <value unit="ng/dL" xsi:type="PQ" value="1.3" / > <referenceRange> <observationRange> <text>0.7 -1.5</text> </observationRange> </referenceRange> </ observation> </component> </organizer> </entry> <entry> <organizer moodCode="EVN" classCode="BATTERY"> <templateId root= "216.840.1.227079.10..22.4.1" /> <id nullFlavor="NA" /> <code codeSystem="local" code="RPR" displayName="RPR" /> <statusCode code= "completed" /> <component> <observation moodCode="EVN" classCode= "OBS"> <templateId root="216.840.1.066223.10..22.4.2" /> < id nullFlavor="NA" /> <code codeSystem="local" code="RPR" displayName= "RPR" /> <statusCode code="completed" /> <effectiveTime value= "783464103677" /> <value unit="NA" xsi:type="PQ" value="Non-reactive" / > <referenceRange> <observationRange> <text /> </observationRange> </referenceRange> </observation > </component> </organizer> </entry> <entry> <organizer moodCode= "EVN" classCode="BATTERY"> <templateId root="216.840.1.916437.10..22.4.1 " /> <id nullFlavor="NA" /> <code codeSystem="local" code="HA1C" displayName="Hemoglobin A1C" /> <statusCode code="completed" /> < component> <observation moodCode="EVN" classCode="OBS"> < templateId root="216.840.1.709510.10..22.4.2" /> <id nullFlavor="NA " /> <code codeSystem="local" code="HA1C" displayName="Hemoglobin A1C" /> <statusCode code="completed" /> <effectiveTime value= "386494202502" /> <value unit="%" xsi:type="PQ" value="5.9" /> <interpretationCode codeSystem="local" code="*" /> < referenceRange> <observationRange> <text>4.1-5.6</text> </observationRange> </referenceRange> </observation > </component> </organizer> </entry> <entry> <organizer moodCode= "EVN" classCode="BATTERY"> <templateId root="10.29.840.1.870326.10..4.1 " /> <id nullFlavor="NA" /> <code codeSystem="local" code="EAG" displayName="Estimated Average Glucose" /> <statusCode code="completed" /> <component> <observation moodCode="EVN" classCode="OBS"> < templateId root="840.1.111479.22.4.2" /> <id nullFlavor="NA " /> <code codeSystem="local" code="EAG" displayName="Estimated Average Glucose" /> <statusCode code="completed" /> < effectiveTime value="078589500222" /> <value unit="mg/dL" xsi:type="PQ " value="122.6" /> <referenceRange> <observationRange> <text /> </observationRange> </referenceRange> </observation> </component> </organizer> </entry> <entry> < organizer moodCode="EVN" classCode="BATTERY"> <templateId root= "840.1.626198.07.02.22.4.1" /> <id nullFlavor="NA" /> <code codeSystem="local" code="25OHD" displayName="Vitamin D, 25-Hydroxy" /> < statusCode code="completed" /> <component> <observation moodCode= "EVN" classCode="OBS"> <templateId root="10.29.840.1.476456....4.2 " /> <id nullFlavor="NA" /> <code codeSystem="local" code= "VITDT" displayName="25-Hydroxy D Total" /> <statusCode code="completed " /> <effectiveTime value="250629896802" /> <value unit="ng/mL " xsi:type="PQ" value="46" /> <referenceRange> < observationRange> <text>30-100</text> </observationRange > </referenceRange> </observation> </component> </ organizer> </entry> <entry> <organizer moodCode="EVN" classCode="BATTERY"> <templateId root="10.29.840.1.676830.10.22.4.1" /> <id nullFlavor= "NA" /> <code codeSystem="local" code="CBCND" displayName="CBC With Platelet No Differential" /> <statusCode code="completed" /> < component> <observation moodCode="EVN" classCode="OBS"> < templateId root="10.29.840.1.398522.10..4.2" /> <id nullFlavor="NA " /> <code codeSystem="local" code="HCT" displayName="HCT" /> <statusCode code="completed" /> <effectiveTime value="701254222494" /> <value unit="%" xsi:type="PQ" value="36.3" /> < interpretationCode codeSystem="local" code="*" /> <referenceRange> <observationRange> <text>42.0-52.0</text> </ observationRange> </referenceRange> </observation> </ component> <component> <observation moodCode="EVN" classCode="OBS"> <templateId root="10.29.840.1.605404.10.22.4.2" /> <id nullFlavor="NA" /> <code codeSystem="local" code="HGB" displayName="HGB " /> <statusCode code="completed" /> <effectiveTime value= "973886063016" /> <value unit="g/dL" xsi:type="PQ" value="12.0" /> <interpretationCode codeSystem="local" code="*" /> < referenceRange> <observationRange> <text>14.0-18.0</text > </observationRange> </referenceRange> </observation > </component> <component> <observation moodCode="EVN" classCode="OBS"> <templateId root="216.840.1.756054.10..22.4.2" /> <id nullFlavor="NA" /> <code codeSystem="local" code="MCH" displayName="MCH" /> <statusCode code="completed" /> < effectiveTime value="922474416219" /> <value unit="pg" xsi:type="PQ" value="27.1" /> <referenceRange> <observationRange> <text>27.0-32.0</text> </observationRange> </ referenceRange> </observation> </component> <component> <observation moodCode="EVN" classCode="OBS"> <templateId root= "10.29.840.1.288732.10..4.2" /> <id nullFlavor="NA" /> < code codeSystem="local" code="MCHC" displayName="MCHC" /> <statusCode code="completed" /> <effectiveTime value="055532878405" /> < value unit="g/dL" xsi:type="PQ" value="33.1" /> <referenceRange> <observationRange> <text>32.0-36.0</text> </ observationRange> </referenceRange> </observation> </ component> <component> <observation moodCode="EVN" classCode="OBS"> <templateId root="16.840.1.163206.10.20.22.4.2" /> <id nullFlavor="NA" /> <code codeSystem="local" code="MCV" displayName="MCV " /> <statusCode code="completed" /> <effectiveTime value= "807295316406" /> <value unit="fL" xsi:type="PQ" value="82.1" /> <referenceRange> <observationRange> <text>82.0-99.0< /text> </observationRange> </referenceRange> </ observation> </component> <component> <observation moodCode= "EVN" classCode="OBS"> <templateId root="10.29.840.1.740571.10.20.22.4.2 " /> <id nullFlavor="NA" /> <code codeSystem="local" code="MPV " displayName="MPV" /> <statusCode code="completed" /> < effectiveTime value="540302531877" /> <value unit="fL" xsi:type="PQ" value="8.7" /> <interpretationCode codeSystem="local" code="*" /> <referenceRange> <observationRange> <text>9.4-12.3< /text> </observationRange> </referenceRange> </ observation> </component> <component> <observation moodCode= "EVN" classCode="OBS"> <templateId root="840.1.330033.10.20.22.4.2 " /> <id nullFlavor="NA" /> <code codeSystem="local" code="PLT " displayName="Platelet Count" /> <statusCode code="completed" /> <effectiveTime value="762824508971" /> <value unit="K/uL" xsi:type ="PQ" value="261" /> <referenceRange> <observationRange> <text>150-400</text> </observationRange> </ referenceRange> </observation> </component> <component> <observation moodCode="EVN" classCode="OBS"> <templateId root= "10.29.830.1.820196.10.20.22.4.2" /> <id nullFlavor="NA" /> < code codeSystem="local" code="RBC" displayName="RBC" /> <statusCode code="completed" /> <effectiveTime value="193423111855" /> < value unit="10*6/uL" xsi:type="PQ" value="4.42" /> <interpretationCode codeSystem="local" code="*" /> <referenceRange> < observationRange> <text>4.60-6.20</text> </ observationRange> </referenceRange> </observation> </ component> <component> <observation moodCode="EVN" classCode="OBS"> <templateId root="16.840.1.575146.10.20.22.4.2" /> <id nullFlavor="NA" /> <code codeSystem="local" code="RDW" displayName="RDW " /> <statusCode code="completed" /> <effectiveTime value= "628374729038" /> <value unit="%" xsi:type="PQ" value="14.2" /> <referenceRange> <observationRange> <text>11.5- 14.5</text> </observationRange> </referenceRange> </ observation> </component> <component> <observation moodCode= "EVN" classCode="OBS"> <templateId root="10.29.840.1.395861.10.20.22.4.2 " /> <id nullFlavor="NA" /> <code codeSystem="local" code= "WBCIR" displayName="WBC" /> <statusCode code="completed" /> < effectiveTime value="067453947566" /> <value unit="K/uL" xsi:type="PQ" value="16.0" /> <interpretationCode codeSystem="local" code="*" /> <referenceRange> <observationRange> <text>4.8-10.8 </text> </observationRange> </referenceRange> </ observation> </component> </organizer> </entry> <entry> <organizer moodCode="EVN" classCode="BATTERY"> <templateId root= "10.29.840.1.852688.10..22.4.1" /> <id nullFlavor="NA" /> <code codeSystem="local" code="RENAL" displayName="Renal Function Panel" /> < statusCode code="completed" /> <component> <observation moodCode= "EVN" classCode="OBS"> <templateId root="10.29.840.1.116097.10.22.4.2 " /> <id nullFlavor="NA" /> <code codeSystem="local" code="ALB " displayName="Albumin" /> <statusCode code="completed" /> < effectiveTime value="235160516600" /> <value unit="g/dL" xsi:type="PQ" value="2.1" /> <interpretationCode codeSystem="local" code="*" /> <referenceRange> <observationRange> <text>3.5-4.8</ text> </observationRange> </referenceRange> </ observation> </component> <component> <observation moodCode= "EVN" classCode="OBS"> <templateId root="10.29.840.1.537349.10.2022.4.2 " /> <id nullFlavor="NA" /> <code codeSystem="local" code= "AGAP" displayName="Anion Gap" /> <statusCode code="completed" /> <effectiveTime value="940286611881" /> <value unit="mEq/L" xsi: type="PQ" value="8" /> <referenceRange> <observationRange> <text>3-20</text> </observationRange> </ referenceRange> </observation> </component> <component> <observation moodCode="EVN" classCode="OBS"> <templateId root= "216.840.1.482381.07.02.22.4.2" /> <id nullFlavor="NA" /> < code codeSystem="local" code="BUN" displayName="BUN" /> <statusCode code="completed" /> <effectiveTime value="" /> < value unit="mg/dL" xsi:type="PQ" value="15" /> <referenceRange> <observationRange> <text>4-20</text> </ observationRange> </referenceRange> </observation> </ component> <component> <observation moodCode="EVN" classCode="OBS"> <templateId root="10.29.840.1.040633.07.02.22.4.2" /> <id nullFlavor="NA" /> <code codeSystem="local" code="CA" displayName= "Calcium" /> <statusCode code="completed" /> <effectiveTime value="" /> <value unit="mg/dL" xsi:type="PQ" value="8.4" / > <interpretationCode codeSystem="local" code="*" /> < referenceRange> <observationRange> <text>8.6-10.0</text > </observationRange> </referenceRange> </observation > </component> <component> <observation moodCode="EVN" classCode="OBS"> <templateId root="16.840.1.892974.07.02.22.4.2" /> <id nullFlavor="NA" /> <code codeSystem="local" code="CL" displayName="Chloride" /> <statusCode code="completed" /> < effectiveTime value="" /> <value unit="mEq/L" xsi:type="PQ " value="101" /> <referenceRange> <observationRange> <text>99-109</text> </observationRange> </ referenceRange> </observation> </component> <component> <observation moodCode="EVN" classCode="OBS"> <templateId root= "216.840.1.216594.10..22.4.2" /> <id nullFlavor="NA" /> < code codeSystem="local" code="CO2" displayName="CO2" /> <statusCode code="completed" /> <effectiveTime value="" /> < value unit="mEq/L" xsi:type="PQ" value="25" /> <referenceRange> <observationRange> <text>22-32</text> </ observationRange> </referenceRange> </observation> </ component> <component> <observation moodCode="EVN" classCode="OBS"> <templateId root="10.29.840.1.994838.10..4.2" /> <id nullFlavor="NA" /> <code codeSystem="local" code="CREAT" displayName= "Creatinine" /> <statusCode code="completed" /> < effectiveTime value="" /> <value unit="mg/dL" xsi:type="PQ " value="1.00" /> <referenceRange> <observationRange> <text>0.64-1.27</text> </observationRange> </ referenceRange> </observation> </component> <component> <observation moodCode="EVN" classCode="OBS"> <templateId root= "16.840.1.552125.10.20.22.4.2" /> <id nullFlavor="NA" /> < code codeSystem="local" code="GLU" displayName="Glucose" /> < statusCode code="completed" /> <effectiveTime value="956909685062" /> <value unit="mg/dL" xsi:type="PQ" value="109" /> < interpretationCode codeSystem="local" code="*" /> <referenceRange> <observationRange> <text>70-100</text> </ observationRange> </referenceRange> </observation> </ component> <component> <observation moodCode="EVN" classCode="OBS"> <templateId root="216.840.1.358216.10..22.4.2" /> <id nullFlavor="NA" /> <code codeSystem="local" code="PHOS" displayName= "Phosphorus" /> <statusCode code="completed" /> < effectiveTime value="590897228445" /> <value unit="mg/dL" xsi:type="PQ " value="2.5" /> <referenceRange> <observationRange> <text>2.4-4.7</text> </observationRange> </ referenceRange> </observation> </component> <component> <observation moodCode="EVN" classCode="OBS"> <templateId root= "16.840.1.917702.10.20.22.4.2" /> <id nullFlavor="NA" /> < code codeSystem="local" code="K" displayName="Potassium" /> < statusCode code="completed" /> <effectiveTime value="962224412882" /> <value unit="mEq/L" xsi:type="PQ" value="3.9" /> < referenceRange> <observationRange> <text>3.6-5.1</text> </observationRange> </referenceRange> </observation > </component> <component> <observation moodCode="EVN" classCode="OBS"> <templateId root="16.840.1.325990.10.20.22.4.2" /> <id nullFlavor="NA" /> <code codeSystem="local" code="NA" displayName="Sodium" /> <statusCode code="completed" /> < effectiveTime value="888795877591" /> <value unit="mEq/L" xsi:type="PQ " value="134" /> <interpretationCode codeSystem="local" code="*" /> <referenceRange> <observationRange> <text>136-144 </text> </observationRange> </referenceRange> </ observation> </component> </organizer> </entry> <entry> <organizer moodCode="EVN" classCode="BATTERY"> <templateId root= "216.840.1.283774.10..22.4.1" /> <id nullFlavor="NA" /> <code codeSystem="local" code="MG" displayName="Magnesium" /> <statusCode code= "completed" /> <component> <observation moodCode="EVN" classCode= "OBS"> <templateId root="16.840.1.308298.10.20.22.4.2" /> < id nullFlavor="NA" /> <code codeSystem="local" code="MG" displayName= "Magnesium" /> <statusCode code="completed" /> <effectiveTime value="115159341345" /> <value unit="mg/dL" xsi:type="PQ" value="2.1" / > <referenceRange> <observationRange> <text>1.8 -2.5</text> </observationRange> </referenceRange> </ observation> </component> </organizer> </entry> <entry> <organizer moodCode="EVN" classCode="BATTERY"> <templateId root= "840.1.123731.10..4.1" /> <id nullFlavor="NA" /> <code codeSystem="local" code="GFR" displayName="eGFR" /> <statusCode code= "completed" /> <component> <observation moodCode="EVN" classCode= "OBS"> <templateId root="840.1.650030.07.02.22.4.2" /> < id nullFlavor="NA" /> <code codeSystem="local" code="GFR" displayName= "eGFR" /> <statusCode code="completed" /> <effectiveTime value ="209503521086" /> <value unit="mL/min" xsi:type="PQ" value=">60" / > <referenceRange> <observationRange> <text>&gt ;60</text> </observationRange> </referenceRange> </ observation> </component> </organizer> </entry> <entry> <organizer moodCode="EVN" classCode="BATTERY"> <templateId root= "840.1.894475.07.02.22.4.1" /> <id nullFlavor="NA" /> <code codeSystem="local" code="LSPBA" displayName="Flow, Basic LSP" /> < statusCode code="completed" /> <component> <observation moodCode= "EVN" classCode="OBS"> <templateId root="840.1.949687.07.02.22.4.2 " /> <id nullFlavor="NA" /> <code codeSystem="local" code= "CD19" displayName="CD19 (B Cells)" /> <statusCode code="completed" /> <effectiveTime value="698400110187" /> <value unit="%" xsi:type="PQ" value="6.8" /> <interpretationCode codeSystem="local" code="*" /> <referenceRange> <observationRange> <text>7.0-23.0</text> </observationRange> </referenceRange > </observation> </component> <component> <observation moodCode="EVN" classCode="OBS"> <templateId root= "10.29.840.1.148596.10..22.4.2" /> <id nullFlavor="NA" /> < code codeSystem="local" code="CD19A" displayName="CD19 Absolute" /> < statusCode code="completed" /> <effectiveTime value="032034721620" /> <value unit="Cells/mm3" xsi:type="PQ" value="65" /> < interpretationCode codeSystem="local" code="*" /> <referenceRange> <observationRange> <text>100-600</text> </ observationRange> </referenceRange> </observation> </ component> <component> <observation moodCode="EVN" classCode="OBS"> <templateId root="10.29.840.1.564085.07.02.22.4.2" /> <id nullFlavor="NA" /> <code codeSystem="local" code="CD3A" displayName= "CD3 Absolute" /> <statusCode code="completed" /> < effectiveTime value="" /> <value unit="Cells/mm3" xsi:type= "PQ" value="756" /> <interpretationCode codeSystem="local" code="*" /> <referenceRange> <observationRange> <text>950- 2350</text> </observationRange> </referenceRange> </ observation> </component> <component> <observation moodCode= "EVN" classCode="OBS"> <templateId root="10.29.840.1.656914.10..22.4.2 " /> <id nullFlavor="NA" /> <code codeSystem="local" code="CD3 " displayName="CD3 Peripheral T Cells" /> <statusCode code="completed" /> <effectiveTime value="955598073953" /> <value unit="%" xsi:type="PQ" value="78.8" /> <referenceRange> < observationRange> <text>60.0-85.0</text> </ observationRange> </referenceRange> </observation> </ component> <component> <observation moodCode="EVN" classCode="OBS"> <templateId root="2.16.840.1.561028.10..22.4.2" /> <id nullFlavor="NA" /> <code codeSystem="local" code="CD4AN" displayName= "CD4 Absolute" /> <statusCode code="completed" /> < effectiveTime value="" /> <value unit="Cells/mm3" xsi:type= "PQ" value="627" /> <referenceRange> <observationRange> <text>540-1600</text> </observationRange> </ referenceRange> </observation> </component> <component> <observation moodCode="EVN" classCode="OBS"> <templateId root= "2.16.840.1.971251.10..22.4.2" /> <id nullFlavor="NA" /> < code codeSystem="local" code="CD4N" displayName="CD4 [place] T Cell" /> <statusCode code="completed" /> <effectiveTime value="500378938400" /> <value unit="%" xsi:type="PQ" value="65.3" /> < interpretationCode codeSystem="local" code="*" /> <referenceRange> <observationRange> <text>29.0-59.0</text> </ observationRange> </referenceRange> </observation> </ component> <component> <observation moodCode="EVN" classCode="OBS"> <templateId root="216.840.1.194079.10..4.2" /> <id nullFlavor="NA" /> <code codeSystem="local" code="CD4N8" displayName= "CD4:CD8 Ratio" /> <statusCode code="completed" /> < effectiveTime value="" /> <value unit="" xsi:type="PQ" value="4.98" /> <interpretationCode codeSystem="local" code="*" /> <referenceRange> <observationRange> <text>1.00- 2.90</text> </observationRange> </referenceRange> </ observation> </component> <component> <observation moodCode= "EVN" classCode="OBS"> <templateId root="10.29.840.1.678916.07.02.224.2 " /> <id nullFlavor="NA" /> <code codeSystem="local" code= "CD56" displayName="CD56" /> <statusCode code="completed" /> < effectiveTime value="" /> <value unit="%" xsi:type="PQ " value="12.1" /> <referenceRange> <observationRange> <text>6.0-29.0</text> </observationRange> </ referenceRange> </observation> </component> <component> <observation moodCode="EVN" classCode="OBS"> <templateId root= "216.840.1.883069.22.4.2" /> <id nullFlavor="NA" /> < code codeSystem="local" code="CD56A" displayName="CD56 Absolute" /> < statusCode code="completed" /> <effectiveTime value="" /> <value unit="Cells/mm3" xsi:type="PQ" value="116" /> < referenceRange> <observationRange> <text>100-600</text> </observationRange> </referenceRange> </observation > </component> <component> <observation moodCode="EVN" classCode="OBS"> <templateId root="216.840.1.090541.10..22.4.2" /> <id nullFlavor="NA" /> <code codeSystem="local" code="CD8A" displayName="CD8 Absolute" /> <statusCode code="completed" /> <effectiveTime value="[id number]" /> <value unit="Cells/mm3" xsi:type ="PQ" value="126" /> <interpretationCode codeSystem="local" code="*" / > <referenceRange> <observationRange> <text>300 -900</text> </observationRange> </referenceRange> </ observation> </component> <component> <observation moodCode= "EVN" classCode="OBS"> <templateId root="216.840.1.083402..22.4.2 " /> <id nullFlavor="NA" /> <code codeSystem="local" code="CD8 " displayName="CD8 Suppressor T Cells" /> <statusCode code="completed" /> <effectiveTime value="890588763312" /> <value unit="%" xsi:type="PQ" value="13.1" /> <interpretationCode codeSystem="local" code="*" /> <referenceRange> <observationRange> <text>18.0-36.0</text> </observationRange> </ referenceRange> </observation> </component> <component> <observation moodCode="EVN" classCode="OBS"> <templateId root= "216.840.1.043042.07.02.22.4.2" /> <id nullFlavor="NA" /> < code codeSystem="local" code="LYMAB" displayName="Lymphocytes, Absolute" /> <statusCode code="completed" /> <effectiveTime value= "698649324893" /> <value unit="mm3" xsi:type="PQ" value="960" /> <interpretationCode codeSystem="local" code="*" /> <referenceRange > <observationRange> <text>4147-7031</text> < /observationRange> </referenceRange> </observation> </ component> </organizer> </entry> <entry> <organizer moodCode="EVN" classCode="BATTERY"> <templateId root="216.840.1.631940.07.02.22.4.1" /> <id nullFlavor="NA" /> <code codeSystem="local" code="CBCND" displayName="CBC With Platelet No Differential" /> <statusCode code= "completed" /> <component> <observation moodCode="EVN" classCode= "OBS"> <templateId root="216.840.1.425780.10..4.2" /> < id nullFlavor="NA" /> <code codeSystem="local" code="HCT" displayName= "HCT" /> <statusCode code="completed" /> <effectiveTime value= "582493001195" /> <value unit="%" xsi:type="PQ" value="38.6" /> <interpretationCode codeSystem="local" code="*" /> < referenceRange> <observationRange> <text>42.0-52.0</text > </observationRange> </referenceRange> </observation > </component> <component> <observation moodCode="EVN" classCode="OBS"> <templateId root="216.840.1.963249.07.02.22.4.2" /> <id nullFlavor="NA" /> <code codeSystem="local" code="HGB" displayName="HGB" /> <statusCode code="completed" /> < effectiveTime value="895627148241" /> <value unit="g/dL" xsi:type="PQ" value="12.7" /> <interpretationCode codeSystem="local" code="*" /> <referenceRange> <observationRange> <text>14.0- 18.0</text> </observationRange> </referenceRange> </ observation> </component> <component> <observation moodCode= "EVN" classCode="OBS"> <templateId root="216.840.1.397319.10.4.2 " /> <id nullFlavor="NA" /> <code codeSystem="local" code="MCH " displayName="MCH" /> <statusCode code="completed" /> < effectiveTime value="" /> <value unit="pg" xsi:type="PQ" value="27.3" /> <referenceRange> <observationRange> <text>27.0-32.0</text> </observationRange> </ referenceRange> </observation> </component> <component> <observation moodCode="EVN" classCode="OBS"> <templateId root= "16.840.1.644987.07.02.22.4.2" /> <id nullFlavor="NA" /> < code codeSystem="local" code="MCHC" displayName="MCHC" /> <statusCode code="completed" /> <effectiveTime value="375556737070" /> < value unit="g/dL" xsi:type="PQ" value="32.9" /> <referenceRange> <observationRange> <text>32.0-36.0</text> </ observationRange> </referenceRange> </observation> </ component> <component> <observation moodCode="EVN" classCode="OBS"> <templateId root="216.840.1.926631.1022.4.2" /> <id nullFlavor="NA" /> <code codeSystem="local" code="MCV" displayName="MCV " /> <statusCode code="completed" /> <effectiveTime value= "" /> <value unit="fL" xsi:type="PQ" value="83.0" /> <referenceRange> <observationRange> <text>82.0-99.0< /text> </observationRange> </referenceRange> </ observation> </component> <component> <observation moodCode= "EVN" classCode="OBS"> <templateId root="16.840.1.333108.07.02.22.4.2 " /> <id nullFlavor="NA" /> <code codeSystem="local" code="MPV " displayName="MPV" /> <statusCode code="completed" /> < effectiveTime value="" /> <value unit="fL" xsi:type="PQ" value="9.0" /> <interpretationCode codeSystem="local" code="*" /> <referenceRange> <observationRange> <text>9.4-12.3< /text> </observationRange> </referenceRange> </ observation> </component> <component> <observation moodCode= "EVN" classCode="OBS"> <templateId root="16.840.1.569169.22.4.2 " /> <id nullFlavor="NA" /> <code codeSystem="local" code="PLT " displayName="Platelet Count" /> <statusCode code="completed" /> <effectiveTime value="263054071630" /> <value unit="K/uL" xsi:type ="PQ" value="253" /> <referenceRange> <observationRange> <text>150-400</text> </observationRange> </ referenceRange> </observation> </component> <component> <observation moodCode="EVN" classCode="OBS"> <templateId root= "216.840.1.543519.10.20.22.4.2" /> <id nullFlavor="NA" /> < code codeSystem="local" code="RBC" displayName="RBC" /> <statusCode code="completed" /> <effectiveTime value="641654166352" /> < value unit="10*6/uL" xsi:type="PQ" value="4.65" /> <referenceRange> <observationRange> <text>4.60-6.20</text> </ observationRange> </referenceRange> </observation> </ component> <component> <observation moodCode="EVN" classCode="OBS"> <templateId root="10.29.840.1.382197.10.22.4.2" /> <id nullFlavor="NA" /> <code codeSystem="local" code="RDW" displayName="RDW " /> <statusCode code="completed" /> <effectiveTime value= "116412971309" /> <value unit="%" xsi:type="PQ" value="14.5" /> <referenceRange> <observationRange> <text>11.5- 14.5</text> </observationRange> </referenceRange> </ observation> </component> <component> <observation moodCode= "EVN" classCode="OBS"> <templateId root="10.29.840.1.345700.10.20.22.4.2 " /> <id nullFlavor="NA" /> <code codeSystem="local" code= "WBCIR" displayName="WBC" /> <statusCode code="completed" /> < effectiveTime value="438734327261" /> <value unit="K/uL" xsi:type="PQ" value="13.0" /> <interpretationCode codeSystem="local" code="*" /> <referenceRange> <observationRange> <text>4.8-10.8 </text> </observationRange> </referenceRange> </ observation> </component> </organizer> </entry> <entry> <organizer moodCode="EVN" classCode="BATTERY"> <templateId root= "216.840.1.570696.10..22.4.1" /> <id nullFlavor="NA" /> <code codeSystem="local" code="BMP" displayName="Basic Metabolic Panel (BMP)" /> <statusCode code="completed" /> <component> <observation moodCode= "EVN" classCode="OBS"> <templateId root="216.840.1.590026.10..22.4.2 " /> <id nullFlavor="NA" /> <code codeSystem="local" code= "AGAP" displayName="Anion Gap" /> <statusCode code="completed" /> <effectiveTime value="941898545117" /> <value unit="mEq/L" xsi: type="PQ" value="8" /> <referenceRange> <observationRange> <text>3-20</text> </observationRange> </ referenceRange> </observation> </component> <component> <observation moodCode="EVN" classCode="OBS"> <templateId root= "216.840.1.228570.10..22.4.2" /> <id nullFlavor="NA" /> < code codeSystem="local" code="BUN" displayName="BUN" /> <statusCode code="completed" /> <effectiveTime value="" /> < value unit="mg/dL" xsi:type="PQ" value="15" /> <referenceRange> <observationRange> <text>4-20</text> </ observationRange> </referenceRange> </observation> </ component> <component> <observation moodCode="EVN" classCode="OBS"> <templateId root="16.840.1.016814.10.22.4.2" /> <id nullFlavor="NA" /> <code codeSystem="local" code="CA" displayName= "Calcium" /> <statusCode code="completed" /> <effectiveTime value="" /> <value unit="mg/dL" xsi:type="PQ" value="8.7" / > <referenceRange> <observationRange> <text>8.6 -10.0</text> </observationRange> </referenceRange> </ observation> </component> <component> <observation moodCode= "EVN" classCode="OBS"> <templateId root="10.29.840.1.453147.22.4.2 " /> <id nullFlavor="NA" /> <code codeSystem="local" code="CL " displayName="Chloride" /> <statusCode code="completed" /> < effectiveTime value="" /> <value unit="mEq/L" xsi:type="PQ " value="98" /> <interpretationCode codeSystem="local" code="*" /> <referenceRange> <observationRange> <text>99-109</ text> </observationRange> </referenceRange> </ observation> </component> <component> <observation moodCode= "EVN" classCode="OBS"> <templateId root="16.840.1.301369.2022.4.2 " /> <id nullFlavor="NA" /> <code codeSystem="local" code="CO2 " displayName="CO2" /> <statusCode code="completed" /> < effectiveTime value="" /> <value unit="mEq/L" xsi:type="PQ " value="27" /> <referenceRange> <observationRange> <text>22-32</text> </observationRange> </ referenceRange> </observation> </component> <component> <observation moodCode="EVN" classCode="OBS"> <templateId root= "2.16.840.1.500042.10...4.2" /> <id nullFlavor="NA" /> < code codeSystem="local" code="CREAT" displayName="Creatinine" /> < statusCode code="completed" /> <effectiveTime value="" /> <value unit="mg/dL" xsi:type="PQ" value="0.90" /> < referenceRange> <observationRange> <text>0.64-1.27</text > </observationRange> </referenceRange> </observation > </component> <component> <observation moodCode="EVN" classCode="OBS"> <templateId root="216.840.1.888418.10...4.2" /> <id nullFlavor="NA" /> <code codeSystem="local" code="GLU" displayName="Glucose" /> <statusCode code="completed" /> < effectiveTime value="" /> <value unit="mg/dL" xsi:type="PQ " value="115" /> <interpretationCode codeSystem="local" code="*" /> <referenceRange> <observationRange> <text>70-100< /text> </observationRange> </referenceRange> </ observation> </component> <component> <observation moodCode= "EVN" classCode="OBS"> <templateId root="16.840.1.560194.10..22.4.2 " /> <id nullFlavor="NA" /> <code codeSystem="local" code="K" displayName="Potassium" /> <statusCode code="completed" /> < effectiveTime value="182014167234" /> <value unit="mEq/L" xsi:type="PQ " value="4.0" /> <referenceRange> <observationRange> <text>3.6-5.1</text> </observationRange> </ referenceRange> </observation> </component> <component> <observation moodCode="EVN" classCode="OBS"> <templateId root= "10.29.840.1.101234.07.02.22.4.2" /> <id nullFlavor="NA" /> < code codeSystem="local" code="NA" displayName="Sodium" /> <statusCode code="completed" /> <effectiveTime value="443403989889" /> < value unit="mEq/L" xsi:type="PQ" value="133" /> <interpretationCode codeSystem="local" code="*" /> <referenceRange> < observationRange> <text>136-144</text> </ observationRange> </referenceRange> </observation> </ component> </organizer> </entry> <entry> <organizer moodCode="EVN" classCode="BATTERY"> <templateId root="16.840.1.027185.10.20.22.4.1" /> <id nullFlavor="NA" /> <code codeSystem="local" code="MG" displayName= "Magnesium" /> <statusCode code="completed" /> <component> < observation moodCode="EVN" classCode="OBS"> <templateId root= "10.29.840.1.211467.22.4.2" /> <id nullFlavor="NA" /> < code codeSystem="local" code="MG" displayName="Magnesium" /> < statusCode code="completed" /> <effectiveTime value="349371686115" /> <value unit="mg/dL" xsi:type="PQ" value="2.2" /> < referenceRange> <observationRange> <text>1.8-2.5</text> </observationRange> </referenceRange> </observation > </component> </organizer> </entry> <entry> <organizer moodCode= "EVN" classCode="BATTERY"> <templateId root="10.29.840.1.674353.22.4.1 " /> <id nullFlavor="NA" /> <code codeSystem="local" code="PHOS" displayName="Phosphorus" /> <statusCode code="completed" /> <component > <observation moodCode="EVN" classCode="OBS"> <templateId root= "10.29.840.1.192797.07.02.22.4.2" /> <id nullFlavor="NA" /> < code codeSystem="local" code="PHOS" displayName="Phosphorus" /> < statusCode code="completed" /> <effectiveTime value="750186166193" /> <value unit="mg/dL" xsi:type="PQ" value="3.0" /> < referenceRange> <observationRange> <text>2.4-4.7</text> </observationRange> </referenceRange> </observation > </component> </organizer> </entry> <entry> <organizer moodCode= "EVN" classCode="BATTERY"> <templateId root="10.29.840.1.580853.22.4.1 " /> <id nullFlavor="NA" /> <code codeSystem="local" code="GFR" displayName="eGFR" /> <statusCode code="completed" /> <component> <observation moodCode="EVN" classCode="OBS"> <templateId root= "16.840.1.760087.10.22.4.2" /> <id nullFlavor="NA" /> < code codeSystem="local" code="GFR" displayName="eGFR" /> <statusCode code="completed" /> <effectiveTime value="363895246627" /> < value unit="mL/min" xsi:type="PQ" value=">60" /> <referenceRange> <observationRange> <text>>60</text> </ observationRange> </referenceRange> </observation> </ component> </organizer> </entry> <entry> <organizer moodCode="EVN" classCode="BATTERY"> <templateId root="16.840.1.481985.10.22.4.1" /> <id nullFlavor="NA" /> <code codeSystem="local" code="CBCND" displayName="CBC With Platelet No Differential" /> <statusCode code= "completed" /> <component> <observation moodCode="EVN" classCode= "OBS"> <templateId root="16.840.1.885117.10.2022.4.2" /> < id nullFlavor="NA" /> <code codeSystem="local" code="HCT" displayName= "HCT" /> <statusCode code="completed" /> <effectiveTime value= "553052628329" /> <value unit="%" xsi:type="PQ" value="37.8" /> <interpretationCode codeSystem="local" code="*" /> < referenceRange> <observationRange> <text>42.0-52.0</text > </observationRange> </referenceRange> </observation > </component> <component> <observation moodCode="EVN" classCode="OBS"> <templateId root="2.16.840.1.442736.10..4.2" /> <id nullFlavor="NA" /> <code codeSystem="local" code="HGB" displayName="HGB" /> <statusCode code="completed" /> < effectiveTime value="" /> <value unit="g/dL" xsi:type="PQ" value="12.5" /> <interpretationCode codeSystem="local" code="*" /> <referenceRange> <observationRange> <text>14.0- 18.0</text> </observationRange> </referenceRange> </ observation> </component> <component> <observation moodCode= "EVN" classCode="OBS"> <templateId root="216.840.1.920433.10.4.2 " /> <id nullFlavor="NA" /> <code codeSystem="local" code="MCH " displayName="MCH" /> <statusCode code="completed" /> < effectiveTime value="" /> <value unit="pg" xsi:type="PQ" value="27.4" /> <referenceRange> <observationRange> <text>27.0-32.0</text> </observationRange> </ referenceRange> </observation> </component> <component> <observation moodCode="EVN" classCode="OBS"> <templateId root= "2.16.840.1.952833.10..4.2" /> <id nullFlavor="NA" /> < code codeSystem="local" code="MCHC" displayName="MCHC" /> <statusCode code="completed" /> <effectiveTime value="" /> < value unit="g/dL" xsi:type="PQ" value="33.1" /> <referenceRange> <observationRange> <text>32.0-36.0</text> </ observationRange> </referenceRange> </observation> </ component> <component> <observation moodCode="EVN" classCode="OBS"> <templateId root="216.840.1.347274.10.2022.4.2" /> <id nullFlavor="NA" /> <code codeSystem="local" code="MCV" displayName="MCV " /> <statusCode code="completed" /> <effectiveTime value= "" /> <value unit="fL" xsi:type="PQ" value="82.7" /> <referenceRange> <observationRange> <text>82.0-99.0< /text> </observationRange> </referenceRange> </ observation> </component> <component> <observation moodCode= "EVN" classCode="OBS"> <templateId root="10.29.840.1.357187.10.22.4.2 " /> <id nullFlavor="NA" /> <code codeSystem="local" code="MPV " displayName="MPV" /> <statusCode code="completed" /> < effectiveTime value="" /> <value unit="fL" xsi:type="PQ" value="9.5" /> <referenceRange> <observationRange> <text>9.4-12.3</text> </observationRange> </ referenceRange> </observation> </component> <component> <observation moodCode="EVN" classCode="OBS"> <templateId root= "216.840.1.371280.10.20.22.4.2" /> <id nullFlavor="NA" /> < code codeSystem="local" code="PLT" displayName="Platelet Count" /> < statusCode code="completed" /> <effectiveTime value="" /> <value unit="K/uL" xsi:type="PQ" value="235" /> < referenceRange> <observationRange> <text>150-400</text> </observationRange> </referenceRange> </observation > </component> <component> <observation moodCode="EVN" classCode="OBS"> <templateId root="216.840.1.354122.10.20.22.4.2" /> <id nullFlavor="NA" /> <code codeSystem="local" code="RBC" displayName="RBC" /> <statusCode code="completed" /> < effectiveTime value="" /> <value unit="10*6/uL" xsi:type= "PQ" value="4.57" /> <interpretationCode codeSystem="local" code="*" / > <referenceRange> <observationRange> <text> 4.60-6.20</text> </observationRange> </referenceRange> </observation> </component> <component> <observation moodCode="EVN" classCode="OBS"> <templateId root= "16.840.1.631431.10.20.22.4.2" /> <id nullFlavor="NA" /> < code codeSystem="local" code="RDW" displayName="RDW" /> <statusCode code="completed" /> <effectiveTime value="" /> < value unit="%" xsi:type="PQ" value="14.2" /> <referenceRange> <observationRange> <text>11.5-14.5</text> </ observationRange> </referenceRange> </observation> </ component> <component> <observation moodCode="EVN" classCode="OBS"> <templateId root="16.840.1.286517.10.20.22.4.2" /> <id nullFlavor="NA" /> <code codeSystem="local" code="WBCIR" displayName= "WBC" /> <statusCode code="completed" /> <effectiveTime value= "828770739165" /> <value unit="K/uL" xsi:type="PQ" value="10.5" /> <referenceRange> <observationRange> <text>4.8-10.8 </text> </observationRange> </referenceRange> </ observation> </component> </organizer> </entry> <entry> <organizer moodCode="EVN" classCode="BATTERY"> <templateId root= "216.840.1.928276.10.20.22.4.1" /> <id nullFlavor="NA" /> <code codeSystem="local" code="RENAL" displayName="Renal Function Panel" /> < statusCode code="completed" /> <component> <observation moodCode= "EVN" classCode="OBS"> <templateId root="16.840.1.694538.10.20.22.4.2 " /> <id nullFlavor="NA" /> <code codeSystem="local" code="ALB " displayName="Albumin" /> <statusCode code="completed" /> < effectiveTime value="408958301960" /> <value unit="g/dL" xsi:type="PQ" value="2.2" /> <interpretationCode codeSystem="local" code="*" /> <referenceRange> <observationRange> <text>3.5-4.8</ text> </observationRange> </referenceRange> </ observation> </component> <component> <observation moodCode= "EVN" classCode="OBS"> <templateId root="2.16.840.1.827114.10.20.22.4.2 " /> <id nullFlavor="NA" /> <code codeSystem="local" code= "AGAP" displayName="Anion Gap" /> <statusCode code="completed" /> <effectiveTime value="360870798742" /> <value unit="mEq/L" xsi: type="PQ" value="7" /> <referenceRange> <observationRange> <text>3-20</text> </observationRange> </ referenceRange> </observation> </component> <component> <observation moodCode="EVN" classCode="OBS"> <templateId root= "216.840.1.500365..22.4.2" /> <id nullFlavor="NA" /> < code codeSystem="local" code="BUN" displayName="BUN" /> <statusCode code="completed" /> <effectiveTime value="" /> < value unit="mg/dL" xsi:type="PQ" value="16" /> <referenceRange> <observationRange> <text>4-20</text> </ observationRange> </referenceRange> </observation> </ component> <component> <observation moodCode="EVN" classCode="OBS"> <templateId root="10.29.840.1.746905.102022.4.2" /> <id nullFlavor="NA" /> <code codeSystem="local" code="CA" displayName= "Calcium" /> <statusCode code="completed" /> <effectiveTime value="522205037441" /> <value unit="mg/dL" xsi:type="PQ" value="8.6" / > <referenceRange> <observationRange> <text>8.6 -10.0</text> </observationRange> </referenceRange> </ observation> </component> <component> <observation moodCode= "EVN" classCode="OBS"> <templateId root="216.840.1.578333.10.22.4.2 " /> <id nullFlavor="NA" /> <code codeSystem="local" code="CL " displayName="Chloride" /> <statusCode code="completed" /> < effectiveTime value="" /> <value unit="mEq/L" xsi:type="PQ " value="98" /> <interpretationCode codeSystem="local" code="*" /> <referenceRange> <observationRange> <text>99-109</ text> </observationRange> </referenceRange> </ observation> </component> <component> <observation moodCode= "EVN" classCode="OBS"> <templateId root="16.840.1.885483.07.02.22.4.2 " /> <id nullFlavor="NA" /> <code codeSystem="local" code="CO2 " displayName="CO2" /> <statusCode code="completed" /> < effectiveTime value="705913848080" /> <value unit="mEq/L" xsi:type="PQ " value="28" /> <referenceRange> <observationRange> <text>22-32</text> </observationRange> </ referenceRange> </observation> </component> <component> <observation moodCode="EVN" classCode="OBS"> <templateId root= "216.840.1.065534.10.20.22.4.2" /> <id nullFlavor="NA" /> < code codeSystem="local" code="CREAT" displayName="Creatinine" /> < statusCode code="completed" /> <effectiveTime value="" /> <value unit="mg/dL" xsi:type="PQ" value="0.88" /> < referenceRange> <observationRange> <text>0.64-1.27</text > </observationRange> </referenceRange> </observation > </component> <component> <observation moodCode="EVN" classCode="OBS"> <templateId root="216.840.1.912531.10.2022.4.2" /> <id nullFlavor="NA" /> <code codeSystem="local" code="GLU" displayName="Glucose" /> <statusCode code="completed" /> < effectiveTime value="" /> <value unit="mg/dL" xsi:type="PQ " value="96" /> <referenceRange> <observationRange> <text>70-100</text> </observationRange> </ referenceRange> </observation> </component> <component> <observation moodCode="EVN" classCode="OBS"> <templateId root= "10.29.840.1.898597.1022.4.2" /> <id nullFlavor="NA" /> < code codeSystem="local" code="PHOS" displayName="Phosphorus" /> < statusCode code="completed" /> <effectiveTime value="" /> <value unit="mg/dL" xsi:type="PQ" value="3.2" /> < referenceRange> <observationRange> <text>2.4-4.7</text> </observationRange> </referenceRange> </observation > </component> <component> <observation moodCode="EVN" classCode="OBS"> <templateId root="10.29.840.1.606468.102022.4.2" /> <id nullFlavor="NA" /> <code codeSystem="local" code="K" displayName="Potassium" /> <statusCode code="completed" /> < effectiveTime value="" /> <value unit="mEq/L" xsi:type="PQ " value="4.1" /> <referenceRange> <observationRange> <text>3.6-5.1</text> </observationRange> </ referenceRange> </observation> </component> <component> <observation moodCode="EVN" classCode="OBS"> <templateId root= "840.1.729280.22.4.2" /> <id nullFlavor="NA" /> < code codeSystem="local" code="NA" displayName="Sodium" /> <statusCode code="completed" /> <effectiveTime value="" /> < value unit="mEq/L" xsi:type="PQ" value="133" /> <interpretationCode codeSystem="local" code="*" /> <referenceRange> < observationRange> <text>136-144</text> </ observationRange> </referenceRange> </observation> </ component> </organizer> </entry> <entry> <organizer moodCode="EVN" classCode="BATTERY"> <templateId root="840.1.095354.22.4.1" /> <id nullFlavor="NA" /> <code codeSystem="local" code="MG" displayName= "Magnesium" /> <statusCode code="completed" /> <component> < observation moodCode="EVN" classCode="OBS"> <templateId root= "840.1.881933.22.4.2" /> <id nullFlavor="NA" /> < code codeSystem="local" code="MG" displayName="Magnesium" /> < statusCode code="completed" /> <effectiveTime value="" /> <value unit="mg/dL" xsi:type="PQ" value="2.2" /> < referenceRange> <observationRange> <text>1.8-2.5</text> </observationRange> </referenceRange> </observation > </component> </organizer> </entry> <entry> <organizer moodCode= "EVN" classCode="BATTERY"> <templateId root="840.1.039853.1022.4.1 " /> <id nullFlavor="NA" /> <code codeSystem="local" code="GFR" displayName="eGFR" /> <statusCode code="completed" /> <component> <observation moodCode="EVN" classCode="OBS"> <templateId root= "840.1.558255.07.02.22.4.2" /> <id nullFlavor="NA" /> < code codeSystem="local" code="GFR" displayName="eGFR" /> <statusCode code="completed" /> <effectiveTime value="[id number]" /> < value unit="mL/min" xsi:type="PQ" value=">60" /> <referenceRange> <observationRange> <text>>60</text> </ observationRange> </referenceRange> </observation> </ component> </organizer> </entry> <entry> <organizer moodCode="EVN" classCode="BATTERY"> <templateId root="840.1.177574.22.4.1" /> <id nullFlavor="NA" /> <code codeSystem="local" code="CBCND" displayName="CBC With Platelet No Differential" /> <statusCode code= "completed" /> <component> <observation moodCode="EVN" classCode= "OBS"> <templateId root="840.1.706073.22.4.2" /> < id nullFlavor="NA" /> <code codeSystem="local" code="HCT" displayName= "HCT" /> <statusCode code="completed" /> <effectiveTime value= "" /> <value unit="%" xsi:type="PQ" value="37.9" /> <interpretationCode codeSystem="local" code="*" /> < referenceRange> <observationRange> <text>42.0-52.0</text > </observationRange> </referenceRange> </observation > </component> <component> <observation moodCode="EVN" classCode="OBS"> <templateId root="2.16.840.1.915927.10..4.2" /> <id nullFlavor="NA" /> <code codeSystem="local" code="HGB" displayName="HGB" /> <statusCode code="completed" /> < effectiveTime value="" /> <value unit="g/dL" xsi:type="PQ" value="12.4" /> <interpretationCode codeSystem="local" code="*" /> <referenceRange> <observationRange> <text>14.0- 18.0</text> </observationRange> </referenceRange> </ observation> </component> <component> <observation moodCode= "EVN" classCode="OBS"> <templateId root="2.16.840.1.478671.10.2022.4.2 " /> <id nullFlavor="NA" /> <code codeSystem="local" code="MCH " displayName="MCH" /> <statusCode code="completed" /> < effectiveTime value="" /> <value unit="pg" xsi:type="PQ" value="27.0" /> <referenceRange> <observationRange> <text>27.0-32.0</text> </observationRange> </ referenceRange> </observation> </component> <component> <observation moodCode="EVN" classCode="OBS"> <templateId root= "216.840.1.468650.10.4.2" /> <id nullFlavor="NA" /> < code codeSystem="local" code="MCHC" displayName="MCHC" /> <statusCode code="completed" /> <effectiveTime value="" /> < value unit="g/dL" xsi:type="PQ" value="32.7" /> <referenceRange> <observationRange> <text>32.0-36.0</text> </ observationRange> </referenceRange> </observation> </ component> <component> <observation moodCode="EVN" classCode="OBS"> <templateId root="10.29.840.1.222732.10.4.2" /> <id nullFlavor="NA" /> <code codeSystem="local" code="MCV" displayName="MCV " /> <statusCode code="completed" /> <effectiveTime value= "" /> <value unit="fL" xsi:type="PQ" value="82.4" /> <referenceRange> <observationRange> <text>82.0-99.0< /text> </observationRange> </referenceRange> </ observation> </component> <component> <observation moodCode= "EVN" classCode="OBS"> <templateId root="216.840.1.140695.10.22.4.2 " /> <id nullFlavor="NA" /> <code codeSystem="local" code="MPV " displayName="MPV" /> <statusCode code="completed" /> < effectiveTime value="" /> <value unit="fL" xsi:type="PQ" value="8.8" /> <interpretationCode codeSystem="local" code="*" /> <referenceRange> <observationRange> <text>9.4-12.3< /text> </observationRange> </referenceRange> </ observation> </component> <component> <observation moodCode= "EVN" classCode="OBS"> <templateId root="10.29.840.1.387850.10.22.4.2 " /> <id nullFlavor="NA" /> <code codeSystem="local" code="PLT " displayName="Platelet Count" /> <statusCode code="completed" /> <effectiveTime value="" /> <value unit="K/uL" xsi:type ="PQ" value="213" /> <referenceRange> <observationRange> <text>150-400</text> </observationRange> </ referenceRange> </observation> </component> <component> <observation moodCode="EVN" classCode="OBS"> <templateId root= "840.1.493835.22.4.2" /> <id nullFlavor="NA" /> < code codeSystem="local" code="RBC" displayName="RBC" /> <statusCode code="completed" /> <effectiveTime value="161047138018" /> < value unit="10*6/uL" xsi:type="PQ" value="4.60" /> <referenceRange> <observationRange> <text>4.60-6.20</text> </ observationRange> </referenceRange> </observation> </ component> <component> <observation moodCode="EVN" classCode="OBS"> <templateId root="10.29.840.1.040162.10.2022.4.2" /> <id nullFlavor="NA" /> <code codeSystem="local" code="RDW" displayName="RDW " /> <statusCode code="completed" /> <effectiveTime value= "543880390584" /> <value unit="%" xsi:type="PQ" value="13.9" /> <referenceRange> <observationRange> <text>11.5- 14.5</text> </observationRange> </referenceRange> </ observation> </component> <component> <observation moodCode= "EVN" classCode="OBS"> <templateId root="10.29.840.1.514970.10.2022.4.2 " /> <id nullFlavor="NA" /> <code codeSystem="local" code= "WBCIR" displayName="WBC" /> <statusCode code="completed" /> < effectiveTime value="999844039068" /> <value unit="K/uL" xsi:type="PQ" value="9.8" /> <referenceRange> <observationRange> <text>4.8-10.8</text> </observationRange> </ referenceRange> </observation> </component> </organizer> </entry > <entry> <organizer moodCode="EVN" classCode="BATTERY"> <templateId root="840.1.173469.22.4.1" /> <id nullFlavor="NA" /> <code codeSystem="local" code="RENAL" displayName="Renal Function Panel" /> < statusCode code="completed" /> <component> <observation moodCode= "EVN" classCode="OBS"> <templateId root="10.29.840.1.686971.102022.4.2 " /> <id nullFlavor="NA" /> <code codeSystem="local" code="ALB " displayName="Albumin" /> <statusCode code="completed" /> < effectiveTime value="" /> <value unit="g/dL" xsi:type="PQ" value="2.3" /> <interpretationCode codeSystem="local" code="*" /> <referenceRange> <observationRange> <text>3.5-4.8</ text> </observationRange> </referenceRange> </ observation> </component> <component> <observation moodCode= "EVN" classCode="OBS"> <templateId root="10.29.840.1.706091.1022.4.2 " /> <id nullFlavor="NA" /> <code codeSystem="local" code= "AGAP" displayName="Anion Gap" /> <statusCode code="completed" /> <effectiveTime value="" /> <value unit="mEq/L" xsi: type="PQ" value="9" /> <referenceRange> <observationRange> <text>3-20</text> </observationRange> </ referenceRange> </observation> </component> <component> <observation moodCode="EVN" classCode="OBS"> <templateId root= "840.1.155409.22.4.2" /> <id nullFlavor="NA" /> < code codeSystem="local" code="BUN" displayName="BUN" /> <statusCode code="completed" /> <effectiveTime value="" /> < value unit="mg/dL" xsi:type="PQ" value="15" /> <referenceRange> <observationRange> <text>4-20</text> </ observationRange> </referenceRange> </observation> </ component> <component> <observation moodCode="EVN" classCode="OBS"> <templateId root="10.29.840.1.429138.10.2022.4.2" /> <id nullFlavor="NA" /> <code codeSystem="local" code="CA" displayName= "Calcium" /> <statusCode code="completed" /> <effectiveTime value="" /> <value unit="mg/dL" xsi:type="PQ" value="8.8" / > <referenceRange> <observationRange> <text>8.6 -10.0</text> </observationRange> </referenceRange> </ observation> </component> <component> <observation moodCode= "EVN" classCode="OBS"> <templateId root="216.840.1.427407.10.20.22.4.2 " /> <id nullFlavor="NA" /> <code codeSystem="local" code="CL " displayName="Chloride" /> <statusCode code="completed" /> < effectiveTime value="" /> <value unit="mEq/L" xsi:type="PQ " value="98" /> <interpretationCode codeSystem="local" code="*" /> <referenceRange> <observationRange> <text>99-109</ text> </observationRange> </referenceRange> </ observation> </component> <component> <observation moodCode= "EVN" classCode="OBS"> <templateId root="16.840.1.519148.10.20.22.4.2 " /> <id nullFlavor="NA" /> <code codeSystem="local" code="CO2 " displayName="CO2" /> <statusCode code="completed" /> < effectiveTime value="" /> <value unit="mEq/L" xsi:type="PQ " value="26" /> <referenceRange> <observationRange> <text>22-32</text> </observationRange> </ referenceRange> </observation> </component> <component> <observation moodCode="EVN" classCode="OBS"> <templateId root= "16.840.1.199115.10..22.4.2" /> <id nullFlavor="NA" /> < code codeSystem="local" code="CREAT" displayName="Creatinine" /> < statusCode code="completed" /> <effectiveTime value="" /> <value unit="mg/dL" xsi:type="PQ" value="0.96" /> < referenceRange> <observationRange> <text>0.64-1.27</text > </observationRange> </referenceRange> </observation > </component> <component> <observation moodCode="EVN" classCode="OBS"> <templateId root="10.29.840.1.545524.22.4.2" /> <id nullFlavor="NA" /> <code codeSystem="local" code="GLU" displayName="Glucose" /> <statusCode code="completed" /> < effectiveTime value="" /> <value unit="mg/dL" xsi:type="PQ " value="95" /> <referenceRange> <observationRange> <text>70-100</text> </observationRange> </ referenceRange> </observation> </component> <component> <observation moodCode="EVN" classCode="OBS"> <templateId root= "10.29.840.1.193611.102022.4.2" /> <id nullFlavor="NA" /> < code codeSystem="local" code="PHOS" displayName="Phosphorus" /> < statusCode code="completed" /> <effectiveTime value="625989434367" /> <value unit="mg/dL" xsi:type="PQ" value="3.5" /> < referenceRange> <observationRange> <text>2.4-4.7</text> </observationRange> </referenceRange> </observation > </component> <component> <observation moodCode="EVN" classCode="OBS"> <templateId root="216.840.1.257167.10.22.4.2" /> <id nullFlavor="NA" /> <code codeSystem="local" code="K" displayName="Potassium" /> <statusCode code="completed" /> < effectiveTime value="531568066953" /> <value unit="mEq/L" xsi:type="PQ " value="4.3" /> <referenceRange> <observationRange> <text>3.6-5.1</text> </observationRange> </ referenceRange> </observation> </component> <component> <observation moodCode="EVN" classCode="OBS"> <templateId root= "2.840.1.248133.07.02.22.4.2" /> <id nullFlavor="NA" /> < code codeSystem="local" code="NA" displayName="Sodium" /> <statusCode code="completed" /> <effectiveTime value="530696112279" /> < value unit="mEq/L" xsi:type="PQ" value="133" /> <interpretationCode codeSystem="local" code="*" /> <referenceRange> < observationRange> <text>136-144</text> </ observationRange> </referenceRange> </observation> </ component> </organizer> </entry> <entry> <organizer moodCode="EVN" classCode="BATTERY"> <templateId root="216.840.1.688834.10.22.4.1" /> <id nullFlavor="NA" /> <code codeSystem="local" code="MG" displayName= "Magnesium" /> <statusCode code="completed" /> <component> < observation moodCode="EVN" classCode="OBS"> <templateId root= "16.840.1.289870.10..22.4.2" /> <id nullFlavor="NA" /> < code codeSystem="local" code="MG" displayName="Magnesium" /> < statusCode code="completed" /> <effectiveTime value="172588243648" /> <value unit="mg/dL" xsi:type="PQ" value="2.3" /> < referenceRange> <observationRange> <text>1.8-2.5</text> </observationRange> </referenceRange> </observation > </component> </organizer> </entry> <entry> <organizer moodCode= "EVN" classCode="BATTERY"> <templateId root="216.840.1.414120.10..22.4.1 " /> <id nullFlavor="NA" /> <code codeSystem="local" code="GFR" displayName="eGFR" /> <statusCode code="completed" /> <component> <observation moodCode="EVN" classCode="OBS"> <templateId root= "216.840.1.375444.10..22.4.2" /> <id nullFlavor="NA" /> < code codeSystem="local" code="GFR" displayName="eGFR" /> <statusCode code="completed" /> <effectiveTime value="892031194924" /> < value unit="mL/min" xsi:type="PQ" value=">60" /> <referenceRange> <observationRange> <text>>60</text> </ observationRange> </referenceRange> </observation> </ component> </organizer> </entry> <entry> <organizer moodCode="EVN" classCode="BATTERY"> <templateId root="16.840.1.642017...4.1" /> <id nullFlavor="NA" /> <code codeSystem="local" code="CBCND" displayName="CBC With Platelet No Differential" /> <statusCode code= "completed" /> <component> <observation moodCode="EVN" classCode= "OBS"> <templateId root="216.840.1.595783.07.02.22.4.2" /> < id nullFlavor="NA" /> <code codeSystem="local" code="HCT" displayName= "HCT" /> <statusCode code="completed" /> <effectiveTime value= "200266084733" /> <value unit="%" xsi:type="PQ" value="36.9" /> <interpretationCode codeSystem="local" code="*" /> < referenceRange> <observationRange> <text>42.0-52.0</text > </observationRange> </referenceRange> </observation > </component> <component> <observation moodCode="EVN" classCode="OBS"> <templateId root="216.840.1.625232.07.02.22.4.2" /> <id nullFlavor="NA" /> <code codeSystem="local" code="HGB" displayName="HGB" /> <statusCode code="completed" /> < effectiveTime value="429895954963" /> <value unit="g/dL" xsi:type="PQ" value="12.0" /> <interpretationCode codeSystem="local" code="*" /> <referenceRange> <observationRange> <text>14.0- 18.0</text> </observationRange> </referenceRange> </ observation> </component> <component> <observation moodCode= "EVN" classCode="OBS"> <templateId root="216.840.1.300870.07.02.22.4.2 " /> <id nullFlavor="NA" /> <code codeSystem="local" code="MCH " displayName="MCH" /> <statusCode code="completed" /> < effectiveTime value="" /> <value unit="pg" xsi:type="PQ" value="27.1" /> <referenceRange> <observationRange> <text>27.0-32.0</text> </observationRange> </ referenceRange> </observation> </component> <component> <observation moodCode="EVN" classCode="OBS"> <templateId root= "2.16.840.1.517782.10...4.2" /> <id nullFlavor="NA" /> < code codeSystem="local" code="MCHC" displayName="MCHC" /> <statusCode code="completed" /> <effectiveTime value="" /> < value unit="g/dL" xsi:type="PQ" value="32.5" /> <referenceRange> <observationRange> <text>32.0-36.0</text> </ observationRange> </referenceRange> </observation> </ component> <component> <observation moodCode="EVN" classCode="OBS"> <templateId root="2.16.840.1.723526.10...4.2" /> <id nullFlavor="NA" /> <code codeSystem="local" code="MCV" displayName="MCV " /> <statusCode code="completed" /> <effectiveTime value= "152590742861" /> <value unit="fL" xsi:type="PQ" value="83.5" /> <referenceRange> <observationRange> <text>82.0-99.0< /text> </observationRange> </referenceRange> </ observation> </component> <component> <observation moodCode= "EVN" classCode="OBS"> <templateId root="16.840.1.901190.10.20.22.4.2 " /> <id nullFlavor="NA" /> <code codeSystem="local" code="MPV " displayName="MPV" /> <statusCode code="completed" /> < effectiveTime value="233835528807" /> <value unit="fL" xsi:type="PQ" value="9.2" /> <interpretationCode codeSystem="local" code="*" /> <referenceRange> <observationRange> <text>9.4-12.3< /text> </observationRange> </referenceRange> </ observation> </component> <component> <observation moodCode= "EVN" classCode="OBS"> <templateId root="10.29.840.1.278819.22.4.2 " /> <id nullFlavor="NA" /> <code codeSystem="local" code="PLT " displayName="Platelet Count" /> <statusCode code="completed" /> <effectiveTime value="433722946592" /> <value unit="K/uL" xsi:type ="PQ" value="221" /> <referenceRange> <observationRange> <text>150-400</text> </observationRange> </ referenceRange> </observation> </component> <component> <observation moodCode="EVN" classCode="OBS"> <templateId root= "10.29.840.1.360060.10.20.22.4.2" /> <id nullFlavor="NA" /> < code codeSystem="local" code="RBC" displayName="RBC" /> <statusCode code="completed" /> <effectiveTime value="910565422647" /> < value unit="10*6/uL" xsi:type="PQ" value="4.42" /> <interpretationCode codeSystem="local" code="*" /> <referenceRange> < observationRange> <text>4.60-6.20</text> </ observationRange> </referenceRange> </observation> </ component> <component> <observation moodCode="EVN" classCode="OBS"> <templateId root="216.840.1.569363.10..22.4.2" /> <id nullFlavor="NA" /> <code codeSystem="local" code="RDW" displayName="RDW " /> <statusCode code="completed" /> <effectiveTime value= "635818200996" /> <value unit="%" xsi:type="PQ" value="14.0" /> <referenceRange> <observationRange> <text>11.5- 14.5</text> </observationRange> </referenceRange> </ observation> </component> <component> <observation moodCode= "EVN" classCode="OBS"> <templateId root="16.840.1.992325.10...4.2 " /> <id nullFlavor="NA" /> <code codeSystem="local" code= "WBCIR" displayName="WBC" /> <statusCode code="completed" /> < effectiveTime value="843921880809" /> <value unit="K/uL" xsi:type="PQ" value="9.9" /> <referenceRange> <observationRange> <text>4.8-10.8</text> </observationRange> </ referenceRange> </observation> </component> </organizer> </entry > <entry> <organizer moodCode="EVN" classCode="BATTERY"> <templateId root="16.840.1.537670.10.20.22.4.1" /> <id nullFlavor="NA" /> <code codeSystem="local" code="BMP" displayName="Basic Metabolic Panel (BMP)" /> <statusCode code="completed" /> <component> <observation moodCode= "EVN" classCode="OBS"> <templateId root="10.29.840.1.658343.10.4.2 " /> <id nullFlavor="NA" /> <code codeSystem="local" code= "AGAP" displayName="Anion Gap" /> <statusCode code="completed" /> <effectiveTime value="" /> <value unit="mEq/L" xsi: type="PQ" value="7" /> <referenceRange> <observationRange> <text>3-20</text> </observationRange> </ referenceRange> </observation> </component> <component> <observation moodCode="EVN" classCode="OBS"> <templateId root= "840.1.170248.07.02.22.4.2" /> <id nullFlavor="NA" /> < code codeSystem="local" code="BUN" displayName="BUN" /> <statusCode code="completed" /> <effectiveTime value="" /> < value unit="mg/dL" xsi:type="PQ" value="22" /> <interpretationCode codeSystem="local" code="*" /> <referenceRange> < observationRange> <text>4-20</text> </observationRange> </referenceRange> </observation> </component> < component> <observation moodCode="EVN" classCode="OBS"> < templateId root="840.1.792127.22.4.2" /> <id nullFlavor="NA " /> <code codeSystem="local" code="CA" displayName="Calcium" /> <statusCode code="completed" /> <effectiveTime value="903438864228 " /> <value unit="mg/dL" xsi:type="PQ" value="9.1" /> < referenceRange> <observationRange> <text>8.6-10.0</text > </observationRange> </referenceRange> </observation > </component> <component> <observation moodCode="EVN" classCode="OBS"> <templateId root="10.29.840.1.443725.1022.4.2" /> <id nullFlavor="NA" /> <code codeSystem="local" code="CL" displayName="Chloride" /> <statusCode code="completed" /> < effectiveTime value="856937805758" /> <value unit="mEq/L" xsi:type="PQ " value="98" /> <interpretationCode codeSystem="local" code="*" /> <referenceRange> <observationRange> <text>99-109</ text> </observationRange> </referenceRange> </ observation> </component> <component> <observation moodCode= "EVN" classCode="OBS"> <templateId root="10.29.840.1.731688.07.02.22.4.2 " /> <id nullFlavor="NA" /> <code codeSystem="local" code="CO2 " displayName="CO2" /> <statusCode code="completed" /> < effectiveTime value="077121390654" /> <value unit="mEq/L" xsi:type="PQ " value="28" /> <referenceRange> <observationRange> <text>22-32</text> </observationRange> </ referenceRange> </observation> </component> <component> <observation moodCode="EVN" classCode="OBS"> <templateId root= "10.29.840.1.103173.22.4.2" /> <id nullFlavor="NA" /> < code codeSystem="local" code="CREAT" displayName="Creatinine" /> < statusCode code="completed" /> <effectiveTime value="073105349993" /> <value unit="mg/dL" xsi:type="PQ" value="1.09" /> < referenceRange> <observationRange> <text>0.64-1.27</text > </observationRange> </referenceRange> </observation > </component> <component> <observation moodCode="EVN" classCode="OBS"> <templateId root="216.840.1.825560.10..22.4.2" /> <id nullFlavor="NA" /> <code codeSystem="local" code="GLU" displayName="Glucose" /> <statusCode code="completed" /> < effectiveTime value="038048257878" /> <value unit="mg/dL" xsi:type="PQ " value="62" /> <interpretationCode codeSystem="local" code="*" /> <referenceRange> <observationRange> <text>70-100</ text> </observationRange> </referenceRange> </ observation> </component> <component> <observation moodCode= "EVN" classCode="OBS"> <templateId root="216.840.1.866846.10..22.4.2 " /> <id nullFlavor="NA" /> <code codeSystem="local" code="K" displayName="Potassium" /> <statusCode code="completed" /> < effectiveTime value="187697616952" /> <value unit="mEq/L" xsi:type="PQ " value="4.3" /> <referenceRange> <observationRange> <text>3.6-5.1</text> </observationRange> </ referenceRange> </observation> </component> <component> <observation moodCode="EVN" classCode="OBS"> <templateId root= "216.840.1.965606.10.20.22.4.2" /> <id nullFlavor="NA" /> < code codeSystem="local" code="NA" displayName="Sodium" /> <statusCode code="completed" /> <effectiveTime value="046161950138" /> < value unit="mEq/L" xsi:type="PQ" value="133" /> <interpretationCode codeSystem="local" code="*" /> <referenceRange> < observationRange> <text>136-144</text> </ observationRange> </referenceRange> </observation> </ component> </organizer> </entry> <entry> <organizer moodCode="EVN" classCode="BATTERY"> <templateId root="216.840.1.638515.10.20.22.4.1" /> <id nullFlavor="NA" /> <code codeSystem="local" code="GFR" displayName ="eGFR" /> <statusCode code="completed" /> <component> < observation moodCode="EVN" classCode="OBS"> <templateId root= "2.16.840.1.955690.10.20.22.4.2" /> <id nullFlavor="NA" /> < code codeSystem="local" code="GFR" displayName="eGFR" /> <statusCode code="completed" /> <effectiveTime value="862650932390" /> < value unit="mL/min" xsi:type="PQ" value=">60" /> <referenceRange> <observationRange> <text>>60</text> </ observationRange> </referenceRange> </observation> </ component> </organizer> </entry> <entry> <organizer moodCode="EVN" classCode="BATTERY"> <templateId root="16.840.1.985597.10..22.4.1" /> <id nullFlavor="NA" /> <code codeSystem="local" code="CBCWD" displayName="CBC With Platelet and Differential" /> <statusCode code= "completed" /> <component> <observation moodCode="EVN" classCode= "OBS"> <templateId root="10.29.840.1.232254.07.02.22.4.2" /> < id nullFlavor="NA" /> <code codeSystem="local" code="ABASR" displayName ="Absolute Basophils" /> <statusCode code="completed" /> < effectiveTime value="937796986024" /> <value unit="10*3/uL" xsi:type= "PQ" value="0.03" /> <referenceRange> <observationRange> <text>0.00-0.20</text> </observationRange> </ referenceRange> </observation> </component> <component> <observation moodCode="EVN" classCode="OBS"> <templateId root= "10.29.840.1.987856.07.02.22.4.2" /> <id nullFlavor="NA" /> < code codeSystem="local" code="AEOSR" displayName="Absolute Eosinophils" /> <statusCode code="completed" /> <effectiveTime value="917019059931 " /> <value unit="10*3/uL" xsi:type="PQ" value="0.04" /> < referenceRange> <observationRange> <text>0.00-0.50</text > </observationRange> </referenceRange> </observation > </component> <component> <observation moodCode="EVN" classCode="OBS"> <templateId root="16.840.1.008220.07.02.22.4.2" /> <id nullFlavor="NA" /> <code codeSystem="local" code="ALYMR" displayName="Absolute Lymphocytes" /> <statusCode code="completed" /> <effectiveTime value="604556958810" /> <value unit="10*3/uL" xsi:type="PQ" value="1.15" /> <referenceRange> < observationRange> <text>0.80-3.30</text> </ observationRange> </referenceRange> </observation> </ component> <component> <observation moodCode="EVN" classCode="OBS"> <templateId root="2.16.840.1.883273....4.2" /> <id nullFlavor="NA" /> <code codeSystem="local" code="AMONR" displayName= "Absolute Monocytes" /> <statusCode code="completed" /> < effectiveTime value="036896179725" /> <value unit="10*3/uL" xsi:type= "PQ" value="0.60" /> <referenceRange> <observationRange> <text>0.30-1.00</text> </observationRange> </ referenceRange> </observation> </component> <component> <observation moodCode="EVN" classCode="OBS"> <templateId root= "2.16.840.1.738700....4.2" /> <id nullFlavor="NA" /> < code codeSystem="local" code="ASEGR" displayName="Absolute Neutrophils" /> <statusCode code="completed" /> <effectiveTime value="466258316529 " /> <value unit="10*3/uL" xsi:type="PQ" value="4.22" /> < referenceRange> <observationRange> <text>1.90-7.00</text > </observationRange> </referenceRange> </observation > </component> <component> <observation moodCode="EVN" classCode="OBS"> <templateId root="216.840.1.485295.10.2022.4.2" /> <id nullFlavor="NA" /> <code codeSystem="local" code="BASOR" displayName="Basophils" /> <statusCode code="completed" /> < effectiveTime value="816039147469" /> <value unit="%" xsi:type="PQ " value="1" /> <referenceRange> <observationRange> <text>0-2</text> </observationRange> </referenceRange> </observation> </component> <component> <observation moodCode="EVN" classCode="OBS"> <templateId root= "216.840.1.394500.10.22.4.2" /> <id nullFlavor="NA" /> < code codeSystem="local" code="EOSR" displayName="Eosinophils" /> < statusCode code="completed" /> <effectiveTime value="714699684025" /> <value unit="%" xsi:type="PQ" value="1" /> <referenceRange > <observationRange> <text>0-4</text> </ observationRange> </referenceRange> </observation> </ component> <component> <observation moodCode="EVN" classCode="OBS"> <templateId root="16.840.1.019860.10.2022.4.2" /> <id nullFlavor="NA" /> <code codeSystem="local" code="HCT" displayName="HCT " /> <statusCode code="completed" /> <effectiveTime value= "870821779837" /> <value unit="%" xsi:type="PQ" value="42.5" /> <referenceRange> <observationRange> <text>42.0- 52.0</text> </observationRange> </referenceRange> </ observation> </component> <component> <observation moodCode= "EVN" classCode="OBS"> <templateId root="216.840.1.016035.10..4.2 " /> <id nullFlavor="NA" /> <code codeSystem="local" code="HGB " displayName="HGB" /> <statusCode code="completed" /> < effectiveTime value="644008186524" /> <value unit="g/dL" xsi:type="PQ" value="14.4" /> <referenceRange> <observationRange> <text>14.0-18.0</text> </observationRange> </ referenceRange> </observation> </component> <component> <observation moodCode="EVN" classCode="OBS"> <templateId root= "10.29.840.1.722376.07.02.22.4.2" /> <id nullFlavor="NA" /> < code codeSystem="local" code="IMGA" displayName="Immature Granulocytes" /> <statusCode code="completed" /> <effectiveTime value="875283725549 " /> <value unit="%" xsi:type="PQ" value="0.3" /> < referenceRange> <observationRange> <text>0.0-1.0</text> </observationRange> </referenceRange> </observation > </component> <component> <observation moodCode="EVN" classCode="OBS"> <templateId root="10.29.840.1.757023...4.2" /> <id nullFlavor="NA" /> <code codeSystem="local" code="LYMPR" displayName="Lymphocytes" /> <statusCode code="completed" /> < effectiveTime value="283535915354" /> <value unit="%" xsi:type="PQ " value="19" /> <interpretationCode codeSystem="local" code="*" /> <referenceRange> <observationRange> <text>20-46</ text> </observationRange> </referenceRange> </ observation> </component> <component> <observation moodCode= "EVN" classCode="OBS"> <templateId root="16.840.1.850306.07.02.22.4.2 " /> <id nullFlavor="NA" /> <code codeSystem="local" code="MCH " displayName="MCH" /> <statusCode code="completed" /> < effectiveTime value="579310661548" /> <value unit="pg" xsi:type="PQ" value="27.9" /> <referenceRange> <observationRange> <text>27.0-32.0</text> </observationRange> </ referenceRange> </observation> </component> <component> <observation moodCode="EVN" classCode="OBS"> <templateId root= "10.29.840.1.573766.07.02.22.4.2" /> <id nullFlavor="NA" /> < code codeSystem="local" code="MCHC" displayName="MCHC" /> <statusCode code="completed" /> <effectiveTime value="419877636778" /> < value unit="g/dL" xsi:type="PQ" value="33.9" /> <referenceRange> <observationRange> <text>32.0-36.0</text> </ observationRange> </referenceRange> </observation> </ component> <component> <observation moodCode="EVN" classCode="OBS"> <templateId root="216.840.1.266772.22.4.2" /> <id nullFlavor="NA" /> <code codeSystem="local" code="MCV" displayName="MCV " /> <statusCode code="completed" /> <effectiveTime value= "926364117280" /> <value unit="fL" xsi:type="PQ" value="82.4" /> <referenceRange> <observationRange> <text>82.0-99.0< /text> </observationRange> </referenceRange> </ observation> </component> <component> <observation moodCode= "EVN" classCode="OBS"> <templateId root="216.840.1.666922.10..22.4.2 " /> <id nullFlavor="NA" /> <code codeSystem="local" code= "MONOR" displayName="Monocytes" /> <statusCode code="completed" /> <effectiveTime value="" /> <value unit="%" xsi: type="PQ" value="10" /> <referenceRange> <observationRange> <text>4-11</text> </observationRange> </ referenceRange> </observation> </component> <component> <observation moodCode="EVN" classCode="OBS"> <templateId root= "16.840.1.112234.10..22.4.2" /> <id nullFlavor="NA" /> < code codeSystem="local" code="MPV" displayName="MPV" /> <statusCode code="completed" /> <effectiveTime value="930872915921" /> < value unit="fL" xsi:type="PQ" value="9.4" /> <referenceRange> <observationRange> <text>9.4-12.3</text> </ observationRange> </referenceRange> </observation> </ component> <component> <observation moodCode="EVN" classCode="OBS"> <templateId root="16.840.1.437585.10..22.4.2" /> <id nullFlavor="NA" /> <code codeSystem="local" code="SEGR" displayName= "Neutrophils" /> <statusCode code="completed" /> < effectiveTime value="799752276445" /> <value unit="%" xsi:type="PQ " value="70" /> <referenceRange> <observationRange> <text>51-75</text> </observationRange> </ referenceRange> </observation> </component> <component> <observation moodCode="EVN" classCode="OBS"> <templateId root= "10.29.840.1.472924.10..4.2" /> <id nullFlavor="NA" /> < code codeSystem="local" code="NRBCA" displayName="Nucleated RBC Automated" /> <statusCode code="completed" /> <effectiveTime value= "742859618878" /> <value unit="/100WBC" xsi:type="PQ" value="0.0" /> <referenceRange> <observationRange> <text /> </observationRange> </referenceRange> </observation> </component> <component> <observation moodCode="EVN" classCode= "OBS"> <templateId root="10.29.840.1.908134.10.22.4.2" /> < id nullFlavor="NA" /> <code codeSystem="local" code="PLT" displayName= "Platelet Count" /> <statusCode code="completed" /> < effectiveTime value="340182934417" /> <value unit="K/uL" xsi:type="PQ" value="179" /> <referenceRange> <observationRange> <text>150-400</text> </observationRange> </ referenceRange> </observation> </component> <component> <observation moodCode="EVN" classCode="OBS"> <templateId root= "216.840.1.988415.10..22.4.2" /> <id nullFlavor="NA" /> < code codeSystem="local" code="RBC" displayName="RBC" /> <statusCode code="completed" /> <effectiveTime value="935523036673" /> < value unit="10*6/uL" xsi:type="PQ" value="5.16" /> <referenceRange> <observationRange> <text>4.60-6.20</text> </ observationRange> </referenceRange> </observation> </ component> <component> <observation moodCode="EVN" classCode="OBS"> <templateId root="216.840.1.519155.07.02.22.4.2" /> <id nullFlavor="NA" /> <code codeSystem="local" code="RDW" displayName="RDW " /> <statusCode code="completed" /> <effectiveTime value= "011784144555" /> <value unit="%" xsi:type="PQ" value="15.5" /> <interpretationCode codeSystem="local" code="*" /> < referenceRange> <observationRange> <text>11.5-14.5</text > </observationRange> </referenceRange> </observation > </component> <component> <observation moodCode="EVN" classCode="OBS"> <templateId root="216.840.1.614564.22.4.2" /> <id nullFlavor="NA" /> <code codeSystem="local" code="WBCIR" displayName="WBC" /> <statusCode code="completed" /> < effectiveTime value="473027716548" /> <value unit="K/uL" xsi:type="PQ" value="6.1" /> <referenceRange> <observationRange> <text>4.8-10.8</text> </observationRange> </ referenceRange> </observation> </component> </organizer> </entry > <entry> <organizer moodCode="EVN" classCode="BATTERY"> <templateId root="16.840.1.136743.10.22.4.1" /> <id nullFlavor="NA" /> <code codeSystem="local" code="CMP" displayName="Comprehensive Metabolic Panel (CMP)" /> <statusCode code="completed" /> <component> <observation moodCode="EVN" classCode="OBS"> <templateId root= "216.840.1.405049.10..22.4.2" /> <id nullFlavor="NA" /> < code codeSystem="local" code="ALB" displayName="Albumin" /> < statusCode code="completed" /> <effectiveTime value="596721025303" /> <value unit="g/dL" xsi:type="PQ" value="3.8" /> < referenceRange> <observationRange> <text>3.5-4.8</text> </observationRange> </referenceRange> </observation > </component> <component> <observation moodCode="EVN" classCode="OBS"> <templateId root="16.840.1.532912.10..22.4.2" /> <id nullFlavor="NA" /> <code codeSystem="local" code="ALP" displayName="Alkaline Phosphatase" /> <statusCode code="completed" /> <effectiveTime value="195953618586" /> <value unit="U/L" xsi: type="PQ" value="75" /> <referenceRange> <observationRange> <text>26-104</text> </observationRange> </ referenceRange> </observation> </component> <component> <observation moodCode="EVN" classCode="OBS"> <templateId root= "216.840.1.755996.10..22.4.2" /> <id nullFlavor="NA" /> < code codeSystem="local" code="ALT" displayName="ALT (SGPT)" /> < statusCode code="completed" /> <effectiveTime value="165440333744" /> <value unit="U/L" xsi:type="PQ" value="17" /> <referenceRange > <observationRange> <text>17-63</text> </ observationRange> </referenceRange> </observation> </ component> <component> <observation moodCode="EVN" classCode="OBS"> <templateId root="10.29.840.1.061208.10..4.2" /> <id nullFlavor="NA" /> <code codeSystem="local" code="AGAP" displayName= "Anion Gap" /> <statusCode code="completed" /> <effectiveTime value="687200268059" /> <value unit="mEq/L" xsi:type="PQ" value="11" / > <referenceRange> <observationRange> <text>3- 20</text> </observationRange> </referenceRange> </ observation> </component> <component> <observation moodCode= "EVN" classCode="OBS"> <templateId root="10.29.840.1.938817.10..4.2 " /> <id nullFlavor="NA" /> <code codeSystem="local" code="AST " displayName="AST (SGOT)" /> <statusCode code="completed" /> <effectiveTime value="461862668672" /> <value unit="U/L" xsi:type="PQ" value="22" /> <referenceRange> <observationRange> <text>15-41</text> </observationRange> </referenceRange > </observation> </component> <component> <observation moodCode="EVN" classCode="OBS"> <templateId root= "216.840.1.920147.10...4.2" /> <id nullFlavor="NA" /> < code codeSystem="local" code="BILIT" displayName="Bilirubin Total" /> < statusCode code="completed" /> <effectiveTime value="560322159695" /> <value unit="mg/dL" xsi:type="PQ" value="0.8" /> < referenceRange> <observationRange> <text>0.2-1.2</text> </observationRange> </referenceRange> </observation > </component> <component> <observation moodCode="EVN" classCode="OBS"> <templateId root="216.840.1.403687...4.2" /> <id nullFlavor="NA" /> <code codeSystem="local" code="BUN" displayName="BUN" /> <statusCode code="completed" /> < effectiveTime value="171291051950" /> <value unit="mg/dL" xsi:type="PQ " value="13" /> <referenceRange> <observationRange> <text>4-20</text> </observationRange> </referenceRange > </observation> </component> <component> <observation moodCode="EVN" classCode="OBS"> <templateId root= "216.840.1.231474.10...4.2" /> <id nullFlavor="NA" /> < code codeSystem="local" code="CA" displayName="Calcium" /> <statusCode code="completed" /> <effectiveTime value="214975434733" /> < value unit="mg/dL" xsi:type="PQ" value="9.5" /> <referenceRange> <observationRange> <text>8.6-10.0</text> </ observationRange> </referenceRange> </observation> </ component> <component> <observation moodCode="EVN" classCode="OBS"> <templateId root="10.29.840.1.008048.10.20.22.4.2" /> <id nullFlavor="NA" /> <code codeSystem="local" code="CL" displayName= "Chloride" /> <statusCode code="completed" /> <effectiveTime value="596031268928" /> <value unit="mEq/L" xsi:type="PQ" value="104" / > <referenceRange> <observationRange> <text>99- 109</text> </observationRange> </referenceRange> </ observation> </component> <component> <observation moodCode= "EVN" classCode="OBS"> <templateId root="10.29.840.1.863082.10..22.4.2 " /> <id nullFlavor="NA" /> <code codeSystem="local" code="CO2 " displayName="CO2" /> <statusCode code="completed" /> < effectiveTime value="131515849447" /> <value unit="mEq/L" xsi:type="PQ " value="23" /> <referenceRange> <observationRange> <text>22-32</text> </observationRange> </ referenceRange> </observation> </component> <component> <observation moodCode="EVN" classCode="OBS"> <templateId root= "10.29.840.1.688135.07.02.22.4.2" /> <id nullFlavor="NA" /> < code codeSystem="local" code="CREAT" displayName="Creatinine" /> < statusCode code="completed" /> <effectiveTime value="257682913201" /> <value unit="mg/dL" xsi:type="PQ" value="1.11" /> < referenceRange> <observationRange> <text>0.64-1.27</text > </observationRange> </referenceRange> </observation > </component> <component> <observation moodCode="EVN" classCode="OBS"> <templateId root="2.16.840.1.943817.07.02.22.4.2" /> <id nullFlavor="NA" /> <code codeSystem="local" code="GLOB" displayName="Globulin" /> <statusCode code="completed" /> < effectiveTime value="691775653713" /> <value unit="g/dL" xsi:type="PQ" value="2.9" /> <referenceRange> <observationRange> <text>1.9-4.3</text> </observationRange> </ referenceRange> </observation> </component> <component> <observation moodCode="EVN" classCode="OBS"> <templateId root= "2.16.840.1.993260.07.02.22.4.2" /> <id nullFlavor="NA" /> < code codeSystem="local" code="GLU" displayName="Glucose" /> < statusCode code="completed" /> <effectiveTime value="725436050436" /> <value unit="mg/dL" xsi:type="PQ" value="98" /> < referenceRange> <observationRange> <text>70-100</text> </observationRange> </referenceRange> </observation> </component> <component> <observation moodCode="EVN" classCode ="OBS"> <templateId root="16.840.1.083343.10..22.4.2" /> < id nullFlavor="NA" /> <code codeSystem="local" code="K" displayName= "Potassium" /> <statusCode code="completed" /> <effectiveTime value="834531623589" /> <value unit="mEq/L" xsi:type="PQ" value="3.5" / > <interpretationCode codeSystem="local" code="*" /> < referenceRange> <observationRange> <text>3.6-5.1</text> </observationRange> </referenceRange> </observation > </component> <component> <observation moodCode="EVN" classCode="OBS"> <templateId root="10.29.840.1.532092.07.02.22.4.2" /> <id nullFlavor="NA" /> <code codeSystem="local" code="TP" displayName="Protein" /> <statusCode code="completed" /> < effectiveTime value="" /> <value unit="g/dL" xsi:type="PQ" value="6.7" /> <referenceRange> <observationRange> <text>6.1-7.9</text> </observationRange> </ referenceRange> </observation> </component> <component> <observation moodCode="EVN" classCode="OBS"> <templateId root= "840.1.069272.10.20.22.4.2" /> <id nullFlavor="NA" /> < code codeSystem="local" code="NA" displayName="Sodium" /> <statusCode code="completed" /> <effectiveTime value="056289372873" /> < value unit="mEq/L" xsi:type="PQ" value="138" /> <referenceRange> <observationRange> <text>136-144</text> </ observationRange> </referenceRange> </observation> </ component> </organizer> </entry> <entry> <organizer moodCode="EVN" classCode="BATTERY"> <templateId root="840.1.388672.07.02.22.4.1" /> <id nullFlavor="NA" /> <code codeSystem="local" code="GFR" displayName ="eGFR" /> <statusCode code="completed" /> <component> < observation moodCode="EVN" classCode="OBS"> <templateId root= "840.1.643009.07.02.22.4.2" /> <id nullFlavor="NA" /> < code codeSystem="local" code="GFR" displayName="eGFR" /> <statusCode code="completed" /> <effectiveTime value="847347611977" /> < value unit="mL/min" xsi:type="PQ" value=">60" /> <referenceRange> <observationRange> <text>>60</text> </ observationRange> </referenceRange> </observation> </ component> </organizer> </entry> <entry> <organizer moodCode="EVN" classCode="BATTERY"> <templateId root="840.1.807161.07.02.22.4.1" /> <id nullFlavor="NA" /> <code codeSystem="local" code="TROP" displayName="Troponin" /> <statusCode code="completed" /> <component> <observation moodCode="EVN" classCode="OBS"> <templateId root= "840.1.621334.07.02.22.4.2" /> <id nullFlavor="NA" /> < code codeSystem="local" code="TROP" displayName="Troponin" /> < statusCode code="completed" /> <effectiveTime value="610745788913" /> <value unit="ng/mL" xsi:type="PQ" value="<0.05" /> < referenceRange> <observationRange> <text><0.06</text > </observationRange> </referenceRange> </observation > </component> </organizer> </entry> <entry> <organizer moodCode= "EVN" classCode="BATTERY"> <templateId root="216.840.1.115597.10..22.4.1 " /> <id nullFlavor="NA" /> <code codeSystem="local" code="UA" displayName="Urinalysis with reflex microscopic" /> <statusCode code= "completed" /> <component> <observation moodCode="EVN" classCode= "OBS"> <templateId root="216.840.1.905726.10..22.4.2" /> < id nullFlavor="NA" /> <code codeSystem="local" code="UAPP" displayName= "Appearance" /> <statusCode code="completed" /> < effectiveTime value="458555622572" /> <value unit="NA" xsi:type="PQ" value="Cloudy" /> <interpretationCode codeSystem="local" code="*" /> <referenceRange> <observationRange> <text /> </observationRange> </referenceRange> </observation> </component> <component> <observation moodCode="EVN" classCode= "OBS"> <templateId root="216.840.1.661368.10..22.4.2" /> < id nullFlavor="NA" /> <code codeSystem="local" code="UBIL" displayName= "Bilirubin" /> <statusCode code="completed" /> <effectiveTime value="" /> <value unit="NA" xsi:type="PQ" value="Negative " /> <referenceRange> <observationRange> <text> Negative</text> </observationRange> </referenceRange> </observation> </component> <component> <observation moodCode ="EVN" classCode="OBS"> <templateId root= "10.29.840.1.391179.07.02.22.4.2" /> <id nullFlavor="NA" /> < code codeSystem="local" code="UBLD" displayName="Blood" /> <statusCode code="completed" /> <effectiveTime value="" /> < value unit="NA" xsi:type="PQ" value="Negative" /> <referenceRange> <observationRange> <text>Negative</text> </ observationRange> </referenceRange> </observation> </ component> <component> <observation moodCode="EVN" classCode="OBS"> <templateId root="10.29.840.1.854877.07.02.22.4.2" /> <id nullFlavor="NA" /> <code codeSystem="local" code="UCOLR" displayName= "Color" /> <statusCode code="completed" /> <effectiveTime value="" /> <value unit="NA" xsi:type="PQ" value="Yellow" / > <referenceRange> <observationRange> <text /> </observationRange> </referenceRange> </observation > </component> <component> <observation moodCode="EVN" classCode="OBS"> <templateId root="10.29.840.1.036822.07.02.22.4.2" /> <id nullFlavor="NA" /> <code codeSystem="local" code="UGLU" displayName="Glucose, Urine" /> <statusCode code="completed" /> <effectiveTime value="797290117319" /> <value unit="" xsi:type="PQ" value="Negative" /> <referenceRange> <observationRange> <text>Negative</text> </observationRange> </ referenceRange> </observation> </component> <component> <observation moodCode="EVN" classCode="OBS"> <templateId root= "10.29.840.1.738374.07.02.22.4.2" /> <id nullFlavor="NA" /> < code codeSystem="local" code="UKET" displayName="Ketones" /> < statusCode code="completed" /> <effectiveTime value="959970088730" /> <value unit="" xsi:type="PQ" value="Pos 1+" /> < interpretationCode codeSystem="local" code="*" /> <referenceRange> <observationRange> <text>Negative</text> </ observationRange> </referenceRange> </observation> </ component> <component> <observation moodCode="EVN" classCode="OBS"> <templateId root="10.29.840.1.865108.10...4.2" /> <id nullFlavor="NA" /> <code codeSystem="local" code="ULEU" displayName= "Leukocyte Esterase" /> <statusCode code="completed" /> < effectiveTime value="670016064557" /> <value unit="NA" xsi:type="PQ" value="Trace" /> <interpretationCode codeSystem="local" code="*" /> <referenceRange> <observationRange> <text> Negative</text> </observationRange> </referenceRange> </observation> </component> <component> <observation moodCode ="EVN" classCode="OBS"> <templateId root= "840.1.492039.1022.4.2" /> <id nullFlavor="NA" /> < code codeSystem="local" code="UNIT" displayName="Nitrites" /> < statusCode code="completed" /> <effectiveTime value="" /> <value unit="NA" xsi:type="PQ" value="Negative" /> < referenceRange> <observationRange> <text>Negative</text > </observationRange> </referenceRange> </observation > </component> <component> <observation moodCode="EVN" classCode="OBS"> <templateId root="216.840.1.750286.07.02.22.4.2" /> <id nullFlavor="NA" /> <code codeSystem="local" code="UPH" displayName="pH" /> <statusCode code="completed" /> < effectiveTime value="" /> <value unit="NA" xsi:type="PQ" value="5.0" /> <referenceRange> <observationRange> <text>5.0-8.0</text> </observationRange> </ referenceRange> </observation> </component> <component> <observation moodCode="EVN" classCode="OBS"> <templateId root= "16.840.1.705143.07.02.22.4.2" /> <id nullFlavor="NA" /> < code codeSystem="local" code="UPRO" displayName="Protein" /> < statusCode code="completed" /> <effectiveTime value="" /> <value unit="NA" xsi:type="PQ" value="Pos 1+" /> < interpretationCode codeSystem="local" code="*" /> <referenceRange> <observationRange> <text>Negative</text> </ observationRange> </referenceRange> </observation> </ component> <component> <observation moodCode="EVN" classCode="OBS"> <templateId root="216.840.1.786470.10..4.2" /> <id nullFlavor="NA" /> <code codeSystem="local" code="USPG" displayName= "Specific [place]" /> <statusCode code="completed" /> < effectiveTime value="890615893916" /> <value unit="NA" xsi:type="PQ" value="1.025" /> <referenceRange> <observationRange> <text>1.003-1.030</text> </observationRange> </ referenceRange> </observation> </component> <component> <observation moodCode="EVN" classCode="OBS"> <templateId root= "216.840.1.976940.07.02.22.4.2" /> <id nullFlavor="NA" /> < code codeSystem="local" code="UTYP" displayName="UA Collection type" /> <statusCode code="completed" /> <effectiveTime value="207555275618" / > <value unit="NA" xsi:type="PQ" value="Clean Catch" /> < referenceRange> <observationRange> <text /> < /observationRange> </referenceRange> </observation> </ component> <component> <observation moodCode="EVN" classCode="OBS"> <templateId root="16.840.1.980863.10..4.2" /> <id nullFlavor="NA" /> <code codeSystem="local" code="UURO" displayName= "Urobilinogen" /> <statusCode code="completed" /> < effectiveTime value="215838421430" /> <value unit="mg/dL" xsi:type="PQ " value="4.0" /> <referenceRange> <observationRange> <text><1.0</text> </observationRange> </ referenceRange> </observation> </component> </organizer> </entry > <entry> <organizer moodCode="EVN" classCode="BATTERY"> <templateId root="16.840.1.025060.07.02.22.4.1" /> <id nullFlavor="NA" /> <code codeSystem="local" code="UMIC" displayName="Urine Microscopic" /> < statusCode code="completed" /> <component> <observation moodCode= "EVN" classCode="OBS"> <templateId root="16.840.1.897014.07.02.22.4.2 " /> <id nullFlavor="NA" /> <code codeSystem="local" code= "UBAC" displayName="Bacteria" /> <statusCode code="completed" /> <effectiveTime value="" /> <value unit="NA" xsi:type= "PQ" value="Occasional" /> <interpretationCode codeSystem="local" code= "*" /> <referenceRange> <observationRange> < text /> </observationRange> </referenceRange> </ observation> </component> <component> <observation moodCode= "EVN" classCode="OBS"> <templateId root="16.840.1.389718.07.02.22.4.2 " /> <id nullFlavor="NA" /> <code codeSystem="local" code= "UCRY1" displayName="Crystals" /> <statusCode code="completed" /> <effectiveTime value="" /> <value unit="NA" xsi:type= "PQ" value="Ca Ox" /> <referenceRange> <observationRange> <text /> </observationRange> </referenceRange> </observation> </component> <component> <observation moodCode="EVN" classCode="OBS"> <templateId root= "10.29.840.1.800760.10..4.2" /> <id nullFlavor="NA" /> < code codeSystem="local" code="UEPI" displayName="Epithelial Cells" /> < statusCode code="completed" /> <effectiveTime value="" /> <value unit="/HPF" xsi:type="PQ" value="2" /> <referenceRange > <observationRange> <text /> </ observationRange> </referenceRange> </observation> </ component> <component> <observation moodCode="EVN" classCode="OBS"> <templateId root="10.29.840.1.128196.10..4.2" /> <id nullFlavor="NA" /> <code codeSystem="local" code="URBC" displayName= "RBC, Urine" /> <statusCode code="completed" /> < effectiveTime value="" /> <value unit="/HPF" xsi:type="PQ" value="10" /> <interpretationCode codeSystem="local" code="*" /> <referenceRange> <observationRange> <text>0-2</text > </observationRange> </referenceRange> </observation > </component> <component> <observation moodCode="EVN" classCode="OBS"> <templateId root="10.29.840.1.851248.10...4.2" /> <id nullFlavor="NA" /> <code codeSystem="local" code="UMUC" displayName="Urine Mucus" /> <statusCode code="completed" /> < effectiveTime value="" /> <value unit="NA" xsi:type="PQ" value="Present" /> <referenceRange> <observationRange> <text /> </observationRange> </referenceRange> </observation> </component> <component> <observation moodCode="EVN" classCode="OBS"> <templateId root= "10.29.840.1.154988.10...4.2" /> <id nullFlavor="NA" /> < code codeSystem="local" code="UWBC" displayName="WBC, Urine" /> < statusCode code="completed" /> <effectiveTime value="[id number]" /> <value unit="/HPF" xsi:type="PQ" value="20" /> < interpretationCode codeSystem="local" code="*" /> <referenceRange> <observationRange> <text>0-4</text> </ observationRange> </referenceRange> </observation> </ component> </organizer> </entry> <entry> <organizer moodCode="EVN" classCode="BATTERY"> <templateId root="10.29.840.1.988403.10..22.4.1" /> <id nullFlavor="NA" /> <code codeSystem="local" code="UDRGH" displayName="Urine Drug Screen" /> <statusCode code="completed" /> < component> <observation moodCode="EVN" classCode="OBS"> < templateId root="10.29.840.1.083479.10..22.4.2" /> <id nullFlavor="NA " /> <code codeSystem="local" code="UAMP1" displayName="Amph/Meth/ Ecstasy" /> <statusCode code="completed" /> <effectiveTime value="100765242526" /> <value unit="NA" xsi:type="PQ" value="Negative " /> <referenceRange> <observationRange> <text /> </observationRange> </referenceRange> </ observation> </component> <component> <observation moodCode= "EVN" classCode="OBS"> <templateId root="216.840.1.243778.10...4.2 " /> <id nullFlavor="NA" /> <code codeSystem="local" code= "UBAR1" displayName="Barbiturates" /> <statusCode code="completed" /> <effectiveTime value="" /> <value unit="NA" xsi: type="PQ" value="Negative" /> <referenceRange> < observationRange> <text /> </observationRange> </referenceRange> </observation> </component> <component> <observation moodCode="EVN" classCode="OBS"> <templateId root= "216.840.1.430934...4.2" /> <id nullFlavor="NA" /> < code codeSystem="local" code="UBEN1" displayName="Benzodiazepine" /> < statusCode code="completed" /> <effectiveTime value="" /> <value unit="NA" xsi:type="PQ" value="Negative" /> < referenceRange> <observationRange> <text /> < /observationRange> </referenceRange> </observation> </ component> <component> <observation moodCode="EVN" classCode="OBS"> <templateId root="216.840.1.675495.10..4.2" /> <id nullFlavor="NA" /> <code codeSystem="local" code="UCAN1" displayName= "Cannabinoid" /> <statusCode code="completed" /> < effectiveTime value="" /> <value unit="NA" xsi:type="PQ" value="Negative" /> <referenceRange> <observationRange> <text /> </observationRange> </referenceRange> </observation> </component> <component> <observation moodCode="EVN" classCode="OBS"> <templateId root= "216.840.1.760546.10.4.2" /> <id nullFlavor="NA" /> < code codeSystem="local" code="UCOC1" displayName="Cocaine" /> < statusCode code="completed" /> <effectiveTime value="" /> <value unit="NA" xsi:type="PQ" value="Negative" /> < referenceRange> <observationRange> <text /> < /observationRange> </referenceRange> </observation> </ component> <component> <observation moodCode="EVN" classCode="OBS"> <templateId root="216.840.1.859100.07.02.22.4.2" /> <id nullFlavor="NA" /> <code codeSystem="local" code="UMTD1" displayName= "EDDP (Methadone met.)" /> <statusCode code="completed" /> < effectiveTime value="" /> <value unit="NA" xsi:type="PQ" value="Negative" /> <referenceRange> <observationRange> <text /> </observationRange> </referenceRange> </observation> </component> <component> <observation moodCode="EVN" classCode="OBS"> <templateId root= "16.840.1.902466.10.4.2" /> <id nullFlavor="NA" /> < code codeSystem="local" code="UOPI1" displayName="Opiate" /> < statusCode code="completed" /> <effectiveTime value="" /> <value unit="NA" xsi:type="PQ" value="Negative" /> < referenceRange> <observationRange> <text /> < /observationRange> </referenceRange> </observation> </ component> <component> <observation moodCode="EVN" classCode="OBS"> <templateId root="216.840.1.245959.10..22.4.2" /> <id nullFlavor="NA" /> <code codeSystem="local" code="UPCP1" displayName= "Phencyclidine (PCP)" /> <statusCode code="completed" /> < effectiveTime value="819699629771" /> <value unit="NA" xsi:type="PQ" value="Negative" /> <referenceRange> <observationRange> <text /> </observationRange> </referenceRange> </observation> </component> </organizer> </entry> <entry> < organizer moodCode="EVN" classCode="BATTERY"> <templateId root= "216.840.1.576563.10..22.4.1" /> <id nullFlavor="NA" /> <code codeSystem="local" code="TSHR" displayName="TSH with Reflex Free T4" /> < statusCode code="completed" /> <component> <observation moodCode= "EVN" classCode="OBS"> <templateId root="216.840.1.484508.10..22.4.2 " /> <id nullFlavor="NA" /> <code codeSystem="local" code= "TSHR" displayName="TSH with Reflex Free T4" /> <statusCode code= "completed" /> <effectiveTime value="116870598881" /> <value unit="uIU/mL" xsi:type="PQ" value="0.84" /> <referenceRange> <observationRange> <text>0.35-4.94</text> </ observationRange> </referenceRange> </observation> </ component> </organizer> </entry> <entry> <organizer moodCode="EVN" classCode="BATTERY"> <templateId root="216.840.1.869941.10..22.4.1" /> <id nullFlavor="NA" /> <code codeSystem="local" code="CBCWD" displayName="CBC With Platelet and Differential" /> <statusCode code= "completed" /> <component> <observation moodCode="EVN" classCode= "OBS"> <templateId root="216.840.1.195435.10..22.4.2" /> < id nullFlavor="NA" /> <code codeSystem="local" code="ABASR" displayName ="Absolute Basophils" /> <statusCode code="completed" /> < effectiveTime value="849181305003" /> <value unit="10*3/uL" xsi:type= "PQ" value="0.03" /> <referenceRange> <observationRange> <text>0.00-0.20</text> </observationRange> </ referenceRange> </observation> </component> <component> <observation moodCode="EVN" classCode="OBS"> <templateId root= "216.840.1.999095.10..22.4.2" /> <id nullFlavor="NA" /> < code codeSystem="local" code="AEOSR" displayName="Absolute Eosinophils" /> <statusCode code="completed" /> <effectiveTime value="969688942199 " /> <value unit="10*3/uL" xsi:type="PQ" value="0.15" /> < referenceRange> <observationRange> <text>0.00-0.50</text > </observationRange> </referenceRange> </observation > </component> <component> <observation moodCode="EVN" classCode="OBS"> <templateId root="16.840.1.959667.10.2022.4.2" /> <id nullFlavor="NA" /> <code codeSystem="local" code="ALYMR" displayName="Absolute Lymphocytes" /> <statusCode code="completed" /> <effectiveTime value="143356245677" /> <value unit="10*3/uL" xsi:type="PQ" value="1.44" /> <referenceRange> < observationRange> <text>0.80-3.30</text> </ observationRange> </referenceRange> </observation> </ component> <component> <observation moodCode="EVN" classCode="OBS"> <templateId root="16.840.1.547280.10.4.2" /> <id nullFlavor="NA" /> <code codeSystem="local" code="AMONR" displayName= "Absolute Monocytes" /> <statusCode code="completed" /> < effectiveTime value="" /> <value unit="10*3/uL" xsi:type= "PQ" value="0.75" /> <referenceRange> <observationRange> <text>0.30-1.00</text> </observationRange> </ referenceRange> </observation> </component> <component> <observation moodCode="EVN" classCode="OBS"> <templateId root= "10.29.840.1.651627.10.2022.4.2" /> <id nullFlavor="NA" /> < code codeSystem="local" code="ASEGR" displayName="Absolute Neutrophils" /> <statusCode code="completed" /> <effectiveTime value="588164927272 " /> <value unit="10*3/uL" xsi:type="PQ" value="7.74" /> < interpretationCode codeSystem="local" code="*" /> <referenceRange> <observationRange> <text>1.90-7.00</text> </ observationRange> </referenceRange> </observation> </ component> <component> <observation moodCode="EVN" classCode="OBS"> <templateId root="16.840.1.217987.10.2022.4.2" /> <id nullFlavor="NA" /> <code codeSystem="local" code="BASOR" displayName= "Basophils" /> <statusCode code="completed" /> <effectiveTime value="" /> <value unit="%" xsi:type="PQ" value="0" /> <referenceRange> <observationRange> <text>0-2< /text> </observationRange> </referenceRange> </ observation> </component> <component> <observation moodCode= "EVN" classCode="OBS"> <templateId root="10.29.840.1.131726.1022.4.2 " /> <id nullFlavor="NA" /> <code codeSystem="local" code= "EOSR" displayName="Eosinophils" /> <statusCode code="completed" /> <effectiveTime value="" /> <value unit="%" xsi: type="PQ" value="2" /> <referenceRange> <observationRange> <text>0-4</text> </observationRange> </ referenceRange> </observation> </component> <component> <observation moodCode="EVN" classCode="OBS"> <templateId root= "10.29.840.1.861201.10.2022.4.2" /> <id nullFlavor="NA" /> < code codeSystem="local" code="HCT" displayName="HCT" /> <statusCode code="completed" /> <effectiveTime value="265389302752" /> < value unit="%" xsi:type="PQ" value="46.8" /> <referenceRange> <observationRange> <text>42.0-52.0</text> </ observationRange> </referenceRange> </observation> </ component> <component> <observation moodCode="EVN" classCode="OBS"> <templateId root="216.840.1.040738.10..22.4.2" /> <id nullFlavor="NA" /> <code codeSystem="local" code="HGB" displayName="HGB " /> <statusCode code="completed" /> <effectiveTime value= "750932298345" /> <value unit="g/dL" xsi:type="PQ" value="15.8" /> <referenceRange> <observationRange> <text>14.0- 18.0</text> </observationRange> </referenceRange> </ observation> </component> <component> <observation moodCode= "EVN" classCode="OBS"> <templateId root="2.840.1.662306.10...4.2 " /> <id nullFlavor="NA" /> <code codeSystem="local" code= "IMGA" displayName="Immature Granulocytes" /> <statusCode code= "completed" /> <effectiveTime value="516941226839" /> <value unit="%" xsi:type="PQ" value="0.3" /> <referenceRange> < observationRange> <text>0.0-1.0</text> </ observationRange> </referenceRange> </observation> </ component> <component> <observation moodCode="EVN" classCode="OBS"> <templateId root="216.840.1.416497.10.20.22.4.2" /> <id nullFlavor="NA" /> <code codeSystem="local" code="LYMPR" displayName= "Lymphocytes" /> <statusCode code="completed" /> < effectiveTime value="" /> <value unit="%" xsi:type="PQ " value="14" /> <interpretationCode codeSystem="local" code="*" /> <referenceRange> <observationRange> <text>20-46</ text> </observationRange> </referenceRange> </ observation> </component> <component> <observation moodCode= "EVN" classCode="OBS"> <templateId root="2.16.840.1.522334.10...4.2 " /> <id nullFlavor="NA" /> <code codeSystem="local" code="MCH " displayName="MCH" /> <statusCode code="completed" /> < effectiveTime value="" /> <value unit="pg" xsi:type="PQ" value="29.0" /> <referenceRange> <observationRange> <text>27.0-32.0</text> </observationRange> </ referenceRange> </observation> </component> <component> <observation moodCode="EVN" classCode="OBS"> <templateId root= "216.840.1.263241.10..22.4.2" /> <id nullFlavor="NA" /> < code codeSystem="local" code="MCHC" displayName="MCHC" /> <statusCode code="completed" /> <effectiveTime value="" /> < value unit="g/dL" xsi:type="PQ" value="33.8" /> <referenceRange> <observationRange> <text>32.0-36.0</text> </ observationRange> </referenceRange> </observation> </ component> <component> <observation moodCode="EVN" classCode="OBS"> <templateId root="16.840.1.972468.10.20.22.4.2" /> <id nullFlavor="NA" /> <code codeSystem="local" code="MCV" displayName="MCV " /> <statusCode code="completed" /> <effectiveTime value= "" /> <value unit="fL" xsi:type="PQ" value="86.0" /> <referenceRange> <observationRange> <text>82.0-99.0< /text> </observationRange> </referenceRange> </ observation> </component> <component> <observation moodCode= "EVN" classCode="OBS"> <templateId root="10.29.840.1.932298..22.4.2 " /> <id nullFlavor="NA" /> <code codeSystem="local" code= "MONOR" displayName="Monocytes" /> <statusCode code="completed" /> <effectiveTime value="" /> <value unit="%" xsi: type="PQ" value="7" /> <referenceRange> <observationRange> <text>4-11</text> </observationRange> </ referenceRange> </observation> </component> <component> <observation moodCode="EVN" classCode="OBS"> <templateId root= "10.29.840.1.451058.10.20.22.4.2" /> <id nullFlavor="NA" /> < code codeSystem="local" code="MPV" displayName="MPV" /> <statusCode code="completed" /> <effectiveTime value="915062264684" /> < value unit="fL" xsi:type="PQ" value="10.8" /> <referenceRange> <observationRange> <text>9.4-12.3</text> </ observationRange> </referenceRange> </observation> </ component> <component> <observation moodCode="EVN" classCode="OBS"> <templateId root="216.840.1.274348.10.4.2" /> <id nullFlavor="NA" /> <code codeSystem="local" code="SEGR" displayName= "Neutrophils" /> <statusCode code="completed" /> < effectiveTime value="" /> <value unit="%" xsi:type="PQ " value="76" /> <interpretationCode codeSystem="local" code="*" /> <referenceRange> <observationRange> <text>51-75</ text> </observationRange> </referenceRange> </ observation> </component> <component> <observation moodCode= "EVN" classCode="OBS"> <templateId root="10.29.840.1.657742.07.02.22.4.2 " /> <id nullFlavor="NA" /> <code codeSystem="local" code= "NRBCA" displayName="Nucleated RBC Automated" /> <statusCode code= "completed" /> <effectiveTime value="" /> <value unit="/100WBC" xsi:type="PQ" value="0.0" /> <referenceRange> <observationRange> <text /> </observationRange> </referenceRange> </observation> </component> <component> <observation moodCode="EVN" classCode="OBS"> <templateId root= "10.29.840.1.960310.07.02.22.4.2" /> <id nullFlavor="NA" /> < code codeSystem="local" code="PLT" displayName="Platelet Count" /> < statusCode code="completed" /> <effectiveTime value="" /> <value unit="K/uL" xsi:type="PQ" value="208" /> < referenceRange> <observationRange> <text>150-400</text> </observationRange> </referenceRange> </observation > </component> <component> <observation moodCode="EVN" classCode="OBS"> <templateId root="16.840.1.672469.10.20.22.4.2" /> <id nullFlavor="NA" /> <code codeSystem="local" code="RBC" displayName="RBC" /> <statusCode code="completed" /> < effectiveTime value="985992469670" /> <value unit="10*6/uL" xsi:type= "PQ" value="5.44" /> <referenceRange> <observationRange> <text>4.60-6.20</text> </observationRange> </ referenceRange> </observation> </component> <component> <observation moodCode="EVN" classCode="OBS"> <templateId root= "840.1.975818.10.20.22.4.2" /> <id nullFlavor="NA" /> < code codeSystem="local" code="RDW" displayName="RDW" /> <statusCode code="completed" /> <effectiveTime value="555599656312" /> < value unit="%" xsi:type="PQ" value="13.7" /> <referenceRange> <observationRange> <text>11.5-14.5</text> </ observationRange> </referenceRange> </observation> </ component> <component> <observation moodCode="EVN" classCode="OBS"> <templateId root="10.29.840.1.480204.10.20.22.4.2" /> <id nullFlavor="NA" /> <code codeSystem="local" code="WBCIR" displayName= "WBC" /> <statusCode code="completed" /> <effectiveTime value= "" /> <value unit="K/uL" xsi:type="PQ" value="10.1" /> <referenceRange> <observationRange> <text>4.8-10.8 </text> </observationRange> </referenceRange> </ observation> </component> </organizer> </entry> <entry> <organizer moodCode="EVN" classCode="BATTERY"> <templateId root= "16.840.1.411892.10..22.4.1" /> <id nullFlavor="NA" /> <code codeSystem="local" code="UA" displayName="Urinalysis with reflex microscopic" / > <statusCode code="completed" /> <component> <observation moodCode="EVN" classCode="OBS"> <templateId root= "16.840.1.975993.10..22.4.2" /> <id nullFlavor="NA" /> < code codeSystem="local" code="UAPP" displayName="Appearance" /> < statusCode code="completed" /> <effectiveTime value="" /> <value unit="NA" xsi:type="PQ" value="Clear" /> < referenceRange> <observationRange> <text /> < /observationRange> </referenceRange> </observation> </ component> <component> <observation moodCode="EVN" classCode="OBS"> <templateId root="16.840.1.525607.10..22.4.2" /> <id nullFlavor="NA" /> <code codeSystem="local" code="UBIL" displayName= "Bilirubin" /> <statusCode code="completed" /> <effectiveTime value="" /> <value unit="NA" xsi:type="PQ" value="Negative " /> <referenceRange> <observationRange> <text> Negative</text> </observationRange> </referenceRange> </observation> </component> <component> <observation moodCode ="EVN" classCode="OBS"> <templateId root= "840.1.909613.10.22.4.2" /> <id nullFlavor="NA" /> < code codeSystem="local" code="UBLD" displayName="Blood" /> <statusCode code="completed" /> <effectiveTime value="" /> < value unit="NA" xsi:type="PQ" value="Pos 2+" /> <interpretationCode codeSystem="local" code="*" /> <referenceRange> < observationRange> <text>Negative</text> </ observationRange> </referenceRange> </observation> </ component> <component> <observation moodCode="EVN" classCode="OBS"> <templateId root="840.1.071039.07.02.22.4.2" /> <id nullFlavor="NA" /> <code codeSystem="local" code="UCOLR" displayName= "Color" /> <statusCode code="completed" /> <effectiveTime value="" /> <value unit="NA" xsi:type="PQ" value="Colorless " /> <referenceRange> <observationRange> <text /> </observationRange> </referenceRange> </ observation> </component> <component> <observation moodCode= "EVN" classCode="OBS"> <templateId root="840.1.606303.1022.4.2 " /> <id nullFlavor="NA" /> <code codeSystem="local" code= "UGLU" displayName="Glucose, Urine" /> <statusCode code="completed" /> <effectiveTime value="" /> <value unit="" xsi: type="PQ" value="Negative" /> <referenceRange> < observationRange> <text>Negative</text> </ observationRange> </referenceRange> </observation> </ component> <component> <observation moodCode="EVN" classCode="OBS"> <templateId root="16.840.1.160013.1022.4.2" /> <id nullFlavor="NA" /> <code codeSystem="local" code="UKET" displayName= "Ketones" /> <statusCode code="completed" /> <effectiveTime value="" /> <value unit="" xsi:type="PQ" value="Negative" / > <referenceRange> <observationRange> <text> Negative</text> </observationRange> </referenceRange> </observation> </component> <component> <observation moodCode ="EVN" classCode="OBS"> <templateId root= "10.29.840.1.581169.07.02.22.4.2" /> <id nullFlavor="NA" /> < code codeSystem="local" code="ULEU" displayName="Leukocyte Esterase" /> <statusCode code="completed" /> <effectiveTime value="" / > <value unit="NA" xsi:type="PQ" value="Negative" /> < referenceRange> <observationRange> <text>Negative</text > </observationRange> </referenceRange> </observation > </component> <component> <observation moodCode="EVN" classCode="OBS"> <templateId root="10.29.840.1.031763.1022.4.2" /> <id nullFlavor="NA" /> <code codeSystem="local" code="UNIT" displayName="Nitrites" /> <statusCode code="completed" /> < effectiveTime value="" /> <value unit="NA" xsi:type="PQ" value="Negative" /> <referenceRange> <observationRange> <text>Negative</text> </observationRange> </ referenceRange> </observation> </component> <component> <observation moodCode="EVN" classCode="OBS"> <templateId root= "10.29.840.1.435627.1022.4.2" /> <id nullFlavor="NA" /> < code codeSystem="local" code="UPH" displayName="pH" /> <statusCode code ="completed" /> <effectiveTime value="" /> <value unit="NA" xsi:type="PQ" value="7.0" /> <referenceRange> < observationRange> <text>5.0-8.0</text> </ observationRange> </referenceRange> </observation> </ component> <component> <observation moodCode="EVN" classCode="OBS"> <templateId root="10.29.840.1.646309.07.02.22.4.2" /> <id nullFlavor="NA" /> <code codeSystem="local" code="UPRO" displayName= "Protein" /> <statusCode code="completed" /> <effectiveTime value="" /> <value unit="NA" xsi:type="PQ" value="Negative " /> <referenceRange> <observationRange> <text> Negative</text> </observationRange> </referenceRange> </observation> </component> <component> <observation moodCode ="EVN" classCode="OBS"> <templateId root= "10.29.840.1.301327.1022.4.2" /> <id nullFlavor="NA" /> < code codeSystem="local" code="USPG" displayName="Specific [place]" /> < statusCode code="completed" /> <effectiveTime value="851587634789" /> <value unit="NA" xsi:type="PQ" value="<1.003" /> < referenceRange> <observationRange> <text>1.003-1.030</ text> </observationRange> </referenceRange> </ observation> </component> <component> <observation moodCode= "EVN" classCode="OBS"> <templateId root="16.840.1.651478.10.20.22.4.2 " /> <id nullFlavor="NA" /> <code codeSystem="local" code= "UTYP" displayName="UA Collection type" /> <statusCode code="completed " /> <effectiveTime value="125905766636" /> <value unit="NA" xsi:type="PQ" value="Clean Catch" /> <referenceRange> < observationRange> <text /> </observationRange> </referenceRange> </observation> </component> <component> <observation moodCode="EVN" classCode="OBS"> <templateId root= "16.840.1.393627.10.20.22.4.2" /> <id nullFlavor="NA" /> < code codeSystem="local" code="UURO" displayName="Urobilinogen" /> < statusCode code="completed" /> <effectiveTime value="401494376852" /> <value unit="mg/dL" xsi:type="PQ" value="Negative" /> < referenceRange> <observationRange> <text><1.0</text> </observationRange> </referenceRange> </observation > </component> </organizer> </entry> <entry> <organizer moodCode= "EVN" classCode="BATTERY"> <templateId root="10.29.840.1.762827.10..4.1 " /> <id nullFlavor="NA" /> <code codeSystem="local" code="UMIC" displayName="Urine Microscopic" /> <statusCode code="completed" /> < component> <observation moodCode="EVN" classCode="OBS"> < templateId root="840.1.512121.07.02.22.4.2" /> <id nullFlavor="NA " /> <code codeSystem="local" code="UBAC" displayName="Bacteria" /> <statusCode code="completed" /> <effectiveTime value= "296678624904" /> <value unit="NA" xsi:type="PQ" value="None Seen" /> <referenceRange> <observationRange> <text /> </observationRange> </referenceRange> </observation> </component> <component> <observation moodCode="EVN" classCode= "OBS"> <templateId root="840.1.493955.07.02.22.4.2" /> < id nullFlavor="NA" /> <code codeSystem="local" code="UEPI" displayName= "Epithelial Cells" /> <statusCode code="completed" /> < effectiveTime value="168661033906" /> <value unit="/HPF" xsi:type="PQ" value="None Seen" /> <referenceRange> <observationRange> <text /> </observationRange> </referenceRange> </observation> </component> <component> <observation moodCode="EVN" classCode="OBS"> <templateId root= "840.1.548077.07.02.22.4.2" /> <id nullFlavor="NA" /> < code codeSystem="local" code="URBC" displayName="RBC, Urine" /> < statusCode code="completed" /> <effectiveTime value="" /> <value unit="/HPF" xsi:type="PQ" value="0" /> <referenceRange > <observationRange> <text>0-2</text> </ observationRange> </referenceRange> </observation> </ component> <component> <observation moodCode="EVN" classCode="OBS"> <templateId root="10.29.840.1.749388.10.4.2" /> <id nullFlavor="NA" /> <code codeSystem="local" code="UWBC" displayName= "WBC, Urine" /> <statusCode code="completed" /> < effectiveTime value="" /> <value unit="/HPF" xsi:type="PQ" value="0" /> <referenceRange> <observationRange> <text>0-4</text> </observationRange> </referenceRange> </observation> </component> </organizer> </entry> <entry> < organizer moodCode="EVN" classCode="BATTERY"> <templateId root= "10.29.840.1.949885.07.02.22.4.1" /> <id nullFlavor="NA" /> <code codeSystem="local" code="CMP" displayName="Comprehensive Metabolic Panel (CMP)" /> <statusCode code="completed" /> <component> <observation moodCode="EVN" classCode="OBS"> <templateId root= "10.29.840.1.238509.22.4.2" /> <id nullFlavor="NA" /> < code codeSystem="local" code="ALB" displayName="Albumin" /> < statusCode code="completed" /> <effectiveTime value="[id number]" /> <value unit="g/dL" xsi:type="PQ" value="4.2" /> < referenceRange> <observationRange> <text>3.5-4.8</text> </observationRange> </referenceRange> </observation > </component> <component> <observation moodCode="EVN" classCode="OBS"> <templateId root="16.840.1.174183.10...4.2" /> <id nullFlavor="NA" /> <code codeSystem="local" code="ALP" displayName="Alkaline Phosphatase" /> <statusCode code="completed" /> <effectiveTime value="240775553148" /> <value unit="U/L" xsi: type="PQ" value="78" /> <referenceRange> <observationRange> <text>26-104</text> </observationRange> </ referenceRange> </observation> </component> <component> <observation moodCode="EVN" classCode="OBS"> <templateId root= "10.29.840.1.155859.10..4.2" /> <id nullFlavor="NA" /> < code codeSystem="local" code="ALT" displayName="ALT (SGPT)" /> < statusCode code="completed" /> <effectiveTime value="074231676958" /> <value unit="U/L" xsi:type="PQ" value="18" /> <referenceRange > <observationRange> <text>17-63</text> </ observationRange> </referenceRange> </observation> </ component> <component> <observation moodCode="EVN" classCode="OBS"> <templateId root="10.29.840.1.878013.10..4.2" /> <id nullFlavor="NA" /> <code codeSystem="local" code="AGAP" displayName= "Anion Gap" /> <statusCode code="completed" /> <effectiveTime value="" /> <value unit="mEq/L" xsi:type="PQ" value="8" /> <referenceRange> <observationRange> <text>3-20 </text> </observationRange> </referenceRange> </ observation> </component> <component> <observation moodCode= "EVN" classCode="OBS"> <templateId root="216.840.1.186118.10...4.2 " /> <id nullFlavor="NA" /> <code codeSystem="local" code="AST " displayName="AST (SGOT)" /> <statusCode code="completed" /> <effectiveTime value="" /> <value unit="U/L" xsi:type="PQ" value="26" /> <referenceRange> <observationRange> <text>15-41</text> </observationRange> </referenceRange > </observation> </component> <component> <observation moodCode="EVN" classCode="OBS"> <templateId root= "10.29.840.1.948498.10...4.2" /> <id nullFlavor="NA" /> < code codeSystem="local" code="BILIT" displayName="Bilirubin Total" /> < statusCode code="completed" /> <effectiveTime value="" /> <value unit="mg/dL" xsi:type="PQ" value="1.0" /> < referenceRange> <observationRange> <text>0.2-1.2</text> </observationRange> </referenceRange> </observation > </component> <component> <observation moodCode="EVN" classCode="OBS"> <templateId root="16.840.1.503721.10..22.4.2" /> <id nullFlavor="NA" /> <code codeSystem="local" code="BUN" displayName="BUN" /> <statusCode code="completed" /> < effectiveTime value="028923390820" /> <value unit="mg/dL" xsi:type="PQ " value="14" /> <referenceRange> <observationRange> <text>4-20</text> </observationRange> </referenceRange > </observation> </component> <component> <observation moodCode="EVN" classCode="OBS"> <templateId root= "16.840.1.187462.10.20.22.4.2" /> <id nullFlavor="NA" /> < code codeSystem="local" code="CA" displayName="Calcium" /> <statusCode code="completed" /> <effectiveTime value="" /> < value unit="mg/dL" xsi:type="PQ" value="9.7" /> <referenceRange> <observationRange> <text>8.6-10.0</text> </ observationRange> </referenceRange> </observation> </ component> <component> <observation moodCode="EVN" classCode="OBS"> <templateId root="16.840.1.951639.10.20.22.4.2" /> <id nullFlavor="NA" /> <code codeSystem="local" code="CL" displayName= "Chloride" /> <statusCode code="completed" /> <effectiveTime value="" /> <value unit="mEq/L" xsi:type="PQ" value="98" / > <interpretationCode codeSystem="local" code="*" /> < referenceRange> <observationRange> <text>99-109</text> </observationRange> </referenceRange> </observation> </component> <component> <observation moodCode="EVN" classCode ="OBS"> <templateId root="2.16.840.1.322296.10.22.4.2" /> < id nullFlavor="NA" /> <code codeSystem="local" code="CO2" displayName= "CO2" /> <statusCode code="completed" /> <effectiveTime value= "" /> <value unit="mEq/L" xsi:type="PQ" value="29" /> <referenceRange> <observationRange> <text>22-32</ text> </observationRange> </referenceRange> </ observation> </component> <component> <observation moodCode= "EVN" classCode="OBS"> <templateId root="216.840.1.249591.07.02.22.4.2 " /> <id nullFlavor="NA" /> <code codeSystem="local" code= "CREAT" displayName="Creatinine" /> <statusCode code="completed" /> <effectiveTime value="" /> <value unit="mg/dL" xsi: type="PQ" value="0.96" /> <referenceRange> <observationRange > <text>0.64-1.27</text> </observationRange> </ referenceRange> </observation> </component> <component> <observation moodCode="EVN" classCode="OBS"> <templateId root= "16.840.1.050661.1022.4.2" /> <id nullFlavor="NA" /> < code codeSystem="local" code="GLOB" displayName="Globulin" /> < statusCode code="completed" /> <effectiveTime value="396243564808" /> <value unit="g/dL" xsi:type="PQ" value="3.0" /> < referenceRange> <observationRange> <text>1.9-4.3</text> </observationRange> </referenceRange> </observation > </component> <component> <observation moodCode="EVN" classCode="OBS"> <templateId root="216.840.1.148817.10..22.4.2" /> <id nullFlavor="NA" /> <code codeSystem="local" code="GLU" displayName="Glucose" /> <statusCode code="completed" /> < effectiveTime value="638164503226" /> <value unit="mg/dL" xsi:type="PQ " value="120" /> <interpretationCode codeSystem="local" code="*" /> <referenceRange> <observationRange> <text>70-100< /text> </observationRange> </referenceRange> </ observation> </component> <component> <observation moodCode= "EVN" classCode="OBS"> <templateId root="16.840.1.014928...4.2 " /> <id nullFlavor="NA" /> <code codeSystem="local" code="K" displayName="Potassium" /> <statusCode code="completed" /> < effectiveTime value="232258534910" /> <value unit="mEq/L" xsi:type="PQ " value="3.0" /> <interpretationCode codeSystem="local" code="*" /> <referenceRange> <observationRange> <text>3.6-5.1 </text> </observationRange> </referenceRange> </ observation> </component> <component> <observation moodCode= "EVN" classCode="OBS"> <templateId root="16.840.1.312322.10..4.2 " /> <id nullFlavor="NA" /> <code codeSystem="local" code="TP " displayName="Protein" /> <statusCode code="completed" /> < effectiveTime value="917319931913" /> <value unit="g/dL" xsi:type="PQ" value="7.2" /> <referenceRange> <observationRange> <text>6.1-7.9</text> </observationRange> </ referenceRange> </observation> </component> <component> <observation moodCode="EVN" classCode="OBS"> <templateId root= "840.1.854790.07.02.22.4.2" /> <id nullFlavor="NA" /> < code codeSystem="local" code="NA" displayName="Sodium" /> <statusCode code="completed" /> <effectiveTime value="" /> < value unit="mEq/L" xsi:type="PQ" value="135" /> <interpretationCode codeSystem="local" code="*" /> <referenceRange> < observationRange> <text>136-144</text> </ observationRange> </referenceRange> </observation> </ component> </organizer> </entry> <entry> <organizer moodCode="EVN" classCode="BATTERY"> <templateId root="10.29.840.1.633134.07.02.22.4.1" /> <id nullFlavor="NA" /> <code codeSystem="local" code="LACID" displayName="Lactic Acid Venous" /> <statusCode code="completed" /> < component> <observation moodCode="EVN" classCode="OBS"> < templateId root="10.29.840.1.874781.07.02.22.4.2" /> <id nullFlavor="NA " /> <code codeSystem="local" code="LACID" displayName="Lactic Acid Venous" /> <statusCode code="completed" /> <effectiveTime value="188956991498" /> <value unit="mEq/L" xsi:type="PQ" value="1.1" / > <referenceRange> <observationRange> <text>0.5 -2.0</text> </observationRange> </referenceRange> </ observation> </component> </organizer> </entry> <entry> <organizer moodCode="EVN" classCode="BATTERY"> <templateId root= "10.29.840.1.190109.07.02.22.4.1" /> <id nullFlavor="NA" /> <code codeSystem="local" code="GFR" displayName="eGFR" /> <statusCode code= "completed" /> <component> <observation moodCode="EVN" classCode= "OBS"> <templateId root="840.1.461017.07.02.22.4.2" /> < id nullFlavor="NA" /> <code codeSystem="local" code="GFR" displayName= "eGFR" /> <statusCode code="completed" /> <effectiveTime value ="413953739035" /> <value unit="mL/min" xsi:type="PQ" value=">60" / > <referenceRange> <observationRange> <text>&gt ;60</text> </observationRange> </referenceRange> </ observation> </component> </organizer> </entry> <entry> <organizer moodCode="EVN" classCode="BATTERY"> <templateId root= "10.29.840.1.851389.22.4.1" /> <id nullFlavor="NA" /> <code codeSystem="local" code="MG" displayName="Magnesium" /> <statusCode code= "completed" /> <component> <observation moodCode="EVN" classCode= "OBS"> <templateId root="10.29.840.1.634643.07.02.22.4.2" /> < id nullFlavor="NA" /> <code codeSystem="local" code="MG" displayName= "Magnesium" /> <statusCode code="completed" /> <effectiveTime value="046174574814" /> <value unit="mg/dL" xsi:type="PQ" value="1.9" / > <referenceRange> <observationRange> <text>1.8 -2.5</text> </observationRange> </referenceRange> </ observation> </component> </organizer> </entry> <entry> <organizer moodCode="EVN" classCode="BATTERY"> <templateId root= "216.840.1.028153.10..22.4.1" /> <id nullFlavor="NA" /> <code codeSystem="local" code="BMP" displayName="Basic Metabolic Panel (BMP)" /> <statusCode code="completed" /> <component> <observation moodCode= "EVN" classCode="OBS"> <templateId root="216.840.1.666135.10..22.4.2 " /> <id nullFlavor="NA" /> <code codeSystem="local" code= "AGAP" displayName="Anion Gap" /> <statusCode code="completed" /> <effectiveTime value="192318288974" /> <value unit="mEq/L" xsi: type="PQ" value="6" /> <referenceRange> <observationRange> <text>3-20</text> </observationRange> </ referenceRange> </observation> </component> <component> <observation moodCode="EVN" classCode="OBS"> <templateId root= "16.840.1.209496.10..22.4.2" /> <id nullFlavor="NA" /> < code codeSystem="local" code="BUN" displayName="BUN" /> <statusCode code="completed" /> <effectiveTime value="401725861320" /> < value unit="mg/dL" xsi:type="PQ" value="27" /> <interpretationCode codeSystem="local" code="*" /> <referenceRange> < observationRange> <text>4-20</text> </observationRange> </referenceRange> </observation> </component> < component> <observation moodCode="EVN" classCode="OBS"> < templateId root="10.29.840.1.842870.10.22.4.2" /> <id nullFlavor="NA " /> <code codeSystem="local" code="CA" displayName="Calcium" /> <statusCode code="completed" /> <effectiveTime value="102687644581 " /> <value unit="mg/dL" xsi:type="PQ" value="9.7" /> < referenceRange> <observationRange> <text>8.6-10.0</text > </observationRange> </referenceRange> </observation > </component> <component> <observation moodCode="EVN" classCode="OBS"> <templateId root="840.1.467993.10.22.4.2" /> <id nullFlavor="NA" /> <code codeSystem="local" code="CL" displayName="Chloride" /> <statusCode code="completed" /> < effectiveTime value="427059092696" /> <value unit="mEq/L" xsi:type="PQ " value="109" /> <referenceRange> <observationRange> <text>99-109</text> </observationRange> </ referenceRange> </observation> </component> <component> <observation moodCode="EVN" classCode="OBS"> <templateId root= "10.29.840.1.454103.10.4.2" /> <id nullFlavor="NA" /> < code codeSystem="local" code="CO2" displayName="CO2" /> <statusCode code="completed" /> <effectiveTime value="" /> < value unit="mEq/L" xsi:type="PQ" value="24" /> <referenceRange> <observationRange> <text>22-32</text> </ observationRange> </referenceRange> </observation> </ component> <component> <observation moodCode="EVN" classCode="OBS"> <templateId root="2.16.840.1.971549.07.02.22.4.2" /> <id nullFlavor="NA" /> <code codeSystem="local" code="CREAT" displayName= "Creatinine" /> <statusCode code="completed" /> < effectiveTime value="" /> <value unit="mg/dL" xsi:type="PQ " value="1.22" /> <referenceRange> <observationRange> <text>0.64-1.27</text> </observationRange> </ referenceRange> </observation> </component> <component> <observation moodCode="EVN" classCode="OBS"> <templateId root= "2.16.840.1.770991.07.02.22.4.2" /> <id nullFlavor="NA" /> < code codeSystem="local" code="GLU" displayName="Glucose" /> < statusCode code="completed" /> <effectiveTime value="" /> <value unit="mg/dL" xsi:type="PQ" value="95" /> < referenceRange> <observationRange> <text>70-100</text> </observationRange> </referenceRange> </observation> </component> <component> <observation moodCode="EVN" classCode ="OBS"> <templateId root="840.1.351728.10.22.4.2" /> < id nullFlavor="NA" /> <code codeSystem="local" code="K" displayName= "Potassium" /> <statusCode code="completed" /> <effectiveTime value="764684741213" /> <value unit="mEq/L" xsi:type="PQ" value="4.1" / > <referenceRange> <observationRange> <text>3.6 -5.1</text> </observationRange> </referenceRange> </ observation> </component> <component> <observation moodCode= "EVN" classCode="OBS"> <templateId root="840.1.816040.22.4.2 " /> <id nullFlavor="NA" /> <code codeSystem="local" code="NA " displayName="Sodium" /> <statusCode code="completed" /> < effectiveTime value="028996900997" /> <value unit="mEq/L" xsi:type="PQ " value="139" /> <referenceRange> <observationRange> <text>136-144</text> </observationRange> </ referenceRange> </observation> </component> </organizer> </entry > <entry> <organizer moodCode="EVN" classCode="BATTERY"> <templateId root="840.1.300712.1022.4.1" /> <id nullFlavor="NA" /> <code codeSystem="local" code="GFR" displayName="eGFR" /> <statusCode code= "completed" /> <component> <observation moodCode="EVN" classCode= "OBS"> <templateId root="840.1.267911.102022.4.2" /> < id nullFlavor="NA" /> <code codeSystem="local" code="GFR" displayName= "eGFR" /> <statusCode code="completed" /> <effectiveTime value ="704906158525" /> <value unit="mL/min" xsi:type="PQ" value="60" /> <referenceRange> <observationRange> <text>>60< /text> </observationRange> </referenceRange> </ observation> </component> </organizer> </entry> <entry> <organizer moodCode="EVN" classCode="BATTERY"> <templateId root= "216.840.1.199296.10..22.4.1" /> <id nullFlavor="NA" /> <code codeSystem="local" code="B12FO" displayName="B12 and Folate" /> < statusCode code="completed" /> <component> <observation moodCode= "EVN" classCode="OBS"> <templateId root="216.840.1.161781.10..22.4.2 " /> <id nullFlavor="NA" /> <code codeSystem="local" code= "FOLAT" displayName="Folate" /> <statusCode code="completed" /> <effectiveTime value="833491833808" /> <value unit="ng/mL" xsi:type= "PQ" value="9.3" /> <referenceRange> <observationRange> <text>7.0-31.4</text> </observationRange> </ referenceRange> </observation> </component> <component> <observation moodCode="EVN" classCode="OBS"> <templateId root= "216.840.1.240963.10..22.4.2" /> <id nullFlavor="NA" /> < code codeSystem="local" code="B12" displayName="Vitamin B12" /> < statusCode code="completed" /> <effectiveTime value="560738764959" /> <value unit="pg/mL" xsi:type="PQ" value="141" /> < interpretationCode codeSystem="local" code="*" /> <referenceRange> <observationRange> <text>213-816</text> </ observationRange> </referenceRange> </observation> </ component> </organizer> </entry> <entry> <organizer moodCode="EVN" classCode="BATTERY"> <templateId root="2.16.840.1.054051.10.20.22.4.1" /> <id nullFlavor="NA" /> <code codeSystem="local" code="HIV" displayName ="HIV Antigen/Antibody Combo" /> <statusCode code="completed" /> < component> <observation moodCode="EVN" classCode="OBS"> < templateId root="216.840.1.068879.10.20.22.4.2" /> <id nullFlavor="NA " /> <code codeSystem="local" code="HIV" displayName="HIV Antigen/ Antibody Combo" /> <statusCode code="completed" /> < effectiveTime value="607530246864" /> <value unit="NA" xsi:type="PQ" value="Negative" /> <referenceRange> <observationRange> <text /> </observationRange> </referenceRange> </observation> </component> </organizer> </entry> <entry> < organizer moodCode="EVN" classCode="BATTERY"> <templateId root= "216.840.1.617389.10.20.22.4.1" /> <id nullFlavor="NA" /> <code codeSystem="local" code="CBCWD" displayName="CBC With Platelet and Differential " /> <statusCode code="completed" /> <component> <observation moodCode="EVN" classCode="OBS"> <templateId root= "216.840.1.360726.10..22.4.2" /> <id nullFlavor="NA" /> < code codeSystem="local" code="ABASR" displayName="Absolute Basophils" /> <statusCode code="completed" /> <effectiveTime value="" /> <value unit="10*3/uL" xsi:type="PQ" value="0.04" /> < referenceRange> <observationRange> <text>0.00-0.20</text > </observationRange> </referenceRange> </observation > </component> <component> <observation moodCode="EVN" classCode="OBS"> <templateId root="16.840.1.168761...4.2" /> <id nullFlavor="NA" /> <code codeSystem="local" code="AEOSR" displayName="Absolute Eosinophils" /> <statusCode code="completed" /> <effectiveTime value="" /> <value unit="10*3/uL" xsi:type="PQ" value="0.24" /> <referenceRange> < observationRange> <text>0.00-0.50</text> </ observationRange> </referenceRange> </observation> </ component> <component> <observation moodCode="EVN" classCode="OBS"> <templateId root="16.840.1.096096....4.2" /> <id nullFlavor="NA" /> <code codeSystem="local" code="ALYMR" displayName= "Absolute Lymphocytes" /> <statusCode code="completed" /> < effectiveTime value="" /> <value unit="10*3/uL" xsi:type= "PQ" value="1.51" /> <referenceRange> <observationRange> <text>0.80-3.30</text> </observationRange> </ referenceRange> </observation> </component> <component> <observation moodCode="EVN" classCode="OBS"> <templateId root= "16.840.1.612347.10.20.22.4.2" /> <id nullFlavor="NA" /> < code codeSystem="local" code="AMONR" displayName="Absolute Monocytes" /> <statusCode code="completed" /> <effectiveTime value="876065862491" /> <value unit="10*3/uL" xsi:type="PQ" value="0.70" /> < referenceRange> <observationRange> <text>0.30-1.00</text > </observationRange> </referenceRange> </observation > </component> <component> <observation moodCode="EVN" classCode="OBS"> <templateId root="840.1.587158.10.22.4.2" /> <id nullFlavor="NA" /> <code codeSystem="local" code="ASEGR" displayName="Absolute Neutrophils" /> <statusCode code="completed" /> <effectiveTime value="673487781826" /> <value unit="10*3/uL" xsi:type="PQ" value="5.96" /> <referenceRange> < observationRange> <text>1.90-7.00</text> </ observationRange> </referenceRange> </observation> </ component> <component> <observation moodCode="EVN" classCode="OBS"> <templateId root="10.29.840.1.041151.10.20.22.4.2" /> <id nullFlavor="NA" /> <code codeSystem="local" code="BASOR" displayName= "Basophils" /> <statusCode code="completed" /> <effectiveTime value="183562654166" /> <value unit="%" xsi:type="PQ" value="1" /> <referenceRange> <observationRange> <text>0-2< /text> </observationRange> </referenceRange> </ observation> </component> <component> <observation moodCode= "EVN" classCode="OBS"> <templateId root="16.840.1.151302.10..4.2 " /> <id nullFlavor="NA" /> <code codeSystem="local" code= "EOSR" displayName="Eosinophils" /> <statusCode code="completed" /> <effectiveTime value="692534062953" /> <value unit="%" xsi: type="PQ" value="3" /> <referenceRange> <observationRange> <text>0-4</text> </observationRange> </ referenceRange> </observation> </component> <component> <observation moodCode="EVN" classCode="OBS"> <templateId root= "16.840.1.840076.07.02.22.4.2" /> <id nullFlavor="NA" /> < code codeSystem="local" code="HCT" displayName="HCT" /> <statusCode code="completed" /> <effectiveTime value="928858231821" /> < value unit="%" xsi:type="PQ" value="43.5" /> <referenceRange> <observationRange> <text>42.0-52.0</text> </ observationRange> </referenceRange> </observation> </ component> <component> <observation moodCode="EVN" classCode="OBS"> <templateId root="16.840.1.128600...4.2" /> <id nullFlavor="NA" /> <code codeSystem="local" code="HGB" displayName="HGB " /> <statusCode code="completed" /> <effectiveTime value= "037941689792" /> <value unit="g/dL" xsi:type="PQ" value="14.4" /> <referenceRange> <observationRange> <text>14.0- 18.0</text> </observationRange> </referenceRange> </ observation> </component> <component> <observation moodCode= "EVN" classCode="OBS"> <templateId root="2.16.840.1.996641....4.2 " /> <id nullFlavor="NA" /> <code codeSystem="local" code= "IMGA" displayName="Immature Granulocytes" /> <statusCode code= "completed" /> <effectiveTime value="045586692291" /> <value unit="%" xsi:type="PQ" value="0.2" /> <referenceRange> < observationRange> <text>0.0-1.0</text> </ observationRange> </referenceRange> </observation> </ component> <component> <observation moodCode="EVN" classCode="OBS"> <templateId root="2.16.840.1.613759....4.2" /> <id nullFlavor="NA" /> <code codeSystem="local" code="LYMPR" displayName= "Lymphocytes" /> <statusCode code="completed" /> < effectiveTime value="901639405339" /> <value unit="%" xsi:type="PQ " value="18" /> <interpretationCode codeSystem="local" code="*" /> <referenceRange> <observationRange> <text>20-46</ text> </observationRange> </referenceRange> </ observation> </component> <component> <observation moodCode= "EVN" classCode="OBS"> <templateId root="16.840.1.239501.10...4.2 " /> <id nullFlavor="NA" /> <code codeSystem="local" code="MCH " displayName="MCH" /> <statusCode code="completed" /> < effectiveTime value="834421263627" /> <value unit="pg" xsi:type="PQ" value="28.6" /> <referenceRange> <observationRange> <text>27.0-32.0</text> </observationRange> </ referenceRange> </observation> </component> <component> <observation moodCode="EVN" classCode="OBS"> <templateId root= "16.840.1.457184...4.2" /> <id nullFlavor="NA" /> < code codeSystem="local" code="MCHC" displayName="MCHC" /> <statusCode code="completed" /> <effectiveTime value="979082187342" /> < value unit="g/dL" xsi:type="PQ" value="33.1" /> <referenceRange> <observationRange> <text>32.0-36.0</text> </ observationRange> </referenceRange> </observation> </ component> <component> <observation moodCode="EVN" classCode="OBS"> <templateId root="10.29.840.1.096694.10..22.4.2" /> <id nullFlavor="NA" /> <code codeSystem="local" code="MCV" displayName="MCV " /> <statusCode code="completed" /> <effectiveTime value= "770351235226" /> <value unit="fL" xsi:type="PQ" value="86.3" /> <referenceRange> <observationRange> <text>82.0-99.0< /text> </observationRange> </referenceRange> </ observation> </component> <component> <observation moodCode= "EVN" classCode="OBS"> <templateId root="16.840.1.413425.10.2022.4.2 " /> <id nullFlavor="NA" /> <code codeSystem="local" code= "MONOR" displayName="Monocytes" /> <statusCode code="completed" /> <effectiveTime value="946184801949" /> <value unit="%" xsi: type="PQ" value="8" /> <referenceRange> <observationRange> <text>4-11</text> </observationRange> </ referenceRange> </observation> </component> <component> <observation moodCode="EVN" classCode="OBS"> <templateId root= "10.29.840.1.916742.07.02.22.4.2" /> <id nullFlavor="NA" /> < code codeSystem="local" code="MPV" displayName="MPV" /> <statusCode code="completed" /> <effectiveTime value="477793738993" /> < value unit="fL" xsi:type="PQ" value="11.0" /> <referenceRange> <observationRange> <text>9.4-12.3</text> </ observationRange> </referenceRange> </observation> </ component> <component> <observation moodCode="EVN" classCode="OBS"> <templateId root="10.29.840.1.792303.10.2022.4.2" /> <id nullFlavor="NA" /> <code codeSystem="local" code="SEGR" displayName= "Neutrophils" /> <statusCode code="completed" /> < effectiveTime value="773775001801" /> <value unit="%" xsi:type="PQ " value="70" /> <referenceRange> <observationRange> <text>51-75</text> </observationRange> </ referenceRange> </observation> </component> <component> <observation moodCode="EVN" classCode="OBS"> <templateId root= "216.840.1.972467.10.22.4.2" /> <id nullFlavor="NA" /> < code codeSystem="local" code="NRBCA" displayName="Nucleated RBC Automated" /> <statusCode code="completed" /> <effectiveTime value= "" /> <value unit="/100WBC" xsi:type="PQ" value="0.0" /> <referenceRange> <observationRange> <text /> </observationRange> </referenceRange> </observation> </component> <component> <observation moodCode="EVN" classCode= "OBS"> <templateId root="10.29.840.1.264493...4.2" /> < id nullFlavor="NA" /> <code codeSystem="local" code="PLT" displayName= "Platelet Count" /> <statusCode code="completed" /> < effectiveTime value="" /> <value unit="K/uL" xsi:type="PQ" value="199" /> <referenceRange> <observationRange> <text>150-400</text> </observationRange> </ referenceRange> </observation> </component> <component> <observation moodCode="EVN" classCode="OBS"> <templateId root= "16.840.1.852145.10.22.4.2" /> <id nullFlavor="NA" /> < code codeSystem="local" code="RBC" displayName="RBC" /> <statusCode code="completed" /> <effectiveTime value="932186624615" /> < value unit="10*6/uL" xsi:type="PQ" value="5.04" /> <referenceRange> <observationRange> <text>4.60-6.20</text> </ observationRange> </referenceRange> </observation> </ component> <component> <observation moodCode="EVN" classCode="OBS"> <templateId root="2.16.840.1.951914.10.20.22.4.2" /> <id nullFlavor="NA" /> <code codeSystem="local" code="RDW" displayName="RDW " /> <statusCode code="completed" /> <effectiveTime value= "303730036314" /> <value unit="%" xsi:type="PQ" value="13.7" /> <referenceRange> <observationRange> <text>11.5- 14.5</text> </observationRange> </referenceRange> </ observation> </component> <component> <observation moodCode= "EVN" classCode="OBS"> <templateId root="2.16.840.1.527763.10.20.22.4.2 " /> <id nullFlavor="NA" /> <code codeSystem="local" code= "WBCIR" displayName="WBC" /> <statusCode code="completed" /> < effectiveTime value="320743630001" /> <value unit="K/uL" xsi:type="PQ" value="8.5" /> <referenceRange> <observationRange> <text>4.8-10.8</text> </observationRange> </ referenceRange> </observation> </component> </organizer> </entry > <entry> <organizer moodCode="EVN" classCode="BATTERY"> <templateId root="10.29.840.1.498829.10..22.4.1" /> <id nullFlavor="NA" /> <code codeSystem="local" code="CMP" displayName="Comprehensive Metabolic Panel (CMP)" /> <statusCode code="completed" /> <component> <observation moodCode="EVN" classCode="OBS"> <templateId root= "840.1.370142.07.02.22.4.2" /> <id nullFlavor="NA" /> < code codeSystem="local" code="ALB" displayName="Albumin" /> < statusCode code="completed" /> <effectiveTime value="123082447694" /> <value unit="g/dL" xsi:type="PQ" value="3.7" /> < referenceRange> <observationRange> <text>3.5-4.8</text> </observationRange> </referenceRange> </observation > </component> <component> <observation moodCode="EVN" classCode="OBS"> <templateId root="840.1.640819.07.02.22.4.2" /> <id nullFlavor="NA" /> <code codeSystem="local" code="ALP" displayName="Alkaline Phosphatase" /> <statusCode code="completed" /> <effectiveTime value="963989619420" /> <value unit="U/L" xsi: type="PQ" value="67" /> <referenceRange> <observationRange> <text>26-104</text> </observationRange> </ referenceRange> </observation> </component> <component> <observation moodCode="EVN" classCode="OBS"> <templateId root= "10.29.840.1.199033.10..4.2" /> <id nullFlavor="NA" /> < code codeSystem="local" code="ALT" displayName="ALT (SGPT)" /> < statusCode code="completed" /> <effectiveTime value="690662203364" /> <value unit="U/L" xsi:type="PQ" value="22" /> <referenceRange > <observationRange> <text>17-63</text> </ observationRange> </referenceRange> </observation> </ component> <component> <observation moodCode="EVN" classCode="OBS"> <templateId root="10.29.840.1.529887.10..22.4.2" /> <id nullFlavor="NA" /> <code codeSystem="local" code="AGAP" displayName= "Anion Gap" /> <statusCode code="completed" /> <effectiveTime value="320218698719" /> <value unit="mEq/L" xsi:type="PQ" value="7" /> <referenceRange> <observationRange> <text>3-20 </text> </observationRange> </referenceRange> </ observation> </component> <component> <observation moodCode= "EVN" classCode="OBS"> <templateId root="10.29.840.1.756428.10..22.4.2 " /> <id nullFlavor="NA" /> <code codeSystem="local" code="AST " displayName="AST (SGOT)" /> <statusCode code="completed" /> <effectiveTime value="046113436621" /> <value unit="U/L" xsi:type="PQ" value="20" /> <referenceRange> <observationRange> <text>15-41</text> </observationRange> </referenceRange > </observation> </component> <component> <observation moodCode="EVN" classCode="OBS"> <templateId root= "840.1.452126...4.2" /> <id nullFlavor="NA" /> < code codeSystem="local" code="BILIT" displayName="Bilirubin Total" /> < statusCode code="completed" /> <effectiveTime value="915245175709" /> <value unit="mg/dL" xsi:type="PQ" value="0.6" /> < referenceRange> <observationRange> <text>0.2-1.2</text> </observationRange> </referenceRange> </observation > </component> <component> <observation moodCode="EVN" classCode="OBS"> <templateId root="16.840.1.723168.07.02.22.4.2" /> <id nullFlavor="NA" /> <code codeSystem="local" code="BUN" displayName="BUN" /> <statusCode code="completed" /> < effectiveTime value="581230938922" /> <value unit="mg/dL" xsi:type="PQ " value="28" /> <interpretationCode codeSystem="local" code="*" /> <referenceRange> <observationRange> <text>4-20</ text> </observationRange> </referenceRange> </ observation> </component> <component> <observation moodCode= "EVN" classCode="OBS"> <templateId root="10.29.840.1.965637.07.02.22.4.2 " /> <id nullFlavor="NA" /> <code codeSystem="local" code="CA " displayName="Calcium" /> <statusCode code="completed" /> < effectiveTime value="900898364730" /> <value unit="mg/dL" xsi:type="PQ " value="9.2" /> <referenceRange> <observationRange> <text>8.6-10.0</text> </observationRange> </ referenceRange> </observation> </component> <component> <observation moodCode="EVN" classCode="OBS"> <templateId root= "216.840.1.291348.10.22.4.2" /> <id nullFlavor="NA" /> < code codeSystem="local" code="CL" displayName="Chloride" /> < statusCode code="completed" /> <effectiveTime value="571088198856" /> <value unit="mEq/L" xsi:type="PQ" value="104" /> < referenceRange> <observationRange> <text>99-109</text> </observationRange> </referenceRange> </observation> </component> <component> <observation moodCode="EVN" classCode ="OBS"> <templateId root="10.29.840.1.573227.22.4.2" /> < id nullFlavor="NA" /> <code codeSystem="local" code="CO2" displayName= "CO2" /> <statusCode code="completed" /> <effectiveTime value= "029408571154" /> <value unit="mEq/L" xsi:type="PQ" value="26" /> <referenceRange> <observationRange> <text>22-32</ text> </observationRange> </referenceRange> </ observation> </component> <component> <observation moodCode= "EVN" classCode="OBS"> <templateId root="16.840.1.214834.10.22.4.2 " /> <id nullFlavor="NA" /> <code codeSystem="local" code= "CREAT" displayName="Creatinine" /> <statusCode code="completed" /> <effectiveTime value="916100718689" /> <value unit="mg/dL" xsi: type="PQ" value="1.14" /> <referenceRange> <observationRange > <text>0.64-1.27</text> </observationRange> </ referenceRange> </observation> </component> <component> <observation moodCode="EVN" classCode="OBS"> <templateId root= "10.29.840.1.786546.10.20.22.4.2" /> <id nullFlavor="NA" /> < code codeSystem="local" code="GLOB" displayName="Globulin" /> < statusCode code="completed" /> <effectiveTime value="947806095949" /> <value unit="g/dL" xsi:type="PQ" value="2.5" /> < referenceRange> <observationRange> <text>1.9-4.3</text> </observationRange> </referenceRange> </observation > </component> <component> <observation moodCode="EVN" classCode="OBS"> <templateId root="840.1.519182.10...4.2" /> <id nullFlavor="NA" /> <code codeSystem="local" code="GLU" displayName="Glucose" /> <statusCode code="completed" /> < effectiveTime value="958830060704" /> <value unit="mg/dL" xsi:type="PQ " value="110" /> <interpretationCode codeSystem="local" code="*" /> <referenceRange> <observationRange> <text>70-100< /text> </observationRange> </referenceRange> </ observation> </component> <component> <observation moodCode= "EVN" classCode="OBS"> <templateId root="10.29.840.1.371229.10.20.22.4.2 " /> <id nullFlavor="NA" /> <code codeSystem="local" code="K" displayName="Potassium" /> <statusCode code="completed" /> < effectiveTime value="373613881887" /> <value unit="mEq/L" xsi:type="PQ " value="4.4" /> <referenceRange> <observationRange> <text>3.6-5.1</text> </observationRange> </ referenceRange> </observation> </component> <component> <observation moodCode="EVN" classCode="OBS"> <templateId root= "216.840.1.745549.10.20.22.4.2" /> <id nullFlavor="NA" /> < code codeSystem="local" code="TP" displayName="Protein" /> <statusCode code="completed" /> <effectiveTime value="646731326314" /> < value unit="g/dL" xsi:type="PQ" value="6.2" /> <referenceRange> <observationRange> <text>6.1-7.9</text> </ observationRange> </referenceRange> </observation> </ component> <component> <observation moodCode="EVN" classCode="OBS"> <templateId root="16.840.1.739611.10..22.4.2" /> <id nullFlavor="NA" /> <code codeSystem="local" code="NA" displayName= "Sodium" /> <statusCode code="completed" /> <effectiveTime value="186052383066" /> <value unit="mEq/L" xsi:type="PQ" value="137" / > <referenceRange> <observationRange> <text>136 -144</text> </observationRange> </referenceRange> </ observation> </component> </organizer> </entry> <entry> <organizer moodCode="EVN" classCode="BATTERY"> <templateId root= "16.840.1.534436.10..22.4.1" /> <id nullFlavor="NA" /> <code codeSystem="local" code="GFR" displayName="eGFR" /> <statusCode code= "completed" /> <component> <observation moodCode="EVN" classCode= "OBS"> <templateId root="10.29.840.1.733559...4.2" /> < id nullFlavor="NA" /> <code codeSystem="local" code="GFR" displayName= "eGFR" /> <statusCode code="completed" /> <effectiveTime value ="678550270361" /> <value unit="mL/min" xsi:type="PQ" value=">60" / > <referenceRange> <observationRange> <text>&gt ;60</text> </observationRange> </referenceRange> </ observation> </component> </organizer> </entry> <entry> <organizer moodCode="EVN" classCode="BATTERY"> <templateId root= "10.29.840.1.933717.07.02.22.4.1" /> <id nullFlavor="NA" /> <code codeSystem="local" code="UMIC" displayName="Urine Microscopic" /> < statusCode code="completed" /> <component> <observation moodCode= "EVN" classCode="OBS"> <templateId root="10.29.840.1.222410.10..22.4.2 " /> <id nullFlavor="NA" /> <code codeSystem="local" code= "UBAC" displayName="Bacteria" /> <statusCode code="completed" /> <effectiveTime value="270812357277" /> <value unit="NA" xsi:type= "PQ" value="None Seen" /> <referenceRange> <observationRange > <text /> </observationRange> </referenceRange > </observation> </component> <component> <observation moodCode="EVN" classCode="OBS"> <templateId root= "216.840.1.042731.07.02.22.4.2" /> <id nullFlavor="NA" /> < code codeSystem="local" code="UEPI" displayName="Epithelial Cells" /> < statusCode code="completed" /> <effectiveTime value="" /> <value unit="/HPF" xsi:type="PQ" value="0" /> <referenceRange > <observationRange> <text /> </ observationRange> </referenceRange> </observation> </ component> <component> <observation moodCode="EVN" classCode="OBS"> <templateId root="216.840.1.091883.07.02.22.4.2" /> <id nullFlavor="NA" /> <code codeSystem="local" code="URBC" displayName= "RBC, Urine" /> <statusCode code="completed" /> < effectiveTime value="" /> <value unit="/HPF" xsi:type="PQ" value="0" /> <referenceRange> <observationRange> <text>0-2</text> </observationRange> </referenceRange> </observation> </component> <component> <observation moodCode="EVN" classCode="OBS"> <templateId root= "10.29.840.1.488637.10.4.2" /> <id nullFlavor="NA" /> < code codeSystem="local" code="UMUC" displayName="Urine Mucus" /> < statusCode code="completed" /> <effectiveTime value="" /> <value unit="NA" xsi:type="PQ" value="Present" /> < referenceRange> <observationRange> <text /> < /observationRange> </referenceRange> </observation> </ component> <component> <observation moodCode="EVN" classCode="OBS"> <templateId root="216.840.1.348109.10..22.4.2" /> <id nullFlavor="NA" /> <code codeSystem="local" code="UWBC" displayName= "WBC, Urine" /> <statusCode code="completed" /> < effectiveTime value="" /> <value unit="/HPF" xsi:type="PQ" value="0" /> <referenceRange> <observationRange> <text>0-4</text> </observationRange> </referenceRange> </observation> </component> </organizer> </entry> <entry> < organizer moodCode="EVN" classCode="BATTERY"> <templateId root= "16.840.1.871741.10..22.4.1" /> <id nullFlavor="NA" /> <code codeSystem="local" code="UA" displayName="Urinalysis with reflex microscopic" / > <statusCode code="completed" /> <component> <observation moodCode="EVN" classCode="OBS"> <templateId root= "216.840.1.528727.10..22.4.2" /> <id nullFlavor="NA" /> < code codeSystem="local" code="UAPP" displayName="Appearance" /> < statusCode code="completed" /> <effectiveTime value="" /> <value unit="NA" xsi:type="PQ" value="Sl Cloudy" /> < referenceRange> <observationRange> <text /> < /observationRange> </referenceRange> </observation> </ component> <component> <observation moodCode="EVN" classCode="OBS"> <templateId root="2.16.840.1.791703.10.22.4.2" /> <id nullFlavor="NA" /> <code codeSystem="local" code="UBIL" displayName= "Bilirubin" /> <statusCode code="completed" /> <effectiveTime value="" /> <value unit="NA" xsi:type="PQ" value="Negative " /> <referenceRange> <observationRange> <text> Negative</text> </observationRange> </referenceRange> </observation> </component> <component> <observation moodCode ="EVN" classCode="OBS"> <templateId root= "216.840.1.171164.07.02.22.4.2" /> <id nullFlavor="NA" /> < code codeSystem="local" code="UBLD" displayName="Blood" /> <statusCode code="completed" /> <effectiveTime value="" /> < value unit="NA" xsi:type="PQ" value="Negative" /> <referenceRange> <observationRange> <text>Negative</text> </ observationRange> </referenceRange> </observation> </ component> <component> <observation moodCode="EVN" classCode="OBS"> <templateId root="216.840.1.627417.07.02.22.4.2" /> <id nullFlavor="NA" /> <code codeSystem="local" code="UCOLR" displayName= "Color" /> <statusCode code="completed" /> <effectiveTime value="" /> <value unit="NA" xsi:type="PQ" value="Yellow" / > <referenceRange> <observationRange> <text /> </observationRange> </referenceRange> </observation > </component> <component> <observation moodCode="EVN" classCode="OBS"> <templateId root="16.840.1.837308.10..4.2" /> <id nullFlavor="NA" /> <code codeSystem="local" code="UGLU" displayName="Glucose, Urine" /> <statusCode code="completed" /> <effectiveTime value="" /> <value unit="" xsi:type="PQ" value="Negative" /> <referenceRange> <observationRange> <text>Negative</text> </observationRange> </ referenceRange> </observation> </component> <component> <observation moodCode="EVN" classCode="OBS"> <templateId root= "16.840.1.952748.07.02.22.4.2" /> <id nullFlavor="NA" /> < code codeSystem="local" code="UKET" displayName="Ketones" /> < statusCode code="completed" /> <effectiveTime value="" /> <value unit="" xsi:type="PQ" value="Negative" /> < referenceRange> <observationRange> <text>Negative</text > </observationRange> </referenceRange> </observation > </component> <component> <observation moodCode="EVN" classCode="OBS"> <templateId root="16.840.1.462598.10.22.4.2" /> <id nullFlavor="NA" /> <code codeSystem="local" code="ULEU" displayName="Leukocyte Esterase" /> <statusCode code="completed" /> <effectiveTime value="" /> <value unit="NA" xsi:type ="PQ" value="Trace" /> <interpretationCode codeSystem="local" code="*" /> <referenceRange> <observationRange> <text> Negative</text> </observationRange> </referenceRange> </observation> </component> <component> <observation moodCode ="EVN" classCode="OBS"> <templateId root= "10.29.840.1.065287.07.02.22.4.2" /> <id nullFlavor="NA" /> < code codeSystem="local" code="UNIT" displayName="Nitrites" /> < statusCode code="completed" /> <effectiveTime value="" /> <value unit="NA" xsi:type="PQ" value="Negative" /> < referenceRange> <observationRange> <text>Negative</text > </observationRange> </referenceRange> </observation > </component> <component> <observation moodCode="EVN" classCode="OBS"> <templateId root="10.29.840.1.369017.07.02.22.4.2" /> <id nullFlavor="NA" /> <code codeSystem="local" code="UPH" displayName="pH" /> <statusCode code="completed" /> < effectiveTime value="" /> <value unit="NA" xsi:type="PQ" value="6.0" /> <referenceRange> <observationRange> <text>5.0-8.0</text> </observationRange> </ referenceRange> </observation> </component> <component> <observation moodCode="EVN" classCode="OBS"> <templateId root= "10.29.840.1.718780.07.02.22.4.2" /> <id nullFlavor="NA" /> < code codeSystem="local" code="UPRO" displayName="Protein" /> < statusCode code="completed" /> <effectiveTime value="" /> <value unit="NA" xsi:type="PQ" value="Negative" /> < referenceRange> <observationRange> <text>Negative</text > </observationRange> </referenceRange> </observation > </component> <component> <observation moodCode="EVN" classCode="OBS"> <templateId root="16.840.1.272816.10..4.2" /> <id nullFlavor="NA" /> <code codeSystem="local" code="USPG" displayName="Specific [place]" /> <statusCode code="completed" /> <effectiveTime value="" /> <value unit="NA" xsi:type= "PQ" value="1.020" /> <referenceRange> <observationRange> <text>1.003-1.030</text> </observationRange> </ referenceRange> </observation> </component> <component> <observation moodCode="EVN" classCode="OBS"> <templateId root= "10.29.840.1.753267.07.02.22.4.2" /> <id nullFlavor="NA" /> < code codeSystem="local" code="UTYP" displayName="UA Collection type" /> <statusCode code="completed" /> <effectiveTime value="" / > <value unit="NA" xsi:type="PQ" value="Clean Catch" /> < referenceRange> <observationRange> <text /> < /observationRange> </referenceRange> </observation> </ component> <component> <observation moodCode="EVN" classCode="OBS"> <templateId root="16.840.1.560828.07.02.22.4.2" /> <id nullFlavor="NA" /> <code codeSystem="local" code="UURO" displayName= "Urobilinogen" /> <statusCode code="completed" /> < effectiveTime value="" /> <value unit="mg/dL" xsi:type="PQ " value="Negative" /> <referenceRange> <observationRange> <text><1.0</text> </observationRange> </ referenceRange> </observation> </component> </organizer> </entry > <entry> <organizer moodCode="EVN" classCode="BATTERY"> <templateId root="10.29.840.1.707113.10..4.1" /> <id nullFlavor="NA" /> <code codeSystem="local" code="VALP" displayName="Valproic Acid" /> <statusCode code="completed" /> <component> <observation moodCode="EVN" classCode="OBS"> <templateId root="10.29.840.1.544953.10..4.2" /> <id nullFlavor="NA" /> <code codeSystem="local" code="VALP" displayName="Valproic Acid" /> <statusCode code="completed" /> <effectiveTime value="680804854716" /> <value unit="ug/mL" xsi:type= "PQ" value="51" /> <referenceRange> <observationRange> <text>50-125</text> </observationRange> </ referenceRange> </observation> </component> </organizer> </entry > <entry> <organizer moodCode="EVN" classCode="BATTERY"> <templateId root="10.29.840.1.295427.10.4.1" /> <id nullFlavor="NA" /> <code codeSystem="local" code="AMMOV" displayName="Ammonia" /> <statusCode code= "completed" /> <component> <observation moodCode="EVN" classCode= "OBS"> <templateId root="10.29.840.1.878956.07.02.22.4.2" /> < id nullFlavor="NA" /> <code codeSystem="local" code="AMMOV" displayName ="Ammonia" /> <statusCode code="completed" /> <effectiveTime value="787348913100" /> <value unit="umol/L" xsi:type="PQ" value="32" / > <referenceRange> <observationRange> <text>9- 35</text> </observationRange> </referenceRange> </ observation> </component> </organizer> </entry> <entry> <organizer moodCode="EVN" classCode="BATTERY"> <templateId root= "216.840.1.791731.10..4.1" /> <id nullFlavor="NA" /> <code codeSystem="local" code="VALP" displayName="Valproic Acid" /> <statusCode code="completed" /> <component> <observation moodCode="EVN" classCode="OBS"> <templateId root="216.840.1.757294.10..22.4.2" /> <id nullFlavor="NA" /> <code codeSystem="local" code="VALP" displayName="Valproic Acid" /> <statusCode code="completed" /> <effectiveTime value="373131293764" /> <value unit="ug/mL" xsi:type= "PQ" value="71" /> <referenceRange> <observationRange> <text>50-125</text> </observationRange> </ referenceRange> </observation> </component> </organizer> </entry > <entry> <organizer moodCode="EVN" classCode="BATTERY"> <templateId root="216.840.1.396471.10..22.4.1" /> <id nullFlavor="NA" /> <code codeSystem="local" code="B12" displayName="Vitamin B12" /> <statusCode code ="completed" /> <component> <observation moodCode="EVN" classCode= "OBS"> <templateId root="216.840.1.530970.10.22.4.2" /> < id nullFlavor="NA" /> <code codeSystem="local" code="B12" displayName= "Vitamin B12" /> <statusCode code="completed" /> < effectiveTime value="491859479560" /> <value unit="pg/mL" xsi:type="PQ " value="449" /> <referenceRange> <observationRange> <text>213-816</text> </observationRange> </ referenceRange> </observation> </component> </organizer> </entry > <entry> <organizer moodCode="EVN" classCode="BATTERY"> <templateId root="16.840.1.396779.10.22.4.1" /> <id nullFlavor="NA" /> <code codeSystem="local" code="UA" displayName="Urinalysis with reflex microscopic" / > <statusCode code="completed" /> <component> <observation moodCode="EVN" classCode="OBS"> <templateId root= "16.840.1.186759.10..22.4.2" /> <id nullFlavor="NA" /> < code codeSystem="local" code="UAPP" displayName="Appearance" /> < statusCode code="completed" /> <effectiveTime value="025117781305" /> <value unit="NA" xsi:type="PQ" value="Clear" /> < referenceRange> <observationRange> <text /> < /observationRange> </referenceRange> </observation> </ component> <component> <observation moodCode="EVN" classCode="OBS"> <templateId root="216.840.1.259061.10..4.2" /> <id nullFlavor="NA" /> <code codeSystem="local" code="UBIL" displayName= "Bilirubin" /> <statusCode code="completed" /> <effectiveTime value="" /> <value unit="NA" xsi:type="PQ" value="Negative " /> <referenceRange> <observationRange> <text> Negative</text> </observationRange> </referenceRange> </observation> </component> <component> <observation moodCode ="EVN" classCode="OBS"> <templateId root= "216.840.1.261035.07.02.22.4.2" /> <id nullFlavor="NA" /> < code codeSystem="local" code="UBLD" displayName="Blood" /> <statusCode code="completed" /> <effectiveTime value="" /> < value unit="NA" xsi:type="PQ" value="Negative" /> <referenceRange> <observationRange> <text>Negative</text> </ observationRange> </referenceRange> </observation> </ component> <component> <observation moodCode="EVN" classCode="OBS"> <templateId root="16.840.1.603757.10.4.2" /> <id nullFlavor="NA" /> <code codeSystem="local" code="UCOLR" displayName= "Color" /> <statusCode code="completed" /> <effectiveTime value="" /> <value unit="NA" xsi:type="PQ" value="Yellow" / > <referenceRange> <observationRange> <text /> </observationRange> </referenceRange> </observation > </component> <component> <observation moodCode="EVN" classCode="OBS"> <templateId root="16.840.1.449344.10.22.4.2" /> <id nullFlavor="NA" /> <code codeSystem="local" code="UGLU" displayName="Glucose, Urine" /> <statusCode code="completed" /> <effectiveTime value="" /> <value unit="" xsi:type="PQ" value="Negative" /> <referenceRange> <observationRange> <text>Negative</text> </observationRange> </ referenceRange> </observation> </component> <component> <observation moodCode="EVN" classCode="OBS"> <templateId root= "16.840.1.509089.10..4.2" /> <id nullFlavor="NA" /> < code codeSystem="local" code="UKET" displayName="Ketones" /> < statusCode code="completed" /> <effectiveTime value="" /> <value unit="" xsi:type="PQ" value="Trace" /> < interpretationCode codeSystem="local" code="*" /> <referenceRange> <observationRange> <text>Negative</text> </ observationRange> </referenceRange> </observation> </ component> <component> <observation moodCode="EVN" classCode="OBS"> <templateId root="16.840.1.235924.10..4.2" /> <id nullFlavor="NA" /> <code codeSystem="local" code="ULEU" displayName= "Leukocyte Ester[employer]" /> <statusCode code="completed" /> < effectiveTime value="" /> <value unit="NA" xsi:type="PQ" value="Negative" /> <referenceRange> <observationRange> <text>Negative</text> </observationRange> </ referenceRange> </observation> </component> <component> <observation moodCode="EVN" classCode="OBS"> <templateId root= "16.840.1.566853.07.02.22.4.2" /> <id nullFlavor="NA" /> < code codeSystem="local" code="UNIT" displayName="Nitrites" /> < statusCode code="completed" /> <effectiveTime value="" /> <value unit="NA" xsi:type="PQ" value="Negative" /> < referenceRange> <observationRange> <text>Negative</text > </observationRange> </referenceRange> </observation > </component> <component> <observation moodCode="EVN" classCode="OBS"> <templateId root="10.29.840.1.250500.07.02.22.4.2" /> <id nullFlavor="NA" /> <code codeSystem="local" code="UPH" displayName="pH" /> <statusCode code="completed" /> < effectiveTime value="" /> <value unit="NA" xsi:type="PQ" value="6.0" /> <referenceRange> <observationRange> <text>5.0-8.0</text> </observationRange> </ referenceRange> </observation> </component> <component> <observation moodCode="EVN" classCode="OBS"> <templateId root= "10.29.840.1.669406.07.02.22.4.2" /> <id nullFlavor="NA" /> < code codeSystem="local" code="UPRO" displayName="Protein" /> < statusCode code="completed" /> <effectiveTime value="" /> <value unit="NA" xsi:type="PQ" value="Negative" /> < referenceRange> <observationRange> <text>Negative</text > </observationRange> </referenceRange> </observation > </component> <component> <observation moodCode="EVN" classCode="OBS"> <templateId root="216.840.1.309461.10..4.2" /> <id nullFlavor="NA" /> <code codeSystem="local" code="USPG" displayName="Specific [place]" /> <statusCode code="completed" /> <effectiveTime value="[id number]" /> <value unit="NA" xsi:type= "PQ" value="1.030" /> <referenceRange> <observationRange> <text>1.003-1.030</text> </observationRange> </ referenceRange> </observation> </component> <component> <observation moodCode="EVN" classCode="OBS"> <templateId root= "16.840.1.973341.10.4.2" /> <id nullFlavor="NA" /> < code codeSystem="local" code="UTYP" displayName="UA Collection type" /> <statusCode code="completed" /> <effectiveTime value="[id number]" / > <value unit="NA" xsi:type="PQ" value="Clean Catch" /> < referenceRange> <observationRange> <text /> < /observationRange> </referenceRange> </observation> </ component> <component> <observation moodCode="EVN" classCode="OBS"> <templateId root="16.840.1.394839.10.4.2" /> <id nullFlavor="NA" /> <code codeSystem="local" code="UURO" displayName= "Urobilinogen" /> <statusCode code="completed" /> < effectiveTime value="[id number]" /> <value unit="mg/dL" xsi:type="PQ " value="Negative" /> <referenceRange> <observationRange> <text><1.0</text> </observationRange> </ referenceRange> </observation> </component> </organizer> </entry > <entry> <organizer moodCode="EVN" classCode="BATTERY"> <templateId root="16.840.1.308758.10.4.1" /> <id nullFlavor="NA" /> <code codeSystem="local" code="CBCND" displayName="CBC With Platelet No Differential" /> <statusCode code="completed" /> <component> <observation moodCode="EVN" classCode="OBS"> <templateId root= "216.840.1.425302.10..4.2" /> <id nullFlavor="NA" /> < code codeSystem="local" code="HCT" displayName="HCT" /> <statusCode code="completed" /> <effectiveTime value="[id number]" /> < value unit="%" xsi:type="PQ" value="43.4" /> <referenceRange> <observationRange> <text>42.0-52.0</text> </ observationRange> </referenceRange> </observation> </ component> <component> <observation moodCode="EVN" classCode="OBS"> <templateId root="10.29.840.1.808487.10..22.4.2" /> <id nullFlavor="NA" /> <code codeSystem="local" code="HGB" displayName="HGB " /> <statusCode code="completed" /> <effectiveTime value= "[id number]" /> <value unit="g/dL" xsi:type="PQ" value="14.2" /> <referenceRange> <observationRange> <text>14.0- 18.0</text> </observationRange> </referenceRange> </ observation> </component> <component> <observation moodCode= "EVN" classCode="OBS"> <templateId root="216.840.1.195403.10.20.22.4.2 " /> <id nullFlavor="NA" /> <code codeSystem="local" code="MCH " displayName="MCH" /> <statusCode code="completed" /> < effectiveTime value="" /> <value unit="pg" xsi:type="PQ" value="28.3" /> <referenceRange> <observationRange> <text>27.0-32.0</text> </observationRange> </ referenceRange> </observation> </component> <component> <observation moodCode="EVN" classCode="OBS"> <templateId root= "10.29.840.1.702703.10..4.2" /> <id nullFlavor="NA" /> < code codeSystem="local" code="MCHC" displayName="MCHC" /> <statusCode code="completed" /> <effectiveTime value="" /> < value unit="g/dL" xsi:type="PQ" value="32.7" /> <referenceRange> <observationRange> <text>32.0-36.0</text> </ observationRange> </referenceRange> </observation> </ component> <component> <observation moodCode="EVN" classCode="OBS"> <templateId root="10.29.840.1.123128.10.2022.4.2" /> <id nullFlavor="NA" /> <code codeSystem="local" code="MCV" displayName="MCV " /> <statusCode code="completed" /> <effectiveTime value= "" /> <value unit="fL" xsi:type="PQ" value="86.6" /> <referenceRange> <observationRange> <text>82.0-99.0< /text> </observationRange> </referenceRange> </ observation> </component> <component> <observation moodCode= "EVN" classCode="OBS"> <templateId root="10.29.840.1.084218.10.2022.4.2 " /> <id nullFlavor="NA" /> <code codeSystem="local" code="MPV " displayName="MPV" /> <statusCode code="completed" /> < effectiveTime value="" /> <value unit="fL" xsi:type="PQ" value="9.6" /> <referenceRange> <observationRange> <text>9.4-12.3</text> </observationRange> </ referenceRange> </observation> </component> <component> <observation moodCode="EVN" classCode="OBS"> <templateId root= "10.29.840.1.504418.22.4.2" /> <id nullFlavor="NA" /> < code codeSystem="local" code="PLT" displayName="Platelet Count" /> < statusCode code="completed" /> <effectiveTime value="" /> <value unit="K/uL" xsi:type="PQ" value="213" /> < referenceRange> <observationRange> <text>150-400</text> </observationRange> </referenceRange> </observation > </component> <component> <observation moodCode="EVN" classCode="OBS"> <templateId root="10.29.840.1.180041.10.2022.4.2" /> <id nullFlavor="NA" /> <code codeSystem="local" code="RBC" displayName="RBC" /> <statusCode code="completed" /> < effectiveTime value="" /> <value unit="10*6/uL" xsi:type= "PQ" value="5.01" /> <referenceRange> <observationRange> <text>4.60-6.20</text> </observationRange> </ referenceRange> </observation> </component> <component> <observation moodCode="EVN" classCode="OBS"> <templateId root= "2.16.840.1.441671.10.20.22.4.2" /> <id nullFlavor="NA" /> < code codeSystem="local" code="RDW" displayName="RDW" /> <statusCode code="completed" /> <effectiveTime value="" /> < value unit="%" xsi:type="PQ" value="14.2" /> <referenceRange> <observationRange> <text>11.5-14.5</text> </ observationRange> </referenceRange> </observation> </ component> <component> <observation moodCode="EVN" classCode="OBS"> <templateId root="2.16.840.1.776249.10.20.22.4.2" /> <id nullFlavor="NA" /> <code codeSystem="local" code="WBCIR" displayName= "WBC" /> <statusCode code="completed" /> <effectiveTime value= "" /> <value unit="K/uL" xsi:type="PQ" value="7.0" /> <referenceRange> <observationRange> <text>4.8-10.8< /text> </observationRange> </referenceRange> </ observation> </component> </organizer> </entry> <entry> <organizer moodCode="EVN" classCode="BATTERY"> <templateId root= "840.1.998409.07.02.22.4.1" /> <id nullFlavor="NA" /> <code codeSystem="local" code="AMMOV" displayName="Ammonia" /> <statusCode code= "completed" /> <component> <observation moodCode="EVN" classCode= "OBS"> <templateId root="840.1.717164.07.02.22.4.2" /> < id nullFlavor="NA" /> <code codeSystem="local" code="AMMOV" displayName ="Ammonia" /> <statusCode code="completed" /> <effectiveTime value="[id number]" /> <value unit="umol/L" xsi:type="PQ" value="12" / > <referenceRange> <observationRange> <text>9- 35</text> </observationRange> </referenceRange> </ observation> </component> </organizer> </entry> <entry> <organizer moodCode="EVN" classCode="BATTERY"> <templateId root= "840.1.974776.07.02.22.4.1" /> <id nullFlavor="NA" /> <code codeSystem="local" code="CMP" displayName="Comprehensive Metabolic Panel (CMP)" /> <statusCode code="completed" /> <component> <observation moodCode="EVN" classCode="OBS"> <templateId root= "840.1.676084.07.02.22.4.2" /> <id nullFlavor="NA" /> < code codeSystem="local" code="ALB" displayName="Albumin" /> < statusCode code="completed" /> <effectiveTime value="" /> <value unit="g/dL" xsi:type="PQ" value="3.2" /> < interpretationCode codeSystem="local" code="*" /> <referenceRange> <observationRange> <text>3.5-4.8</text> </ observationRange> </referenceRange> </observation> </ component> <component> <observation moodCode="EVN" classCode="OBS"> <templateId root="10.29.840.1.407557.10.22.4.2" /> <id nullFlavor="NA" /> <code codeSystem="local" code="ALP" displayName= "Alkaline Phosphatase" /> <statusCode code="completed" /> < effectiveTime value="" /> <value unit="U/L" xsi:type="PQ" value="54" /> <referenceRange> <observationRange> <text>26-104</text> </observationRange> </referenceRange > </observation> </component> <component> <observation moodCode="EVN" classCode="OBS"> <templateId root= "840.1.941041.1022.4.2" /> <id nullFlavor="NA" /> < code codeSystem="local" code="ALT" displayName="ALT (SGPT)" /> < statusCode code="completed" /> <effectiveTime value="" /> <value unit="U/L" xsi:type="PQ" value="20" /> <referenceRange > <observationRange> <text>17-63</text> </ observationRange> </referenceRange> </observation> </ component> <component> <observation moodCode="EVN" classCode="OBS"> <templateId root="10.29.840.1.261331.10.2022.4.2" /> <id nullFlavor="NA" /> <code codeSystem="local" code="AGAP" displayName= "Anion Gap" /> <statusCode code="completed" /> <effectiveTime value="" /> <value unit="mEq/L" xsi:type="PQ" value="8" /> <referenceRange> <observationRange> <text>3-20 </text> </observationRange> </referenceRange> </ observation> </component> <component> <observation moodCode= "EVN" classCode="OBS"> <templateId root="10.29.840.1.469446.10...4.2 " /> <id nullFlavor="NA" /> <code codeSystem="local" code="AST " displayName="AST (SGOT)" /> <statusCode code="completed" /> <effectiveTime value="" /> <value unit="U/L" xsi:type="PQ" value="18" /> <referenceRange> <observationRange> <text>15-41</text> </observationRange> </referenceRange > </observation> </component> <component> <observation moodCode="EVN" classCode="OBS"> <templateId root= "10.29.840.1.935531.10...4.2" /> <id nullFlavor="NA" /> < code codeSystem="local" code="BILIT" displayName="Bilirubin Total" /> < statusCode code="completed" /> <effectiveTime value="" /> <value unit="mg/dL" xsi:type="PQ" value="0.3" /> < referenceRange> <observationRange> <text>0.2-1.2</text> </observationRange> </referenceRange> </observation > </component> <component> <observation moodCode="EVN" classCode="OBS"> <templateId root="10.29.840.1.857168.07.02.22.4.2" /> <id nullFlavor="NA" /> <code codeSystem="local" code="BUN" displayName="BUN" /> <statusCode code="completed" /> < effectiveTime value="" /> <value unit="mg/dL" xsi:type="PQ " value="27" /> <interpretationCode codeSystem="local" code="*" /> <referenceRange> <observationRange> <text>4-20</ text> </observationRange> </referenceRange> </ observation> </component> <component> <observation moodCode= "EVN" classCode="OBS"> <templateId root="2.16.840.1.400577.07.02.224.2 " /> <id nullFlavor="NA" /> <code codeSystem="local" code="CA " displayName="Calcium" /> <statusCode code="completed" /> < effectiveTime value="" /> <value unit="mg/dL" xsi:type="PQ " value="9.5" /> <referenceRange> <observationRange> <text>8.6-10.0</text> </observationRange> </ referenceRange> </observation> </component> <component> <observation moodCode="EVN" classCode="OBS"> <templateId root= "216.840.1.421124.07.02.22.4.2" /> <id nullFlavor="NA" /> < code codeSystem="local" code="CL" displayName="Chloride" /> < statusCode code="completed" /> <effectiveTime value="" /> <value unit="mEq/L" xsi:type="PQ" value="104" /> < referenceRange> <observationRange> <text>99-109</text> </observationRange> </referenceRange> </observation> </component> <component> <observation moodCode="EVN" classCode ="OBS"> <templateId root="16.840.1.875774.10.22.4.2" /> < id nullFlavor="NA" /> <code codeSystem="local" code="CO2" displayName= "CO2" /> <statusCode code="completed" /> <effectiveTime value= "" /> <value unit="mEq/L" xsi:type="PQ" value="28" /> <referenceRange> <observationRange> <text>22-32</ text> </observationRange> </referenceRange> </ observation> </component> <component> <observation moodCode= "EVN" classCode="OBS"> <templateId root="16.840.1.317627.10.22.4.2 " /> <id nullFlavor="NA" /> <code codeSystem="local" code= "CREAT" displayName="Creatinine" /> <statusCode code="completed" /> <effectiveTime value="" /> <value unit="mg/dL" xsi: type="PQ" value="1.02" /> <referenceRange> <observationRange > <text>0.64-1.27</text> </observationRange> </ referenceRange> </observation> </component> <component> <observation moodCode="EVN" classCode="OBS"> <templateId root= "10.29.840.1.540839.10.2022.4.2" /> <id nullFlavor="NA" /> < code codeSystem="local" code="GLOB" displayName="Globulin" /> < statusCode code="completed" /> <effectiveTime value="" /> <value unit="g/dL" xsi:type="PQ" value="3.4" /> < referenceRange> <observationRange> <text>1.9-4.3</text> </observationRange> </referenceRange> </observation > </component> <component> <observation moodCode="EVN" classCode="OBS"> <templateId root="10.29.840.1.623372.1022.4.2" /> <id nullFlavor="NA" /> <code codeSystem="local" code="GLU" displayName="Glucose" /> <statusCode code="completed" /> < effectiveTime value="" /> <value unit="mg/dL" xsi:type="PQ " value="105" /> <interpretationCode codeSystem="local" code="*" /> <referenceRange> <observationRange> <text>70-100< /text> </observationRange> </referenceRange> </ observation> </component> <component> <observation moodCode= "EVN" classCode="OBS"> <templateId root="10.29.840.1.889165.07.02.22.4.2 " /> <id nullFlavor="NA" /> <code codeSystem="local" code="K" displayName="Potassium" /> <statusCode code="completed" /> < effectiveTime value="" /> <value unit="mEq/L" xsi:type="PQ " value="3.9" /> <referenceRange> <observationRange> <text>3.6-5.1</text> </observationRange> </ referenceRange> </observation> </component> <component> <observation moodCode="EVN" classCode="OBS"> <templateId root= "10.29.840.1.262742.22.4.2" /> <id nullFlavor="NA" /> < code codeSystem="local" code="TP" displayName="Protein" /> <statusCode code="completed" /> <effectiveTime value="" /> < value unit="g/dL" xsi:type="PQ" value="6.6" /> <referenceRange> <observationRange> <text>6.1-7.9</text> </ observationRange> </referenceRange> </observation> </ component> <component> <observation moodCode="EVN" classCode="OBS"> <templateId root="16.840.1.233037.22.4.2" /> <id nullFlavor="NA" /> <code codeSystem="local" code="NA" displayName= "Sodium" /> <statusCode code="completed" /> <effectiveTime value="" /> <value unit="mEq/L" xsi:type="PQ" value="140" / > <referenceRange> <observationRange> <text>136 -144</text> </observationRange> </referenceRange> </ observation> </component> </organizer> </entry> <entry> <organizer moodCode="EVN" classCode="BATTERY"> <templateId root= "16.840.1.839033.22.4.1" /> <id nullFlavor="NA" /> <code codeSystem="local" code="GFR" displayName="eGFR" /> <statusCode code= "completed" /> <component> <observation moodCode="EVN" classCode= "OBS"> <templateId root="16.840.1.501546.22.4.2" /> < id nullFlavor="NA" /> <code codeSystem="local" code="GFR" displayName= "eGFR" /> <statusCode code="completed" /> <effectiveTime value ="" /> <value unit="mL/min" xsi:type="PQ" value=">60" / > <referenceRange> <observationRange> <text>&gt ;60</text> </observationRange> </referenceRange> </ observation> </component> </organizer> </entry> <entry> <organizer moodCode="EVN" classCode="BATTERY"> <templateId root= "216.840.1.613125.10.22.4.1" /> <id nullFlavor="NA" /> <code codeSystem="local" code="CBCND" displayName="CBC With Platelet No Differential" /> <statusCode code="completed" /> <component> <observation moodCode="EVN" classCode="OBS"> <templateId root= "2.16.840.1.062479...4.2" /> <id nullFlavor="NA" /> < code codeSystem="local" code="HCT" displayName="HCT" /> <statusCode code="completed" /> <effectiveTime value="" /> < value unit="%" xsi:type="PQ" value="42.5" /> <referenceRange> <observationRange> <text>42.0-52.0</text> </ observationRange> </referenceRange> </observation> </ component> <component> <observation moodCode="EVN" classCode="OBS"> <templateId root="216.840.1.241410...4.2" /> <id nullFlavor="NA" /> <code codeSystem="local" code="HGB" displayName="HGB " /> <statusCode code="completed" /> <effectiveTime value= "" /> <value unit="g/dL" xsi:type="PQ" value="13.8" /> <interpretationCode codeSystem="local" code="*" /> < referenceRange> <observationRange> <text>14.0-18.0</text > </observationRange> </referenceRange> </observation > </component> <component> <observation moodCode="EVN" classCode="OBS"> <templateId root="216.840.1.816637.10.2022.4.2" /> <id nullFlavor="NA" /> <code codeSystem="local" code="MCH" displayName="MCH" /> <statusCode code="completed" /> < effectiveTime value="" /> <value unit="pg" xsi:type="PQ" value="28.3" /> <referenceRange> <observationRange> <text>27.0-32.0</text> </observationRange> </ referenceRange> </observation> </component> <component> <observation moodCode="EVN" classCode="OBS"> <templateId root= "10.29.840.1.145091.10.4.2" /> <id nullFlavor="NA" /> < code codeSystem="local" code="MCHC" displayName="MCHC" /> <statusCode code="completed" /> <effectiveTime value="" /> < value unit="g/dL" xsi:type="PQ" value="32.5" /> <referenceRange> <observationRange> <text>32.0-36.0</text> </ observationRange> </referenceRange> </observation> </ component> <component> <observation moodCode="EVN" classCode="OBS"> <templateId root="16.840.1.065984.10.2022.4.2" /> <id nullFlavor="NA" /> <code codeSystem="local" code="MCV" displayName="MCV " /> <statusCode code="completed" /> <effectiveTime value= "" /> <value unit="fL" xsi:type="PQ" value="87.1" /> <referenceRange> <observationRange> <text>82.0-99.0< /text> </observationRange> </referenceRange> </ observation> </component> <component> <observation moodCode= "EVN" classCode="OBS"> <templateId root="10.29.840.1.126102.10.20.22.4.2 " /> <id nullFlavor="NA" /> <code codeSystem="local" code="MPV " displayName="MPV" /> <statusCode code="completed" /> < effectiveTime value="576523536801" /> <value unit="fL" xsi:type="PQ" value="9.6" /> <referenceRange> <observationRange> <text>9.4-12.3</text> </observationRange> </ referenceRange> </observation> </component> <component> <observation moodCode="EVN" classCode="OBS"> <templateId root= "840.1.050150.10...4.2" /> <id nullFlavor="NA" /> < code codeSystem="local" code="PLT" displayName="Platelet Count" /> < statusCode code="completed" /> <effectiveTime value="559588545373" /> <value unit="K/uL" xsi:type="PQ" value="147" /> < interpretationCode codeSystem="local" code="*" /> <referenceRange> <observationRange> <text>150-400</text> </ observationRange> </referenceRange> </observation> </ component> <component> <observation moodCode="EVN" classCode="OBS"> <templateId root="10.29.840.1.788240.10.20.22.4.2" /> <id nullFlavor="NA" /> <code codeSystem="local" code="RBC" displayName="RBC " /> <statusCode code="completed" /> <effectiveTime value= "790662525277" /> <value unit="10*6/uL" xsi:type="PQ" value="4.88" /> <referenceRange> <observationRange> <text>4.60- 6.20</text> </observationRange> </referenceRange> </ observation> </component> <component> <observation moodCode= "EVN" classCode="OBS"> <templateId root="216.840.1.010553.10.20.22.4.2 " /> <id nullFlavor="NA" /> <code codeSystem="local" code="RDW " displayName="RDW" /> <statusCode code="completed" /> < effectiveTime value="556284331095" /> <value unit="%" xsi:type="PQ " value="14.3" /> <referenceRange> <observationRange> <text>11.5-14.5</text> </observationRange> </ referenceRange> </observation> </component> <component> <observation moodCode="EVN" classCode="OBS"> <templateId root= "216.840.1.170270.10.20.22.4.2" /> <id nullFlavor="NA" /> < code codeSystem="local" code="WBCIR" displayName="WBC" /> <statusCode code="completed" /> <effectiveTime value="015630513421" /> < value unit="K/uL" xsi:type="PQ" value="8.5" /> <referenceRange> <observationRange> <text>4.8-10.8</text> </ observationRange> </referenceRange> </observation> </ component> </organizer> </entry> <entry> <organizer moodCode="EVN" classCode="BATTERY"> <templateId root="10.29.840.1.523630.10..4.1" /> <id nullFlavor="NA" /> <code codeSystem="local" code="BMP" displayName ="Basic Metabolic Panel (BMP)" /> <statusCode code="completed" /> < component> <observation moodCode="EVN" classCode="OBS"> < templateId root="840.1.004886.07.02.22.4.2" /> <id nullFlavor="NA " /> <code codeSystem="local" code="AGAP" displayName="Anion Gap" /> <statusCode code="completed" /> <effectiveTime value= "" /> <value unit="mEq/L" xsi:type="PQ" value="6" /> <referenceRange> <observationRange> <text>3-20</text > </observationRange> </referenceRange> </observation > </component> <component> <observation moodCode="EVN" classCode="OBS"> <templateId root="840.1.553226.07.02.22.4.2" /> <id nullFlavor="NA" /> <code codeSystem="local" code="BUN" displayName="BUN" /> <statusCode code="completed" /> < effectiveTime value="" /> <value unit="mg/dL" xsi:type="PQ " value="25" /> <interpretationCode codeSystem="local" code="*" /> <referenceRange> <observationRange> <text>4-20</ text> </observationRange> </referenceRange> </ observation> </component> <component> <observation moodCode= "EVN" classCode="OBS"> <templateId root="10.29.840.1.941534.07.02.22.4.2 " /> <id nullFlavor="NA" /> <code codeSystem="local" code="CA " displayName="Calcium" /> <statusCode code="completed" /> < effectiveTime value="" /> <value unit="mg/dL" xsi:type="PQ " value="9.3" /> <referenceRange> <observationRange> <text>8.6-10.0</text> </observationRange> </ referenceRange> </observation> </component> <component> <observation moodCode="EVN" classCode="OBS"> <templateId root= "216.840.1.891953.10..22.4.2" /> <id nullFlavor="NA" /> < code codeSystem="local" code="CL" displayName="Chloride" /> < statusCode code="completed" /> <effectiveTime value="" /> <value unit="mEq/L" xsi:type="PQ" value="101" /> < referenceRange> <observationRange> <text>99-109</text> </observationRange> </referenceRange> </observation> </component> <component> <observation moodCode="EVN" classCode ="OBS"> <templateId root="16.840.1.445629.10..22.4.2" /> < id nullFlavor="NA" /> <code codeSystem="local" code="CO2" displayName= "CO2" /> <statusCode code="completed" /> <effectiveTime value= "012688465748" /> <value unit="mEq/L" xsi:type="PQ" value="29" /> <referenceRange> <observationRange> <text>22-32</ text> </observationRange> </referenceRange> </ observation> </component> <component> <observation moodCode= "EVN" classCode="OBS"> <templateId root="2.16.840.1.499775.10.22.4.2 " /> <id nullFlavor="NA" /> <code codeSystem="local" code= "CREAT" displayName="Creatinine" /> <statusCode code="completed" /> <effectiveTime value="385554335049" /> <value unit="mg/dL" xsi: type="PQ" value="0.99" /> <referenceRange> <observationRange > <text>0.64-1.27</text> </observationRange> </ referenceRange> </observation> </component> <component> <observation moodCode="EVN" classCode="OBS"> <templateId root= "16.840.1.191071.07.02.22.4.2" /> <id nullFlavor="NA" /> < code codeSystem="local" code="GLU" displayName="Glucose" /> < statusCode code="completed" /> <effectiveTime value="" /> <value unit="mg/dL" xsi:type="PQ" value="91" /> < referenceRange> <observationRange> <text>70-100</text> </observationRange> </referenceRange> </observation> </component> <component> <observation moodCode="EVN" classCode ="OBS"> <templateId root="16.840.1.867248.1022.4.2" /> < id nullFlavor="NA" /> <code codeSystem="local" code="K" displayName= "Potassium" /> <statusCode code="completed" /> <effectiveTime value="" /> <value unit="mEq/L" xsi:type="PQ" value="3.7" / > <referenceRange> <observationRange> <text>3.6 -5.1</text> </observationRange> </referenceRange> </ observation> </component> <component> <observation moodCode= "EVN" classCode="OBS"> <templateId root="2.16.840.1.648647.10..22.4.2 " /> <id nullFlavor="NA" /> <code codeSystem="local" code="NA " displayName="Sodium" /> <statusCode code="completed" /> < effectiveTime value="" /> <value unit="mEq/L" xsi:type="PQ " value="136" /> <referenceRange> <observationRange> <text>136-144</text> </observationRange> </ referenceRange> </observation> </component> </organizer> </entry > <entry> <organizer moodCode="EVN" classCode="BATTERY"> <templateId root="2.16.840.1.734676.10..22.4.1" /> <id nullFlavor="NA" /> <code codeSystem="local" code="VALP" displayName="Valproic Acid" /> <statusCode code="completed" /> <component> <observation moodCode="EVN" classCode="OBS"> <templateId root="2.16.840.1.146253.10.20.22.4.2" /> <id nullFlavor="NA" /> <code codeSystem="local" code="VALP" displayName="Valproic Acid" /> <statusCode code="completed" /> <effectiveTime value="261974584427" /> <value unit="ug/mL" xsi:type= "PQ" value="45" /> <interpretationCode codeSystem="local" code="*" /> <referenceRange> <observationRange> <text>50- 125</text> </observationRange> </referenceRange> </ observation> </component> </organizer> </entry> <entry> <organizer moodCode="EVN" classCode="BATTERY"> <templateId root= "10.29.840.1.807495.10..4.1" /> <id nullFlavor="NA" /> <code codeSystem="local" code="GFR" displayName="eGFR" /> <statusCode code= "completed" /> <component> <observation moodCode="EVN" classCode= "OBS"> <templateId root="840.1.207351.07.02.22.4.2" /> < id nullFlavor="NA" /> <code codeSystem="local" code="GFR" displayName= "eGFR" /> <statusCode code="completed" /> <effectiveTime value ="407041609319" /> <value unit="mL/min" xsi:type="PQ" value=">60" / > <referenceRange> <observationRange> <text>&gt ;60</text> </observationRange> </referenceRange> </ observation> </component> </organizer> </entry> <entry> <organizer moodCode="EVN" classCode="BATTERY"> <templateId root= "840.1.548251.07.02.22.4.1" /> <id nullFlavor="NA" /> <code codeSystem="local" code="VALP" displayName="Valproic Acid" /> <statusCode code="completed" /> <component> <observation moodCode="EVN" classCode="OBS"> <templateId root="10.29.840.1.882715.07.02.22.4.2" /> <id nullFlavor="NA" /> <code codeSystem="local" code="VALP" displayName="Valproic Acid" /> <statusCode code="completed" /> <effectiveTime value="334421814903" /> <value unit="ug/mL" xsi:type= "PQ" value="39" /> <interpretationCode codeSystem="local" code="*" /> <referenceRange> <observationRange> <text>50- 125</text> </observationRange> </referenceRange> </ observation> </component> </organizer> </entry> <entry> <organizer moodCode="EVN" classCode="BATTERY"> <templateId root= "216.840.1.498211.10..22.4.1" /> <id nullFlavor="NA" /> <code codeSystem="local" code="VALP" displayName="Valproic Acid" /> <statusCode code="completed" /> <component> <observation moodCode="EVN" classCode="OBS"> <templateId root="216.840.1.571153.10..22.4.2" /> <id nullFlavor="NA" /> <code codeSystem="local" code="VALP" displayName="Valproic Acid" /> <statusCode code="completed" /> <effectiveTime value="512897615099" /> <value unit="ug/mL" xsi:type= "PQ" value="21" /> <interpretationCode codeSystem="local" code="*" /> <referenceRange> <observationRange> <text>50- 125</text> </observationRange> </referenceRange> </ observation> </component> </organizer> </entry> <entry> <organizer moodCode="EVN" classCode="BATTERY"> <templateId root= "16.840.1.767329.10..22.4.1" /> <id nullFlavor="NA" /> <code codeSystem="local" code="GLUN" displayName="Glucose NPT" /> <statusCode code="completed" /> <component> <observation moodCode="EVN" classCode="OBS"> <templateId root="216.840.1.575821.10.20.22.4.2" /> <id nullFlavor="NA" /> <code codeSystem="local" code="GLUN" displayName="Glucose NPT" /> <statusCode code="completed" /> <effectiveTime value="424344411296" /> <value unit="mg/dL" xsi:type="PQ " value="106" /> <interpretationCode codeSystem="local" code="*" /> <referenceRange> <observationRange> <text>70-100< /text> </observationRange> </referenceRange> </ observation> </component> </organizer> </entry> <entry> <organizer moodCode="EVN" classCode="BATTERY"> <templateId root= "216.840.1.678092.10..22.4.1" /> <id nullFlavor="NA" /> <code codeSystem="local" code="CBCND" displayName="CBC With Platelet No Differential" /> <statusCode code="completed" /> <component> <observation moodCode="EVN" classCode="OBS"> <templateId root= "2.16.840.1.428851.10..22.4.2" /> <id nullFlavor="NA" /> < code codeSystem="local" code="HCT" displayName="HCT" /> <statusCode code="completed" /> <effectiveTime value="139548547084" /> < value unit="%" xsi:type="PQ" value="39.0" /> <interpretationCode codeSystem="local" code="*" /> <referenceRange> < observationRange> <text>42.0-52.0</text> </ observationRange> </referenceRange> </observation> </ component> <component> <observation moodCode="EVN" classCode="OBS"> <templateId root="216.840.1.136411.10..22.4.2" /> <id nullFlavor="NA" /> <code codeSystem="local" code="HGB" displayName="HGB " /> <statusCode code="completed" /> <effectiveTime value= "" /> <value unit="g/dL" xsi:type="PQ" value="12.6" /> <interpretationCode codeSystem="local" code="*" /> < referenceRange> <observationRange> <text>14.0-18.0</text > </observationRange> </referenceRange> </observation > </component> <component> <observation moodCode="EVN" classCode="OBS"> <templateId root="16.840.1.073193.07.02.22.4.2" /> <id nullFlavor="NA" /> <code codeSystem="local" code="MCH" displayName="MCH" /> <statusCode code="completed" /> < effectiveTime value="" /> <value unit="pg" xsi:type="PQ" value="29.0" /> <referenceRange> <observationRange> <text>27.0-32.0</text> </observationRange> </ referenceRange> </observation> </component> <component> <observation moodCode="EVN" classCode="OBS"> <templateId root= "10.29.840.1.082394.10.20.22.4.2" /> <id nullFlavor="NA" /> < code codeSystem="local" code="MCHC" displayName="MCHC" /> <statusCode code="completed" /> <effectiveTime value="" /> < value unit="g/dL" xsi:type="PQ" value="32.3" /> <referenceRange> <observationRange> <text>32.0-36.0</text> </ observationRange> </referenceRange> </observation> </ component> <component> <observation moodCode="EVN" classCode="OBS"> <templateId root="10.29.840.1.898076.10.20.22.4.2" /> <id nullFlavor="NA" /> <code codeSystem="local" code="MCV" displayName="MCV " /> <statusCode code="completed" /> <effectiveTime value= "" /> <value unit="fL" xsi:type="PQ" value="89.9" /> <referenceRange> <observationRange> <text>82.0-99.0< /text> </observationRange> </referenceRange> </ observation> </component> <component> <observation moodCode= "EVN" classCode="OBS"> <templateId root="840.1.892778.1022.4.2 " /> <id nullFlavor="NA" /> <code codeSystem="local" code="MPV " displayName="MPV" /> <statusCode code="completed" /> < effectiveTime value="693186072997" /> <value unit="fL" xsi:type="PQ" value="10.6" /> <referenceRange> <observationRange> <text>9.4-12.3</text> </observationRange> </ referenceRange> </observation> </component> <component> <observation moodCode="EVN" classCode="OBS"> <templateId root= "10.29.840.1.945016.102022.4.2" /> <id nullFlavor="NA" /> < code codeSystem="local" code="PLT" displayName="Platelet Count" /> < statusCode code="completed" /> <effectiveTime value="133474517033" /> <value unit="K/uL" xsi:type="PQ" value="165" /> < referenceRange> <observationRange> <text>150-400</text> </observationRange> </referenceRange> </observation > </component> <component> <observation moodCode="EVN" classCode="OBS"> <templateId root="216.840.1.589316.10.20.22.4.2" /> <id nullFlavor="NA" /> <code codeSystem="local" code="RBC" displayName="RBC" /> <statusCode code="completed" /> < effectiveTime value="526191348995" /> <value unit="10*6/uL" xsi:type= "PQ" value="4.34" /> <interpretationCode codeSystem="local" code="*" / > <referenceRange> <observationRange> <text> 4.60-6.20</text> </observationRange> </referenceRange> </observation> </component> <component> <observation moodCode="EVN" classCode="OBS"> <templateId root= "216.840.1.707107.10.20.22.4.2" /> <id nullFlavor="NA" /> < code codeSystem="local" code="RDW" displayName="RDW" /> <statusCode code="completed" /> <effectiveTime value="369934362263" /> < value unit="%" xsi:type="PQ" value="16.3" /> <interpretationCode codeSystem="local" code="*" /> <referenceRange> < observationRange> <text>11.5-14.5</text> </ observationRange> </referenceRange> </observation> </ component> <component> <observation moodCode="EVN" classCode="OBS"> <templateId root="16.840.1.819804.10..22.4.2" /> <id nullFlavor="NA" /> <code codeSystem="local" code="WBCIR" displayName= "WBC" /> <statusCode code="completed" /> <effectiveTime value= "884144538877" /> <value unit="K/uL" xsi:type="PQ" value="7.3" /> <referenceRange> <observationRange> <text>4.8-10.8< /text> </observationRange> </referenceRange> </ observation> </component> </organizer> </entry> <entry> <organizer moodCode="EVN" classCode="BATTERY"> <templateId root= "16.840.1.677755.10..22.4.1" /> <id nullFlavor="NA" /> <code codeSystem="local" code="RENAL" displayName="Renal Function Panel" /> < statusCode code="completed" /> <component> <observation moodCode= "EVN" classCode="OBS"> <templateId root="216.840.1.554509.10..22.4.2 " /> <id nullFlavor="NA" /> <code codeSystem="local" code="ALB " displayName="Albumin" /> <statusCode code="completed" /> < effectiveTime value="853165784654" /> <value unit="g/dL" xsi:type="PQ" value="3.1" /> <interpretationCode codeSystem="local" code="*" /> <referenceRange> <observationRange> <text>3.5-4.8</ text> </observationRange> </referenceRange> </ observation> </component> <component> <observation moodCode= "EVN" classCode="OBS"> <templateId root="216.840.1.521103.07.02.22.4.2 " /> <id nullFlavor="NA" /> <code codeSystem="local" code= "AGAP" displayName="Anion Gap" /> <statusCode code="completed" /> <effectiveTime value="092051088992" /> <value unit="mEq/L" xsi: type="PQ" value="5" /> <referenceRange> <observationRange> <text>3-20</text> </observationRange> </ referenceRange> </observation> </component> <component> <observation moodCode="EVN" classCode="OBS"> <templateId root= "216.840.1.702455.07.02.22.4.2" /> <id nullFlavor="NA" /> < code codeSystem="local" code="BUN" displayName="BUN" /> <statusCode code="completed" /> <effectiveTime value="102922027907" /> < value unit="mg/dL" xsi:type="PQ" value="26" /> <interpretationCode codeSystem="local" code="*" /> <referenceRange> < observationRange> <text>4-20</text> </observationRange> </referenceRange> </observation> </component> < component> <observation moodCode="EVN" classCode="OBS"> < templateId root="16.840.1.147905.07.02.22.4.2" /> <id nullFlavor="NA " /> <code codeSystem="local" code="CA" displayName="Calcium" /> <statusCode code="completed" /> <effectiveTime value="815295577390 " /> <value unit="mg/dL" xsi:type="PQ" value="8.9" /> < referenceRange> <observationRange> <text>8.6-10.0</text > </observationRange> </referenceRange> </observation > </component> <component> <observation moodCode="EVN" classCode="OBS"> <templateId root="216.840.1.977285.10..4.2" /> <id nullFlavor="NA" /> <code codeSystem="local" code="CL" displayName="Chloride" /> <statusCode code="completed" /> < effectiveTime value="626214531255" /> <value unit="mEq/L" xsi:type="PQ " value="104" /> <referenceRange> <observationRange> <text>99-109</text> </observationRange> </ referenceRange> </observation> </component> <component> <observation moodCode="EVN" classCode="OBS"> <templateId root= "216.840.1.476828.10..4.2" /> <id nullFlavor="NA" /> < code codeSystem="local" code="CO2" displayName="CO2" /> <statusCode code="completed" /> <effectiveTime value="777981349058" /> < value unit="mEq/L" xsi:type="PQ" value="28" /> <referenceRange> <observationRange> <text>22-32</text> </ observationRange> </referenceRange> </observation> </ component> <component> <observation moodCode="EVN" classCode="OBS"> <templateId root="16.840.1.871745.10..22.4.2" /> <id nullFlavor="NA" /> <code codeSystem="local" code="CREAT" displayName= "Creatinine" /> <statusCode code="completed" /> < effectiveTime value="949495816750" /> <value unit="mg/dL" xsi:type="PQ " value="1.12" /> <referenceRange> <observationRange> <text>0.64-1.27</text> </observationRange> </ referenceRange> </observation> </component> <component> <observation moodCode="EVN" classCode="OBS"> <templateId root= "16.840.1.590827.10.2022.4.2" /> <id nullFlavor="NA" /> < code codeSystem="local" code="GLU" displayName="Glucose" /> < statusCode code="completed" /> <effectiveTime value="" /> <value unit="mg/dL" xsi:type="PQ" value="89" /> < referenceRange> <observationRange> <text>70-100</text> </observationRange> </referenceRange> </observation> </component> <component> <observation moodCode="EVN" classCode ="OBS"> <templateId root="10.29.840.1.529022.07.02.22.4.2" /> < id nullFlavor="NA" /> <code codeSystem="local" code="PHOS" displayName= "Phosphorus" /> <statusCode code="completed" /> < effectiveTime value="" /> <value unit="mg/dL" xsi:type="PQ " value="3.2" /> <referenceRange> <observationRange> <text>2.4-4.7</text> </observationRange> </ referenceRange> </observation> </component> <component> <observation moodCode="EVN" classCode="OBS"> <templateId root= "10.29.840.1.782160.1022.4.2" /> <id nullFlavor="NA" /> < code codeSystem="local" code="K" displayName="Potassium" /> < statusCode code="completed" /> <effectiveTime value="097365516418" /> <value unit="mEq/L" xsi:type="PQ" value="4.4" /> < referenceRange> <observationRange> <text>3.6-5.1</text> </observationRange> </referenceRange> </observation > </component> <component> <observation moodCode="EVN" classCode="OBS"> <templateId root="16.840.1.244419.07.02.22.4.2" /> <id nullFlavor="NA" /> <code codeSystem="local" code="NA" displayName="Sodium" /> <statusCode code="completed" /> < effectiveTime value="784214386424" /> <value unit="mEq/L" xsi:type="PQ " value="137" /> <referenceRange> <observationRange> <text>136-144</text> </observationRange> </ referenceRange> </observation> </component> </organizer> </entry > <entry> <organizer moodCode="EVN" classCode="BATTERY"> <templateId root="16.840.1.737211.07.02.22.4.1" /> <id nullFlavor="NA" /> <code codeSystem="local" code="GFR" displayName="eGFR" /> <statusCode code= "completed" /> <component> <observation moodCode="EVN" classCode= "OBS"> <templateId root="16.840.1.836341.22.4.2" /> < id nullFlavor="NA" /> <code codeSystem="local" code="GFR" displayName= "eGFR" /> <statusCode code="completed" /> <effectiveTime value ="813469889034" /> <value unit="mL/min" xsi:type="PQ" value=">60" / > <referenceRange> <observationRange> <text>&gt ;60</text> </observationRange> </referenceRange> </ observation> </component> </organizer> </entry> <entry> <organizer moodCode="EVN" classCode="BATTERY"> <templateId root= "2.16.840.1.962050.10..22.4.1" /> <id nullFlavor="NA" /> <code codeSystem="local" code="CBCND" displayName="CBC With Platelet No Differential" /> <statusCode code="completed" /> <component> <observation moodCode="EVN" classCode="OBS"> <templateId root= "2.16.840.1.064140.10..4.2" /> <id nullFlavor="NA" /> < code codeSystem="local" code="HCT" displayName="HCT" /> <statusCode code="completed" /> <effectiveTime value="" /> < value unit="%" xsi:type="PQ" value="43.7" /> <referenceRange> <observationRange> <text>42.0-52.0</text> </ observationRange> </referenceRange> </observation> </ component> <component> <observation moodCode="EVN" classCode="OBS"> <templateId root="216.840.1.846575.10..4.2" /> <id nullFlavor="NA" /> <code codeSystem="local" code="HGB" displayName="HGB " /> <statusCode code="completed" /> <effectiveTime value= "" /> <value unit="g/dL" xsi:type="PQ" value="14.5" /> <referenceRange> <observationRange> <text>14.0- 18.0</text> </observationRange> </referenceRange> </ observation> </component> <component> <observation moodCode= "EVN" classCode="OBS"> <templateId root="16.840.1.118048.10..22.4.2 " /> <id nullFlavor="NA" /> <code codeSystem="local" code="MCH " displayName="MCH" /> <statusCode code="completed" /> < effectiveTime value="" /> <value unit="pg" xsi:type="PQ" value="30.3" /> <referenceRange> <observationRange> <text>27.0-32.0</text> </observationRange> </ referenceRange> </observation> </component> <component> <observation moodCode="EVN" classCode="OBS"> <templateId root= "16.840.1.650997...4.2" /> <id nullFlavor="NA" /> < code codeSystem="local" code="MCHC" displayName="MCHC" /> <statusCode code="completed" /> <effectiveTime value="" /> < value unit="g/dL" xsi:type="PQ" value="33.2" /> <referenceRange> <observationRange> <text>32.0-36.0</text> </ observationRange> </referenceRange> </observation> </ component> <component> <observation moodCode="EVN" classCode="OBS"> <templateId root="10.29.840.1.102330.10.20.22.4.2" /> <id nullFlavor="NA" /> <code codeSystem="local" code="MCV" displayName="MCV " /> <statusCode code="completed" /> <effectiveTime value= "" /> <value unit="fL" xsi:type="PQ" value="91.2" /> <referenceRange> <observationRange> <text>82.0-99.0< /text> </observationRange> </referenceRange> </ observation> </component> <component> <observation moodCode= "EVN" classCode="OBS"> <templateId root="216.840.1.358025.10.22.4.2 " /> <id nullFlavor="NA" /> <code codeSystem="local" code="MPV " displayName="MPV" /> <statusCode code="completed" /> < effectiveTime value="" /> <value unit="fL" xsi:type="PQ" value="10.7" /> <referenceRange> <observationRange> <text>9.4-12.3</text> </observationRange> </ referenceRange> </observation> </component> <component> <observation moodCode="EVN" classCode="OBS"> <templateId root= "10.29.840.1.401198.07.02.22.4.2" /> <id nullFlavor="NA" /> < code codeSystem="local" code="PLT" displayName="Platelet Count" /> < statusCode code="completed" /> <effectiveTime value="" /> <value unit="K/uL" xsi:type="PQ" value="167" /> < referenceRange> <observationRange> <text>150-400</text> </observationRange> </referenceRange> </observation > </component> <component> <observation moodCode="EVN" classCode="OBS"> <templateId root="10.29.840.1.957179.07.02.22.4.2" /> <id nullFlavor="NA" /> <code codeSystem="local" code="RBC" displayName="RBC" /> <statusCode code="completed" /> < effectiveTime value="" /> <value unit="10*6/uL" xsi:type= "PQ" value="4.79" /> <referenceRange> <observationRange> <text>4.60-6.20</text> </observationRange> </ referenceRange> </observation> </component> <component> <observation moodCode="EVN" classCode="OBS"> <templateId root= "216.840.1.850020.22.4.2" /> <id nullFlavor="NA" /> < code codeSystem="local" code="RDW" displayName="RDW" /> <statusCode code="completed" /> <effectiveTime value="" /> < value unit="%" xsi:type="PQ" value="14.9" /> <interpretationCode codeSystem="local" code="*" /> <referenceRange> < observationRange> <text>11.5-14.5</text> </ observationRange> </referenceRange> </observation> </ component> <component> <observation moodCode="EVN" classCode="OBS"> <templateId root="216.840.1.874235.22.4.2" /> <id nullFlavor="NA" /> <code codeSystem="local" code="WBCIR" displayName= "WBC" /> <statusCode code="completed" /> <effectiveTime value= "" /> <value unit="K/uL" xsi:type="PQ" value="7.5" /> <referenceRange> <observationRange> <text>4.8-10.8< /text> </observationRange> </referenceRange> </ observation> </component> </organizer> </entry> <entry> <organizer moodCode="EVN" classCode="BATTERY"> <templateId root= "216.840.1.103108.10..22.4.1" /> <id nullFlavor="NA" /> <code codeSystem="local" code="CMP" displayName="Comprehensive Metabolic Panel (CMP)" /> <statusCode code="completed" /> <component> <observation moodCode="EVN" classCode="OBS"> <templateId root= "16.840.1.229022...4.2" /> <id nullFlavor="NA" /> < code codeSystem="local" code="ALB" displayName="Albumin" /> < statusCode code="completed" /> <effectiveTime value="" /> <value unit="g/dL" xsi:type="PQ" value="4.0" /> < referenceRange> <observationRange> <text>3.5-4.8</text> </observationRange> </referenceRange> </observation > </component> <component> <observation moodCode="EVN" classCode="OBS"> <templateId root="10.29.840.1.752768.07.02.22.4.2" /> <id nullFlavor="NA" /> <code codeSystem="local" code="ALP" displayName="Alkaline Phosphatase" /> <statusCode code="completed" /> <effectiveTime value="" /> <value unit="U/L" xsi: type="PQ" value="36" /> <referenceRange> <observationRange> <text>26-104</text> </observationRange> </ referenceRange> </observation> </component> <component> <observation moodCode="EVN" classCode="OBS"> <templateId root= "10.29.840.1.302075.10...4.2" /> <id nullFlavor="NA" /> < code codeSystem="local" code="ALT" displayName="ALT (SGPT)" /> < statusCode code="completed" /> <effectiveTime value="" /> <value unit="U/L" xsi:type="PQ" value="23" /> <referenceRange > <observationRange> <text>17-63</text> </ observationRange> </referenceRange> </observation> </ component> <component> <observation moodCode="EVN" classCode="OBS"> <templateId root="216.840.1.508429.10..22.4.2" /> <id nullFlavor="NA" /> <code codeSystem="local" code="AGAP" displayName= "Anion Gap" /> <statusCode code="completed" /> <effectiveTime value="" /> <value unit="mEq/L" xsi:type="PQ" value="8" /> <referenceRange> <observationRange> <text>3-20 </text> </observationRange> </referenceRange> </ observation> </component> <component> <observation moodCode= "EVN" classCode="OBS"> <templateId root="16.840.1.823019.10..22.4.2 " /> <id nullFlavor="NA" /> <code codeSystem="local" code="AST " displayName="AST (SGOT)" /> <statusCode code="completed" /> <effectiveTime value="" /> <value unit="U/L" xsi:type="PQ" value="18" /> <referenceRange> <observationRange> <text>15-41</text> </observationRange> </referenceRange > </observation> </component> <component> <observation moodCode="EVN" classCode="OBS"> <templateId root= "216.840.1.024000.10.4.2" /> <id nullFlavor="NA" /> < code codeSystem="local" code="BILIT" displayName="Bilirubin Total" /> < statusCode code="completed" /> <effectiveTime value="" /> <value unit="mg/dL" xsi:type="PQ" value="0.6" /> < referenceRange> <observationRange> <text>0.2-1.2</text> </observationRange> </referenceRange> </observation > </component> <component> <observation moodCode="EVN" classCode="OBS"> <templateId root="2.16.840.1.265385.07.02.224.2" /> <id nullFlavor="NA" /> <code codeSystem="local" code="BUN" displayName="BUN" /> <statusCode code="completed" /> < effectiveTime value="" /> <value unit="mg/dL" xsi:type="PQ " value="31" /> <interpretationCode codeSystem="local" code="*" /> <referenceRange> <observationRange> <text>4-20</ text> </observationRange> </referenceRange> </ observation> </component> <component> <observation moodCode= "EVN" classCode="OBS"> <templateId root="2.16.840.1.771367.07.02.224.2 " /> <id nullFlavor="NA" /> <code codeSystem="local" code="CA " displayName="Calcium" /> <statusCode code="completed" /> < effectiveTime value="" /> <value unit="mg/dL" xsi:type="PQ " value="9.7" /> <referenceRange> <observationRange> <text>8.6-10.0</text> </observationRange> </ referenceRange> </observation> </component> <component> <observation moodCode="EVN" classCode="OBS"> <templateId root= "216.840.1.443855.10..22.4.2" /> <id nullFlavor="NA" /> < code codeSystem="local" code="CL" displayName="Chloride" /> < statusCode code="completed" /> <effectiveTime value="" /> <value unit="mEq/L" xsi:type="PQ" value="101" /> < referenceRange> <observationRange> <text>99-109</text> </observationRange> </referenceRange> </observation> </component> <component> <observation moodCode="EVN" classCode ="OBS"> <templateId root="216.840.1.583950.10...4.2" /> < id nullFlavor="NA" /> <code codeSystem="local" code="CO2" displayName= "CO2" /> <statusCode code="completed" /> <effectiveTime value= "" /> <value unit="mEq/L" xsi:type="PQ" value="31" /> <referenceRange> <observationRange> <text>22-32</ text> </observationRange> </referenceRange> </ observation> </component> <component> <observation moodCode= "EVN" classCode="OBS"> <templateId root="216.840.1.593018.10.22.4.2 " /> <id nullFlavor="NA" /> <code codeSystem="local" code= "CREAT" displayName="Creatinine" /> <statusCode code="completed" /> <effectiveTime value="513057098242" /> <value unit="mg/dL" xsi: type="PQ" value="1.20" /> <referenceRange> <observationRange > <text>0.64-1.27</text> </observationRange> </ referenceRange> </observation> </component> <component> <observation moodCode="EVN" classCode="OBS"> <templateId root= "10.29.840.1.131292.10..4.2" /> <id nullFlavor="NA" /> < code codeSystem="local" code="GLOB" displayName="Globulin" /> < statusCode code="completed" /> <effectiveTime value="" /> <value unit="g/dL" xsi:type="PQ" value="2.4" /> < referenceRange> <observationRange> <text>1.9-4.3</text> </observationRange> </referenceRange> </observation > </component> <component> <observation moodCode="EVN" classCode="OBS"> <templateId root="840.1.703726.07.02.22.4.2" /> <id nullFlavor="NA" /> <code codeSystem="local" code="GLU" displayName="Glucose" /> <statusCode code="completed" /> < effectiveTime value="" /> <value unit="mg/dL" xsi:type="PQ " value="97" /> <referenceRange> <observationRange> <text>70-100</text> </observationRange> </ referenceRange> </observation> </component> <component> <observation moodCode="EVN" classCode="OBS"> <templateId root= "10.29.840.1.773504....4.2" /> <id nullFlavor="NA" /> < code codeSystem="local" code="K" displayName="Potassium" /> < statusCode code="completed" /> <effectiveTime value="" /> <value unit="mEq/L" xsi:type="PQ" value="4.8" /> < referenceRange> <observationRange> <text>3.6-5.1</text> </observationRange> </referenceRange> </observation > </component> <component> <observation moodCode="EVN" classCode="OBS"> <templateId root="16.840.1.890673.10..22.4.2" /> <id nullFlavor="NA" /> <code codeSystem="local" code="TP" displayName="Protein" /> <statusCode code="completed" /> < effectiveTime value="460614969088" /> <value unit="g/dL" xsi:type="PQ" value="6.4" /> <referenceRange> <observationRange> <text>6.1-7.9</text> </observationRange> </ referenceRange> </observation> </component> <component> <observation moodCode="EVN" classCode="OBS"> <templateId root= "10.29.840.1.245403.10..4.2" /> <id nullFlavor="NA" /> < code codeSystem="local" code="NA" displayName="Sodium" /> <statusCode code="completed" /> <effectiveTime value="178914953414" /> < value unit="mEq/L" xsi:type="PQ" value="140" /> <referenceRange> <observationRange> <text>136-144</text> </ observationRange> </referenceRange> </observation> </ component> </organizer> </entry> <entry> <organizer moodCode="EVN" classCode="BATTERY"> <templateId root="16.840.1.845664.10..22.4.1" /> <id nullFlavor="NA" /> <code codeSystem="local" code="GFR" displayName ="eGFR" /> <statusCode code="completed" /> <component> < observation moodCode="EVN" classCode="OBS"> <templateId root= "216.840.1.345611.10..22.4.2" /> <id nullFlavor="NA" /> < code codeSystem="local" code="GFR" displayName="eGFR" /> <statusCode code="completed" /> <effectiveTime value="418216093744" /> < value unit="mL/min" xsi:type="PQ" value=">60" /> <referenceRange> <observationRange> <text>>60</text> </ observationRange> </referenceRange> </observation> </ component> </organizer> </entry> <entry> <organizer moodCode="EVN" classCode="BATTERY"> <templateId root="16.840.1.573090.10..22.4.1" /> <id nullFlavor="NA" /> <code codeSystem="local" code="04285-4" displayName="Complete blood count (CBC) with automated white blood cell (WBC) differential" /> <statusCode code="completed" /> <component> < observation moodCode="EVN" classCode="OBS"> <templateId root= "216.840.1.172791.10..22.4.2" /> <id nullFlavor="NA" /> < code codeSystem="local" code="6690-2" displayName="Blood leukocytes automated count (number/volume)" /> <statusCode code="completed" /> < effectiveTime value="613530223564" /> <value unit="10*3/uL" xsi:type= "PQ" value="9.1" /> <referenceRange> <observationRange> <text>4.3-11.0</text> </observationRange> </ referenceRange> </observation> </component> <component> <observation moodCode="EVN" classCode="OBS"> <templateId root= "2.16.840.1.241518.10.20.22.4.2" /> <id nullFlavor="NA" /> < code codeSystem="local" code="789-8" displayName="Blood erythrocytes automated count (number/volume)" /> <statusCode code="completed" /> < effectiveTime value="123300716990" /> <value unit="10*6/uL" xsi:type= "PQ" value="4.81" /> <referenceRange> <observationRange> <text>4.35-5.85</text> </observationRange> </ referenceRange> </observation> </component> <component> <observation moodCode="EVN" classCode="OBS"> <templateId root= "216.840.1.241996.10.22.4.2" /> <id nullFlavor="NA" /> < code codeSystem="local" code="65193-3" displayName="Venous blood hemoglobin measurement (mass/volume)" /> <statusCode code="completed" /> <effectiveTime value="299303391125" /> <value unit="g/dL" xsi:type="PQ " value="14.7" /> <referenceRange> <observationRange> <text>13.3-17.7</text> </observationRange> </ referenceRange> </observation> </component> <component> <observation moodCode="EVN" classCode="OBS"> <templateId root= "2.16.840.1.250349.10.20.22.4.2" /> <id nullFlavor="NA" /> < code codeSystem="local" code="03366-7" displayName="Blood hematocrit (volume fraction)" /> <statusCode code="completed" /> <effectiveTime value="339098443433" /> <value unit="%" xsi:type="PQ" value="44" / > <referenceRange> <observationRange> <text>40- 54</text> </observationRange> </referenceRange> </ observation> </component> <component> <observation moodCode= "EVN" classCode="OBS"> <templateId root="2.16.840.1.315301.10..4.2 " /> <id nullFlavor="NA" /> <code codeSystem="local" code="787 -2" displayName="Automated erythrocyte mean corpuscular volume" /> < statusCode code="completed" /> <effectiveTime value="377051654207" /> <value unit="[foz_us]" xsi:type="PQ" value="91" /> < referenceRange> <observationRange> <text>80-99</text> </observationRange> </referenceRange> </observation> </component> <component> <observation moodCode="EVN" classCode= "OBS"> <templateId root="216.840.1.273623.10...4.2" /> < id nullFlavor="NA" /> <code codeSystem="local" code="785-6" displayName ="Automated erythrocyte mean corpuscular hemoglobin (mass per erythrocyte)" /> <statusCode code="completed" /> <effectiveTime value= "764548645153" /> <value unit="pg" xsi:type="PQ" value="31" /> <referenceRange> <observationRange> <text>25-34</text > </observationRange> </referenceRange> </observation > </component> <component> <observation moodCode="EVN" classCode="OBS"> <templateId root="2.16.840.1.407984.10.20.22.4.2" /> <id nullFlavor="NA" /> <code codeSystem="local" code="786-4" displayName="Automated erythrocyte mean corpuscular hemoglobin concentration measurement (mass/volume)" /> <statusCode code="completed" /> <effectiveTime value="711239618417" /> <value unit="g/dL" xsi:type="PQ " value="34" /> <referenceRange> <observationRange> <text>32-36</text> </observationRange> </ referenceRange> </observation> </component> <component> <observation moodCode="EVN" classCode="OBS"> <templateId root= "2.16.840.1.597649.10..22.4.2" /> <id nullFlavor="NA" /> < code codeSystem="local" code="788-0" displayName="Automated erythrocyte distribution width ratio" /> <statusCode code="completed" /> < effectiveTime value="046969742313" /> <value unit="%" xsi:type="PQ " value="14.2" /> <referenceRange> <observationRange> <text>10.0-14.5</text> </observationRange> </ referenceRange> </observation> </component> <component> <observation moodCode="EVN" classCode="OBS"> <templateId root= "2.16.840.1.547421.10..22.4.2" /> <id nullFlavor="NA" /> < code codeSystem="local" code="777-3" displayName="Automated blood platelet count (count/volume)" /> <statusCode code="completed" /> < effectiveTime value="520809900864" /> <value unit="10*3/uL" xsi:type= "PQ" value="155" /> <referenceRange> <observationRange> <text>130-400</text> </observationRange> </ referenceRange> </observation> </component> <component> <observation moodCode="EVN" classCode="OBS"> <templateId root= "216.840.1.405237.10.20.22.4.2" /> <id nullFlavor="NA" /> < code codeSystem="local" code="96069-0" displayName="Automated blood platelet mean volume measurement" /> <statusCode code="completed" /> < effectiveTime value="829173564015" /> <value unit="[foz_us]" xsi:type= "PQ" value="10.5" /> <interpretationCode codeSystem="local" code="" / > <referenceRange> <observationRange> <text>7.4 -10.4</text> </observationRange> </referenceRange> </ observation> </component> <component> <observation moodCode= "EVN" classCode="OBS"> <templateId root="10.29.840.1.084067.10.2022.4.2 " /> <id nullFlavor="NA" /> <code codeSystem="local" code="770 -8" displayName="Automated blood neutrophils/100 leukocytes" /> < statusCode code="completed" /> <effectiveTime value="739935182958" /> <value unit="%" xsi:type="PQ" value="69" /> < referenceRange> <observationRange> <text>42-75</text> </observationRange> </referenceRange> </observation> </component> <component> <observation moodCode="EVN" classCode= "OBS"> <templateId root="216.840.1.804475.10.20.22.4.2" /> < id nullFlavor="NA" /> <code codeSystem="local" code="736-9" displayName ="Automated blood lymphocytes/100 leukocytes" /> <statusCode code= "completed" /> <effectiveTime value="315494408016" /> <value unit="%" xsi:type="PQ" value="16" /> <referenceRange> < observationRange> <text>12-44</text> </observationRange > </referenceRange> </observation> </component> < component> <observation moodCode="EVN" classCode="OBS"> < templateId root="2.16.840.1.542895.10.20.22.4.2" /> <id nullFlavor="NA " /> <code codeSystem="local" code="82234-0" displayName="Blood monocytes/100 leukocytes" /> <statusCode code="completed" /> < effectiveTime value="282650794293" /> <value unit="%" xsi:type="PQ " value="13" /> <interpretationCode codeSystem="local" code="" /> <referenceRange> <observationRange> <text>0-12</ text> </observationRange> </referenceRange> </ observation> </component> <component> <observation moodCode= "EVN" classCode="OBS"> <templateId root="2.16.840.1.000660.10.20.22.4.2 " /> <id nullFlavor="NA" /> <code codeSystem="local" code="713 -8" displayName="Automated blood eosinophils/100 leukocytes" /> < statusCode code="completed" /> <effectiveTime value="871060499013" /> <value unit="%" xsi:type="PQ" value="2" /> <referenceRange > <observationRange> <text>0-10</text> </ observationRange> </referenceRange> </observation> </ component> <component> <observation moodCode="EVN" classCode="OBS"> <templateId root="216.840.1.877448.10.20.22.4.2" /> <id nullFlavor="NA" /> <code codeSystem="local" code="706-2" displayName= "Automated blood basophils/100 leukocytes" /> <statusCode code= "completed" /> <effectiveTime value="" /> <value unit="%" xsi:type="PQ" value="0" /> <referenceRange> < observationRange> <text>0-10</text> </observationRange> </referenceRange> </observation> </component> < component> <observation moodCode="EVN" classCode="OBS"> < templateId root="16.840.1.831821.10.22.4.2" /> <id nullFlavor="NA " /> <code codeSystem="local" code="751-8" displayName="Blood neutrophils automated count (number/volume)" /> <statusCode code= "completed" /> <effectiveTime value="" /> <value unit="10*3" xsi:type="PQ" value="6.3" /> <referenceRange> < observationRange> <text>1.8-7.8</text> </ observationRange> </referenceRange> </observation> </ component> <component> <observation moodCode="EVN" classCode="OBS"> <templateId root="16.840.1.427542.10.20.22.4.2" /> <id nullFlavor="NA" /> <code codeSystem="local" code="731-0" displayName= "Blood lymphocytes automated count (number/volume)" /> <statusCode code ="completed" /> <effectiveTime value="" /> <value unit="10*3" xsi:type="PQ" value="1.4" /> <referenceRange> < observationRange> <text>1.0-4.0</text> </ observationRange> </referenceRange> </observation> </ component> <component> <observation moodCode="EVN" classCode="OBS"> <templateId root="216.840.1.679419.10..22.4.2" /> <id nullFlavor="NA" /> <code codeSystem="local" code="742-7" displayName= "Blood monocytes automated count (number/volume)" /> <statusCode code= "completed" /> <effectiveTime value="907948832637" /> <value unit="10*3" xsi:type="PQ" value="1.2" /> <interpretationCode codeSystem ="local" code="" /> <referenceRange> <observationRange> <text>0.0-1.0</text> </observationRange> </ referenceRange> </observation> </component> <component> <observation moodCode="EVN" classCode="OBS"> <templateId root= "10.29.840.1.162888.07.02.22.4.2" /> <id nullFlavor="NA" /> < code codeSystem="local" code="711-2" displayName="Automated eosinophil count" / > <statusCode code="completed" /> <effectiveTime value= "847914711544" /> <value unit="10*3/uL" xsi:type="PQ" value="0.2" /> <referenceRange> <observationRange> <text>0.0- 0.3</text> </observationRange> </referenceRange> </ observation> </component> <component> <observation moodCode= "EVN" classCode="OBS"> <templateId root="216.840.1.229312.10.2022.4.2 " /> <id nullFlavor="NA" /> <code codeSystem="local" code="704 -7" displayName="Automated blood basophil count (count/volume)" /> < statusCode code="completed" /> <effectiveTime value="724975781384" /> <value unit="10*3/uL" xsi:type="PQ" value="0.0" /> < referenceRange> <observationRange> <text>0.0-0.1</text> </observationRange> </referenceRange> </observation > </component> </organizer> </entry> <entry> <organizer moodCode= "EVN" classCode="BATTERY"> <templateId root="2.16.840.1.109278.10.20.22.4.1 " /> <id nullFlavor="NA" /> <code codeSystem="local" code="67009-6" displayName="Comprehensive metabolic panel" /> <statusCode code="completed " /> <component> <observation moodCode="EVN" classCode="OBS"> <templateId root="2.16.840.1.641043.10.20.22.4.2" /> <id nullFlavor ="NA" /> <code codeSystem="local" code="2951-2" displayName="Serum or plasma sodium measurement (moles/volume)" /> <statusCode code= "completed" /> <effectiveTime value="573221115570" /> <value unit="mmol/L" xsi:type="PQ" value="140" /> <referenceRange> <observationRange> <text>135-145</text> </ observationRange> </referenceRange> </observation> </ component> <component> <observation moodCode="EVN" classCode="OBS"> <templateId root="216.840.1.688307.10.20.22.4.2" /> <id nullFlavor="NA" /> <code codeSystem="local" code="2823-3" displayName= "Serum or plasma potassium measurement (moles/volume)" /> <statusCode code="completed" /> <effectiveTime value="175187083745" /> < value unit="mmol/L" xsi:type="PQ" value="4.8" /> <referenceRange> <observationRange> <text>3.6-5.0</text> </ observationRange> </referenceRange> </observation> </ component> <component> <observation moodCode="EVN" classCode="OBS"> <templateId root="2.16.840.1.537701.10.20.22.4.2" /> <id nullFlavor="NA" /> <code codeSystem="local" code="20750" displayName= "Serum or plasma chloride measurement (moles/volume)" /> <statusCode code="completed" /> <effectiveTime value="510124541036" /> < value unit="mmol/L" xsi:type="PQ" value="105" /> <referenceRange> <observationRange> <text>98-107</text> </ observationRange> </referenceRange> </observation> </ component> <component> <observation moodCode="EVN" classCode="OBS"> <templateId root="2.16.840.1.836792.10.20.22.4.2" /> <id nullFlavor="NA" /> <code codeSystem="local" code="2028-05" displayName= "Carbon dioxide" /> <statusCode code="completed" /> < effectiveTime value="045104630872" /> <value unit="mmol/L" xsi:type="PQ " value="28" /> <referenceRange> <observationRange> <text>21-32</text> </observationRange> </ referenceRange> </observation> </component> <component> <observation moodCode="EVN" classCode="OBS"> <templateId root= "2.16.840.1.486873.10.20.22.4.2" /> <id nullFlavor="NA" /> < code codeSystem="local" code="41920-6" displayName="Serum or plasma anion gap determination (moles/volume)" /> <statusCode code="completed" /> <effectiveTime value="641099885738" /> <value unit="mmol/L" xsi: type="PQ" value="7" /> <referenceRange> <observationRange> <text>5-14</text> </observationRange> </ referenceRange> </observation> </component> <component> <observation moodCode="EVN" classCode="OBS"> <templateId root= "2.16.840.1.712405.10..22.4.2" /> <id nullFlavor="NA" /> < code codeSystem="local" code="3094-0" displayName="Serum or plasma urea nitrogen measurement (mass/volume)" /> <statusCode code="completed" /> <effectiveTime value="020292399078" /> <value unit="mg/dL" xsi:type="PQ" value="30" /> <interpretationCode codeSystem="local" code ="" /> <referenceRange> <observationRange> < text>7-18</text> </observationRange> </referenceRange> </observation> </component> <component> <observation moodCode="EVN" classCode="OBS"> <templateId root= "2.16.840.1.394814.10.20.22.4.2" /> <id nullFlavor="NA" /> < code codeSystem="local" code="2160-0" displayName="Serum or plasma creatinine measurement (mass/volume)" /> <statusCode code="completed" /> <effectiveTime value="452112855188" /> <value unit="mg/dL" xsi:type="PQ " value="0.96" /> <referenceRange> <observationRange> <text>0.60-1.30</text> </observationRange> </ referenceRange> </observation> </component> <component> <observation moodCode="EVN" classCode="OBS"> <templateId root= "2.16.840.1.384428.10..22.4.2" /> <id nullFlavor="NA" /> < code codeSystem="local" code="3097-3" displayName="Serum or plasma urea nitrogen /creatinine mass ratio" /> <statusCode code="completed" /> < effectiveTime value="966931959965" /> <value unit="" xsi:type="PQ" value="31" /> <referenceRange> <observationRange> <text>NRG</text> </observationRange> </referenceRange> </observation> </component> <component> <observation moodCode="EVN" classCode="OBS"> <templateId root= "216.840.1.540971.10...4.2" /> <id nullFlavor="NA" /> < code codeSystem="local" code="61678-6" displayName="Serum or plasma creatinine measurement with calculation of estimated glomerular filtration rate" /> <statusCode code="completed" /> <effectiveTime value="623684540786" /> <value unit="" xsi:type="PQ" value=">" /> < referenceRange> <observationRange> <text>NRG</text> </observationRange> </referenceRange> </observation> </component> <component> <observation moodCode="EVN" classCode= "OBS"> <templateId root="2.16.840.1.015381.10..22.4.2" /> < id nullFlavor="NA" /> <code codeSystem="local" code="2345-7" displayName="Serum or plasma glucose measurement (mass/volume)" /> < statusCode code="completed" /> <effectiveTime value="671055544890" /> <value unit="mg/dL" xsi:type="PQ" value="98" /> < referenceRange> <observationRange> <text>70-105</text> </observationRange> </referenceRange> </observation> </component> <component> <observation moodCode="EVN" classCode ="OBS"> <templateId root="2.16.840.1.974276.10.20.22.4.2" /> < id nullFlavor="NA" /> <code codeSystem="local" code="30855-2" displayName="Serum or plasma calcium measurement (mass/volume)" /> < statusCode code="completed" /> <effectiveTime value="707068116826" /> <value unit="mg/dL" xsi:type="PQ" value="9.6" /> < referenceRange> <observationRange> <text>8.5-10.1</text > </observationRange> </referenceRange> </observation > </component> <component> <observation moodCode="EVN" classCode="OBS"> <templateId root="2.16.840.1.353070.10.20.22.4.2" /> <id nullFlavor="NA" /> <code codeSystem="local" code="1974-10" displayName="Serum or plasma total bilirubin measurement (mass/volume)" /> <statusCode code="completed" /> <effectiveTime value="256168697345 " /> <value unit="mg/dL" xsi:type="PQ" value="0.3" /> < referenceRange> <observationRange> <text>0.1-1.0</text> </observationRange> </referenceRange> </observation > </component> <component> <observation moodCode="EVN" classCode="OBS"> <templateId root="2.16.840.1.839032.10..22.4.2" /> <id nullFlavor="NA" /> <code codeSystem="local" code="6768-" displayName="Serum or plasma alkaline phosphatase measurement (enzymatic activity/volume)" /> <statusCode code="completed" /> < effectiveTime value="093205778570" /> <value unit="U/L" xsi:type="PQ" value="41" /> <referenceRange> <observationRange> <text>40-136</text> </observationRange> </referenceRange > </observation> </component> <component> <observation moodCode="EVN" classCode="OBS"> <templateId root= "2.16.840.1.040955.10..22.4.2" /> <id nullFlavor="NA" /> < code codeSystem="local" code="1920-04" displayName="Serum or plasma aspartate aminotransferase measurement (enzymatic activity/volume)" /> < statusCode code="completed" /> <effectiveTime value="962870596836" /> <value unit="U/L" xsi:type="PQ" value="13" /> <referenceRange > <observationRange> <text>5-34</text> </ observationRange> </referenceRange> </observation> </ component> <component> <observation moodCode="EVN" classCode="OBS"> <templateId root="2.16.840.1.659935.10..22.4.2" /> <id nullFlavor="NA" /> <code codeSystem="local" code="17410-19" displayName= "Serum or plasma alanine aminotransferase measurement (enzymatic activity/volume )" /> <statusCode code="completed" /> <effectiveTime value= "615057155248" /> <value unit="U/L" xsi:type="PQ" value="21" /> <referenceRange> <observationRange> <text>0-55</text > </observationRange> </referenceRange> </observation > </component> <component> <observation moodCode="EVN" classCode="OBS"> <templateId root="216.840.1.235861.10..22.4.2" /> <id nullFlavor="NA" /> <code codeSystem="local" code="2885-" displayName="Serum or plasma protein measurement (mass/volume)" /> < statusCode code="completed" /> <effectiveTime value="877173109237" /> <value unit="g/dL" xsi:type="PQ" value="6.8" /> < referenceRange> <observationRange> <text>6.4-8.2</text> </observationRange> </referenceRange> </observation > </component> <component> <observation moodCode="EVN" classCode="OBS"> <templateId root="10.29.840.1.917644.10..22.4.2" /> <id nullFlavor="NA" /> <code codeSystem="local" code="1751-" displayName="Serum or plasma albumin measurement (mass/volume)" /> < statusCode code="completed" /> <effectiveTime value="154419229967" /> <value unit="g/dL" xsi:type="PQ" value="4.2" /> < referenceRange> <observationRange> <text>3.2-4.5</text> </observationRange> </referenceRange> </observation > </component> </organizer> </entry> <entry> <organizer moodCode= "EVN" classCode="BATTERY"> <templateId root="10.29.840.1.422487.10.22.4.1 " /> <id nullFlavor="NA" /> <code codeSystem="local" code="KJO1331" displayName="[id number]" /> <statusCode code="completed" /> <component> <observation moodCode="EVN" classCode="OBS"> <templateId root= "840.1.639637.07.02.22.4.2" /> <id nullFlavor="NA" /> < code codeSystem="local" code="QEB3980" displayName="[id number]" /> < statusCode code="completed" /> <effectiveTime value="070170830372" /> <value unit="ug/mL" xsi:type="PQ" value="55.5" /> < referenceRange> <observationRange> <text>50.0-100.0</ text> </observationRange> </referenceRange> </ observation> </component> </organizer> </entry> <entry> <organizer moodCode="EVN" classCode="BATTERY"> <templateId root= "10.29.840.1.301768.07.02.22.4.1" /> <id nullFlavor="NA" /> <code codeSystem="local" code="88314-8" displayName="Complete urinalysis with reflex to culture" /> <statusCode code="completed" /> <component> < observation moodCode="EVN" classCode="OBS"> <templateId root= "10.29.840.1.925536.07.02.22.4.2" /> <id nullFlavor="NA" /> < code codeSystem="local" code="5778-6" displayName="Urine color determination" / > <statusCode code="completed" /> <effectiveTime value= "227060480247" /> <value unit="" xsi:type="PQ" value="YELLOW" /> <referenceRange> <observationRange> <text>NRG</text > </observationRange> </referenceRange> </observation > </component> <component> <observation moodCode="EVN" classCode="OBS"> <templateId root="10.29.840.1.201008.10.20.22.4.2" /> <id nullFlavor="NA" /> <code codeSystem="local" code="62151-2 " displayName="Urine clarity determination" /> <statusCode code= "completed" /> <effectiveTime value="800823363878" /> <value unit="" xsi:type="PQ" value="CLEAR" /> <referenceRange> < observationRange> <text>NRG</text> </observationRange> </referenceRange> </observation> </component> < component> <observation moodCode="EVN" classCode="OBS"> < templateId root="10.29.840.1.774724.10.20.22.4.2" /> <id nullFlavor="NA " /> <code codeSystem="local" code="5803-2" displayName="Urine pH measurement by test strip" /> <statusCode code="completed" /> <effectiveTime value="109728824913" /> <value unit="" xsi:type="PQ" value="8" /> <referenceRange> <observationRange> <text>5-9</text> </observationRange> </referenceRange> </observation> </component> <component> <observation moodCode="EVN" classCode="OBS"> <templateId root= "10.29.840.1.236452.10.20.22.4.2" /> <id nullFlavor="NA" /> < code codeSystem="local" code="5811-5" displayName="Specific gravity of urine by test strip" /> <statusCode code="completed" /> <effectiveTime value="" /> <value unit="" xsi:type="PQ" value="1.010" /> <interpretationCode codeSystem="local" code="" /> < referenceRange> <observationRange> <text>1.016-1.022</ text> </observationRange> </referenceRange> </ observation> </component> <component> <observation moodCode= "EVN" classCode="OBS"> <templateId root="10.29.840.1.796586.10..22.4.2 " /> <id nullFlavor="NA" /> <code codeSystem="local" code= "76879-6" displayName="Urine protein assay by test strip, semi-quantitative" /> <statusCode code="completed" /> <effectiveTime value= "" /> <value unit="" xsi:type="PQ" value="NEGATIVE" /> <referenceRange> <observationRange> <text>NEGATIVE </text> </observationRange> </referenceRange> </ observation> </component> <component> <observation moodCode= "EVN" classCode="OBS"> <templateId root="10.29.840.1.130636.10..22.4.2 " /> <id nullFlavor="NA" /> <code codeSystem="local" code= "13813-0" displayName="Urine glucose detection by automated test strip" /> <statusCode code="completed" /> <effectiveTime value=" " /> <value unit="" xsi:type="PQ" value="NEGATIVE" /> < referenceRange> <observationRange> <text>NEGATIVE</text > </observationRange> </referenceRange> </observation > </component> <component> <observation moodCode="EVN" classCode="OBS"> <templateId root="840.1.572819.10..22.4.2" /> <id nullFlavor="NA" /> <code codeSystem="local" code="67985-7 " displayName="Erythrocytes detection in urine sediment by light microscopy" /> <statusCode code="completed" /> <effectiveTime value= "" /> <value unit="" xsi:type="PQ" value="NEGATIVE" /> <referenceRange> <observationRange> <text>NEGATIVE </text> </observationRange> </referenceRange> </ observation> </component> <component> <observation moodCode= "EVN" classCode="OBS"> <templateId root="216.840.1.747204.10..4.2 " /> <id nullFlavor="NA" /> <code codeSystem="local" code= "71983-1" displayName="Urine ketones detection by automated test strip" /> <statusCode code="completed" /> <effectiveTime value=" " /> <value unit="" xsi:type="PQ" value="NEGATIVE" /> < referenceRange> <observationRange> <text>NEGATIVE</text > </observationRange> </referenceRange> </observation > </component> <component> <observation moodCode="EVN" classCode="OBS"> <templateId root="216.840.1.662493.10..4.2" /> <id nullFlavor="NA" /> <code codeSystem="local" code="5802-4" displayName="Urine nitrite detection by test strip" /> <statusCode code ="completed" /> <effectiveTime value="" /> <value unit="" xsi:type="PQ" value="NEGATIVE" /> <referenceRange> < observationRange> <text>NEGATIVE</text> </ observationRange> </referenceRange> </observation> </ component> <component> <observation moodCode="EVN" classCode="OBS"> <templateId root="216.840.1.480059.10..22.4.2" /> <id nullFlavor="NA" /> <code codeSystem="local" code="5770-3" displayName= "Urine total bilirubin detection by test strip" /> <statusCode code= "completed" /> <effectiveTime value="" /> <value unit="" xsi:type="PQ" value="NEGATIVE" /> <referenceRange> < observationRange> <text>NEGATIVE</text> </ observationRange> </referenceRange> </observation> </ component> <component> <observation moodCode="EVN" classCode="OBS"> <templateId root="216.840.1.384852.10..4.2" /> <id nullFlavor="NA" /> <code codeSystem="local" code="67915-6" displayName= "Urine urobilinogen measurement by automated test strip (mass/volume)" /> <statusCode code="completed" /> <effectiveTime value=" " /> <value unit="" xsi:type="PQ" value="NORMAL" /> < referenceRange> <observationRange> <text>NORMAL</text> </observationRange> </referenceRange> </observation> </component> <component> <observation moodCode="EVN" classCode ="OBS"> <templateId root="216.840.1.557073.10..22.4.2" /> < id nullFlavor="NA" /> <code codeSystem="local" code="5799-2" displayName="Urine leukocyte esterase detection by dipstick" /> < statusCode code="completed" /> <effectiveTime value="" /> <value unit="" xsi:type="PQ" value="NEGATIVE" /> < referenceRange> <observationRange> <text>NEGATIVE</text > </observationRange> </referenceRange> </observation > </component> <component> <observation moodCode="EVN" classCode="OBS"> <templateId root="16.840.1.538286.10.20.22.4.2" /> <id nullFlavor="NA" /> <code codeSystem="local" code="93680-7 " displayName="Automated urine sediment erythrocyte count by microscopy (number/ high power field)" /> <statusCode code="completed" /> < effectiveTime value="922819389349" /> <value unit="" xsi:type="PQ" value="RARE" /> <referenceRange> <observationRange> <text>NRG</text> </observationRange> </referenceRange > </observation> </component> <component> <observation moodCode="EVN" classCode="OBS"> <templateId root= "10.29.840.1.453619.10..22.4.2" /> <id nullFlavor="NA" /> < code codeSystem="local" code="5821-4" displayName="Automated urine sediment leukocyte count by microscopy (number/high power field)" /> < statusCode code="completed" /> <effectiveTime value="211291422691" /> <value unit="" xsi:type="PQ" value="RARE" /> <referenceRange> <observationRange> <text>NRG</text> </ observationRange> </referenceRange> </observation> </ component> <component> <observation moodCode="EVN" classCode="OBS"> <templateId root="10.29.840.1.155854.10.20.22.4.2" /> <id nullFlavor="NA" /> <code codeSystem="local" code="72545-5" displayName= "Bacteria detection in urine sediment by light microscopy" /> < statusCode code="completed" /> <effectiveTime value="165711259492" /> <value unit="" xsi:type="PQ" value="NEGATIVE" /> < referenceRange> <observationRange> <text>NRG</text> </observationRange> </referenceRange> </observation> </component> <component> <observation moodCode="EVN" classCode= "OBS"> <templateId root="216.840.1.000549.10.20.22.4.2" /> < id nullFlavor="NA" /> <code codeSystem="local" code="32883-2" displayName="Squamous epithelial cells detection in urine sediment by light microscopy" /> <statusCode code="completed" /> <effectiveTime value="" /> <value unit="" xsi:type="PQ" value="NONE" /> <referenceRange> <observationRange> <text>NRG</ text> </observationRange> </referenceRange> </ observation> </component> <component> <observation moodCode= "EVN" classCode="OBS"> <templateId root="216.840.1.585507.10..22.4.2 " /> <id nullFlavor="NA" /> <code codeSystem="local" code= "51802-2" displayName="Crystals detection in urine sediment by light microscopy " /> <statusCode code="completed" /> <effectiveTime value= "811496537151" /> <value unit="" xsi:type="PQ" value="NONE" /> <referenceRange> <observationRange> <text>NRG</text> </observationRange> </referenceRange> </observation> </component> <component> <observation moodCode="EVN" classCode ="OBS"> <templateId root="16.840.1.235621...22.4.2" /> < id nullFlavor="NA" /> <code codeSystem="local" code="42854-5" displayName="Casts detection in urine sediment by light microscopy" /> <statusCode code="completed" /> <effectiveTime value="" /> <value unit="" xsi:type="PQ" value="NONE" /> <referenceRange > <observationRange> <text>NRG</text> </ observationRange> </referenceRange> </observation> </ component> <component> <observation moodCode="EVN" classCode="OBS"> <templateId root="2.16.840.1.252785.07.02.22.4.2" /> <id nullFlavor="NA" /> <code codeSystem="local" code="8247-9" displayName= "Mucus detection in urine sediment by light microscopy" /> <statusCode code="completed" /> <effectiveTime value="686506925133" /> < value unit="" xsi:type="PQ" value="NEGATIVE" /> <referenceRange> <observationRange> <text>NRG</text> </ observationRange> </referenceRange> </observation> </ component> <component> <observation moodCode="EVN" classCode="OBS"> <templateId root="216.840.1.888290...4.2" /> <id nullFlavor="NA" /> <code codeSystem="local" code="74312-7" displayName= "Complete urinalysis with reflex to culture" /> <statusCode code= "completed" /> <effectiveTime value="" /> <value unit="" xsi:type="PQ" value="NO" /> <referenceRange> < observationRange> <text>NRG</text> </observationRange> </referenceRange> </observation> </component> </ organizer> </entry> <entry> <organizer moodCode="EVN" classCode="BATTERY"> <templateId root="2.16.840.1.627009.10..22.4.1" /> <id nullFlavor= "NA" /> <code codeSystem="local" code="62984-7" displayName="Arterial blood gas measurement" /> <statusCode code="completed" /> <component> <observation moodCode="EVN" classCode="OBS"> <templateId root= "2.16.840.1.917261.10..22.4.2" /> <id nullFlavor="NA" /> < code codeSystem="local" code="47907-0" displayName="Blood pCO2" /> < statusCode code="completed" /> <effectiveTime value="981602291360" /> <value unit="mm[Hg]" xsi:type="PQ" value="59" /> < interpretationCode codeSystem="local" code="" /> <referenceRange> <observationRange> <text>35-45</text> </ observationRange> </referenceRange> </observation> </ component> <component> <observation moodCode="EVN" classCode="OBS"> <templateId root="2.16.840.1.620883.10..22.4.2" /> <id nullFlavor="NA" /> <code codeSystem="local" code="43880-8" displayName= "Blood pO2" /> <statusCode code="completed" /> <effectiveTime value="553256972181" /> <value unit="mm[Hg]" xsi:type="PQ" value="246" /> <interpretationCode codeSystem="local" code="" /> < referenceRange> <observationRange> <text>79-93</text> </observationRange> </referenceRange> </observation> </component> <component> <observation moodCode="EVN" classCode= "OBS"> <templateId root="2.16.840.1.318548.10..22.4.2" /> < id nullFlavor="NA" /> <code codeSystem="local" code="1959-12" displayName="Arterial blood bicarbonate measurement (moles/volume)" /> <statusCode code="completed" /> <effectiveTime value="089770915343" /> <value unit="mmol/L" xsi:type="PQ" value="25" /> < referenceRange> <observationRange> <text>23-27</text> </observationRange> </referenceRange> </observation> </component> <component> <observation moodCode="EVN" classCode= "OBS"> <templateId root="2.16.840.1.087707.10..4.2" /> < id nullFlavor="NA" /> <code codeSystem="local" code="1925-03" displayName="Arterial blood base excess by calculation" /> <statusCode code="completed" /> <effectiveTime value="565616759596" /> < value unit="mmol/L" xsi:type="PQ" value="-1.2" /> <referenceRange> <observationRange> <text>-2.5-2.5</text> </ observationRange> </referenceRange> </observation> </ component> <component> <observation moodCode="EVN" classCode="OBS"> <templateId root="2.16.840.1.608413.10..22.4.2" /> <id nullFlavor="NA" /> <code codeSystem="local" code="2708-" displayName= "Arterial blood oxygen saturation measurement" /> <statusCode code= "completed" /> <effectiveTime value="384358207547" /> <value unit="%" xsi:type="PQ" value="100" /> <referenceRange> < observationRange> <text>94-100</text> </observationRange > </referenceRange> </observation> </component> < component> <observation moodCode="EVN" classCode="OBS"> < templateId root="2.16.840.1.914309.10..22.4.2" /> <id nullFlavor="NA " /> <code codeSystem="local" code="3151-8" displayName="* Inhaled oxygen flow rate" /> <statusCode code="completed" /> < effectiveTime value="933498273890" /> <value unit="" xsi:type="PQ" value="100%" /> <referenceRange> <observationRange> <text>NRG</text> </observationRange> </ referenceRange> </observation> </component> <component> <observation moodCode="EVN" classCode="OBS"> <templateId root= "2.16.840.1.388173.10...4.2" /> <id nullFlavor="NA" /> < code codeSystem="local" code="52287-7" displayName="Arterial blood pH measurement with patient temperature correction" /> <statusCode code= "completed" /> <effectiveTime value="369519570254" /> <value unit="" xsi:type="PQ" value="7.25" /> <interpretationCode codeSystem= "local" code="" /> <referenceRange> <observationRange> <text>7.37-7.43</text> </observationRange> </ referenceRange> </observation> </component> <component> <observation moodCode="EVN" classCode="OBS"> <templateId root= "2.16.840.1.196404.10.4.2" /> <id nullFlavor="NA" /> < code codeSystem="local" code="2025-11" displayName="Arterial blood carbon dioxide , total measurement (moles/volume)" /> <statusCode code="completed" /> <effectiveTime value="586510535960" /> <value unit="mmol/L" xsi:type="PQ" value="26.8" /> <referenceRange> < observationRange> <text>21.0-31.0</text> </ observationRange> </referenceRange> </observation> </ component> <component> <observation moodCode="EVN" classCode="OBS"> <templateId root="2.16.840.1.273379.07.02.22.4.2" /> <id nullFlavor="NA" /> <code codeSystem="local" code="03514-4" displayName= "Body site" /> <statusCode code="completed" /> <effectiveTime value="458513883771" /> <value unit="" xsi:type="PQ" value="LEFT RADIAL " /> <referenceRange> <observationRange> <text> NRG</text> </observationRange> </referenceRange> </ observation> </component> <component> <observation moodCode= "EVN" classCode="OBS"> <templateId root="2.16.840.1.772215.10.4.2 " /> <id nullFlavor="NA" /> <code codeSystem="local" code= "40980-7" displayName="Assessment of wrist artery patency prior to arterial puncture" /> <statusCode code="completed" /> <effectiveTime value="573176429146" /> <value unit="" xsi:type="PQ" value="POSITIVE" / > <referenceRange> <observationRange> <text>NRG </text> </observationRange> </referenceRange> </ observation> </component> <component> <observation moodCode= "EVN" classCode="OBS"> <templateId root="216.840.1.973200.10.20.22.4.2 " /> <id nullFlavor="NA" /> <code codeSystem="local" code= "" displayName="Setting of ventilation mode" /> <statusCode code ="completed" /> <effectiveTime value="861372763932" /> <value unit="" xsi:type="PQ" value="YES" /> <referenceRange> < observationRange> <text>NRG</text> </observationRange> </referenceRange> </observation> </component> < component> <observation moodCode="EVN" classCode="OBS"> < templateId root="216.840.1.434510.10..22.4.2" /> <id nullFlavor="NA " /> <code codeSystem="local" code="8310-5" displayName="Measurement of body temperature" /> <statusCode code="completed" /> < effectiveTime value="257329387722" /> <value unit="" xsi:type="PQ" value="99.5" /> <referenceRange> <observationRange> <text>NRG</text> </observationRange> </referenceRange > </observation> </component> </organizer> </entry> <entry> <organizer moodCode="EVN" classCode="BATTERY"> <templateId root= "216.840.1.837035.10.20.22.4.1" /> <id nullFlavor="NA" /> <code codeSystem="local" code="79787-5" displayName="Complete blood count (CBC) with automated white blood cell (WBC) differential" /> <statusCode code= "completed" /> <component> <observation moodCode="EVN" classCode= "OBS"> <templateId root="2.16.840.1.013647.10.20.22.4.2" /> < id nullFlavor="NA" /> <code codeSystem="local" code="6690-2" displayName="Blood leukocytes automated count (number/volume)" /> < statusCode code="completed" /> <effectiveTime value="776836953460" /> <value unit="10*3/uL" xsi:type="PQ" value="14.2" /> < interpretationCode codeSystem="local" code="" /> <referenceRange> <observationRange> <text>4.3-11.0</text> </ observationRange> </referenceRange> </observation> </ component> <component> <observation moodCode="EVN" classCode="OBS"> <templateId root="16.840.1.472449..22.4.2" /> <id nullFlavor="NA" /> <code codeSystem="local" code="789-8" displayName= "Blood erythrocytes automated count (number/volume)" /> <statusCode code="completed" /> <effectiveTime value="869782017494" /> < value unit="10*6/uL" xsi:type="PQ" value="4.35" /> <referenceRange> <observationRange> <text>4.35-5.85</text> </ observationRange> </referenceRange> </observation> </ component> <component> <observation moodCode="EVN" classCode="OBS"> <templateId root="2.16.840.1.354061.10..22.4.2" /> <id nullFlavor="NA" /> <code codeSystem="local" code="44594-1" displayName= "Venous blood hemoglobin measurement (mass/volume)" /> <statusCode code ="completed" /> <effectiveTime value="336887305029" /> <value unit="g/dL" xsi:type="PQ" value="12.9" /> <interpretationCode codeSystem="local" code="" /> <referenceRange> < observationRange> <text>13.3-17.7</text> </ observationRange> </referenceRange> </observation> </ component> <component> <observation moodCode="EVN" classCode="OBS"> <templateId root="216.840.1.673574.10...4.2" /> <id nullFlavor="NA" /> <code codeSystem="local" code="42131-4" displayName= "Blood hematocrit (volume fraction)" /> <statusCode code="completed" / > <effectiveTime value="254258049767" /> <value unit="%" xsi:type="PQ" value="42" /> <referenceRange> < observationRange> <text>40-54</text> </observationRange > </referenceRange> </observation> </component> < component> <observation moodCode="EVN" classCode="OBS"> < templateId root="216.840.1.947442.10..22.4.2" /> <id nullFlavor="NA " /> <code codeSystem="local" code="787-2" displayName="Automated erythrocyte mean corpuscular volume" /> <statusCode code="completed" / > <effectiveTime value="591781195039" /> <value unit="[foz_us] " xsi:type="PQ" value="97" /> <referenceRange> < observationRange> <text>80-99</text> </observationRange > </referenceRange> </observation> </component> < component> <observation moodCode="EVN" classCode="OBS"> < templateId root="216.840.1.450822.10..22.4.2" /> <id nullFlavor="NA " /> <code codeSystem="local" code="785-6" displayName="Automated erythrocyte mean corpuscular hemoglobin (mass per erythrocyte)" /> < statusCode code="completed" /> <effectiveTime value="795487555027" /> <value unit="pg" xsi:type="PQ" value="30" /> <referenceRange> <observationRange> <text>25-34</text> </ observationRange> </referenceRange> </observation> </ component> <component> <observation moodCode="EVN" classCode="OBS"> <templateId root="216.840.1.900771.10..22.4.2" /> <id nullFlavor="NA" /> <code codeSystem="local" code="786-4" displayName= "Automated erythrocyte mean corpuscular hemoglobin concentration measurement ( mass/volume)" /> <statusCode code="completed" /> < effectiveTime value="705389512815" /> <value unit="g/dL" xsi:type="PQ" value="31" /> <interpretationCode codeSystem="local" code="" /> <referenceRange> <observationRange> <text>32-36</ text> </observationRange> </referenceRange> </ observation> </component> <component> <observation moodCode= "EVN" classCode="OBS"> <templateId root="16.840.1.582652.10..22.4.2 " /> <id nullFlavor="NA" /> <code codeSystem="local" code="788 -0" displayName="Automated erythrocyte distribution width ratio" /> < statusCode code="completed" /> <effectiveTime value="801218224267" /> <value unit="%" xsi:type="PQ" value="13.8" /> < referenceRange> <observationRange> <text>10.0-14.5</text > </observationRange> </referenceRange> </observation > </component> <component> <observation moodCode="EVN" classCode="OBS"> <templateId root="2.16.840.1.552500.10...4.2" /> <id nullFlavor="NA" /> <code codeSystem="local" code="777-3" displayName="Automated blood platelet count (count/volume)" /> < statusCode code="completed" /> <effectiveTime value="112984347161" /> <value unit="10*3/uL" xsi:type="PQ" value="119" /> < interpretationCode codeSystem="local" code="" /> <referenceRange> <observationRange> <text>130-400</text> </ observationRange> </referenceRange> </observation> </ component> <component> <observation moodCode="EVN" classCode="OBS"> <templateId root="216.840.1.104469.07.02.22.4.2" /> <id nullFlavor="NA" /> <code codeSystem="local" code="12690-7" displayName= "Automated blood platelet mean volume measurement" /> <statusCode code= "completed" /> <effectiveTime value="595344103869" /> <value unit="[foz_us]" xsi:type="PQ" value="10.7" /> <interpretationCode codeSystem="local" code="" /> <referenceRange> < observationRange> <text>7.4-10.4</text> </ observationRange> </referenceRange> </observation> </ component> <component> <observation moodCode="EVN" classCode="OBS"> <templateId root="216.840.1.906587.20.22.4.2" /> <id nullFlavor="NA" /> <code codeSystem="local" code="770-8" displayName= "Automated blood neutrophils/100 leukocytes" /> <statusCode code= "completed" /> <effectiveTime value="508534362082" /> <value unit="%" xsi:type="PQ" value="83" /> <interpretationCode codeSystem ="local" code="" /> <referenceRange> <observationRange> <text>42-75</text> </observationRange> </ referenceRange> </observation> </component> <component> <observation moodCode="EVN" classCode="OBS"> <templateId root= "216.840.1.273354.10.22.4.2" /> <id nullFlavor="NA" /> < code codeSystem="local" code="736-9" displayName="Automated blood lymphocytes/ 100 leukocytes" /> <statusCode code="completed" /> < effectiveTime value="212911085620" /> <value unit="%" xsi:type="PQ " value="7" /> <interpretationCode codeSystem="local" code="" /> <referenceRange> <observationRange> <text>12-44</ text> </observationRange> </referenceRange> </ observation> </component> <component> <observation moodCode= "EVN" classCode="OBS"> <templateId root="216.840.1.748044.10.20.22.4.2 " /> <id nullFlavor="NA" /> <code codeSystem="local" code= "44117-7" displayName="Blood monocytes/100 leukocytes" /> <statusCode code="completed" /> <effectiveTime value="757119798982" /> < value unit="%" xsi:type="PQ" value="10" /> <referenceRange> <observationRange> <text>0-12</text> </ observationRange> </referenceRange> </observation> </ component> <component> <observation moodCode="EVN" classCode="OBS"> <templateId root="2.16.840.1.673042.10.20.22.4.2" /> <id nullFlavor="NA" /> <code codeSystem="local" code="713-8" displayName= "Automated blood eosinophils/100 leukocytes" /> <statusCode code= "completed" /> <effectiveTime value="989566251199" /> <value unit="%" xsi:type="PQ" value="0" /> <referenceRange> < observationRange> <text>0-10</text> </observationRange> </referenceRange> </observation> </component> < component> <observation moodCode="EVN" classCode="OBS"> < templateId root="216.840.1.445297.10.20.22.4.2" /> <id nullFlavor="NA " /> <code codeSystem="local" code="706-2" displayName="Automated blood basophils/100 leukocytes" /> <statusCode code="completed" /> <effectiveTime value="635021135312" /> <value unit="%" xsi: type="PQ" value="0" /> <referenceRange> <observationRange> <text>0-10</text> </observationRange> </ referenceRange> </observation> </component> <component> <observation moodCode="EVN" classCode="OBS"> <templateId root= "216.840.1.380069.10.20.22.4.2" /> <id nullFlavor="NA" /> < code codeSystem="local" code="751-8" displayName="Blood neutrophils automated count (number/volume)" /> <statusCode code="completed" /> < effectiveTime value="546525108224" /> <value unit="10*3" xsi:type="PQ" value="11.7" /> <interpretationCode codeSystem="local" code="" /> <referenceRange> <observationRange> <text>1.8-7.8 </text> </observationRange> </referenceRange> </ observation> </component> <component> <observation moodCode= "EVN" classCode="OBS"> <templateId root="2.16.840.1.368633.10.20.22.4.2 " /> <id nullFlavor="NA" /> <code codeSystem="local" code="731 -0" displayName="Blood lymphocytes automated count (number/volume)" /> <statusCode code="completed" /> <effectiveTime value="844294605019" /> <value unit="10*3" xsi:type="PQ" value="1.0" /> < referenceRange> <observationRange> <text>1.0-4.0</text> </observationRange> </referenceRange> </observation > </component> <component> <observation moodCode="EVN" classCode="OBS"> <templateId root="2.16.840.1.990043.10.20.22.4.2" /> <id nullFlavor="NA" /> <code codeSystem="local" code="742-7" displayName="Blood monocytes automated count (number/volume)" /> < statusCode code="completed" /> <effectiveTime value="377920732774" /> <value unit="10*3" xsi:type="PQ" value="1.4" /> < interpretationCode codeSystem="local" code="" /> <referenceRange> <observationRange> <text>0.0-1.0</text> </ observationRange> </referenceRange> </observation> </ component> <component> <observation moodCode="EVN" classCode="OBS"> <templateId root="216.840.1.786962.10.22.4.2" /> <id nullFlavor="NA" /> <code codeSystem="local" code="711-2" displayName= "Automated eosinophil count" /> <statusCode code="completed" /> <effectiveTime value="425626815434" /> <value unit="10*3/uL" xsi: type="PQ" value="0.0" /> <referenceRange> <observationRange > <text>0.0-0.3</text> </observationRange> </ referenceRange> </observation> </component> <component> <observation moodCode="EVN" classCode="OBS"> <templateId root= "216.840.1.293632.07.02.22.4.2" /> <id nullFlavor="NA" /> < code codeSystem="local" code="704-7" displayName="Automated blood basophil count (count/volume)" /> <statusCode code="completed" /> < effectiveTime value="320932235002" /> <value unit="10*3/uL" xsi:type= "PQ" value="0.0" /> <referenceRange> <observationRange> <text>0.0-0.1</text> </observationRange> </ referenceRange> </observation> </component> </organizer> </entry > <entry> <organizer moodCode="EVN" classCode="BATTERY"> <templateId root="216.840.1.116568.10..22.4.1" /> <id nullFlavor="NA" /> <code codeSystem="local" code="71490-6" displayName="PT panel in platelet poor plasma by coagulation assay" /> <statusCode code="completed" /> <component> <observation moodCode="EVN" classCode="OBS"> <templateId root= "216.840.1.469394.10..4.2" /> <id nullFlavor="NA" /> < code codeSystem="local" code="5902-2" displayName="Prothrombin time (PT) in platelet poor plasma by coagulation assay" /> <statusCode code= "completed" /> <effectiveTime value="061566030579" /> <value unit="s" xsi:type="PQ" value="17.5" /> <interpretationCode codeSystem= "local" code="" /> <referenceRange> <observationRange> <text>12.2-14.7</text> </observationRange> </ referenceRange> </observation> </component> <component> <observation moodCode="EVN" classCode="OBS"> <templateId root= "216.840.1.391530.10.22.4.2" /> <id nullFlavor="NA" /> < code codeSystem="local" code="80108-5" displayName="INR in platelet poor plasma or blood by coagulation assay" /> <statusCode code="completed" /> <effectiveTime value="606960591495" /> <value unit="" xsi:type="PQ " value="1.4" /> <referenceRange> <observationRange> <text>0.8-1.4</text> </observationRange> </ referenceRange> </observation> </component> </organizer> </entry > <entry> <organizer moodCode="EVN" classCode="BATTERY"> <templateId root="2.16.840.1.808574.10.2022.4.1" /> <id nullFlavor="NA" /> <code codeSystem="local" code="11156-8" displayName="Activated partial thromboplastin time (aPTT) in platelet poor plasma bycoagulation assay" /> <statusCode code="completed" /> <component> <observation moodCode="EVN" classCode="OBS"> <templateId root="216.840.1.824737.10.20.22.4.2" /> <id nullFlavor="NA" /> <code codeSystem="local" code="00399-1 " displayName="Activated partial thromboplastin time (aPTT) in platelet poor plasma bycoagulation assay" /> <statusCode code="completed" /> <effectiveTime value="741635100792" /> <value unit="s" xsi:type="PQ" value="27" /> <referenceRange> <observationRange> <text>24-35</text> </observationRange> </referenceRange > </observation> </component> </organizer> </entry> <entry> <organizer moodCode="EVN" classCode="BATTERY"> <templateId root= "216.840.1.106075.10..22.4.1" /> <id nullFlavor="NA" /> <code codeSystem="local" code="46168-9" displayName="Comprehensive metabolic panel" / > <statusCode code="completed" /> <component> <observation moodCode="EVN" classCode="OBS"> <templateId root= "216.840.1.943643.10.20.22.4.2" /> <id nullFlavor="NA" /> < code codeSystem="local" code="2951-2" displayName="Serum or plasma sodium measurement (moles/volume)" /> <statusCode code="completed" /> <effectiveTime value="052351864567" /> <value unit="mmol/L" xsi:type= "PQ" value="164" /> <interpretationCode codeSystem="local" code="" / > <referenceRange> <observationRange> <text>135 -145</text> </observationRange> </referenceRange> </ observation> </component> <component> <observation moodCode= "EVN" classCode="OBS"> <templateId root="216.840.1.378773.10.20.22.4.2 " /> <id nullFlavor="NA" /> <code codeSystem="local" code= "2823-3" displayName="Serum or plasma potassium measurement (moles/volume)" /> <statusCode code="completed" /> <effectiveTime value= "266521941242" /> <value unit="mmol/L" xsi:type="PQ" value="3.8" /> <referenceRange> <observationRange> <text>3.6-5.0 </text> </observationRange> </referenceRange> </ observation> </component> <component> <observation moodCode= "EVN" classCode="OBS"> <templateId root="16.840.1.133179.10..22.4.2 " /> <id nullFlavor="NA" /> <code codeSystem="local" code= "2075-0" displayName="Serum or plasma chloride measurement (moles/volume)" /> <statusCode code="completed" /> <effectiveTime value= "329586046483" /> <value unit="mmol/L" xsi:type="PQ" value="133" /> <interpretationCode codeSystem="local" code="" /> < referenceRange> <observationRange> <text>98-107</text> </observationRange> </referenceRange> </observation> </component> <component> <observation moodCode="EVN" classCode ="OBS"> <templateId root="216.840.1.770948.10.20.22.4.2" /> < id nullFlavor="NA" /> <code codeSystem="local" code="2028-05" displayName="Carbon dioxide" /> <statusCode code="completed" /> <effectiveTime value="188843805206" /> <value unit="mmol/L" xsi:type ="PQ" value="26" /> <referenceRange> <observationRange> <text>21-32</text> </observationRange> </ referenceRange> </observation> </component> <component> <observation moodCode="EVN" classCode="OBS"> <templateId root= "2.16.840.1.387197.10.20.22.4.2" /> <id nullFlavor="NA" /> < code codeSystem="local" code="36381-2" displayName="Serum or plasma anion gap determination (moles/volume)" /> <statusCode code="completed" /> <effectiveTime value="126064194848" /> <value unit="mmol/L" xsi: type="PQ" value="5" /> <referenceRange> <observationRange> <text>5-14</text> </observationRange> </ referenceRange> </observation> </component> <component> <observation moodCode="EVN" classCode="OBS"> <templateId root= "2.16.840.1.328925.10.20.22.4.2" /> <id nullFlavor="NA" /> < code codeSystem="local" code="3094-0" displayName="Serum or plasma urea nitrogen measurement (mass/volume)" /> <statusCode code="completed" /> <effectiveTime value="235521391934" /> <value unit="mg/dL" xsi:type="PQ" value="48" /> <interpretationCode codeSystem="local" code ="" /> <referenceRange> <observationRange> < text>7-18</text> </observationRange> </referenceRange> </observation> </component> <component> <observation moodCode="EVN" classCode="OBS"> <templateId root= "2.16.840.1.524710.10..22.4.2" /> <id nullFlavor="NA" /> < code codeSystem="local" code="2160-0" displayName="Serum or plasma creatinine measurement (mass/volume)" /> <statusCode code="completed" /> <effectiveTime value="509404146454" /> <value unit="mg/dL" xsi:type="PQ " value="1.18" /> <referenceRange> <observationRange> <text>0.60-1.30</text> </observationRange> </ referenceRange> </observation> </component> <component> <observation moodCode="EVN" classCode="OBS"> <templateId root= "216.840.1.780776.10..4.2" /> <id nullFlavor="NA" /> < code codeSystem="local" code="3097-3" displayName="Serum or plasma urea nitrogen /creatinine mass ratio" /> <statusCode code="completed" /> < effectiveTime value="370792494132" /> <value unit="" xsi:type="PQ" value="41" /> <referenceRange> <observationRange> <text>NRG</text> </observationRange> </referenceRange> </observation> </component> <component> <observation moodCode="EVN" classCode="OBS"> <templateId root= "2.16.840.1.923797.10..22.4.2" /> <id nullFlavor="NA" /> < code codeSystem="local" code="56158-4" displayName="Serum or plasma creatinine measurement with calculation of estimated glomerular filtration rate" /> <statusCode code="completed" /> <effectiveTime value="471373350073" /> <value unit="" xsi:type="PQ" value=">" /> < referenceRange> <observationRange> <text>NRG</text> </observationRange> </referenceRange> </observation> </component> <component> <observation moodCode="EVN" classCode= "OBS"> <templateId root="2.16.840.1.765899.10.20.22.4.2" /> < id nullFlavor="NA" /> <code codeSystem="local" code="2345-7" displayName="Serum or plasma glucose measurement (mass/volume)" /> < statusCode code="completed" /> <effectiveTime value="900102047974" /> <value unit="mg/dL" xsi:type="PQ" value="99" /> < referenceRange> <observationRange> <text>70-105</text> </observationRange> </referenceRange> </observation> </component> <component> <observation moodCode="EVN" classCode ="OBS"> <templateId root="2.16.840.1.702879.10..22.4.2" /> < id nullFlavor="NA" /> <code codeSystem="local" code="97359-1" displayName="Serum or plasma calcium measurement (mass/volume)" /> < statusCode code="completed" /> <effectiveTime value="251695748599" /> <value unit="mg/dL" xsi:type="PQ" value="7.7" /> < interpretationCode codeSystem="local" code="" /> <referenceRange> <observationRange> <text>8.5-10.1</text> </ observationRange> </referenceRange> </observation> </ component> <component> <observation moodCode="EVN" classCode="OBS"> <templateId root="10.29.840.1.913287.10.20.22.4.2" /> <id nullFlavor="NA" /> <code codeSystem="local" code="1974-10" displayName= "Serum or plasma total bilirubin measurement (mass/volume)" /> < statusCode code="completed" /> <effectiveTime value="391575326035" /> <value unit="mg/dL" xsi:type="PQ" value="0.5" /> < referenceRange> <observationRange> <text>0.1-1.0</text> </observationRange> </referenceRange> </observation > </component> <component> <observation moodCode="EVN" classCode="OBS"> <templateId root="16.840.1.941981.10..22.4.2" /> <id nullFlavor="NA" /> <code codeSystem="local" code="67686" displayName="Serum or plasma alkaline phosphatase measurement (enzymatic activity/volume)" /> <statusCode code="completed" /> < effectiveTime value="972914550496" /> <value unit="U/L" xsi:type="PQ" value="37" /> <interpretationCode codeSystem="local" code="" /> <referenceRange> <observationRange> <text>40-136</ text> </observationRange> </referenceRange> </ observation> </component> <component> <observation moodCode= "EVN" classCode="OBS"> <templateId root="16.840.1.125152.10.20.22.4.2 " /> <id nullFlavor="NA" /> <code codeSystem="local" code= "192" displayName="Serum or plasma aspartate aminotransferase measurement ( enzymatic activity/volume)" /> <statusCode code="completed" /> <effectiveTime value="656472424246" /> <value unit="U/L" xsi:type="PQ " value="25" /> <referenceRange> <observationRange> <text>5-34</text> </observationRange> </referenceRange > </observation> </component> <component> <observation moodCode="EVN" classCode="OBS"> <templateId root= "216.840.1.890202.10..22.4.2" /> <id nullFlavor="NA" /> < code codeSystem="local" code="1742-6" displayName="Serum or plasma alanine aminotransferase measurement (enzymatic activity/volume)" /> < statusCode code="completed" /> <effectiveTime value="129690389320" /> <value unit="U/L" xsi:type="PQ" value="45" /> <referenceRange > <observationRange> <text>0-55</text> </ observationRange> </referenceRange> </observation> </ component> <component> <observation moodCode="EVN" classCode="OBS"> <templateId root="16.840.1.647070.10...4.2" /> <id nullFlavor="NA" /> <code codeSystem="local" code="2885-2" displayName= "Serum or plasma protein measurement (mass/volume)" /> <statusCode code ="completed" /> <effectiveTime value="428263510661" /> <value unit="g/dL" xsi:type="PQ" value="4.6" /> <interpretationCode codeSystem ="local" code="" /> <referenceRange> <observationRange> <text>6.4-8.2</text> </observationRange> </ referenceRange> </observation> </component> <component> <observation moodCode="EVN" classCode="OBS"> <templateId root= "216.840.1.758937.10..22.4.2" /> <id nullFlavor="NA" /> < code codeSystem="local" code="17509-19" displayName="Serum or plasma albumin measurement (mass/volume)" /> <statusCode code="completed" /> <effectiveTime value="812004861668" /> <value unit="g/dL" xsi:type="PQ " value="2.6" /> <interpretationCode codeSystem="local" code="" /> <referenceRange> <observationRange> <text>3.2- 4.5</text> </observationRange> </referenceRange> </ observation> </component> </organizer> </entry> <entry> <organizer moodCode="EVN" classCode="BATTERY"> <templateId root= "2.16.840.1.003380.10.20.22.4.1" /> <id nullFlavor="NA" /> <code codeSystem="local" code="1988-01" displayName="Serum or plasma C reactive protein measurement (mass/volume)" /> <statusCode code="completed" /> <component> <observation moodCode="EVN" classCode="OBS"> < templateId root="2.16.840.1.176054.10.20.22.4.2" /> <id nullFlavor="NA " /> <code codeSystem="local" code="1988-01" displayName="Serum or plasma C reactive protein measurement (mass/volume)" /> <statusCode code="completed" /> <effectiveTime value="184117069512" /> < value unit="mg/dL" xsi:type="PQ" value="5.18" /> <interpretationCode codeSystem="local" code="" /> <referenceRange> < observationRange> <text>0.00-0.50</text> </ observationRange> </referenceRange> </observation> </ component> </organizer> </entry> <entry> <organizer moodCode="EVN" classCode="BATTERY"> <templateId root="216.840.1.909732.10...4.1" /> <id nullFlavor="NA" /> <code codeSystem="local" code="51052-3" displayName="Serum or plasma lithium measurement (moles/volume)" /> < statusCode code="completed" /> <component> <observation moodCode= "EVN" classCode="OBS"> <templateId root="10.29.840.1.579642.10..4.2 " /> <id nullFlavor="NA" /> <code codeSystem="local" code= "00051-8" displayName="BNP level" /> <statusCode code="completed" /> <effectiveTime value="138401784577" /> <value unit="pg/mL" xsi: type="PQ" value="49.5" /> <referenceRange> <observationRange > <text><100.0</text> </observationRange> </ referenceRange> </observation> </component> </organizer> </entry > <entry> <organizer moodCode="EVN" classCode="BATTERY"> <templateId root="16.840.1.374851.10..4.1" /> <id nullFlavor="NA" /> <code codeSystem="local" code="48225-4" displayName="Blood manual differential performed detection" /> <statusCode code="completed" /> <component> <observation moodCode="EVN" classCode="OBS"> <templateId root= "16.840.1.325804.10..22.4.2" /> <id nullFlavor="NA" /> < code codeSystem="local" code="13151-2" displayName="Blood monocytes/100 leukocytes" /> <statusCode code="completed" /> <effectiveTime value="807024976160" /> <value unit="%" xsi:type="PQ" value="3" /> <referenceRange> <observationRange> <text>NRG< /text> </observationRange> </referenceRange> </ observation> </component> <component> <observation moodCode= "EVN" classCode="OBS"> <templateId root="216.840.1.048804.10..22.4.2 " /> <id nullFlavor="NA" /> <code codeSystem="local" code="769 -0" displayName="Manual blood segmented neutrophils/100 leukocytes" /> <statusCode code="completed" /> <effectiveTime value="696493012158" /> <value unit="%" xsi:type="PQ" value="90" /> < referenceRange> <observationRange> <text>NRG</text> </observationRange> </referenceRange> </observation> </component> <component> <observation moodCode="EVN" classCode= "OBS"> <templateId root="2.16.840.1.200655.10..22.4.2" /> < id nullFlavor="NA" /> <code codeSystem="local" code="737-7" displayName ="Manual blood lymphocytes/100 leukocytes" /> <statusCode code= "completed" /> <effectiveTime value="012216707172" /> <value unit="%" xsi:type="PQ" value="7" /> <referenceRange> < observationRange> <text>NRG</text> </observationRange> </referenceRange> </observation> </component> </ organizer> </entry> <entry> <organizer moodCode="EVN" classCode="BATTERY"> <templateId root="2..840.1.840691.10..22.4.1" /> <id nullFlavor= "NA" /> <code codeSystem="local" code="49570-1" displayName="Blood lactic acid measurement (moles/volume)" /> <statusCode code="completed" /> < component> <observation moodCode="EVN" classCode="OBS"> < templateId root="10.29.840.1.710272.07.02.22.4.2" /> <id nullFlavor="NA " /> <code codeSystem="local" code="95806-3" displayName="Blood lactic acid measurement (moles/volume)" /> <statusCode code="completed" /> <effectiveTime value="497614532782" /> <value unit="mmol/L" xsi: type="PQ" value="0.88" /> <referenceRange> <observationRange > <text>0.50-2.00</text> </observationRange> </ referenceRange> </observation> </component> </organizer> </entry > <entry> <organizer moodCode="EVN" classCode="BATTERY"> <templateId root="10.29.840.1.409652.07.02.22.4.1" /> <id nullFlavor="NA" /> <code codeSystem="local" code="37149-3" displayName="Whole blood basic metabolic panel " /> <statusCode code="completed" /> <component> <observation moodCode="EVN" classCode="OBS"> <templateId root= "10.29.840.1.955068.10...4.2" /> <id nullFlavor="NA" /> < code codeSystem="local" code="2951-2" displayName="Serum or plasma sodium measurement (moles/volume)" /> <statusCode code="completed" /> <effectiveTime value="721811926982" /> <value unit="mmol/L" xsi:type= "PQ" value="164" /> <interpretationCode codeSystem="local" code="" / > <referenceRange> <observationRange> <text>135 -145</text> </observationRange> </referenceRange> </ observation> </component> <component> <observation moodCode= "EVN" classCode="OBS"> <templateId root="2.16.840.1.078887.10.20.22.4.2 " /> <id nullFlavor="NA" /> <code codeSystem="local" code= "2823-3" displayName="Serum or plasma potassium measurement (moles/volume)" /> <statusCode code="completed" /> <effectiveTime value= "940318600205" /> <value unit="mmol/L" xsi:type="PQ" value="3.9" /> <referenceRange> <observationRange> <text>3.6-5.0 </text> </observationRange> </referenceRange> </ observation> </component> <component> <observation moodCode= "EVN" classCode="OBS"> <templateId root="2.16.840.1.132716.10.20.22.4.2 " /> <id nullFlavor="NA" /> <code codeSystem="local" code= "2075-0" displayName="Serum or plasma chloride measurement (moles/volume)" /> <statusCode code="completed" /> <effectiveTime value= "580949955179" /> <value unit="mmol/L" xsi:type="PQ" value="132" /> <interpretationCode codeSystem="local" code="" /> < referenceRange> <observationRange> <text>98-107</text> </observationRange> </referenceRange> </observation> </component> <component> <observation moodCode="EVN" classCode ="OBS"> <templateId root="2.16.840.1.303907.10.20.22.4.2" /> < id nullFlavor="NA" /> <code codeSystem="local" code="2028-05" displayName="Carbon dioxide" /> <statusCode code="completed" /> <effectiveTime value="796096058013" /> <value unit="mmol/L" xsi:type ="PQ" value="25" /> <referenceRange> <observationRange> <text>21-32</text> </observationRange> </ referenceRange> </observation> </component> <component> <observation moodCode="EVN" classCode="OBS"> <templateId root= "2.16.840.1.709803.10.20.22.4.2" /> <id nullFlavor="NA" /> < code codeSystem="local" code="54579-2" displayName="Serum or plasma anion gap determination (moles/volume)" /> <statusCode code="completed" /> <effectiveTime value="482677087910" /> <value unit="mmol/L" xsi: type="PQ" value="7" /> <referenceRange> <observationRange> <text>5-14</text> </observationRange> </ referenceRange> </observation> </component> <component> <observation moodCode="EVN" classCode="OBS"> <templateId root= "16.840.1.830510.10.20.22.4.2" /> <id nullFlavor="NA" /> < code codeSystem="local" code="3094-0" displayName="Serum or plasma urea nitrogen measurement (mass/volume)" /> <statusCode code="completed" /> <effectiveTime value="080969921569" /> <value unit="mg/dL" xsi:type="PQ" value="47" /> <interpretationCode codeSystem="local" code ="" /> <referenceRange> <observationRange> < text>7-18</text> </observationRange> </referenceRange> </observation> </component> <component> <observation moodCode="EVN" classCode="OBS"> <templateId root= "216.840.1.160848.10.20.22.4.2" /> <id nullFlavor="NA" /> < code codeSystem="local" code="2160-0" displayName="Serum or plasma creatinine measurement (mass/volume)" /> <statusCode code="completed" /> <effectiveTime value="326767221033" /> <value unit="mg/dL" xsi:type="PQ " value="1.19" /> <referenceRange> <observationRange> <text>0.60-1.30</text> </observationRange> </ referenceRange> </observation> </component> <component> <observation moodCode="EVN" classCode="OBS"> <templateId root= "10.29.840.1.597765.10...4.2" /> <id nullFlavor="NA" /> < code codeSystem="local" code="3097-3" displayName="Serum or plasma urea nitrogen /creatinine mass ratio" /> <statusCode code="completed" /> < effectiveTime value="059463316725" /> <value unit="" xsi:type="PQ" value="39" /> <referenceRange> <observationRange> <text>NRG</text> </observationRange> </referenceRange> </observation> </component> <component> <observation moodCode="EVN" classCode="OBS"> <templateId root= "16.840.1.732428.10.20.22.4.2" /> <id nullFlavor="NA" /> < code codeSystem="local" code="65853-5" displayName="Serum or plasma creatinine measurement with calculation of estimated glomerular filtration rate" /> <statusCode code="completed" /> <effectiveTime value="108607912299" /> <value unit="" xsi:type="PQ" value=">" /> < referenceRange> <observationRange> <text>NRG</text> </observationRange> </referenceRange> </observation> </component> <component> <observation moodCode="EVN" classCode= "OBS"> <templateId root="2.16.840.1.176811.10.20.22.4.2" /> < id nullFlavor="NA" /> <code codeSystem="local" code="2345-7" displayName="Serum or plasma glucose measurement (mass/volume)" /> < statusCode code="completed" /> <effectiveTime value="695367499737" /> <value unit="mg/dL" xsi:type="PQ" value="98" /> < referenceRange> <observationRange> <text>70-105</text> </observationRange> </referenceRange> </observation> </component> <component> <observation moodCode="EVN" classCode ="OBS"> <templateId root="2.16.840.1.162741.10.20.22.4.2" /> < id nullFlavor="NA" /> <code codeSystem="local" code="71582-4" displayName="Serum or plasma calcium measurement (mass/volume)" /> < statusCode code="completed" /> <effectiveTime value="187357914091" /> <value unit="mg/dL" xsi:type="PQ" value="7.7" /> < interpretationCode codeSystem="local" code="" /> <referenceRange> <observationRange> <text>8.5-10.1</text> </ observationRange> </referenceRange> </observation> </ component> </organizer> </entry></section> Encounters ACCT No. Visit Date/Time Discharge Status Pt. Type Provider Facility Loc./Unit Complaint [id number] 06/17/2017 13:00:00 06/17/2017 14:51:00 DIS Emergency Tomas Valenzuela DO NAME CHEO [facility] W.EDS [id number] 09/28/2016 10:28:00 09/28/2016 17:45:00 DIS Emergency Azul FRAZIER, Vishal Martinez [facility] W.LEO [id number] 10/03/2011 13:27:00 Inpatient [id number] 08/05/2017 00:26:00 Document Registration [id number] 03/23/2017 15:49:00 Document Registration [id number] 12/27/2017 16:41:00 12/27/2017 19:35:00 DIS Outpatient IGGY CLARK [facility] ER IV FLUIDS [id number] 12/13/2017 13:02:00 12/13/2017 17:49:00 DIS Outpatient SELIN DUNCAN APRN [facility] ER MENTAL EVAL [id number] 01/02/2018 12:24:00 Document Registration [id number] 08/05/2017 00:26:00 08/05/2017 23:59:59 CLS Emergency Glen,Jose [facility] ED Head pain [id number] 05/07/2017 13:33:00 05/07/2017 23:59:59 CLS Emergency Kali, Korin [facility] ED abd pain [id number] 03/23/2017 15:49:00 03/29/2017 14:50:00 DIS Inpatient Mini,Laney [facility] F8SE ams, leukocytosis [id number] 05/08/2017 05:18:14 Document Registration [id number] 03/30/2017 05:16:25 Document Registration [id number] 03/25/2017 05:16:24 Document Registration [id number] 03/24/2017 05:15:39 Document Registration
[2018-01-02] MEDS ORDERED: NS IV 1000 ML 1,000 ML ONE (15:01)
--- NOTE | 2018-01-02 15:02 | Pulmonary Consultation ---
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 Upon ED arrival Sp02 was 70% and pt failed BiPAP therapy while in ED and was intubated. Pt continue to have severe hypoxia even on ventilator. RT suctioned out copious amounts of sputum. I was called to bedside for emergent bronchoscopy secondary to mucous plugging and persistent respiratory failure even on ventilator. I am consulted for pulmonary/CC management. Allergies and Home Medications Allergies Coded Allergies: Penicillins (Unverified Allergy, Unknown, 01/04/18) Past Itlcdoj-Hkziyf-Pkesha Hx Past Med/Social Hx: Reviewed Nursing Past Med/Soc Hx Patient Social History Smoking Status: Unknown if Ever Smoked Recent Foreign Travel: No Contact w/Someone Who Travel: No Past Medical History Respiratory: No Cardiac: Yes Coronary Artery Disease, High Cholesterol, Hypertension Neurological: Yes Dementia, Stroke, TIA Genitourinary: Yes Prostate Problems Gastrointestinal: No Musculoskeletal: No Integumentary: No Family Medical History Reviewed Nursing Family Hx No Pertinent Family Hx Review of Systems Time Seen by Provider: 08:58 Constitutional: Sweats, Weakness, Malaise ENT: Nose congestion Respiratory: Shortness of breath, SOB with excertion, Wheezing, Sputum Gastrointestinal: Nausea Exam Exam Vital Signs Date Time Temp Pulse Resp B/P (MAP) Pulse Ox O2 Delivery O2 Flow Rate FiO2 01/02/18 12:29 81 18 97 100 General Appearance: WD/WN, Severe Distress HEENT: PERRL/EOMI, Other (mucous membranes dry with mucus within the mouth.) Neck: Non Tender, Supple Respiratory: Crackles, Decreased Breath Sounds, Expiration, Inspiration, Respiratory Distress Cardiovascular: Regular Rate, Rhythm, No Murmur Extremity: Normal Range of Motion, Non Tender, Pedal Edema Neurologic/Psychiatric: Other (unresponsive with occasional spontaneous cough.) Results Lab Laboratory Tests 01/02/18 12:21 01/02/18 13:06 Assessment/Plan Assessment/Plan Severe sepsis secondary to pneumonia -IVF -mosquera culture -start Vanco and Zosyn -Continue Ventilatory support and check ABG once pt is in the ICU Septic shock -IVF -Levophed - Continue to titrate for SBP >90 Hypernatremia - probably secondary to dehydration -Will monitor close Acute respiratory failure with mucous plugging and pneumonia s/p bronchoscopy -Pt had copious amounts of sputum with bronchoscopy -Will have RT place pt on heated circuit and do albuterol/mucomyst Q 4 hrs -CPT with SVNereida 255 ANUJA REYNOLDS DO Jan 02, 2018 15:02
--- NOTE | 2018-01-02 15:09 | Pulmonary Procedures ---
Pulmonary Procedures Date of Procedure Date of Service: Jan 02, 2018 Bronch Bronchoscopy with washings Preop DX mucous plugging Postop DX: same - pt had copious amounts of thick white sputum bilaterally. Complications: none After informed consent obtained and formal time out pt was sedated using Fentanyl and Versed. Bronchoscope was advanced through ET tube . An anatomical tour was undertaken down to the segmental bronchi bilaterally. No endobronchial lesions noted. Copious amounts of thick white sputum bilaterally. bilateral washing was obtained transbronchial washes. Pt tolerated procedure well. No complications noted. Stat CXR is pending. ANUJA REYNOLDS DO Jan 02, 2018 15:09
--- NOTE | 2018-01-02 15:27 | Diagnostic Imaging Report ---
INDICATION: Post bronchoscopy. EXAMINATION: Single view of the chest was obtained. FINDINGS: Portable chest shows normal heart size and vascularity. The lungs are clear. There is no effusion or pneumothorax. The ET tube is in good position. An OG tube is present. IJ line tip is in the SVC. IMPRESSION: There has been improved aeration of the left lower lobe with resolution of the left lower lobe atelectasis since the earlier study. Dictated by: Dictated on workstation # [id number]
[2018-01-02] MEDS ORDERED: NS IV 1000 ML 2,721.54 ML IV PRN (16:45)
[2018-01-02] MEDS ORDERED: VANCOMYCIN 1 GM/NS 250 ML IVPB IV NR ×2 (16:50)
[2018-01-02] MEDS ORDERED: VASOPRESSIN 40 UNITS/NS 100 ML DRIP IV SCH ×2 (17:00)
[2018-01-02] MEDS ORDERED: PHENYLEPHRINE 10 MG/NS 250 ML IV SCH ×2 (17:00)
[2018-01-02] MEDS: PROPOFOL DRIP (ICU) 100 ML IV SCH ×3 (17:33→21:49)
[2018-01-02] MEDS: NS IV 1000 ML 1,000 ML IV SCH ×2 (17:38→21:41)
[2018-01-02] MEDS ORDERED: DIVA125T3 PO ×3 (17:41)
[2018-01-02] MEDS ORDERED: ACET-93 PO (17:41)
[2018-01-02] MEDS ORDERED: FOLI0.4T2 PO (17:41)
[2018-01-02] MEDS ORDERED: ASPI-983 PO (17:41)
[2018-01-02] MEDS ORDERED: ALBU2.5V4 IH (17:41)
[2018-01-02] MEDS ORDERED: MAGN400O7 PO (17:41)
[2018-01-02] MEDS: NOREPINEPHRINE 4 MG in NS (IVPB) 250 ML IV SCH (17:41)
[2018-01-02] MEDS ORDERED: RAME8TAB18 PO (17:41)
[2018-01-02] MEDS ORDERED: NYST1000 PO (17:41)
[2018-01-02] MEDS ORDERED: TERA2CAP4 PO (17:41)
[2018-01-02] MEDS ORDERED: CNC1KV IJ (17:41)
[2018-01-02] MEDS: aCETylcysteine 20% (MUCOMYST) 30ML SOLN VIAL INH SCH ×2 (18:37→22:29)
[2018-01-02] MEDS: RT-ALBUTEROL SULF 2.5 MG/3 ML PRE-MIX VIAL INH SCH ×2 (18:37→22:29)
[2018-01-02 18:42] LABS: ABG BASE EXCESS -5.1 MMOL/L (-2.5-2.5); ABG OXYGEN SATURATION 99 % (94-100); ABG PCO2 42 MMHG (35-45); ABG PO2 140 MMHG (79-93); ABG TCO2 21.5 MMOL/L (21.0-31.0)
[2018-01-02 18:43] LABS: ALLENS TEST YES-POS; INSPIRED O2 65%; PATIENT TEMP 98.4; VENTILATOR YES
[2018-01-02] MEDS: PIPERACILLIN SODIUM/TAZOBACTAM 4.5 GM in NS (IVPB) 100 ML IV SCH (20:16)
[2018-01-02 20:20] LABS: BILIRUBIN,URINE NEGATIVE (NEGATIVE); CLARITY,URINE SLIGHTLY CLOUDY; COLOR,URINE AMBER; GLUCOSE, URINE (UA) NEGATIVE (NEGATIVE); KETONES,URINE 1+ (NEGATIVE); LEUKOCYTE ESTERASE ,URINE 3+ (NEGATIVE); NITRITE,URINE NEGATIVE (NEGATIVE); PH,URINE 5 (5-9); PROTEIN,URINE 2+ (NEGATIVE); UROBILINOGEN,URINE 1 MG/DL (NORMAL)
[2018-01-02 20:29] LABS: BACTERIA,URINE FEW /HPF; SQUAMOUS EPITHELIAL CELL,UR 0-2 /HPF; WBC,URINE 25-50 /HPF
[2018-01-02 20:39] LABS: CALCIUM 7.9 MG/DL (8.5-10.1); CREATININE SERUM 1.46 MG/DL (0.60-1.30); MAGNESIUM 2.3 MG/DL (1.8-2.4); PHOSPHORUS 4.9 MG/DL (2.3-4.7); POTASSIUM 3.9 MMOL/L (3.6-5.0)
[2018-01-02] MEDS ORDERED: SODIUM BICARB 8.4% 50 MEQ/50 ML (ABBOTT) SYR ONE (21:19)
[2018-01-02] MEDS ORDERED: ALBUMIN 5% 12.5 GM/250 ML 500 ML IV ONE (21:20)
[2018-01-02] MEDS ORDERED: SODIUM BICARB 8.4% 50 MEQ/50 ML (ABBOTT) SYR IV ONE ×2 (21:30)
[2018-01-02] MEDS: ALBUMIN 5% 12.5 GM/250 ML 250 ML IV SCH ×2 (21:32→22:33)
[2018-01-03] VITALS (32 sets, daily range): BP systolic 90–160; BP diastolic 64–95
[2018-01-03 00:26] LABS: ALBUMIN 3.1 GM/DL (3.2-4.5); CALCIUM 7.7 MG/DL (8.5-10.1); CREATININE SERUM 1.4 MG/DL (0.60-1.30); POTASSIUM 3.6 MMOL/L (3.6-5.0)
[2018-01-03] MEDS: NS IV 1000 ML 1,000 ML IV SCH ×2 (01:23→04:32)
[2018-01-03] MEDS: aCETylcysteine 20% (MUCOMYST) 30ML SOLN VIAL INH SCH ×6 (02:00→22:52)
[2018-01-03] MEDS: RT-ALBUTEROL SULF 2.5 MG/3 ML PRE-MIX VIAL INH SCH ×2 (02:00→06:35)
[2018-01-03] MEDS: PROPOFOL DRIP (ICU) 100 ML IV SCH ×2 (02:49→08:39)
[2018-01-03 03:35] LABS: ABG BASE EXCESS -4.2 MMOL/L (-2.5-2.5); ABG OXYGEN SATURATION 99 % (94-100); ABG PCO2 40 MMHG (35-45); ABG PO2 150 MMHG (79-93); ABG TCO2 21.9 MMOL/L (21.0-31.0)
[2018-01-03 03:39] LABS: ABG PH 7.33 (7.37-7.43)
[2018-01-03 03:40] LABS: ALLENS TEST YES-POS; INSPIRED O2 40%; PATIENT TEMP 98.8; VENTILATOR YES
[2018-01-03] MEDS ORDERED: NS IV 500 ML 500 ML ONE (03:54)
[2018-01-03] MEDS ORDERED: SODIUM BICARB 8.4% 50 MEQ/50 ML (ABBOTT) SYR ONE (03:54)
[2018-01-03 03:57] LABS: BASOPHILS % (AUTO) 0 % (0-10); EOSINOPHILS % (AUTO) 0 % (0-10); HEMATOCRIT 42 % (40-54); HEMOGLOBIN 13.1 G/DL (13.3-17.7); LYMPHOCYTES # (AUTO) 0.8 X 10^3 (1.0-4.0); LYMPHOCYTES % (AUTO) 3 % (12-44); MEAN CORPUSCULAR HEMOGLOBIN 30 PG (25-34); MEAN CORPUSCULAR HGB CONC 31 G/DL (32-36); MEAN CORPUSCULAR VOLUME 97 FL (80-99); MEAN PLATELET VOLUME 10.7 FL (7.4-10.4); MONOCYTES # (AUTO) 1.8 X 10^3 (0.0-1.0); MONOCYTES % (AUTO) 7 % (0-12); NEUTROPHILS # (AUTO) 24.2 X 10^3 (1.8-7.8); NEUTROPHILS % (AUTO) 90 % (42-75); PLATELET COUNT 105 10^3/uL (130-400); RED BLOOD COUNT 4.35 10^6/uL (4.35-5.85); RED CELL DISTRIBUTION WIDTH 13.9 % (10.0-14.5); WHITE BLOOD COUNT 26.9 10^3/uL (4.3-11.0)
[2018-01-03 04:15] LABS: CALCIUM 7.8 MG/DL (8.5-10.1); CREATININE SERUM 1.38 MG/DL (0.60-1.30); MAGNESIUM 2.4 MG/DL (1.8-2.4); PHOSPHORUS 3.7 MG/DL (2.3-4.7); POTASSIUM 3.6 MMOL/L (3.6-5.0)
[2018-01-03] MEDS ORDERED: SODIUM BICARB 8.4% 50 MEQ/50 ML (ABBOTT) SYR IV ONE (04:15)
[2018-01-03] MEDS ORDERED: NS IV 500 ML 500 ML IV SCH (04:15)
[2018-01-03] MEDS: VANCOMYCIN 1500 MG/NS 500 ML IVPB IV SCH ×4 (04:23→18:44)
[2018-01-03] MEDS: PIPERACILLIN SODIUM/TAZOBACTAM 4.5 GM in NS (IVPB) 100 ML IV SCH ×3 (04:23→20:14)
[2018-01-03] MEDS: NOREPINEPHRINE 4 MG in NS (IVPB) 250 ML IV SCH ×2 (04:32→20:08)
[2018-01-03] MEDS: KCL 20 MEQ TAB (K-DUR) PO SCH (04:35)
[2018-01-03] MEDS: MAGNESIUM 1 GM/100 ML IVPB 100 ML IV SCH (04:35)
--- NOTE | 2018-01-03 05:09 | Pulmonary Progress Note ---
Subjective Time Seen by Provider: 05:20 Subjective/Events-last exam PT is doing better this AM on vent. Focused Exam Lactate Level 01/02/18 12:37: Lactic Acid Level 0.88 01/02/18 23:55: Lactic Acid Level 1.43 Exam Exam Vital Signs Date Time Temp Pulse Resp B/P (MAP) Pulse Ox O2 Delivery O2 Flow Rate FiO2 01/03/18 04:00 98.0 30.00 01/03/18 04:00 97 Mechanical Ventilator 30 01/03/18 03:49 81 23 98 40 01/03/18 02:49 98.8 67 20 90/64 98 Mechanical Ventilator 40.00 01/03/18 02:37 Mechanical Ventilator 40.00 01/03/18 02:01 67 20 98 50 01/03/18 02:01 Mechanical Ventilator 01/03/18 02:00 68 21 90/64 (73) 98 Mechanical Ventilator 65.00 01/03/18 01:00 80 01/03/18 00:52 75 24 100/67 (78) 99 Mechanical Ventilator 65.00 01/03/18 00:10 98.8 01/03/18 00:00 99 Mechanical Ventilator 50 01/02/18 23:50 68 22 97 50 01/02/18 23:00 Mechanical Ventilator 50.00 01/02/18 23:00 67 21 104/75 (85) 98 Mechanical Ventilator 65.00 01/02/18 22:29 62 22 98 60 01/02/18 22:00 64 17 99/67 (78) 100 Mechanical Ventilator 65.00 01/02/18 21:49 98.0 82 18 123/85 99 Mechanical Ventilator 60.00 01/02/18 21:00 75 23 111/68 (82) 99 Mechanical Ventilator 65.00 01/02/18 20:35 70 20 97 60 01/02/18 20:00 99 Mechanical Ventilator 60 01/02/18 20:00 85 24 124/90 (101) 99 Mechanical Ventilator 65.00 01/02/18 19:49 98.0 82 18 123/85 (98) 99 Mechanical Ventilator 60.00 01/02/18 19:00 83 01/02/18 18:37 68 19 97 65 01/02/18 18:00 68 18 109/74 (86) 97 Mechanical Ventilator 65.00 01/02/18 17:55 75 01/02/18 17:37 71 26 112/76 97 65.00 01/02/18 17:33 112/76 01/02/18 17:01 96 65 01/02/18 17:00 69 28 106/75 (85) 96 Mechanical Ventilator 65.00 01/02/18 16:02 74 18 98 65 01/02/18 16:00 74 26 122/70 (87) 98 Mechanical Ventilator 65.00 01/02/18 15:50 98.2 75 26 112/61 (78) 98 Mechanical Ventilator 65.00 01/02/18 15:35 75 16 11/58 98 Mechanical Ventilator 01/02/18 14:59 80 98 90 01/02/18 14:30 18 01/02/18 12:29 81 18 97 100 01/02/18 11:19 97 Mechanical Ventilator 100 01/02/18 11:19 99.5 106 8 133/92 (106) 89 NIV/CPAP I & O 01/03/18 07:00 Intake Total 4500 ml Output Total 245 ml Balance 4255 ml General Appearance: No Apparent Distress, WD/WN, Other (pt is sedated on vent) HEENT: PERRL/EOMI, Other (mucous membranes dry with mucus within the mouth.) Neck: Non Tender, Supple Respiratory: No Accessory Muscle Use, No Respiratory Distress, Crackles, Decreased Breath Sounds Cardiovascular: Regular Rate, Rhythm, No Murmur Capillary Refill: Less Than 3 Seconds Extremity: Normal Range of Motion, Non Tender, Pedal Edema Skin: Normal Color, Warm/Dry Results Lab Laboratory Tests 01/02/18 12:21 01/02/18 13:06 01/02/18 20:10 01/02/18 23:55 01/03/18 03:30 Assessment/Plan Assessment/Plan Severe sepsis secondary to pneumonia -IVF -mosquera culture -Vanco and Zosyn -Off Levophed Hypernatremia - probably secondary to dehydration -Will monitor close -Start 250cc of free water per OJ tube -Change IVF to 1/2 NS -Repeat chem at 930 Acute respiratory failure with mucous plugging and pneumonia s/p bronchoscopy -Pt had copious amounts of sputum with bronchoscopy -Will have RT place pt on heated circuit and do albuterol/mucomyst Q 4 hrs -CPT with SVNs -Continue ventilator support today will start to wean tomorrow. -Add precedex and wean down diprivan -Start TF ?UGIB -check gastric occcult -start TF -protonix 40mg IV Q12 Hx of dementia from ECF 233 ANUJA REYNOLDS DO Jan 03, 2018 05:09
[2018-01-03] MEDS ORDERED: DEXMEDETOMIDINE INJECTION 200 MCG in NS (IVPB) 50 ML IV SCH (05:15)
[2018-01-03] MEDS ORDERED: NS IV 500 ML 500 ML IV ONE (05:30)
[2018-01-03 05:43] LABS: OCCULT BLOOD,GASTRIC FLUID NEGATIVE (NEGATIVE)
[2018-01-03] MEDS: D5 1/2 NS W/KCL 20 MEQ/L 1,000 ML IV SCH ×2 (05:47→16:05)
[2018-01-03] MEDS: POTASSIUM CL 10MEQ/50ML IVPB 50 ML IV SCH ×3 (05:51→06:51)
[2018-01-03] MEDS ORDERED: RT-ALBUTEROL/IPRATROPIUM 3 ML (DUONEB) VIAL INH PRN (07:00)
--- NOTE | 2018-01-03 07:30 | History & Physicial ---
History of Present Illness History of Present Illness Reason for visit/HPI Patient resident of shelter. Patient's pulse ox went down to 70. Patient has dementia. Patient on ventilator now. Patient short of breath and acute mental status changes. Patient obtunded in the emergency room. Date of Admission Jan 02, 2018 at 14:39 Time Seen by Provider: 07:15 I consulted on this patient on 01/03/18 07:25 Attending Physician Bessy Adler DO Admitting Physician Ace Palomo DO Consult Allergies and Home Medications Allergies Uncoded Allergies: PCN (Allergy, Unknown, 01/02/18) Home Medications Acetaminophen 500 Mg Tablet, 500 MG PO Q6H PRN for PAIN-MILD, (Reported) MAY ALSO BE GIVEN FOR ELEVATED TEMPERATURE Albuterol Sulfate 2.5 Mg/3 Ml Vial.neb, 2.5 MG IH TID, (Reported) STARTED 12/28/17 FOR A 7 DAY THERAPY Aspirin 81 Mg Tablet.dr, 81 MG PO DAILY, (Reported) Cyanocobalamin 1,000 Mcg/Ml Inj, 1,000 MCG IJ MONTHLY, (Reported) Divalproex Sodium 125 Mg Tablet.dr, 250 MG PO IN THE AFTERNOON, (Reported) Divalproex Sodium 125 Mg Tablet.dr, 250 MG PO DAILY, (Reported) Divalproex Sodium 125 Mg Tablet.dr, 750 MG PO HS, (Reported) TAKES 6 (125 MG) TABLETS Folic Acid 0.4 Mg Tablet, 0.4 MG PO DAILY, (Reported) Magnesium Hydroxide 400 Mg/5 Ml Oral.susp, 2,400 MG PO DAILY PRN for CONSTIPATION-7TH LINE, (Reported) Nystatin 100,000 Unit/1 Ml Oral.susp, 500,000 UNITS PO QID, (Reported) SWISH AND SWALLOW 5 ML OF A (100,000 UNIT/1ML) / STARTED 12/28/17, TO BE TAKEN UNTIL 01/06/18 Ramelteon 8 Mg Tablet, 8 MG PO HS, (Reported) Terazosin HCl 2 Mg Capsule, 2 MG PO HS, (Reported) Patient Home Medication List Home Medication List Reviewed: No Past Sghboww-Vcahaj-Glzyia Hx Patient Social History Alcohol Use: Denies Use Recreational Drug Use: No Smoking Status: Unknown if Ever Smoked Physical Abuse Screen: No Sexual Abuse: No Recent Foreign Travel: No Contact w/other who traveled: No Recent Hopitalizations: No Recent Infectious Disease Expo: No Seasonal Allergies Seasonal Allergies: No Respiratory No Cardiovascular Yes Coronary Artery Disease, High Cholesterol, Hypertension Neurological Yes Dementia, Stroke, TIA Genitourinary Yes Prostate Problems Gastrointestinal No Musculoskeletal No Endocrine History of Endocrine Disorders: No HEENT History of HEENT Disorders: No Cancer No Psychosocial History of Psychiatric Problem: No Integumentary History of Skin or Integumenta: No Family Medical History Significant Family History: No Pertinent Family Hx Constitutional: malaise, weakness, other (Patient on ventilator) EENTM: no symptoms reported Respiratory: other (Hypoxia) Cardiovascular: no symptoms reported Gastrointestinal: no symptoms reported Genitourinary: no symptoms reported Physical Exam Vital Signs Vital Signs - First Documented 01/02/18 01/02/18 11:19 15:50 Temp 99.5 Pulse 106 Resp 8 B/P (MAP) 133/92 (106) Pulse Ox 89 O2 Delivery NIV/CPAP O2 Flow Rate 65.00 FiO2 100 Capillary Refill : Less Than 3 Seconds General Appearance: Other (Patient on ventilator) HEENT: Normal ENT Inspection Neck: Normal Inspection Respiratory: No Accessory Muscle Use, Other (Patient on vent) Cardiovascular: Regular Rate, Rhythm Gastrointestinal: Non Tender, Soft Assessment/Plan Assessment and Plan Severe sepsis secondary to pneumonia. Mucous plugs. Septic shock. Hypernatremia. Acute respiratory failure with mucous plug. Dementia Obtunded Admission Diagnosis Admission Status: Inpatient Order (span 2 midnights) Reason for Inpatient Admission: Pulse ox 70. Obtunded. Mucous plugging. Dementia. Clinical Quality Measures DVT/VTE Risk/Contraindication: Risk Factor Score Per Nursin RFS Level Per Nursing on Admit: 4+=Very High ACE PALOMO DO Jan 03, 2018 07:30
--- NOTE | 2018-01-03 07:40 | Diagnostic Imaging Report ---
INDICATION: Dyspnea. Comparison made with prior examination 01/02/2018 FINDINGS: The heart size is normal. Lines and tubes are in satisfactory position. There is no pleural effusion, pneumothorax or pneumonia. IMPRESSION: No acute cardiopulmonary abnormality. Dictated by: Dictated on workstation # [id number]
[2018-01-03] MEDS: ENOXAPARIN 40 MG/0.4 ML (LOVENOX) SYR SC SCH (09:10)
[2018-01-03] MEDS: PANTOPRAZOLE 40 MG/10 ML (PROTONIX) VIAL IV SCH ×2 (09:10→20:14)
[2018-01-03] MEDS: RT-ALBUTEROL/IPRATROPIUM 3 ML (DUONEB) VIAL INH SCH ×4 (10:21→22:52)
--- NOTE | 2018-01-03 10:36 | Speech Therapy Progress Note ---
Therapy Progress Note Speech pathology received dysphagia evaluation for patient and chart reviewed. The patient is currently intubated. Please reconsult speech pathology when patient is appropriate. THAO TREVIZO Jan 03, 2018 10:36
[2018-01-03 11:14] LABS: ALANINE AMINOTRANSFERASE 34 U/L (0-55); ALBUMIN 2.9 GM/DL (3.2-4.5); ALKALINE PHOSPHATASE 36 U/L (40-136); BILIRUBIN,TOTAL 0.4 MG/DL (0.1-1.0); BUN/CREATININE RATIO 41; CALCIUM 7.8 MG/DL (8.5-10.1); CARBON DIOXIDE 24 MMOL/L (21-32); CHLORIDE 132 MMOL/L (98-107); CREATININE SERUM 1.11 MG/DL (0.60-1.30); GFR ESTIMATED > 60; GLUCOSE 144 MG/DL (70-105); POTASSIUM 3.5 MMOL/L (3.6-5.0)
[2018-01-03 11:18] LABS: SODIUM 161 MMOL/L (135-145)
[2018-01-03] MEDS ORDERED: TROUGH ORDER-PHARMACY XX NR (16:00)
[2018-01-04] VITALS (37 sets, daily range): BP systolic 120–187; BP diastolic 63–105
[2018-01-04] MEDS: RT-ALBUTEROL/IPRATROPIUM 3 ML (DUONEB) VIAL INH SCH ×6 (02:30→23:11)
[2018-01-04] MEDS: aCETylcysteine 20% (MUCOMYST) 30ML SOLN VIAL INH SCH ×6 (02:30→23:11)
[2018-01-04 03:13] LABS: BASOPHILS % (AUTO) 0 % (0-10); EOSINOPHILS # (AUTO) 0.2 10^3/uL (0.0-0.3); EOSINOPHILS % (AUTO) 1 % (0-10); HEMATOCRIT 41 % (40-54); LYMPHOCYTES % (AUTO) 7 % (12-44); MEAN CORPUSCULAR HEMOGLOBIN 30 PG (25-34); MEAN CORPUSCULAR HGB CONC 32 G/DL (32-36); MEAN CORPUSCULAR VOLUME 95 FL (80-99); MEAN PLATELET VOLUME 10.9 FL (7.4-10.4); MONOCYTES # (AUTO) 0.9 X 10^3 (0.0-1.0); MONOCYTES % (AUTO) 6 % (0-12); NEUTROPHILS # (AUTO) 12.3 X 10^3 (1.8-7.8); NEUTROPHILS % (AUTO) 86 % (42-75); PLATELET COUNT 99 10^3/uL (130-400); RED BLOOD COUNT 4.34 10^6/uL (4.35-5.85); RED CELL DISTRIBUTION WIDTH 13.9 % (10.0-14.5); WHITE BLOOD COUNT 14.3 10^3/uL (4.3-11.0)
[2018-01-04 03:20] LABS: ABG BASE EXCESS -4.1 MMOL/L (-2.5-2.5); ABG OXYGEN SATURATION 99 % (94-100); ABG PCO2 34 MMHG (35-45); ABG PH 7.38 (7.37-7.43); ABG PO2 86 MMHG (79-93); ABG TCO2 21.3 MMOL/L (21.0-31.0)
[2018-01-04 03:22] LABS: ALLENS TEST YES-POS; INSPIRED O2 21%; PATIENT TEMP 97.4; VENTILATOR YES
[2018-01-04] MEDS: D5 1/2 NS W/KCL 20 MEQ/L 1,000 ML IV SCH ×4 (03:27→20:11)
[2018-01-04 03:29] LABS: BUN/CREATININE RATIO 43; CALCIUM 8.4 MG/DL (8.5-10.1); CARBON DIOXIDE 21 MMOL/L (21-32); CHLORIDE 132 MMOL/L (98-107); CREATININE SERUM 0.88 MG/DL (0.60-1.30); GFR ESTIMATED > 60; GLUCOSE 151 MG/DL (70-105); MAGNESIUM 2.4 MG/DL (1.8-2.4); PHOSPHORUS 1.7 MG/DL (2.3-4.7); POTASSIUM 3.6 MMOL/L (3.6-5.0); SODIUM 159 MMOL/L (135-145)
[2018-01-04] MEDS: KCL 20 MEQ TAB (K-DUR) PO SCH (04:07)
[2018-01-04] MEDS: PIPERACILLIN SODIUM/TAZOBACTAM 4.5 GM in NS (IVPB) 100 ML IV SCH ×3 (04:40→22:03)
[2018-01-04] MEDS ORDERED: TROUGH ORDER-PHARMACY XX NR ×2 (06:00→16:00)
--- NOTE | 2018-01-04 06:36 | Pulmonary Progress Note ---
Subjective Time Seen by Provider: 06:48 Subjective/Events-last exam PT has been off Diprivan since yesterday. He is on low dose Precedex Focused Exam Lactate Level 01/02/18 12:37: Lactic Acid Level 0.88 01/02/18 23:55: Lactic Acid Level 1.43 Exam Exam Vital Signs Date Time Temp Pulse Resp B/P (MAP) Pulse Ox O2 Delivery O2 Flow Rate FiO2 01/04/18 05:00 49 18 153/73 (99) 98 Mechanical Ventilator 21.00 01/04/18 04:45 50 24 98 21 01/04/18 04:00 97 Mechanical Ventilator 21 01/04/18 04:00 60 19 162/71 (101) 99 Mechanical Ventilator 21.00 01/04/18 04:00 97.4 Mechanical Ventilator 21.00 01/04/18 03:00 44 17 165/87 (113) 97 Mechanical Ventilator 21.00 01/04/18 02:30 41 19 97 21 01/04/18 02:00 43 20 164/88 (113) 97 Mechanical Ventilator 21.00 01/04/18 01:00 53 19 150/82 (104) 97 Mechanical Ventilator 21.00 01/04/18 01:00 53 01/04/18 00:17 96.9 Mechanical Ventilator 21.00 01/04/18 00:15 45 19 163/72 (102) 96 Mechanical Ventilator 21.00 01/04/18 00:04 51 20 95 21 01/04/18 00:00 54 24 171/63 (99) 95 Mechanical Ventilator 21.00 01/04/18 00:00 97 Mechanical Ventilator 21 01/03/18 23:00 54 26 160/85 (110) 96 Mechanical Ventilator 21.00 01/03/18 22:53 58 20 97 21 01/03/18 22:00 53 27 146/72 (96) 97 Mechanical Ventilator 21.00 01/03/18 21:00 47 25 147/79 (101) 97 Mechanical Ventilator 21.00 01/03/18 20:00 48 20 96 21 01/03/18 20:00 98 Mechanical Ventilator 21 01/03/18 20:00 48 26 153/85 (107) 96 Mechanical Ventilator 21.00 01/03/18 19:30 98.5 Mechanical Ventilator 21.00 01/03/18 19:00 47 28 147/77 (100) 95 Mechanical Ventilator 21.00 4/23/18 19:00 47 01/03/18 18:44 47 20 95 21 01/03/18 18:00 47 26 147/74 (98) 95 Mechanical Ventilator 21.00 01/03/18 17:00 49 27 144/74 (97) 95 Mechanical Ventilator 21.00 01/03/18 16:43 49 20 94 21 01/03/18 16:00 97 Mechanical Ventilator 30 01/03/18 16:00 61 25 133/70 (91) 94 Mechanical Ventilator 21.00 01/03/18 15:00 57 24 137/71 (93) 94 Mechanical Ventilator 21.00 01/03/18 14:09 54 22 94 21 01/03/18 14:00 54 16 122/67 (85) 95 Mechanical Ventilator 21.00 01/03/18 13:00 57 01/03/18 13:00 56 23 131/69 (89) 95 Mechanical Ventilator 21.00 01/03/18 12:00 97 Mechanical Ventilator 30 01/03/18 12:00 99.7 Mechanical Ventilator 21.00 01/03/18 12:00 66 23 119/66 (83) 94 Mechanical Ventilator 21.00 01/03/18 11:00 67 25 117/66 (83) 97 Mechanical Ventilator 21.00 01/03/18 10:21 51 21 96 21 01/03/18 10:00 67 24 160/74 (102) 97 Mechanical Ventilator 21.00 01/03/18 09:00 63 20 134/73 (93) 96 Mechanical Ventilator 21.00 01/03/18 08:39 120/69 01/03/18 08:29 70 23 93 21 01/03/18 08:00 71 21 115/64 (81) 97 Mechanical Ventilator 21.00 01/03/18 08:00 97 Mechanical Ventilator 30 01/03/18 07:00 71 13 140/85 (103) 95 Mechanical Ventilator 21.00 01/03/18 07:00 71 01/03/18 06:35 67 22 99 30 I & O 01/04/18 07:00 Intake Total 520 ml Output Total 750 ml Balance -230 ml General Appearance: Mild Distress, Other (Patient on ventilator and sedated. ) HEENT: Normal ENT Inspection Neck: Normal Inspection Respiratory: No Accessory Muscle Use, Decreased Breath Sounds, Other (Patient on vent) Cardiovascular: Regular Rate, Rhythm Capillary Refill: Less Than 3 Seconds Extremity: Normal Range of Motion, Non Tender, Pedal Edema Skin: Normal Color, Warm/Dry Results Lab Laboratory Tests 01/02/18 12:21 01/02/18 13:06 01/02/18 20:10 01/02/18 23:55 01/03/18 03:30 01/03/18 10:44 01/04/18 03:10 Assessment/Plan Assessment/Plan Severe sepsis secondary to pneumonia -IVF -mosquera culture -Vanco and Zosyn -Off Levophed Hypernatremia - probably secondary to dehydration -Will monitor close -250cc of free water per OG tube Q6 -IVF D5 1/2 NS with 20 kcl increase to 150cc/hr Acute respiratory failure with mucous plugging and pneumonia s/p bronchoscopy -Pt had copious amounts of sputum with bronchoscopy - heated circuit and do albuterol/mucomyst Q 4 hrs -CPT with SVNs -Pt is still not responsive and has been off diprivan since yesterday. Will d /c precedex . -Check TSH -TF ?UGIB -check gastric occcult -start TF -protonix 40mg IV Q12 Hypophos -Will give 30mmol of KPhos Hx of dementia from ECF 30 min spent with patient and medical team. Critical Care: Critically Ill Patient Time spent with patient (mins): 30 ANUJA REYNOLDS DO Jan 04, 2018 06:36
[2018-01-04] MEDS ORDERED: POTASSIUM PHOSPHATE INJ 30 MM in NS (IVPB) 250 ML IV NR (06:45)
[2018-01-04] MEDS ORDERED: ETOMIDATE IV SOLN 20 MG/10 ML VIAL IV ONE (06:49)
[2018-01-04] MEDS ORDERED: MIDAZOLAM 2 MG/2 ML (VERSED) VIAL INJ ONE (06:49)
[2018-01-04] MEDS ORDERED: fentaNYL INJECTION 100 MCG/2 ML AMP INJ ONE (06:49)
[2018-01-04] MEDS ORDERED: ROCURONIUM 10 MG/ML 5 ML SYRINGE IV ONE (06:51)
[2018-01-04] MEDS ORDERED: SUCCINYLCHOLINE INJ 100 MG/5 ML SYR INJ ONE (06:51)
[2018-01-04] MEDS ORDERED: VANCOMYCIN 1500 MG/NS 500 ML IVPB IV SCH ×2 (07:00)
--- NOTE | 2018-01-04 07:29 | Progress Note (SOAP) ---
Subjective Time Seen by Provider: 07:25 Subjective/Events-last exam Patient nonresponsive. Patient still on ventilator. Chest x-ray yesterday looked okay. Sepsis. Pneumonia. Hypernatremia. Dementia. Acute respiratory failure with mucous plugging and pneumonia Focused Exam Lactate Level 01/02/18 12:37: Lactic Acid Level 0.88 01/02/18 23:55: Lactic Acid Level 1.43 Objective Exam Vital Signs Date Time Temp Pulse Resp B/P (MAP) Pulse Ox O2 Delivery O2 Flow Rate FiO2 01/04/18 06:49 59 20 98 21 01/04/18 06:00 49 26 156/86 (109) 98 Mechanical Ventilator 21.00 01/04/18 05:00 49 18 153/73 (99) 98 Mechanical Ventilator 21.00 01/04/18 04:45 50 24 98 21 01/04/18 04:00 97 Mechanical Ventilator 21 01/04/18 04:00 60 19 162/71 (101) 99 Mechanical Ventilator 21.00 01/04/18 04:00 97.4 Mechanical Ventilator 21.00 01/04/18 03:00 44 17 165/87 (113) 97 Mechanical Ventilator 21.00 01/04/18 02:30 41 19 97 21 01/04/18 02:00 43 20 164/88 (113) 97 Mechanical Ventilator 21.00 01/04/18 01:00 53 19 150/82 (104) 97 Mechanical Ventilator 21.00 01/04/18 01:00 53 01/04/18 00:17 96.9 Mechanical Ventilator 21.00 01/04/18 00:15 45 19 163/72 (102) 96 Mechanical Ventilator 21.00 01/04/18 00:04 51 20 95 21 01/04/18 00:00 54 24 171/63 (99) 95 Mechanical Ventilator 21.00 01/04/18 00:00 97 Mechanical Ventilator 21 01/03/18 23:00 54 26 160/85 (110) 96 Mechanical Ventilator 21.00 01/03/18 22:53 58 20 97 21 01/03/18 22:00 53 27 146/72 (96) 97 Mechanical Ventilator 21.00 01/03/18 21:00 47 25 147/79 (101) 97 Mechanical Ventilator 21.00 01/03/18 20:00 48 20 96 21 01/03/18 20:00 98 Mechanical Ventilator 21 01/03/18 20:00 48 26 153/85 (107) 96 Mechanical Ventilator 21.00 01/03/18 19:30 98.5 Mechanical Ventilator 21.00 01/03/18 19:00 47 28 147/77 (100) 95 Mechanical Ventilator 21.00 01/03/18 19:00 47 01/03/18 18:44 47 20 95 21 01/03/18 18:00 47 26 147/74 (98) 95 Mechanical Ventilator 21.00 01/03/18 17:00 49 27 144/74 (97) 95 Mechanical Ventilator 21.00 01/03/18 16:43 49 20 94 21 01/03/18 16:00 97 Mechanical Ventilator 30 01/03/18 16:00 61 25 133/70 (91) 94 Mechanical Ventilator 21.00 01/03/18 15:00 57 24 137/71 (93) 94 Mechanical Ventilator 21.00 01/03/18 14:09 54 22 94 21 01/03/18 14:00 54 16 122/67 (85) 95 Mechanical Ventilator 21.00 01/03/18 13:00 57 01/03/18 13:00 56 23 131/69 (89) 95 Mechanical Ventilator 21.00 01/03/18 12:00 97 Mechanical Ventilator 30 01/03/18 12:00 99.7 Mechanical Ventilator 21.00 01/03/18 12:00 66 23 119/66 (83) 94 Mechanical Ventilator 21.00 01/03/18 11:00 67 25 117/66 (83) 97 Mechanical Ventilator 21.00 01/03/18 10:21 51 21 96 21 01/03/18 10:00 67 24 160/74 (102) 97 Mechanical Ventilator 21.00 01/03/18 09:00 63 20 134/73 (93) 96 Mechanical Ventilator 21.00 01/03/18 08:39 120/69 01/03/18 08:29 70 23 93 21 01/03/18 08:00 71 21 115/64 (81) 97 Mechanical Ventilator 21.00 01/03/18 08:00 97 Mechanical Ventilator 30 I & O 01/04/18 07:00 Intake Total 520 ml Output Total 750 ml Balance -230 ml Capillary Refill : Less Than 3 Seconds General Appearance: No Apparent Distress, WD/WN HEENT: Other (Patient on ventilator) Results Lab Laboratory Tests 01/03/18 10:44 01/04/18 03:10 Laboratory Tests 01/03/18 10:44: Sodium Level 161*H, Potassium Level 3.5L, Chloride Level 132H, Carbon Dioxide Level 24, Anion Gap 5, Blood Urea Nitrogen 46H, Creatinine 1.11, Estimat Glomerular Filtration Rate > 60, BUN/Creatinine Ratio 41, Glucose Level 144H, Calcium Level 7.8L, Total Bilirubin 0.4, Aspartate Amino Transf (AST/SGOT) 14, Alanine Aminotransferase (ALT/SGPT) 34, Alkaline Phosphatase 36L, Total Protein 5.0L, Albumin 2.9L 01/03/18 15:17: Glucometer 133H 01/03/18 18:43: Vancomycin Level Trough 14.3 01/04/18 00:58: Glucometer 113H 01/04/18 03:10: White Blood Count 14.3H, Red Blood Count 4.34L, Hemoglobin 13.0L, Hematocrit 41 , Mean Corpuscular Volume 95, Mean Corpuscular Hemoglobin 30, Mean Corpuscular Hemoglobin Concent 32, Red Cell Distribution Width 13.9, Platelet Count 99L, Mean Platelet Volume 10.9H, Neutrophils (%) (Auto) 86H, Lymphocytes (%) (Auto) 7L, Monocytes (%) (Auto) 6, Eosinophils (%) (Auto) 1, Basophils (%) (Auto) 0, Neutrophils # (Auto) 12.3H, Lymphocytes # (Auto) 1.0, Monocytes # (Auto) 0.9, Eosinophils # (Auto) 0.2, Basophils # (Auto) 0.0, Sodium Level 159H, Potassium Level 3.6, Chloride Level 132H, Carbon Dioxide Level 21, Anion Gap 6, Blood Urea Nitrogen 38H, Creatinine 0.88, Estimat Glomerular Filtration Rate > 60, BUN /Creatinine Ratio 43, Glucose Level 151H, Calcium Level 8.4L, Phosphorus Level 1.7L, Magnesium Level 2.4, Thyroid Stimulating Hormone (TSH) 0.36 01/04/18 03:18: Blood Gas Puncture Site RIGHT RADIAL, Blood Gas Patient Temperature 97.4, Arterial Blood pH 7.38, Arterial Blood Partial Pressure CO2 34L, Arterial Blood Partial Pressure O2 86, Arterial Blood HCO3 20L, Arterial Blood Total CO2 21.3, Arterial Blood Oxygen Saturation 99, Arterial Blood Base Excess -4.1L, Ralph Test YES-POS, Blood Gas Ventilator Setting YES, Blood Gas Inspired Oxygen 21% Microbiology 01/02/18 Blood Culture - Preliminary, Resulted No growth 01/02/18 Gram Stain - Final, Resulted 01/02/18 Bronchial Culture - Preliminary, Resulted Usual/normal hira isolated. 01/02/18 Fungal Culture, Resulted Pending 01/02/18 Urine Culture - Preliminary, Resulted NO GROWTH Radiology [facility] REC#: [id number] PT STATUS: ADM IN : 1950 PHYSICIAN: ANUJA REYNOLDS DO ADMIT DATE: 01/02/18/ICU Signed Date of Exam: 01/03/18 CHEST 1 VIEW, AP/PA ONLY INDICATION: Dyspnea. Comparison made with prior examination 01/02/2018 FINDINGS: The heart size is normal. Lines and tubes are in satisfactory position. There is no pleural effusion, pneumothorax or pneumonia. IMPRESSION: No acute cardiopulmonary abnormality. Dictated by: Dictated on workstation # [id number] Dict: 01/03/18 0706 Trans: 01/03/18 0755 Interpreted by: FARHAN BARTLETT MD Electronically signed by: FARHAN BARTLETT MD 01/03/18 0755 Assessment/Plan Assessment/Plan Assess & Plan/Chief Complaint Sepsis. Pneumonia. Hypernatremia. Acute respiratory failure with mucous plugging and pneumonia Clinical Quality Measures Admission Status Admission Dx Severe sepsis secondary to pneumonia. Mucous plugs. Septic shock. Hypernatremia. Acute respiratory failure with mucous plug. Dementia Obtunded DVT/VTE Risk/Contraindication: Risk Factor Score Per Nursin RFS Level Per Nursing on Admit: 4+=Very High FELICIA HUYNH DO Jan 04, 2018 07:29
[2018-01-04] MEDS: POTASSIUM CL 10MEQ/50ML IVPB 50 ML IV SCH ×3 (07:38→09:00)
[2018-01-04] MEDS: MAGNESIUM 1 GM/100 ML IVPB 100 ML IV SCH ×3 (07:39→09:00)
[2018-01-04] MEDS ORDERED: LACTATED RINGERS 1,000 ML IV ONE (07:39)
--- NOTE | 2018-01-04 08:39 | Diagnostic Imaging Report ---
INDICATION: Dyspnea. COMPARISON: 01/03/2018. FINDINGS: The ET tube is in the mid trachea. The OG catheter is in the stomach. The right IJ is at the SVC. No focal pulmonary consolidation. The heart size is within the upper limits of normal and stable. No vascular congestion. IMPRESSION: Stable chest and support apparatus. Dictated by: Dictated on workstation # [id number]
[2018-01-04] MEDS: ENOXAPARIN 40 MG/0.4 ML (LOVENOX) SYR SC SCH (09:43)
[2018-01-04] MEDS: PANTOPRAZOLE 40 MG/10 ML (PROTONIX) VIAL IV SCH (09:43)
[2018-01-04] MEDS: DEXMEDETOMIDINE INJECTION 1,000 MCG in NS (IVPB) 240 ML IV SCH ×2 (10:37→20:49)
[2018-01-04] MEDS: PROPOFOL DRIP (ICU) 100 ML IV SCH ×2 (13:31→21:30)
[2018-01-04] MEDS: VANCOMYCIN 1500 MG/NS 500 ML IVPB IV SCH ×2 (22:03)
[2018-01-05] VITALS (30 sets, daily range): BP systolic 121–172; BP diastolic 52–104
[2018-01-05 03:18] LABS: BASOPHILS % (AUTO) 0 % (0-10); EOSINOPHILS # (AUTO) 0.2 10^3/uL (0.0-0.3); EOSINOPHILS % (AUTO) 2 % (0-10); HEMATOCRIT 39 % (40-54); HEMOGLOBIN 12.7 G/DL (13.3-17.7); LYMPHOCYTES % (AUTO) 8 % (12-44); MEAN CORPUSCULAR HEMOGLOBIN 30 PG (25-34); MEAN CORPUSCULAR HGB CONC 33 G/DL (32-36); MEAN CORPUSCULAR VOLUME 92 FL (80-99); MEAN PLATELET VOLUME 11.2 FL (7.4-10.4); MONOCYTES # (AUTO) 0.6 X 10^3 (0.0-1.0); MONOCYTES % (AUTO) 5 % (0-12); NEUTROPHILS # (AUTO) 10.7 X 10^3 (1.8-7.8); NEUTROPHILS % (AUTO) 85 % (42-75); PLATELET COUNT 118 10^3/uL (130-400); RED CELL DISTRIBUTION WIDTH 13.6 % (10.0-14.5); WHITE BLOOD COUNT 12.5 10^3/uL (4.3-11.0)
[2018-01-05 03:18] LABS: ABG BASE EXCESS -3.6 MMOL/L (-2.5-2.5); ABG OXYGEN SATURATION 95 % (94-100); ABG PCO2 31 MMHG (35-45); ABG PH 7.43 (7.37-7.43); ABG PO2 75 MMHG (79-93)
[2018-01-05] MEDS: D5 1/2 NS W/KCL 20 MEQ/L 1,000 ML IV SCH (03:18)
[2018-01-05 03:19] LABS: ALLENS TEST YES-POS; INSPIRED O2 21%; PATIENT TEMP 98.2; VENTILATOR YES
[2018-01-05 03:34] LABS: BUN/CREATININE RATIO 33; CALCIUM 7.8 MG/DL (8.5-10.1); CARBON DIOXIDE 22 MMOL/L (21-32); CHLORIDE 125 MMOL/L (98-107); CREATININE SERUM 0.79 MG/DL (0.60-1.30); GFR ESTIMATED > 60; GLUCOSE 144 MG/DL (70-105); MAGNESIUM 2.2 MG/DL (1.8-2.4); PHOSPHORUS 2.2 MG/DL (2.3-4.7); POTASSIUM 3.9 MMOL/L (3.6-5.0); SODIUM 152 MMOL/L (135-145)
[2018-01-05] MEDS: KCL 20 MEQ TAB (K-DUR) PO SCH (04:21)
[2018-01-05] MEDS: PROPOFOL DRIP (ICU) 100 ML IV SCH (04:41)
[2018-01-05] MEDS ORDERED: FUROSEMIDE 40 MG/4 ML INJ (LASIX) IVP ONE ×2 (05:45→06:15)
--- NOTE | 2018-01-05 05:54 | Pulmonary Progress Note ---
Subjective Time Seen by Provider: 05:57 Subjective/Events-last exam PT doing better on vent. Focused Exam Lactate Level 01/02/18 12:37: Lactic Acid Level 0.88 01/02/18 23:55: Lactic Acid Level 1.43 Exam Exam Vital Signs Date Time Temp Pulse Resp B/P (MAP) Pulse Ox O2 Delivery O2 Flow Rate FiO2 01/05/18 05:00 57 23 165/87 (113) 97 Mechanical Ventilator 21.00 01/05/18 04:00 71 28 160/98 (118) 95 Mechanical Ventilator 21.00 01/05/18 04:00 97 Mechanical Ventilator 21 01/05/18 03:50 65 27 96 21 01/05/18 03:28 67 25 96 21 01/05/18 03:00 58 23 155/87 (109) 94 Mechanical Ventilator 21.00 01/05/18 02:00 60 24 159/90 (113) 97 Mechanical Ventilator 21.00 01/05/18 01:00 60 01/05/18 01:00 60 22 162/72 (102) 95 Mechanical Ventilator 21.00 01/05/18 00:40 62 23 95 21 01/05/18 00:00 98 Mechanical Ventilator 21 01/05/18 00:00 64 24 152/81 (104) 95 Mechanical Ventilator 21.00 01/04/18 23:11 54 24 95 21 01/04/18 23:00 54 25 154/74 (100) 95 Mechanical Ventilator 21.00 01/04/18 22:00 56 25 134/76 (95) 94 Mechanical Ventilator 21.00 01/04/18 21:00 63 27 126/71 (89) 93 Mechanical Ventilator 21.00 01/04/18 20:00 97 Mechanical Ventilator 21 01/04/18 20:00 55 27 130/68 (88) 95 Mechanical Ventilator 21.00 01/04/18 19:40 49 26 96 21 01/04/18 19:38 100.0 49 22 131/70 (90) 95 Mechanical Ventilator 21.00 01/04/18 19:00 50 01/04/18 19:00 50 25 147/75 (99) 95 Mechanical Ventilator 21.00 01/04/18 18:00 50 24 149/78 (101) 96 Mechanical Ventilator 21.00 01/04/18 17:17 54 24 95 21 01/04/18 17:00 53 23 151/70 (97) 95 Mechanical Ventilator 21.00 01/04/18 16:30 98.5 01/04/18 16:30 Mechanical Ventilator 21 01/04/18 16:00 50 18 158/80 (106) 95 Mechanical Ventilator 21.00 01/04/18 15:00 59 21 158/67 (97) 94 Mechanical Ventilator 21.00 01/04/18 14:10 50 22 96 21 01/04/18 14:00 51 27 146/71 (96) 96 Mechanical Ventilator 21.00 01/04/18 13:00 Mechanical Ventilator 21 01/04/18 13:00 49 01/04/18 13:00 49 21 135/69 (91) 95 Mechanical Ventilator 21.00 01/04/18 13:00 98.8 Mechanical Ventilator 21.00 01/04/18 12:22 49 21 94 21 01/04/18 12:00 52 22 128/68 (88) 94 Mechanical Ventilator 21.00 01/04/18 11:00 73 20 120/73 (89) 96 Mechanical Ventilator 21.00 01/04/18 10:17 68 27 98 21 01/04/18 10:00 73 26 156/84 (108) 98 Mechanical Ventilator 21.00 01/04/18 09:00 60 26 149/84 (105) 98 Mechanical Ventilator 21.00 01/04/18 08:09 69 27 97 21 01/04/18 08:00 96.5 79 28 96 Mechanical Ventilator 21.00 01/04/18 08:00 Mechanical Ventilator 21 01/04/18 07:00 56 24 167/71 (103) 97 Mechanical Ventilator 21.00 01/04/18 07:00 67 01/04/18 06:49 59 20 98 21 01/04/18 06:00 49 26 156/86 (109) 98 Mechanical Ventilator 21.00 I & O 01/05/18 07:00 Intake Total 4260 ml Output Total 1900 ml Balance 2360 ml General Appearance: No Apparent Distress, WD/WN HEENT: Other (Patient on ventilator) Neck: Normal Inspection Respiratory: No Accessory Muscle Use, Decreased Breath Sounds, Other (Patient on vent) Cardiovascular: Regular Rate, Rhythm Capillary Refill: Less Than 3 Seconds Extremity: Normal Range of Motion, Non Tender, Pedal Edema Skin: Normal Color, Warm/Dry Results Lab Laboratory Tests 01/03/18 10:44 01/04/18 03:10 01/05/18 03:00 Assessment/Plan Assessment/Plan Severe sepsis secondary to pneumonia -mosquera culture -Vanco and Zosyn Hypernatremia - probably secondary to dehydration --IVF-- change to to D5W -Will monitor close Acute respiratory failure with mucous plugging and pneumonia s/p bronchoscopy -Pt had copious amounts of sputum with bronchoscopy -Will attempt vent weaning today. - heated circuit and do albuterol/mucomyst Q 4 hrs -CPT with SVNs -pt wakes up however does not follow commands. Per ECF pt has only been alert per person. -TF - hold for possible extubation. HTN with bradycardia -Hydralazine PRN for SBP >165 Hx of severe dementia from ECF 233 Critical Care: Critically Ill Patient ANUJA REYNOLDS DO Jan 05, 2018 05:54
[2018-01-05] MEDS ORDERED: hydrALAZINE (APESOLINE) 20 MG/ML VIAL IV PRN (06:00)
[2018-01-05] MEDS ORDERED: hydrALAZINE (APESOLINE) 20 MG/ML VIAL ONE (06:19)
[2018-01-05] MEDS ORDERED: FUROSEMIDE 40 MG/4 ML INJ (LASIX) ONE (06:19)
[2018-01-05] MEDS: PIPERACILLIN SODIUM/TAZOBACTAM 4.5 GM in NS (IVPB) 100 ML IV SCH ×3 (06:28→20:01)
[2018-01-05] MEDS: RT-ALBUTEROL/IPRATROPIUM 3 ML (DUONEB) VIAL INH SCH ×5 (06:59→22:00)
[2018-01-05] MEDS: aCETylcysteine 20% (MUCOMYST) 30ML SOLN VIAL INH SCH ×5 (06:59→22:00)
[2018-01-05 07:08] LABS: ABG BASE EXCESS -3.6 MMOL/L (-2.5-2.5); ABG OXYGEN SATURATION 98 % (94-100); ABG PCO2 26 MMHG (35-45); ABG PH 7.49 (7.37-7.43); ABG PO2 85 MMHG (79-93); ABG TCO2 19.9 MMOL/L (21.0-31.0)
[2018-01-05 07:09] LABS: ALLENS TEST YES-POS; INSPIRED O2 21%; PATIENT TEMP 99.5; VENTILATOR YES
[2018-01-05] MEDS ORDERED: POTASSIUM PHOSPHATE INJ 30 MM in NS (IVPB) 250 ML IV NR (07:32)
--- NOTE | 2018-01-05 07:35 | Progress Note (SOAP) ---
Subjective Time Seen by Provider: 07:15 Subjective/Events-last exam pt. better. Maybe off vent today Focused Exam Lactate Level 01/02/18 12:37: Lactic Acid Level 0.88 01/02/18 23:55: Lactic Acid Level 1.43 Objective Exam Vital Signs Date Time Temp Pulse Resp B/P (MAP) Pulse Ox O2 Delivery O2 Flow Rate FiO2 01/05/18 06:59 60 20 97 21 01/05/18 06:00 58 18 172/83 (112) 98 Mechanical Ventilator 21.00 01/05/18 05:00 57 23 165/87 (113) 97 Mechanical Ventilator 21.00 01/05/18 04:00 71 28 160/98 (118) 95 Mechanical Ventilator 21.00 01/05/18 04:00 97 Mechanical Ventilator 21 01/05/18 03:50 65 27 96 21 01/05/18 03:28 67 25 96 21 01/05/18 03:00 58 23 155/87 (109) 94 Mechanical Ventilator 21.00 01/05/18 02:00 60 24 159/90 (113) 97 Mechanical Ventilator 21.00 01/05/18 01:00 60 01/05/18 01:00 60 22 162/72 (102) 95 Mechanical Ventilator 21.00 01/05/18 00:40 62 23 95 21 01/05/18 00:00 98 Mechanical Ventilator 21 01/05/18 00:00 64 24 152/81 (104) 95 Mechanical Ventilator 21.00 01/04/18 23:11 54 24 95 21 01/04/18 23:00 54 25 154/74 (100) 95 Mechanical Ventilator 21.00 01/04/18 22:00 56 25 134/76 (95) 94 Mechanical Ventilator 21.00 01/04/18 21:00 63 27 126/71 (89) 93 Mechanical Ventilator 21.00 01/04/18 20:00 97 Mechanical Ventilator 21 01/04/18 20:00 55 27 130/68 (88) 95 Mechanical Ventilator 21.00 01/04/18 19:40 49 26 96 21 01/04/18 19:38 100.0 49 22 131/70 (90) 95 Mechanical Ventilator 21.00 01/04/18 19:00 50 01/04/18 19:00 50 25 147/75 (99) 95 Mechanical Ventilator 21.00 4/24/18 18:00 50 24 149/78 (101) 96 Mechanical Ventilator 21.00 01/04/18 17:17 54 24 95 21 01/04/18 17:00 53 23 151/70 (97) 95 Mechanical Ventilator 21.00 01/04/18 16:30 98.5 01/04/18 16:30 Mechanical Ventilator 21 01/04/18 16:00 50 18 158/80 (106) 95 Mechanical Ventilator 21.00 01/04/18 15:00 59 21 158/67 (97) 94 Mechanical Ventilator 21.00 01/04/18 14:10 50 22 96 21 01/04/18 14:00 51 27 146/71 (96) 96 Mechanical Ventilator 21.00 01/04/18 13:00 Mechanical Ventilator 21 01/04/18 13:00 49 01/04/18 13:00 49 21 135/69 (91) 95 Mechanical Ventilator 21.00 01/04/18 13:00 98.8 Mechanical Ventilator 21.00 01/04/18 12:22 49 21 94 21 01/04/18 12:00 52 22 128/68 (88) 94 Mechanical Ventilator 21.00 01/04/18 11:00 73 20 120/73 (89) 96 Mechanical Ventilator 21.00 01/04/18 10:17 68 27 98 21 01/04/18 10:00 73 26 156/84 (108) 98 Mechanical Ventilator 21.00 01/04/18 09:00 60 26 149/84 (105) 98 Mechanical Ventilator 21.00 01/04/18 08:09 69 27 97 21 01/04/18 08:00 96.5 79 28 96 Mechanical Ventilator 21.00 01/04/18 08:00 Mechanical Ventilator 21 I & O 01/05/18 07:00 Intake Total 4440 ml Output Total 2600 ml Balance 1840 ml Capillary Refill : Less Than 3 Seconds General Appearance: No Apparent Distress, WD/WN HEENT: Normal ENT Inspection Respiratory: Lungs Clear, No Accessory Muscle Use, No Respiratory Distress Cardiovascular: Regular Rate, Rhythm, No Murmur Gastrointestinal: non tender, soft Results Lab Laboratory Tests 01/05/18 03:00 Laboratory Tests 01/04/18 07:55: Vancomycin Level Trough 16.9 01/04/18 09:52: Triglycerides Level 65 01/04/18 17:38: Glucometer 125H 01/05/18 00:57: Glucometer 123H 01/05/18 03:00: White Blood Count 12.5H, Red Blood Count 4.20L, Hemoglobin 12.7L, Hematocrit 39L , Mean Corpuscular Volume 92, Mean Corpuscular Hemoglobin 30, Mean Corpuscular Hemoglobin Concent 33, Red Cell Distribution Width 13.6, Platelet Count 118L, Mean Platelet Volume 11.2H, Neutrophils (%) (Auto) 85H, Lymphocytes (%) (Auto) 8L, Monocytes (%) (Auto) 5, Eosinophils (%) (Auto) 2, Basophils (%) (Auto) 0, Neutrophils # (Auto) 10.7H, Lymphocytes # (Auto) 1.0, Monocytes # (Auto) 0.6, Eosinophils # (Auto) 0.2, Basophils # (Auto) 0.0, Sodium Level 152H, Potassium Level 3.9, Chloride Level 125H, Carbon Dioxide Level 22, Anion Gap 5, Blood Urea Nitrogen 26H, Creatinine 0.79, Estimat Glomerular Filtration Rate > 60, BUN /Creatinine Ratio 33, Glucose Level 144H, Calcium Level 7.8L, Phosphorus Level 2.2L, Magnesium Level 2.2 01/05/18 03:06: Blood Gas Puncture Site RIGHT RADIAL, Blood Gas Patient Temperature 98.2, Arterial Blood pH 7.43, Arterial Blood Partial Pressure CO2 31L, Arterial Blood Partial Pressure O2 75L, Arterial Blood HCO3 20L, Arterial Blood Total CO2 21.0 , Arterial Blood Oxygen Saturation 95, Arterial Blood Base Excess -3.6L, Ralph Test YES-POS, Blood Gas Ventilator Setting YES, Blood Gas Inspired Oxygen 21% 01/05/18 06:50: Blood Gas Puncture Site RIGHT RADIAL, Blood Gas Patient Temperature 99.5, Arterial Blood pH 7.49H, Arterial Blood Partial Pressure CO2 26L, Arterial Blood Partial Pressure O2 85, Arterial Blood HCO3 19L, Arterial Blood Total CO2 19.9L, Arterial Blood Oxygen Saturation 98, Arterial Blood Base Excess -3.6L, Ralph Test YES-POS, Blood Gas Ventilator Setting YES, Blood Gas Inspired Oxygen 21% Microbiology 01/02/18 Blood Culture - Preliminary, Resulted No growth 01/02/18 MRSA Screen - Final, Complete MRSA not isolated 01/02/18 Urine Culture - Final, Complete NO GROWTH Assessment/Plan Assessment/Plan Assess & Plan/Chief Complaint Sepsis. Pneumonia. Hypernatremia. Acute respiratory failure with mucous plugging and pneumonia 01/05/18 Patient stable Clinical Quality Measures Admission Status Admission Dx Severe sepsis secondary to pneumonia. Mucous plugs. Septic shock. Hypernatremia. Acute respiratory failure with mucous plug. Dementia Obtunded DVT/VTE Risk/Contraindication: Risk Factor Score Per Nursin RFS Level Per Nursing on Admit: 4+=Very High FELICIA HUYNH DO Jan 05, 2018 07:35
[2018-01-05] MEDS: D5W 1000 ML IV SOLUTION 1,000 ML IV SCH ×3 (08:33→22:25)
[2018-01-05] MEDS: VANCOMYCIN 1500 MG/NS 500 ML IVPB IV SCH ×4 (08:34→22:00)
[2018-01-05] MEDS: ENOXAPARIN 40 MG/0.4 ML (LOVENOX) SYR SC SCH (08:34)
[2018-01-05] MEDS: PANTOPRAZOLE 40 MG/10 ML (PROTONIX) VIAL IV SCH (08:34)
--- NOTE | 2018-01-05 08:42 | Diagnostic Imaging Report ---
Indication: Dyspnea. Time of exam: 3:10 AM Correlation is made with prior study from one day earlier. Findings: The various support lines and catheters remain in place. There is some mild increase in airspace infiltrate in the right base since yesterday. The left lung is stable. No effusion is seen. No pneumothorax is seen. Impression: Mild increased airspace infiltrate right base when compared to examination one day earlier. Dictated by: Dictated on workstation # [id number]
--- NOTE | 2018-01-05 13:40 | ST Dysphagia Evaluation ---
Speech Evaluation-General Medical Diagnosis Respiratory Failure, Septic Shock Onset Date: Jan 02, 2018 Therapy Diagnosis Therapy Diagnosis: Severe Oropharyngeal Dysphagia Precautions Precautions: Aspiration Precautions/Isolations: Fall Prevention, Standard Precautions Referral Referring Physician: Dr. Tomas Cuello Reason for Referral: Evaluation/Treatment Clinical Bedside Swallowing Evaluation. To note, the speech pathologist's consult read "Modified Barium Swallow." The speech pathologist contacted the patient's RN to discuss the order. Per RN, a bedside swallow is requested and, if appropriate, at that time, a modified to be performed. Speech pathology will complete the clinical bedside swallowing assessment at this time. Medical History Pertinent Medical History: CAD, Dementia, HTN CVA Current History The patient was recently admitted with a diagnosis of septic shock and respiratory failure. Speech pathology received orders to evaluate the patient's swallowing function on 01/02/18 (admission). Unfortunately, the patient was reintubated on Wednesday morning, 01/03/18, therefore the swallow evaluation was cancelled. The patient remained intubated until 10:00 am on this date, . Speech PLF/Current-Dysphagia Prior Level of Function The patient does not respond to questions poised by the clinician. The patient verbalizes, however, it is nonsensical speech. Subjective The patient is laying in bed upon entrance. He is currently receiving supplemental oxygen via nasal cannula with SpO2% at 100%. The patient is positioned upright for the swallowing evaluation. To note, a white substance in on the patient's lingual surface, possibly resembling thrush. The patient was provided oral care with a moist toothette prior to the evaluation. Cognitive Status The patient does not respond to orientation questions poised by the clinician, including name. Oral Motor Skills Dentition: Edentalous Ability to Follow Directions: Poor The patient is NPO pending the results of the clinical bedside swallowing evaluation. Oral Expression Ability: Severe Impairment Observation: Excessive Excretion Hypopharynx (Audible, wet secretions were noted throughout restful breathing.) Voice Voice Phonatory-Based Quality: Normal Voice Pitch: Normal Voice Loudness: Normal Face Facial Symmetry: Asymmetrical (A slight left labial droop was noted at rest.) The patient did not follow prompts for completion of the oral mechanism evaluation. The patient did not follow any verbal instructions provided by the clinician. Oral-Facial Assessment Labial Seal Description: Droops Left (At rest.) Dysphagia Evaluation Consistencies Presented: Thin Liquid (Half Teaspoon (Two)), Honey Thick Liquid (Honey-thick liquid (the patient refused trials of honey-thick liquid, pursing lips at each attempt (5 total)).), Pureed (Two Teaspoons) Oral Phase: Anterior Spillage Anterior spillage (minimal) was noted with bolus trials of thin liquid. Pharyngeal Phase: Multiple Swallow Attempts, Clears Throat, Delayed Swallow - All consistencies tested (thin liquid, puree) Funct. Velo/Pharyngeal Symptom: Clears Throat, Cough After Swallow, Wet Voice Thin Liquid (Two Teaspoons): The patient demonstrated a delayed, rigorous cough in correlation to each teaspoon of thin liquid. In addition, the patient displayed an overtly wet vocal quality and gurgling-type pharyngeal secretions. Puree: An overtly wet vocal quality was demonstrated following bolus trials of puree, as well as, a rigorous throat clear and facial grimacing. The patient's SpO2% remained stable at 100% throughout the trial. Dietary Recommendations: NPO Liquid Recommendations: NPO Frequent oral care to reduce the transfer of oral bacteria to the lungs should aspiration of secretions occur. Dysphagia Evaluation Summary Severe oropharyngeal dysphagia characterized by delayed onset of the pharyngeal onset, reduced airway protection in the presence of bolus material, and decreased laryngeal elevation. At this time, the patient remains at a high risk for aspiration with PO intake of any kind. Speech-Plan Treatment Plan Speech Therapy Treatment Plan: Continue Plan of Care Continue evaluation of swallowing safety and appropriateness for PO intake. Treatment Duration: January 19, 2018 Frequency: 3 times per week Estimated Hrs Per Day: .25 hour per day Rehab Potential: Guarded Safety Risks/Education Teaching Recipient: Patient Teaching Methods: Discussion Response to Teaching: Unable to Comprehend Education Topics Provided: Results, Recommendations, Plan of Care Time Speech Therapy Time In: 13:15 Speech Therapy Time Out: 13:35 Total Billed Time: 20 Billed Treatment Time 1KESHA To note, the RN was made aware that speech coverage would not be available on and will be re-available on 01/07/18. The RN stated she would provide this information to the shift superintendent caustic cresylate. THAO TREVIZO Jan 05, 2018 13:40
[2018-01-06] VITALS (23 sets, daily range): BP systolic 124–168; BP diastolic 58–103
[2018-01-06] MEDS: D5W 1000 ML IV SOLUTION 1,000 ML IV SCH ×2 (02:00→13:10)
[2018-01-06] MEDS: RT-ALBUTEROL/IPRATROPIUM 3 ML (DUONEB) VIAL INH SCH ×6 (02:42→22:59)
[2018-01-06] MEDS: aCETylcysteine 20% (MUCOMYST) 30ML SOLN VIAL INH SCH ×6 (02:42→22:59)
[2018-01-06 04:03] LABS: BASOPHILS % (AUTO) 0 % (0-10); EOSINOPHILS # (AUTO) 0.3 10^3/uL (0.0-0.3); EOSINOPHILS % (AUTO) 2 % (0-10); HEMATOCRIT 40 % (40-54); HEMOGLOBIN 13.3 G/DL (13.3-17.7); LYMPHOCYTES # (AUTO) 1.3 X 10^3 (1.0-4.0); LYMPHOCYTES % (AUTO) 9 % (12-44); MEAN CORPUSCULAR HEMOGLOBIN 30 PG (25-34); MEAN CORPUSCULAR HGB CONC 33 G/DL (32-36); MEAN CORPUSCULAR VOLUME 91 FL (80-99); MEAN PLATELET VOLUME 10.2 FL (7.4-10.4); MONOCYTES # (AUTO) 0.7 X 10^3 (0.0-1.0); MONOCYTES % (AUTO) 5 % (0-12); NEUTROPHILS # (AUTO) 11.8 X 10^3 (1.8-7.8); NEUTROPHILS % (AUTO) 84 % (42-75); PLATELET COUNT 169 10^3/uL (130-400); RED BLOOD COUNT 4.45 10^6/uL (4.35-5.85); RED CELL DISTRIBUTION WIDTH 13.7 % (10.0-14.5); WHITE BLOOD COUNT 14.1 10^3/uL (4.3-11.0)
[2018-01-06 04:32] LABS: BUN/CREATININE RATIO 26; CALCIUM 8.2 MG/DL (8.5-10.1); CARBON DIOXIDE 23 MMOL/L (21-32); CHLORIDE 113 MMOL/L (98-107); CREATININE SERUM 0.72 MG/DL (0.60-1.30); GFR ESTIMATED > 60; GLUCOSE 104 MG/DL (70-105); PHOSPHORUS 2.7 MG/DL (2.3-4.7); POTASSIUM 3.3 MMOL/L (3.6-5.0); SODIUM 143 MMOL/L (135-145)
[2018-01-06] MEDS: POTASSIUM CL 10MEQ/50ML IVPB 50 ML IV SCH ×5 (05:15→09:28)
[2018-01-06] MEDS: MAGNESIUM 1 GM/100 ML IVPB 100 ML IV SCH (05:15)
[2018-01-06] MEDS: KCL 20 MEQ TAB (K-DUR) PO SCH (05:16)
--- NOTE | 2018-01-06 05:18 | Pulmonary Progress Note ---
Subjective Time Seen by Provider: 05:15 Subjective/Events-last exam Pt is doing well off ventilator. Exam Exam Vital Signs Date Time Temp Pulse Resp B/P (MAP) Pulse Ox O2 Delivery O2 Flow Rate FiO2 01/06/18 02:43 100 Nasal Cannula 3.00 01/06/18 02:00 78 28 160/59 (92) 97 Nasal Cannula 3.00 01/06/18 01:00 76 24 148/75 (99) 99 Nasal Cannula 3.00 01/06/18 01:00 76 01/06/18 00:00 98.7 85 29 151/71 (97) 96 Nasal Cannula 3.00 01/05/18 23:45 87 28 97 Nasal Cannula 3.00 01/05/18 23:00 89 36 146/79 (101) 89 Room Air 01/05/18 22:02 90 Room Air 01/05/18 22:00 85 35 161/93 (115) 90 Room Air 01/05/18 21:00 86 29 154/84 (107) 92 Room Air 01/05/18 20:00 96 Room Air 01/05/18 20:00 97.8 80 23 134/59 (84) 91 Room Air 01/05/18 19:02 98 Room Air 01/05/18 19:00 78 01/05/18 19:00 78 15 152/66 (94) 98 Room Air 01/05/18 18:00 75 19 135/79 (97) 98 Nasal Cannula 2.00 01/05/18 17:00 79 19 146/52 (83) 99 Nasal Cannula 2.00 01/05/18 16:00 100.4 74 19 161/71 (101) 98 Nasal Cannula 2.00 01/05/18 16:00 98 Nasal Cannula 2.00 01/05/18 15:00 81 15 157/75 (102) 97 Nasal Cannula 2.00 01/05/18 14:36 100 Nasal Cannula 1.00 01/05/18 14:00 67 24 164/94 (117) 100 Nasal Cannula 2.00 01/05/18 13:00 76 01/05/18 13:00 72 28 154/104 (121) 99 Nasal Cannula 2.00 01/05/18 12:00 97 Nasal Cannula 2.00 01/05/18 12:00 99.0 66 15 163/85 (111) 99 Nasal Cannula 21.00 2.00 01/05/18 11:00 68 18 146/63 (90) 96 Nasal Cannula 2.00 01/05/18 10:16 98 Nasal Cannula 2.00 01/05/18 10:09 97 Nasal Cannula 2.00 01/05/18 10:00 78 27 140/85 (103) 99 Mechanical Ventilator 21.00 01/05/18 09:59 76 25 100 21 01/05/18 09:00 65 17 123/57 (79) 98 Mechanical Ventilator 21.00 01/05/18 08:10 66 19 97 21 01/05/18 08:00 97 Mechanical Ventilator 21 01/05/18 08:00 67 21 128/61 (83) 97 Mechanical Ventilator 21.00 01/05/18 07:00 61 19 121/68 (85) 97 Mechanical Ventilator 21.00 01/05/18 07:00 99.6 01/05/18 07:00 64 01/05/18 06:59 60 20 97 21 01/05/18 06:00 58 18 172/83 (112) 98 Mechanical Ventilator 21.00 I & O 01/06/18 07:00 Intake Total 2690 ml Output Total 4800 ml Balance -2110 ml General Appearance: No Apparent Distress, WD/WN HEENT: Normal ENT Inspection Neck: Normal Inspection Respiratory: Lungs Clear, No Accessory Muscle Use, No Respiratory Distress Cardiovascular: Regular Rate, Rhythm, No Murmur Capillary Refill: Less Than 3 Seconds Gastrointestinal: non tender, soft Extremity: Normal Range of Motion, Non Tender, Pedal Edema Skin: Normal Color, Warm/Dry Results Lab Laboratory Tests 01/05/18 03:00 01/06/18 03:50 Assessment/Plan Assessment/Plan Severe sepsis secondary to pneumonia - improving -mosquera culture -Vanco and Zosyn Hypernatremia - probably secondary to dehydration - D5W -Will monitor close Pt failed swallow evaluation Acute respiratory failure with mucous plugging and pneumonia s/p bronchoscopy - HTN with bradycardia -Hydralazine PRN for SBP >165 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 He can not communicate, follow commands, and he has lost his ability to swallow. He is currently NPO. Pt's overall prognosis is poor. Pt is a good candidate for hospice care. 233 will transfer pt to 4th floor. Critical Care: Critically Ill Patient ANUJA REYNOLDS DO Jan 06, 2018 05:18
[2018-01-06] MEDS: PIPERACILLIN SODIUM/TAZOBACTAM 4.5 GM in NS (IVPB) 100 ML IV SCH ×2 (06:16→13:09)
--- NOTE | 2018-01-06 07:50 | Progress Note (SOAP) ---
Subjective Time Seen by Provider: 07:50 Subjective/Events-last exam Patient off the vent. Patient awake. Patient has mucus in chest. Lungs are not clear Objective Exam Vital Signs Date Time Temp Pulse Resp B/P (MAP) Pulse Ox O2 Delivery O2 Flow Rate FiO2 01/06/18 07:31 90 Nasal Cannula 3.00 01/06/18 06:00 91 38 150/93 (112) 91 Nasal Cannula 3.00 01/06/18 05:00 76 32 146/88 (107) 97 Nasal Cannula 3.00 01/06/18 04:00 71 11 140/86 (104) 95 Nasal Cannula 3.00 01/06/18 04:00 96 Nasal Cannula 3.00 01/06/18 03:00 79 29 168/66 (100) 98 Nasal Cannula 3.00 01/06/18 02:43 100 Nasal Cannula 3.00 01/06/18 02:00 78 28 160/59 (92) 97 Nasal Cannula 3.00 01/06/18 01:00 76 24 148/75 (99) 99 Nasal Cannula 3.00 01/06/18 01:00 76 01/06/18 00:00 98.7 85 29 151/71 (97) 96 Nasal Cannula 3.00 01/06/18 00:00 96 Nasal Cannula 3.00 01/05/18 23:45 87 28 97 Nasal Cannula 3.00 01/05/18 23:00 89 36 146/79 (101) 89 Room Air 01/05/18 22:02 90 Room Air 01/05/18 22:00 85 35 161/93 (115) 90 Room Air 01/05/18 21:00 86 29 154/84 (107) 92 Room Air 01/05/18 20:00 96 Room Air 01/05/18 20:00 97.8 80 23 134/59 (84) 91 Room Air 01/05/18 19:02 98 Room Air 01/05/18 19:00 78 01/05/18 19:00 78 15 152/66 (94) 98 Room Air 01/05/18 18:00 75 19 135/79 (97) 98 Nasal Cannula 2.00 01/05/18 17:00 79 19 146/52 (83) 99 Nasal Cannula 2.00 01/05/18 16:00 100.4 74 19 161/71 (101) 98 Nasal Cannula 2.00 01/05/18 16:00 98 Nasal Cannula 2.00 01/05/18 15:00 81 15 157/75 (102) 97 Nasal Cannula 2.00 01/05/18 14:36 100 Nasal Cannula 1.00 01/05/18 14:00 67 24 164/94 (117) 100 Nasal Cannula 2.00 01/05/18 13:00 76 01/05/18 13:00 72 28 154/104 (121) 99 Nasal Cannula 2.00 01/05/18 12:00 97 Nasal Cannula 2.00 01/05/18 12:00 99.0 66 15 163/85 (111) 99 Nasal Cannula 21.00 2.00 01/05/18 11:00 68 18 146/63 (90) 96 Nasal Cannula 2.00 01/05/18 10:16 98 Nasal Cannula 2.00 01/05/18 10:09 97 Nasal Cannula 2.00 01/05/18 10:00 78 27 140/85 (103) 99 Mechanical Ventilator 21.00 01/05/18 09:59 76 25 100 21 01/05/18 09:00 65 17 123/57 (79) 98 Mechanical Ventilator 21.00 01/05/18 08:10 66 19 97 21 01/05/18 08:00 97 Mechanical Ventilator 21 01/05/18 08:00 67 21 128/61 (83) 97 Mechanical Ventilator 21.00 I & O 01/06/18 07:00 Intake Total 2690 ml Output Total 6650 ml Balance -3960 ml Capillary Refill : Less Than 3 Seconds General Appearance: No Apparent Distress, WD/WN Results Lab Laboratory Tests 01/05/18 12:17: Glucometer 97 01/06/18 03:50: White Blood Count 14.1H, Red Blood Count 4.45, Hemoglobin 13.3, Hematocrit 40, Mean Corpuscular Volume 91, Mean Corpuscular Hemoglobin 30, Mean Corpuscular Hemoglobin Concent 33, Red Cell Distribution Width 13.7, Platelet Count 169, Mean Platelet Volume 10.2, Neutrophils (%) (Auto) 84H, Lymphocytes (%) (Auto) 9L , Monocytes (%) (Auto) 5, Eosinophils (%) (Auto) 2, Basophils (%) (Auto) 0, Neutrophils # (Auto) 11.8H, Lymphocytes # (Auto) 1.3, Monocytes # (Auto) 0.7, Eosinophils # (Auto) 0.3, Basophils # (Auto) 0.0, Sodium Level 143, Potassium Level 3.3L, Chloride Level 113H, Carbon Dioxide Level 23, Anion Gap 7, Blood Urea Nitrogen 19H, Creatinine 0.72, Estimat Glomerular Filtration Rate > 60, BUN /Creatinine Ratio 26, Glucose Level 104, Calcium Level 8.2L, Phosphorus Level 2.7, Magnesium Level 2.0 Microbiology 01/02/18 Blood Culture - Preliminary, Resulted No growth 01/02/18 MRSA Screen - Final, Complete MRSA not isolated 01/02/18 Urine Culture - Final, Complete NO GROWTH Assessment/Plan Assessment/Plan Assess & Plan/Chief Complaint Sepsis. Pneumonia. Hypernatremia. Acute respiratory failure with mucous plugging and pneumonia 01/05/18 Patient stable. . 01/06/18. Sepsis. Pneumonia. Acute respiratory. Hypertension. Bradycardia. Dementia. Patient off ventilator Clinical Quality Measures Admission Status Admission Dx Severe sepsis secondary to pneumonia. Mucous plugs. Septic shock. Hypernatremia. Acute respiratory failure with mucous plug. Dementia Obtunded DVT/VTE Risk/Contraindication: Risk Factor Score Per Nursin RFS Level Per Nursing on Admit: 4+=Very High FELICIA HUYNH DO Jan 06, 2018 07:50
[2018-01-06] MEDS: ENOXAPARIN 40 MG/0.4 ML (LOVENOX) SYR SC SCH (08:23)
[2018-01-06] MEDS: PANTOPRAZOLE 40 MG/10 ML (PROTONIX) VIAL IV SCH (08:24)
--- NOTE | 2018-01-06 08:50 | Diagnostic Imaging Report ---
CHEST 1 VIEW, AP/PA ONLY INDICATION: Dyspnea. COMPARISON: 01/05/2018 FINDINGS: Support Devices: Removal of ET and enteric tubes. Right IJ central venous catheter is in stable position. Chest: Stable bibasilar heterogeneous opacities. Small right pleural effusion stable. No pneumothorax. Stable cardiomegaly. IMPRESSION: 1. Extubation without adverse development. 2. Stable basilar pulmonary opacities and small right pleural effusion. Dictated by: Dictated on workstation # [id number]
[2018-01-06 14:43] LABS: ABG BASE EXCESS -2.2 MMOL/L (-2.5-2.5); ABG OXYGEN SATURATION 94 % (94-100); ABG PCO2 29 MMHG (35-45); ABG PH 7.47 (7.37-7.43); ABG PO2 80 MMHG (79-93); ABG TCO2 21.7 MMOL/L (21.0-31.0); ALLENS TEST YES-POS
[2018-01-06 14:44] LABS: INSPIRED O2 31; VENTILATOR NO
--- NOTE | 2018-01-06 15:04 | Diagnostic Imaging Report ---
INDICATION: Questionable aspiration. TIME OF EXAMINATION: 2:42 PM. COMPARISON: Correlation is made to the prior study of earlier this same day. FINDINGS: The right IJ line has its tip overlying the SVC. Airspace infiltrate in the right base appears to be slightly worse, suggestive of pneumonia. The left lung is clear. No effusion is seen. No pneumothorax is identified. IMPRESSION: Increasing right basilar infiltrate when compared to the examination from earlier this same day. Dictated by: Dictated on workstation # [id number]
[2018-01-07] VITALS (24 sets, daily range): BP systolic 113–156; BP diastolic 54–94
[2018-01-07] MEDS: aCETylcysteine 20% (MUCOMYST) 30ML SOLN VIAL INH SCH ×5 (01:48→22:43)
[2018-01-07] MEDS: RT-ALBUTEROL/IPRATROPIUM 3 ML (DUONEB) VIAL INH SCH ×6 (01:48→22:42)
[2018-01-07 03:30] LABS: HEMOGLOBIN 13.2 G/DL (13.3-17.7); RED BLOOD COUNT 4.4 10^6/uL (4.35-5.85); RED CELL DISTRIBUTION WIDTH 13.1 % (10.0-14.5); WHITE BLOOD COUNT 14.8 10^3/uL (4.3-11.0)
[2018-01-07 03:52] LABS: BUN/CREATININE RATIO 21; CALCIUM 8.2 MG/DL (8.5-10.1); CARBON DIOXIDE 22 MMOL/L (21-32); CHLORIDE 111 MMOL/L (98-107); CREATININE SERUM 0.76 MG/DL (0.60-1.30); GFR ESTIMATED > 60; GLUCOSE 92 MG/DL (70-105); POTASSIUM 3.5 MMOL/L (3.6-5.0); SODIUM 142 MMOL/L (135-145)
[2018-01-07] MEDS: KCL 20 MEQ TAB (K-DUR) PO SCH (05:50)
[2018-01-07] MEDS: POTASSIUM CL 10MEQ/50ML IVPB 50 ML IV SCH ×3 (05:50→07:20)
[2018-01-07 06:08] LABS: MAGNESIUM 1.9 MG/DL (1.8-2.4); PHOSPHORUS 2.8 MG/DL (2.3-4.7)
[2018-01-07] MEDS: MAGNESIUM 1 GM/100 ML IVPB 100 ML IV SCH (06:15)
--- NOTE | 2018-01-07 06:35 | Pulmonary Progress Note ---
Subjective Time Seen by Provider: 06:30 Subjective/Events-last exam Pt is more alert however still not following commands or communicate. Exam Exam Vital Signs Date Time Temp Pulse Resp B/P (MAP) Pulse Ox O2 Delivery O2 Flow Rate FiO2 01/07/18 06:00 70 35 156/94 (114) 97 Nasal Cannula 2.00 01/07/18 05:00 73 18 126/73 (90) 100 Nasal Cannula 2.00 01/07/18 04:00 99.3 75 18 117/74 (88) 99 Nasal Cannula 2.00 01/07/18 04:00 93 Nasal Cannula 2.00 01/07/18 03:00 82 21 120/63 (82) 100 Nasal Cannula 3.00 01/07/18 02:00 87 22 117/75 (89) 100 Nasal Cannula 3.00 01/07/18 01:48 96 Nasal Cannula 3.00 01/07/18 01:00 88 20 122/68 (86) 97 Nasal Cannula 3.00 01/07/18 01:00 82 01/07/18 00:00 93 Nasal Cannula 3.00 01/07/18 00:00 100.3 80 21 122/54 (76) 93 Nasal Cannula 3.00 01/06/18 23:00 95 Nasal Cannula 3.00 01/06/18 23:00 74 21 124/69 (87) 95 Nasal Cannula 3.00 01/06/18 22:00 76 19 135/65 (88) 98 Nasal Cannula 3.00 01/06/18 21:00 84 16 125/73 (90) 95 Nasal Cannula 3.00 01/06/18 20:00 98.3 78 18 126/68 (87) 99 Nasal Cannula 3.00 01/06/18 20:00 99 Nasal Cannula 3.00 01/06/18 19:31 94 Nasal Cannula 3.00 01/06/18 19:00 74 27 147/58 (87) 94 Nasal Cannula 3.00 01/06/18 19:00 81 01/06/18 18:00 86 26 126/86 (99) 95 Nasal Cannula 3.00 01/06/18 17:00 73 26 132/74 (93) 93 Nasal Cannula 3.00 01/06/18 16:59 96 Nasal Cannula 3.00 01/06/18 16:00 78 23 138/77 (97) 94 Nasal Cannula 3.00 01/06/18 15:00 82 27 147/86 (106) 95 Nasal Cannula 3.00 01/06/18 14:20 97 Nasal Cannula 3.00 01/06/18 14:00 78 31 144/82 (102) 95 Nasal Cannula 3.00 01/06/18 13:00 86 28 142/81 (101) 98 Nasal Cannula 3.00 01/06/18 13:00 73 01/06/18 12:59 96 Nasal Cannula 3.00 01/06/18 12:59 99.0 Nasal Cannula 3.00 01/06/18 12:00 80 19 130/103 (112) 97 Nasal Cannula 3.00 01/06/18 11:00 82 26 100 Nasal Cannula 3.00 01/06/18 10:23 100 Nasal Cannula 3.00 01/06/18 10:00 77 29 133/83 (100) 100 Nasal Cannula 3.00 01/06/18 09:00 74 29 138/81 (100) 97 Nasal Cannula 3.00 01/06/18 08:23 99.8 Nasal Cannula 3.00 01/06/18 08:23 96 Nasal Cannula 3.00 01/06/18 08:00 75 28 150/77 (101) 97 Nasal Cannula 3.00 01/06/18 07:31 90 Nasal Cannula 3.00 01/06/18 07:00 79 31 135/70 (91) 98 Nasal Cannula 3.00 01/06/18 07:00 77 I & O 01/07/18 07:00 Intake Total 1800 ml Output Total 5025 ml Balance -3225 ml General Appearance: No Apparent Distress, WD/WN HEENT: Normal ENT Inspection Neck: Normal Inspection Respiratory: Lungs Clear, No Accessory Muscle Use, No Respiratory Distress Cardiovascular: Regular Rate, Rhythm, No Murmur Capillary Refill: Less Than 3 Seconds Gastrointestinal: non tender, soft Extremity: Normal Range of Motion, Non Tender, Pedal Edema Skin: Normal Color, Warm/Dry Results Lab Laboratory Tests 01/06/18 03:50 01/07/18 03:14 Assessment/Plan Assessment/Plan Severe sepsis secondary to pneumonia -mosquera culture reviewed -Vanco and Zosyn Hypernatremia - probably secondary to dehydration - D5W -Will monitor close Pt failed swallow evaluation Acute respiratory failure with mucous plugging and pneumonia s/p bronchoscopy - HTN with bradycardia -Hydralazine PRN for SBP >165 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 Pt is more alert however does not follow commands, communicate, and he has lost his ability to swallow. He is currently NPO secondary to dysphagia. Pt's overall prognosis is very poor. I will have swallow study repeated today. I doubt he will pass. If he does not pass swallow eval will have NG reinserted and start TF. Guardian is currently working on making patient comfort care status however it has to go through the supervisor paint department. Pt is a good candidate for hospice care. 233 Critical Care: Critically Ill Patient ANUJA REYNOLDS DO Jan 07, 2018 06:35
[2018-01-07] MEDS ORDERED: PHARMACY TO DOSE IV SCH (06:45)
[2018-01-07] MEDS ORDERED: FUROSEMIDE 40 MG/4 ML INJ (LASIX) IVP NR (07:00)
[2018-01-07] MEDS: PIPERACILLIN SODIUM/TAZOBACTAM 4.5 GM in D5W 100 ML IVPB 100 ML IV SCH ×3 (07:21→23:07)
--- NOTE | 2018-01-07 07:34 | Diagnostic Imaging Report ---
INDICATION: Pneumonia. COMPARISON: 01/06/2018 FINDINGS: Single frontal radiographic view of the chest was obtained and demonstrates interval progression of right-sided consolidative airspace disease. Airspace disease now extends from the perihilar region to the right base. Left lung remains relatively clear. No large effusion or pneumothorax is seen on either side. Cardiac silhouette is mildly prominent. Pulmonary vasculature is within normal limits. Right internal jugular central venous catheter tip terminates in the SVC. Bony structures show no gross acute abnormalities. IMPRESSION: 1. Increasing infiltrates on the right. Continued followup is recommended. 2. Mild cardiomegaly. Dictated by: Dictated on workstation # [id number]
--- NOTE | 2018-01-07 07:38 | Progress Note (SOAP) ---
Subjective Time Seen by Provider: 07:35 Subjective/Events-last exam Patient more alert today. Dementia. Chest x-ray yesterday looks worse increase in right basilar infiltrate. Patient not communicating with his dementia Objective Exam Vital Signs Date Time Temp Pulse Resp B/P (MAP) Pulse Ox O2 Delivery O2 Flow Rate FiO2 01/07/18 06:00 70 35 156/94 (114) 97 Nasal Cannula 2.00 01/07/18 05:00 73 18 126/73 (90) 100 Nasal Cannula 2.00 01/07/18 04:00 99.3 75 18 117/74 (88) 99 Nasal Cannula 2.00 01/07/18 04:00 93 Nasal Cannula 2.00 01/07/18 03:00 82 21 120/63 (82) 100 Nasal Cannula 3.00 01/07/18 02:00 87 22 117/75 (89) 100 Nasal Cannula 3.00 01/07/18 01:48 96 Nasal Cannula 3.00 01/07/18 01:00 88 20 122/68 (86) 97 Nasal Cannula 3.00 01/07/18 01:00 82 01/07/18 00:00 93 Nasal Cannula 3.00 01/07/18 00:00 100.3 80 21 122/54 (76) 93 Nasal Cannula 3.00 01/06/18 23:00 95 Nasal Cannula 3.00 01/06/18 23:00 74 21 124/69 (87) 95 Nasal Cannula 3.00 01/06/18 22:00 76 19 135/65 (88) 98 Nasal Cannula 3.00 01/06/18 21:00 84 16 125/73 (90) 95 Nasal Cannula 3.00 01/06/18 20:00 98.3 78 18 126/68 (87) 99 Nasal Cannula 3.00 01/06/18 20:00 99 Nasal Cannula 3.00 01/06/18 19:31 94 Nasal Cannula 3.00 01/06/18 19:00 74 27 147/58 (87) 94 Nasal Cannula 3.00 01/06/18 19:00 81 01/06/18 18:00 86 26 126/86 (99) 95 Nasal Cannula 3.00 01/06/18 17:00 73 26 132/74 (93) 93 Nasal Cannula 3.00 01/06/18 16:59 96 Nasal Cannula 3.00 01/06/18 16:00 78 23 138/77 (97) 94 Nasal Cannula 3.00 01/06/18 15:00 82 27 147/86 (106) 95 Nasal Cannula 3.00 01/06/18 14:20 97 Nasal Cannula 3.00 01/06/18 14:00 78 31 144/82 (102) 95 Nasal Cannula 3.00 01/06/18 13:00 86 28 142/81 (101) 98 Nasal Cannula 3.00 01/06/18 13:00 73 01/06/18 12:59 96 Nasal Cannula 3.00 01/06/18 12:59 99.0 Nasal Cannula 3.00 01/06/18 12:00 80 19 130/103 (112) 97 Nasal Cannula 3.00 01/06/18 11:00 82 26 100 Nasal Cannula 3.00 01/06/18 10:23 100 Nasal Cannula 3.00 01/06/18 10:00 77 29 133/83 (100) 100 Nasal Cannula 3.00 01/06/18 09:00 74 29 138/81 (100) 97 Nasal Cannula 3.00 01/06/18 08:23 99.8 Nasal Cannula 3.00 01/06/18 08:23 96 Nasal Cannula 3.00 01/06/18 08:00 75 28 150/77 (101) 97 Nasal Cannula 3.00 I & O 01/07/18 07:00 Intake Total 1800 ml Output Total 5025 ml Balance -3225 ml Capillary Refill : Less Than 3 Seconds General Appearance: No Apparent Distress, WD/WN HEENT: Normal ENT Inspection Neck: Normal Inspection Respiratory: Normal Breath Sounds, No Accessory Muscle Use, No Respiratory Distress, Decreased Breath Sounds Results Lab Laboratory Tests 01/07/18 03:14 Laboratory Tests 01/06/18 14:36: Blood Gas Puncture Site L RAD, Blood Gas Patient Temperature 100.0, Arterial Blood pH 7.47H, Arterial Blood Partial Pressure CO2 29L, Arterial Blood Partial Pressure O2 80, Arterial Blood HCO3 21L, Arterial Blood Total CO2 21.7, Arterial Blood Oxygen Saturation 94, Arterial Blood Base Excess -2.2, Ralph Test YES-POS, Blood Gas Ventilator Setting NO, Blood Gas Inspired Oxygen 31 01/07/18 03:14: White Blood Count 14.8H, Red Blood Count 4.40, Hemoglobin 13.2L, Hematocrit 39L , Mean Corpuscular Volume 88, Mean Corpuscular Hemoglobin 30, Mean Corpuscular Hemoglobin Concent 34, Red Cell Distribution Width 13.1, Platelet Count 165, Mean Platelet Volume 10.0, Sodium Level 142, Potassium Level 3.5L, Chloride Level 111H, Carbon Dioxide Level 22, Anion Gap 9, Blood Urea Nitrogen 16, Creatinine 0.76, Estimat Glomerular Filtration Rate > 60, BUN/Creatinine Ratio 21, Glucose Level 92, Calcium Level 8.2L, Phosphorus Level 2.8, Magnesium Level 1.9 Microbiology 01/02/18 Blood Culture - Preliminary, Resulted No growth 01/02/18 MRSA Screen - Final, Complete MRSA not isolated 01/02/18 Urine Culture - Final, Complete NO GROWTH Assessment/Plan Assessment/Plan Assess & Plan/Chief Complaint Sepsis. Pneumonia. Hypernatremia. Acute respiratory failure with mucous plugging and pneumonia 01/05/18 Patient stable. . 01/06/18. Sepsis. Pneumonia. Acute respiratory. Hypertension. Bradycardia. Dementia. Patient off ventilator . . . Sepsis. Pneumonia. Acute respiratory failure. Hypertension. Bradycardia. Dementia. Patient looks better but chest x-ray yesterday looked worse Clinical Quality Measures Admission Status Admission Dx Severe sepsis secondary to pneumonia. Mucous plugs. Septic shock. Hypernatremia. Acute respiratory failure with mucous plug. Dementia Obtunded DVT/VTE Risk/Contraindication: Risk Factor Score Per Nursin RFS Level Per Nursing on Admit: 4+=Very High FELICIA HUYNH DO Jan 07, 2018 07:38
[2018-01-07] MEDS: PANTOPRAZOLE 40 MG/10 ML (PROTONIX) VIAL IV SCH (08:55)
[2018-01-07] MEDS: VANCOMYCIN 1500 MG/NS 500 ML IVPB IV SCH ×4 (08:55→19:59)
[2018-01-07] MEDS: ENOXAPARIN 40 MG/0.4 ML (LOVENOX) SYR SC SCH (08:56)
[2018-01-07] MEDS: FLUCONAZOLE 100 MG/50 ML IV SCH ×2 (09:11)
--- NOTE | 2018-01-07 16:45 | Speech Therapy Progress Note ---
Therapy Progress Note PATIENT SEATED IN CHAIR AT BEDSIDE WHEN THIS EXHAUST AND MUFFLER FITTER ARRIVED FOR TREATMENT VISIT. THE PATIENT WAS MUMBLING, INCOHERENT AND WAS NOT ORIENTATED. THE PATIENT UTILIZED A CLEAR GREETING AND SAID "YES" WHEN ASKED IF HE WAS DON. THE PATIENT HAD A STRONG COUGH REFLEX BUT WAS UNABLE TO SWALLOW HIS SECRETIONS FOLLOWING THIS COUGH. THIS EXHAUST AND MUFFLER FITTER PRESENTED THE PATIENT WITH A WET SPOON TO FACILITATE LIP MOVEMENT AND A SWALLOW REFLEX WITH DECREASED LARYNGEAL ELEVATION NOTED. DON WAS UNABLE TO FACILITATE A CONSISTENT SWALLOW REFLEX, LESS THAN 10 SECONDS. THE PATIENT THEN TOLERATED LARYNGEAL MASSAGE WITH VERY LITTLE RESPONSE FOR FACILITATION OF A SWALLOW. THIS EXHAUST AND MUFFLER FITTER FEELS THAT THE PATIENT SHOULD CONTINUE TO BE NPO, HE IS NOT SAFE FOR ANY INTAKE. HE IS AT HIGH RISK FOR ASPIRATION SECONDARY TO POOR AIRWAY PROTECTION AND SEVERE ORAL PHARYNGEAL DYSPHAGIA. SPEECH PATHOLOGY WILL CONTINUE WITH HIS POC FOR TREATMENT OF DYSPHAGIA NEXT WEEK. LUCHO ISRAEL Jan 07, 2018 16:45
[2018-01-07] MEDS: D5W 1000 ML IV SOLUTION 1,000 ML IV SCH (19:59)
[2018-01-08] VITALS (24 sets, daily range): BP systolic 112–162; BP diastolic 55–93
[2018-01-08] MEDS: RT-ALBUTEROL/IPRATROPIUM 3 ML (DUONEB) VIAL INH SCH ×6 (01:48→22:38)
[2018-01-08] MEDS: aCETylcysteine 20% (MUCOMYST) 30ML SOLN VIAL INH SCH ×6 (01:48→22:38)
[2018-01-08 03:14] LABS: BASOPHILS % (AUTO) 0 % (0-10); EOSINOPHILS # (AUTO) 0.2 10^3/uL (0.0-0.3); EOSINOPHILS % (AUTO) 1 % (0-10); HEMATOCRIT 38 % (40-54); HEMOGLOBIN 12.9 G/DL (13.3-17.7); LYMPHOCYTES # (AUTO) 1.1 X 10^3 (1.0-4.0); LYMPHOCYTES % (AUTO) 7 % (12-44); MEAN CORPUSCULAR HEMOGLOBIN 30 PG (25-34); MEAN CORPUSCULAR HGB CONC 34 G/DL (32-36); MEAN CORPUSCULAR VOLUME 88 FL (80-99); MONOCYTES # (AUTO) 1.1 X 10^3 (0.0-1.0); MONOCYTES % (AUTO) 7 % (0-12); NEUTROPHILS # (AUTO) 13.2 X 10^3 (1.8-7.8); NEUTROPHILS % (AUTO) 85 % (42-75); PLATELET COUNT 171 10^3/uL (130-400); RED BLOOD COUNT 4.34 10^6/uL (4.35-5.85); RED CELL DISTRIBUTION WIDTH 13.2 % (10.0-14.5); WHITE BLOOD COUNT 15.5 10^3/uL (4.3-11.0)
[2018-01-08 03:34] LABS: BAND NEUTROPHILS 0 %; BASOPHILS % (MANUAL) 0 %; EOSINOPHILS % (MANUAL) 1 %; LYMPHOCYTES % (MANUAL) 7 %; MONOCYTES % (MANUAL) 7 %; NEUTROPHILS % (MANUAL) 84 %; REACTIVE LYMPHOCYTES 1 %
[2018-01-08 03:35] LABS: BUN/CREATININE RATIO 24; CALCIUM 8.4 MG/DL (8.5-10.1); CARBON DIOXIDE 24 MMOL/L (21-32); CHLORIDE 110 MMOL/L (98-107); GFR ESTIMATED > 60; GLUCOSE 127 MG/DL (70-105); MAGNESIUM 2.1 MG/DL (1.8-2.4); PHOSPHORUS 2.7 MG/DL (2.3-4.7); RBC MORPH NORMAL; SODIUM 143 MMOL/L (135-145)
[2018-01-08] MEDS: MAGNESIUM 1 GM/100 ML IVPB 100 ML IV SCH (04:15)
[2018-01-08] MEDS: KCL 20 MEQ TAB (K-DUR) PO SCH (04:15)
[2018-01-08] MEDS ORDERED: POTASSIUM CL 10MEQ/50ML IVPB 50 ML IV ONE (04:15)
[2018-01-08] MEDS: POTASSIUM CL 10MEQ/50ML IVPB 50 ML IV SCH ×4 (04:15→06:21)
[2018-01-08] MEDS: PIPERACILLIN SODIUM/TAZOBACTAM 4.5 GM in D5W 100 ML IVPB 100 ML IV SCH ×3 (06:21→22:52)
[2018-01-08] MEDS: ENOXAPARIN 40 MG/0.4 ML (LOVENOX) SYR SC SCH (07:50)
[2018-01-08] MEDS: VANCOMYCIN 1500 MG/NS 500 ML IVPB IV SCH ×4 (07:50→20:11)
--- NOTE | 2018-01-08 07:52 | Pulmonary Progress Note ---
Subjective Date Seen by Provider: Jan 08, 2018 Time Seen by Provider: 07:52 Subjective/Events-last exam PT is having a lot of residual from TF and is not tolerating TF. Exam Exam Vital Signs Date Time Temp Pulse Resp B/P (MAP) Pulse Ox O2 Delivery O2 Flow Rate FiO2 01/08/18 06:42 100 Room Air 01/08/18 06:00 71 17 116/76 (89) 100 Room Air 01/08/18 05:00 75 15 138/55 (82) 100 Room Air 01/08/18 04:18 98.6 Room Air 01/08/18 04:00 95 Room Air 01/08/18 04:00 87 16 128/72 (90) 100 Room Air 01/08/18 03:00 84 22 126/72 (90) 100 Room Air 01/08/18 02:00 74 14 139/69 (92) 100 Room Air 01/08/18 01:48 100 Room Air 01/08/18 01:00 81 15 130/71 (90) 99 Room Air 01/08/18 01:00 86 01/08/18 00:23 98.2 Room Air 01/08/18 00:00 86 21 127/75 (92) 100 Room Air 01/08/18 00:00 97 Room Air 01/07/18 23:00 90 20 135/69 (91) 100 Room Air 01/07/18 22:00 85 21 113/57 (75) 99 Room Air 01/07/18 21:00 87 19 115/71 (86) 98 Room Air 01/07/18 20:00 97 Room Air 01/07/18 20:00 96 20 114/90 (98) 98 Room Air 01/07/18 19:50 98.4 Room Air 01/07/18 19:13 96 Room Air 01/07/18 19:00 96 20 124/70 (88) 98 Room Air 01/07/18 19:00 96 01/07/18 18:00 85 10 144/84 (104) 96 Room Air 01/07/18 17:00 98 22 142/89 (106) 94 Room Air 01/07/18 16:10 97 Room Air 01/07/18 16:00 94 26 137/92 (107) 94 Room Air 01/07/18 15:00 93 28 114/74 (87) 94 Room Air 01/07/18 14:00 91 26 127/89 (102) 100 Room Air 01/07/18 13:53 94 Room Air 01/07/18 13:00 89 01/07/18 13:00 89 30 124/69 (87) 100 Room Air 01/07/18 12:18 97 Room Air 01/07/18 12:00 91 18 130/73 (92) 97 Room Air 01/07/18 11:00 75 21 143/77 (99) 99 Room Air 01/07/18 10:54 98 Room Air 01/07/18 10:00 88 19 137/73 (94) 95 Room Air 01/07/18 09:00 84 19 125/69 (87) 98 Room Air 01/07/18 08:55 98.5 Room Air 01/07/18 08:55 97 Room Air 01/07/18 08:00 86 23 132/71 (91) 96 Nasal Cannula 2.00 I & O 01/08/18 06:59 Intake Total 1340 ml Output Total 4350 ml Balance -3010 ml General Appearance: No Apparent Distress, WD/WN HEENT: Normal ENT Inspection Neck: Normal Inspection Respiratory: Normal Breath Sounds, No Accessory Muscle Use, No Respiratory Distress, Decreased Breath Sounds Cardiovascular: Regular Rate, Rhythm, No Murmur Capillary Refill: Less Than 3 Seconds Gastrointestinal: non tender, soft Extremity: Normal Range of Motion, Non Tender, Pedal Edema Skin: Normal Color, Warm/Dry Results Lab Laboratory Tests 01/07/18 03:14 01/08/18 03:10 Assessment/Plan Assessment/Plan Severe sepsis secondary to pneumonia - pt cultured MSSA however started to decline when vanco was d/c'd -mosquera culture reviewed -Vanco and Zosyn -Diflucan Hypernatremia - probably secondary to dehydration - D5W -Will monitor close Pt failed swallow evaluation Acute respiratory failure with mucous plugging and pneumonia s/p bronchoscopy Dysphagia -NG tube reinserted and pt having a lot of residual TF. 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 Pt is more alert however does not follow commands, communicate, and he has lost his ability to swallow. He is currently NPO secondary to dysphagia. Pt's overall prognosis is very poor. Guardian is currently working on making patient comfort care status however it has to go through the magisterial district judge. Pt is a good candidate for hospice care. 233 Critical Care: Critically Ill Patient ANUJA REYNOLDS DO Jan 08, 2018 07:52
[2018-01-08] MEDS: FLUCONAZOLE 100 MG/50 ML IV SCH ×2 (08:00)
[2018-01-08] MEDS: PANTOPRAZOLE 40 MG/10 ML (PROTONIX) VIAL IV SCH (08:00)
--- NOTE | 2018-01-08 09:48 | Diagnostic Imaging Report ---
INDICATION: Pneumonia, followup. TECHNIQUE: Single view chest 3:30 AM. CORRELATION STUDY: 01/07/2018 FINDINGS: Gastric tube has been placed since the prior study, tip passing below the diaphragm and edge of the film. Right IJ central line, unchanged. Heart size is enlarged. Vasculature is relatively normal on followup. There has been improvement in aeration of the lung gregory, particularly the right lung base with some residual infiltrate and likely effusion however remaining at both lung bases. IMPRESSION: 1. Improved aeration of the lung gregory. The combination of effusion along with atelectasis or infiltrate at both lung bases, right greater left, however does remain. Dictated by: Dictated on workstation # [id number]
[2018-01-08] MEDS: SCOPOLAMINE 1.5 MG (TRANSDERM-SCOP) PATCH TOP SCH (10:01)
--- NOTE | 2018-01-08 10:52 | Progress Note-Hospitalist ---
Subjective HPI/CC On Admission Date Seen by Provider: Jan 08, 2018 Time Seen by Provider: 10:46 Subjective/Events-last exam Mr. Jackson opens eyes to verbal stimulation but can only render unintelligible mumbling when asked simple questions. He does not appear to be in acute distress but has audible rhonchi without labored appearing respiration. He is unable to follow simple commands. Objective Exam Vital Signs Vital Signs Date Time Temp Pulse Resp B/P (MAP) Pulse Ox O2 Delivery O2 Flow Rate FiO2 01/08/18 10:00 71 17 128/69 (88) 100 Room Air 01/08/18 04:18 98.6 01/07/18 08:00 2.00 01/05/18 09:59 21 Capillary Refill : Less Than 3 Seconds General Appearance: No Apparent Distress, Chronically ill Respiratory: Other (Coarse rhonchi throughout audible without stethoscope there is no evidence from mucous in the posterior pharynx although visualization difficult due to lack of patient's ability to follow commands. No wheezing noted no accessory muscle use. Tachypnea rate around 20) Cardiovascular: Regular Rate, Rhythm, Other (No murmur S3 or S4 appreciated but difficult to hear over respiratory congestion noises.) Extremity: Other (Extremities cool somewhat mottled 2+ edema to the level of the knees bilaterally) Results/Procedures Lab Laboratory Tests 01/08/18 03:10 Patient resulted labs reviewed. Assessment/Plan Assessment and Plan Assess & Plan/Chief Complaint 1. Patient appears to be in the process of dying secondary to the usual complications occurring in end-stage dementia including pneumonia likely aspirational in nature due to his dementia. The patient has a court-appointed DP LA in the process of obtaining DO NOT RESUSCITATE status through the court system. In the interim antibiotics are being continued with oxygen and the need for frequent suctioning. Extremely poor prognosis. Critical Care Critical Care: Critically Ill Patient Clinical Quality Measures DVT/VTE Risk/Contraindication: Risk Factor Score Per Nursin RFS Level Per Nursing on Admit: 4+=Very High DAVID CATES MD Jan 08, 2018 10:52
[2018-01-08] MEDS: D5W 1000 ML IV SOLUTION 1,000 ML IV SCH (22:52)
[2018-01-09] VITALS (22 sets, daily range): BP systolic 123–158; BP diastolic 69–97
[2018-01-09] MEDS: aCETylcysteine 20% (MUCOMYST) 30ML SOLN VIAL INH SCH ×6 (02:22→22:16)
[2018-01-09] MEDS: RT-ALBUTEROL/IPRATROPIUM 3 ML (DUONEB) VIAL INH SCH ×6 (02:22→22:15)
[2018-01-09 03:20] LABS: BASOPHILS % (AUTO) 0 % (0-10); EOSINOPHILS # (AUTO) 0.6 10^3/uL (0.0-0.3); EOSINOPHILS % (AUTO) 5 % (0-10); HEMATOCRIT 35 % (40-54); HEMOGLOBIN 12.1 G/DL (13.3-17.7); LYMPHOCYTES # (AUTO) 1.2 X 10^3 (1.0-4.0); LYMPHOCYTES % (AUTO) 11 % (12-44); MEAN CORPUSCULAR HEMOGLOBIN 30 PG (25-34); MEAN CORPUSCULAR HGB CONC 34 G/DL (32-36); MEAN CORPUSCULAR VOLUME 89 FL (80-99); MEAN PLATELET VOLUME 9.8 FL (7.4-10.4); MONOCYTES % (AUTO) 9 % (0-12); NEUTROPHILS # (AUTO) 8.6 X 10^3 (1.8-7.8); NEUTROPHILS % (AUTO) 75 % (42-75); PLATELET COUNT 179 10^3/uL (130-400); RED BLOOD COUNT 3.99 10^6/uL (4.35-5.85); RED CELL DISTRIBUTION WIDTH 12.9 % (10.0-14.5); WHITE BLOOD COUNT 11.5 10^3/uL (4.3-11.0)
[2018-01-09 03:49] LABS: BUN/CREATININE RATIO 24; CALCIUM 8.2 MG/DL (8.5-10.1); CARBON DIOXIDE 23 MMOL/L (21-32); CHLORIDE 110 MMOL/L (98-107); GFR ESTIMATED > 60; GLUCOSE 105 MG/DL (70-105); MAGNESIUM 2.1 MG/DL (1.8-2.4); PHOSPHORUS 2.7 MG/DL (2.3-4.7); POTASSIUM 3.4 MMOL/L (3.6-5.0); SODIUM 141 MMOL/L (135-145)
[2018-01-09] MEDS: MAGNESIUM 1 GM/100 ML IVPB 100 ML IV SCH (04:22)
[2018-01-09] MEDS: KCL 20 MEQ TAB (K-DUR) PO SCH (04:22)
[2018-01-09] MEDS: POTASSIUM CL 10MEQ/50ML IVPB 50 ML IV SCH ×3 (04:22→05:00)
[2018-01-09] MEDS: PIPERACILLIN SODIUM/TAZOBACTAM 4.5 GM in D5W 100 ML IVPB 100 ML IV SCH ×3 (06:53→16:11)
[2018-01-09] MEDS ORDERED: TROUGH ORDER-PHARMACY XX NR ×2 (07:00→21:00)
--- NOTE | 2018-01-09 07:49 | Pulmonary Progress Note ---
Subjective Time Seen by Provider: 07:48 Subjective/Events-last exam NO complications noted. Exam Exam Vital Signs Date Time Temp Pulse Resp B/P (MAP) Pulse Ox O2 Delivery O2 Flow Rate FiO2 01/09/18 06:59 100 Room Air 01/09/18 06:00 68 24 144/78 (100) 100 Room Air 01/09/18 05:00 69 20 137/82 (100) 98 Room Air 01/09/18 04:00 100 Room Air 01/09/18 04:00 65 22 135/74 (94) 98 Room Air 01/09/18 03:00 65 18 145/94 (111) 99 Room Air 01/09/18 02:23 99 Room Air 01/09/18 02:00 64 17 157/72 (100) 99 Room Air 01/09/18 01:00 67 13 151/88 (109) 100 Room Air 01/09/18 01:00 66 01/09/18 00:37 97.6 01/09/18 00:00 100 Room Air 01/09/18 00:00 63 20 129/74 (92) 100 Room Air 01/08/18 23:00 70 16 162/76 (104) 99 Room Air 01/08/18 22:38 99 Room Air 01/08/18 22:00 76 17 146/70 (95) 100 Room Air 01/08/18 21:00 71 19 112/93 (99) 97 Room Air 01/08/18 20:00 67 24 139/69 (92) 100 Room Air 01/08/18 20:00 100 Room Air 01/08/18 19:30 97.2 Room Air 01/08/18 19:00 67 14 135/90 (105) 99 Room Air 01/08/18 19:00 70 01/08/18 18:52 100 Room Air 01/08/18 18:00 70 14 129/90 (103) 100 Room Air 01/08/18 17:00 69 21 127/70 (89) 95 Room Air 01/08/18 16:00 70 16 122/70 (87) 100 Room Air 01/08/18 15:44 100 Room Air 01/08/18 15:43 99.0 Room Air 01/08/18 15:00 71 9 122/74 (90) 97 Room Air 01/08/18 14:59 99 Room Air 01/08/18 14:00 69 16 142/82 (102) 99 Room Air 01/08/18 13:00 74 12 114/55 (74) 100 Room Air 01/08/18 13:00 70 01/08/18 12:00 71 19 129/65 (86) 94 Room Air 01/08/18 12:00 99.1 01/08/18 12:00 Room Air 01/08/18 11:11 100 Room Air 01/08/18 11:00 72 19 126/85 (99) 93 Room Air 01/08/18 10:00 71 17 128/69 (88) 100 Room Air 01/08/18 09:00 74 16 128/72 (90) 98 Room Air 01/08/18 08:00 80 13 129/76 (93) 100 Room Air 01/08/18 07:50 98.5 01/08/18 07:50 Room Air I & O 01/09/18 07:00 Intake Total 1885 ml Output Total 1850 ml Balance 35 ml General Appearance: No Apparent Distress, Chronically ill HEENT: Normal ENT Inspection Neck: Normal Inspection Respiratory: Decreased Breath Sounds, Other (Coarse rhonchi throughout audible without stethoscope there is no evidence from mucous in the posterior pharynx although visualization difficult due to lack of patient's ability to follow commands. No wheezing noted no accessory muscle use. Tachypnea rate around 20) Cardiovascular: Regular Rate, Rhythm, Other (No murmur S3 or S4 appreciated but difficult to hear over respiratory congestion noises.) Capillary Refill: Less Than 3 Seconds Gastrointestinal: non tender, soft Extremity: Other (Extremities cool somewhat mottled 2+ edema to the level of the knees bilaterally) Skin: Normal Color, Warm/Dry Results Lab Laboratory Tests 01/08/18 03:10 01/09/18 03:13 Assessment/Plan Assessment/Plan Severe sepsis secondary to pneumonia - pt cultured MSSA however started to decline when vanco was d/c'd -mosquera culture reviewed -Vanco and Zosyn -Diflucan Hypernatremia - probably secondary to dehydration - D5W -Will monitor close Pt failed swallow evaluation Acute respiratory failure with mucous plugging and pneumonia s/p bronchoscopy Dysphagia -NG tube reinserted and pt having a lot of residual TF. 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 Pt is more alert however does not follow commands, communicate, and he has lost his ability to swallow. He is currently NPO secondary to dysphagia. Pt's overall prognosis is very poor. Guardian is currently working on making patient comfort care status however it has to go through the gypsum calciner. Pt is a good candidate for hospice care. 233 Critical Care: Critically Ill Patient ANUJA REYNOLDS DO Jan 09, 2018 07:49
--- NOTE | 2018-01-09 08:19 | Diagnostic Imaging Report ---
Procedure: Portable AP chest at 3:04. Indication: Pneumonia. Findings: The cardiomegaly and the bibasilar pneumonia/atelectasis and small bilateral pleural effusions seen on the prior exam of 12/31/2017 are again evident. The density along the periphery of the right lung base in the right costophrenic angle is somewhat greater than on the prior exam. The overall appearance of the lungs is otherwise stable. The mediastinum is not widened. The osseous structures are intact. The supportive tubes and lines are in good position. Impression: There has been some increase in the density along the periphery of the right lung base in the region of the costophrenic angle. Overall, there has been no significant change when compared to the prior study. A followup exam would be recommended for continued evaluation. Dictated by: Dictated on workstation # [id number]
[2018-01-09] MEDS: FLUCONAZOLE 100 MG/50 ML IV SCH ×2 (09:07)
[2018-01-09] MEDS: ENOXAPARIN 40 MG/0.4 ML (LOVENOX) SYR SC SCH (09:07)
[2018-01-09] MEDS: PANTOPRAZOLE 40 MG/10 ML (PROTONIX) VIAL IV SCH (09:07)
[2018-01-10] VITALS (19 sets, daily range): BP systolic 123–161; BP diastolic 63–112
[2018-01-10] MEDS: D5W 1000 ML IV SOLUTION 1,000 ML IV SCH (00:19)
[2018-01-10] MEDS: RT-ALBUTEROL/IPRATROPIUM 3 ML (DUONEB) VIAL INH SCH ×6 (02:25→23:19)
[2018-01-10] MEDS: aCETylcysteine 20% (MUCOMYST) 30ML SOLN VIAL INH SCH ×6 (02:25→23:20)
[2018-01-10 03:52] LABS: BASOPHILS % (AUTO) 0 % (0-10); EOSINOPHILS # (AUTO) 0.4 10^3/uL (0.0-0.3); EOSINOPHILS % (AUTO) 5 % (0-10); HEMATOCRIT 35 % (40-54); HEMOGLOBIN 11.9 G/DL (13.3-17.7); LYMPHOCYTES # (AUTO) 1.3 X 10^3 (1.0-4.0); LYMPHOCYTES % (AUTO) 15 % (12-44); MEAN CORPUSCULAR HEMOGLOBIN 30 PG (25-34); MEAN CORPUSCULAR HGB CONC 34 G/DL (32-36); MEAN CORPUSCULAR VOLUME 88 FL (80-99); MEAN PLATELET VOLUME 9.6 FL (7.4-10.4); MONOCYTES # (AUTO) 0.7 X 10^3 (0.0-1.0); MONOCYTES % (AUTO) 8 % (0-12); NEUTROPHILS # (AUTO) 6.2 X 10^3 (1.8-7.8); NEUTROPHILS % (AUTO) 72 % (42-75); PLATELET COUNT 210 10^3/uL (130-400); RED BLOOD COUNT 4.01 10^6/uL (4.35-5.85); RED CELL DISTRIBUTION WIDTH 12.8 % (10.0-14.5); WHITE BLOOD COUNT 8.7 10^3/uL (4.3-11.0)
[2018-01-10 04:10] LABS: BUN/CREATININE RATIO 19; CALCIUM 8.4 MG/DL (8.5-10.1); CARBON DIOXIDE 22 MMOL/L (21-32); CHLORIDE 108 MMOL/L (98-107); CREATININE SERUM 0.75 MG/DL (0.60-1.30); GFR ESTIMATED > 60; GLUCOSE 97 MG/DL (70-105); MAGNESIUM 2.1 MG/DL (1.8-2.4); PHOSPHORUS 2.6 MG/DL (2.3-4.7); POTASSIUM 3.5 MMOL/L (3.6-5.0); SODIUM 139 MMOL/L (135-145)
[2018-01-10] MEDS: POTASSIUM CL 10MEQ/50ML IVPB 50 ML IV SCH ×2 (04:20→04:29)
[2018-01-10] MEDS: KCL 20 MEQ TAB (K-DUR) PO SCH (04:29)
[2018-01-10] MEDS: MAGNESIUM 1 GM/100 ML IVPB 100 ML IV SCH (04:29)
--- NOTE | 2018-01-10 04:58 | Pulmonary Progress Note ---
Subjective Time Seen by Provider: 05:48 Subjective/Events-last exam No complications noted. Exam Exam Vital Signs Date Time Temp Pulse Resp B/P (MAP) Pulse Ox O2 Delivery O2 Flow Rate FiO2 01/10/18 04:00 97.9 01/10/18 04:00 100 Room Air 01/10/18 03:00 62 19 152/112 (125) 100 Room Air 01/10/18 02:27 95 Room Air 01/10/18 02:00 50 17 147/80 (102) Room Air 01/10/18 01:00 56 11 141/85 (103) 100 Room Air 01/10/18 01:00 56 01/10/18 00:00 64 19 145/73 (97) 100 Room Air 01/10/18 00:00 98.3 01/10/18 00:00 100 Room Air 01/09/18 23:00 59 23 140/69 (92) 98 Room Air 01/09/18 22:17 99 Room Air 01/09/18 22:00 62 21 141/80 (100) 99 Room Air 01/09/18 21:00 56 24 158/82 (107) 100 Room Air 01/09/18 20:00 98.4 62 23 142/80 (100) 100 Room Air 01/09/18 20:00 100 Room Air 01/09/18 19:00 62 19 141/75 (97) 100 Room Air 01/09/18 19:00 62 01/09/18 18:05 100 Room Air 01/09/18 18:00 57 24 151/85 (107) 99 Room Air 01/09/18 17:00 65 19 158/88 (111) 99 Room Air 01/09/18 16:00 100 Room Air 01/09/18 16:00 69 13 148/83 (104) 99 Room Air 01/09/18 16:00 98.6 01/09/18 15:00 66 15 123/97 (106) 98 Room Air 01/09/18 14:36 98 Room Air 01/09/18 14:00 64 19 134/77 (96) 100 Room Air 01/09/18 13:00 72 01/09/18 12:00 97.6 01/09/18 12:00 100 Room Air 01/09/18 11:00 64 23 126/77 (93) 100 Room Air 01/09/18 10:17 100 Room Air 01/09/18 10:00 61 13 137/82 (100) 99 Room Air 01/09/18 09:00 84 21 154/79 (104) 98 Room Air 01/09/18 08:00 100 Room Air 01/09/18 08:00 69 19 158/80 (106) 100 Room Air 01/09/18 07:00 66 17 143/84 (103) 100 Room Air 01/09/18 07:00 96.9 01/09/18 07:00 65 01/09/18 07:00 96.9 01/09/18 06:59 100 Room Air 01/09/18 06:00 68 24 144/78 (100) 100 Room Air 01/09/18 05:00 69 20 137/82 (100) 98 Room Air I & O 01/10/18 07:00 Intake Total 1000 ml Output Total 2175 ml Balance -1175 ml General Appearance: No Apparent Distress, Chronically ill HEENT: Normal ENT Inspection Neck: Normal Inspection Respiratory: Decreased Breath Sounds, Other (Coarse rhonchi throughout audible without stethoscope there is no evidence from mucous in the posterior pharynx although visualization difficult due to lack of patient's ability to follow commands. No wheezing noted no accessory muscle use. Tachypnea rate around 20) Cardiovascular: Regular Rate, Rhythm, Other (No murmur S3 or S4 appreciated but difficult to hear over respiratory congestion noises.) Capillary Refill: Less Than 3 Seconds Gastrointestinal: non tender, soft Extremity: Other (Extremities cool somewhat mottled 2+ edema to the level of the knees bilaterally) Skin: Normal Color, Warm/Dry Results Lab Laboratory Tests 01/09/18 03:13 01/10/18 03:45 Assessment/Plan Assessment/Plan Severe sepsis secondary to pneumonia - pt cultured MSSA however started to decline when vanco was d/c'd -mosquera culture reviewed -Vanco and Zosyn -Diflucan Hypernatremia - probably secondary to dehydration - D5W -Will monitor close Pt failed swallow evaluation Acute respiratory failure with mucous plugging and pneumonia s/p bronchoscopy Dysphagia -NG tube reinserted and pt having a lot of residual TF. 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 Pt is more alert however does not follow commands, communicate, and he has lost his ability to swallow. He is currently NPO secondary to dysphagia. Pt's overall prognosis is very poor. Guardian is currently working on making patient comfort care status however it has to go through the concession manager. Pt is a good candidate for hospice care. 233 Critical Care: Critically Ill Patient ANUJA REYNOLDS DO Jan 10, 2018 04:58
--- NOTE | 2018-01-10 07:40 | Progress Note (SOAP) ---
Subjective Time Seen by Provider: 07:20 Subjective/Events-last exam Patient resting comfortably. Patient will open his eyes and not communicating. Patient failed swallow study. Patient has nasogastric tube in Objective Exam Vital Signs Date Time Temp Pulse Resp B/P (MAP) Pulse Ox O2 Delivery O2 Flow Rate FiO2 01/10/18 07:02 96 Room Air 01/10/18 07:00 56 01/10/18 06:00 62 16 154/67 (96) 100 Room Air 01/10/18 05:00 58 18 142/64 (90) 100 Room Air 01/10/18 04:00 97.9 01/10/18 04:00 100 Room Air 01/10/18 04:00 54 22 136/76 (96) 99 Room Air 01/10/18 03:00 62 19 152/112 (125) 100 Room Air 01/10/18 02:27 95 Room Air 01/10/18 02:00 50 17 147/80 (102) Room Air 01/10/18 01:00 56 11 141/85 (103) 100 Room Air 01/10/18 01:00 56 01/10/18 00:00 64 19 145/73 (97) 100 Room Air 01/10/18 00:00 98.3 01/10/18 00:00 100 Room Air 01/09/18 23:00 59 23 140/69 (92) 98 Room Air 01/09/18 22:17 99 Room Air 01/09/18 22:00 62 21 141/80 (100) 99 Room Air 01/09/18 21:00 56 24 158/82 (107) 100 Room Air 01/09/18 20:00 98.4 62 23 142/80 (100) 100 Room Air 01/09/18 20:00 100 Room Air 01/09/18 19:00 62 19 141/75 (97) 100 Room Air 01/09/18 19:00 62 01/09/18 18:05 100 Room Air 01/09/18 18:00 57 24 151/85 (107) 99 Room Air 01/09/18 17:00 65 19 158/88 (111) 99 Room Air 01/09/18 16:00 100 Room Air 01/09/18 16:00 69 13 148/83 (104) 99 Room Air 01/09/18 16:00 98.6 01/09/18 15:00 66 15 123/97 (106) 98 Room Air 01/09/18 14:36 98 Room Air 01/09/18 14:00 64 19 134/77 (96) 100 Room Air 01/09/18 13:00 72 01/09/18 12:00 97.6 01/09/18 12:00 100 Room Air 01/09/18 11:00 64 23 126/77 (93) 100 Room Air 01/09/18 10:17 100 Room Air 01/09/18 10:00 61 13 137/82 (100) 99 Room Air 01/09/18 09:00 84 21 154/79 (104) 98 Room Air 01/09/18 08:00 100 Room Air 01/09/18 08:00 69 19 158/80 (106) 100 Room Air I & O 01/10/18 07:00 Intake Total 1190 ml Output Total 3175 ml Balance -1985 ml Capillary Refill : Less Than 3 Seconds General Appearance: No Apparent Distress, WD/WN HEENT: Normal ENT Inspection Neck: Normal Inspection Respiratory: No Accessory Muscle Use, No Respiratory Distress Cardiovascular: Regular Rate, Rhythm, No Murmur Gastrointestinal: non tender, soft Results Lab Laboratory Tests 01/10/18 03:45 Laboratory Tests 01/09/18 07:55: Vancomycin Level Trough 25.5*H 01/09/18 21:50: Vancomycin Level Trough 14.6 01/10/18 03:45: White Blood Count 8.7, Red Blood Count 4.01L, Hemoglobin 11.9L, Hematocrit 35L, Mean Corpuscular Volume 88, Mean Corpuscular Hemoglobin 30, Mean Corpuscular Hemoglobin Concent 34, Red Cell Distribution Width 12.8, Platelet Count 210, Mean Platelet Volume 9.6, Neutrophils (%) (Auto) 72, Lymphocytes (%) (Auto) 15, Monocytes (%) (Auto) 8, Eosinophils (%) (Auto) 5, Basophils (%) (Auto) 0, Neutrophils # (Auto) 6.2, Lymphocytes # (Auto) 1.3, Monocytes # (Auto) 0.7, Eosinophils # (Auto) 0.4H, Basophils # (Auto) 0.0, Sodium Level 139, Potassium Level 3.5L, Chloride Level 108H, Carbon Dioxide Level 22, Anion Gap 9, Blood Urea Nitrogen 14, Creatinine 0.75, Estimat Glomerular Filtration Rate > 60, BUN/ Creatinine Ratio 19, Glucose Level 97, Calcium Level 8.4L, Phosphorus Level 2.6 , Magnesium Level 2.1 Microbiology 01/02/18 Blood Culture - Final, Complete No growth 01/02/18 MRSA Screen - Final, Complete MRSA not isolated 01/02/18 Urine Culture - Final, Complete NO GROWTH Assessment/Plan Assessment/Plan Assess & Plan/Chief Complaint Sepsis. Pneumonia. Hypernatremia. Acute respiratory failure with mucous plugging and pneumonia 01/05/18 Patient stable. . 01/06/18. Sepsis. Pneumonia. Acute respiratory. Hypertension. Bradycardia. Dementia. Patient off ventilator . . . Sepsis. Pneumonia. Acute respiratory failure. Hypertension. Bradycardia. Dementia. Patient looks better but chest x-ray yesterday looked worse . . 01/10/18.. Sepsis. Pneumonia. Acute respiratory failure. Hypertension. Bradycardia. Dementia. To have another swallow study by speech therapy. Chest x-ray yesterday looked worse Clinical Quality Measures Admission Status Admission Dx Severe sepsis secondary to pneumonia. Mucous plugs. Septic shock. Hypernatremia. Acute respiratory failure with mucous plug. Dementia Obtunded DVT/VTE Risk/Contraindication: Risk Factor Score Per Nursin RFS Level Per Nursing on Admit: 4+=Very High FELICIA HUYNH DO Jan 10, 2018 07:40
[2018-01-10] MEDS: FLUCONAZOLE 100 MG/50 ML IV SCH ×2 (09:21)
[2018-01-10] MEDS: ENOXAPARIN 40 MG/0.4 ML (LOVENOX) SYR SC SCH (09:21)
[2018-01-10] MEDS: PANTOPRAZOLE 40 MG/10 ML (PROTONIX) VIAL IV SCH (09:21)
--- NOTE | 2018-01-10 10:27 | Diagnostic Imaging Report ---
INDICATION: Sepsis. COMPARISON: 01/09/2018. FINDINGS: The right infrahilar and basilar infiltrates are better visualized today, suspect for pneumonia. A catheter is at the SVC. An enteric catheter is noted. An OG catheter goes into the distal stomach. IMPRESSION: Likely increased infiltrate in the right lower lobe. Dictated by: Dictated on workstation # [id number]
--- NOTE | 2018-01-10 13:20 | Speech Therapy Progress Note ---
Therapy Progress Note Speech pathology consultation for swallow re-evaluation noted. Per RN (and clinician consult), there is some confusion regarding "swing bed status"- which is displayed on this clinician's orders. The RN stated she would be looking into this status change and updating the patient appropriately. Upon entrance to the patient's room, the RN assisted the clinician in placing the patient upright in bed. The patient did not open his eyes or verbalize to the clinician. With maximum clinician verbal cueing, the patient was asked to open mouth and/or participate in the oral mechanism examination. The patient did not follow any instructions. A moist spoon was raised to the patient's lips on five occasions. Each occasion, the patient pursed his lips and did not attempt to remove any substance from the spoon. Regardless of maximum clinician cueing, the patient would not participate in the evaluation and remained with eyes closed. Due to absent participation and reduced alertness, the patient remains inappropriate for PO intake. The patient should remain NPO at this time while continuing to receive total nutrition, hydration, and medication via NG tube. THAO TREVIZO Jan 10, 2018 13:20
[2018-01-10] MEDS: PIPERACILLIN SODIUM/TAZOBACTAM 4.5 GM in D5W 100 ML IVPB 100 ML IV SCH ×2 (14:44→22:19)
[2018-01-10] MEDS: VANCOMYCIN 1 GM/NS 250 ML IVPB IV SCH ×2 (15:23)
--- NOTE | 2018-01-10 17:55 | Diagnostic Imaging Report ---
INDICATION: Evaluate tube placement. FINDINGS: There is cardiomegaly. There is mild venous congestion. There is patchy right basilar infiltrate. There is no pleural effusion or pneumothorax. Mediastinum is unremarkable. Lines and tubes are in satisfactory position. IMPRESSION: Right basilar infiltrate suspect for pneumonia. Cardiomegaly and mild venous congestion. Dictated by: Dictated on workstation # [id number]
[2018-01-11 00:52] VITALS: BP 151/67
[2018-01-11] MEDS: aCETylcysteine 20% (MUCOMYST) 30ML SOLN VIAL INH SCH ×6 (03:09→21:07)
[2018-01-11] MEDS: RT-ALBUTEROL/IPRATROPIUM 3 ML (DUONEB) VIAL INH SCH ×6 (03:09→21:07)
[2018-01-11] MEDS: VANCOMYCIN 1 GM/NS 250 ML IVPB IV SCH ×4 (04:30→17:11)
[2018-01-11 04:36] VITALS: BP 151/71
[2018-01-11] MEDS: PIPERACILLIN SODIUM/TAZOBACTAM 4.5 GM in D5W 100 ML IVPB 100 ML IV SCH ×3 (06:31→22:24)
--- NOTE | 2018-01-11 07:31 | Progress Note (SOAP) ---
Subjective Time Seen by Provider: 07:30 Subjective/Events-last exam Patient keeping his eyes closed. Patient will open his eyes with voice. Patient failed for the second time swallow exam by speech therapy. Patient has severe dementia. Patient candidate for hospice Objective Exam Vital Signs Date Time Temp Pulse Resp B/P (MAP) Pulse Ox O2 Delivery O2 Flow Rate FiO2 01/11/18 04:36 97.5 59 18 151/71 (97) 97 Room Air 01/11/18 03:10 92 Room Air 01/11/18 00:52 98.0 65 18 151/67 (95) 98 Room Air 01/10/18 23:20 96 Room Air 01/10/18 21:00 Room Air 01/10/18 19:56 98.5 66 18 131/63 (85) 95 Room Air 01/10/18 19:27 94 Room Air 01/10/18 18:30 Room Air 01/10/18 17:00 60 10 123/82 (96) 100 Room Air 01/10/18 16:45 Room Air 01/10/18 16:45 98.6 Room Air 01/10/18 16:00 68 10 144/72 (96) 100 Room Air 01/10/18 15:00 61 22 133/85 (101) 100 Room Air 01/10/18 14:00 58 31 137/83 (101) 100 Room Air 01/10/18 13:59 96 Room Air 01/10/18 13:00 60 15 155/72 (99) 100 Room Air 01/10/18 13:00 56 01/10/18 12:30 Room Air 01/10/18 12:30 98.7 Room Air 01/10/18 12:00 60 13 151/78 (102) 100 Room Air 01/10/18 11:00 60 19 129/87 (101) 100 Room Air 01/10/18 10:24 96 Room Air 01/10/18 10:00 59 20 145/82 (103) 100 Room Air 01/10/18 09:00 58 13 133/74 (93) 100 Room Air 01/10/18 08:05 98.6 Room Air 01/10/18 08:05 Room Air 01/10/18 08:00 61 14 154/80 (104) 99 Room Air I & O 01/11/18 07:00 Intake Total 663 ml Output Total 2775 ml Balance -2112 ml Capillary Refill : Less Than 3 Seconds General Appearance: No Apparent Distress, WD/WN Results Lab Microbiology 01/02/18 Blood Culture - Final, Complete No growth 01/02/18 MRSA Screen - Final, Complete MRSA not isolated 01/02/18 Urine Culture - Final, Complete NO GROWTH Assessment/Plan Assessment/Plan Assess & Plan/Chief Complaint Sepsis. Pneumonia. Hypernatremia. Acute respiratory failure with mucous plugging and pneumonia 01/05/18 Patient stable. . 01/06/18. Sepsis. Pneumonia. Acute respiratory. Hypertension. Bradycardia. Dementia. Patient off ventilator . . . Sepsis. Pneumonia. Acute respiratory failure. Hypertension. Bradycardia. Dementia. Patient looks better but chest x-ray yesterday looked worse . . 01/10/18.. Sepsis. Pneumonia. Acute respiratory failure. Hypertension. Bradycardia. Dementia. To have another swallow study by speech therapy. Chest x-ray yesterday looked worse. . 01/11/18. Sepsis. Pneumonia. Acute respiratory failure area Hypertension. Severe dementia. Patient will need. Patient candidate for hospice. phlebotomy services technician to get involved Clinical Quality Measures Admission Status Admission Dx Severe sepsis secondary to pneumonia. Mucous plugs. Septic shock. Hypernatremia. Acute respiratory failure with mucous plug. Dementia Obtunded DVT/VTE Risk/Contraindication: Risk Factor Score Per Nursin RFS Level Per Nursing on Admit: 4+=Very High FELICIA HUYNH DO January 11, 2018 07:31
[2018-01-11 08:00] VITALS: BP 144/67
[2018-01-11] MEDS: PANTOPRAZOLE 40 MG/10 ML (PROTONIX) VIAL IV SCH (08:15)
[2018-01-11] MEDS: ENOXAPARIN 40 MG/0.4 ML (LOVENOX) SYR SC SCH (08:15)
[2018-01-11] MEDS: SCOPOLAMINE 1.5 MG (TRANSDERM-SCOP) PATCH TOP SCH (08:15)
[2018-01-11] MEDS: PATCH REMOVAL TP SCH (08:15)
[2018-01-11] MEDS: FLUCONAZOLE 100 MG/50 ML IV SCH ×2 (08:44)
--- NOTE | 2018-01-11 09:29 | Diagnostic Imaging Report ---
Indication: Pneumonia. Comparison: Compared to 01/10. Findings: Bilateral lower lobe infiltrates greater right, not substantially changed. There does appear to be at least a small right pleural effusion. Upper limits heart size stable. No pneumothorax. OG catheter goes beneath the diaphragm into the stomach. A right IJ at the SVC. No pneumothorax. Impression: Lower lobe infiltrates greater right and support apparatus unchanged. Dictated by: Dictated on workstation # [id number]
--- NOTE | 2018-01-11 11:32 | Pulmonary Progress Note ---
Subjective Time Seen by Provider: 07:32 Subjective/Events-last exam c/o SOB. Exam Exam Vital Signs Date Time Temp Pulse Resp B/P (MAP) Pulse Ox O2 Delivery O2 Flow Rate FiO2 01/11/18 10:46 93 Room Air 01/11/18 09:21 Room Air 01/11/18 08:00 97.0 58 18 144/67 (92) 98 Room Air 01/11/18 07:56 96 Room Air 01/11/18 04:36 97.5 59 18 151/71 (97) 97 Room Air 01/11/18 03:10 92 Room Air 01/11/18 00:52 98.0 65 18 151/67 (95) 98 Room Air 01/10/18 23:20 96 Room Air 01/10/18 21:00 Room Air 01/10/18 19:56 98.5 66 18 131/63 (85) 95 Room Air 01/10/18 19:27 94 Room Air 01/10/18 18:30 Room Air 01/10/18 17:00 60 10 123/82 (96) 100 Room Air 01/10/18 16:45 Room Air 01/10/18 16:45 98.6 Room Air 01/10/18 16:00 68 10 144/72 (96) 100 Room Air 01/10/18 15:00 61 22 133/85 (101) 100 Room Air 01/10/18 14:00 58 31 137/83 (101) 100 Room Air 01/10/18 13:59 96 Room Air 01/10/18 13:00 60 15 155/72 (99) 100 Room Air 01/10/18 13:00 56 01/10/18 12:30 Room Air 01/10/18 12:30 98.7 Room Air 01/10/18 12:00 60 13 151/78 (102) 100 Room Air I & O 01/11/18 07:00 Intake Total 663 ml Output Total 2775 ml Balance -2112 ml General Appearance: No Apparent Distress, WD/WN HEENT: Normal ENT Inspection Neck: Normal Inspection Respiratory: No Accessory Muscle Use, No Respiratory Distress Cardiovascular: Regular Rate, Rhythm, No Murmur Capillary Refill: Less Than 3 Seconds Gastrointestinal: non tender, soft Extremity: Other (Extremities cool somewhat mottled 2+ edema to the level of the knees bilaterally) Skin: Normal Color, Warm/Dry Results Lab Laboratory Tests 01/10/18 03:45 Assessment/Plan Assessment/Plan Severe sepsis secondary to pneumonia - pt cultured MSSA however started to decline when vanco was d/c'd -mosquera culture reviewed -Vanco and Zosyn -Diflucan Hypernatremia - probably secondary to dehydration - D5W -Will monitor close Pt failed swallow evaluation Acute respiratory failure with mucous plugging and pneumonia s/p bronchoscopy Dysphagia -NG tube reinserted and pt having a lot of residual TF. 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 Pt is more alert however does not follow commands, communicate, and he has lost his ability to swallow. He is currently NPO secondary to dysphagia. Pt's overall prognosis is very poor. Guardian is currently working on making patient comfort care status however it has to go through the bankruptcy judge. Pt is a good candidate for hospice care. 233 Critical Care: Critically Ill Patient ANUJA REYNOLDS DO January 11, 2018 11:32
[2018-01-11 12:00] VITALS: BP 125/66
[2018-01-11] MEDS: D5W 1000 ML IV SOLUTION 1,000 ML IV SCH ×2 (12:17→22:24)
[2018-01-11] MEDS ORDERED: TROUGH ORDER-PHARMACY XX NR (14:15)
[2018-01-11 16:41] VITALS: BP 124/58
--- NOTE | 2018-01-11 18:46 | Diagnostic Imaging Report ---
INDICATION: NG tube placement. TIME OF EXAM: 6:28 PM COMPARISON: Correlation is made with prior study from earlier the same day. FINDINGS: NG tube passes below the diaphragm. Right IJ line has tip overlying the SVC. There is continued airspace infiltrate in the right base suggestive of pneumonia. No effusion or pneumothorax identified. IMPRESSION: NG tube appears to be in the stomach. Right basilar infiltrate is stable. Dictated by: Dictated on workstation # [id number]
[2018-01-11 19:54] VITALS: BP 134/62
[2018-01-12] VITALS (7 sets, daily range): BP systolic 115–146; BP diastolic 56–78
[2018-01-12] MEDS: aCETylcysteine 20% (MUCOMYST) 30ML SOLN VIAL INH SCH ×6 (01:23→22:39)
[2018-01-12] MEDS: RT-ALBUTEROL/IPRATROPIUM 3 ML (DUONEB) VIAL INH SCH ×6 (01:23→22:39)
[2018-01-12] MEDS: VANCOMYCIN 1 GM/NS 250 ML IVPB IV SCH ×2 (02:22)
[2018-01-12] MEDS: PIPERACILLIN SODIUM/TAZOBACTAM 4.5 GM in D5W 100 ML IVPB 100 ML IV SCH (05:47)
--- NOTE | 2018-01-12 07:24 | Progress Note (SOAP) ---
Subjective Time Seen by Provider: 07:20 Subjective/Events-last exam Patient resting comfortably. Patient opens eyes today. Patient does not communicate. Waiting for judged to sign order Objective Exam Vital Signs Date Time Temp Pulse Resp B/P (MAP) Pulse Ox O2 Delivery O2 Flow Rate FiO2 01/12/18 06:51 95 Room Air 01/12/18 03:07 98.5 55 18 115/56 (75) 96 Room Air 01/12/18 01:23 95 Room Air 01/12/18 00:01 97.9 68 17 142/75 (97) 98 Room Air 01/11/18 21:07 97 Room Air 01/11/18 21:00 Room Air 01/11/18 19:54 97.1 58 16 134/62 (86) 97 01/11/18 16:41 96.2 56 14 124/58 (80) 94 01/11/18 13:52 97 Room Air 01/11/18 12:00 97.5 55 16 125/66 (85) 93 Room Air 01/11/18 10:46 93 Room Air 01/11/18 09:21 Room Air 01/11/18 08:00 97.0 58 18 144/67 (92) 98 Room Air 01/11/18 07:56 96 Room Air I & O 01/12/18 07:00 Intake Total 2963 ml Output Total 2100 ml Balance 863 ml Capillary Refill : Less Than 3 Seconds General Appearance: No Apparent Distress, WD/WN Respiratory: Lungs Clear, No Accessory Muscle Use, No Respiratory Distress Cardiovascular: Regular Rate, Rhythm Results Lab Laboratory Tests 01/11/18 15:00: Vancomycin Level Trough 16.5 Microbiology 01/02/18 Blood Culture - Final, Complete No growth 01/02/18 MRSA Screen - Final, Complete MRSA not isolated 01/02/18 Urine Culture - Final, Complete NO GROWTH Assessment/Plan Assessment/Plan Assess & Plan/Chief Complaint Sepsis. Pneumonia. Hypernatremia. Acute respiratory failure with mucous plugging and pneumonia 01/05/18 Patient stable. . 01/06/18. Sepsis. Pneumonia. Acute respiratory. Hypertension. Bradycardia. Dementia. Patient off ventilator . . . Sepsis. Pneumonia. Acute respiratory failure. Hypertension. Bradycardia. Dementia. Patient looks better but chest x-ray yesterday looked worse . . 01/10/18.. Sepsis. Pneumonia. Acute respiratory failure. Hypertension. Bradycardia. Dementia. To have another swallow study by speech therapy. Chest x-ray yesterday looked worse. . 01/11/18. Sepsis. Pneumonia. Acute respiratory failure area Hypertension. Severe dementia. Patient will need. Patient candidate for hospice. litigation services manager to get involved. . 01/12/18. Sepsis resolved. Acute respiratory failure resolved. Severe dementia. Waiting for gesture sign orders for hospice Clinical Quality Measures Admission Status Admission Dx Severe sepsis secondary to pneumonia. Mucous plugs. Septic shock. Hypernatremia. Acute respiratory failure with mucous plug. Dementia Obtunded DVT/VTE Risk/Contraindication: Risk Factor Score Per Nursin RFS Level Per Nursing on Admit: 4+=Very High FELICIA HUYNH DO January 12, 2018 07:24
--- NOTE | 2018-01-12 07:28 | Pulmonary Progress Note ---
Subjective Time Seen by Provider: 07:24 Subjective/Events-last exam persistent SOB however improved. Exam Exam Vital Signs Date Time Temp Pulse Resp B/P (MAP) Pulse Ox O2 Delivery O2 Flow Rate FiO2 01/12/18 06:51 95 Room Air 01/12/18 03:07 98.5 55 18 115/56 (75) 96 Room Air 01/12/18 01:23 95 Room Air 01/12/18 00:01 97.9 68 17 142/75 (97) 98 Room Air 01/11/18 21:07 97 Room Air 01/11/18 21:00 Room Air 01/11/18 19:54 97.1 58 16 134/62 (86) 97 01/11/18 16:41 96.2 56 14 124/58 (80) 94 01/11/18 13:52 97 Room Air 01/11/18 12:00 97.5 55 16 125/66 (85) 93 Room Air 01/11/18 10:46 93 Room Air 01/11/18 09:21 Room Air 01/11/18 08:00 97.0 58 18 144/67 (92) 98 Room Air 01/11/18 07:56 96 Room Air I & O 01/12/18 07:00 Intake Total 2963 ml Output Total 2100 ml Balance 863 ml General Appearance: No Apparent Distress, WD/WN HEENT: Normal ENT Inspection Neck: Normal Inspection Respiratory: Lungs Clear, No Accessory Muscle Use, No Respiratory Distress Cardiovascular: Regular Rate, Rhythm Capillary Refill: Less Than 3 Seconds Gastrointestinal: non tender, soft Extremity: Other (Extremities cool somewhat mottled 2+ edema to the level of the knees bilaterally) Skin: Normal Color, Warm/Dry Assessment/Plan Assessment/Plan Severe sepsis secondary to pneumonia - pt cultured MSSA however started to decline when vanco was d/c'd -mosquera culture reviewed -Vanco and Zosyn -Diflucan Hypernatremia - probably secondary to dehydration - D5W -Will monitor close Pt failed swallow evaluation Acute respiratory failure with mucous plugging and pneumonia s/p bronchoscopy Dysphagia -NG tube reinserted and pt having a lot of residual TF. 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
[2018-01-12] MEDS: ENOXAPARIN 40 MG/0.4 ML (LOVENOX) SYR SC SCH (09:22)
[2018-01-12] MEDS: FAMOTIDINE 20 MG (PEPCID) TABLET NG SCH (09:22)
[2018-01-12] MEDS: CEFDINIR 125 MG/5 ML (OMNICEF) 60 ML NG SCH ×2 (09:22→20:52)
[2018-01-12] MEDS: fluCOnazole (DIFLUCAN) 10MG/ML 35ML BTL NG SCH (09:25)
--- NOTE | 2018-01-12 11:16 | Speech Therapy Progress Note ---
Therapy Progress Note Speech pathology re-attempted swallowing evaluation. At this time, the patient has padded mitts in place. The patient does demonstrate increased awareness on this date, however, also displays increased refusal. The patient stated his first name and spelled his last name for the clinician. The clinician attempted to complete oral, moist swabs for oral care and to assess his ability to manipulate the item. The patient spit at the clinician and swatted repeatedly at the clinician's face. In attempts to continue the evaluation, a moist spoon was brought to the patient's lips. The patient again swatted at the clinician and yelled, "I said leave me alone!" At this time, the swallow evaluation was terminated. Speech pathology to sign off on this patient. If the patient becomes appropriate (inappropriate at this time) for complete evaluation with improved participation and reduced agitation and aggression, please reconsult speech pathology. This information was shared and discussed with the patient's RN. THAO TREVIZO January 12, 2018 11:16
[2018-01-13] MEDS: RT-ALBUTEROL/IPRATROPIUM 3 ML (DUONEB) VIAL INH SCH ×6 (03:07→22:19)
[2018-01-13] MEDS: aCETylcysteine 20% (MUCOMYST) 30ML SOLN VIAL INH SCH ×6 (03:08→22:19)
[2018-01-13 03:38] VITALS: BP 140/65
[2018-01-13 06:29] LABS: HEMOGLOBIN 12.3 G/DL (13.3-17.7); MEAN PLATELET VOLUME 9.8 FL (7.4-10.4); RED BLOOD COUNT 4.12 10^6/uL (4.35-5.85); RED CELL DISTRIBUTION WIDTH 13.3 % (10.0-14.5); WHITE BLOOD COUNT 8.7 10^3/uL (4.3-11.0)
--- NOTE | 2018-01-13 07:41 | Progress Note (SOAP) ---
Subjective Time Seen by Provider: 07:40 Subjective/Events-last exam Patient awake this morning. Patient with his Alzheimer's has agitation. Patient to be put back on Depakote. Waiting for judged to make a decision of nasogastric tube or hospice. Right to see if patient could swallow without success. Waiting for palliative care to give me directions Objective Exam Vital Signs Date Time Temp Pulse Resp B/P (MAP) Pulse Ox O2 Delivery O2 Flow Rate FiO2 01/13/18 06:49 95 Room Air 01/13/18 03:38 97.0 57 16 140/65 (90) 94 Room Air 01/13/18 03:08 94 Room Air 01/12/18 23:46 97.1 58 16 146/67 (93) 94 Room Air 01/12/18 22:40 93 Room Air 01/12/18 20:52 Room Air 01/12/18 20:00 96.5 59 16 134/74 (94) 94 01/12/18 18:50 94 Room Air 01/12/18 16:01 94 Room Air 01/12/18 16:00 57 14 140/60 (86) 95 01/12/18 12:00 98.9 68 18 129/78 (95) 93 Room Air 01/12/18 11:43 92 Room Air 01/12/18 08:57 Room Air 01/12/18 08:00 99.0 59 18 123/69 (87) 95 Room Air I & O 01/13/18 07:00 Intake Total 1636 ml Output Total 1650 ml Balance -14 ml Capillary Refill : Less Than 3 Seconds General Appearance: No Apparent Distress, WD/WN HEENT: Normal ENT Inspection Respiratory: No Accessory Muscle Use, No Respiratory Distress Cardiovascular: Regular Rate, Rhythm, No Murmur Results Lab Laboratory Tests 01/13/18 05:37 Laboratory Tests 01/13/18 05:37: White Blood Count 8.7, Red Blood Count 4.12L, Hemoglobin 12.3L, Hematocrit 37L, Mean Corpuscular Volume 89, Mean Corpuscular Hemoglobin 30, Mean Corpuscular Hemoglobin Concent 33, Red Cell Distribution Width 13.3, Platelet Count 223, Mean Platelet Volume 9.8 Microbiology 01/02/18 Blood Culture - Final, Complete No growth 01/02/18 MRSA Screen - Final, Complete MRSA not isolated 01/02/18 Urine Culture - Final, Complete NO GROWTH Assessment/Plan Assessment/Plan Assess & Plan/Chief Complaint Sepsis. Pneumonia. Hypernatremia. Acute respiratory failure with mucous plugging and pneumonia 01/05/18 Patient stable. . 01/06/18. Sepsis. Pneumonia. Acute respiratory. Hypertension. Bradycardia. Dementia. Patient off ventilator . . Sepsis. Pneumonia. Acute respiratory failure. Hypertension. Bradycardia. Dementia. Patient looks better but chest x-ray yesterday looked worse . . 01/10/18.. Sepsis. Pneumonia. Acute respiratory failure. Hypertension. Bradycardia. Dementia. To have another swallow study by speech therapy. Chest x-ray yesterday looked worse. . 01/11/18. Sepsis. Pneumonia. Acute respiratory failure area Hypertension. Severe dementia. Patient will need. Patient candidate for hospice. web services developer to get involved. . 01/12/18. Sepsis resolved. Acute respiratory failure resolved. Severe dementia. Waiting for gesture sign orders for hospice. . 01/13/18. Sepsis resolved. Acute respiratory failure resolved. Alzheimer's disease with aggression. Unsuccessful attempts for patient to swallow. Waiting for judges decision for hospice versus nasogastric tube to send back to group home Clinical Quality Measures Admission Status Admission Dx Severe sepsis secondary to pneumonia. Mucous plugs. Septic shock. Hypernatremia. Acute respiratory failure with mucous plug. Dementia Obtunded DVT/VTE Risk/Contraindication: Risk Factor Score Per Nursin RFS Level Per Nursing on Admit: 4+=Very High FELICIA HUYNH DO January 13, 2018 07:41
--- NOTE | 2018-01-13 08:21 | Diagnostic Imaging Report ---
INDICATION: Lower respiratory infection Portable chest 6:26 AM There continues to be some infiltrate at the right lung base. This is improved from 01/11/2018. There is no effusion. Left lung is clear. NG tube enters the stomach. IMPRESSION: Improving right basilar infiltrate Dictated by: Dictated on workstation # [id number]
[2018-01-13] MEDS: FAMOTIDINE 20 MG (PEPCID) TABLET NG SCH (08:46)
[2018-01-13] MEDS: ENOXAPARIN 40 MG/0.4 ML (LOVENOX) SYR SC SCH (08:46)
[2018-01-13] MEDS: fluCOnazole (DIFLUCAN) 10MG/ML 35ML BTL NG SCH (08:47)
[2018-01-13] MEDS: CEFDINIR 125 MG/5 ML (OMNICEF) 60 ML NG SCH ×2 (08:47→20:25)
[2018-01-13] MEDS ORDERED: DIVALPROEX 250 MG DELAYED RELEASE (DEPAKOTE) TAB PO SCH ×3 (09:00→21:00)
[2018-01-13 10:02] VITALS: BP_SYST 165; BP_SYST 195; BP_DIAS 60; BP_DIAS 80
[2018-01-13 12:00] VITALS: BP 135/64
[2018-01-13 15:52] VITALS: BP 138/74
[2018-01-13] MEDS ORDERED: DIVALPROX SPRINKLE 125 MG (DEPAKOTE) CAP NG SCH (21:00)
[2018-01-13 22:45] VITALS: BP 154/72
[2018-01-14 00:09] VITALS: BP 146/70
[2018-01-14] MEDS: RT-ALBUTEROL/IPRATROPIUM 3 ML (DUONEB) VIAL INH SCH ×3 (02:06→10:39)
[2018-01-14] MEDS: aCETylcysteine 20% (MUCOMYST) 30ML SOLN VIAL INH SCH ×3 (02:06→10:39)
[2018-01-14 04:21] VITALS: BP 133/64
--- NOTE | 2018-01-14 07:59 | Progress Note (SOAP) ---
Subjective Time Seen by Provider: 07:55 Subjective/Events-last exam Patient to be transferred back to [facility] and [facility]. Patient to be on hospice. Patient not to have a PEG tube Objective Exam Vital Signs Date Time Temp Pulse Resp B/P (MAP) Pulse Ox O2 Delivery O2 Flow Rate FiO2 01/14/18 06:51 94 Room Air 01/14/18 04:21 97.6 63 19 133/64 (87) 94 Room Air 01/14/18 02:07 95 Room Air 01/14/18 00:09 97.8 67 19 146/70 (95) 94 Room Air 01/13/18 22:45 97.3 63 18 154/72 (99) 98 Room Air 01/13/18 22:20 95 Room Air 01/13/18 20:25 Room Air 01/13/18 18:07 95 Room Air 01/13/18 15:52 97.6 62 18 138/74 (95) 98 Room Air 01/13/18 14:11 95 Room Air 01/13/18 12:00 97.1 59 16 135/64 (87) 95 Room Air 01/13/18 10:56 95 Room Air 01/13/18 10:02 98.2 63 16 165/60 (95) 94 Room Air 01/13/18 09:00 Room Air I & O 01/14/18 07:00 Intake Total 1612 ml Output Total 1615 ml Balance -3 ml Capillary Refill : Less Than 3 Seconds General Appearance: No Apparent Distress, Other (Patient awake this morning) Results Lab Microbiology 01/02/18 Blood Culture - Final, Complete No growth 01/02/18 MRSA Screen - Final, Complete MRSA not isolated 01/02/18 Urine Culture - Final, Complete NO GROWTH Assessment/Plan Assessment/Plan Assess & Plan/Chief Complaint Sepsis. Pneumonia. Hypernatremia. Acute respiratory failure with mucous plugging and pneumonia 01/05/18 Patient stable. . 01/06/18. Sepsis. Pneumonia. Acute respiratory. Hypertension. Bradycardia. Dementia. Patient off ventilator . . . Sepsis. Pneumonia. Acute respiratory failure. Hypertension. Bradycardia. Dementia. Patient looks better but chest x-ray yesterday looked worse . . 01/10/18.. Sepsis. Pneumonia. Acute respiratory failure. Hypertension. Bradycardia. Dementia. To have another swallow study by speech therapy. Chest x-ray yesterday looked worse. . 01/11/18. Sepsis. Pneumonia. Acute respiratory failure area Hypertension. Severe dementia. Patient will need. Patient candidate for hospice. creative services writer to get involved. . 01/12/18. Sepsis resolved. Acute respiratory failure resolved. Severe dementia. Waiting for gesture sign orders for hospice. . 01/13/18. Sepsis resolved. Acute respiratory failure resolved. Alzheimer's disease with aggression. Unsuccessful attempts for patient to swallow. Waiting for judges decision for hospice versus nasogastric tube to send back to assisted. . 01/14/18. Alzheimer's disease. Transferred back to assisted. Patient on hospice. Clinical Quality Measures Admission Status Admission Dx Severe sepsis secondary to pneumonia. Mucous plugs. Septic shock. Hypernatremia. Acute respiratory failure with mucous plug. Dementia Obtunded DVT/VTE Risk/Contraindication: Risk Factor Score Per Nursin RFS Level Per Nursing on Admit: 4+=Very High FELICIA HUYNH DO January 14, 2018 07:59
[2018-01-14 08:00] VITALS: BP 154/74
--- NOTE | 2018-01-14 08:01 | Discharge Inst-Skilled Nursing ---
Discharge Inst-Skilled NF Patient Instructions Patient Problems: Patient hospice. No PEG tube. Consult/Follow Up/Orders Skilled NF Admit to: [facility] Certification (SNF) I certify that SNF services are required to be given on an inpatient basis because of the above named patient's need for residential care on a continuing basis for the conditions(s) for which he/she was receiving inpatient hospital services prior to his/her transfer to the SNF. Daily Activity as Tolerated: Yes New & Resume Previous Orders Ace Huynh January 14, 2018 08:01 ACE HUYNH DO January 14, 2018 08:01
[2018-01-14] MEDS ORDERED: DIVALPROX SPRINKLE 125 MG (DEPAKOTE) CAP NG SCH ×2 (09:00→13:00)
[2018-01-14] MEDS: SCOPOLAMINE 1.5 MG (TRANSDERM-SCOP) PATCH TOP SCH (10:21)
[2018-01-14] MEDS: ENOXAPARIN 40 MG/0.4 ML (LOVENOX) SYR SC SCH (10:21)
[2018-01-14] MEDS: PATCH REMOVAL TP SCH (10:24)
[2018-01-14] MEDS: fluCOnazole (DIFLUCAN) 10MG/ML 35ML BTL NG SCH (10:24)
[2018-01-14] MEDS: CEFDINIR 125 MG/5 ML (OMNICEF) 60 ML NG SCH (10:24)
[2018-01-14] MEDS: FAMOTIDINE 20 MG (PEPCID) TABLET NG SCH (10:24)
[2018-01-14 12:00] VITALS: BP 138/64
--- NOTE | 2018-01-17 07:24 | Discharge Summary ---
Diagnosis/Chief Complaint Date of Admission Jan 02, 2018 at 14:39 Date of Discharge January 14, 2018 at 14:30 Discharge Date: January 14, 2018 Discharge Time: 07:20 Discharge Diagnosis Sepsis. Pneumonia. Septic shock. Hypernatremia. Obtunded. Severe dementia. Acute respiratory failure with mucous plugging. Obtunded Reason Hospital Visit Patient resident of assisted. Patient's pulse ox went down to 70. Patient has dementia. Patient on ventilator now. Patient short of breath and acute mental status changes. Patient obtunded in the emergency room. Discharge Summary Consultations Pulmonology. Patient on ventilator Discharge Physical Examination Allergies: Coded Allergies: Penicillins (Unverified Allergy, Unknown, 01/04/18) Vitals & I&Os Vital Signs Date Time Temp Pulse Resp B/P (MAP) Pulse Ox O2 Delivery O2 Flow Rate FiO2 01/14/18 12:00 98.1 72 18 138/64 (88) 93 Room Air Hospital Course Patient in hospital fail to speech swallow studies. [facility] with judges disorders [facility] Laboratory Tests 01/02/18 12:17: Blood Gas Puncture Site LEFT RADIAL, Blood Gas Patient Temperature 99.5, Arterial Blood pH 7.25*L, Arterial Blood Partial Pressure CO2 59H, Arterial Blood Partial Pressure O2 246H, Arterial Blood HCO3 25, Arterial Blood Total CO2 26.8, Arterial Blood Oxygen Saturation 100, Arterial Blood Base Excess -1.2 , Ralph Test POSITIVE, Blood Gas Ventilator Setting YES, Blood Gas Inspired Oxygen 100% 01/02/18 12:21: White Blood Count 14.2H, Red Blood Count 4.35, Hemoglobin 12.9L, Hematocrit 42, Mean Corpuscular Volume 97, Mean Corpuscular Hemoglobin 30, Mean Corpuscular Hemoglobin Concent 31L, Red Cell Distribution Width 13.8, Platelet Count 119L, Mean Platelet Volume 10.7H, Neutrophils (%) (Auto) 83H, Lymphocytes (%) (Auto) 7L, Monocytes (%) (Auto) 10, Eosinophils (%) (Auto) 0, Basophils (%) (Auto) 0, Neutrophils # (Auto) 11.7H, Lymphocytes # (Auto) 1.0, Monocytes # (Auto) 1.4H, Eosinophils # (Auto) 0.0, Basophils # (Auto) 0.0, Neutrophils % (Manual) 90, Lymphocytes % (Manual) 7, Monocytes % (Manual) 3, Prothrombin Time 17.5H, INR Comment 1.4, Activated Partial Thromboplast Time 27, Sodium Level 164*H, Potassium Level 3.8, Chloride Level 133H, Carbon Dioxide Level 26, Anion Gap 5, Blood Urea Nitrogen 48H, Creatinine 1.18, Estimat Glomerular Filtration Rate > 60, BUN/Creatinine Ratio 41, Glucose Level 99, Calcium Level 7.7L, Total Bilirubin 0.5, Aspartate Amino Transf (AST/SGOT) 25, Alanine Aminotransferase ( ALT/SGPT) 45, Alkaline Phosphatase 37L, C-Reactive Protein High Sensitivity 5.18H, B-Type Natriuretic Peptide 49.5, Total Protein 4.6L, Albumin 2.6L 01/02/18 12:37: Lactic Acid Level 0.88 01/02/18 13:06: Sodium Level 164*H, Potassium Level 3.9, Chloride Level 132H, Carbon Dioxide Level 25, Anion Gap 7, Blood Urea Nitrogen 47H, Creatinine 1.19, Estimat Glomerular Filtration Rate > 60, BUN/Creatinine Ratio 39, Glucose Level 98, Calcium Level 7.7L 01/02/18 18:24: Blood Gas Puncture Site RT RAD, Blood Gas Patient Temperature 98.4, Arterial Blood pH 7.30*L, Arterial Blood Partial Pressure CO2 42, Arterial Blood Partial Pressure O2 140H, Arterial Blood HCO3 20L, Arterial Blood Total CO2 21.5, Arterial Blood Oxygen Saturation 99, Arterial Blood Base Excess -5.1L, Ralph Test YES-POS, Blood Gas Ventilator Setting YES, Blood Gas Inspired Oxygen 65% 01/02/18 20:10: Sodium Level 163*H, Potassium Level 3.9, Chloride Level 131H, Carbon Dioxide Level 21, Anion Gap 11, Blood Urea Nitrogen 54H, Creatinine 1.46H, Estimat Glomerular Filtration Rate 48, BUN/Creatinine Ratio 37, Glucose Level 125H, Calcium Level 7.9L, Phosphorus Level 4.9H, Magnesium Level 2.3 01/02/18 20:15: Urine Color AMBERH, Urine Clarity SLIGHTLY CLOUDY, Urine pH 5, Urine Specific [place] 1.025H, Urine Protein 2+H, Urine Glucose (UA) NEGATIVE, Urine Ketones 1+ H, Urine Nitrite NEGATIVE, Urine Bilirubin NEGATIVE, Urine Urobilinogen 1, Urine Leukocyte Esterase 3+H, Urine RBC (Auto) 4+H, Urine RBC 10-25H, Urine WBC 25-50H, Urine Squamous Epithelial Cells 0-2, Urine Crystals NONE, Urine Bacteria FEWH, Urine Casts NONE, Urine Mucus NEGATIVE, Urine Culture Indicated YES 01/02/18 23:55: Sodium Level 163*H, Potassium Level 3.6, Chloride Level 131H, Carbon Dioxide Level 22, Anion Gap 10, Blood Urea Nitrogen 52H, Creatinine 1.40H, Estimat Glomerular Filtration Rate 51, BUN/Creatinine Ratio 37, Glucose Level 129H, Calcium Level 7.7L, Lactic Acid Level 1.43, Ionized Calcium (Measured) 1.12L, Ionized Calcium pH 7.30, Ionized Calcium (Corrected) 1.06L, Albumin 3.1L 01/03/18 03:30: White Blood Count 26.9H, Red Blood Count 4.35, Hemoglobin 13.1L, Hematocrit 42, Mean Corpuscular Volume 97, Mean Corpuscular Hemoglobin 30, Mean Corpuscular Hemoglobin Concent 31L, Red Cell Distribution Width 13.9, Platelet Count 105L, Mean Platelet Volume 10.7H, Neutrophils (%) (Auto) 90H, Lymphocytes (%) (Auto) 3L, Monocytes (%) (Auto) 7, Eosinophils (%) (Auto) 0, Basophils (%) (Auto) 0, Neutrophils # (Auto) 24.2H, Lymphocytes # (Auto) 0.8L, Monocytes # (Auto) 1.8H, Eosinophils # (Auto) 0.0, Basophils # (Auto) 0.0, Sodium Level 162*H, Potassium Level 3.6, Chloride Level 131H, Carbon Dioxide Level 22, Anion Gap 9, Blood Urea Nitrogen 51H, Creatinine 1.38H, Estimat Glomerular Filtration Rate 52, BUN/ Creatinine Ratio 37, Glucose Level 140H, Calcium Level 7.8L, Phosphorus Level 3.7, Magnesium Level 2.4 01/03/18 03:33: Blood Gas Puncture Site RIGHT RADIAL, Blood Gas Patient Temperature 98.8, Arterial Blood pH 7.33*L, Arterial Blood Partial Pressure CO2 40, Arterial Blood Partial Pressure O2 150H, Arterial Blood HCO3 21L, Arterial Blood Total CO2 21.9, Arterial Blood Oxygen Saturation 99, Arterial Blood Base Excess -4.2L , Ralph Test YES-POS, Blood Gas Ventilator Setting YES, Blood Gas Inspired Oxygen 40% 01/03/18 05:30: Gastric Fluid Occult Blood NEGATIVE 01/03/18 10:44: Sodium Level 161*H, Potassium Level 3.5L, Chloride Level 132H, Carbon Dioxide Level 24, Anion Gap 5, Blood Urea Nitrogen 46H, Creatinine 1.11, Estimat Glomerular Filtration Rate > 60, BUN/Creatinine Ratio 41, Glucose Level 144H, Calcium Level 7.8L, Total Bilirubin 0.4, Aspartate Amino Transf (AST/SGOT) 14, Alanine Aminotransferase (ALT/SGPT) 34, Alkaline Phosphatase 36L, Total Protein 5.0L, Albumin 2.9L 01/03/18 15:17: Glucometer 133H 01/03/18 18:43: Vancomycin Level Trough 14.3 01/04/18 00:58: Glucometer 113H 01/04/18 03:10: White Blood Count 14.3H, Red Blood Count 4.34L, Hemoglobin 13.0L, Hematocrit 41 , Mean Corpuscular Volume 95, Mean Corpuscular Hemoglobin 30, Mean Corpuscular Hemoglobin Concent 32, Red Cell Distribution Width 13.9, Platelet Count 99L, Mean Platelet Volume 10.9H, Neutrophils (%) (Auto) 86H, Lymphocytes (%) (Auto) 7L, Monocytes (%) (Auto) 6, Eosinophils (%) (Auto) 1, Basophils (%) (Auto) 0, Neutrophils # (Auto) 12.3H, Lymphocytes # (Auto) 1.0, Monocytes # (Auto) 0.9, Eosinophils # (Auto) 0.2, Basophils # (Auto) 0.0, Sodium Level 159H, Potassium Level 3.6, Chloride Level 132H, Carbon Dioxide Level 21, Anion Gap 6, Blood Urea Nitrogen 38H, Creatinine 0.88, Estimat Glomerular Filtration Rate > 60, BUN /Creatinine Ratio 43, Glucose Level 151H, Calcium Level 8.4L, Phosphorus Level 1.7L, Magnesium Level 2.4, Thyroid Stimulating Hormone (TSH) 0.36 01/04/18 03:18: Blood Gas Puncture Site RIGHT RADIAL, Blood Gas Patient Temperature 97.4, Arterial Blood pH 7.38, Arterial Blood Partial Pressure CO2 34L, Arterial Blood Partial Pressure O2 86, Arterial Blood HCO3 20L, Arterial Blood Total CO2 21.3, Arterial Blood Oxygen Saturation 99, Arterial Blood Base Excess -4.1L, Ralph Test YES-POS, Blood Gas Ventilator Setting YES, Blood Gas Inspired Oxygen 21% 01/04/18 07:55: Vancomycin Level Trough 16.9 01/04/18 09:52: Triglycerides Level 65 01/04/18 17:38: Glucometer 125H 01/05/18 00:57: Glucometer 123H 01/05/18 03:00: White Blood Count 12.5H, Red Blood Count 4.20L, Hemoglobin 12.7L, Hematocrit 39L , Mean Corpuscular Volume 92, Mean Corpuscular Hemoglobin 30, Mean Corpuscular Hemoglobin Concent 33, Red Cell Distribution Width 13.6, Platelet Count 118L, Mean Platelet Volume 11.2H, Neutrophils (%) (Auto) 85H, Lymphocytes (%) (Auto) 8L, Monocytes (%) (Auto) 5, Eosinophils (%) (Auto) 2, Basophils (%) (Auto) 0, Neutrophils # (Auto) 10.7H, Lymphocytes # (Auto) 1.0, Monocytes # (Auto) 0.6, Eosinophils # (Auto) 0.2, Basophils # (Auto) 0.0, Sodium Level 152H, Potassium Level 3.9, Chloride Level 125H, Carbon Dioxide Level 22, Anion Gap 5, Blood Urea Nitrogen 26H, Creatinine 0.79, Estimat Glomerular Filtration Rate > 60, BUN /Creatinine Ratio 33, Glucose Level 144H, Calcium Level 7.8L, Phosphorus Level 2.2L, Magnesium Level 2.2 01/05/18 03:06: Blood Gas Puncture Site RIGHT RADIAL, Blood Gas Patient Temperature 98.2, Arterial Blood pH 7.43, Arterial Blood Partial Pressure CO2 31L, Arterial Blood Partial Pressure O2 75L, Arterial Blood HCO3 20L, Arterial Blood Total CO2 21.0 , Arterial Blood Oxygen Saturation 95, Arterial Blood Base Excess -3.6L, Ralph Test YES-POS, Blood Gas Ventilator Setting YES, Blood Gas Inspired Oxygen 21% 01/05/18 06:50: Blood Gas Puncture Site RIGHT RADIAL, Blood Gas Patient Temperature 99.5, Arterial Blood pH 7.49H, Arterial Blood Partial Pressure CO2 26L, Arterial Blood Partial Pressure O2 85, Arterial Blood HCO3 19L, Arterial Blood Total CO2 19.9L, Arterial Blood Oxygen Saturation 98, Arterial Blood Base Excess -3.6L, Ralph Test YES-POS, Blood Gas Ventilator Setting YES, Blood Gas Inspired Oxygen 21% 01/05/18 12:17: Glucometer 97 01/06/18 03:50: White Blood Count 14.1H, Red Blood Count 4.45, Hemoglobin 13.3, Hematocrit 40, Mean Corpuscular Volume 91, Mean Corpuscular Hemoglobin 30, Mean Corpuscular Hemoglobin Concent 33, Red Cell Distribution Width 13.7, Platelet Count 169, Mean Platelet Volume 10.2, Neutrophils (%) (Auto) 84H, Lymphocytes (%) (Auto) 9L , Monocytes (%) (Auto) 5, Eosinophils (%) (Auto) 2, Basophils (%) (Auto) 0, Neutrophils # (Auto) 11.8H, Lymphocytes # (Auto) 1.3, Monocytes # (Auto) 0.7, Eosinophils # (Auto) 0.3, Basophils # (Auto) 0.0, Sodium Level 143, Potassium Level 3.3L, Chloride Level 113H, Carbon Dioxide Level 23, Anion Gap 7, Blood Urea Nitrogen 19H, Creatinine 0.72, Estimat Glomerular Filtration Rate > 60, BUN /Creatinine Ratio 26, Glucose Level 104, Calcium Level 8.2L, Phosphorus Level 2.7, Magnesium Level 2.0 01/06/18 14:36: Blood Gas Puncture Site L RAD, Blood Gas Patient Temperature 100.0, Arterial Blood pH 7.47H, Arterial Blood Partial Pressure CO2 29L, Arterial Blood Partial Pressure O2 80, Arterial Blood HCO3 21L, Arterial Blood Total CO2 21.7, Arterial Blood Oxygen Saturation 94, Arterial Blood Base Excess -2.2, Ralph Test YES-POS, Blood Gas Ventilator Setting NO, Blood Gas Inspired Oxygen 31 01/07/18 03:14: White Blood Count 14.8H, Red Blood Count 4.40, Hemoglobin 13.2L, Hematocrit 39L , Mean Corpuscular Volume 88, Mean Corpuscular Hemoglobin 30, Mean Corpuscular Hemoglobin Concent 34, Red Cell Distribution Width 13.1, Platelet Count 165, Mean Platelet Volume 10.0, Sodium Level 142, Potassium Level 3.5L, Chloride Level 111H, Carbon Dioxide Level 22, Anion Gap 9, Blood Urea Nitrogen 16, Creatinine 0.76, Estimat Glomerular Filtration Rate > 60, BUN/Creatinine Ratio 21, Glucose Level 92, Calcium Level 8.2L, Phosphorus Level 2.8, Magnesium Level 1.9 01/08/18 03:10: White Blood Count 15.5H, Red Blood Count 4.34L, Hemoglobin 12.9L, Hematocrit 38L , Mean Corpuscular Volume 88, Mean Corpuscular Hemoglobin 30, Mean Corpuscular Hemoglobin Concent 34, Red Cell Distribution Width 13.2, Platelet Count 171, Mean Platelet Volume 10.0, Neutrophils (%) (Auto) 85H, Lymphocytes (%) (Auto) 7L , Monocytes (%) (Auto) 7, Eosinophils (%) (Auto) 1, Basophils (%) (Auto) 0, Neutrophils # (Auto) 13.2H, Lymphocytes # (Auto) 1.1, Monocytes # (Auto) 1.1H, Eosinophils # (Auto) 0.2, Basophils # (Auto) 0.0, Neutrophils % (Manual) 84, Lymphocytes % (Manual) 7, Monocytes % (Manual) 7, Eosinophils % (Manual) 1, Basophils % (Manual) 0, Band Neutrophils 0, Reactive Lymphocytes 1, Blood Morphology Comment NORMAL, Sodium Level 143, Potassium Level 3.0L, Chloride Level 110H, Carbon Dioxide Level 24, Anion Gap 9, Blood Urea Nitrogen 22H, Creatinine 0.90, Estimat Glomerular Filtration Rate > 60, BUN/Creatinine Ratio 24, Glucose Level 127H, Calcium Level 8.4L, Phosphorus Level 2.7, Magnesium Level 2.1 01/09/18 03:13: White Blood Count 11.5H, Red Blood Count 3.99L, Hemoglobin 12.1L, Hematocrit 35L , Mean Corpuscular Volume 89, Mean Corpuscular Hemoglobin 30, Mean Corpuscular Hemoglobin Concent 34, Red Cell Distribution Width 12.9, Platelet Count 179, Mean Platelet Volume 9.8, Neutrophils (%) (Auto) 75, Lymphocytes (%) (Auto) 11L , Monocytes (%) (Auto) 9, Eosinophils (%) (Auto) 5, Basophils (%) (Auto) 0, Neutrophils # (Auto) 8.6H, Lymphocytes # (Auto) 1.2, Monocytes # (Auto) 1.0, Eosinophils # (Auto) 0.6H, Basophils # (Auto) 0.0, Sodium Level 141, Potassium Level 3.4L, Chloride Level 110H, Carbon Dioxide Level 23, Anion Gap 8, Blood Urea Nitrogen 19H, Creatinine 0.80, Estimat Glomerular Filtration Rate > 60, BUN /Creatinine Ratio 24, Glucose Level 105, Calcium Level 8.2L, Phosphorus Level 2.7, Magnesium Level 2.1 01/09/18 07:55: Vancomycin Level Trough 25.5*H 01/09/18 21:50: Vancomycin Level Trough 14.6 01/10/18 03:45: White Blood Count 8.7, Red Blood Count 4.01L, Hemoglobin 11.9L, Hematocrit 35L, Mean Corpuscular Volume 88, Mean Corpuscular Hemoglobin 30, Mean Corpuscular Hemoglobin Concent 34, Red Cell Distribution Width 12.8, Platelet Count 210, Mean Platelet Volume 9.6, Neutrophils (%) (Auto) 72, Lymphocytes (%) (Auto) 15, Monocytes (%) (Auto) 8, Eosinophils (%) (Auto) 5, Basophils (%) (Auto) 0, Neutrophils # (Auto) 6.2, Lymphocytes # (Auto) 1.3, Monocytes # (Auto) 0.7, Eosinophils # (Auto) 0.4H, Basophils # (Auto) 0.0, Sodium Level 139, Potassium Level 3.5L, Chloride Level 108H, Carbon Dioxide Level 22, Anion Gap 9, Blood Urea Nitrogen 14, Creatinine 0.75, Estimat Glomerular Filtration Rate > 60, BUN/ Creatinine Ratio 19, Glucose Level 97, Calcium Level 8.4L, Phosphorus Level 2.6 , Magnesium Level 2.1 01/11/18 15:00: Vancomycin Level Trough 16.5 01/13/18 05:37: White Blood Count 8.7, Red Blood Count 4.12L, Hemoglobin 12.3L, Hematocrit 37L, Mean Corpuscular Volume 89, Mean Corpuscular Hemoglobin 30, Mean Corpuscular Hemoglobin Concent 33, Red Cell Distribution Width 13.3, Platelet Count 223, Mean Platelet Volume 9.8 Microbiology 01/02/18 Blood Culture - Final, Complete No growth 01/02/18 MRSA Screen - Final, Complete MRSA not isolated 01/02/18 Urine Culture - Final, Complete NO GROWTH Laboratory Tests 01/02/18 12:21 01/02/18 13:06 01/02/18 20:10 01/02/18 23:55 01/03/18 03:30 01/03/18 10:44 01/04/18 03:10 01/05/18 03:00 01/06/18 03:50 01/07/18 03:14 01/08/18 03:10 01/09/18 03:13 01/10/18 03:45 01/13/18 05:37 Pending Labs Microbiology Date/Time Source Procedure Growth Status 01/02/18 13:35 Peripheral Rt Ac Blood Culture - Final No growth Complete 01/02/18 12:37 Peripheral Left Wrist Blood Culture - Final Staph, Coag Neg (ACID BLOWER) See Comments Complete 01/02/18 17:24 Nasal MRSA Screen - Final MRSA not isolated Complete 01/02/18 14:40 Bronch Washings Bilateral Mycobacterial Culture - Preliminary Resulted 01/02/18 14:40 Bronch Washings Bilateral Gram Stain - Final Resulted 01/02/18 14:40 Bronchial Culture - Final Staphylococcus aureus Normal hira Yeast species Resulted 01/02/18 14:40 Fungal Culture - Preliminary Antionette glabrata Resulted 01/02/18 11:40 Sputum Expectorated Gram Stain - Final Complete 01/02/18 11:40 Sputum Culture - Final Normal hira Staphylococcus aureus Yeast species Complete 01/02/18 20:15 Urine Clean Catch Urine Culture - Final NO GROWTH Complete Laboratory Tests 01/02/18 12:17: Blood Gas Puncture Site LEFT RADIAL, Blood Gas Patient Temperature 99.5, Arterial Blood pH 7.25, Arterial Blood Partial Pressure CO2 59, Arterial Blood Partial Pressure O2 246, Arterial Blood HCO3 25, Arterial Blood Total CO2 26.8, Arterial Blood Oxygen Saturation 100, Arterial Blood Base Excess -1.2, Ralph Test POSITIVE, Blood Gas Ventilator Setting YES, Blood Gas Inspired Oxygen 100% 01/02/18 12:21: White Blood Count 14.2, Red Blood Count 4.35, Hemoglobin 12.9, Hematocrit 42, Mean Corpuscular Volume 97, Mean Corpuscular Hemoglobin 30, Mean Corpuscular Hemoglobin Concent 31, Red Cell Distribution Width 13.8, Platelet Count 119, Mean Platelet Volume 10.7, Neutrophils (%) (Auto) 83, Lymphocytes (%) (Auto) 7, Monocytes (%) (Auto) 10, Eosinophils (%) (Auto) 0, Basophils (%) (Auto) 0, Neutrophils # (Auto) 11.7, Lymphocytes # (Auto) 1.0, Monocytes # (Auto) 1.4, Eosinophils # (Auto) 0.0, Basophils # (Auto) 0.0, Neutrophils % (Manual) 90, Lymphocytes % (Manual) 7, Monocytes % (Manual) 3, Prothrombin Time 17.5, INR Comment 1.4, Activated Partial Thromboplast Time 27, Sodium Level 164, Potassium Level 3.8, Chloride Level 133, Carbon Dioxide Level 26, Anion Gap 5, Blood Urea Nitrogen 48, Creatinine 1.18, Estimat Glomerular Filtration Rate > 60 , BUN/Creatinine Ratio 41, Glucose Level 99, Calcium Level 7.7, Total Bilirubin 0.5, Aspartate Amino Transf (AST/SGOT) 25, Alanine Aminotransferase (ALT/SGPT) 45, Alkaline Phosphatase 37, C-Reactive Protein High Sensitivity 5.18, B-Type Natriuretic Peptide 49.5, Total Protein 4.6, Albumin 2.6 01/02/18 12:37: Lactic Acid Level 0.88 01/02/18 13:06: Sodium Level 164, Potassium Level 3.9, Chloride Level 132, Carbon Dioxide Level 25, Anion Gap 7, Blood Urea Nitrogen 47, Creatinine 1.19, Estimat Glomerular Filtration Rate > 60, BUN/Creatinine Ratio 39, Glucose Level 98, Calcium Level 7.7 01/02/18 18:24: Blood Gas Puncture Site RT RAD, Blood Gas Patient Temperature 98.4, Arterial Blood pH 7.30, Arterial Blood Partial Pressure CO2 42, Arterial Blood Partial Pressure O2 140, Arterial Blood HCO3 20, Arterial Blood Total CO2 21.5, Arterial Blood Oxygen Saturation 99, Arterial Blood Base Excess -5.1, Ralph Test YES-POS, Blood Gas Ventilator Setting YES, Blood Gas Inspired Oxygen 65% 01/02/18 20:10: Sodium Level 163, Potassium Level 3.9, Chloride Level 131, Carbon Dioxide Level 21, Anion Gap 11, Blood Urea Nitrogen 54, Creatinine 1.46, Estimat Glomerular Filtration Rate 48, BUN/Creatinine Ratio 37, Glucose Level 125, Calcium Level 7.9, Phosphorus Level 4.9, Magnesium Level 2.3 01/02/18 20:15: Urine Color SOLOMON, Urine Clarity SLIGHTLY CLOUDY, Urine pH 5, Urine Specific [place] 1.025, Urine Protein 2+, Urine Glucose (UA) NEGATIVE, Urine Ketones 1+, Urine Nitrite NEGATIVE, Urine Bilirubin NEGATIVE, Urine Urobilinogen 1, Urine Leukocyte Esterase 3+, Urine RBC (Auto) 4+, Urine RBC 10-25, Urine WBC 25-50, Urine Squamous Epithelial Cells 0-2, Urine Crystals NONE, Urine Bacteria FEW, Urine Casts NONE, Urine Mucus NEGATIVE, Urine Culture Indicated YES 01/02/18 23:55: Sodium Level 163, Potassium Level 3.6, Chloride Level 131, Carbon Dioxide Level 22, Anion Gap 10, Blood Urea Nitrogen 52, Creatinine 1.40, Estimat Glomerular Filtration Rate 51, BUN/Creatinine Ratio 37, Glucose Level 129, Calcium Level 7.7, Lactic Acid Level 1.43, Ionized Calcium (Measured) 1.12, Ionized Calcium pH 7.30, Ionized Calcium (Corrected) 1.06, Albumin 3.1 01/03/18 03:30: White Blood Count 26.9, Red Blood Count 4.35, Hemoglobin 13.1, Hematocrit 42, Mean Corpuscular Volume 97, Mean Corpuscular Hemoglobin 30, Mean Corpuscular Hemoglobin Concent 31, Red Cell Distribution Width 13.9, Platelet Count 105, Mean Platelet Volume 10.7, Neutrophils (%) (Auto) 90, Lymphocytes (%) (Auto) 3, Monocytes (%) (Auto) 7, Eosinophils (%) (Auto) 0, Basophils (%) (Auto) 0, Neutrophils # (Auto) 24.2, Lymphocytes # (Auto) 0.8, Monocytes # (Auto) 1.8, Eosinophils # (Auto) 0.0, Basophils # (Auto) 0.0, Sodium Level 162, Potassium Level 3.6, Chloride Level 131, Carbon Dioxide Level 22, Anion Gap 9, Blood Urea Nitrogen 51, Creatinine 1.38, Estimat Glomerular Filtration Rate 52, BUN/ Creatinine Ratio 37, Glucose Level 140, Calcium Level 7.8, Phosphorus Level 3.7 , Magnesium Level 2.4 01/03/18 03:33: Blood Gas Puncture Site RIGHT RADIAL, Blood Gas Patient Temperature 98.8, Arterial Blood pH 7.33, Arterial Blood Partial Pressure CO2 40, Arterial Blood Partial Pressure O2 150, Arterial Blood HCO3 21, Arterial Blood Total CO2 21.9, Arterial Blood Oxygen Saturation 99, Arterial Blood Base Excess -4.2, Ralph Test YES-POS, Blood Gas Ventilator Setting YES, Blood Gas Inspired Oxygen 40% 01/03/18 05:30: Gastric Fluid Occult Blood NEGATIVE 01/03/18 10:44: Sodium Level 161, Potassium Level 3.5, Chloride Level 132, Carbon Dioxide Level 24, Anion Gap 5, Blood Urea Nitrogen 46, Creatinine 1.11, Estimat Glomerular Filtration Rate > 60, BUN/Creatinine Ratio 41, Glucose Level 144, Calcium Level 7.8, Total Bilirubin 0.4, Aspartate Amino Transf (AST/SGOT) 14, Alanine Aminotransferase (ALT/SGPT) 34, Alkaline Phosphatase 36, Total Protein 5.0, Albumin 2.9 01/03/18 15:17: Glucometer 133 01/03/18 18:43: Vancomycin Level Trough 14.3 01/04/18 00:58: Glucometer 113 01/04/18 03:10: White Blood Count 14.3, Red Blood Count 4.34, Hemoglobin 13.0, Hematocrit 41, Mean Corpuscular Volume 95, Mean Corpuscular Hemoglobin 30, Mean Corpuscular Hemoglobin Concent 32, Red Cell Distribution Width 13.9, Platelet Count 99, Mean Platelet Volume 10.9, Neutrophils (%) (Auto) 86, Lymphocytes (%) (Auto) 7, Monocytes (%) (Auto) 6, Eosinophils (%) (Auto) 1, Basophils (%) (Auto) 0, Neutrophils # (Auto) 12.3, Lymphocytes # (Auto) 1.0, Monocytes # (Auto) 0.9, Eosinophils # (Auto) 0.2, Basophils # (Auto) 0.0, Sodium Level 159, Potassium Level 3.6, Chloride Level 132, Carbon Dioxide Level 21, Anion Gap 6, Blood Urea Nitrogen 38, Creatinine 0.88, Estimat Glomerular Filtration Rate > 60, BUN/ Creatinine Ratio 43, Glucose Level 151, Calcium Level 8.4, Phosphorus Level 1.7 , Magnesium Level 2.4, Thyroid Stimulating Hormone (TSH) 0.36 01/04/18 03:18: Blood Gas Puncture Site RIGHT RADIAL, Blood Gas Patient Temperature 97.4, Arterial Blood pH 7.38, Arterial Blood Partial Pressure CO2 34, Arterial Blood Partial Pressure O2 86, Arterial Blood HCO3 20, Arterial Blood Total CO2 21.3, Arterial Blood Oxygen Saturation 99, Arterial Blood Base Excess -4.1, Ralph Test YES-POS, Blood Gas Ventilator Setting YES, Blood Gas Inspired Oxygen 21% 01/04/18 07:55: Vancomycin Level Trough 16.9 01/04/18 09:52: Triglycerides Level 65 01/04/18 17:38: Glucometer 125 01/05/18 00:57: Glucometer 123 01/05/18 03:00: White Blood Count 12.5, Red Blood Count 4.20, Hemoglobin 12.7, Hematocrit 39, Mean Corpuscular Volume 92, Mean Corpuscular Hemoglobin 30, Mean Corpuscular Hemoglobin Concent 33, Red Cell Distribution Width 13.6, Platelet Count 118, Mean Platelet Volume 11.2, Neutrophils (%) (Auto) 85, Lymphocytes (%) (Auto) 8, Monocytes (%) (Auto) 5, Eosinophils (%) (Auto) 2, Basophils (%) (Auto) 0, Neutrophils # (Auto) 10.7, Lymphocytes # (Auto) 1.0, Monocytes # (Auto) 0.6, Eosinophils # (Auto) 0.2, Basophils # (Auto) 0.0, Sodium Level 152, Potassium Level 3.9, Chloride Level 125, Carbon Dioxide Level 22, Anion Gap 5, Blood Urea Nitrogen 26, Creatinine 0.79, Estimat Glomerular Filtration Rate > 60, BUN/ Creatinine Ratio 33, Glucose Level 144, Calcium Level 7.8, Phosphorus Level 2.2 , Magnesium Level 2.2 01/05/18 03:06: Blood Gas Puncture Site RIGHT RADIAL, Blood Gas Patient Temperature 98.2, Arterial Blood pH 7.43, Arterial Blood Partial Pressure CO2 31, Arterial Blood Partial Pressure O2 75, Arterial Blood HCO3 20, Arterial Blood Total CO2 21.0, Arterial Blood Oxygen Saturation 95, Arterial Blood Base Excess -3.6, Ralph Test YES-POS, Blood Gas Ventilator Setting YES, Blood Gas Inspired Oxygen 21% 01/05/18 06:50: Blood Gas Puncture Site RIGHT RADIAL, Blood Gas Patient Temperature 99.5, Arterial Blood pH 7.49, Arterial Blood Partial Pressure CO2 26, Arterial Blood Partial Pressure O2 85, Arterial Blood HCO3 19, Arterial Blood Total CO2 19.9, Arterial Blood Oxygen Saturation 98, Arterial Blood Base Excess -3.6, Ralph Test YES-POS, Blood Gas Ventilator Setting YES, Blood Gas Inspired Oxygen 21% 01/05/18 12:17: Glucometer 97 01/06/18 03:50: White Blood Count 14.1, Red Blood Count 4.45, Hemoglobin 13.3, Hematocrit 40, Mean Corpuscular Volume 91, Mean Corpuscular Hemoglobin 30, Mean Corpuscular Hemoglobin Concent 33, Red Cell Distribution Width 13.7, Platelet Count 169, Mean Platelet Volume 10.2, Neutrophils (%) (Auto) 84, Lymphocytes (%) (Auto) 9, Monocytes (%) (Auto) 5, Eosinophils (%) (Auto) 2, Basophils (%) (Auto) 0, Neutrophils # (Auto) 11.8, Lymphocytes # (Auto) 1.3, Monocytes # (Auto) 0.7, Eosinophils # (Auto) 0.3, Basophils # (Auto) 0.0, Sodium Level 143, Potassium Level 3.3, Chloride Level 113, Carbon Dioxide Level 23, Anion Gap 7, Blood Urea Nitrogen 19, Creatinine 0.72, Estimat Glomerular Filtration Rate > 60, BUN/ Creatinine Ratio 26, Glucose Level 104, Calcium Level 8.2, Phosphorus Level 2.7 , Magnesium Level 2.0 01/06/18 14:36: Blood Gas Puncture Site L RAD, Blood Gas Patient Temperature 100.0, Arterial Blood pH 7.47, Arterial Blood Partial Pressure CO2 29, Arterial Blood Partial Pressure O2 80, Arterial Blood HCO3 21, Arterial Blood Total CO2 21.7, Arterial Blood Oxygen Saturation 94, Arterial Blood Base Excess -2.2, Ralph Test YES-POS , Blood Gas Ventilator Setting NO, Blood Gas Inspired Oxygen 31 01/07/18 03:14: White Blood Count 14.8, Red Blood Count 4.40, Hemoglobin 13.2, Hematocrit 39, Mean Corpuscular Volume 88, Mean Corpuscular Hemoglobin 30, Mean Corpuscular Hemoglobin Concent 34, Red Cell Distribution Width 13.1, Platelet Count 165, Mean Platelet Volume 10.0, Sodium Level 142, Potassium Level 3.5, Chloride Level 111, Carbon Dioxide Level 22, Anion Gap 9, Blood Urea Nitrogen 16, Creatinine 0.76, Estimat Glomerular Filtration Rate > 60, BUN/Creatinine Ratio 21, Glucose Level 92, Calcium Level 8.2, Phosphorus Level 2.8, Magnesium Level 1.9 01/08/18 03:10: White Blood Count 15.5, Red Blood Count 4.34, Hemoglobin 12.9, Hematocrit 38, Mean Corpuscular Volume 88, Mean Corpuscular Hemoglobin 30, Mean Corpuscular Hemoglobin Concent 34, Red Cell Distribution Width 13.2, Platelet Count 171, Mean Platelet Volume 10.0, Neutrophils (%) (Auto) 85, Lymphocytes (%) (Auto) 7, Monocytes (%) (Auto) 7, Eosinophils (%) (Auto) 1, Basophils (%) (Auto) 0, Neutrophils # (Auto) 13.2, Lymphocytes # (Auto) 1.1, Monocytes # (Auto) 1.1, Eosinophils # (Auto) 0.2, Basophils # (Auto) 0.0, Neutrophils % (Manual) 84, Lymphocytes % (Manual) 7, Monocytes % (Manual) 7, Eosinophils % (Manual) 1, Basophils % (Manual) 0, Band Neutrophils 0, Reactive Lymphocytes 1, Blood Morphology Comment NORMAL, Sodium Level 143, Potassium Level 3.0, Chloride Level 110, Carbon Dioxide Level 24, Anion Gap 9, Blood Urea Nitrogen 22, Creatinine 0.90, Estimat Glomerular Filtration Rate > 60, BUN/Creatinine Ratio 24, Glucose Level 127, Calcium Level 8.4, Phosphorus Level 2.7, Magnesium Level 2.1 01/09/18 03:13: White Blood Count 11.5, Red Blood Count 3.99, Hemoglobin 12.1, Hematocrit 35, Mean Corpuscular Volume 89, Mean Corpuscular Hemoglobin 30, Mean Corpuscular Hemoglobin Concent 34, Red Cell Distribution Width 12.9, Platelet Count 179, Mean Platelet Volume 9.8, Neutrophils (%) (Auto) 75, Lymphocytes (%) (Auto) 11, Monocytes (%) (Auto) 9, Eosinophils (%) (Auto) 5, Basophils (%) (Auto) 0, Neutrophils # (Auto) 8.6, Lymphocytes # (Auto) 1.2, Monocytes # (Auto) 1.0, Eosinophils # (Auto) 0.6, Basophils # (Auto) 0.0, Sodium Level 141, Potassium Level 3.4, Chloride Level 110, Carbon Dioxide Level 23, Anion Gap 8, Blood Urea Nitrogen 19, Creatinine 0.80, Estimat Glomerular Filtration Rate > 60, BUN/ Creatinine Ratio 24, Glucose Level 105, Calcium Level 8.2, Phosphorus Level 2.7 , Magnesium Level 2.1 01/09/18 07:55: Vancomycin Level Trough 25.5 01/09/18 21:50: Vancomycin Level Trough 14.6 01/10/18 03:45: White Blood Count 8.7, Red Blood Count 4.01, Hemoglobin 11.9, Hematocrit 35, Mean Corpuscular Volume 88, Mean Corpuscular Hemoglobin 30, Mean Corpuscular Hemoglobin Concent 34, Red Cell Distribution Width 12.8, Platelet Count 210, Mean Platelet Volume 9.6, Neutrophils (%) (Auto) 72, Lymphocytes (%) (Auto) 15, Monocytes (%) (Auto) 8, Eosinophils (%) (Auto) 5, Basophils (%) (Auto) 0, Neutrophils # (Auto) 6.2, Lymphocytes # (Auto) 1.3, Monocytes # (Auto) 0.7, Eosinophils # (Auto) 0.4, Basophils # (Auto) 0.0, Sodium Level 139, Potassium Level 3.5, Chloride Level 108, Carbon Dioxide Level 22, Anion Gap 9, Blood Urea Nitrogen 14, Creatinine 0.75, Estimat Glomerular Filtration Rate > 60, BUN/ Creatinine Ratio 19, Glucose Level 97, Calcium Level 8.4, Phosphorus Level 2.6, Magnesium Level 2.1 01/11/18 15:00: Vancomycin Level Trough 16.5 01/13/18 05:37: White Blood Count 8.7, Red Blood Count 4.12, Hemoglobin 12.3, Hematocrit 37, Mean Corpuscular Volume 89, Mean Corpuscular Hemoglobin 30, Mean Corpuscular Hemoglobin Concent 33, Red Cell Distribution Width 13.3, Platelet Count 223, Mean Platelet Volume 9.8 Discharge Home Medications: Active Scripts Active Instructions to patient/family Please see electronic discharge instructions given to patient. Clinical Quality Measures DVT/VTE Risk/Contraindication: Risk Factor Score Per Nursin RFS Level Per Nursing on Admit: 4+=Very High FELICIA HUYNH DO January 17, 2018 07:24
== END 2018-01-14 14:30 | disposition hospice, inpatient (51) | DRG 871 ==
LOC: ER 11:17 → EDUNIT# 11:17 → ICU 14:39 → 4TH 01-10 18:20
PROVIDERS: ADMIT Internal Medicine; ATTEND Internal Medicine
PROC: 5A1945Z Respiratory Ventilation, 24-96 Consecutive Hours (ICD-10-PCS; principal; 2018-01-02)
PROC: 0BDM8ZX Extraction of Bilateral Lungs, Via Natural or Artificial Opening Endoscopic, Diagnostic (ICD-10-PCS; 2018-01-02)
DX: A41.9 Sepsis, unspecified organism (principal); R65.21 Severe sepsis with septic shock; J18.9 Pneumonia, unspecified organism; J96.01 Acute respiratory failure with hypoxia; J96.02 Acute respiratory failure with hypercapnia; J98.09 Other diseases of bronchus, not elsewhere classified; E87.0 Hyperosmolality and hypernatremia; Z66 Do not resuscitate; G30.9 Alzheimer's disease, unspecified; F02.81 Dementia in other diseases classified elsewhere, unspecified severity, with behavioral disturbance; R13.12 Dysphagia, oropharyngeal phase; E86.0 Dehydration; I25.10 Atherosclerotic heart disease of native coronary artery without angina pectoris; I10 Essential (primary) hypertension; E78.00 Pure hypercholesterolemia, unspecified; N42.9 Disorder of prostate, unspecified; R00.1 Bradycardia, unspecified; E83.39 Other disorders of phosphorus metabolism; Z86.73 Personal history of transient ischemic attack (TIA), and cerebral infarction without residual deficits
CPT/HCPCS: 36415; 51702; 71045; 80048; 80053; 80202; 81000; 82040; 82271; 82330; 82805; 82962; 83605; 83735; 83880; 84100; 84443; 84478; 85007; 85025; 85027; 85610; 85730; 86141; 87040; 87070; 87077; 87081; 87088; 87101; 87106; 87116; 87186; 87205; 88112; 88305; 93005; 94002; 94003; 94640; 94668; 94760; 94799; 96361; 96365; 96367